=== PATIENT | female | born 1945 | race Caucasian/White ===

== ENCOUNTER 2020-02-28 10:40 | Inpatient (IN) | payer MEDICARE ==
[~2020-02-28] VITALS: Ht 157.5 cm; Wt 62.4 kg
[~2020-02-28 10:40] MED LIST: ALPRAZolam 0.25 MG (XANAX) TAB PO PRN; AMIT100T2 PO; BISACODYL 10 MG SUPP (DULCOLAX) PR PRN; CALC-80 PO; CALCIUM CARBONATE 500 MG (TUMS) TAB.CHEW PO PRN; CARV10CP PO; CHOL10003 PO; DOCUSATE SODIUM 100 MG (COLACE) CAP PO PRN; EZET1TAB43 PO; FISH OIL 1,2001 EAC1 PO; FLEET ENEMA ADULT 1 EA BTL PR PRN; FRS325T PO; HCT25T PO; HYDR1TAB PO; KCL10CCR PO; LACTULOSE SYRUP 10GM/15ML (ENULOSE) 30ML UDC PO PRN; LEFL20TA PO; LEFL20TA4 PO; LEVE1U SQ; LIRA0.6P3 SQ; LOPERAMIDE 2 MG (IMODIUM) TABLET PO PRN; LVT.112T PO; MULT-608 PO; NF-PILO5T PO; ONDANSETRON 4 MG (ZOFRAN) ORAL DISSOLVE TAB PO PRN; PIOG1TBM PO; PNT40TEC PO; SULF1TAB38 PO; TERB250T10 PO; TRAM50TA2 PO; diphenhydrAMINE 25 MG TAB (BENADRYL) PO PRN; guaiFENesin/CODEINE (ROBITUSSIN AC) 10ML UDC PO PRN
--- NOTE | 2020-02-28 10:40 | NUR ---
NATHANIEL CAMARILLO admitted to room 223-1, with an admitting diagnosis of MYOPATHY, on 02/28/20 from [facility] via [facility], accompanied by STAFF.NATHANIEL CAMARILLO introduced to surroundings, call light, bed controls, phone, TV, temperature control, lights, meal times, smoking policy, visitor policy, side rail policy, bathrooms and showers. Patient Rights given to patient in the handbook.NATHANIEL CAMARILLO verbalizes understanding that [facility] is not responsible for the loss or damage to any personal effects or valuables that are kept in the patients posession during their hospitalization. The following Patient Care Plans were discussed with the PT: Discharge Planning, PAIN CONTROL,PT/OT/ST, and WOUND CARE. NATHANIEL CAMARILLO verbalizes understanding of Interdisciplinary Patient Education. Patient and/or family were informed about the Rapid Response Team and its purpose. Patient received Patient Rights Booklet, which includes Privacy Act Statement and Data Collection Information Summary.
[2020-02-28] MEDS ORDERED: GENT30OI2 TP ×2 (11:09)
[2020-02-28] MEDS ORDERED: AMLO-251 PO (11:09)
[2020-02-28] MEDS ORDERED: ACHD5005 PO (11:09)
[2020-02-28] MEDS ORDERED: MULT-422 PO (11:09)
[2020-02-28] MEDS ORDERED: INSU100V6 SQ (11:09)
[2020-02-28] MEDS ORDERED: PANT40VI IV (11:09)
[2020-02-28] MEDS ORDERED: CETI10TA17 PO (11:09)
[2020-02-28] MEDS ORDERED: TRAM50TA3 PO (11:09)
[2020-02-28] MEDS ORDERED: ARGI1POW23 PO (11:09)
[2020-02-28] MEDS ORDERED: ASCO-262 PO (11:09)
[2020-02-28] MEDS ORDERED: CRV25T PO (11:09)
[2020-02-28] MEDS ORDERED: INSU100V39 SQ (11:09)
[2020-02-28] MEDS ORDERED: AMIO200T6 PO (11:09)
[2020-02-28] MEDS ORDERED: ASPI-999 PO (11:10)
[2020-02-28] MEDS ORDERED: SIME80TA16 PO (11:12)
--- NOTE | 2020-02-28 11:16 | NUR ---
THE MED REC WAS ENTERED USING THE DISCHARGE ORDERS FROM [facility] WHEN I GET DISCHARGE ORDERS FROM [facility] THEY PHYSICIAN WILL [place] NEXT TO EACH MEDICATION IF THEY WANT THEM TO BE CONTINUED WITH A YES OR NO. THE FOLLOWING MEDICATIONS ARE LISTED ON THE DISCHARGE WITH A "NO" NEXT TO THEM SO THEY WERE NOT INCLUDED ON THE MED REC: ENOXAPARIN 40MG, LANTUS (THERE IS AN ORDER CONTINUED FOR 8UNITS HS WHICH I DID INCLUDE), PROTONIX INJ, DEXTROSE 50% PRN. AFTER THE MEDICATIONS ARE CONTINUED I WILL SPEAK WITH THE PT AND MAKE ANY CHANGES TO THE MED REC/NOTES IF NEEDED Addendum: 03/03/20 at 1445 by CHAZ HARDING [facility] SPOKE WITH THE PT, WENT THRU THE EXT MED HISTORY, GOT A MEDICATION LIST FROM [facility] AND CALLED [facility] TO COMPLETE THE MED REC MEDICATIONS THAT HAVE BEEN REMOVE DUE TO PT NOT TAKING PRIOR TO [facility]: AMIODARONE 200MG VITAMIN C 500MG GENTAMICIN 0.1% OINT (SCHEDULED OR PRN) HUMALOG LANTUS MTV NORCO 5/325MG MEDICATIONS THAT WERE ADDED TO THE MED REC DUE TO PT TAKING PRIOR TO [facility]: ACTOS 30MG VICTOZA PILOCARPINE 5MG LEFLUNOMIDE 20MG LEVOTHYROXINE 112MCG FENOFIBRATE 160MG AMITRIPTYLINE 100MG ATORVASTATIN 40MG & 20MG (PT TAKES BOTH TO EQUAL 60MG DAILY) PANTOPRAZOLE 40MG OXYBUTYNIN 5MG- DIRECTIONS ARE 5MG TID HOWEVER PT ONLY TAKES 5MG BID OTC MEDS: ASPIRIN 81MG ZYRTEC 10MG PRN SIMETHICONE- [facility] HAS THIS A SCHEDULED MEDICATION HOWEVER AT HOME PT JUST USES PRN CALCIUM W/ VIT D FISH OIL VITAMIN D5000 Addendum: 03/04/20 at 1255 by CHAZ HARDING 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 TODAY WHEN I WENT AND SPOKE WITH THE PT SHE LET ME KNOW OF THE FOLLOWING CHANGES: LEVOTHYROXINE- ACCORDING TO THE PT SHE TAKES 1 TAB DAILY EXCEPT ON MONDAYS SHE DOESNT TAKE A DOSE ZYRTEC 10MG- PT SAYS SHE TAKES THIS BID, WHEN QUESTIONED TO MAKE SURE OF THESE DIRECTIONS, SHE BECAME ADAMANT THAT SHE TOOK IT TWICE DAILY PT MENTIONED SHE TAKES ATORVASTATIN 20MG EVERY OTHER DAY, I LET HER KNOW THAT [facility] HAS THE DIRECTIONS ONCE DAILY- PT SHRUGGED AND ONCE AGAIN SAID SHE TAKES IT EVERY OTHER DAY. WHEN I VERIFIED LEFLUNOMIDE 20MG (DIRECTIONS PER LILIA ARE 1 TAB EVERY OTHER DAY) PT SAYS SHE TAKES 1 TAB DAILY. WHEN I EXPLAIN THE DIRECTIONS FROM [facility] AL[facility] WITH THE QUAINTLY AND DAYS SUPPLIES GIVEN, PT ADMITS SHE MAY HAVE THEM MIXED UP. WHEN I ASKED THE PT ABOUT THE 2 DIFFERENT STRENGTHS OF ATORVASTATIN SHE WAS UNAWARE OF THIS AND SAYS SHE JUST TAKES THE 20MG. THE MED REC HAS BEEN UPDATED WITH ALL THE ABOVE CHANGES
[2020-02-28 11:56] VITALS: BP 137/72
--- NOTE | 2020-02-28 12:03 | Physical Therapy Evaluation ---
PT Evaluation-General Medical Diagnosis Admission Date Feb 28, 2020 at 10:40 Medical Diagnosis: Myopathy Onset Date: Feb 28, 2020 Therapy Diagnosis Therapy Diagnosis: Impaired mobility and strength Precautions Precautions/Isolations: Contact Isolation (c. diff) Weight Bear Status Right Lower Extremity: Right Full Weight Bearing Left Lower Extremity: Left Full Weight Bearing Referral Physician: Flavio Reason for Referral: Evaluation/Treatment Medical History Pertinent Medical History: Atrial Fib (with RVR), DM, HTN, Hypothroidism, Renal Insufficiency (single kidney) Additional Medical History Ovarian Cancer sub-total colectomy kidney removal appendectomy cholecystectomy hysterectomy Current History [facility]; pt diagnosed with colitis and this has started a prolonged hospital stay. During hosptilization pt has coded and received subtotal colectomy and ileostomy and amanuel-splint thick biopsy; postoperatively pt went into A. fib with RVR and underwent cardioversion secondary to hemodynamic instability; pt also diagnosed with C.diff. Pt has been seen by [facility] wound care for abdominal incision. Reviewed History: Yes Social History Home: Single Level Current Living Status: Alone (children live nearby) Entry Into Home: Stairs With Railing PT Steps Into Home: 3 PT Steps Inside Home: 0 Prior Prior Level of Function SCALE: Activities may be completed with or without assistive devices. 3-Sxsgwngbim-myouftl completes the activity by him/herself with no assistance from a helper. 5-Set-up or Clean-up Assistance-helper sets up or cleans up; patient completes activity. Brave assists only prior to or following the activity. 4-Supervision or Touching Assistance-helper provides verbal cues and/or t ouching/steadying and/or contact guard assistance as patient completes activity. Assistance may be provided throughout the activity or intermittently. 3-Partial/Moderate Assistance-helper does LESS THAN HALF the effort. Brave lifts, holds or supports trunk or limbs, but provides less than half the effort. 2-Substantial/Maximal Assistance-helper does MORE THAN HALF the effort. Brave lifts or holds trunk or limbs and provides more than half the effort. 9-Kfqvuyviy-hrtecf does ALL the effort. Patient does none of the effort to complete the activity. Or, the assistance of 2 or more helpers is required for the patient to complete the activity. If activity was not attempted, code reason: 7-Patient Refused. 9-Not Applicable-not attempted and the patient did not perform the activity before the current illness, exacerbation or injury. 10-Not Attempted due to Environmental Limitations-(lack of equipment, weather restraints, etc.). 88-Not Attempted due to Medical Conditions or Safety Concerns. Bed Mobility: 6 Transfers (B,C,W/C): 6 Gait: 6 Stairs: 6 Wheelchair Mobility: 9 Indoor Mobility (Ambulation): Independent Stairs: Independent Prior Devices Use: None PT Evaluation-Current Subjective Pt presents sitting upright in wheelchair. Pt agrees to PT. Pt reports no pain. Pt/Family Goals Gain strength to return home Objective Patient Orientation: Person, Place, Time, Eyes Open, Situation Attachments: Colostomy/Ileostomy ROM/Strength ROM Lower Extremities WFL Strength Lower Extremities R hip flexion 4/5 L hip flexion 3+/5 R knee ext 5/5 L knee ext 5/5 R knee flex 5/5 R knee flex 4+/5 Integumentary/Posture Integumentary refer to nursing notes Bowel Incontinence: No Bladder Incontinence: No Posture WFL Neuromuscular (Tone, Coordination, Reflexes) No noticeable impairments Sensory Vision: Wears Glasses Hearing: Functional Sensation Right Lower Extremit: Intact Sensation Left Lower Extremity: Intact Sensation Lower Extremities BLE sensation intact to light touch L2-S2 Transfers Roll Left & Right (QC): 4 Sit to Lying (QC): 4 Lying to Sitting/Side of Bed(Q: 4 Sit to Stand (QC): 4 Chair/Vhc-my-Guqqn Xfer(QC): 4 Toilet Transfer (QC): 4 Car Transfer (QC): 4 Pt able to complete bed mobility with SBA. Pt given CGA for sit to stand, chair to chair, toilet, and car transfers. Pt completes car transfers with step in-sit down-bring other leg into car method; pt struggled to lift initial leg into vehicle and was instructed on the sit and then BLE swing in method to make things easier. Gait Does the Patient Walk?: Yes Mode of Locomotion: Walk Anticipated Mode of Locomotion: Walk Walk 10 feet (QC): 4 Walk 50 ft with 2 Turns(QC): 4 Walk 150 ft (QC): 4 Walking 10ft/uneven surface-QC: 4 Distance: 150' Gait Assistive Device: FWW Comments/Gait Description Pt is ambulating with step through pattern and receives CGA for 150' and over uneven surface. Wheelchair Training Does the Pt Use a Wheelchair?: No Wheel 50 ft with 2 turns (QC): 9 Wheel 150 ft (QC): 9 Stairs #of Steps: 1 1 Step (curb) (QC): 4 4 Steps (QC): 88 12 Steps (QC): 88 Walking Assistive Device: Walker Pt able to ascend/descend one step steadily; pt utilized walker for UE weight support and therapist provided SBA. Balance Sitting Static: Normal Sitting Dynamic: Normal Standing Static: Normal Standing Dynamic: Normal Picking up an Object (QC): 88 Treatment Co-treated [id number] due to patient's limitation in strength, mobility, and coordination of LEs and UEs. PT focuses on patient's ambulation, mobility and transfers while OT focused on dressing, bathing, and ADLs. Assessment/Needs Pt is weak and fatigues easily with activity. Pt has large incision on abdomen but reports no precautions to bending or twisting. Pt has not used walker in PLOF but is able to maneuver AD in safe manner. Rehab Potential: Good PT Short Term Goals Short Term Goals Time Frame: Mar 06, 2020 Roll Left & Right: 6 Sit to lyin Lying to sitting on side of be: 6 Sit to stand: 6 Chair/ynw-lx-hicwc transfer: 5 4 steps: 4 Picking up objects: 4 PT Rotary Derrick Operator Goals Rotary Derrick Operator Goals PT Rotary Derrick Operator Goals Time Frame: Mar 13, 2020 Roll Left & Right (QC): 6 Sit to Lying (QC): 6 Lying-Sitting on Side/Bed(QC): 6 Sit to Stand (QC): 6 Chair/Ulw-br-Tedvz Xfer(QC): 6 Toilet Transfer (QC): 6 Car Transfer (QC): 6 Does the Patient Walk: Yes Walk 10 feet (QC): 6 Walk 50ft with 2 Turns (QC): 6 Walk 150 ft (QC): 6 Walking 10ft on Uneven Surface: 6 1 Step (curb) (QC): 6 4 Steps (QC): 6 12 Steps (QC): 6 Picking up an Object (QC): 6 Does the Pt use WC or Scooter?: No Wheel 50 feet with 2 turns (QC: 9 Wheel 150 feet: 9 PT Plan Problem List Problem List: Activity Tolerance, Functional Strength, Safety, Balance, Gait, Transfer, Bed Mobility, ROM Treatment/Plan Treatment Plan: Continue Plan of Care Treatment Plan: Bed Mobility, Education, Functional Activity Maikel, Functional Strength, Group Therapy, Gait, Safety, Therapeutic Exercise, Transfers Treatment Duration: Mar 13, 2020 Frequency: At least 5 of 7 days/Wk (IRF) Estimated Hrs Per Day: 1.5 hours per day Patient and/or Family Agrees t: Yes Safety Risks/Education Patient Education: Gait Training, Transfer Techniques, Steps, Correct Pos itioning, Safety Issues Teaching Recipient: Patient Teaching Methods: Demonstration, Discussion Response to Teaching: Reinforcement Needed Discharge Recommendations Plan Pt will work on bed mobility, balance and gait training, transfers, and therapeutic exercises. Therapy Discharge Recommendati: Home & Family Time/GCodes Time In: 1040 Time Out: 1150 Total Billed Treatment Time: 60 Total Billed Treatment 1 visit EVL 10' FA 50' Pt eval [id number]; OT eval [id number]; Co-treated [id number] due to patient's limitation in strength, mobility, and coordination of LEs and UEs. PT focuses on patient's ambulation, mobility and transfers while OT focused on dressing, bathing, and ADLs. ARELI JENNINGS PT Feb 28, 2020 12:03
--- NOTE | 2020-02-28 12:04 | Occupational Therapy Eval ---
OT Evaluation-General/PLF Medical Diagnosis Admission Date Feb 28, 2020 at 10:40 Medical Diagnosis: colitis with colectomy, debility Onset Date: Jan 20, 2020 Therapy Diagnosis Therapy Diagnosis: Decreased ADL status Precautions Precautions/Isolations: Contact Isolation (C-diff hx), Standard Precautions Referral Physician: Flavio Referral Reason: Activity Tolerance, Self Care, Evaluation/Treatment, Strengthening/ROM Medical History Additional Medical History HTN, DM, a fib with RVR, hypothyroidism, single kidney, ovarian Ca Current History 01/19 admits with abdominal pain and colitis 01/20 code blue status with cardiac arrest/ resp failure during subtotal colectomy/ ileostomy; intubated with PNA 01/29 extubated Reviewed History: Yes Social History Home: Single Level Current Living Status: Alone Entry Into Home: Stairs With Railing Steps Into Home: 1 Steps Inside Home: 0 ADL-Prior Level of Function SCALE: Activities may be completed with or without assistive devices. 6-Qgpvnlldtp-vmwcukr completes the activity by him/herself with no assistance from a helper. 5-Set-up or Clean-up Assistance-helper sets up or cleans up; patient completes activity. [place] assists only prior to or following the activity. 4-Supervision or Touching Assistance-helper provides verbal cues and/or touching/steadying and/or contact guard assistance as patient completes activity. Assistance may be provided throughout the activity or intermittently. 3-Partial/Moderate Assistance-helper does LESS THAN HALF the effort. [place] lifts, holds or supports trunk or limbs, but provides less than half the effort. 2-Substantial/Maximal Assistance-helper does MORE THAN HALF the effort. [place] lifts or holds trunk or limbs and provides more than half the effort. 7-Vmwvapdat-iwncum does ALL the effort. Patient does none of the effort to complete the activity. Or, the assistance of 2 or more helpers is required for the patient to complete the activity. If activity was not attempted, code reason: 7-Patient Refused. 9-Not Applicable-not attempted and the patient did not perform the activity before the current illness, exacerbation or injury. 10-Not Attempted due to Environmental Limitations-(lack of equipment, weather restraints, etc.). 88-Not Attempted due to Medical Conditions or Safety Concerns. ADL PLOF Comments Pt was IND without use of AE during I/ADLs. Self Care: Independent Functional Cognition: Independent DME/Equipment: Bath Chair, Grab Bars, Shower Occupation: retired Drive Self: Yes OT Current Status Subjective Pt admits from outside hospital. Pt is accompanied by OT/ PT to ARU. Pt alert/ oriented, very pleasant, denies pain. Pt agreeable to OT/ PT co-treat. PT eval: [id number] OT eval: [id number] OT/ PT co-treat: [id number]: OT addresses UE movement, ADL status, problem solving; PT addresses LE movement, balance/ transfers. [id number] (25): Pt in recliner. States / pain abdomen. Pt states pain meds already administered. Continued at 11/07 post session. Mental Status/Objective Patient Orientation: Normal For Age Attachments: Colostomy/Ileostomy Current Glasses/Contacts: Yes Hearing Aids: No Dentures/Partials: Yes Hand Dominance: Right Upper Extremity ROM WFL BUE Upper Extremity Coordination WFL BUE Upper Extremity Sensation WFL BUE Upper Extremity Strength WFL BUE (4/5) Edema: none noted. ADL-Treatment Eating (QC): 6 (drinks with IND. per clinical judgment pt is IND with eating tasks.) Oral Hygiene (QC): 6 (IND per clinical judgement) Shower/Bathe Self (QC): 4 (CGA and cues for shower chair transfer. Pt able to reach all areas. SBA during showering/ CGA in stance. ) Upper Body Dressing (QC): 5 (s/u, denies bra donning. ) Lower Body Dressing (QC): 4 (threads BLE in sit witout AE, stands with CGA and hikes over hips.) On/Off Footwear (QC): 3 (min A doffing knee high socks, pt completes sock donning with IND.) Toileting Hygiene (QC): 4 (CGA in stance for bottom hygiene.) Other Treatments Pt completes sit to stand from w/c level with CGA, ambulates ~3 steps to w/c without AE/ with CGA. Pt is pushed to ARU, educated on OT role and ARU expectations. Pt completes PT eval/ OT eval. Pt's nurse notified of large abdominal wound. Nursing cares for and pt is wrapped completely prior to shower, requires 3 minute rest break prior to stand/ showering tasks. Pt completes bed mob and sit to stand SBA, CGA ambulation and competes showering/ dressing as outlined. Pt states fatigue post-shower. Pt has good problem solving. Sits in recliner end of session, all needs met, call light in reach. Pt seen for individual tx in recliner post-PT. Pt states fatigue and 7/10 pain in abdomen. Pt states has already had pain pills. Pt agrees to UE fx activity tolerance/ strengthening activities. Pt completes 10 minutes continuous reaching/ fine motor task. No SOB. Pt given hand out and educated on UE theraband ex with yellow theraband. Pt completes 10 reps bilaterally of following ex: shoulder scaption, back flies, shoulder int/ext rotation, triceps/ biceps. Pt completes with 2 rest breaks with minimal SOB. pt is encouraged to take rest breaks and to complete ex 2-3 x per day over weekend with 10-15 reps each UE. Pt agrees, requests back to bed. Pt sit to stand with SBA and ambulates to bed, sit to supine SBA. Pt adjusted in bed, all needs met, call light in reach. Education OT Patient Education: Correct positioning, Exercise program, Home exercise program, Purpose of tx/functional activities, Rehab process, Safety issues, Transfer techniques Teaching Recipient: Patient Teaching Methods: Demonstration, Discussion Response to Teaching: Verbalize Understanding, Return Demonstration OT Short Term Goals Short Term Goals Time Frame: Mar 06, 2020 Lower body dressin Putting on/taking off footwear: 6 OT [facility] Goals Marine Rigger Goals Time Frame: Mar 13, 2020 Eating (QC): 6 Oral Hygiene (QC): 6 Toileting Hygiene (QC): 6 Shower/Bathe Self (QC): 6 Upper Body Dressing (QC): 6 Lower Body Dressing (QC): 6 On/Off Footwear (QC): 6 Demonstrate ability to change colonoscopy bag with s/u-IND. Additional Goals: 1-Demonstrate ADL Tasks, 2-Verbalize Understanding, 3- ImproveStrength/Maikel 1=Demonstrate adherence to instructed precautions during ADL tasks. 2=Patient will verbalize/demonstrate understanding of assistive devices/modifications for ADL. 3=Patient will improve strength/tolerance for activity to enable patient to perform ADL's. OT Education/Plan Problem List/Assessment Assessment: Decreased Activ Tolerance, Impaired Funct Balance, Impaired I ADL's, Impaired Self-Care Skills Discharge Recommendations Plan/Recommendations: Continue POC Therapy Discharge Recommendati: Home & Family Treatment Plan/Plan of Care Treatment,Training & Education: Yes Patient would benefit from OT for education, treatment and training to promote independence in ADL's, mobility, safety and/or upper extremity function for ADL's. Plan of Care: ADL Retraining, Functional Mobility, Group Exercise/Act as Ind, UE Funct Exercise/Act, UE Neuromus Re-Ed/Coord Treatment Duration: Mar 13, 2020 Frequency: At least 5 of 7 days/Wk (IRF) Estimated Hrs Per Day: 1.5 hours per day Agreement: Yes Rehab Potential: Good Time/GCodes Start Time: 10:50 (1325) Stop Time: 11:50 (1350) Total Time Billed (hr/min): 85 (60+25) Billed Treatment Time PT eval: [id number] OT eval: [id number] OT/ PT co-treat: [id number]: OT addresses UE movement, ADL status, problem solving; PT addresses LE movement, balance/ transfers. 1, EVM (10), ADL 3 (50)= 60 1, EX 2 = 25 Total time: 85 SEEMA AGUIRRE OTR Feb 28, 2020 12:04
[2020-02-28] MEDS ORDERED: GENTAMICIN SULFATE TP PRN (12:15)
--- NOTE | 2020-02-28 12:18 | PM&R Post Admission Assessment ---
PM&R HP Date of Visit: Feb 28, 2020 Time of Visit: 12:20 History of Present Illness CC: Debility following colitis episode s/p ileostomy s/p cardiac arrest 01/21/20 HPI: This is a 75yoWF clinic patient of Jose L Corbett who presented from [place] stay from 02/08/20 until today 02/28/20 to recover from long stay at [facility] following subtotal colectomy and placement of ileostomy and amanuel-splint thick biopsy s/p AF w/RVR episode s/p cardioversion due to instability. C diff colitis was diagnosed receiving Vanc IV and rectal enema and Flagyl. Patient had been on TPN. Patient now eating a bit more but more loose stools so C diff sent out today which was negative so will monitor only. Abdominal wound will require wound care. PLOF independent and driving. [facility] KATHY note: Joseluis Kidd MD Date of Admission:01/21/2020 Date of Discharge:02/07/2020 Diagnosis S/P colectomy Debility On total parenteral nutrition Ileostomy status Type 2 diabetes mellitus with hyperglycemia Pleural effusion on right Thrombocytopenia Abnormal LFTs (liver function tests) Pulmonary congestion CKD (chronic kidney disease) stage 3, GFR 30-59 ml/min Benign hypertension Primary hypothyroidism Mixed hyperlipidemia Resolved Hospital Problems Diagnosis Date Resolved C. difficile colitis 02/07/2020 Accelerated hypertension 02/07/2020 Acute metabolic encephalopathy 02/07/2020 HAP (hospital-acquired pneumonia) 02/07/2020 Ischemia, bowel; distal small bowel and colon 02/07/2020 Ischemic colitis 02/07/2020 Ventilator dependence 02/07/2020 Acute respiratory failure 02/07/2020 Hyponatremia 02/07/2020 Paroxysmal atrial fibrillation with rapid ventricular response 02/07/2020 Hemodynamic instability 02/07/2020 w Cardiac arrest 02/07/2020 Severe sepsis with septic shock 02/07/2020 Zoe Hutchinson a 75 y.o.femalewho was admitted to [facility] on 01/21/2020for evaluation and management of abdominal pain and diarrhea. She was admitted for further evaluation. On the day of admission in the morning, patient fainted and CODE BLUE was called. Patient was found to be pulseless for approximately 2 minutes, chest compressions were started. ABG showed metabolic acidosis, 1 ampoule of bicarb was given with 1 L of normal saline bolus. Patient was then transferred to ICU/TCU. ROSCwas achieved. Patient kept complaining of persistent abdominal pain and imaging showed edematous small bowel with free intraperitoneal fluid. She was hypotensive and was requiring vasopressor. General surgery, GI and infectious disease were consulted. She underwent subtotal colectomy, and ileostomy and perisplenic biopsy. In the postoperative phase she went into A. fib with RVR and then was cardioverted by Dr. Vann because of hemodynamic instability. During her time in the hospital she was treated with IV meropenem, IV ciprofloxacin, IV Flagyl, vancomycin enemas for perirectal colitis secondary to C. difficile. During her hospital course she had worsening thrombocytopenia which was thought to be likely secondary to antibiotic use versus worsening infection. She progressed well and then was downgraded to general floor. Her stay was uneventful on the general floorand her confusion also resolved. She was then subsequently discharged to [facility] and was recommended to continue micafungin till 02/11, rectal vancomycin, IV Flagyl till 02/07 and doxycycline till 02/07 for possible pneumonia. She was recommended to follow-up with PCP, ID, general surgery and hematology after discharge. Repeat CBC, CMP, ESR and CRP weekly while on antibiotics. At the time of discharge patient was at her baseline mentation.It is recommended that thefollow-up provider at [facility] continue TPN and consult in-house fire extinguisher sprinkler inspector/dietitian for further recommendation. Amiodarone prescription was given as per cardiology and antibiotics/antifungal medications as per infectious disease service. Antibiotic medications were prescribed by infectious disease as per culture results. Past Tmfguqx-Begyyk-Bakbzk Hx Past Med/Social Hx: Reviewed Nursing Past Med/Soc Hx, Reviewed and Corrections made Patient Social History Marrital Status: Employed/Student: retired Alcohol Use: Denies Use Recreational Drug Use: No Smoking Status: Former Smoker Former Smoker, Quit: Jul 28, 1984 Type Used: Cigarettes Physical Abuse Screen: No Sexual Abuse: No Recent Foreign Travel: No Contact w/other who traveled: No Recent Infectious Disease Expo: No Immunizations Up To Date Date of Pneumonia Vaccine: Feb 06, 2020 Date of Influenza Vaccine: Feb 05, 2020 Past Medical History Cardiac: Atrial Fibrillation, Hypertension Reproductive: No solitary kidney Gastrointestinal: Colitis Endocrine: Diabetes, Insulin dep, Hypothyroidsim Cancer: Ovarian Did You Recieve Any Treatments: Yes What Type of Treatment Did You: Surgical Intervention Family History Arthritis 19 MOTHER Cardiovascular disease 19 MOTHER Diabetes mellitus 19 FATHER 19 MOTHER Self Care: Independent Functional Cognition: Independent Occupation: retired Drive Self: Yes Eatin (drinks with IND. per clinical judgment pt is IND with eating tasks.) Oral Hygiene: 6 (IND per clinical judgement) Shower/Bathe Self: 4 (CGA and cues for shower chair transfer. Pt able to reach all areas. SBA during showering/ CGA in stance. ) Upper Body Dressin (s/u, denies bra donning. ) Lower Body Dressin (threads BLE in sit witout AE, stands with CGA and hikes over hips.) On/Off Footwear: 3 (min A doffing knee high socks, pt completes sock donning with IND.) Toileting Hygiene: 4 (CGA in stance for bottom hygiene.) PM&R Allergy/Meds/Data Review Allergies Coded Allergies: Penicillins (Verified Allergy, Unknown, 02/28/20) raspberry (Verified Allergy, Unknown, 02/28/20) Home Medications Scheduled Amiodarone HCl (Amiodarone HCl), 200 MG PO BID, (Reported) Amlodipine Besylate (Amlodipine Besylate), 10 MG PO DAILY, (Reported) Ascorbate Calcium (Vitamin C), 500 MG PO DAILY, (Reported) Aspirin (Aspirin), 81 MG PO DAILY, (Reported) Carvedilol (Coreg), 25 MG PO BID, (Reported) Cetirizine HCl (Cetirizine HCl), 10 MG PO DAILY, (Reported) Gentamicin Sulfate (Gentamicin Sulfate), 1 APPLIC TP DAILY, (Reported) Insulin Glargine,Hum.rec.anlog (Lantus), 8 UNIT SQ HS, (Reported) Insulin Lispro (Insulin Lispro), 0-14 UNIT SQ ACHS, (Reported) Multivitamin with Minerals (One Daily Plus Minerals), 1 EACH PO DAILY, (Reported) Simethicone (Simethicone), 80 MG PO TID, (Reported) Scheduled PRN Gentamicin Sulfate (Gentamicin Sulfate), 1 APPLIC TP BID PRN for WOUNDS/INFECTIONS, (Reported) Hydrocodone/Acetaminophen (Hydrocodone-Acetamin 5-325 mg), 1 EACH PO QID PRN for PAIN-SEVERE (8-10), (Reported) Tramadol HCl (Tramadol HCl), 100 MG PO TID PRN for PAIN-MODERATE (5-7), (Reported) Discontinued Medications Amitriptyline Hcl (Amitriptyline Hcl), 1 EACH PO HS, (Reported) Discontinued Reason: No Longer Taking Calcium Carbonate/Vitamin D3 (Calcium 600 + D Caplet), 2 EACH PO DAILY, (Reported) Discontinued Reason: No Longer Taking Carvedilol Phosphate (Coreg Cr), 25 MG PO DAILY, (Reported) Discontinued Reason: No Longer Taking Cholecalciferol (Vitamin D), 2,000 UNIT PO BID, (Reported) Discontinued Reason: No Longer Taking Ezetimibe/Simvastatin (Vytorin 10-20 Mg Tablet), 1 EACH PO DAILY, (Reported) Discontinued Reason: No Longer Taking Ferrous Sulfate (Iron), 1 TAB PO DAILY, (Reported) Discontinued Reason: No Longer Taking Hydrochlorothiazide (Hydrochlorothiazide), 1 EACH PO DAILY, (Reported) Discontinued Reason: No Longer Taking Hydrocodone Bit/Acetaminophen (Vicodin 5-500 Tablet), 1-2 EACH PO Q4H-6H PRN, (Reported) Discontinued Reason: No Longer Taking Insulin Determir (Levemir Pen), 15 UNITS SQ HS, (Reported) Discontinued Reason: No Longer Taking Leflunomide (Leflunomide), 20 MG PO BID, (Reported) Discontinued Reason: No Longer Taking Levothyroxine Sodium (Levothyroxine 112 Mcg Tab), 1 EACH PO DAILY, (Reported) Discontinued Reason: No Longer Taking Liraglutide (Victoza 3-Hussain), 18 UNITS SQ DAILY, (Reported) Discontinued Reason: No Longer Taking Multivitamins (Multiple Vitamin), 1 TAB PO DAILY, (Reported) Discontinued Reason: No Longer Taking [place]-3 Fatty Acids/Fish Oil (Fish Oil 1,200 Mg Softgel), 1 EACH PO DAILY, (Reported) Discontinued Reason: No Longer Taking Pantoprazole Sodium (Protonix), 1 TAB PO DAILY, (Reported) Discontinued Reason: No Longer Taking Pilocarpine (Salagen (Non-Formulary)), 5 MG PO QID, (Reported) Discontinued Reason: No Longer Taking Pioglitazone Hcl/Metformin Hcl (Actoplus Met Xr 30-1,000 Mg Tb), 1 EACH PO DAILY, (Reported) Discontinued Reason: No Longer Taking Potassium Chloride (Klor-Con 10), 10 MEQ PO TID, (Reported) Discontinued Reason: No Longer Taking Terbinafine Hcl (Terbinafine Hcl), 250 MG PO DAILY, (Reported) Discontinued Reason: No Longer Taking Tramadol Hcl (Tramadol Hcl), 50 MG PO Q4 PRN, (Reported) Discontinued Reason: No Longer Taking Current Medications Current Medications Reviewed Review of Systems Constitutional: see HPI, malaise, weakness EENTM: no symptoms reported Respiratory: no symptoms reported Cardiovascular: no symptoms reported Gastrointestinal: abdominal pain, diarrhea Genitourinary: no symptoms reported Musculoskeletal: no symptoms reported Skin: no symptoms reported Psychiatric/Neurological: No Symptoms Reported Physical Exam Physical Exam Vital Signs Vital Signs - First Documented 02/28/20 11:56 Temp 35.7 Pulse 71 Resp 18 B/P (MAP) 137/72 O2 Delivery Room Air O2 Flow Rate 96.00 Capillary Refill : Height, Weight, BMI Height: '" Weight: lbs. oz. kg; 161.29 BMI Method:Stated General Appearance: No Apparent Distress, WD/WN, Chronically ill Eyes: Bilateral Eye Normal Inspection, Bilateral Eye PERRL HEENT: PERRL/EOMI, Normal ENT Inspection, Pharynx Normal Neck: Full Range of Motion, Normal Inspection, Non Tender, Supple, Carotid Bruit Respiratory: Chest Non Tender, Lungs Clear, Normal Breath Sounds, No Accessory Muscle Use, No Respiratory Distress Cardiovascular: Regular Rate, Rhythm, No Edema, No Gallop, No JVD, No Murmur, Normal Peripheral Pulses Gastrointestinal: Normal Bowel Sounds, No Organomegaly, No Pulsatile Mass, Non Tender, Soft Back: Normal Inspection, No CVA Tenderness, No Vertebral Tenderness Extremity: Normal Capillary Refill, Normal Inspection, Normal Range of Motion, Non Tender, No Calf Tenderness, No Pedal Edema Neurologic/Psychiatric: Alert, Oriented x3, No Motor/Sensory Deficits, 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, Abnormal Gait, Motor Weakness (generalized) Skin: Normal Color, Warm/Dry Lymphatic: No Adenopathy PM&R Medical Assessment & Plan REHAB/MEDICAL ASSESSMENT AND PLAN: REHAB IMPAIRMENT GROUP: Debility ETIOLOGIC DIAGNOSIS: Debility The comorbidities that impact the patients function and/or functional outcome by: poor reserve, diarrhea, AF, Single kidney, h/o ovarian cancer REHAB PLAN: The patient is being admitted to our comprehensive inpatient rehabilitation facility and can tolerate the intensity of service consisting of at least: 180 minutes of therapy a day, 5 out of 7 days a week Rehab treatment will consist of: PT OT will focus on regaining function to return home with independence in ADL's and ambulatory ability The patient/family has a good understanding of our discharge process and will benefit from an interdisciplinary inpatient rehabilitation program. The patient has potential to make improvement and is in need of at least two of the following multidisciplinary therapies including but not limited to physical, occupational, speech, and prosthetics and orthotics. Additionally the patient will need services from respiratory, nutritional services, wound care, psychology, etc. (Customize this to each patient). Given the patients complex condition and risk of further medical complications, rehabilitation services cannot be safely or effectively provided at a lower level of care such as a shelter facility. BARRIERS TO DISCHARGE: Poor reserve ESTIMATED LOS: 7 days DISPOSITION: Home RELEVANT CHANGES SINCE PREADMISSION SCREENING: I have compared the patients medical and functional status at the time of the preadmission screening and there are: no changes PROGNOSIS: Good REHABILITATION GOALS: 1. PT OT will focus on regaining function to return home with independence in ADL's and ambulatory ability All the above goals were reviewed with the patient and he/she is in agreement. By signing this document, I acknowledge that I have personally performed a full physical examination on this patient within 24 hours of admission to this inpatient rehabilitation facility and have determined the patient to be able to tolerate the above course of treatment at an intensive level for a reasonable period of time. I will be completing a detailed individualized Plan of Care for this patient by day #4 of the patients stay based upon the Preadmission Screen, the Post-Admission Evaluation, and the therapy evaluations. 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 difficile colitis ICD Codes: A04.72 - Enterocolitis due to Clostridium difficile, not specified as recurrent (3) Atrial fibrillation ICD Codes: I48.91 - Unspecified atrial fibrillation (4) History of cardioversion ICD Codes: Z98.890 - Other specified postprocedural states (5) Hypertension ICD Codes: I10 - Essential (primary) hypertension (6) Diabetes mellitus ICD Codes: E11.9 - Type 2 diabetes mellitus without complications (7) Hypothyroidism ICD Codes: E03.9 - Hypothyroidism, unspecified (8) Solitary kidney ICD Codes: Q60.0 - Renal agenesis, unilateral (9) Ovarian cancer in remission ICD Codes: Z85.43 - Personal history of malignant neoplasm of ovary (10) Ileostomy in place ICD Codes: Z93.2 - Ileostomy status Assessment/Plan Assessment and Plan Assess & Plan/Chief Complaint Assessment: Myopathy AF w/RVR s/p cardioversion Hypothyroidism C diff colitis hx Ovarian cancer hx DM HTN Solitary kidney Plan: Home meds IRF protocol Insulin Monitor stools LORENZO MIMS DO Feb 28, 2020 12:18
[2020-02-28] MEDS ORDERED: ACETAMINOPHEN 325 MG TABLET PO PRN (12:45)
[2020-02-28] MEDS: polyethylene glycoL POWDER 17 GM (MIRALAX) PACK PO SCH ×2 (13:14→21:46)
[2020-02-28] MEDS: ENOXAPARIN 40 MG/0.4 ML (LOVENOX) SYR SC SCH (13:14)
[2020-02-28] MEDS: DOCUSATE SODIUM 100 MG (COLACE) CAP PO SCH ×2 (13:14→21:46)
[2020-02-28] MEDS: SENNA W/DOCUSATE (SENOKOT S) TABLET PO SCH ×2 (13:14→21:46)
[2020-02-28] MEDS: SIMETHICONE 80 MG (MYLICON) CHEW PO SCH ×2 (13:15→21:14)
--- NOTE | 2020-02-28 13:32 | Physical Therapy Daily Note ---
PT Daily Note-Current Subjective Pt presents in recliner. PT agrees to PT. Pt reports 7/10 pain at abdominal incision. Appearance At conclusion of PT treatment pt returns to recliner; she has access to tray, call button, and all needs have been met. Mental Status Patient Orientation: Person, Place, Time, Eyes Open, Situation Attachments: Colostomy/Ileostomy Transfers SCALE: Activities may be completed with or without assistive devices. 8-Dlqgvcpejz-cnpiyub completes the activity by him/herself with no assistance from a helper. 5-Set-up or Clean-up Assistance-helper sets up or cleans up; patient completes activity. [place] assists only prior to or following the activity. 4-Supervision or Touching Assistance-helper provides verbal cues and/or touching/steadying and/or contact guard assistance as patient completes activity. Assistance may be provided throughout the activity or intermittently. 3-Partial/Moderate Assistance-helper does LESS THAN HALF the effort. [place] lifts, holds or supports trunk or limbs, but provides less than half the effort. 2-Substantial/Maximal Assistance-helper does MORE THAN HALF the effort. [place] lifts or holds trunk or limbs and provides more than half the effort. 5-Gdkmnfllq-lmplas does ALL the effort. Patient does none of the effort to complete the activity. Or, the assistance of 2 or more helpers is required for the patient to complete the activity. If activity was not attempted, code reason: 7-Patient Refused. 9-Not Applicable-not attempted and the patient did not perform the activity before the current illness, exacerbation or injury. 10-Not Attempted due to Environmental Limitations-(lack of equipment, weather restraints, etc.). 88-Not Attempted due to Medical Conditions or Safety Concerns. Sit to Stand (QC): 4 Chair/Jwz-zy-Xwlhx Xfer(QC): 4 Weight Bearing Right Lower Extremity: Right Full Weight Bearing Left Lower Extremity: Left Full Weight Bearing Gait Training Does the Patient Walk?: Yes Distance: 150'x2 Walk 10 feet (QC): 4 Walk 50 ft with 2 Turns(QC): 4 Walk 150 ft (QC): 4 Gait Persons Needed: 1 Gait Assistive Device: FWW SBA. Pt felt fatigued and required a seated rest break after approx 150'. Pt slight LLE lag instead of fully clearly ground in swing stance. Exercises Seated Therapy Exercises: Ankle pumps (HR/TR), Long arc quads, Hip flexion, Hip abd/add Seated Reps: 20 Treatments Gait Training and LE strengthening Assessment Current Status: Good Progress Pt is fatigued by gait training but able to continue with seated exercises afterwards. Pt slightly drug LLE with ambulation but this did not cause any unsteadiness. PT Short Term Goals Short Term Goals Time Frame: Mar 06, 2020 Roll Left & Right: 6 Sit to lyin Lying to sitting on side of be: 6 Sit to stand: 6 Chair/ppr-us-fyrhg transfer: 5 4 steps: 4 Picking up objects: 4 PT Correction Goals Correction Goals PT Store Deli Manager Goals Time Frame: Mar 13, 2020 Roll Left & Right (QC): 6 Sit to Lying (QC): 6 Lying-Sitting on Side/Bed(QC): 6 Sit to Stand (QC): 6 Chair/Eis-sf-Zgqom Xfer(QC): 6 Toilet Transfer (QC): 6 Car Transfer (QC): 6 Does the Patient Walk: Yes Walk 10 feet (QC): 6 Walk 50ft with 2 Turns (QC): 6 Walk 150 ft (QC): 6 Walking 10ft on Uneven Surface: 6 1 Step (curb) (QC): 6 4 Steps (QC): 6 12 Steps (QC): 6 Picking up an Object (QC): 6 Does the Pt use WC or Scooter?: No Wheel 50 feet with 2 turns (QC: 9 Wheel 150 feet: 9 PT Plan Problem List Problem List: Activity Tolerance, Functional Strength, Safety, Balance, Gait, Transfer, Bed Mobility, ROM Treatment/Plan Treatment Plan: Continue Plan of Care Treatment Plan: Bed Mobility, Education, Functional Activity Maikel, Functional Strength, Group Therapy, Gait, Safety, Therapeutic Exercise, Transfers Treatment Duration: Mar 13, 2020 Frequency: At least 5 of 7 days/Wk (IRF) Estimated Hrs Per Day: 1.5 hours per day Patient and/or Family Agrees t: Yes Safety Risks/Education Patient Education: Gait Training, Transfer Techniques, Correct Positioning, Safety Issues Teaching Recipient: Patient Teaching Methods: Demonstration, Discussion Response to Teaching: Reinforcement Needed Time/GCodes Time In: 1255 Time Out: 1320 Total Billed Treatment Time: 25 Total Billed Treatment 1 visit GT 15' EX 10' ARELI JENNINGS PT Feb 28, 2020 13:32
--- NOTE | 2020-02-28 14:14 | NUR ---
PT. IN SPECIAL ISOLATION FOR C-DIFF. 1ST C-DIFF RESULTS NEGATIVE. NEED 2ND STOOL FOR C-DIFF COLLECTED(IN 48 HRS) 03/01/20 IN ORDER TO REMOVE PT. FROM SPECIAL ISOLATION STATED PER NISHANT CAMPOS RN (INFECTIOUS CONTROL NURSE).
--- NOTE | 2020-02-28 15:27 | ST Cognitive Linguistic Eval ---
Speech Evaluation-General Medical Diagnosis Myopathy Onset Date: Feb 28, 2020 Therapy Diagnosis Therapy Diagnosis: Cognitive-communication Referral Referring Physician: Dr. Muniz Medical History Pertinent Medical History: Atrial Fib (with RVR), DM, HTN, Hypothroidism, Renal Insufficiency (single kidney) Reviewed History: Yes Social History Current Living Status: Alone (children live nearby) Speech PLF-Current Status Prior Level of Function Patient lived home alone where she was independent. She has family who live near by for support as needed. Subjective Patient was pleasant and cooperative with the cognitive assessment. Language Eval: Auditory Comprehends Simple Yes/No Ques: Functional Indent/Objects [place]: Functional Ident/Pics in [place]s: Functional Follows 1-Step Commands: Functional Follows Complex Directions: Functional Follows General Conversations: Functional Language Eval: Verbal Language Completes Spontaneous Greeting: Functional Produces Auto, Serial Info: Functional Imitates Simple Words/Phrases: Functional Word Finding: Functional Requests Basic Needs: Functional States Basic Personal Info: Functional Expresses Complex Ideas: Functional Objective Cognitive Domain Attention: WNL Memory: WNL Problem Solving: Functional Executive Functions: WNL Visuospatial Skills: WNL Composite Severity Rating: WNL Clock Drawing Severity Rating: WNL Objective Formal/Standardized Tests [facility] Mental Status ([facility]) Results 28/30, within normal limits Oral Motor/Speech Production Within Normal Limits Impression Patient is a pleasant 75 y/o female who was admitted to the ARU for strengthening prior to returning home. The patient was given the SLUMS at bedside with a score of 28/30 obtained. The patient's score is within the normal range of function. No further ST services are warranted at this time. Speech Patient Assess Expression of Ideas/Wants: Expression (4) Understanding Verbal Content: Understands (4) Brief Interview-Mental Status: Yes Repetition of Three Words: Three (3) Temporal Orientation: Year: Correct (3) Temporal Orientation: Month: Accurate within 5 days(2) Temporal Orientation: Day: Correct (1) Recall : Wear to say "Sock": Yes,after cueing (1) Recall : Color: Yes, after cueing (1) Recall : Bed: Yes, no cue required (2) Memory/Recall Ability: Current season, That he or she is in a hsp/hsp unit Speech-Plan Patient/Family Goals Patient/Family Goals: Patient plans on returning to her home with family support upon rehab discharge. Treatment Plan Speech Therapy Treatment Plan: Discontinue ST Treatment Duration: Feb 28, 2020 Frequency: 1 time per week Estimated Hrs Per Day: .25 hour per day Rehab Potential: Good Barriers to Learning: None identified Pt/Family Agrees to Plan: Yes Safety Risks/Education Teaching Recipient: Patient Teaching Methods: Discussion Response to Teaching: Verbalize Understanding Education Topics Provided: Safety within her room and communication of wants/needs Time Speech Therapy Time In: 14:45 Speech Therapy Time Out: 15:00 Total Billed Time: 15 Billed Treatment Time 1, SPSNDCOMPIOTR Berry Feb 28, 2020 15:27
--- NOTE | 2020-02-28 15:34 | NUR ---
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 Patient presented to [facility] 01/20/20, diagnosed with colitis. Patient was CODE BLUE 01/20 and reportedly pulseless for approximately 2 minutes, chest compressions performed. Surgery for subtotal colectomy and ileostomy was completed with post op complications, a-fib with RVR, cardioversion secondary to hemodynamic instability, C. difficile colitis. TPN for nutrition supplement, discontinued. Patient resides home alone and her hope is to return there at discharge. PCP: Khoa Corbett, [facility] [phone] PHARMACY: Not confirmed INSURANCE: Medicare and [employer] DME: Patient has 2 FWW, Rollator, and her shower has a built in seat. BARRIERS TO DISCHARGE PLANNING: Patient appears adequately insured for post hospital care needs. She has a new ostomy, will pursue supplies through [employer]. Patient has 3 children in close proximity. Patient motivated to regain health and strength and return home. CONTACTS: Patient has 3 children and also listed her sister. Senait Mario, Daughter, DPOA [id number] [place], [place] [phone] Matheus Garcia, Son [address], [place] [address] [phone] Lisa Bailey, Daughter [address] [place] [address] Tessy Blandon, Sister [address] [place], [place] [phone] Patient understands the purpose and process of the weekly patient care conference and that her first review will be Wednesday, March 04, 2020.
[2020-02-28] MEDS: inSUlin ASPART (NovoLOG) 1 UNIT/0.01 ML (CHARGE PER UNIT) SC SCH ×2 (16:10→21:46)
[2020-02-28 17:43] VITALS: BP 123/65
[2020-02-28] MEDS: AMIODARONE 200 MG (CORDARONE) TAB PO SCH (21:15)
[2020-02-28] MEDS: CARVEDILOL 12.5 MG (COREG) TABLET PO SCH (21:15)
[2020-02-29 05:53] VITALS: BP 125/59
[2020-02-29] MEDS: ENOXAPARIN 40 MG/0.4 ML (LOVENOX) SYR SC SCH (06:25)
[2020-02-29] MEDS: MULTIVIT W/MINERALS TAB (THERAGRAN M) PO SCH (06:25)
[2020-02-29] MEDS: ASCORBIC ACID (VIT C) 500 MG TABLET PO SCH (06:25)
[2020-02-29] MEDS: inSUlin ASPART (NovoLOG) 1 UNIT/0.01 ML (CHARGE PER UNIT) SC SCH ×4 (06:46→21:41)
[2020-02-29 06:51] LABS: BASOPHILS # (AUTO) 0.1 10^3/uL (0.0-0.1); BASOPHILS % (AUTO) 1 % (0-10); EOSINOPHILS # (AUTO) 0.7 10^3/uL (0.0-0.3); EOSINOPHILS % (AUTO) 6 % (0-10); HEMATOCRIT 32 % (35-52); HEMOGLOBIN 10.3 g/dL (11.5-16.0); LYMPHOCYTES # (AUTO) 1.7 10^3/uL (1.0-4.0); LYMPHOCYTES % (AUTO) 15 % (12-44); MEAN CORPUSCULAR HEMOGLOBIN 30 pg (25-34); MEAN CORPUSCULAR HGB CONC 32 g/dL (32-36); MEAN CORPUSCULAR VOLUME 94 fL (80-99); MEAN PLATELET VOLUME 9.5 fL (9.0-12.2); MONOCYTES # (AUTO) 0.7 10^3/uL (0.0-1.0); MONOCYTES % (AUTO) 6 % (0-12); NEUTROPHILS # (AUTO) 7.9 10^3/uL (1.8-7.8); NEUTROPHILS % (AUTO) 71 % (42-75); PLATELET COUNT 309 10^3/uL (130-400); WHITE BLOOD COUNT 11.1 10^3/uL (4.3-11.0)
[2020-02-29 07:11] LABS: ALBUMIN 3.7 GM/DL (3.2-4.5)
[2020-02-29 07:12] LABS: POTASSIUM 4.7 MMOL/L (3.6-5.0)
[2020-02-29 07:13] LABS: CALCIUM 9.5 MG/DL (8.5-10.1)
[2020-02-29 07:14] LABS: TOTAL PROTEIN 6.7 GM/DL (6.4-8.2)
[2020-02-29 07:16] LABS: BILIRUBIN,TOTAL 0.3 MG/DL (0.1-1.0)
[2020-02-29 07:18] LABS: CREATININE SERUM 1.17 MG/DL (0.60-1.30)
[2020-02-29 09:17] VITALS: BP 137/67
[2020-02-29] MEDS: SIMETHICONE 80 MG (MYLICON) CHEW PO SCH ×3 (09:19→21:31)
[2020-02-29] MEDS: DOCUSATE SODIUM 100 MG (COLACE) CAP PO SCH ×2 (09:19→20:02)
[2020-02-29] MEDS: SENNA W/DOCUSATE (SENOKOT S) TABLET PO SCH ×2 (09:20→20:04)
[2020-02-29] MEDS: polyethylene glycoL POWDER 17 GM (MIRALAX) PACK PO SCH ×2 (09:20→20:02)
[2020-02-29] MEDS: ASPIRIN 81 MG CHEW (CHILDREN'S ASA) PO SCH (09:20)
[2020-02-29] MEDS: amLODIPine 10 MG (NORVASC) TAB PO SCH (09:20)
[2020-02-29] MEDS: LORATADINE (CLARITIN) 10 MG TAB PO SCH (09:20)
[2020-02-29] MEDS: AMIODARONE 200 MG (CORDARONE) TAB PO SCH ×2 (09:20→21:31)
[2020-02-29] MEDS: CARVEDILOL 12.5 MG (COREG) TABLET PO SCH ×2 (09:20→21:30)
--- NOTE | 2020-02-29 10:24 | Physical Therapy Daily Note ---
PT Daily Note-Current Subjective Pt in bed upon arrival; agrees to PT tx. Pt refuses to sit up in chair d/t not wanting to sit up too long waiting for lunch. Pain Numeric Pain Scale: 0-No Pain Location: No Pain Reported Mental Status Patient Orientation: Person, Place, Time, Situation Attachments: Colostomy/Ileostomy Transfers SCALE: Activities may be completed with or without assistive devices. 8-Odvudcahej-qrhytka completes the activity by him/herself with no assistance from a helper. 5-Set-up or Clean-up Assistance-helper sets up or cleans up; patient completes a ctivity. [place] assists only prior to or following the activity. 4-Supervision or Touching Assistance-helper provides verbal cues and/or touching/steadying and/or contact guard assistance as patient completes activity. Assistance may be provided throughout the activity or intermittently. 3-Partial/Moderate Assistance-helper does LESS THAN HALF the effort. [place] lifts, holds or supports trunk or limbs, but provides less than half the effort. 2-Substantial/Maximal Assistance-helper does MORE THAN HALF the effort. [place] lifts or holds trunk or limbs and provides more than half the effort. 5-Sekowgwux-mhsnnj does ALL the effort. Patient does none of the effort to complete the activity. Or, the assistance of 2 or more helpers is required for the patient to complete the activity. If activity was not attempted, code reason: 7-Patient Refused. 9-Not Applicable-not attempted and the patient did not perform the activity before the current illness, exacerbation or injury. 10-Not Attempted due to Environmental Limitations-(lack of equipment, weather restraints, etc.). 88-Not Attempted due to Medical Conditions or Safety Concerns. Roll Left & Right (QC): 6 Sit to Lying (QC): 6 Lying to Sitting/Side of Bed(Q: 6 Sit to Stand (QC): 6 Toilet Transfer (QC): 6 Weight Bearing Right Lower Extremity: Right Full Weight Bearing Left Lower Extremity: Left Full Weight Bearing Gait Training Does the Patient Walk?: Yes Distance: 10' Walk 10 feet (QC): 4 Gait Assistive Device: FWW Exercises Supine Ex: Ankle pumps, Quad Set, Glut sets, Heel Slides, Short Arc Quads, Straight leg raise, Hip abd/add Supine Reps: 15 (x2) Treatments Supine ex completed. Pt requests to use the bathroom and empty colostomy bag. Pt in bed w/ call light and bedside table w/in reach and all needs met at end of tx. Assessment Current Status: Good Progress Pt completes all ex w/out issue. PT Short Term Goals Short Term Goals Time Frame: Mar 06, 2020 Roll Left & Right: 6 Sit to lyin Lying to sitting on side of be: 6 Sit to stand: 6 Chair/cfj-lh-tbmnu transfer: 5 4 steps: 4 Picking up objects: 4 PT Electronics Technician Apprentice Goals Electronics Technician Apprentice Goals PT Senior Care Goals Time Frame: Mar 13, 2020 Roll Left & Right (QC): 6 Sit to Lying (QC): 6 Lying-Sitting on Side/Bed(QC): 6 Sit to Stand (QC): 6 Chair/Uwi-ok-Hnnku Xfer(QC): 6 Toilet Transfer (QC): 6 Car Transfer (QC): 6 Does the Patient Walk: Yes Walk 10 feet (QC): 6 Walk 50ft with 2 Turns (QC): 6 Walk 150 ft (QC): 6 Walking 10ft on Uneven Surface: 6 1 Step (curb) (QC): 6 4 Steps (QC): 6 12 Steps (QC): 6 Picking up an Object (QC): 6 Does the Pt use WC or Scooter?: No Wheel 50 feet with 2 turns (QC: 9 Wheel 150 feet: 9 PT Plan Problem List Problem List: Activity Tolerance, Functional Strength, Safety, Gait, Transfer, Bed Mobility, ROM Treatment/Plan Treatment Plan: Continue Plan of Care Treatment Plan: Bed Mobility, Education, Functional Activity Maikel, Functional Strength, Group Therapy, Gait, Safety, Therapeutic Exercise, Transfers Treatment Duration: Mar 13, 2020 Frequency: At least 5 of 7 days/Wk (IRF) Estimated Hrs Per Day: 1.5 hours per day Patient and/or Family Agrees t: Yes Safety Risks/Education Patient Education: Safety Issues Teaching Recipient: Patient Teaching Methods: Discussion Response to Teaching: Verbalize Understanding Time/GCodes Time In: 0951 Time Out: 1014 Total Billed Treatment Time: 23 Total Billed Treatment 1, FAx1 (8m), EX x1 (15) KOFI BRAVO BOARD MILL SUPERVISOR Feb 29, 2020 10:24
[2020-02-29] MEDS: GENTAMICIN SULFATE TP SCH (11:00)
--- NOTE | 2020-02-29 11:25 | PM&R Progress Note ---
Subjective HPI/CC On Admission Date Seen by Provider: Feb 29, 2020 Time Seen by Provider: 11:30 Subjective/Events-last exam Patient doing well C diff negative and will recheck tomorrow then DC isolation BM today Dr Jasso consulted for wound care of abdomen WBC 11 Dr Gaviria consulted for AF and OAC question Checked meds and labs Conferred with RN Reviewed therapy notes Review of Systems General: Fatigue Objective Exam Vital Signs Vital Signs Date Time Temp Pulse Resp B/P (MAP) Pulse Ox O2 Delivery O2 Flow Rate FiO2 03/01/20 05:12 36.4 57 18 139/70 (93) 99 Room Air 02/28/20 11:56 96.00 Capillary Refill : Less Than 3 Seconds General Appearance: No Apparent Distress, WD/WN, Chronically ill HEENT: PERRL/EOMI, Normal ENT Inspection, Pharynx Normal Neck: Full Range of Motion, Normal Inspection, Non Tender, Supple, Carotid Bruit Respiratory: Chest Non Tender, Lungs Clear, Normal Breath Sounds, No Accessory Muscle Use, No Respiratory Distress Cardiovascular: Regular Rate, Rhythm, No Edema, No Gallop, No JVD, No Murmur, Normal Peripheral Pulses Gastrointestinal: Normal Bowel Sounds, No Organomegaly, No Pulsatile Mass, Non Tender, Soft Back: Normal Inspection, No CVA Tenderness, No Vertebral Tenderness Extremity: Normal Capillary Refill, Normal Inspection, Normal Range of Motion, Non Tender, No Calf Tenderness, No Pedal Edema Neurologic/Psychiatric: Alert, Oriented x3, No Motor/Sensory Deficits, 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, Abnormal Gait, Motor Weakness (generalized) Skin: Normal Color, Warm/Dry Lymphatic: No Adenopathy Results/Procedures Lab Laboratory Tests 02/29/20 06:43 Patient resulted labs reviewed. FIM Transfers Therapy Code Descriptions/Definitions Functional [place] Measure: 0=Not Assessed/NA 4=Minimal Assistance 1=Total Assistance 5=Supervision or Setup 2=Maximal Assistance 6=Modified [place] 3=Moderate Assistance 7=Complete IndependenceSCALE: Activities may be completed with or without assistive devices. 2-Efwwrxorkg-zusyhkf completes the activity by him/herself with no assistance from a helper. 5-Set-up or Clean-up Assistance-helper sets up or cleans up; patient completes activity. [place] assists only prior to or following the activity. 4-Supervision or Touching Assistance-helper provides verbal cues and/or touching/steadying and/or contact guard assistance as patient completes activity. Assistance may be provided throughout the activity or intermittently. 3-Partial/Moderate Assistance-helper does LESS THAN HALF the effort. [place] lifts, holds or supports trunk or limbs, but provides less than half the effort. 2-Substantial/Maximal Assistance-helper does MORE THAN HALF the effort. [place] lifts or holds trunk or limbs and provides more than half the effort. 4-Vwrgjfozn-hrgxds does ALL the effort. Patient does none of the effort to compl ete the activity. Or, the assistance of 2 or more helpers is required for the patient to complete the activity. If activity was not attempted, code reason: 7-Patient Refused. 9-Not Applicable-not attempted and the patient did not perform the activity before the current illness, exacerbation or injury. 10-Not Attempted due to Environmental Limitations-(lack of equipment, weather restraints, etc.). 88-Not Attempted due to Medical Conditions or Safety Concerns. Roll Left to Right (QC): 6 Sit to Lying (QC): 6 Sit to Stand (QC): 6 Chair/Rqw-vz-Ijqbf Xfer(QC): 4 Car Transfer (QC): 4 Gait Training Does the Patient Walk?: Yes Distance: 10' Walk 10 feet (QC): 4 Walk 50 ft with 2 Turns(QC): 4 Walk 150 ft (QC): 4 Walking 10ft/uneven surface-QC: 4 Gait Persons Needed: 1 Gait Assistive Device: FWW Wheelchair Training Does the Pt Use a Wheelchair?: No Wheel 50 ft with 2 turns (QC): 9 Wheel 150 ft (QC): 9 Stair Training #of Steps: 1 1 Step (curb) (QC): 4 4 Steps (QC): 88 12 Steps (QC): 88 Balance Picking up an Object (QC): 88 ADL-Treatment Eating (QC): 6 (drinks with IND. per clinical judgment pt is IND with eating tasks.) Oral Hygiene (QC): 6 (IND per clinical judgement) Shower/Bathe Self (QC): 4 (CGA and cues for shower chair transfer. Pt able to reach all areas. SBA during showering/ CGA in stance. ) Upper Body Dressing (QC): 5 (s/u, denies bra donning. ) Lower Body Dressing (QC): 4 (threads BLE in sit witout AE, stands with CGA and hikes over hips.) On/Off Footwear (QC): 3 (min A doffing knee high socks, pt completes sock don chilo with IND.) Toileting Hygiene (QC): 4 (CGA in stance for bottom hygiene.) Assessment/Plan Assessment and Plan Assess & Plan/Chief Complaint Assessment: Myopathy AF w/RVR s/p cardioversion Hypothyroidism C diff colitis hx Ovarian cancer hx DM HTN Solitary kidney Plan: Home meds IRF protocol Insulin Monitor stools 02/29/20: Monitor loose stools OAC question? Dr Gaviria consult (1) Myopathy (2) C. 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
--- NOTE | 2020-02-29 11:25 | Individualized Plan of Care ---
Individualized Plan of Care Rehab Nursing IPOC Order Admission Date Feb 28, 2020 at 10:40 Current Orders Orders Admission Order(Inpt,Obs,Sdc) (02/28/20 06:40) Vital Signs: Per Unit Policy ( 08,16,00 (02/28/20 06:40) Aj Martins 09,21 (02/28/20 06:40) Sequential Compression Device Q4H (02/28/20 06:40) Screwhead Polisher-Inpt Rehab Con (02/28/20 06:40) Rehab Nursing Orders-Ipoc (02/28/20 06:40) Physical Therapy Rehab Orders (02/28/20 06:40) Occupational Therapy Rehab Ord (02/28/20 06:40) Speech Therapy Rehab Orders (02/28/20 06:40) Cbc With Automated Diff (02/29/20 06:00) Comprehensive Metabolic Panel (02/29/20 06:00) General/Regular (02/28/20 Breakfast) Intake & Output 06,14,22 (02/28/20 06:40) Precautions (Aru) (02/28/20 06:40) Rehab-Intensity Of Therapy (02/28/20 06:40) Alprazolam Tablet (Xanax Tablet) (02/28/20 06:45) Calcium Carbonate Chew Tablet (Antacid C (02/28/20 06:45) Diphenhydramine Tablet (Benadryl Tablet) (02/28/20 06:45) Docusate Sodium Capsule (Colace Capsule) (02/28/20 09:00) Docusate Sodium Capsule (Colace Capsule) (02/28/20 06:45) Bisacodyl Suppository (Dulcolax Supposit (02/28/20 06:45) Lactulose Oral Solution (Enulose Oral So (02/28/20 06:45) Na Phos/Na Biphos Enema (Fleet Enema Pan (02/28/20 06:45) Guaifenesin/Codeine Syrup (Robitussin Ac (02/28/20 06:45) Loperamide Tablet (Imodium Tablet) (02/28/20 06:45) Enoxaparin Injection (Lovenox Injection) (02/28/20 06:45) Melatonin Tablet (Melatonin Tablet) (02/28/20 06:45) Polyethylene Glycol Powder Pkt (Miralax (02/28/20 09:00) Ondansetron Oral Dissolve Tab (Zofran (02/28/20 06:45) Senna S Tablet (Senokot S Tablet) (02/28/20 09:00) Initiate Admission Nursing Pro .admission (02/28/20 06:40) Cho 60g/M 3snack (16-2000 Solitario) (02/28/20 Lunch) Admission Arrival Bed Request (02/28/20 10:40) C Difficile Ag + Toxin A/B. (02/28/20 10:47) Isolation Central Supply Req (02/28/20 10:47) Amiodarone Tablet (Cordarone Tablet) (02/28/20 21:00) Amlodipine Tablet (Norvasc Tablet) (02/29/20 09:00) Aspirin Chewable Tablet (Baby Aspirin Ch (02/29/20 09:00) Hydrocodone/Apap 5/325 Tablet (Lortab 5 (02/28/20 12:15) Simethicone Tablet (Mylicon Chewable Tab (02/28/20 13:00) Ascorbic Acid Tablet (Vitamin C Tablet) (02/29/20 07:00) Carvedilol Tablet (Coreg Tablet) (02/28/20 21:00) Loratadine Tablet (Claritin Tablet) (02/29/20 09:00) (Nf) Gentamicin Sulfate (02/28/20 12:15) (Nf) Gentamicin Sulfate (02/29/20 09:00) Insulin Determir (Per Unit) (Levemir (Pe (02/28/20 21:00) Therapeutic Multivitamin Tab (Vitamins, (02/29/20 07:00) Insulin Aspart (Novolog) (Novolog (Charg (02/28/20 16:00) Accucheck Achs ACHS (02/28/20 12:17) Tramadol Tablet (Ultram Tablet) (02/28/20 12:23) Tramadol Tablet (Ultram Tablet) (02/28/20 12:26) Consult Cardiology (02/28/20 12:36) Acetaminophen Tablet/Caplet (Tylenol T (02/28/20 12:45) Tramadol Tablet (Ultram Tablet) (02/28/20 12:45) Ambulate 08,12,20 (02/28/20 12:47) Sequential Compression Device Q4H (02/28/20 12:47) Dvt/Vte Risk - Notifiy Physici Q4H (02/28/20 12:47) Consult Wound Care Physician (02/28/20 13:34) Ostomy Care (02/28/20 13:49) Patient Visit (02/28/20 ) Pt Eval Low Complexity (02/28/20 ) Functional Activities, Ea 15 (02/28/20 ) Gait Training, Ea 15 Min (02/28/20 ) Exercise Therap, Ea 15 Min (02/28/20 ) Patient Visit (02/28/20 ) Speech Sound Lang Comp (02/28/20 ) Patient Visit (02/29/20 ) Functional Activities, Ea 15 (02/29/20 ) Exercise Therap, Ea 15 Min (02/29/20 ) Ekg Tracing (02/29/20 11:53) Telemetry (02/29/20 11:53) Telemetry Nursing Assessment ( (02/29/20 11:53) Dressing Order (Intervention) BID (02/29/20 17:32) Rehab Nursing Orders: Ongoing Assess. of Function Status, Bowel Management, Disease Management & Educaiton, DVT Prophylaxis, Fall Prevention, Fluid/Electrolyte/Nutrition Mgmt, Infection Prevention, Medication Management & Education, Management of Risks & Complications, Management of Skin Intergrity, Nutrition Management, Pain Management, Patient/Family Support, Safety Management, Wound Management Intensity of Therapy to be met Patient to be seen: Min.3h per day/5 of 7d PT IPOC Problem List: Activity Tolerance, Functional Strength, Safety, Gait, Transfer, Bed Mobility, ROM Treatment Plan: Continue Plan of Care Bed Mobility, Education, Functional Activity Maikel, Functional Strength, Group Therapy, Gait, Safety, Therapeutic Exercise, Transfers Treatment Duration: Mar 13, 2020 Frequency: At least 5 of 7 days/Wk (IRF) Estimated Hrs Per Day: 1.5 hours per day OT IPOC Problems: Decreased Activ Tolerance, Impaired Funct Balance, Impaired I ADL's, Impaired Self-Care Skills OT Treatment, Training and Edu: Yes Plan of Care: ADL Retraining, Functional Mobility, Group Exercise/Act as Ind, UE Funct Exercise/Act, UE Neuromus Re-Ed/Coord Treatment Duration: Mar 13, 2020 Frequency: At least 5 of 7 days/Wk (IRF) Estimated Hrs Per Day: 1.[address] IPOC Speech Therapy Treatment Plan: Discontinue ST Treatment Duration: Feb 28, 2020 Frequency: 1 time per week Estimated Hrs Per Day: .25 hour per day Screwhead Polisher/Case Mgmt Screwhead Polisher/Case Managemen: Discharge Planning Dietitian/Pecan Mallow Dipper Dietitian/Pecan Mallow Dipper to monitor nutritional status and make changes and/or recommendations as needed and work with speech pathology on dietary upgrades as the occur. Physician IPOC Medical Issues being managed closely and that require the 24 hour availability of a physician: Recent severe medical issues requiring emergent colon resection now with AF and increased risk of decompensation Medical Issues: Bowel/Bladder Function, DVT Prophylaxis, Falls Precautions, Infection Protection, Pain Management Brief Synthesis of Preadmission Screen, Post-Admission Evaluation, and Therapy Evaluations: PT OT will focus on regaining function in order to handle all ADL's to go home and increase stamina Medical Prognosis: Good Anticipated Length of Stay: 7 days LORENZO MIMS DO Feb 29, 2020 11:25
--- NOTE | 2020-02-29 14:03 | Wound Care Assessment ---
Wound Care Assessment Date Seen by Provider: Feb 29, 2020 Time Seen by Provider: 13:40 Chief Complaint Midline abdominal wound. HPI The patient is a 75 year old female with large open midline wound s/p exploratory laparotomy for peritonitis due to Clostridium difficile colitis. The wound base is clean, with some hypergranulation. Will observe on saline dressings. may benefit from Wound VAC. Will follow. Past Medical History: Admits Diabetes Type II, Admits Heart Disease (Atrail fibrillation, disuse myopathy.) Smoking Status: Former Smoker Recreational Drug Use: No Alcohol Use: Denies Use Review of Systems Pulmonary: No Dyspnea Cardiovascular: No: Chest Pain Exam Vital Signs Date Time Temp Pulse Resp B/P (MAP) Pulse Ox O2 Delivery O2 Flow Rate FiO2 02/29/20 12:48 58 02/29/20 09:17 137/67 (90) 98 Room Air 02/29/20 05:53 36.4 18 02/28/20 11:56 96.00 Capillary Refill : Less Than 3 Seconds General Appearance: no apparent distress Cardiovascular: regular rate, rhythm Respiratory: normal breath sounds Gastrointestinal: other (Midline abdominal wound -- 16.0 x 2.0 x 1.5 cm, base 100% granulating with hypergranulation.) Results Laboratory Tests 02/28/20 15:46: Glucometer 146H 02/28/20 21:12: Glucometer 147H 02/29/20 06:25: Glucometer 120H 02/29/20 06:43: White Blood Count 11.1H, Red Blood Count 3.43L, Hemoglobin 10.3L, Hematocrit 32L , Mean Corpuscular Volume 94, Mean Corpuscular Hemoglobin 30, Mean Corpuscular Hemoglobin Concent 32, Red Cell Distribution Width 17.8H, Platelet Count 309, Mean Platelet Volume 9.5, Immature Granulocyte % (Auto) 1, Neutrophils (%) (Auto) 71, Lymphocytes (%) (Auto) 15, Monocytes (%) (Auto) 6, Eosinophils (%) (Auto) 6, Basophils (%) (Auto) 1, Neutrophils # (Auto) 7.9H, Lymphocytes # (Auto ) 1.7, Monocytes # (Auto) 0.7, Eosinophils # (Auto) 0.7H, Basophils # (Auto) 0.1, Immature Granulocyte # (Auto) 0.1, Sodium Level 135, Potassium Level 4.7, Chloride Level 106, Carbon Dioxide Level 18L, Anion Gap 11, Blood Urea Nitrogen 30H, Creatinine 1.17, Estimat Glomerular Filtration Rate 45, BUN/Creatinine Ratio 26, Glucose Level 107H, Calcium Level 9.5, Corrected Calcium 9.7, Total Bilirubin 0.3, Aspartate Amino Transf (AST/SGOT) 20, Alanine Aminotransferase (ALT/SGPT) 30, Alkaline Phosphatase 110, Total Protein 6.7, Albumin 3.7 02/29/20 12:01: Glucometer 93 Microbiology 02/28/20 C. difficile GDH Antigen & Toxins - Final, Complete Microbiology 02/28/20 C. difficile [facility] Antigen & Toxins - Final, Complete Assessment/Plan/Dx 1. Midline abdominal wound, s/p exploratory laparotomy for peritonitis. 2. Diabetes mellitus. 3. Atrial fibrillation. 4. Disuse myopathy. Plan: Continue saline dressings, may benefit from wound VAC. KIMBERLY BAUTISTA MD Feb 29, 2020 14:03
[2020-02-29 18:13] VITALS: BP 155/68
--- NOTE | 2020-03-01 01:00 | NUR ---
Fall Daylight Savings Time. Clocks turned back one hour.
[2020-03-01 05:12] VITALS: BP 139/70
[2020-03-01] MEDS: ENOXAPARIN 40 MG/0.4 ML (LOVENOX) SYR SC SCH (06:16)
[2020-03-01] MEDS: MULTIVIT W/MINERALS TAB (THERAGRAN M) PO SCH (06:16)
[2020-03-01] MEDS: ASCORBIC ACID (VIT C) 500 MG TABLET PO SCH (06:16)
[2020-03-01] MEDS: inSUlin ASPART (NovoLOG) 1 UNIT/0.01 ML (CHARGE PER UNIT) SC SCH ×4 (06:16→21:21)
[2020-03-01] MEDS: polyethylene glycoL POWDER 17 GM (MIRALAX) PACK PO SCH ×2 (09:18→21:15)
[2020-03-01] MEDS: SENNA W/DOCUSATE (SENOKOT S) TABLET PO SCH ×2 (09:18→21:15)
[2020-03-01] MEDS: DOCUSATE SODIUM 100 MG (COLACE) CAP PO SCH ×2 (09:19→21:15)
--- NOTE | 2020-03-01 09:19 | Consultation-Cardiology ---
HPI-Cardiology Cardiology Consultation Date of Consultation 03/01/20 Date of Admission Time Seen by Provider: 09:16 Indication: transient atrial fibrillation HPI 75-year-old lady with history of C. difficile colitis, had colectomy and ileostomy. Had prolonged hospital stay at [facility] and a landmark. Transferred for rehabilitation. During her hospital stay she was noted to have unstable atrial fibrillation underwent electrical cardioversion. Did not receive oral anticoagulation. Was transferred here and I was called for evaluation and management. She is laying down in bed comfortably, denied any previous cardiac history. Home Medications & Allergies Allergies: Coded Allergies: Penicillins (Verified Allergy, Unknown, 02/28/20) raspberry (Verified Allergy, Unknown, 02/28/20) Home Medication List Reviewed: Yes ERX-Fspmoo-Lbdxez Hx Patient Social History Marital Status: Employed/Student: retired Alcohol Use: Denies Use Recreational Drug Use: No Smoking Status: Former Smoker Type Used: Cigarettes Recent Foreign Travel: No Recent Infectious Disease Expo: No Physical Abuse Screen: No Sexual Abuse: No Immunizations Up To Date Date of Pneumonia Vaccine: Feb 06, 2020 Date of Influenza Vaccine: Feb 05, 2020 Past Medical History Discussed below Family Medical History Family History: Arthritis 19 MOTHER Cardiovascular disease 19 MOTHER Diabetes mellitus 19 FATHER 19 MOTHER Review of Systems-General Review of Systems Constitutional: see HPI, malaise, weakness EENTM: no symptoms reported Respiratory: no symptoms reported, see HPI; No cough, No dyspnea on exertion, No hemoptysis, No orthopnea, No phlegm, No short of breath, No stridor, No wheezing, No other Cardiovascular: no symptoms reported, see HPI; No chest pain, No edema, No Hx of Intervention, No palpitations, No syncope, No vascular heart diseas, No other Gastrointestinal: abdominal pain, diarrhea Genitourinary: no symptoms reported, see HPI Musculoskeletal: no symptoms reported, see HPI Skin: no symptoms reported, see HPI Psychiatric/Neurological: No Symptoms Reported, See HPI Reviewed Test Results Reviewed Test Results Lab Laboratory Tests Test 02/29/20 12:01 02/29/20 15:53 02/29/20 21:23 03/01/20 06:15 Range/Units Glucometer 93 179 H 131 H 117 H 70-110 MG/DL Physical Exam Physical Exam Vital Signs Vital Signs - First Documented 02/28/20 02/28/20 11:56 12:54 Temp 35.7 Pulse 71 Resp 18 B/P (MAP) 137/72 Pulse Ox 98 O2 Delivery Room Air O2 Flow Rate 96.00 Capillary Refill : Less Than 3 Seconds Height, Weight, BMI Height: '" Weight: lbs. oz. kg; 161.29 BMI Method:Stated General Appearance: No Apparent Distress, WD/WN, Chronically ill Eyes: Bilateral Eye Normal Inspection, Bilateral Eye PERRL HEENT: PERRL/EOMI, Normal ENT Inspection, Pharynx Normal Neck: Full Range of Motion, Normal Inspection, Non Tender, Supple, Carotid Bruit Respiratory: Chest Non Tender, Lungs Clear, Normal Breath Sounds, No Accessory Muscle Use, No Respiratory Distress Cardiovascular: Regular Rate, Rhythm, No Edema, No Gallop, No JVD, No Murmur, Normal Peripheral Pulses Gastrointestinal: Normal Bowel Sounds, No Organomegaly, No Pulsatile Mass, Non Tender, Soft Back: Normal Inspection, No CVA Tenderness, No Vertebral Tenderness Extremity: Normal Capillary Refill, Normal Inspection, Normal Range of Motion, Non Tender, No Calf Tenderness, No Pedal Edema Neurologic/Psychiatric: Alert, Oriented x3, No Motor/Sensory Deficits, 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, Abnormal Gait, Motor Weakness (generalized) Skin: Normal Color, Warm/Dry Lymphatic: No Adenopathy A/P-Cardiology Admission Diagnosis Atrial fibrillation C. difficile colitis Hypertension Hyperlipidemia Assessment/Plan Transient atrial fibrillation during an acute illness required cardioversion due to instability. No other reported or documented history of atrial fibrillation. Not maintained on oral anticoagulation. I will place her on telemetry and mon itor for any other episodes of arrhythmia. EKG showed normal sinus rhythm. C. difficile colitis, history of colectomy and ileostomy. Followed and managed by primary care team Myopathy, receiving physical therapy Hypertension, monitor blood pressure Hyperlipidemia, monitor lipids next Hypothyroidism, continue to monitor Diabetes mellitus, followed and managed by primary care physician History of solitary kidney, history of ovarian cancer Clinical Quality Measures DVT/VTE Risk/Contraindication: Risk Factor Score Per Nursin RFS Level Per Nursing on Admit: 4+=Very High DAVID HANSON MD Mar 01, 2020 9:19 am
[2020-03-01] MEDS: SIMETHICONE 80 MG (MYLICON) CHEW PO SCH ×3 (09:51→21:20)
[2020-03-01] MEDS: ASPIRIN 81 MG CHEW (CHILDREN'S ASA) PO SCH (09:51)
[2020-03-01] MEDS: AMIODARONE 200 MG (CORDARONE) TAB PO SCH ×2 (09:52→21:20)
[2020-03-01] MEDS: LORATADINE (CLARITIN) 10 MG TAB PO SCH (09:52)
[2020-03-01] MEDS: CARVEDILOL 12.5 MG (COREG) TABLET PO SCH ×2 (09:52→21:20)
[2020-03-01] MEDS: amLODIPine 10 MG (NORVASC) TAB PO SCH (09:52)
--- NOTE | 2020-03-01 12:20 | PM&R Progress Note ---
Subjective HPI/CC On Admission Date Seen by Provider: Mar 01, 2020 Time Seen by Provider: 10:30 Subjective/Events-last exam 03/02/20: C diff second specimen sent to lab Pain pill given today and it helped Lovenox maintained No OAC recommended Dr Gaviria appreciated Patient doing well C diff negative and will recheck tomorrow then DC isolation BM today Dr Jasso consulted for wound care of abdomen WBC 11 Dr Gaviria consulted for AF and OAC question Checked meds and labs Conferred with RN Reviewed therapy notes Review of Systems General: Fatigue, Malaise Objective Exam Vital Signs Vital Signs Date Time Temp Pulse Resp B/P (MAP) Pulse Ox O2 Delivery O2 Flow Rate FiO2 03/01/20 19:00 68 03/01/20 17:32 37.0 18 111/58 (75) 98 Room Air 02/28/20 11:56 96.00 Capillary Refill : Less Than 3 Seconds General Appearance: No Apparent Distress, WD/WN, Chronically ill HEENT: PERRL/EOMI, Normal ENT Inspection, Pharynx Normal Neck: Full Range of Motion, Normal Inspection, Non Tender, Supple, Carotid Bruit Respiratory: Chest Non Tender, Lungs Clear, Normal Breath Sounds, No Accessory Muscle Use, No Respiratory Distress Cardiovascular: Regular Rate, Rhythm, No Edema, No Gallop, No JVD, No Murmur, Normal Peripheral Pulses Gastrointestinal: Normal Bowel Sounds, No Organomegaly, No Pulsatile Mass, Non Tender, Soft Back: Normal Inspection, No CVA Tenderness, No Vertebral Tenderness Extremity: Normal Capillary Refill, Normal Inspection, Normal Range of Motion, Non Tender, No Calf Tenderness, No Pedal Edema Neurologic/Psychiatric: Alert, Oriented x3, No Motor/Sensory Deficits, 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, Abnormal Gait, Motor Weakness (generalized) Skin: Normal Color, Warm/Dry Lymphatic: No Adenopathy Results/Procedures Lab Patient resulted labs reviewed. FIM Transfers Therapy Code Descriptions/Definitions Functional [place] Measure: 0=Not Assessed/NA 4=Minimal Assistance 1=Total Assistance 5=Supervision or Setup 2=Maximal Assistance 6=Modified [place] 3=Moderate Assistance 7=Complete IndependenceSCALE: Activities may be completed with or without assistive devices. 8-Pgbfklipco-adlxxpr completes the activity by him/herself with no assistance from a helper. 5-Set-up or Clean-up Assistance-helper sets up or cleans up; patient completes activity. [place] assists only prior to or following the activity. 4-Supervision or Touching Assistance-helper provides verbal cues and/or touching/steadying and/or contact guard assistance as patient completes activi ty. Assistance may be provided throughout the activity or intermittently. 3-Partial/Moderate Assistance-helper does LESS THAN HALF the effort. [place] lifts, holds or supports trunk or limbs, but provides less than half the effort. 2-Substantial/Maximal Assistance-helper does MORE THAN HALF the effort. [place] lifts or holds trunk or limbs and provides more than half the effort. 5-Olatyfrat-xqdvzj does ALL the effort. Patient does none of the effort to complete the activity. Or, the assistance of 2 or more helpers is required for the patient to complete the activity. If activity was not attempted, code reason: 7-Patient Refused. 9-Not Applicable-not attempted and the patient did not perform the activity before the current illness, exacerbation or injury. 10-Not Attempted due to Environmental Limitations-(lack of equipment, weather restraints, etc.). 88-Not Attempted due to Medical Conditions or Safety Concerns. Roll Left to Right (QC): 6 Sit to Lying (QC): 6 Sit to Stand (QC): 6 Chair/Woi-rq-Kqllk Xfer(QC): 4 Car Transfer (QC): 4 Gait Training Does the Patient Walk?: Yes Distance: 10' Walk 10 feet (QC): 4 Walk 50 ft with 2 Turns(QC): 4 Walk 150 ft (QC): 4 Walking 10ft/uneven surface-QC: 4 Gait Persons Needed: 1 Gait Assistive Device: FWW Wheelchair Training Does the Pt Use a Wheelchair?: No Wheel 50 ft with 2 turns (QC): 9 Wheel 150 ft (QC): 9 Stair Training #of Steps: 1 1 Step (curb) (QC): 4 4 Steps (QC): 88 12 Steps (QC): 88 Balance Picking up an Object (QC): 88 ADL-Treatment Eating (QC): 6 (drinks with IND. per clinical judgment pt is IND with eating tasks.) Oral Hygiene (QC): 6 (IND per clinical judgement) Shower/Bathe Self (QC): 4 (CGA and cues for shower chair transfer. Pt able to reach all areas. SBA during showering/ CGA in stance. ) Upper Body Dressing (QC): 5 (s/u, denies bra donning. ) Lower Body Dressing (QC): 4 (threads BLE in sit witout AE, stands with CGA and hikes over hips.) On/Off Footwear (QC): 3 (min A doffing knee high socks, pt completes sock donning with IND.) Toileting Hygiene (QC): 4 (CGA in stance for bottom hygiene.) Assessment/Plan Assessment and Plan Assess & Plan/Chief Complaint Assessment: Myopathy AF w/RVR s/p cardioversion Hypothyroidism C diff colitis hx Ovarian cancer hx DM HTN Solitary kidney Plan: Home meds IRF protocol Insulin Monitor stools 02/29/20: Monitor loose stools OAC question? Dr Gaviria consult 03/01/20: Monitor pain C diff last specimen sent to lab Dr Gaviria appreciated (1) Myopathy (2) C. 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
[2020-03-01 17:32] VITALS: BP 111/58
[2020-03-02 05:53] LABS: BASOPHILS # (AUTO) 0.1 10^3/uL (0.0-0.1); BASOPHILS % (AUTO) 1 % (0-10); EOSINOPHILS # (AUTO) 0.6 10^3/uL (0.0-0.3); EOSINOPHILS % (AUTO) 6 % (0-10); HEMATOCRIT 32 % (35-52); HEMOGLOBIN 10.1 g/dL (11.5-16.0); LYMPHOCYTES # (AUTO) 1.3 10^3/uL (1.0-4.0); LYMPHOCYTES % (AUTO) 13 % (12-44); MEAN CORPUSCULAR HEMOGLOBIN 30 pg (25-34); MEAN CORPUSCULAR HGB CONC 32 g/dL (32-36); MEAN CORPUSCULAR VOLUME 95 fL (80-99); MEAN PLATELET VOLUME 9.8 fL (9.0-12.2); MONOCYTES # (AUTO) 0.7 10^3/uL (0.0-1.0); MONOCYTES % (AUTO) 7 % (0-12); NEUTROPHILS # (AUTO) 7.6 10^3/uL (1.8-7.8); NEUTROPHILS % (AUTO) 73 % (42-75); PLATELET COUNT 332 10^3/uL (130-400); WHITE BLOOD COUNT 10.3 10^3/uL (4.3-11.0)
[2020-03-02] MEDS: inSUlin ASPART (NovoLOG) 1 UNIT/0.01 ML (CHARGE PER UNIT) SC SCH ×4 (06:00→21:20)
[2020-03-02 06:15] VITALS: BP 111/63
[2020-03-02 06:20] LABS: ALBUMIN 3.4 GM/DL (3.2-4.5)
[2020-03-02 06:21] LABS: POTASSIUM 4.6 MMOL/L (3.6-5.0)
[2020-03-02] MEDS: ASCORBIC ACID (VIT C) 500 MG TABLET PO SCH (06:21)
[2020-03-02] MEDS: MULTIVIT W/MINERALS TAB (THERAGRAN M) PO SCH (06:21)
[2020-03-02 06:22] LABS: CALCIUM 9.3 MG/DL (8.5-10.1)
[2020-03-02 06:23] LABS: TOTAL PROTEIN 6.2 GM/DL (6.4-8.2)
[2020-03-02] MEDS: ENOXAPARIN 40 MG/0.4 ML (LOVENOX) SYR SC SCH (06:24)
[2020-03-02 06:25] LABS: BILIRUBIN,TOTAL 0.3 MG/DL (0.1-1.0)
[2020-03-02 06:27] LABS: CREATININE SERUM 1.12 MG/DL (0.60-1.30)
[2020-03-02 08:00] VITALS: BP 112/60
--- NOTE | 2020-03-02 08:32 | PM&R Progress Note ---
Subjective HPI/CC On Admission Date Seen by Provider: Mar 02, 2020 Time Seen by Provider: 10:00 Subjective/Events-last exam 03/02/20: Hgb 10.1 Will discontinue Benadryl and will take Claritin instead Only has one kidney, she is very particular about medications Isolation was discontinued because C-Diff was negative again Bowels are moving through the ileostomy 03/01/20: C diff second specimen sent to lab Pain pill given today and it helped Lovenox maintained No OAC recommended Dr Gaviria appreciated Patient doing well C diff negative and will recheck tomorrow then DC isolation BM today Dr Jasso consulted for wound care of abdomen WBC 11 Dr Gaviria consulted for AF and OAC question Checked meds and labs Conferred with RN Reviewed therapy notes Review of Systems General: Fatigue, Malaise Neurological: Weakness Objective Exam Vital Signs Vital Signs Date Time Temp Pulse Resp B/P (MAP) Pulse Ox O2 Delivery O2 Flow Rate FiO2 03/02/20 19:00 66 03/02/20 17:39 37.0 18 136/63 (87) 98 Room Air 03/01/20 21:15 96.00 Capillary Refill : Less Than 3 Seconds General Appearance: No Apparent Distress, WD/WN, Chronically ill HEENT: PERRL/EOMI, Normal ENT Inspection, Pharynx Normal Neck: Full Range of Motion, Normal Inspection, Non Tender, Supple, Carotid Bruit Respiratory: Chest Non Tender, Lungs Clear, Normal Breath Sounds, No Accessory Muscle Use, No Respiratory Distress Cardiovascular: Regular Rate, Rhythm, No Edema, No Gallop, No JVD, No Murmur, Normal Peripheral Pulses Gastrointestinal: Normal Bowel Sounds, No Organomegaly, No Pulsatile Mass, Non Tender, Soft Back: Normal Inspection, No CVA Tenderness, No Vertebral Tenderness Extremity: Normal Capillary Refill, Normal Inspection, Normal Range of Motion, Non Tender, No Calf Tenderness, No Pedal Edema Neurologic/Psychiatric: Alert, Oriented x3, No Motor/Sensory Deficits, 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, Abnormal Gait, Motor Weakness (generalized) Skin: Normal Color, Warm/Dry Lymphatic: No Adenopathy Results/Procedures Lab Laboratory Tests 03/02/20 05:05 Patient resulted labs reviewed. FIM Transfers Therapy Code Descriptions/Definitions Functional [place] Measure: 0=Not Assessed/NA 4=Minimal Assistance 1=Total Assistance 5=Supervision or Setup 2=Maximal Assistance 6=Modified [place] 3=Moderate Assistance 7=Complete IndependenceSCALE: Activities may be completed with or without assistive devices. 8-Zyzgeniuis-utyennm completes the activity by him/herself with no assistance from a helper. 5-Set-up or Clean-up Assistance-helper sets up or cleans up; patient completes activity. [place] assists only prior to or following the activity. 4-Supervision or Touching Assistance-helper provides verbal cues and/or touching/steadying and/or contact guard assistance as patient completes activity. Assistance may be provided throughout the activity or intermittently. 3-Partial/Moderate Assistance-helper does LESS THAN HALF the effort. [place] lifts, holds or supports trunk or limbs, but provides less than half the effort. 2-Substantial/Maximal Assistance-helper does MORE THAN HALF the effort. [place] lifts or holds trunk or limbs and provides more than half the effort. 1-Riaqnfxhp-lqraan does ALL the effort. Patient does none of the effort to complete the activity. Or, the assistance of 2 or more helpers is required for the patient to complete the activity. If activity was not attempted, code reason: 7-Patient Refused. 9-Not Applicable-not attempted and the patient did not perform the activity before the current illness, exacerbation or injury. 10-Not Attempted due to Environmental Limitations-(lack of equipment, weather restraints, etc.). 88-Not Attempted due to Medical Conditions or Safety Concerns. Roll Left to Right (QC): 6 Sit to Lying (QC): 6 Sit to Stand (QC): 6 Chair/Brw-pp-Dhpnk Xfer(QC): 4 Car Transfer (QC): 4 Gait Training Does the Patient Walk?: Yes Distance: 10' Walk 10 feet (QC): 4 Walk 50 ft with 2 Turns(QC): 4 Walk 150 ft (QC): 4 Walking 10ft/uneven surface-QC: 4 Gait Persons Needed: 1 Gait Assistive Device: FWW Wheelchair Training Does the Pt Use a Wheelchair?: No Wheel 50 ft with 2 turns (QC): 9 Wheel 150 ft (QC): 9 Stair Training #of Steps: 1 1 Step (curb) (QC): 4 4 Steps (QC): 88 12 Steps (QC): 88 Balance Picking up an Object (QC): 88 ADL-Treatment Eating (QC): 6 (drinks with IND. per clinical judgment pt is IND with eating tasks.) Oral Hygiene (QC): 6 (IND per clinical judgement) Shower/Bathe Self (QC): 4 (CGA and cues for shower chair transfer. Pt able to reach all areas. SBA during showering/ CGA in stance. ) Upper Body Dressing (QC): 5 (s/u, denies bra donning. ) Lower Body Dressing (QC): 4 (threads BLE in sit witout AE, stands with CGA and hikes over hips.) On/Off Footwear (QC): 3 (min A doffing knee high socks, pt completes sock donning with IND.) Toileting Hygiene (QC): 4 (CGA in stance for bottom hygiene.) Assessment/Plan Assessment and Plan Assess & Plan/Chief Complaint Assessment: Myopathy AF w/RVR s/p cardioversion Hypothyroidism C diff colitis hx Ovarian cancer hx DM HTN Solitary kidney Plan: Home meds IRF protocol Insulin Monitor stools 02/29/20: Monitor loose stools OAC question? Dr Gaviria consult 03/01/20: Monitor pain C diff last specimen sent to lab Dr Gaviria appreciated 03/02/20: Take out of isolation since C.diff negative Monitor bowel function Pain control (1) Myopathy (2) C. 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
--- NOTE | 2020-03-02 08:41 | Cardiology Progress Note ---
Subjective Date Seen by Provider: Mar 02, 2020 Time Seen by Provider: 08:39 Subjective/Events-last exam Patient is sitting up in bed, denies any chest pain or palpitations. Review of Systems General: No Chills, No Night Sweats, No Fatigue, No Malaise, No Appetite, No Other HEENT: No Head Aches, No Visual Changes, No Eye Pain, No Ear Pain, No Dysphasia, No Sinus Congestion, No Post Nasal Drip, No Sore Throat, No Other Pulmonary: No Dyspnea, No Cough, No Pleuritic Chest Pain, No Other Cardiovascular: No: Chest Pain, Palpitations, Orthopnea, Paroxysmal Noc. Dyspnea, Edema, Lt Headedness, Other Objective-Cardiology Exam Last Set of Vital Signs Vital Signs 03/01/20 03/02/20 03/02/20 21:15 06:15 06:35 Temp 36.6 Pulse 60 Resp 20 B/P (MAP) 111/63 (79) Pulse Ox 98 O2 Delivery Room Air O2 Flow Rate 96.00 Capillary Refill : Less Than 3 Seconds I&O Intake and Output 03/02/20 00:00 Intake Total 1390 ml Output Total 625 ml Balance 765 ml Intake Oral 1390 ml Stool Total 625 ml # Voids 8 General: Alert, Oriented X3, Cooperative HEENT: Atraumatic, PERRLA Neck: Supple, No JVD, No Thyromegaly Lungs: Clear to Auscultation, Normal Air Movement Heart: Regular Rate, Normal S1, Normal S2, No Murmurs Abdomen: Normal Bowel Sounds, Soft, No Tenderness, No Hepatosplenomegaly, No Masses Extremities: No Clubbing, No Cyanosis, No Edema, Normal Pulses, No Tenderness/Swelling Skin: No Rashes, No Breakdown, No Significant Lesion Neuro: Normal Gait, Normal Speech, Strength at 5/5 X4 Ext, Normal Tone, Sensation Intact Psych/Mental Status: Mental Status NL, Mood NL Results Lab Laboratory Tests 03/02/20 05:05 A/P-Cardiology Admission Diagnosis Atrial fibrillation C. difficile colitis Hypertension Hyperlipidemia Assessment/Plan Transient atrial fibrillation during an acute illness required cardioversion due to instability. No other reported or documented history of atrial fibrillation. Not maintained on oral anticoagulation. EKG showed normal sinus rhythm. Telemetry revealing SR. Continue on Amiodarone and continue to monitor. C. difficile colitis, history of colectomy and ileostomy. Followed and managed by primary care team Myopathy, receiving physical therapy Hypertension, controlled, continue to monitor blood pressure Hyperlipidemia, monitor lipids Hypothyroidism, continue to monitor Diabetes mellitus, followed and managed by primary care physician History of solitary kidney, history of ovarian cancer Patient was seen and evaluated with Daisy, examination performed, management plan was discussed, agree with the current scribed note, I made few changes to the note using Italic font Patient was seen at bedside, sitting comfortably, no new complaint Continue to monitor telemetry. No change in medication at this time Clinical Quality Measures DVT/VTE Risk/Contraindication: Risk Factor Score Per Nursin RFS Level Per Nursing on Admit: 4+=Very High DAISY ALCOCER Mar 02, 2020 08:41 DAVID HANSON MD Mar 02, 2020 11:57
[2020-03-02] MEDS: amLODIPine 10 MG (NORVASC) TAB PO SCH (08:49)
[2020-03-02] MEDS: CARVEDILOL 12.5 MG (COREG) TABLET PO SCH ×2 (08:49→21:20)
[2020-03-02] MEDS: SIMETHICONE 80 MG (MYLICON) CHEW PO SCH ×3 (08:49→21:20)
[2020-03-02] MEDS: AMIODARONE 200 MG (CORDARONE) TAB PO SCH ×2 (08:49→21:20)
[2020-03-02] MEDS: LORATADINE (CLARITIN) 10 MG TAB PO SCH (08:49)
[2020-03-02] MEDS: ASPIRIN 81 MG CHEW (CHILDREN'S ASA) PO SCH (08:49)
[2020-03-02] MEDS: polyethylene glycoL POWDER 17 GM (MIRALAX) PACK PO SCH ×2 (09:14→21:20)
[2020-03-02] MEDS: SENNA W/DOCUSATE (SENOKOT S) TABLET PO SCH ×2 (09:14→21:19)
[2020-03-02] MEDS: DOCUSATE SODIUM 100 MG (COLACE) CAP PO SCH ×2 (09:14→21:19)
--- NOTE | 2020-03-02 09:21 | Occupational Ther Daily Note ---
OT Current Status-Daily Note Subjective Pt alert, lying in bed. Pt stated that she was waiting on pain pill, c/o 8/10 pain. Nrsg brought meds and assessed pt. Mental Status/Objective Patient Orientation: Person, Place, Time, Situation Attachments: Colostomy/Ileostomy, IV (midline) ADL-Treatment Pt agrees to shower. Pt able to complete bed mobility independently using bed rails and HOB slightly raised. Sit <--> stand is SBA. Pt able to stand without LOB while abdomen and IV site is covered for shower. Pt was able to don/doff UE/LE clothing. Pt ambulated to bathroom using FWW to perform upper and lower body washing with set up. Pt sit to stand to using grab bars to stabilize, cleanse buttocks and perineal area. Pt requires set up for dressing, used grab bars to stabilize while hiking briefs over hips. Pt ambulated to sink using FWW, sink to stabilize while performing oral care, safety issue due to fatigue. Pt ambulated back to room using FWW, SBA. Pt stated wanting in bed call light/phone in reach. All needs met. Therapy Code Descriptions/Definitions Functional [place] Measure: 0=Not Assessed/NA 4=Minimal Assistance 1=Total Assistance 5=Supervision or Setup 2=Maximal Assistance 6=Modified [place] 3=Moderate Assistance 7=Complete IndependenceSCALE: Activities may be completed with or without assistive devices. 6-Ljwjgatbki-tdxhnfa completes the activity by him/herself with no assistance from a helper. 5-Set-up or Clean-up Assistance-helper sets up or cleans up; patient completes activity. [place] assists only prior to or following the activity. 4-Supervision or Touching Assistance-helper provides verbal cues and/or touching/steadying and/or contact guard assistance as patient completes activity. Assistance may be provided throughout the activity or intermittently. 3-Partial/Moderate Assistance-helper does LESS THAN HALF the effort. [place] lifts, holds or supports trunk or limbs, but provides less than half the effort. 2-Substantial/Maximal Assistance-helper does MORE THAN HALF the effort. [place] lifts or holds trunk or limbs and provides more than half the effort. 7-Ryfytorgf-bjtlcd does ALL the effort. Patient does none of the effort to complete the activity. Or, the assistance of 2 or more helpers is required for the patient to complete the activity. If activity was not attempted, code reason: 7-Patient Refused. 9-Not Applicable-not attempted and the patient did not perform the activity before the current illness, exacerbation or injury. 10-Not Attempted due to Environmental Limitations-(lack of equipment, weather restraints, etc.). 88-Not Attempted due to Medical Conditions or Safety Concerns. Oral Hygiene (QC): 6 Bathing Location: L Arm, R Arm, L Upper Leg, R Upper Leg, L Lower Leg (including foot), R Lower Leg (including foot), Chest, Abdomen, Buttocks, Perineal Area Shower/Bathe Self (QC): 5 Upper Body Dressing (QC): 5 Lower Body Dressing (QC): 5 On/Off Footwear: 5 OT Short Term Goals Short Term Goals Time Frame: Mar 06, 2020 Lower body dressin Putting on/taking off footwear: 6 OT Sheriff'S Officer Goals [facility] Goals Time Frame: Mar 13, 2020 Eating (QC): 6 Oral Hygiene (QC): 6 Toileting Hygiene (QC): 6 Shower/Bathe Self (QC): 6 Upper Body Dressing (QC): 6 Lower Body Dressing (QC): 6 On/Off Footwear (QC): 6 Demonstrate ability to change colonoscopy bag with s/u-IND. Additional Goals: 1-Demonstrate ADL Tasks, 2-Verbalize Understanding, 3-ImproveStrength/Maikel 1=Demonstrate adherence to instructed precautions during ADL tasks. 2=Patient will verbalize/demonstrate understanding of assistive devices/modifications for ADL. 3=Patient will improve strength/tolerance for activity to enable patient to perf orm ADL's. OT Education/Plan Problem List/Assessment Assessment: Decreased Activ Tolerance, Impaired Self-Care Skills Discharge Recommendations Plan/Recommendations: Continue POC Treatment Plan/Plan of Care Patient would benefit from OT for education, treatment and training to promote independence in ADL's, mobility, safety and/or upper extremity function for ADL's. Plan of Care: ADL Retraining, Functional Mobility, Group Exercise/Act as Ind, UE Funct Exercise/Act, UE Neuromus Re-Ed/Coord Treatment Duration: Mar 13, 2020 Frequency: At least 5 of 7 days/Wk (IRF) Estimated Hrs Per Day: 1.5 hours per day Agreement: Yes Rehab Potential: Good Time/GCodes Start Time: 08:30 Stop Time: 09:30 Total Time Billed (hr/min): 60 Billed Treatment Time 1 visit- ADL 3 ( 40 mins), FA (20 mins) ELIZABETH BUTLER Mar 02, 2020 09:21
--- NOTE | 2020-03-02 11:55 | Physical Therapy Daily Note ---
PT Daily Note-Current Subjective Pt. agrees to Rx. States she is surprised at how much stronger she is now. Pain Location: No Pain Reported Appearance foot drop left foot, left great toe flexion, Mental Status Patient Orientation: Normal For Age Attachments: Other-See Comments (telemetry, mask while out of room, ) Transfers SCALE: Activities may be completed with or without assistive devices. 5-Ompjyxccrc-orwdtyf completes the activity by him/herself with no assistance from a helper. 5-Set-up or Clean-up Assistance-helper sets up or cleans up; patient completes activity. [place] assists only prior to or following the activity. 4-Supervision or Touching Assistance-helper provides verbal cues and/or touching/steadying and/or contact guard assistance as patient completes activity. Assistance may be provided throughout the activity or intermittently. 3-Partial/Moderate Assistance-helper does LESS THAN HALF the effort. [place] lifts, holds or supports trunk or limbs, but provides less than half the effort. 2-Substantial/Maximal Assistance-helper does MORE THAN HALF the effort. [place] lifts or holds trunk or limbs and provides more than half the effort. 5-Xinjyltdo-bbhtnf does ALL the effort. Patient does none of the effort to complete the activity. Or, the assistance of 2 or more helpers is required for the patient to complete the activity. If activity was not attempted, code reason: 7-Patient Refused. 9-Not Applicable-not attempted and the patient did not perform the activity before the current illness, exacerbation or injury. 10-Not Attempted due to Environmental Limitations-(lack of equipment, weather restraints, etc.). 88-Not Attempted due to Medical Conditions or Safety Concerns. Roll Left & Right (QC): 6 Sit to Lying (QC): 6 Lying to Sitting/Side of Bed(Q: 6 Sit to Stand (QC): 6 Chair/Hwd-na-Itayd Xfer(QC): 6 Weight Bearing Right Lower Extremity: Right Full Weight Bearing Left Lower Extremity: Left Full Weight Bearing Gait Training Does the Patient Walk?: Yes Walk 10 feet (QC): 4 Walk 50 ft with 2 Turns(QC): 4 Gait Persons Needed: 1 Gait Assistive Device: [id number] CGA no LOB, equal step length good gabbie Exercises Supine Ex: Bridging, Ankle pumps, Quad Set, Rolling, Glut sets, Heel Slides, Short Arc Quads, Scooting (up in supine bed indep), Straight leg raise, Hip abd/add Supine Reps: 15 Seated Therapy Exercises: Ankle pumps, Sit to stand, Long arc quads, Hip flexion, Hip abd/add Seated Reps: 15 NuStep Minutes: 8 NuStep Workload: 1 Treatments pt. fatigued with activity and needed rest breaks, HC stretches L 4 x 20 sec with improved ROM but foot drop noted Assessment Current Status: Good Progress PT Short Term Goals Short Term Goals Time Frame: Mar 06, 2020 Roll Left & Right: 6 Sit to lyin Lying to sitting on side of be: 6 Sit to stand: 6 Chair/huf-vr-ggdak transfer: 5 4 steps: 4 Picking up objects: 4 PT Exhibits Curator Goals Exhibits Curator Goals PT Exhibits Curator Goals Time Frame: Mar 13, 2020 Roll Left & Right (QC): 6 Sit to Lying (QC): 6 Lying-Sitting on Side/Bed(QC): 6 Sit to Stand (QC): 6 Chair/Fhj-is-Ambkp Xfer(QC): 6 Toilet Transfer (QC): 6 Car Transfer (QC): 6 Does the Patient Walk: Yes Walk 10 feet (QC): 6 Walk 50ft with 2 Turns (QC): 6 Walk 150 ft (QC): 6 Walking 10ft on Uneven Surface: 6 1 Step (curb) (QC): 6 4 Steps (QC): 6 12 Steps (QC): 6 Picking up an Object (QC): 6 Does the Pt use WC or Scooter?: No Wheel 50 feet with 2 turns (QC: 9 Wheel 150 feet: 9 PT Plan Treatment/Plan Treatment Plan: Continue Plan of Care Treatment Plan: Bed Mobility, Education, Functional Activity [place], Functional Strength, Group Therapy, Gait, Safety, Therapeutic Exercise, Transfers Treatment Duration: Mar 13, 2020 Frequency: At least 5 of 7 days/Wk (IRF) Estimated Hrs Per Day: 1.5 hours per day Patient and/or Family Agrees t: Yes Safety Risks/Education Patient Education: Gait Training, Transfer Techniques, Correct Positioning, Disease Process, Safety Issues Teaching Recipient: Patient, Significant Other Teaching Methods: Demonstration Response to Teaching: Verbalize Understanding, Return Demonstration, Reinforcement Needed Time/GCodes Time In: 1100 Time Out: 1200 Total Billed Treatment Time: 60 Total Billed Treatment 1,GT25m,EX35m [facility] Mar 02, 2020 11:55
--- NOTE | 2020-03-02 14:24 | Therapy Group Daily Note ---
Therapy Daily Group Note Patient Education Topic Home Safety Exercises LE Seated Exercise, UE Exercise Session Ratio (pt:therapist): 4:1 Goal of Session: Education on ARU Expectations, Home Safety Strategies, UE/LE Strengthing Goal Met for this Session: Yes Pt Benefit of Group: Contributions to Others, F/U Use of Strategies @Home, Increased Functional Safety, Increased Functional Strength, Improved Cognition, Recognition of Peers, Socialization Other/Notes Pt ambulated to therapy gym using FWW for OT/PT group. Group consisted of introductions (name, place living, favorite thanksgiving food), socialization, seated UE/LE exercises, home safety trivia, ARU description and home safety education. Pt introduced self appropriately and activity listened to peers. Pt was able to acknowledge understanding of educational topics by own personal experiences and strategies. Pt tolerated UE/LE seated exercises and completed 1 set of 10 reps each. Pt able to answer one question about home safety during trivia. After session, pt lying in bed with call light/phone in reach. All needs met in room. Start Time: 13:00 Stop Time: 14:10 Total Billed Treatment Time: 70 Total Billed Treatment 1-GRP ELIZABETH BUTLER Mar 02, 2020 14:24
[2020-03-02 17:39] VITALS: BP 136/63
[2020-03-02] MEDS: MELATONIN 3 MG TABLET PO PRN (21:20)
[2020-03-03 05:30] VITALS: BP 103/54
[2020-03-03] MEDS: inSUlin ASPART (NovoLOG) 1 UNIT/0.01 ML (CHARGE PER UNIT) SC SCH ×4 (05:47→21:13)
[2020-03-03] MEDS: ENOXAPARIN 40 MG/0.4 ML (LOVENOX) SYR SC SCH (06:32)
[2020-03-03] MEDS: ASCORBIC ACID (VIT C) 500 MG TABLET PO SCH (06:32)
[2020-03-03] MEDS: MULTIVIT W/MINERALS TAB (THERAGRAN M) PO SCH (06:32)
[2020-03-03 08:00] VITALS: BP 133/64
--- NOTE | 2020-03-03 08:09 | Cardiology Progress Note ---
Subjective Date Seen by Provider: Mar 03, 2020 Time Seen by Provider: 08:09 Subjective/Events-last exam Patient is laying down in bed. No new complaint Review of Systems General: No Chills, No Night Sweats, No Fatigue, No Malaise, No Appetite, No Other HEENT: No Head Aches, No Visual Changes, No Eye Pain, No Ear Pain, No Dysphasia, No Sinus Congestion, No Post Nasal Drip, No Sore Throat, No Other Pulmonary: No Dyspnea, No Cough, No Pleuritic Chest Pain, No Other Cardiovascular: No: Chest Pain, Palpitations, Orthopnea, Paroxysmal Noc. Dyspnea, Edema, Lt Headedness, Other Objective-Cardiology Exam Last Set of Vital Signs Vital Signs 03/01/20 03/03/20 21:15 05:30 Temp 36.4 Pulse 60 Resp 16 B/P (MAP) 103/54 (70) Pulse Ox 97 O2 Delivery Room Air O2 Flow Rate 96.00 Capillary Refill : Less Than 3 Seconds I&O Intake and Output 03/03/20 00:00 Intake Total 1520 ml Output Total 300 ml Balance 1220 ml Intake Oral 1520 ml Stool Total 300 ml # Voids 7 # Bowel Movements 4 General: Alert, Oriented X3, Cooperative HEENT: Atraumatic, PERRLA Neck: Supple, No JVD, No Thyromegaly Lungs: Clear to Auscultation, Normal Air Movement Heart: Regular Rate, Normal S1, Normal S2, No Murmurs Abdomen: Normal Bowel Sounds, Soft, No Tenderness, No Hepatosplenomegaly, No Masses Extremities: No Clubbing, No Cyanosis, No Edema, Normal Pulses, No Tenderness/Swelling Skin: No Rashes, No Breakdown, No Significant Lesion Neuro: Normal Gait, Normal Speech, Strength at 5/5 X4 Ext, Normal Tone, Sensation Intact Psych/Mental Status: Mental Status NL, Mood NL A/P-Cardiology Admission Diagnosis Atrial fibrillation C. difficile colitis Hypertension Hyperlipidemia Assessment/Plan Transient atrial fibrillation during an acute illness required cardioversion due to instability. No other reported or documented history of atrial fibrillation. Not maintained on oral anticoagulation. EKG showed normal sinus rhythm. Telemetry revealing SR. Continue on Amiodarone and continue to monitor. C. difficile colitis, history of colectomy and ileostomy. Followed and managed by primary care team Myopathy, receiving physical therapy Hypertension, controlled, continue to monitor blood pressure Hyperlipidemia, monitor lipids Hypothyroidism, continue to monitor Diabetes mellitus, followed and managed by primary care physician History of solitary kidney, history of ovarian cancer Clinical Quality Measures DVT/VTE Risk/Contraindication: Risk Factor Score Per Nursin RFS Level Per Nursing on Admit: 4+=Very High DAVID HANSON MD Mar 03, 2020 08:09
--- NOTE | 2020-03-03 08:56 | PM&R Progress Note ---
Subjective HPI/CC On Admission Date Seen by Provider: Mar 03, 2020 Time Seen by Provider: 10:00 Subjective/Events-last exam 03/03/20: Pt doing very well Dr. Jasso saw the wound and it is healing well Overall seems to be doing very well DC planned soon 03/02/20: Hgb 10.1 Will discontinue Benadryl and will take Claritin instead Only has one kidney, she is very particular about medications Isolation was discontinued because C-Diff was negative again Bowels are moving through the ileostomy 03/01/20: C diff second specimen sent to lab Pain pill given today and it helped Lovenox maintained No OAC recommended Dr Gaviria appreciated Patient doing well C diff negative and will recheck tomorrow then DC isolation BM today Dr Jasso consulted for wound care of abdomen WBC 11 Dr Gaviria consulted for AF and OAC question Checked meds and labs Conferred with RN Reviewed therapy notes Review of Systems General: Fatigue, Malaise Gastrointestinal: Abdominal Pain Objective Exam Vital Signs Vital Signs Date Time Temp Pulse Resp B/P (MAP) Pulse Ox O2 Delivery O2 Flow Rate FiO2 03/03/20 19:00 70 03/03/20 16:30 37.0 16 120/62 (81) 100 Room Air 03/01/20 21:15 96.00 Capillary Refill : Less Than 3 Seconds General Appearance: No Apparent Distress, WD/WN, Chronically ill HEENT: PERRL/EOMI, Normal ENT Inspection, Pharynx Normal Neck: Full Range of Motion, Normal Inspection, Non Tender, Supple, Carotid Bruit Respiratory: Chest Non Tender, Lungs Clear, Normal Breath Sounds, No Accessory Muscle Use, No Respiratory Distress Cardiovascular: Regular Rate, Rhythm, No Edema, No Gallop, No JVD, No Murmur, Normal Peripheral Pulses Gastrointestinal: Normal Bowel Sounds, No Organomegaly, No Pulsatile Mass, Non Tender, Soft Back: Normal Inspection, No CVA Tenderness, No Vertebral Tenderness Extremity: Normal Capillary Refill, Normal Inspection, Normal Range of Motion, Non Tender, No Calf Tenderness, No Pedal Edema Neurologic/Psychiatric: Alert, Oriented x3, No Motor/Sensory Deficits, 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, Abnormal Gait, Motor Weakness (generalized) Skin: Normal Color, Warm/Dry Lymphatic: No Adenopathy Results/Procedures Lab Patient resulted labs reviewed. FIM Transfers Therapy Code Descriptions/Definitions Functional [place] Measure: 0=Not Assessed/NA 4=Minimal Assistance 1=Total Assistance 5=Supervision or Setup 2=Maximal Assistance 6=Modified [place] 3=Moderate Assistance 7=Complete IndependenceSCALE: Activities may be completed with or without assistive devices. 7-Odskxfbror-kcmhbjj completes the activity by him/herself with no assistance from a helper. 5-Set-up or Clean-up Assistance-helper sets up or cleans up; patient completes activity. [place] assists only prior to or following the activity. 4-Supervision or Touching Assistance-helper provides verbal cues and/or touching/steadying and/or contact guard assistance as patient completes activity. Assistance may be provided throughout the activity or intermittently. 3-Partial/Moderate Assistance-helper does LESS THAN HALF the effort. [place] lifts, holds or supports trunk or limbs, but provides less than half the effort. 2-Substantial/Maximal Assistance-helper does MORE THAN HALF the effort. [place] lifts or holds trunk or limbs and provides more than half the effort. 8-Lpipetkzm-jbablb does ALL the effort. Patient does none of the effort to co mplete the activity. Or, the assistance of 2 or more helpers is required for the patient to complete the activity. If activity was not attempted, code reason: 7-Patient Refused. 9-Not Applicable-not attempted and the patient did not perform the activity before the current illness, exacerbation or injury. 10-Not Attempted due to Environmental Limitations-(lack of equipment, weather restraints, etc.). 88-Not Attempted due to Medical Conditions or Safety Concerns. Roll Left to Right (QC): 6 Sit to Lying (QC): 6 Sit to Stand (QC): 6 Chair/[place]az-ai-Cyjtx Xfer(QC): 6 Car Transfer (QC): 4 Gait Training Does the Patient Walk?: Yes Distance: 10' Walk 10 feet (QC): 4 Walk 50 ft with 2 Turns(QC): 4 Walk 150 ft (QC): 4 Walking 10ft/uneven surface-QC: 4 Gait Persons Needed: 1 Gait Assistive Device: FWW Wheelchair Training Does the Pt Use a Wheelchair?: No Wheel 50 ft with 2 turns (QC): 9 Wheel 150 ft (QC): 9 Stair Training #of Steps: 1 1 Step (curb) (QC): 4 4 Steps (QC): 88 12 Steps (QC): 88 Balance Picking up an Object (QC): 88 ADL-Treatment Eating (QC): 6 (drinks with IND. per clinical judgment pt is IND with eating tasks.) Oral Hygiene (QC): 6 Bathing Location: L Arm, R Arm, L Upper Leg, R Upper Leg, L Lower Leg (including foot), R Lower Leg (including foot), Chest, Abdomen, Buttocks, Perineal Area Shower/Bathe Self (QC): 5 Upper Body Dressing (QC): 5 Lower Body Dressing (QC): 5 On/Off Footwear (QC): 5 Toileting Hygiene (QC): 4 (CGA in stance for bottom hygiene.) Assessment/Plan Assessment and Plan Assess & Plan/Chief Complaint Assessment: Myopathy AF w/RVR s/p cardioversion Hypothyroidism C diff colitis hx Ovarian cancer hx DM HTN Solitary kidney Plan: Home meds IRF protocol Insulin Monitor stools 02/29/20: Monitor loose stools OAC question? Dr Gaviria consult 03/01/20: Monitor pain C diff last specimen sent to lab Dr Gaviria appreciated 03/02/20: Take out of isolation since C.diff negative Monitor bowel function Pain control 03/03/20: Pain control Lovenox IR protocol (1) Myopathy (2) C. difficile colitis (3) Atrial fibrillation (4) History of cardioversion (5) Hypertension (6) Diabetes mellitus (7) Hypothyroidism (8) Solitary kidney (9) Ovarian cancer in remission (10) Ileostomy in place LORENZO MIMS DO Mar 03, 2020 08:56
--- NOTE | 2020-03-03 09:00 | Physical Therapy Daily Note ---
PT Daily Note-Current Subjective Pt laying Supine in bed upon arrival. Pt agrees to PT. Pt reports not sleeping well. Pain Location: No Pain Reported Mental Status Patient Orientation: Person, Place, Situation Transfers SCALE: Activities may be completed with or without assistive devices. 4-Hnugcxvjaj-beeslzt completes the activity by him/herself with no assistance from a helper. 5-Set-up or Clean-up Assistance-helper sets up or cleans up; patient completes activity. [place] assists only prior to or following the activity. 4-Supervision or Touching Assistance-helper provides verbal cues and/or touching/steadying and/or contact guard assistance as patient completes activity. Assistance may be provided throughout the activity or intermittently. 3-Partial/Moderate Assistance-helper does LESS THAN HALF the effort. [place] lifts, holds or supports trunk or limbs, but provides less than half the effort. 2-Substantial/Maximal Assistance-helper does MORE THAN HALF the effort. [place] lifts or holds trunk or limbs and provides more than half the effort. 1-Bdmatudnn-rqqihc does ALL the effort. Patient does none of the effort to complete the activity. Or, the assistance of 2 or more helpers is required for the patient to complete the activity. If activity was not attempted, code reason: 7-Patient Refused. 9-Not Applicable-not attempted and the patient did not perform the activity before the current illness, exacerbation or injury. 10-Not Attempted due to Environmental Limitations-(lack of equipment, weather restraints, etc.). 88-Not Attempted due to Medical Conditions or Safety Concerns. Sit to Stand (QC): 5 Toilet Transfer (QC): 5 Weight Bearing Right Lower Extremity: Right Full Weight Bearing Left Lower Extremity: Left Full Weight Bearing Gait Training Does the Patient Walk?: Yes Distance: 150' x2 Walk 10 feet (QC): 5 Walk 50 ft with 2 Turns(QC): 5 Walk 150 ft (QC): 5 Gait Persons Needed: 1 Gait Assistive Device: FWW Wheelchair Training Does the Pt Use a Wheelchair?: No Exercises Seated Therapy Exercises: Ankle pumps, Long arc quads, Hip flexion, Kicking activity, Hip abd/add Seated Reps: 15 NuStep Minutes: 12 NuStep Workload: 1 Treatments TF to standing and uses BR. Pt amb in hallway then uses NuStep for 12m at WL 1. After short RB, pt completes Seated EX before returning to room. Pt resting in recliner with all needs met, call light in hand. Assessment Current Status: Good Progress Pt walks with more normalized gait and reports decreased tightness of HC. PT Short Term Goals Short Term Goals Time Frame: Mar 06, 2020 Roll Left & Right: 6 Sit to lyin Lying to sitting on side of be: 6 Sit to stand: 6 Chair/ked-bl-forrm transfer: 5 4 steps: 4 Picking up objects: 4 PT Pot Pusher Goals Fdc Goals PT Fdc Goals Time Frame: Mar 13, 2020 Roll Left & Right (QC): 6 Sit to Lying (QC): 6 Lying-Sitting on Side/Bed(QC): 6 Sit to Stand (QC): 6 Chair/Jzi-vu-Nosmv Xfer(QC): 6 Toilet Transfer (QC): 6 Car Transfer (QC): 6 Does the Patient Walk: Yes Walk 10 feet (QC): 6 Walk 50ft with 2 Turns (QC): 6 Walk 150 ft (QC): 6 Walking 10ft on Uneven Surface: 6 1 Step (curb) (QC): 6 4 Steps (QC): 6 12 Steps (QC): 6 Picking up an Object (QC): 6 Does the Pt use WC or Scooter?: No Wheel 50 feet with 2 turns (QC: 9 Wheel 150 feet: 9 PT Plan Problem List Problem List: Activity Tolerance, Functional Strength Treatment/Plan Treatment Plan: Continue Plan of Care Treatment Plan: Bed Mobility, Education, Functional Activity Maikel, Functional Strength, Group Therapy, Gait, Safety, Therapeutic Exercise, Transfers Treatment Duration: Mar 13, 2020 Frequency: At least 5 of 7 days/Wk (IRF) Estimated Hrs Per Day: 1.5 hours per day Patient and/or Family Agrees t: Yes Safety Risks/Education Patient Education: Gait Training, Transfer Techniques, Correct Positioning, Safety Issues Teaching Recipient: Patient Teaching Methods: Discussion Response to Teaching: Verbalize Understanding Time/GCodes Time In: 800 Time Out: 900 Total Billed Treatment Time: 60 Total Billed Treatment 1, GT (15m), FA (15m) & EX x2 (30m) ASHWIN MACKENZIE COUNSELLING PSYCHOLOGIST Mar 03, 2020 08:59
[2020-03-03] MEDS: CARVEDILOL 12.5 MG (COREG) TABLET PO SCH ×2 (09:28→21:12)
[2020-03-03] MEDS: LORATADINE (CLARITIN) 10 MG TAB PO SCH (09:28)
[2020-03-03] MEDS: SIMETHICONE 80 MG (MYLICON) CHEW PO SCH ×3 (09:28→21:12)
[2020-03-03] MEDS: amLODIPine 10 MG (NORVASC) TAB PO SCH (09:28)
[2020-03-03] MEDS: AMIODARONE 200 MG (CORDARONE) TAB PO SCH ×2 (09:28→21:12)
[2020-03-03] MEDS: ASPIRIN 81 MG CHEW (CHILDREN'S ASA) PO SCH (09:28)
[2020-03-03] MEDS: DOCUSATE SODIUM 100 MG (COLACE) CAP PO SCH ×2 (09:30→19:37)
[2020-03-03] MEDS: SENNA W/DOCUSATE (SENOKOT S) TABLET PO SCH ×2 (09:30→19:37)
[2020-03-03] MEDS: polyethylene glycoL POWDER 17 GM (MIRALAX) PACK PO SCH ×2 (09:30→19:36)
--- NOTE | 2020-03-03 10:00 | Occupational Ther Daily Note ---
OT Current Status-Daily Note Subjective Pt was in recliner upon arrival. Pt no c/o pain. Pt agreed to therapy. Mental Status/Objective Patient Orientation: Person, Place, Time, Situation Attachments: Colostomy/Ileostomy, IV ADL-Treatment Pt refused sponge bath. Pt stated she wanted to brush teeth. Pt transferred to bathroom FWW to perform oral care, brushing hair using sink to stabilize. Pt transferred back to recliner to perform upper body dressing with set up. Pt demonstrated threading feet into pants/briefs sit to stand using FWW to stabilize while hiking pants/briefs over hip by self after set up. Pt transferred back to restroom using FWW to use restroom, cleansed perineal area by self. Therapy Code Descriptions/Definitions Functional [place] Measure: 0=Not Assessed/NA 4=Minimal Assistance 1=Total Assistance 5=Supervision or Setup 2=Maximal Assistance 6=Modified [place] 3=Moderate Assistance 7=Complete IndependenceSCALE: Activities may be completed with or without assistive devices. 0-Zskkybuwdx-bdgtmav completes the activity by him/herself with no assistance from a helper. 5-Set-up or Clean-up Assistance-helper sets up or cleans up; patient completes activity. [place] assists only prior to or following the activity. 4-Supervision or Touching Assistance-helper provides verbal cues and/or touching/steadying and/or contact guard assistance as patient completes activity. Assistance may be provided throughout the activity or intermittently. 3-Partial/Moderate Assistance-helper does LESS THAN HALF the effort. [place] lifts, holds or supports trunk or limbs, but provides less than half the effort. 2-Substantial/Maximal Assistance-helper does MORE THAN HALF the effort. [place] lifts or holds trunk or limbs and provides more than half the effort. 8-Lclnicmaz-fxuhop does ALL the effort. Patient does none of the effort to complete the activity. Or, the assistance of 2 or more helpers is required for the patient to complete the activity. If activity was not attempted, code reason: 7-Patient Refused. 9-Not Applicable-not attempted and the patient did not perform the activity before the current illness, exacerbation or injury. 10-Not Attempted due to Environmental Limitations-(lack of equipment, weather restraints, etc.). 88-Not Attempted due to Medical Conditions or Safety Concerns. Oral Hygiene (QC): 6 Upper Body Dressing (QC): 5 Lower Body Dressing (QC): 5 On/Off Footwear: 5 Other Treatment Pt performed UE medium theraband exercise to work on B UE strengthening performing 2 sets of 10 reps completing 5/5 exercises, able to remember 2/5 exercises by self. Rest breaks due to fatigue. Skilled instruction required for correct technique and modifications when needed. Call light/phone in reach. All needs met. OT Short Term Goals Short Term Goals Time Frame: Mar 06, 2020 Lower body dressin Putting on/taking off footwear: 6 OT Grinding And Polishing Laborer Goals Grinding And Polishing Laborer Goals Time Frame: Mar 13, 2020 Eating (QC): 6 Oral Hygiene (QC): 6 Toileting Hygiene (QC): 6 Shower/Bathe Self (QC): 6 Upper Body Dressing (QC): 6 Lower Body Dressing (QC): 6 On/Off Footwear (QC): 6 Demonstrate ability to change colonoscopy bag with s/u-IND. Additional Goals: 1-Demonstrate ADL Tasks, 2-Verbalize Understanding, 3- ImproveStrength/Maikel 1=Demonstrate adherence to instructed precautions during ADL tasks. 2=Patient will verbalize/demonstrate understanding of assistive devices/modifications for ADL. 3=Patient will improve strength/tolerance for activity to enable patient to perform ADL's. OT Education/Plan Problem List/Assessment Assessment: Decreased Activ Tolerance, Decreased UE Strength, Impaired Funct Balance, Impaired Self-Care Skills Discharge Recommendations Plan/Recommendations: Continue POC Treatment Plan/Plan of Care Patient would benefit from OT for education, treatment and training to promote independence in ADL's, mobility, safety and/or upper extremity function for ADL's. Plan of Care: ADL Retraining, Functional Mobility, Group Exercise/Act as Ind, UE Funct Exercise/Act, UE Neuromus Re-Ed/Coord Treatment Duration: Mar 13, 2020 Frequency: At least 5 of 7 days/Wk (IRF) Estimated Hrs Per Day: 1.5 hours per day Agreement: Yes Rehab Potential: Good Time/GCodes Start Time: 09:00 Stop Time: 10:00 Total Time Billed (hr/min): 60 Billed Treatment Time 1 visit- ADL 3 (40 mins), EX 2 (20 mins) ELIZABETH BUTLER Mar 03, 2020 10:00
--- NOTE | 2020-03-03 12:01 | Occupational Ther Daily Note ---
OT Current Status-Daily Note Subjective Pt was in bed. Pt no c/o pain. Pt agreed to therapy. Mental Status/Objective Patient Orientation: Person, Place, Time, Situation Attachments: Colostomy/Ileostomy, IV ADL-Treatment Therapy Code Descriptions/Definitions Functional [place] Measure: 0=Not Assessed/NA 4=Minimal Assistance 1=Total Assistance 5=Supervision or Setup 2=Maximal Assistance 6=Modified [place] 3=Moderate Assistance 7=Complete IndependenceSCALE: Activities may be completed with or without assistive devices. 2-Xmzbtdflnm-qpmgfoc completes the activity by him/herself with no assistance from a helper. 5-Set-up or Clean-up Assistance-helper sets up or cleans up; patient completes activity. [place] assists only prior to or following the activity. 4-Supervision or Touching Assistance-helper provides verbal cues and/or touching/steadying and/or contact guard assistance as patient completes activity. Assistance may be provided throughout the activity or intermittently. 3-Partial/Moderate Assistance-helper does LESS THAN HALF the effort. [place] lifts, holds or supports trunk or limbs, but provides less than half the effort. 2-Substantial/Maximal Assistance-helper does MORE THAN HALF the effort. [place] lifts or holds trunk or limbs and provides more than half the effort. 6-Senszbmac-kgqnor does ALL the effort. Patient does none of the effort to complete the activity. Or, the assistance of 2 or more helpers is required for the patient to complete the activity. If activity was not attempted, code reason: 7-Patient Refused. 9-Not Applicable-not attempted and the patient did not perform the activity before the current illness, exacerbation or injury. 10-Not Attempted due to Environmental Limitations-(lack of equipment, weather restraints, etc.). 88-Not Attempted due to Medical Conditions or Safety Concerns. Other Treatment Pt agreed to washing clothing. Pt used FWW to ambulate to closet to gather clothing, placed into basket on front of FWW. Pt ambulated with FWW down to laundry room performed washing clothing, education on safety in the laundry room and how to use adaptive equipment. Pt ambulated back to room using FWW to work on finger strengthening for daily functional tasks. Pt had 1 lb weights placed on wrist while performing activity with weights close pins, completing 2 sets. Pt got back into bed call light/phone in reach. All needs met. OT Short Term Goals Short Term Goals Time Frame: Mar 06, 2020 Lower body dressin Putting on/taking off footwear: 6 OT Correction Goals Leg Breaker Goals Time Frame: Mar 13, 2020 Eating (QC): 6 Oral Hygiene (QC): 6 Toileting Hygiene (QC): 6 Shower/Bathe Self (QC): 6 Upper Body Dressing (QC): 6 Lower Body Dressing (QC): 6 On/Off Footwear (QC): 6 Demonstrate ability to change colonoscopy bag with s/u-IND. Additional Goals: 1-Demonstrate ADL Tasks, 2-Verbalize Understanding, 3- ImproveStrength/Maikel 1=Demonstrate adherence to instructed precautions during ADL tasks. 2=Patient will verbalize/demonstrate understanding of assistive devices /modifications for ADL. 3=Patient will improve strength/tolerance for activity to enable patient to perform ADL's. OT Education/Plan Problem List/Assessment Assessment: Decreased Activ Tolerance, Decreased UE Strength, Impaired Funct Balance Discharge Recommendations Plan/Recommendations: Continue POC Treatment Plan/Plan of Care Patient would benefit from OT for education, treatment and training to promote independence in ADL's, mobility, safety and/or upper extremity function for ADL's. Plan of Care: ADL Retraining, Functional Mobility, Group Exercise/Act as Ind, UE Funct Exercise/Act, UE Neuromus Re-Ed/Coord Treatment Duration: Mar 13, 2020 Frequency: At least 5 of 7 days/Wk (IRF) Estimated Hrs Per Day: 1.5 hours per day Agreement: Yes Rehab Potential: Good Time/GCodes Start Time: 11:30 Stop Time: 12:00 Total Time Billed (hr/min): 30 Billed Treatment Time 1 visit- FA (15mins), EX (15mins) ELIZABETH BUTLER Mar 03, 2020 12:01
--- NOTE | 2020-03-03 13:26 | Wound Care Assessment ---
Wound Care Assessment Date Seen by Provider: Mar 03, 2020 Time Seen by Provider: 07:45 Chief Complaint Midline abdominal wound. HPI The patient is a 75 year old female with large open midline wound s/p exploratory laparotomy for peritonitis due to Clostridium difficile colitis. The wound base is clean, with some hypergranulation. Will observe on saline dressings. may benefit from Wound VAC. Will follow. 03/03/20 Interval Note: No c/o related to abdominal wound. The dressing changes are not painful. The wound is clean and closing. Continue W->D saline dressings. 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 drainage.) Results Laboratory Tests 03/02/20 16:54: Glucometer 137H 03/02/20 21:17: Glucometer 125H 03/03/20 05:23: Glucometer 134H Microbiology 03/01/20 C. difficile GDH Antigen & Toxins - Final, Complete Assessment/Plan/Dx 1. Midline abdominal wound, s/p exploratory laparotomy for peritonitis. 2. Diabetes mellitus. 3. Atrial fibrillation. 4. Disuse myopathy. Plan: Improving, continue saline dressings. KIMBERLY BAUTISTA MD Mar 03, 2020 13:26
--- NOTE | 2020-03-03 13:29 | Physical Therapy Daily Note ---
PT Daily Note-Current Subjective Pt laying Supine in bed upon arrival. Pt agrees to PT but reports fatigue this afternoon. Pain Numeric Pain Scale: 4 Location: Right, Left Location Body Site: Thigh Pain Description: Tightness Mental Status Patient Orientation: Person, Place, Time, Situation Transfers SCALE: Activities may be completed with or without assistive devices. 0-Jmbbdlqgry-skxiwwt completes the activity by him/herself with no assistance from a helper. 5-Set-up or Clean-up Assistance-helper sets up or cleans up; patient completes activity. [place] assists only prior to or following the activity. 4-Supervision or Touching Assistance-helper provides verbal cues and/or touching/steadying and/or contact guard assistance as patient completes activity. Assistance may be provided throughout the activity or intermittently. 3-Partial/Moderate Assistance-helper does LESS THAN HALF the effort. [place] lift s, holds or supports trunk or limbs, but provides less than half the effort. 2-Substantial/Maximal Assistance-helper does MORE THAN HALF the effort. [place] lifts or holds trunk or limbs and provides more than half the effort. 5-Vmabpbhvo-jaslde does ALL the effort. Patient does none of the effort to complete the activity. Or, the assistance of 2 or more helpers is required for the patient to complete the activity. If activity was not attempted, code reason: 7-Patient Refused. 9-Not Applicable-not attempted and the patient did not perform the activity before the current illness, exacerbation or injury. 10-Not Attempted due to Environmental Limitations-(lack of equipment, weather restraints, etc.). 88-Not Attempted due to Medical Conditions or Safety Concerns. Weight Bearing Right Lower Extremity: Right Full Weight Bearing Left Lower Extremity: Left Full Weight Bearing Exercises Supine Ex: Ankle pumps, Quad Set, Glut sets, Heel Slides, Straight leg raise, Hip abd/add Supine Reps: 20 Treatments Completes Supine Ex as well as GROCERY STOCK CLERK stretches tight hamstrings. Pt resting with all needs met at end of tx, call light next to pt. Assessment Current Status: Good Progress Pt is gaining strength but is limited by tight hamstrings. PT Short Term Goals Short Term Goals Time Frame: Mar 06, 2020 Roll Left & Right: 6 Sit to lyin Lying to sitting on side of be: 6 Sit to stand: 6 Chair/efo-zs-rbwcb transfer: 5 4 steps: 4 Picking up objects: 4 PT Datastage Developer Goals Longterm Goals PT Longterm Goals Time Frame: Mar 13, 2020 Roll Left & Right (QC): 6 Sit to Lying (QC): 6 Lying-Sitting on Side/Bed(QC): 6 Sit to Stand (QC): 6 Chair/Wgq-jz-Ztsfq Xfer(QC): 6 Toilet Transfer (QC): 6 Car Transfer (QC): 6 Does the Patient Walk: Yes Walk 10 feet (QC): 6 Walk 50ft with 2 Turns (QC): 6 Walk 150 ft (QC): 6 Walking 10ft on Uneven Surface: 6 1 Step (curb) (QC): 6 4 Steps (QC): 6 12 Steps (QC): 6 Picking up an Object (QC): 6 Does the Pt use WC or Scooter?: No Wheel 50 feet with 2 turns (QC: 9 Wheel 150 feet: 9 PT Plan Problem List Problem List: Activity Tolerance Treatment/Plan Treatment Plan: Continue Plan of Care Treatment Plan: Bed Mobility, Education, Functional Activity Maikel, Functional Strength, Group Therapy, Gait, Safety, Therapeutic Exercise, Transfers Treatment Duration: Mar 13, 2020 Frequency: At least 5 of 7 days/Wk (IRF) Estimated Hrs Per Day: 1.5 hours per day Patient and/or Family Agrees t: Yes Safety Risks/Education Patient Education: Correct Positioning, Safety Issues Teaching Recipient: Patient Teaching Methods: Discussion Response to Teaching: Verbalize Understanding Time/GCodes Time In: 1300 Time Out: 1330 Total Billed Treatment Time: 30 Total Billed Treatment 1, EX x2 (30m) ASHWIN MACKENZIE PTA Mar 03, 2020 13:29
[2020-03-03] MEDS ORDERED: AMIT100T2 PO (14:33)
[2020-03-03] MEDS ORDERED: ATOR20TA66 PO (14:33)
[2020-03-03] MEDS ORDERED: FENO160T12 PO (14:33)
[2020-03-03] MEDS ORDERED: PIOG30TA71 PO (14:33)
[2020-03-03] MEDS ORDERED: LISI-552 PO ×2 (14:33)
[2020-03-03] MEDS ORDERED: LEVO112T55 PO (14:33)
[2020-03-03] MEDS ORDERED: NF-PILO5T PO (14:33)
[2020-03-03] MEDS ORDERED: SIME80TA PO (14:33)
[2020-03-03] MEDS ORDERED: ATOR40TA70 PO (14:33)
[2020-03-03] MEDS ORDERED: OXYB5TAB13 PO (14:33)
[2020-03-03] MEDS ORDERED: LIRA0.6P3 SQ (14:33)
[2020-03-03] MEDS ORDERED: PANT40TA52 PO (14:33)
[2020-03-03] MEDS ORDERED: LEFL20TA18 PO (14:34)
[2020-03-03] MEDS ORDERED: CALC1TAB84 PO (14:48)
[2020-03-03] MEDS ORDERED: FISH1CAP15 PO (14:48)
[2020-03-03] MEDS ORDERED: CALC-250 PO (14:48)
--- NOTE | 2020-03-03 15:30 | NUR ---
RD ASSESSMENT PMHx: afib; HTN; colitis; DM; hypothyroidism; CA(ovarian) PT INTERACTION: Pt was awake and pleasant during nutrition assessment. Pt states current appetite is "off and on." Note avg PO intake 71% x4d, per chart review. Pt states following a low-potassium/intermittent fasting type of diet at home, and has no issues with chewing/swallowing food. Pt states no recent issues with nausea, vomiting, constipation, or diarrhea. Note pt currently has ileostomy, and has no current issues with output. Note last BM was was 03/03, and pt currently on bowel regimen of colace BID; senna BID; and miralax BID, per chart review. Pt states recent wt of 144# 2months ago. Note current wt of 136#, per chart review. Pt states current DM control is good. Note unable to determine recent HbA1c, per chart review. Pt states having questions about appropriate foods for her to eat. ABNORMAL NUTRITION-RELATED LAB VALUES LOW: Ca 6.2; HIGH: Cl 110; BUN 28; glu 111 Est. kcal needs: 1550 kcal | 25 kcal/kg Est. Pro needs: 62 g Pro | 1.0 g Pro/kg PES STATEMENT: Inadequate oral intake (NI-2.1) related to loss of appetite as evidenced by pt interview and avg PO intake 71% x4d. Food- and nutrition-related knowledge deficit (NB-1.1) related to lack of prior nutrition-related education as evidenced by pt interview. INTERVENTION: Continue with current diet order of CHO 60g/m 3snack diet. Pt may benefit from nutrition supplementation if PO intake declines. Discussed and provided diet education on DM management. Pt had questions about specific foods in her current diet. Discussed CHO counting, fiber content, and portion control. Pt verbalized understanding of information provided. Will follow-up on reinforcement of education. Will continue to follow and reassess as pt needs, intake, and status change. Justin Peres, MS RD LD
[2020-03-03 16:30] VITALS: BP 120/62
[2020-03-03] MEDS: GENTAMICIN SULFATE TP SCH ×3 (17:26→17:28)
[2020-03-03] MEDS: MELATONIN 3 MG TABLET PO PRN (21:12)
[2020-03-04 05:32] VITALS: BP 129/59
[2020-03-04] MEDS: ASCORBIC ACID (VIT C) 500 MG TABLET PO SCH (06:25)
[2020-03-04] MEDS: MULTIVIT W/MINERALS TAB (THERAGRAN M) PO SCH (06:25)
[2020-03-04] MEDS: ENOXAPARIN 40 MG/0.4 ML (LOVENOX) SYR SC SCH (06:25)
[2020-03-04] MEDS: inSUlin ASPART (NovoLOG) 1 UNIT/0.01 ML (CHARGE PER UNIT) SC SCH ×4 (06:49→20:28)
[2020-03-04] MEDS: ASPIRIN 81 MG CHEW (CHILDREN'S ASA) PO SCH (08:11)
[2020-03-04] MEDS: amLODIPine 10 MG (NORVASC) TAB PO SCH (08:11)
[2020-03-04] MEDS: AMIODARONE 200 MG (CORDARONE) TAB PO SCH ×2 (08:11→20:28)
[2020-03-04] MEDS: CARVEDILOL 12.5 MG (COREG) TABLET PO SCH ×2 (08:12→20:28)
[2020-03-04] MEDS: SIMETHICONE 80 MG (MYLICON) CHEW PO SCH ×3 (08:18→20:28)
[2020-03-04] MEDS: LORATADINE (CLARITIN) 10 MG TAB PO SCH (08:19)
--- NOTE | 2020-03-04 08:44 | PM&R Progress Note ---
Subjective HPI/CC On Admission Date Seen by Provider: Mar 04, 2020 Time Seen by Provider: 08:45 Subjective/Events-last exam 03/04/20: Discharge is planned on 03/10 Wound care seeing her Redness around the stoma will be addressed Changing laxatives to prn 03/03/20: Pt doing very well Dr. Jasso saw the wound and it is healing well Overall seems to be doing very well DC planned soon 03/02/20: Hgb 10.1 Will discontinue Benadryl and will take Claritin instead Only has one kidney, she is very particular about medications Isolation was discontinued because C-Diff was negative again Bowels are moving through the ileostomy 03/01/20: C diff second specimen sent to lab Pain pill given today and it helped Lovenox maintained No OAC recommended Dr Gaviria appreciated Patient doing well C diff negative and will recheck tomorrow then DC isolation BM today Dr Jasso consulted for wound care of abdomen WBC 11 Dr Gaviria consulted for AF and OAC question Checked meds and labs Conferred with RN Reviewed therapy notes Review of Systems Gastrointestinal: Abdominal Pain, Diarrhea Objective Exam Vital Signs Vital Signs Date Time Temp Pulse Resp B/P (MAP) Pulse Ox O2 Delivery O2 Flow Rate FiO2 03/05/20 01:00 60 03/04/20 20:10 Room Air 03/04/20 17:29 37.0 16 144/68 (93) 98 03/01/20 21:15 96.00 Capillary Refill : Less Than 3 Seconds General Appearance: No Apparent Distress, WD/WN, Chronically ill HEENT: PERRL/EOMI, Normal ENT Inspection, Pharynx Normal Neck: Full Range of Motion, Normal Inspection, Non Tender, Supple, Carotid Bruit Respiratory: Chest Non Tender, Lungs Clear, Normal Breath Sounds, No Accessory Muscle Use, No Respiratory Distress Cardiovascular: Regular Rate, Rhythm, No Edema, No Gallop, No JVD, No Murmur, Normal Peripheral Pulses Gastrointestinal: Normal Bowel Sounds, No Organomegaly, No Pulsatile Mass, Non Tender, Soft Back: Normal Inspection, No CVA Tenderness, No Vertebral Tenderness Extremity: Normal Capillary Refill, Normal Inspection, Normal Range of Motion, Non Tender, No Calf Tenderness, No Pedal Edema Neurologic/Psychiatric: Alert, Oriented x3, No Motor/Sensory Deficits, 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, Abnormal Gait, Motor Weakness (generalized) Skin: Normal Color, Warm/Dry Lymphatic: No Adenopathy Results/Procedures Lab Patient resulted labs reviewed. FIM Transfers Therapy Code Descriptions/Definitions Functional [place] Measure: 0=Not Assessed/NA 4=Minimal Assistance 1=Total Assistance 5=Supervision or Setup 2=Maximal Assistance 6=Modified [place] 3=Moderate Assistance 7=Complete IndependenceSCALE: Activities may be completed with or without assistive devices. 2-Zenjmrhljp-fsitmal completes the activity by him/herself with no assistance from a helper. 5-Set-up or Clean-up Assistance-helper sets up or cleans up; patient completes activity. [place] assists only prior to or following the activity. 4-Supervision or Touching Assistance-helper provides verbal cues and/or touching/steadying and/or contact guard assistance as patient completes activity. Assistance may be provided throughout the activity or intermittently. 3-Partial/Moderate Assistance-helper does LESS THAN HALF the effort. [place] lifts, holds or supports trunk or limbs, but provides less than half the effort. 2-Substantial/Maximal Assistance-helper does MORE THAN HALF the effort. [place] lifts or holds trunk or limbs and provides more than half the effort. 6-Jvujjyydc-nnbdxi does ALL the effort. Patient does none of the effort to complete the activity. Or, the assistance of 2 or more helpers is required for the patient to complete the activity. If activity was not attempted, code reason: 7-Patient Refused. 9-Not Applicable-not attempted and the patient did not perform the activity bef ore the current illness, exacerbation or injury. 10-Not Attempted due to Environmental Limitations-(lack of equipment, weather r estraints, etc.). 88-Not Attempted due to Medical Conditions or Safety Concerns. Roll Left to Right (QC): 6 Sit to Lying (QC): 6 Sit to Stand (QC): 5 Chair/Kfp-hb-Izjpc Xfer(QC): 6 Car Transfer (QC): 4 Gait Training Does the Patient Walk?: Yes Distance: 150' x2 Walk 10 feet (QC): 5 Walk 50 ft with 2 Turns(QC): 5 Walk 150 ft (QC): 5 Walking 10ft/uneven surface-QC: 4 Gait Persons Needed: 1 Gait Assistive Device: FWW Wheelchair Training Does the Pt Use a Wheelchair?: No Wheel 50 ft with 2 turns (QC): 9 Wheel 150 ft (QC): 9 Stair Training #of Steps: 1 1 Step (curb) (QC): 4 4 Steps (QC): 88 12 Steps (QC): 88 Balance Picking up an Object (QC): 88 ADL-Treatment Eating (QC): 6 (drinks with IND. per clinical judgment pt is IND with eating tasks.) Oral Hygiene (QC): 6 Bathing Location: L Arm, R Arm, L Upper Leg, R Upper Leg, L Lower Leg (including foot), R Lower Leg (including foot), Chest, Abdomen, Buttocks, Perineal Area Shower/Bathe Self (QC): 5 Upper Body Dressing (QC): 5 Lower Body Dressing (QC): 5 On/Off Footwear (QC): 5 Toileting Hygiene (QC): 4 (CGA in stance for bottom hygiene.) Assessment/Plan Assessment and Plan Assess & Plan/Chief Complaint Assessment: Myopathy AF w/RVR s/p cardioversion Hypothyroidism C diff colitis hx Ovarian cancer hx DM HTN Solitary kidney Plan: Home meds IRF protocol Insulin Monitor stools 02/29/20: Monitor loose stools OAC question? Dr Gaviria consult 03/01/20: Monitor pain C diff last specimen sent to lab Dr Gaviria appreciated 03/02/20: Take out of isolation since C.diff negative Monitor bowel function Pain control 03/03/20: Pain control Lovenox IRF protocol 03/04/20: Laxatives prn Monitor closely (1) Myopathy (2) C. difficile colitis (3) Atrial fibrillation (4) History of cardioversion (5) Hypertension (6) Diabetes mellitus (7) Hypothyroidism (8) Solitary kidney (9) Ovarian cancer in remission (10) Ileostomy in place LORENZO MIMS DO Mar 04, 2020 08:44
--- NOTE | 2020-03-04 10:00 | Occupational Ther Daily Note ---
OT Current Status-Daily Note Subjective Pt was in recliner upon arrival. Pt no c/o pain. Pt agreed to therapy. Mental Status/Objective Patient Orientation: Person, Place, Time, Situation Attachments: Colostomy/Ileostomy, IV, Telemetry ADL-Treatment Pt agreed to taking shower. Pt ambulated independently with FWW to restroom. Pt stated to needed to use restroom, using grab bars to stabilize while cleansed perineal area by self. Pt used FWW to ambulate to shower using grab bars to stabilize while getting into shower. Pt able to wash upper/lower body. Pt used grab bars to stabilize in standing while cleansing buttocks and perineal area. Pt transferred from shower to chair in bathroom using FWW to don clothing. Pt was able to perform upper body dressing with set up. Pt threaded legs into pants/underwear using FWW to stabilize while hiking pants/underwear over hips by self. Pt ambulated to sink using FWW using sink to stabilize while performing oral care, brushing hair needed rest break due to fatigue. Pt ambulated back to bed call light/phone in reach. All needs met. Therapy Code Descriptions/Definitions Functional [place] Measure: 0=Not Assessed/NA 4=Minimal Assistance 1=Total Assistance 5=Supervision or Setup 2=Maximal Assistance 6=Modified [place] 3=Moderate Assistance 7=Complete IndependenceSCALE: Activities may be completed with or without assistive devices. 8-Jazyoswzfy-qoypvgc completes the activity by him/herself with no assistance from a helper. 5-Set-up or Clean-up Assistance-helper sets up or cleans up; patient completes activity. [place] assists only prior to or following the activity. 4-Supervision or Touching Assistance-helper provides verbal cues and/or to uching/steadying and/or contact guard assistance as patient completes activity. Assistance may be provided throughout the activity or intermittently. 3-Partial/Moderate Assistance-helper does LESS THAN HALF the effort. [place] lifts, holds or supports trunk or limbs, but provides less than half the effort. 2-Substantial/Maximal Assistance-helper does MORE THAN HALF the effort. [place] lifts or holds trunk or limbs and provides more than half the effort. 4-Bmejzmphx-lwmlly does ALL the effort. Patient does none of the effort to complete the activity. Or, the assistance of 2 or more helpers is required for the patient to complete the activity. If activity was not attempted, code reason: 7-Patient Refused. 9-Not Applicable-not attempted and the patient did not perform the activity before the current illness, exacerbation or injury. 10-Not Attempted due to Environmental Limitations-(lack of equipment, weather restraints, etc.). 88-Not Attempted due to Medical Conditions or Safety Concerns. Oral Hygiene (QC): 6 Bathing Location: L Arm, R Arm, L Upper Leg, R Upper Leg, L Lower Leg (incl uding foot), R Lower Leg (including foot), Chest, Abdomen, Buttocks, Perineal Area Shower/Bathe Self (QC): 6 Upper Body Dressing (QC): 5 Lower Body Dressing (QC): 5 On/Off Footwear: 5 Toileting Hygiene (QC): 5 Toilet Transfer (QC): 5 OT Short Term Goals Short Term Goals Time Frame: Mar 06, 2020 Lower body dressin Putting on/taking off footwear: 6 OT Erection Shop Supervisor Goals Erection Shop Supervisor Goals Time Frame: Mar 13, 2020 Eating (QC): 6 Oral Hygiene (QC): 6 Toileting Hygiene (QC): 6 Shower/Bathe Self (QC): 6 Upper Body Dressing (QC): 6 Lower Body Dressing (QC): 6 On/Off Footwear (QC): 6 Demonstrate ability to change colonoscopy bag with s/u-IND. Additional Goals: 1-Demonstrate ADL Tasks, 2-Verbalize Understanding, 3- ImproveStrength/Maikel 1=Demonstrate adherence to instructed precautions during ADL tasks. 2=Patient will verbalize/demonstrate understanding of assistive devices/modifications for ADL. 3=Patient will improve strength/tolerance for activity to enable patient to perform ADL's. OT Education/Plan Problem List/Assessment Assessment: Decreased Activ Tolerance, Decreased UE Strength, Impaired Funct Balance, Impaired Self-Care Skills Discharge Recommendations Plan/Recommendations: Continue POC Treatment Plan/Plan of Care Patient would benefit from OT for education, treatment and training to promote independence in ADL's, mobility, safety and/or upper extremity function for ADL's. Plan of Care: ADL Retraining, Functional Mobility, Group Exercise/Act as Ind, UE Funct Exercise/Act, UE Neuromus Re-Ed/Coord Treatment Duration: Mar 13, 2020 Frequency: At least 5 of 7 days/Wk (IRF) Estimated Hrs Per Day: 1.5 hours per day Agreement: Yes Rehab Potential: Good Time/GCodes Start Time: 09:00 Stop Time: 10:00 Total Time Billed (hr/min): 60 Billed Treatment Time 1 visit- ADL 4 (60 mins) ELIZABETH BUTLER Mar 04, 2020 10:00
--- NOTE | 2020-03-04 10:00 | NUR ---
Discussion with Pt about colostomy. Gave handout and demonstrated 2-peice colostomy appliance. questions answered. Pt and verbalize understanding. Explained to patient how to empty ostomy bag by herself. Explained we will practice emptying it and taking care of the ostomy application this afternoon, when she is done with lunch. [employer] form filled out, faxed to .
--- NOTE | 2020-03-04 10:01 | Physical Therapy Daily Note ---
PT Daily Note-Current Subjective Pt laying Supine in bed upon arrival. Nurse present give morning meds and addressing Col. bag that had leaked. Pt agrees to PT. Pain Location: No Pain Reported Mental Status Patient Orientation: Person, Place, Situation Attachments: Colostomy/Ileostomy Transfers SCALE: Activities may be completed with or without assistive devices. 4-Khpknauuuk-keozvbo completes the activity by him/herself with no assistance from a helper. 5-Set-up or Clean-up Assistance-helper sets up or cleans up; patient completes activity. [place] assists only prior to or following the activity. 4-Supervision or Touching Assistance-helper provides verbal cues and/or touching/steadying and/or contact guard assistance as patient completes activity. Assistance may be provided throughout the activity or intermittently. 3-Partial/Moderate Assistance-helper does LESS THAN HALF the effort. [place] lifts, holds or supports trunk or limbs, but provides less than half the effort. 2-Substantial/Maximal Assistance-helper does MORE THAN HALF the effort. [place] lifts or holds trunk or limbs and provides more than half the effort. 9-Oupuoiyze-spfftv does ALL the effort. Patient does none of the effort to complete the activity. Or, the assistance of 2 or more helpers is required for the patient to complete the activity. If activity was not attempted, code reason: 7-Patient Refused. 9-Not Applicable-not attempted and the patient did not perform the activity before the current illness, exacerbation or injury. 10-Not Attempted due to Environmental Limitations-(lack of equipment, weather restraints, etc.). 88-Not Attempted due to Medical Conditions or Safety Concerns. Lying to Sitting/Side of Bed(Q: 5 Sit to Stand (QC): 5 Chair/Hvm-vx-Vxphu Xfer(QC): 5 Weight Bearing Right Lower Extremity: Right Full Weight Bearing Left Lower Extremity: Left Full Weight Bearing Gait Training Does the Patient Walk?: Yes Distance: 150' x2 Walk 10 feet (QC): 5 Walk 50 ft with 2 Turns(QC): 5 Walk 150 ft (QC): 5 Gait Persons Needed: 1 Gait Assistive Device: FWW Wheelchair Training Does the Pt Use a Wheelchair?: No Exercises Supine Ex: Ankle pumps, Quad Set, Glut sets, Heel Slides, Straight leg raise, Hip abd/add Supine Reps: 15 NuStep Minutes: 15 NuStep Workload: 1 Treatments Pt takes morning meds and Col. bag is cleaned and and disposed of with new one attached. Pt doffs/dons undergarment & gown. Pt transfers to standing at sink to watch hands then amb. in hallway. Pt uses NuStep for 15m at WL then takes short RB. Pt completes Ex then returns to room at end of tx with all needs met, call light in hand. Assessment Current Status: Good Progress Pt has improved with strength and activity tolerance. PT Short Term Goals Short Term Goals Time Frame: Mar 06, 2020 Roll Left & Right: 6 Sit to lyin Lying to sitting on side of be: 6 Sit to stand: 6 Chair/ynl-ri-mljkh transfer: 5 4 steps: 4 Picking up objects: 4 PT Lock Operator Goals Lock Operator Goals PT Lock Operator Goals Time Frame: Mar 13, 2020 Roll Left & Right (QC): 6 Sit to Lying (QC): 6 Lying-Sitting on Side/Bed(QC): 6 Sit to Stand (QC): 6 Chair/Olb-xx-Enpcg Xfer(QC): 6 Toilet Transfer (QC): 6 Car Transfer (QC): 6 Does the Patient Walk: Yes Walk 10 feet (QC): 6 Walk 50ft with 2 Turns (QC): 6 Walk 150 ft (QC): 6 Walking 10ft on Uneven Surface: 6 1 Step (curb) (QC): 6 4 Steps (QC): 6 12 Steps (QC): 6 Picking up an Object (QC): 6 Does the Pt use WC or Scooter?: No Wheel 50 feet with 2 turns (QC: 9 Wheel 150 feet: 9 PT Plan Treatment/Plan Treatment Plan: Continue Plan of Care Treatment Plan: Bed Mobility, Education, Functional Activity Maikel, Functional Strength, Group Therapy, Gait, Safety, Therapeutic Exercise, Transfers Treatment Duration: Mar 13, 2020 Frequency: At least 5 of 7 days/Wk (IRF) Estimated Hrs Per Day: 1.5 hours per day Patient and/or Family Agrees t: Yes Safety Risks/Education Patient Education: Correct Positioning, Safety Issues Teaching Recipient: Patient Teaching Methods: Discussion Response to Teaching: Verbalize Understanding Time/GCodes Time In: 800 Time Out: 900 Total Billed Treatment Time: 60 Total Billed Treatment 1, FA x2 (25m), EX (20m) & GT (15m) ASHWIN MACKENZIE SUPERVISOR HARVESTING Mar 04, 2020 10:01
[2020-03-04] MEDS: DOCUSATE SODIUM 100 MG (COLACE) CAP PO SCH ×2 (11:08→19:39)
[2020-03-04] MEDS: SENNA W/DOCUSATE (SENOKOT S) TABLET PO SCH ×2 (11:09→19:40)
[2020-03-04] MEDS: GENTAMICIN SULFATE TP SCH (11:09)
[2020-03-04] MEDS: polyethylene glycoL POWDER 17 GM (MIRALAX) PACK PO SCH ×2 (11:09→19:39)
[2020-03-04] MEDS ORDERED: FERR-84 PO (12:56)
--- NOTE | 2020-03-04 14:18 | Therapy Group Daily Note ---
Therapy Daily Group Note Patient Education Topic Other List Below (transfers and adaptive equipment ) Exercises LE Seated Exercise, UE Exercise Session Ratio (pt:therapist): 3:1 Goal of Session: UE/LE Strengthing, Safety with Transfers, Use of Adaptive Equipment Goal Met for this Session: Yes Pt Benefit of Group: Contributions to Others, F/U Use of Strategies @Home, Increased Functional Safety, Increased Functional Strength, Improved Cognition, Recognition of Peers, Socialization Other/Notes Pt ambulated to Pending sale to [facility] using FWW. Introduction ( person, living now, what they looked forward to once leaving) socialization, seated UE/LE exercises, educational topics adaptive equipment and transfers. Pt was alert and participated giving response to group discussion. Pt was educated on safe transfers and how to use adaptive equipment properly by responding to discussion giving feedback. Pt performed UE/LE exercises completing 8/8 exercises. Pt ambulated back to room using FWW in bed call light/phone in reach. All needs met. Start Time: 13:00 Stop Time: 14:00 Total Billed Treatment Time: 60 Total Billed Treatment 1-GRP ELIZABETH BUTLER Mar 04, 2020 14:18
[2020-03-04 17:29] VITALS: BP 144/68
[2020-03-04] MEDS: MELATONIN 3 MG TABLET PO PRN (22:43)
--- NOTE | 2020-03-05 05:52 | PM&R Progress Note ---
Subjective HPI/CC On Admission Date Seen by Provider: Mar 05, 2020 Time Seen by Provider: 11:00 Subjective/Events-last exam 03/05/20: Ileostomy functioning well Dominique is trying an inverted wafer to prevent bag from falling off Pain controlled 03/04/20: Discharge is planned on 03/10 Wound care seeing her Redness around the stoma will be addressed Changing laxatives to prn 03/03/20: Pt doing very well Dr. Jasso saw the wound and it is healing well Overall seems to be doing very well DC planned soon 03/02/20: Hgb 10.1 Will discontinue Benadryl and will take Claritin instead Only has one kidney, she is very particular about medications Isolation was discontinued because C-Diff was negative again Bowels are moving through the ileostomy 03/01/20: C diff second specimen sent to lab Pain pill given today and it helped Lovenox maintained No OAC recommended Dr Gaviria appreciated Patient doing well C diff negative and will recheck tomorrow then DC isolation BM today Dr Jasso consulted for wound care of abdomen WBC 11 Dr Gaviria consulted for AF and OAC question Checked meds and labs Conferred with RN Reviewed therapy notes Review of Systems Gastrointestinal: Abdominal Pain Objective Exam Vital Signs Vital Signs Date Time Temp Pulse Resp B/P (MAP) Pulse Ox O2 Delivery O2 Flow Rate FiO2 03/06/20 05:57 36.3 64 18 116/54 (74) 97 Room Air 03/01/20 21:15 96.00 Capillary Refill : Less Than 3 Seconds General Appearance: No Apparent Distress, WD/WN, Chronically ill HEENT: PERRL/EOMI, Normal ENT Inspection, Pharynx Normal Neck: Full Range of Motion, Normal Inspection, Non Tender, Supple, Carotid Bruit Respiratory: Chest Non Tender, Lungs Clear, Normal Breath Sounds, No Accessory Muscle Use, No Respiratory Distress Cardiovascular: Regular Rate, Rhythm, No Edema, No Gallop, No JVD, No Murmur, Normal Peripheral Pulses Gastrointestinal: Normal Bowel Sounds, No Organomegaly, No Pulsatile Mass, Non Tender, Soft Back: Normal Inspection, No CVA Tenderness, No Vertebral Tenderness Extremity: Normal Capillary Refill, Normal Inspection, Normal Range of Motion, Non Tender, No Calf Tenderness, No Pedal Edema Neurologic/Psychiatric: Alert, Oriented x3, No Motor/Sensory Deficits, 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, Abnormal Gait, Motor Weakness (generalized) Skin: Normal Color, Warm/Dry Lymphatic: No Adenopathy Results/Procedures Lab Patient resulted labs reviewed. FIM Transfers Therapy Code Descriptions/Definitions Functional [place] Measure: 0=Not Assessed/NA 4=Minimal Assistance 1=Total Assistance 5=Supervision or Setup 2=Maximal Assistance 6=Modified [place] 3=Moderate Assistance 7=Complete IndependenceSCALE: Activities may be completed with or without assistive devices. 0-Pogwaowwnz-ddqmure completes the activity by him/herself with no assistance from a helper. 5-Set-up or Clean-up Assistance-helper sets up or cleans up; patient completes activity. [place] assists only prior to or following the activity. 4-Supervision or Touching Assistance-helper provides verbal cues and/or touching/steadying and/or contact guard assistance as patient completes activity. Assistance may be provided throughout the activity or intermittently. 3-Partial/Moderate Assistance-helper does LESS THAN HALF the effort. [place] lifts, holds or supports trunk or limbs, but provides less than half the effort. 2-Substantial/Maximal Assistance-helper does MORE THAN HALF the effort. [place] lifts or holds trunk or limbs and provides more than half the effort. 4-Gaajkxjux-fmiqfd does ALL the effort. Patient does none of the effort to complete the activity. Or, the assistance of 2 or more helpers is required for the patient to complete the activity. If activity was not attempted, code reason: 7-Patient Refused. 9-Not Applicable-not attempted and the patient did not perform the activity before the current illness, exacerbation or injury. 10-Not Attempted due to Environmental Limitations-(lack of equipment, weather restraints, etc.). 88-Not Attempted due to Medical Conditions or Safety Concerns. Roll Left to Right (QC): 6 Sit to Lying (QC): 6 Sit to Stand (QC): 5 Chair/Gvs-hc-Nkfkr Xfer(QC): 5 Car Transfer (QC): 4 Gait Training Does the Patient Walk?: Yes Distance: 150' x2 Walk 10 feet (QC): 5 Walk 50 ft with 2 Turns(QC): 5 Walk 150 ft (QC): 5 Walking 10ft/uneven surface-QC: 4 Gait Persons Needed: 1 Gait Assistive Device: FWW Wheelchair Training Does the Pt Use a Wheelchair?: No Wheel 50 ft with 2 turns (QC): 9 Wheel 150 ft (QC): 9 Stair Training #of Steps: 1 1 Step (curb) (QC): 4 4 Steps (QC): 88 12 Steps (QC): 88 Balance Picking up an Object (QC): 88 ADL-Treatment Eating (QC): 6 (drinks with IND. per clinical judgment pt is IND with eating tasks.) Oral Hygiene (QC): 6 Bathing Location: L Arm, R Arm, L Upper Leg, R Upper Leg, L Lower Leg (including foot), R Lower Leg (including foot), Chest, Abdomen, Buttocks, Perineal Area Shower/Bathe Self (QC): 6 Upper Body Dressing (QC): 5 Lower Body Dressing (QC): 5 On/Off Footwear (QC): 5 Toileting Hygiene (QC): 5 Toilet Transfer (QC): 5 Assessment/Plan Assessment and Plan Assess & Plan/Chief Complaint Assessment: Myopathy AF w/RVR s/p cardioversion Hypothyroidism C diff colitis hx Ovarian cancer hx DM HTN Solitary kidney Plan: Home meds IRF protocol Insulin Monitor stools 02/29/20: Monitor loose stools OAC question? Dr Gaviria consult 03/01/20: Monitor pain C diff last specimen sent to lab Dr Gaviria appreciated 03/02/20: Take out of isolation since C.diff negative Monitor bowel function Pain control 03/03/20: Pain control Lovenox IRF protocol 03/04/20: Laxatives prn Monitor closely 03/05/20: Ileostomy bag ostomy care Pain meds (1) Myopathy (2) C. difficile colitis (3) Atrial fibrillation (4) History of cardioversion (5) Hypertension (6) Diabetes mellitus (7) Hypothyroidism (8) Solitary kidney (9) Ovarian cancer in remission (10) Ileostomy in place LORENZO MIMS DO Mar 05, 2020 05:52
[2020-03-05 06:11] VITALS: BP 109/61
[2020-03-05] MEDS: inSUlin ASPART (NovoLOG) 1 UNIT/0.01 ML (CHARGE PER UNIT) SC SCH ×4 (06:16→20:33)
[2020-03-05] MEDS: ASCORBIC ACID (VIT C) 500 MG TABLET PO SCH (06:21)
[2020-03-05] MEDS: MULTIVIT W/MINERALS TAB (THERAGRAN M) PO SCH (06:21)
[2020-03-05] MEDS: ENOXAPARIN 40 MG/0.4 ML (LOVENOX) SYR SC SCH (06:22)
[2020-03-05] MEDS: LORATADINE (CLARITIN) 10 MG TAB PO SCH (08:29)
[2020-03-05] MEDS: SIMETHICONE 80 MG (MYLICON) CHEW PO SCH ×3 (08:29→20:41)
[2020-03-05] MEDS: CARVEDILOL 12.5 MG (COREG) TABLET PO SCH ×2 (08:29→20:41)
[2020-03-05] MEDS: AMIODARONE 200 MG (CORDARONE) TAB PO SCH ×2 (08:29→20:41)
[2020-03-05] MEDS: ASPIRIN 81 MG CHEW (CHILDREN'S ASA) PO SCH (08:29)
[2020-03-05] MEDS: amLODIPine 10 MG (NORVASC) TAB PO SCH (08:29)
[2020-03-05] MEDS: SENNA W/DOCUSATE (SENOKOT S) TABLET PO SCH ×2 (08:30→19:49)
[2020-03-05] MEDS: polyethylene glycoL POWDER 17 GM (MIRALAX) PACK PO SCH ×2 (08:30→19:48)
[2020-03-05] MEDS: DOCUSATE SODIUM 100 MG (COLACE) CAP PO SCH ×2 (08:30→19:48)
[2020-03-05] MEDS: GENTAMICIN SULFATE TP SCH (09:14)
--- NOTE | 2020-03-05 09:15 | NUR ---
ostomy leaking. overnight RN states "leaked off and on throughout night." previous wafer and bag removed. area cleansed. rt side of stoma skin reddened with induration, stoma appears to be retracting. periwound area cleansed with warm, soapy water, rinsed. dried. stoma powder applied to reddened, indurated area. skin prep applied over. large lito ring applied close to stoma, smaller lito ring applied to right outer stoma area that retracts. large lito ring applied over both previous rings. Convex wafer applied with slight pressure applied to skin at edge of stoma for producing protraction. upper, left and lower sides protracting well, right side continues to retract. bag applied to wafer. Education given throughout. Ostomy education video shared with patient. will con't to monitor.
--- NOTE | 2020-03-05 09:20 | NUR ---
FAUCET POLISHER IN ROOM CHANGING ILEOSTOMY WAFER AND BAG. Addendum: 03/05/20 at 1312 by LYUBOV PAINTER RN FAUCET POLISHER ALSO CHANGED MID ABDOMINAL DRESSING.
--- NOTE | 2020-03-05 11:04 | Physical Therapy Daily Note ---
PT Daily Note-Current Subjective Pt laying Supine in bed with Wound Care Nurse upon arrival. WC Nurse reviewing care for ILEO. bag. Pain Location: No Pain Reported Mental Status Patient Orientation: Person, Place, Situation Attachments: Colostomy/Ileostomy, Other-See Comments (Telemetry) Transfers SCALE: Activities may be completed with or without assistive devices. 5-Oojntncrfd-hldgfuu completes the activity by him/herself with no assistance from a helper. 5-Set-up or Clean-up Assistance-helper sets up or cleans up; patient completes activity. [place] assists only prior to or following the activity. 4-Supervision or Touching Assistance-helper provides verbal cues and/or touching/steadying and/or contact guard assistance as patient completes activity. Assistance may be provided throughout the activity or intermittently. 3-Partial/Moderate Assistance-helper does LESS THAN HALF the effort. [place] lifts, holds or supports trunk or limbs, but provides less than half the effort. 2-Substantial/Maximal Assistance-helper does MORE THAN HALF the effort. [place] lifts or holds trunk or limbs and provides more than half the effort. 3-Qubmkprzj-hggmdv does ALL the effort. Patient does none of the effort to complete the activity. Or, the assistance of 2 or more helpers is required for the patient to complete the activity. If activity was not attempted, code reason: 7-Patient Refused. 9-Not Applicable-not attempted and the patient did not perform the activity before the current illness, exacerbation or injury. 10-Not Attempted due to Environmental Limitations-(lack of equipment, weather restraints, etc.). 88-Not Attempted due to Medical Conditions or Safety Concerns. Lying to Sitting/Side of Bed(Q: 5 Sit to Stand (QC): 5 Weight Bearing Right Lower Extremity: Right Full Weight Bearing Left Lower Extremity: Left Full Weight Bearing Gait Training Does the Patient Walk?: Yes Distance: 150' x2 Walk 10 feet (QC): 5 Walk 50 ft with 2 Turns(QC): 5 Walk 150 ft (QC): 5 Gait Persons Needed: 1 Gait Assistive Device: FWW Wheelchair Training Does the Pt Use a Wheelchair?: No Exercises Supine Ex: Ankle pumps, Rolling, Hip abd/add Supine Reps: 10 NuStep Minutes: 10 NuStep Workload: 3 Treatments WC Nurse finishes reviewing care for ILEO. bag. TF to EOB then to standing. Amb in hallway followed by short RB. Pt uses NuStep for 10m at WL 3 then short RB. Amb. in hallway before returning to room to rest Supine in bed. Assessment Current Status: Good Progress Pt fatigues and needs occasional RB. Pt is encouraged to widen NANDA & point toes forward instead of out. PT Short Term Goals Short Term Goals Time Frame: Mar 06, 2020 Roll Left & Right: 6 Sit to lyin Lying to sitting on side of be: 6 Sit to stand: 6 Chair/azc-wl-pmovu transfer: 5 4 steps: 4 Picking up objects: 4 PT Snf Goals Organ Fixer Goals PT Snf Goals Time Frame: Mar 13, 2020 Roll Left & Right (QC): 6 Sit to Lying (QC): 6 Lying-Sitting on Side/Bed(QC): 6 Sit to Stand (QC): 6 Chair/Mim-hj-Mopkd Xfer(QC): 6 Toilet Transfer (QC): 6 Car Transfer (QC): 6 Does the Patient Walk: Yes Walk 10 feet (QC): 6 Walk 50ft with 2 Turns (QC): 6 Walk 150 ft (QC): 6 Walking 10ft on Uneven Surface: 6 1 Step (curb) (QC): 6 4 Steps (QC): 6 12 Steps (QC): 6 Picking up an Object (QC): 6 Does the Pt use WC or Scooter?: No Wheel 50 feet with 2 turns (QC: 9 Wheel 150 feet: 9 PT Plan Problem List Problem List: Activity Tolerance, Functional Strength Treatment/Plan Treatment Plan: Continue Plan of Care Treatment Plan: Bed Mobility, Education, Functional Activity Maikel, Functional Strength, Group Therapy, Gait, Safety, Therapeutic Exercise, Transfers Treatment Duration: Mar 13, 2020 Frequency: At least 5 of 7 days/Wk (IRF) Estimated Hrs Per Day: 1.5 hours per day Patient and/or Family Agrees t: Yes Safety Risks/Education Patient Education: Gait Training, Correct Positioning, Safety Issues Teaching Recipient: Patient Teaching Methods: Discussion Response to Teaching: Verbalize Understanding Time/GCodes Time In: 1000 Time Out: 1100 Total Billed Treatment Time: 60 Total Billed Treatment 1, FA (15m), GT (15m), EX x2 (30m) ASHWIN MACKENZIE EVP OPERATIONS Mar 05, 2020 11:04
--- NOTE | 2020-03-05 11:09 | Occupational Ther Daily Note ---
OT Current Status-Daily Note Subjective Pt was in bed upon arrival. Pt stated colostomy bag was leaking. Pt no c/o pain. Pt agreed to therapy. Mental Status/Objective Patient Orientation: Person, Place, Time, Situation Attachments: Colostomy/Ileostomy, IV, Telemetry ADL-Treatment Pt ambulated using FWW to bathroom. Pt used grab bars to stabilize while getting onto toilet by self. Pt used grab bars to stabilize while standing to cleanse perineal area. Pt ambulated back to bed, needing rest break. Pt colostomy bag was leaking nursing was notified. Pt was educated on colostomy bag care and how to change own bag out. Pt sat on EOB to demonstrating ability to complete colostomy bag care with verbal directions and cues. Pt took increase time due to education throughout treatment. Nursing was in when finished with therapy. Call light/phone in reach. All needs met. Therapy Code Descriptions/Definitions Functional [place] Measure: 0=Not Assessed/NA 4=Minimal Assistance 1=Total Assistance 5=Supervision or Setup 2=Maximal Assistance 6=Modified [place] 3=Moderate Assistance 7=Complete IndependenceSCALE: Activities may be completed with or without assistive devices. 9-Odyiqkyive-vhaupdz completes the activity by him/herself with no assistance from a helper. 5-Set-up or Clean-up Assistance-helper sets up or cleans up; patient completes activity. [place] assists only prior to or following the activity. 4-Supervision or Touching Assistance-helper provides verbal cues and/or touching/steadying and/or contact guard assistance as patient completes activity. Assistance may be provided throughout the activity or intermittently. 3-Partial/Moderate Assistance-helper does LESS THAN HALF the effort. [place] lifts, holds or supports trunk or limbs, but provides less than half the effort. 2-Substantial/Maximal Assistance-helper does MORE THAN HALF the effort. [place] lifts or holds trunk or limbs and provides more than half the effort. 4-Nwbnbwpbm-wckuja does ALL the effort. Patient does none of the effort to complete the activity. Or, the assistance of 2 or more helpers is required for the patient to complete the activity. If activity was not attempted, code reason: 7-Patient Refused. 9-Not Applicable-not attempted and the patient did not perform the activity before the current illness, exacerbation or injury. 10-Not Attempted due to Environmental Limitations-(lack of equipment, weather restraints, etc.). 88-Not Attempted due to Medical Conditions or Safety Concerns. Toileting Hygiene (QC): 3 Toilet Transfer (QC): 6 Education OT Patient Education: Modified ADL techniques Teaching Recipient: Patient Teaching Methods: Demonstration, Discussion Response to Teaching: Verbalize Understanding, Return Demonstration, Reinforcement Needed OT Short Term Goals Short Term Goals Time Frame: Mar 06, 2020 Lower body dressin Putting on/taking off footwear: 6 OT Hotel Supplies Salesperson Goals Hotel Supplies Salesperson Goals Time Frame: Mar 13, 2020 Eating (QC): 6 Oral Hygiene (QC): 6 Toileting Hygiene (QC): 6 Shower/Bathe Self (QC): 6 Upper Body Dressing (QC): 6 Lower Body Dressing (QC): 6 On/Off Footwear (QC): 6 Demonstrate ability to change colonoscopy bag with s/u-IND. Additional Goals: 1-Demonstrate ADL Tasks, 2-Verbalize Understanding, 3- ImproveStrength/Maikel 1=Demonstrate adherence to instructed precautions during ADL tasks. 2=Patient will verbalize/demonstrate understanding of assistive devices/modifications for ADL. 3=Patient will improve strength/tolerance for activity to enable patient to perform ADL's. OT Education/Plan Problem List/Assessment Assessment: Decreased Activ Tolerance Discharge Recommendations Plan/Recommendations: Continue POC Treatment Plan/Plan of Care Patient would benefit from OT for education, treatment and training to promote independence in ADL's, mobility, safety and/or upper extremity function for ADL's. Plan of Care: ADL Retraining, Functional Mobility, Group Exercise/Act as Ind, UE Funct Exercise/Act, UE Neuromus Re-Ed/Coord Treatment Duration: Mar 13, 2020 Frequency: At least 5 of 7 days/Wk (IRF) Estimated Hrs Per Day: 1.5 hours per day Agreement: Yes Rehab Potential: Good Time/GCodes Start Time: 09:00 Stop Time: 10:00 Total Time Billed (hr/min): 60 Billed Treatment Time 1 visit- ADL (20 mins), FA 3 (40 mins) ELIZABETH BUTLER Mar 05, 2020 11:09
--- NOTE | 2020-03-05 12:03 | Occupational Ther Daily Note ---
OT Current Status-Daily Note Subjective Pt was in bed. Pt no c/o pain. Pt agreed to therapy. Mental Status/Objective Patient Orientation: Person, Place, Time, Situation Attachments: Colostomy/Ileostomy, IV, Telemetry ADL-Treatment Pt agreed to taking sponge bath. Pt ambulated to recliner using FWW. Pt washed upper/lower body with set up. Pt sit to stand using FWW to stabilize while standing to cleanse buttocks, perineal area. Pt ambulated to restroom to perform oral care, brushing hair, rest break due to fatigue. Pt ambulated to recliner using FWW call light/phone in reach. All needs met. Therapy Code Descriptions/Definitions Functional [place] Measure: 0=Not Assessed/NA 4=Minimal Assistance 1=Total Assistance 5=Supervision or Setup 2=Maximal Assistance 6=Modified [place] 3=Moderate Assistance 7=Complete IndependenceSCALE: Activities may be completed with or without assistive devices. 8-Guhplmlbng-iormcyj completes the activity by him/herself with no assistance from a helper. 5-Set-up or Clean-up Assistance-helper sets up or cleans up; patient completes activity. [place] assists only prior to or following the activity. 4-Supervision or Touching Assistance-helper provides verbal cues and/or touching/steadying and/or contact guard assistance as patient completes activity. Assistance may be provided throughout the activity or intermittently. 3-Partial/Moderate Assistance-helper does LESS THAN HALF the effort. [place] lifts, holds or supports trunk or limbs, but provides less than half the effort. 2-Substantial/Maximal Assistance-helper does MORE THAN HALF the effort. [place] lifts or holds trunk or limbs and provides more than half the effort. 4-Vyhtbixcv-duwzlk does ALL the effort. Patient does none of the effort to complete the activity. Or, the assistance of 2 or more helpers is required for the patient to complete the activity. If activity was not attempted, code reason: 7-Patient Refused. 9-Not Applicable-not attempted and the patient did not perform the activity before the current illness, exacerbation or injury. 10-Not Attempted due to Environmental Limitations-(lack of equipment, weather restraints, etc.). 88-Not Attempted due to Medical Conditions or Safety Concerns. Oral Hygiene (QC): 6 Bathing Location: L Arm, R Arm, L Upper Leg, R Upper Leg, L Lower Leg (including foot), R Lower Leg (including foot), Chest, Abdomen, Buttocks, Perineal Area Shower/Bathe Self (QC): 5 OT Short Term Goals Short Term Goals Time Frame: Mar 06, 2020 Lower body dressin Putting on/taking off footwear: 6 OT Filament Wound Parts Fabricator Goals [facility] Goals Time Frame: Mar 13, 2020 Eating (QC): 6 Oral Hygiene (QC): 6 Toileting Hygiene (QC): 6 Shower/Bathe Self (QC): 6 Upper Body Dressing (QC): 6 Lower Body Dressing (QC): 6 On/Off Footwear (QC): 6 Demonstrate ability to change colonoscopy bag with s/u-IND. Additional Goals: 1-Demonstrate ADL Tasks, 2-Verbalize Understanding, 3- ImproveStrength/Maikel 1=Demonstrate adherence to instructed precautions during ADL tasks. 2=Patient will verbalize/demonstrate understanding of assistive devices/modifications for ADL. 3=Patient will improve strength/tolerance for activity to enable patient to perform ADL's. OT Education/Plan Problem List/Assessment Assessment: Decreased Activ Tolerance, Decreased UE Strength, Impaired Funct Balance, Impaired Self-Care Skills Discharge Recommendations Plan/Recommendations: Continue POC Treatment Plan/Plan of Care Patient would benefit from OT for education, treatment and training to promote independence in ADL's, mobility, safety and/or upper extremity function for ADL's. Plan of Care: ADL Retraining, Functional Mobility, Group Exercise/Act as Ind, UE Funct Exercise/Act, UE Neuromus Re-Ed/Coord Treatment Duration: Mar 13, 2020 Frequency: At least 5 of 7 days/Wk (IRF) Estimated Hrs Per Day: 1.5 hours per day Agreement: Yes Rehab Potential: Good Time/GCodes Start Time: 11:30 Stop Time: 12:00 Total Time Billed (hr/min): 30 Billed Treatment Time 1 visit- ADL 2 (30 mins) ELIZABETH BUTLER Mar 05, 2020 12:03
--- NOTE | 2020-03-05 13:33 | Physical Therapy Daily Note ---
PT Daily Note-Current Subjective Pt in BR upon arrival. Pt agrees to PT. Pain Numeric Pain Scale: 2 Location: Right Location Body Site: Knee Pain Description: Ache Mental Status Patient Orientation: Person, Place, Time, Situation Attachments: Colostomy/Ileostomy Transfers SCALE: Activities may be completed with or without assistive devices. 7-Cklodafvma-zbaylro completes the activity by him/herself with no assistance from a helper. 5-Set-up or Clean-up Assistance-helper sets up or cleans up; patient completes activity. [place] assists only prior to or following the activity. 4-Supervision or Touching Assistance-helper provides verbal cues and/or touching/steadying and/or contact guard assistance as patient completes activity. Assistance may be provided throughout the activity or intermittently. 3-Partial/Moderate Assistance-helper does LESS THAN HALF the effort. [place] lifts, holds or supports trunk or limbs, but provides less than half the effort. 2-Substantial/Maximal Assistance-helper does MORE THAN HALF the effort. [place] lifts or holds trunk or limbs and provides more than half the effort. 2-Vkvolfcoi-tigfio does ALL the effort. Patient does none of the effort to complete the activity. Or, the assistance of 2 or more helpers is required for the patient to complete the activity. If activity was not attempted, code reason: 7-Patient Refused. 9-Not Applicable-not attempted and the patient did not perform the activity before the current illness, exacerbation or injury. 10-Not Attempted due to Environmental Limitations-(lack of equipment, weather restraints, etc.). 88-Not Attempted due to Medical Conditions or Safety Concerns. Sit to Lying (QC): 5 Sit to Stand (QC): 5 Weight Bearing Right Lower Extremity: Right Full Weight Bearing Left Lower Extremity: Left Full Weight Bearing Exercises Supine Ex: Ankle pumps, Quad Set, Glut sets, Heel Slides, Straight leg raise, Hip abd/add Supine Reps: 20 Treatments Pt finishes using BR and returns to bed. TF to supine & completes Supine Ex. Pt resting with all needs met, call light in hand. Assessment Current Status: Good Progress Pt kristina. tx well. PT Short Term Goals Short Term Goals Time Frame: Mar 06, 2020 Roll Left & Right: 6 Sit to lyin Lying to sitting on side of be: 6 Sit to stand: 6 Chair/kdh-mp-petjf transfer: 5 4 steps: 4 Picking up objects: 4 PT Farmer General Goals Half-Way Goals PT Farmer General Goals Time Frame: Mar 13, 2020 Roll Left & Right (QC): 6 Sit to Lying (QC): 6 Lying-Sitting on Side/Bed(QC): 6 Sit to Stand (QC): 6 Chair/Etz-mi-Grrke Xfer(QC): 6 Toilet Transfer (QC): 6 Car Transfer (QC): 6 Does the Patient Walk: Yes Walk 10 feet (QC): 6 Walk 50ft with 2 Turns (QC): 6 Walk 150 ft (QC): 6 Walking 10ft on Uneven Surface: 6 1 Step (curb) (QC): 6 4 Steps (QC): 6 12 Steps (QC): 6 Picking up an Object (QC): 6 Does the Pt use WC or Scooter?: No Wheel 50 feet with 2 turns (QC: 9 Wheel 150 feet: 9 PT Plan Problem List Problem List: Activity Tolerance Treatment/Plan Treatment Plan: Continue Plan of Care Treatment Plan: Bed Mobility, Education, Functional Activity Maikel, Functional Strength, Group Therapy, Gait, Safety, Therapeutic Exercise, Transfers Treatment Duration: Mar 13, 2020 Frequency: At least 5 of 7 days/Wk (IRF) Estimated Hrs Per Day: 1.5 hours per day Patient and/or Family Agrees t: Yes Time/GCodes Time In: 1300 Time Out: 1330 Total Billed Treatment Time: 30 Total Billed Treatment 1, FA (10m) & EX (20m) ASHWIN MACKENZIE FRONTEND ENGINEER Mar 05, 2020 13:33
--- NOTE | 2020-03-05 13:46 | NUR ---
Discharge Planning/Care Team Conference Discussed care team conference with patient and team's recommendation to discharge home 03/10/2020. Patient is in agreement with discharge plan and is willing to accept home health care nursing, PT and OT at discharge. Discharge plan for 03/10/2020.
--- NOTE | 2020-03-05 15:26 | NUR ---
UP TO THE BR. PATIENT WAS ABLE TO EMPTY ILEOSTOMY BAG BY HERSELF.
[2020-03-05 17:01] VITALS: BP 121/64
--- NOTE | 2020-03-05 17:49 | NUR ---
CALL FROM DR. BAUTISTA WITH ORDERS TO CHANGE ABDOMINAL WOUND DRESSING CHANGE ORDERS TO FOLLOWS- PACK WOUND WITH GAUZE MOISTENED WITH DAKIN'S SOLUTION, COVER WITH ABD PAD, SECURE WITH MEDIPORE TAPE. CHANGE Q SHIFT!
[2020-03-05] MEDS: MELATONIN 3 MG TABLET PO PRN (20:41)
[2020-03-05] MEDS: DAKIN'S FULL STRENGTH (0.5%) 480 ML BTL TOP SCH (20:52)
[2020-03-06 05:57] VITALS: BP 116/54
[2020-03-06] MEDS: inSUlin ASPART (NovoLOG) 1 UNIT/0.01 ML (CHARGE PER UNIT) SC SCH ×4 (06:03→20:59)
[2020-03-06] MEDS: ENOXAPARIN 40 MG/0.4 ML (LOVENOX) SYR SC SCH (06:15)
[2020-03-06] MEDS: ASCORBIC ACID (VIT C) 500 MG TABLET PO SCH (06:15)
[2020-03-06] MEDS: MULTIVIT W/MINERALS TAB (THERAGRAN M) PO SCH (06:15)
--- NOTE | 2020-03-06 07:10 | PM&R Progress Note ---
Subjective HPI/CC On Admission Date Seen by Provider: Mar 06, 2020 Time Seen by Provider: 11:45 Subjective/Events-last exam 03/06/20: Pt doing pretty well Ostomy stays in placed with inverted waver Overall doing pretty well otherwise 03/05/20: Ileostomy functioning well Dominique is trying an inverted wafer to prevent bag from falling off Pain controlled 03/04/20: Discharge is planned on 03/10 Wound care seeing her Redness around the stoma will be addressed Changing laxatives to prn 03/03/20: Pt doing very well Dr. Jasso saw the wound and it is healing well Overall seems to be doing very well DC planned soon 03/02/20: Hgb 10.1 Will discontinue Benadryl and will take Claritin instead Only has one kidney, she is very particular about medications Isolation was discontinued because C-Diff was negative again Bowels are moving through the ileostomy 03/01/20: C diff second specimen sent to lab Pain pill given today and it helped Lovenox maintained No OAC recommended Dr Gaviria appreciated Patient doing well C diff negative and will recheck tomorrow then DC isolation BM today Dr Jasso consulted for wound care of abdomen WBC 11 Dr Gaviria consulted for AF and OAC question Checked meds and labs Conferred with RN Reviewed therapy notes Review of Systems Gastrointestinal: Abdominal Pain Objective Exam Vital Signs Vital Signs Date Time Temp Pulse Resp B/P (MAP) Pulse Ox O2 Delivery O2 Flow Rate FiO2 03/07/20 05:15 36.4 58 18 154/65 (94) 98 Room Air 03/01/20 21:15 96.00 Capillary Refill : Less Than 3 Seconds General Appearance: No Apparent Distress, WD/WN, Chronically ill HEENT: PERRL/EOMI, Normal ENT Inspection, Pharynx Normal Neck: Full Range of Motion, Normal Inspection, Non Tender, Supple, Carotid Bruit Respiratory: Chest Non Tender, Lungs Clear, Normal Breath Sounds, No Accessory Muscle Use, No Respiratory Distress Cardiovascular: Regular Rate, Rhythm, No Edema, No Gallop, No JVD, No Murmur, Normal Peripheral Pulses Gastrointestinal: Normal Bowel Sounds, No Organomegaly, No Pulsatile Mass, Non Tender, Soft Back: Normal Inspection, No CVA Tenderness, No Vertebral Tenderness Extremity: Normal Capillary Refill, Normal Inspection, Normal Range of Motion, Non Tender, No Calf Tenderness, No Pedal Edema Neurologic/Psychiatric: Alert, Oriented x3, No Motor/Sensory Deficits, 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, Abnormal Gait, Motor Weakness (generalized) Skin: Normal Color, Warm/Dry Lymphatic: No Adenopathy Results/Procedures Lab Patient resulted labs reviewed. FIM Transfers Therapy Code Descriptions/Definitions Functional [place] Measure: 0=Not Assessed/NA 4=Minimal Assistance 1=Total Assistance 5=Supervision or Setup 2=Maximal Assistance 6=Modified [place] 3=Moderate Assistance 7=Complete IndependenceSCALE: Activities may be completed with or without assistive devices. 2-Siullbeunj-ndhzbqk completes the activity by him/herself with no assistance from a helper. 5-Set-up or Clean-up Assistance-helper sets up or cleans up; patient completes activity. [place] assists only prior to or following the activity. 4-Supervision or Touching Assistance-helper provides verbal cues and/or touching/steadying and/or contact guard assistance as patient completes activity. Assistance may be provided throughout the activity or intermittently. 3-Partial/Moderate Assistance-helper does LESS THAN HALF the effort. [place] lifts, holds or supports trunk or limbs, but provides less than half the effort. 2-Substantial/Maximal Assistance-helper does MORE THAN HALF the effort. [place] lifts or holds trunk or limbs and provides more than half the effort. 9-Jolvpdpob-yhnamb does ALL the effort. Patient does none of the effort to complete the activity. Or, the assistance of 2 or more helpers is required for the patient to complete the activity. If activity was not attempted, code reason: 7-Patient Refused. 9-Not Applicable-not attempted and the patient did not perform the activity before the current illness, exacerbation or injury. 10-Not Attempted due to Environmental Limitations-(lack of equipment, weather restraints, etc.). 88-Not Attempted due to Medical Conditions or Safety Concerns. Roll Left to Right (QC): 6 Sit to Lying (QC): 5 Sit to Stand (QC): 5 Chair/Cix-br-Lcgtw Xfer(QC): 5 Car Transfer (QC): 4 Gait Training Does the Patient Walk?: Yes Distance: 150' x2 Walk 10 feet (QC): 5 Walk 50 ft with 2 Turns(QC): 5 Walk 150 ft (QC): 5 Walking 10ft/uneven surface-QC: 4 Gait Persons Needed: 1 Gait Assistive Device: FWW Wheelchair Training Does the Pt Use a Wheelchair?: No Wheel 50 ft with 2 turns (QC): 9 Wheel 150 ft (QC): 9 Stair Training #of Steps: 1 1 Step (curb) (QC): 4 4 Steps (QC): 88 12 Steps (QC): 88 Balance Picking up an Object (QC): 88 ADL-Treatment Eating (QC): 6 (drinks with IND. per clinical judgment pt is IND with eating tasks.) Oral Hygiene (QC): 6 Bathing Location: L Arm, R Arm, L Upper Leg, R Upper Leg, L Lower Leg (including foot), R Lower Leg (including foot), Chest, Abdomen, Buttocks, Perineal Area Shower/Bathe Self (QC): 5 Upper Body Dressing (QC): 5 Lower Body Dressing (QC): 5 On/Off Footwear (QC): 5 Toileting Hygiene (QC): 3 Toilet Transfer (QC): 6 Assessment/Plan Assessment and Plan Assess & Plan/Chief Complaint Assessment: Myopathy AF w/RVR s/p cardioversion Hypothyroidism C diff colitis hx Ovarian cancer hx DM HTN Solitary kidney Plan: Home meds IRF protocol Insulin Monitor stools 02/29/20: Monitor loose stools OAC question? Dr Gaviria consult 03/01/20: Monitor pain C diff last specimen sent to lab Dr Gaviria appreciated 03/02/20: Take out of isolation since C.diff negative Monitor bowel function Pain control 03/03/20: Pain control Lovenox IRF protocol 03/04/20: Laxatives prn Monitor closely 03/05/20: Ileostomy bag ostomy care Pain meds 03/06/20: Ileostomy bag working well now Pain control (1) Myopathy (2) C. difficile colitis (3) Atrial fibrillation (4) History of cardioversion (5) Hypertension (6) Diabetes mellitus (7) Hypothyroidism (8) Solitary kidney (9) Ovarian cancer in remission (10) Ileostomy in place LORENZO MIMS DO Mar 06, 2020 07:10
--- NOTE | 2020-03-06 07:55 | Occupational Ther Daily Note ---
OT Current Status-Daily Note Subjective Pt alert, lying in bed. Pt agrees to therapy. No c/o pain at this time. Mental Status/Objective Patient Orientation: Person, Place, Time, Situation Attachments: Colostomy/Ileostomy, IV, Telemetry ADL-Treatment Pt declines shower. Pt declines to don regular clothing, stating that she is worried about her colostomy bag will leak and get her clothing dirty. Supine <--> EOB, independent. Ambulating to bathroom using FWW, independent. Transfer to toilet using FWW and grabbars, independent. Completing clothing manipulation, hygiene and emptying colostomy bag, independent using grabbar for stabilization when needed. Pt stood at sink to complete oral care, independently using counter to stabilize. Pt sat at sink, to complete sponge ba th independently. Pt ambulated with FWW to bed to don shoes/socks. Therapy Code Descriptions/Definitions Functional [place] Measure: 0=Not Assessed/NA 4=Minimal Assistance 1=Total Assistance 5=Supervision or Setup 2=Maximal Assistance 6=Modified [place] 3=Moderate Assistance 7=Complete IndependenceSCALE: Activities may be completed with or without assistive devices. 5-Uqzfbewoen-wnpxkgr completes the activity by him/herself with no assistance from a helper. 5-Set-up or Clean-up Assistance-helper sets up or cleans up; patient completes activity. [place] assists only prior to or following the activity. 4-Supervision or Touching Assistance-helper provides verbal cues and/or touching/steadying and/or contact guard assistance as patient completes activity. Assistance may be provided throughout the activity or intermittently. 3-Partial/Moderate Assistance-helper does LESS THAN HALF the effort. [place] lifts, holds or supports trunk or limbs, but provides less than half the effort. 2-Substantial/Maximal Assistance-helper does MORE THAN HALF the effort. [place] lifts or holds trunk or limbs and provides more than half the effort. 1-Ulomqktje-srfvsx does ALL the effort. Patient does none of the effort to complete the activity. Or, the assistance of 2 or more helpers is required for the patient to complete the activity. If activity was not attempted, code reason: 7-Patient Refused. 9-Not Applicable-not attempted and the patient did not perform the activity before the current illness, exacerbation or injury. 10-Not Attempted due to Environmental Limitations-(lack of equipment, weather restraints, etc.). 88-Not Attempted due to Medical Conditions or Safety Concerns. Oral Hygiene (QC): 6 Shower/Bathe Self (QC): 5 Upper Body Dressing (QC): 5 Lower Body Dressing (QC): 5 On/Off Footwear: 6 Toileting Hygiene (QC): 6 Toilet Transfer (QC): 6 Other Treatment Pt used FWW to ambulate to therapy gym. Arm bike completed for 14 minutes with no resistance to increase activity tolerance for daily functional tasks. Pt required multiple recovery breaks during arm bike exercise. Pt completed 1 min stands 2x's during arm bike exercise. Pt played memory game while performing arm bike to work on cognition giving verbal cues back of understanding, p articipation. Pt ambulated back to room using FWW. Pt in bed call light/phone in reach. All needs met. OT Short Term Goals Short Term Goals Time Frame: Mar 06, 2020 Lower body dressin Putting on/taking off footwear: 6 OT Residential Goals Coal Trimmer Machine Operator Goals Time Frame: Mar 13, 2020 Eating (QC): 6 Oral Hygiene (QC): 6 Toileting Hygiene (QC): 6 Shower/Bathe Self (QC): 6 Upper Body Dressing (QC): 6 Lower Body Dressing (QC): 6 On/Off Footwear (QC): 6 Demonstrate ability to change colonoscopy bag with s/u-IND. Additional Goals: 1-Demonstrate ADL Tasks, 2-Verbalize Understanding, 3-Imp roveStrength/Maikel 1=Demonstrate adherence to instructed precautions during ADL tasks. 2=Patient will verbalize/demonstrate understanding of assistive devices/modifications for ADL. 3=Patient will improve strength/tolerance for activity to enable patient to perform ADL's. OT Education/Plan Problem List/Assessment Assessment: Decreased Activ Tolerance, Decreased UE Strength, Impaired Self- Care Skills Discharge Recommendations Plan/Recommendations: Continue POC Treatment Plan/Plan of Care Patient would benefit from OT for education, treatment and training to promote independence in ADL's, mobility, safety and/or upper extremity function for ADL's. Plan of Care: ADL Retraining, Functional Mobility, Group Exercise/Act as Ind, UE Funct Exercise/Act, UE Neuromus Re-Ed/Coord Treatment Duration: Mar 13, 2020 Frequency: At least 5 of 7 days/Wk (IRF) Estimated Hrs Per Day: 1.5 hours per day Agreement: Yes Rehab Potential: Good Time/GCodes Start Time: 07:30 Stop Time: 09:00 Total Time Billed (hr/min): 90 Billed Treatment Time 1 visit- ADL 3 (40 mins), EX 2 (30mins), FA (20mins) ELIZABETH BUTLER Mar 06, 2020 07:55
[2020-03-06] MEDS: amLODIPine 10 MG (NORVASC) TAB PO SCH (07:58)
[2020-03-06] MEDS: CARVEDILOL 12.5 MG (COREG) TABLET PO SCH ×2 (07:59→20:56)
[2020-03-06] MEDS: ASPIRIN 81 MG CHEW (CHILDREN'S ASA) PO SCH (08:00)
[2020-03-06] MEDS: DOCUSATE SODIUM 100 MG (COLACE) CAP PO SCH (08:00)
[2020-03-06] MEDS: SIMETHICONE 80 MG (MYLICON) CHEW PO SCH ×3 (08:00→20:57)
[2020-03-06] MEDS: AMIODARONE 200 MG (CORDARONE) TAB PO SCH ×2 (08:00→20:57)
[2020-03-06] MEDS: LORATADINE (CLARITIN) 10 MG TAB PO SCH (08:00)
[2020-03-06] MEDS: DAKIN'S FULL STRENGTH (0.5%) 480 ML BTL TOP SCH ×2 (08:09→21:01)
[2020-03-06] MEDS: polyethylene glycoL POWDER 17 GM (MIRALAX) PACK PO SCH (09:34)
[2020-03-06] MEDS: SENNA W/DOCUSATE (SENOKOT S) TABLET PO SCH (09:34)
[2020-03-06] MEDS: GENTAMICIN SULFATE TP SCH (09:35)
--- NOTE | 2020-03-06 11:07 | Physical Therapy Daily Note ---
PT Daily Note-Current Subjective Pt. feels better and hopes to go home Tues. Wants to try steps in the afternoon. Pt. comments on her left foot/toe sticking to the floor as she walks , this was previous to this admit. Pain Location: No Pain Reported Appearance noted that Left foot in foot drop and right is also at nuetral and does not DF past that, Mental Status Patient Orientation: Normal For Age Attachments: Other-See Comments (mask while out of room) Transfers SCALE: Activities may be completed with or without assistive devices. 5-Ijovzhbenz-tgevfal completes the activity by him/herself with no assistance from a helper. 5-Set-up or Clean-up Assistance-helper sets up or cleans up; patient completes activity. [place] assists only prior to or following the activity. 4-Supervision or Touching Assistance-helper provides verbal cues and/or touching/steadying and/or contact guard assistance as patient completes activity. Assistance may be provided throughout the activity or intermittently. 3-Partial/Moderate Assistance-helper does LESS THAN HALF the effort. [place] lifts, holds or supports trunk or limbs, but provides less than half the effort. 2-Substantial/Maximal Assistance-helper does MORE THAN HALF the effort. [place] lifts or holds trunk or limbs and provides more than half the effort. 5-Neuxvynqz-gyceri does ALL the effort. Patient does none of the effort to complete the activity. Or, the assistance of 2 or more helpers is required for the patient to complete the activity. If activity was not attempted, code reason: 7-Patient Refused. 9-Not Applicable-not attempted and the patient did not perform the activity before the current illness, exacerbation or injury. 10-Not Attempted due to Environmental Limitations-(lack of equipment, weather restraints, etc.). 88-Not Attempted due to Medical Conditions or Safety Concerns. Roll Left & Right (QC): 6 Sit to Lying (QC): 6 Lying to Sitting/Side of Bed(Q: 6 Sit to Stand (QC): 6 Chair/Xdq-km-Cxvyb Xfer(QC): 6 Toilet Transfer (QC): 6 Weight Bearing Right Lower Extremity: Right Full Weight Bearing Left Lower Extremity: Left Full Weight Bearing Gait Training Does the Patient Walk?: Yes Walk 10 feet (QC): 6 Walk 50 ft with 2 Turns(QC): 6 Walk 150 ft (QC): 6 Gait Persons Needed: 1 Wheelchair Training Does the Pt Use a Wheelchair?: No Exercises Supine Ex: Bridging, Ankle pumps, Quad Set, Rolling, Glut sets, Heel Slides, Short Arc Quads, Scooting, Straight leg raise, Hip abd/add Supine Reps: 15 Seated Therapy Exercises: Ankle pumps, Sit to stand, Long arc quads, Hip flexion, Hip abd/add Seated Reps: 15 Pt. educated in use of gait belt for HC stretching in supine and sit position 1 sec hold x 5. passive HC stretches done by this EMERGENCY DEPARTMENT COORDINATOR as well as pt. stretches with gait belt, improved after NuStep Minutes: 8 NuStep Workload: 2 Assessment Current Status: Good Progress pt. c/o discomfort of wearing mask, much of Rx done in room PT Short Term Goals Short Term Goals Time Frame: Mar 06, 2020 Roll Left & Right: 6 Sit to lyin Lying to sitting on side of be: 6 Sit to stand: 6 Chair/tgt-hh-gmcyc transfer: 5 4 steps: 4 Picking up objects: 4 PT Jail Goals Jail Goals PT Jail Goals Time Frame: Mar 13, 2020 Roll Left & Right (QC): 6 Sit to Lying (QC): 6 Lying-Sitting on Side/Bed(QC): 6 Sit to Stand (QC): 6 Chair/Hra-ma-Ytsag Xfer(QC): 6 Toilet Transfer (QC): 6 Car Transfer (QC): 6 Does the Patient Walk: Yes Walk 10 feet (QC): 6 Walk 50ft with 2 Turns (QC): 6 Walk 150 ft (QC): 6 Walking 10ft on Uneven Surface: 6 1 Step (curb) (QC): 6 4 Steps (QC): 6 12 Steps (QC): 6 Picking up an Object (QC): 6 Does the Pt use WC or Scooter?: No Wheel 50 feet with 2 turns (QC: 9 Wheel 150 feet: 9 PT Plan Treatment/Plan Treatment Plan: Continue Plan of Care Treatment Plan: Bed Mobility, Education, Functional Activity Maikel, Functional Strength, Group Therapy, Gait, Safety, Therapeutic Exercise, Transfers Treatment Duration: Mar 13, 2020 Frequency: At least 5 of 7 days/Wk (IRF) Estimated Hrs Per Day: 1.5 hours per day Patient and/or Family Agrees t: Yes Safety Risks/Education Patient Education: Gait Training, Transfer Techniques, Correct Positioning, Disease Process, Safety Issues Teaching Recipient: Patient Teaching Methods: Demonstration, Discussion Response to Teaching: Verbalize Understanding, Return Demonstration, Reinforcement Needed Time/GCodes Time In: 900 Time Out: 1000 Total Billed Treatment Time: 60 Total Billed Treatment 1,EX35m,GT25m DANNI AUGUSTINE EMERGENCY DEPARTMENT COORDINATOR Mar 06, 2020 11:07
--- NOTE | 2020-03-06 14:14 | Physical Therapy Daily Note ---
PT Daily Note-Current Subjective Agrees to Rx. Pain Location: No Pain Reported Mental Status Patient Orientation: Normal For Age Attachments: Other-See Comments (mask while out of room, telemetry) Transfers SCALE: Activities may be completed with or without assistive devices. 9-Shapcbyybl-bnvrkzs completes the activity by him/herself with no assistance from a helper. 5-Set-up or Clean-up Assistance-helper sets up or cleans up; patient completes activity. [place] assists only prior to or following the activity. 4-Supervision or Touching Assistance-helper provides verbal cues and/or touc [place]/steadying and/or contact guard assistance as patient completes activity. Assistance may be provided throughout the activity or intermittently. 3-Partial/Moderate Assistance-helper does LESS THAN HALF the effort. [place] lifts, holds or supports trunk or limbs, but provides less than half the effort. 2-Substantial/Maximal Assistance-helper does MORE THAN HALF the effort. [place] lifts or holds trunk or limbs and provides more than half the effort. 2-Iyzbbetsr-chvalm does ALL the effort. Patient does none of the effort to complete the activity. Or, the assistance of 2 or more helpers is required for the patient to complete the activity. If activity was not attempted, code reason: 7-Patient Refused. 9-Not Applicable-not attempted and the patient did not perform the activity before the current illness, exacerbation or injury. 10-Not Attempted due to Environmental Limitations-(lack of equipment, weather restraints, etc.). 88-Not Attempted due to Medical Conditions or Safety Concerns. in out bed and chair all indep Weight Bearing Right Lower Extremity: Right Full Weight Bearing Left Lower Extremity: Left Full Weight Bearing Gait Training Gait Assistive Device: FWW 175ft x 2 FWW CGA to SBA, better DF noted Stair Training Stair Training: Handrails/: 2 handrails #of Steps: 4 4 Steps (QC): 4 Stairs: Pattern: Step to instructed in sequence with no LOB or incident Exercises Standing: Hip Abduction, Hamstring curls, Heel/toe raises, Marching, Mini squats Standing Reps: 15 Assessment Current Status: Good Progress PT Short Term Goals Short Term Goals Time Frame: Mar 06, 2020 Roll Left & Right: 6 Sit to lyin Lying to sitting on side of be: 6 Sit to stand: 6 Chair/saf-wo-scvnp transfer: 5 4 steps: 4 Picking up objects: 4 PT Director Of Operations Goals [facility] Goals PT Director Of Operations Goals Time Frame: Mar 13, 2020 Roll Left & Right (QC): 6 Sit to Lying (QC): 6 Lying-Sitting on Side/Bed(QC): 6 Sit to Stand (QC): 6 Chair/Wtx-rl-Enpyj Xfer(QC): 6 Toilet Transfer (QC): 6 Car Transfer (QC): 6 Does the Patient Walk: Yes Walk 10 feet (QC): 6 Walk 50ft with 2 Turns (QC): 6 Walk 150 ft (QC): 6 Walking 10ft on Uneven Surface: 6 1 Step (curb) (QC): 6 4 Steps (QC): 6 12 Steps (QC): 6 Picking up an Object (QC): 6 Does the Pt use WC or Scooter?: No Wheel 50 feet with 2 turns (QC: 9 Wheel 150 feet: 9 PT Plan Treatment/Plan Treatment Plan: Continue Plan of Care Treatment Plan: Bed Mobility, Education, Functional Activity Maikel, Functional Strength, Group Therapy, Gait, Safety, Therapeutic Exercise, Transfers Treatment Duration: Mar 13, 2020 Frequency: At least 5 of 7 days/Wk (IRF) Estimated Hrs Per Day: 1.5 hours per day Patient and/or Family Agrees t: Yes Safety Risks/Education Patient Education: Gait Training, Steps, Correct Positioning, Disease Process, Safety Issues Teaching Recipient: Patient Teaching Methods: Demonstration, Discussion Response to Teaching: Verbalize Understanding, Return Demonstration, Reinforcement Needed Time/GCodes Time In: 1340 Time Out: 1410 Total Billed Treatment Time: 30 Total Billed Treatment 1,FA15m,EX15m DANNI AUGUSTINE CORE DRILL OPERATOR Mar 06, 2020 14:14
[2020-03-06 15:57] VITALS: BP 113/71
--- NOTE | 2020-03-06 15:58 | NUR ---
ileostomy assessment today, covex wafer continues to hold in place without leaking. Patient accepting of her new dynamic, emptying and cleaning ostomy bag as needed. explained I will assist her in changing her wafer on Monday, so she will have some practice with that before going home on Monday. Patient voices, "I've been watching videos about this on my phone." I contacted [facility] to update patient's need for a convex wafer and adapt barrier rings to help seal ostomy contents away from skin. Message left for return call. Will reach out to [facility] on Monday again.
--- NOTE | 2020-03-06 19:12 | NUR ---
Bedside report received from SRIDHAR RANGEL, assume care of pt
[2020-03-06] MEDS ORDERED: DOCUSATE SODIUM 100 MG (COLACE) CAP PO PRN (19:30)
[2020-03-06] MEDS ORDERED: SENNA W/DOCUSATE (SENOKOT S) TABLET PO PRN (19:30)
[2020-03-06] MEDS ORDERED: polyethylene glycoL POWDER 17 GM (MIRALAX) PACK PO PRN (19:30)
[2020-03-06 20:50] VITALS: BP 135/78
[2020-03-06] MEDS: MELATONIN 3 MG TABLET PO PRN (20:57)
--- NOTE | 2020-03-06 20:57 | NUR ---
fsbs 155 no ss insulin req, refused dressing stated they did my dressing at 1700 today
--- NOTE | 2020-03-07 04:30 | NUR ---
C/O abd pain level 4/10 on numeric scale, ULTRAM 100mg given
[2020-03-07 05:15] VITALS: BP 154/65
--- NOTE | 2020-03-07 05:20 | NUR ---
resting quietly in bed, pain level 0/10 on CNPI scale
[2020-03-07] MEDS: inSUlin ASPART (NovoLOG) 1 UNIT/0.01 ML (CHARGE PER UNIT) SC SCH ×4 (06:00→21:00)
--- NOTE | 2020-03-07 06:18 | PM&R Progress Note ---
Subjective HPI/CC On Admission Date Seen by Provider: Mar 07, 2020 Time Seen by Provider: 10:15 Subjective/Events-last exam 03/07/20: Ostomy leaking so tried another technique. No pain reported Wondering what time she can go home Monday. Talked about low potassium diet. 03/06/20: Pt doing pretty well Ostomy stays in placed with inverted waver Overall doing pretty well otherwise 03/05/20: Ileostomy functioning well Dominique is trying an inverted wafer to prevent bag from falling off Pain controlled 03/04/20: Discharge is planned on 03/10 Wound care seeing her Redness around the stoma will be addressed Changing laxatives to prn 03/03/20: Pt doing very well Dr. Jasso saw the wound and it is healing well Overall seems to be doing very well DC planned soon 03/02/20: Hgb 10.1 Will discontinue Benadryl and will take Claritin instead Only has one kidney, she is very particular about medications Isolation was discontinued because C-Diff was negative again Bowels are moving through the ileostomy 03/01/20: C diff second specimen sent to lab Pain pill given today and it helped Lovenox maintained No OAC recommended Dr Gaviria appreciated Patient doing well C diff negative and will recheck tomorrow then DC isolation BM today Dr Jasso consulted for wound care of abdomen WBC 11 Dr Gaviria consulted for AF and OAC question Checked meds and labs Conferred with RN Reviewed therapy notes Review of Systems Gastrointestinal: Abdominal Pain Objective Exam Vital Signs Vital Signs Date Time Temp Pulse Resp B/P (MAP) Pulse Ox O2 Delivery O2 Flow Rate FiO2 03/07/20 12:27 57 03/07/20 09:00 Room Air 03/07/20 05:15 36.4 18 154/65 (94) 98 03/01/20 21:15 96.00 Capillary Refill : Less Than 3 Seconds General Appearance: No Apparent Distress, WD/WN, Chronically ill HEENT: PERRL/EOMI, Normal ENT Inspection, Pharynx Normal Neck: Full Range of Motion, Normal Inspection, Non Tender, Supple, Carotid Bruit Respiratory: Chest Non Tender, Lungs Clear, Normal Breath Sounds, No Accessory Muscle Use, No Respiratory Distress Cardiovascular: Regular Rate, Rhythm, No Edema, No Gallop, No JVD, No Murmur, Normal Peripheral Pulses Gastrointestinal: Normal Bowel Sounds, No Organomegaly, No Pulsatile Mass, Non Tender, Soft Back: Normal Inspection, No CVA Tenderness, No Vertebral Tenderness Extremity: Normal Capillary Refill, Normal Inspection, Normal Range of Motion, Non Tender, No Calf Tenderness, No Pedal Edema Neurologic/Psychiatric: Alert, Oriented x3, No Motor/Sensory Deficits, 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, Abnormal Gait, Motor Weakness (generalized) Skin: Normal Color, Warm/Dry Lymphatic: No Adenopathy Results/Procedures Lab Patient resulted labs reviewed. FIM Transfers Therapy Code Descriptions/Definitions Functional [place] Measure: 0=Not Assessed/NA 4=Minimal Assistance 1=Total Assistance 5=Supervision or Setup 2=Maximal Assistance 6=Modified [place] 3=Moderate Assistance 7=Complete IndependenceSCALE: Activities may be completed with or without assistive devices. 7-Isslfabkox-vgwfdbc completes the activity by him/herself with no assistance from a helper. 5-Set-up or Clean-up Assistance-helper sets up or cleans up; patient completes activity. Fitzgerald assists only prior to or following the activity. 4-Supervision or Touching Assistance-helper provides verbal cues and/or touching/steadying and/or contact guard assistance as patient completes activity. Assistance may be provided throughout the activity or intermittently. 3-Partial/Moderate Assistance-helper does LESS THAN HALF the effort. Fitzgerald lifts, holds or supports trunk or limbs, but provides less than half the effort. 2-Substantial/Maximal Assistance-helper does MORE THAN HALF the effort. Fitzgerald lifts or holds trunk or limbs and provides more than half the effort. 2-Bfapcbbho-jflmsr does ALL the effort. Patient does none of the effort to complete the activity. Or, the assistance of 2 or more helpers is required for the patient to complete the activity. If activity was not attempted, code reason: 7-Patient Refused. 9-Not Applicable-not attempted and the patient did not perform the activity before the current illness, exacerbation or injury. 10-Not Attempted due to Environmental Limitations-(lack of equipment, weather restraints, etc.). 88-Not Attempted due to Medical Conditions or Safety Concerns. Roll Left to Right (QC): 6 Sit to Lying (QC): 6 Sit to Stand (QC): 6 Chair/Ssi-wz-Olinv Xfer(QC): 6 Car Transfer (QC): 4 Gait Training Does the Patient Walk?: Yes Distance: 150' x2 Walk 10 feet (QC): 6 Walk 50 ft with 2 Turns(QC): 6 Walk 150 ft (QC): 6 Walking 10ft/uneven surface-QC: 4 Gait Persons Needed: 1 Gait Assistive Device: FWW Wheelchair Training Does the Pt Use a Wheelchair?: No Wheel 50 ft with 2 turns (QC): 9 Wheel 150 ft (QC): 9 Stair Training Stair Training: Handrails/: 2 handrails #of Steps: 4 1 Step (curb) (QC): 4 4 Steps (QC): 4 12 Steps (QC): 88 Stairs: Pattern: Step to Balance Picking up an Object (QC): 88 ADL-Treatment Eating (QC): 6 (drinks with IND. per clinical judgment pt is IND with eating tasks.) Oral Hygiene (QC): 6 Bathing Location: L Arm, R Arm, L Upper Leg, R Upper Leg, L Lower Leg (including foot), R Lower Leg (including foot), Chest, Abdomen, Buttocks, Perineal Area Shower/Bathe Self (QC): 5 Upper Body Dressing (QC): 5 Lower Body Dressing (QC): 5 On/Off Footwear (QC): 6 Toileting Hygiene (QC): 6 Toilet Transfer (QC): 6 Assessment/Plan Assessment and Plan Assess & Plan/Chief Complaint Assessment: Myopathy AF w/RVR s/p cardioversion Hypothyroidism C diff colitis hx Ovarian cancer hx DM HTN Solitary kidney Plan: Home meds IRF protocol Insulin Monitor stools 02/29/20: Monitor loose stools OAC question? Dr Gaviria consult 03/01/20: Monitor pain C diff last specimen sent to lab Dr Gaviria appreciated 03/02/20: Take out of isolation since C.diff negative Monitor bowel function Pain control 03/03/20: Pain control Lovenox IRF protocol 03/04/20: Laxatives prn Monitor closely 03/05/20: Ileostomy bag ostomy care Pain meds 03/06/20: Ileostomy bag working well now Pain control 03/07/20: Ostomy supplies to help stop leaking Monitor pain (1) Myopathy (2) C. 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
[2020-03-07] MEDS: MULTIVIT W/MINERALS TAB (THERAGRAN M) PO SCH (06:33)
[2020-03-07] MEDS: ENOXAPARIN 40 MG/0.4 ML (LOVENOX) SYR SC SCH (06:33)
[2020-03-07] MEDS: ASCORBIC ACID (VIT C) 500 MG TABLET PO SCH (06:33)
[2020-03-07] MEDS: ASPIRIN 81 MG CHEW (CHILDREN'S ASA) PO SCH (08:43)
[2020-03-07] MEDS: SIMETHICONE 80 MG (MYLICON) CHEW PO SCH ×3 (08:44→21:08)
[2020-03-07] MEDS: LORATADINE (CLARITIN) 10 MG TAB PO SCH (08:44)
[2020-03-07] MEDS: CARVEDILOL 12.5 MG (COREG) TABLET PO SCH ×2 (08:45→21:07)
[2020-03-07] MEDS: amLODIPine 10 MG (NORVASC) TAB PO SCH (08:45)
[2020-03-07] MEDS: AMIODARONE 200 MG (CORDARONE) TAB PO SCH ×2 (08:45→21:07)
--- NOTE | 2020-03-07 08:45 | NUR ---
Ostomy leaking. Patient voices ready for shower. Patient up to toilet and shower, uses walker with standby assist. While on toilet, patient empties ostomy bag with minimal assistance. IVs covered and sealed prior to showering. Assisted patient with removal of ostomy wafer, bag, & adhesive ring for cleaning. Previous incisional site and ostomy site left open for cleaning. Patient states she's happy with how well her incisional site is closing up. removal of convex ostomy wafer shows that stoma is beginning to push through and no longer retract. Patient does have large area to the right of the stoma where she has reddened skin irritation continuing from this morning's leak. Area cleansed thoroughly in shower with and pat dry by patient after. stoma powder applied with skin prep to seal, adhesive barriers X3 applied to build up seal around stoma. Convex wafer applied with slight pressure to seal area around stoma. List of steps shared per patient request.
[2020-03-07] MEDS: DAKIN'S FULL STRENGTH (0.5%) 480 ML BTL TOP SCH ×2 (08:48→21:13)
[2020-03-07] MEDS: GENTAMICIN SULFATE TP SCH (08:51)
--- NOTE | 2020-03-07 11:09 | Physical Therapy Daily Note ---
PT Daily Note-Current Subjective Pt agreeable. Pt denies pain, says she is going home Monday. Pt feels her (L) foot is getting a litte stronger since starting the DF ther ex and calf stretching. Mental Status Patient Orientation: Person, Place, Situation Transfers SCALE: Activities may be completed with or without assistive devices. 0-Sevtkklevp-izbbdsy completes the activity by him/herself with no assistance from a helper. 5-Set-up or Clean-up Assistance-helper sets up or cleans up; patient completes activity. [place] assists only prior to or following the activity. 4-Supervision or Touching Assistance-helper provides verbal cues and/or touching/steadying and/or contact guard assistance as patient completes activity. Assistance may be provided throughout the activity or intermittently. 3-Partial/Moderate Assistance-helper does LESS THAN HALF the effort. Braymer lifts, holds or supports trunk or limbs, but provides less than half the effort. 2-Substantial/Maximal Assistance-helper does MORE THAN HALF the effort. Braymer lifts or holds trunk or limbs and provides more than half the effort. 9-Kaccnridd-zzwjzy does ALL the effort. Patient does none of the effort to complete the activity. Or, the assistance of 2 or more helpers is required for the patient to complete the activity. If activity was not attempted, code reason: 7-Patient Refused. 9-Not Applicable-not attempted and the patient did not perform the activity before the current illness, exacerbation or injury. 10-Not Attempted due to Environmental Limitations-(lack of equipment, weather restraints, etc.). 88-Not Attempted due to Medical Conditions or Safety Concerns. All transfers mod (I) Weight Bearing Right Lower Extremity: Right Full Weight Bearing Left Lower Extremity: Left Full Weight Bearing Treatments Pt transfers in/out of bed mod (I). Pt donned slippers (I). Pt amb with FWW and SBA x 350ft at slow steady speed. Pt performed gastroc stretching with gait belt followed by active DF in sitting, hooklying and supine x 20 reps each position. Assessment Current Status: Good Progress Pt progressing appropriately. Pt demo good balance throughout. Pt back to bed with call light and all needs met. PT Short Term Goals Short Term Goals Time Frame: Mar 06, 2020 Roll Left & Right: 6 Sit to lyin Lying to sitting on side of be: 6 Sit to stand: 6 Chair/drf-ns-llybj transfer: 5 4 steps: 4 Picking up objects: 4 PT Branch Store Manager Goals Branch Store Manager Goals PT Branch Store Manager Goals Time Frame: Mar 13, 2020 Roll Left & Right (QC): 6 Sit to Lying (QC): 6 Lying-Sitting on Side/Bed(QC): 6 Sit to Stand (QC): 6 Chair/Ybr-hz-Ijfva Xfer(QC): 6 Toilet Transfer (QC): 6 Car Transfer (QC): 6 Does the Patient Walk: Yes Walk 10 feet (QC): 6 Walk 50ft with 2 Turns (QC): 6 Walk 150 ft (QC): 6 Walking 10ft on Uneven Surface: 6 1 Step (curb) (QC): 6 4 Steps (QC): 6 12 Steps (QC): 6 Picking up an Object (QC): 6 Does the Pt use WC or Scooter?: No Wheel 50 feet with 2 turns (QC: 9 Wheel 150 feet: 9 PT Plan Treatment/Plan Treatment Plan: Continue Plan of Care Treatment Plan: Bed Mobility, Education, Functional Activity Maikel, Functional Strength, Group Therapy, Gait, Safety, Therapeutic Exercise, Transfers Treatment Duration: Mar 13, 2020 Frequency: At least 5 of 7 days/Wk (IRF) Estimated Hrs Per Day: 1.5 hours per day Patient and/or Family Agrees t: Yes Time/GCodes Time In: 1020 Time Out: 1040 Total Billed Treatment Time: 20 Total Billed Treatment 1, gait x 13', (Ther ex x 7') NYA MORRISON CPTA Mar 07, 2020 11:09
[2020-03-07 18:20] VITALS: BP 123/61
--- NOTE | 2020-03-07 19:07 | NUR ---
Bedside report received from CEDRICK RANGEL, assume care of pt
--- NOTE | 2020-03-07 21:00 | NUR ---
fsbs 115 no ss insulin req, took chocolate pudding for snack refused yogurt
[2020-03-07 21:03] VITALS: BP 156/70
[2020-03-07] MEDS: MELATONIN 3 MG TABLET PO PRN (21:08)
[2020-03-07] MEDS: HYDROcodone/APAP 5 MG/325 MG (LORTAB) TAB PO PRN (21:11)
--- NOTE | 2020-03-07 21:11 | NUR ---
c/o abd pain level 8/10 on numeric scale, Lortab 5 1 tab given, also took melatonin for reat
--- NOTE | 2020-03-07 21:50 | NUR ---
rates pain level 5/10 on numeric scale
--- NOTE | 2020-03-07 22:10 | NUR ---
pt states stool is thick & hard to get out of bag Colace 100mg given
[2020-03-08 05:45] VITALS: BP 113/69
[2020-03-08] MEDS: inSUlin ASPART (NovoLOG) 1 UNIT/0.01 ML (CHARGE PER UNIT) SC SCH ×4 (06:00→21:00)
[2020-03-08] MEDS: ASCORBIC ACID (VIT C) 500 MG TABLET PO SCH (06:36)
[2020-03-08] MEDS: ENOXAPARIN 40 MG/0.4 ML (LOVENOX) SYR SC SCH (06:36)
[2020-03-08] MEDS: MULTIVIT W/MINERALS TAB (THERAGRAN M) PO SCH (06:36)
[2020-03-08 08:00] VITALS: BP 139/72
[2020-03-08] MEDS: amLODIPine 10 MG (NORVASC) TAB PO SCH (08:50)
[2020-03-08] MEDS: ASPIRIN 81 MG CHEW (CHILDREN'S ASA) PO SCH (08:50)
[2020-03-08] MEDS: LORATADINE (CLARITIN) 10 MG TAB PO SCH (08:50)
[2020-03-08] MEDS: CARVEDILOL 12.5 MG (COREG) TABLET PO SCH ×2 (08:50→21:28)
[2020-03-08] MEDS: SIMETHICONE 80 MG (MYLICON) CHEW PO SCH ×3 (08:50→21:27)
[2020-03-08] MEDS: AMIODARONE 200 MG (CORDARONE) TAB PO SCH ×3 (08:50→21:28)
[2020-03-08] MEDS: DAKIN'S FULL STRENGTH (0.5%) 480 ML BTL TOP SCH ×2 (08:52→21:42)
[2020-03-08] MEDS: GENTAMICIN SULFATE TP SCH (09:46)
[2020-03-08 17:00] VITALS: BP 116/63
--- NOTE | 2020-03-08 17:19 | PM&R Progress Note ---
Subjective HPI/CC On Admission Date Seen by Provider: Mar 08, 2020 Time Seen by Provider: 07:20 Subjective/Events-last exam 03/08/20: Has some questions about her ileostomy Ostomy is inverting Ileostomy now leaking since paste placed around the ostomy site 03/07/20: Ostomy leaking so tried another technique. No pain reported Wondering what time she can go home Monday. Talked about low potassium diet. 03/06/20: Pt doing pretty well Ostomy stays in placed with inverted waver Overall doing pretty well otherwise 03/05/20: Ileostomy functioning well Dominique is trying an inverted wafer to prevent bag from falling off Pain controlled 03/04/20: Discharge is planned on 03/10 Wound care seeing her Redness around the stoma will be addressed Changing laxatives to prn 03/03/20: Pt doing very well Dr. Jasso saw the wound and it is healing well Overall seems to be doing very well DC planned soon 03/02/20: Hgb 10.1 Will discontinue Benadryl and will take Claritin instead Only has one kidney, she is very particular about medications Isolation was discontinued because C-Diff was negative again Bowels are moving through the ileostomy 03/01/20: C diff second specimen sent to lab Pain pill given today and it helped Lovenox maintained No OAC recommended Dr Gaviria appreciated Patient doing well C diff negative and will recheck tomorrow then DC isolation BM today Dr Jasso consulted for wound care of abdomen WBC 11 Dr Gaviria consulted for AF and OAC question Checked meds and labs Conferred with RN Reviewed therapy notes Review of Systems General: Fatigue Gastrointestinal: Abdominal Pain Objective Exam Vital Signs Vital Signs Date Time Temp Pulse Resp B/P (MAP) Pulse Ox O2 Delivery O2 Flow Rate FiO2 03/09/20 01:00 60 03/08/20 21:30 Room Air 03/08/20 17:00 36.8 18 116/63 (80) 98 Capillary Refill : Less Than 3 Seconds General Appearance: No Apparent Distress, WD/WN, Chronically ill HEENT: PERRL/EOMI, Normal ENT Inspection, Pharynx Normal Neck: Full Range of Motion, Normal Inspection, Non Tender, Supple, Carotid Bruit Respiratory: Chest Non Tender, Lungs Clear, Normal Breath Sounds, No Accessory Muscle Use, No Respiratory Distress Cardiovascular: Regular Rate, Rhythm, No Edema, No Gallop, No JVD, No Murmur, Normal Peripheral Pulses Gastrointestinal: Normal Bowel Sounds, No Organomegaly, No Pulsatile Mass, Non Tender, Soft Back: Normal Inspection, No CVA Tenderness, No Vertebral Tenderness Extremity: Normal Capillary Refill, Normal Inspection, Normal Range of Motion, Non Tender, No Calf Tenderness, No Pedal Edema Neurologic/Psychiatric: Alert, Oriented x3, No Motor/Sensory Deficits, 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, Abnormal Gait, Motor Weakness (generalized) Skin: Normal Color, Warm/Dry Lymphatic: No Adenopathy Results/Procedures Lab Patient resulted labs reviewed. FIM Transfers Therapy Code Descriptions/Definitions Functional [place] Measure: 0=Not Assessed/NA 4=Minimal Assistance 1=Total Assistance 5=Supervision or Setup 2=Maximal Assistance 6=Modified [place] 3=Moderate Assistance 7=Complete IndependenceSCALE: Activities may be completed with or without assistive devices. 3-Mnnloacyub-hjowtgl completes the activity by him/herself with no assistance from a helper. 5-Set-up or Clean-up Assistance-helper sets up or cleans up; patient completes activity. Lead assists only prior to or following the activity. 4-Supervision or Touching Assistance-helper provides verbal cues and/or touching/steadying and/or contact guard assistance as patient completes activity. Assistance may be provided throughout the activity or intermittently. 3-Partial/Moderate Assistance-helper does LESS THAN HALF the effort. Lead lifts, holds or supports trunk or limbs, but provides less than half the effort. 2-Substantial/Maximal Assistance-helper does MORE THAN HALF the effort. Lead lifts or holds trunk or limbs and provides more than half the effort. 1-Sfarhgfpw-puhhlm does ALL the effort. Patient does none of the effort to complete the activity. Or, the assistance of 2 or more helpers is required for the patient to complete the activity. If activity was not attempted, code reason: 7-Patient Refused. 9-Not Applicable-not attempted and the patient did not perform the activity before the current illness, exacerbation or injury. 10-Not Attempted due to Environmental Limitations-(lack of equipment, weather restraints, etc.). 88-Not Attempted due to Medical Conditions or Safety Concerns. Roll Left to Right (QC): 6 Sit to Lying (QC): 6 Sit to Stand (QC): 6 Chair/Tao-yd-Xrrru Xfer(QC): 6 Car Transfer (QC): 4 Gait Training Does the Patient Walk?: Yes Distance: 150' x2 Walk 10 feet (QC): 6 Walk 50 ft with 2 Turns(QC): 6 Walk 150 ft (QC): 6 Walking 10ft/uneven surface-QC: 4 Gait Persons Needed: 1 Gait Assistive Device: FWW Wheelchair Training Does the Pt Use a Wheelchair?: No Wheel 50 ft with 2 turns (QC): 9 Wheel 150 ft (QC): 9 Stair Training Stair Training: Handrails/: 2 handrails #of Steps: 4 1 Step (curb) (QC): 4 4 Steps (QC): 4 12 Steps (QC): 88 Stairs: Pattern: Step to Balance Picking up an Object (QC): 88 ADL-Treatment Eating (QC): 6 (drinks with IND. per clinical judgment pt is IND with eating tasks.) Oral Hygiene (QC): 6 Bathing Location: L Arm, R Arm, L Upper Leg, R Upper Leg, L Lower Leg (including foot), R Lower Leg (including foot), Chest, Abdomen, Buttocks, Perineal Area Shower/Bathe Self (QC): 5 Upper Body Dressing (QC): 5 Lower Body Dressing (QC): 5 On/Off Footwear (QC): 6 Toileting Hygiene (QC): 6 Toilet Transfer (QC): 6 Assessment/Plan Assessment and Plan Assess & Plan/Chief Complaint Assessment: Myopathy AF w/RVR s/p cardioversion Hypothyroidism C diff colitis hx Ovarian cancer hx DM HTN Solitary kidney Plan: Home meds IRF protocol Insulin Monitor stools 02/29/20: Monitor loose stools OAC question? Dr Gaviria consult 03/01/20: Monitor pain C diff last specimen sent to lab Dr Gaviria appreciated 03/02/20: Take out of isolation since C.diff negative Monitor bowel function Pain control 03/03/20: Pain control Lovenox IRF protocol 03/04/20: Laxatives prn Monitor closely 03/05/20: Ileostomy bag ostomy care Pain meds 03/06/20: Ileostomy bag working well now Pain control 03/07/20: Ostomy supplies to help stop leaking Monitor pain 03/08/20: Ileostomy management Check labs in am DC Monday Reviewed [place] records and she will need to see Dr Harjinder Martines for f/u for revi liss of ostomy (1) Myopathy (2) C. 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
--- NOTE | 2020-03-08 19:04 | NUR ---
Bedside report received from CEDRICK RANGEL, assume care of pt
[2020-03-08 21:20] VITALS: BP 129/65
[2020-03-08] MEDS: HYDROcodone/APAP 5 MG/325 MG (LORTAB) TAB PO PRN (21:27)
--- NOTE | 2020-03-08 21:27 | NUR ---
fsbs 146 no ss insulin req, c/o abd pain level 7/10 on numeric scale, Lortab 5 1 tab given with melatonin 3 mg for sleep
[2020-03-08] MEDS: MELATONIN 3 MG TABLET PO PRN (21:28)
--- NOTE | 2020-03-08 21:30 | NUR ---
Dressing change to abd with wet to dry, Dakin solution fluffed gauze then ABD pad & Medipore tape, would pink minimal drainage, pt tolerated well
--- NOTE | 2020-03-08 22:10 | NUR ---
resting quietly in bed, pain level 0/10 on CNPI SCALE
[2020-03-09 05:10] VITALS: BP 134/65
[2020-03-09 06:12] LABS: BASOPHILS # (AUTO) 0.1 10^3/uL (0.0-0.1); BASOPHILS % (AUTO) 1 % (0-10); EOSINOPHILS # (AUTO) 0.6 10^3/uL (0.0-0.3); EOSINOPHILS % (AUTO) 7 % (0-10); HEMATOCRIT 31 % (35-52); HEMOGLOBIN 9.9 g/dL (11.5-16.0); LYMPHOCYTES # (AUTO) 1.2 10^3/uL (1.0-4.0); LYMPHOCYTES % (AUTO) 13 % (12-44); MEAN CORPUSCULAR HEMOGLOBIN 30 pg (25-34); MEAN CORPUSCULAR HGB CONC 32 g/dL (32-36); MEAN CORPUSCULAR VOLUME 94 fL (80-99); MEAN PLATELET VOLUME 9.7 fL (9.0-12.2); MONOCYTES # (AUTO) 0.8 10^3/uL (0.0-1.0); MONOCYTES % (AUTO) 9 % (0-12); NEUTROPHILS # (AUTO) 6.1 10^3/uL (1.8-7.8); NEUTROPHILS % (AUTO) 70 % (42-75); PLATELET COUNT 352 10^3/uL (130-400); WHITE BLOOD COUNT 8.8 10^3/uL (4.3-11.0)
[2020-03-09 06:25] LABS: ALBUMIN 3.3 GM/DL (3.2-4.5); POTASSIUM 4.3 MMOL/L (3.6-5.0)
[2020-03-09 06:26] LABS: CALCIUM 9.3 MG/DL (8.5-10.1)
[2020-03-09] MEDS: inSUlin ASPART (NovoLOG) 1 UNIT/0.01 ML (CHARGE PER UNIT) SC SCH ×4 (06:28→20:20)
[2020-03-09 06:29] LABS: BILIRUBIN,TOTAL 0.3 MG/DL (0.1-1.0)
[2020-03-09 06:31] LABS: CREATININE SERUM 1.14 MG/DL (0.60-1.30)
[2020-03-09] MEDS: ENOXAPARIN 40 MG/0.4 ML (LOVENOX) SYR SC SCH (06:46)
[2020-03-09] MEDS: MULTIVIT W/MINERALS TAB (THERAGRAN M) PO SCH (06:46)
[2020-03-09] MEDS: ASCORBIC ACID (VIT C) 500 MG TABLET PO SCH (06:47)
[2020-03-09 08:00] VITALS: BP 141/73
[2020-03-09] MEDS: AMIODARONE 200 MG (CORDARONE) TAB PO SCH ×2 (08:28→21:23)
[2020-03-09] MEDS: SIMETHICONE 80 MG (MYLICON) CHEW PO SCH ×3 (08:28→21:23)
[2020-03-09] MEDS: ASPIRIN 81 MG CHEW (CHILDREN'S ASA) PO SCH (08:29)
[2020-03-09] MEDS: LORATADINE (CLARITIN) 10 MG TAB PO SCH (08:29)
[2020-03-09] MEDS: CARVEDILOL 12.5 MG (COREG) TABLET PO SCH ×2 (08:29→21:25)
[2020-03-09] MEDS: amLODIPine 10 MG (NORVASC) TAB PO SCH (08:29)
[2020-03-09] MEDS: DAKIN'S FULL STRENGTH (0.5%) 480 ML BTL TOP SCH ×2 (08:30→21:40)
--- NOTE | 2020-03-09 08:58 | PM&R Progress Note ---
Subjective HPI/CC On Admission Date Seen by Provider: Mar 09, 2020 Time Seen by Provider: 09:00 Subjective/Events-last exam 03/09/20: Dr. Harjinder Martines will see her for hair colostomy as an outpatient No more leaking from the colostomy bag Hgb is stable at 9.9 03/08/20: Has some questions about her ileostomy Ostomy is inverting Ileostomy now leaking since paste placed around the ostomy site 03/07/20: Ostomy leaking so tried another technique. No pain reported Wondering what time she can go home Monday. Talked about low potassium diet. 03/06/20: Pt doing pretty well Ostomy stays in placed with inverted waver Overall doing pretty well otherwise 03/05/20: Ileostomy functioning well Dominique is trying an inverted wafer to prevent bag from falling off Pain controlled 03/04/20: Discharge is planned on 03/10 Wound care seeing her Redness around the stoma will be addressed Changing laxatives to prn 03/03/20: Pt doing very well Dr. Jasso saw the wound and it is healing well Overall seems to be doing very well DC planned soon 03/02/20: Hgb 10.1 Will discontinue Benadryl and will take Claritin instead Only has one kidney, she is very particular about medications Isolation was discontinued because C-Diff was negative again Bowels are moving through the ileostomy 03/01/20: C diff second specimen sent to lab Pain pill given today and it helped Lovenox maintained No OAC recommended Dr Gaviria appreciated Patient doing well C diff negative and will recheck tomorrow then DC isolation BM today Dr Jasso consulted for wound care of abdomen WBC 11 Dr Gaviria consulted for AF and OAC question Checked meds and labs Conferred with RN Reviewed therapy notes Review of Systems Gastrointestinal: Abdominal Pain Objective Exam Vital Signs Vital Signs Date Time Temp Pulse Resp B/P (MAP) Pulse Ox O2 Delivery O2 Flow Rate FiO2 03/10/20 01:00 56 03/09/20 20:00 Room Air 03/09/20 16:12 36.8 20 114/63 (80) 99 Capillary Refill : Less Than 3 Seconds General Appearance: No Apparent Distress, WD/WN, Chronically ill HEENT: PERRL/EOMI, Normal ENT Inspection, Pharynx Normal Neck: Full Range of Motion, Normal Inspection, Non Tender, Supple, Carotid Bruit Respiratory: Chest Non Tender, Lungs Clear, Normal Breath Sounds, No Accessory Muscle Use, No Respiratory Distress Cardiovascular: Regular Rate, Rhythm, No Edema, No Gallop, No JVD, No Murmur, Normal Peripheral Pulses Gastrointestinal: Normal Bowel Sounds, No Organomegaly, No Pulsatile Mass, Non Tender, Soft Back: Normal Inspection, No CVA Tenderness, No Vertebral Tenderness Extremity: Normal Capillary Refill, Normal Inspection, Normal Range of Motion, Non Tender, No Calf Tenderness, No Pedal Edema Neurologic/Psychiatric: Alert, Oriented x3, No Motor/Sensory Deficits, 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, Abnormal Gait, Motor Weakness (generalized) Skin: Normal Color, Warm/Dry Lymphatic: No Adenopathy Results/Procedures Lab Laboratory Tests 03/09/20 05:48 Patient resulted labs reviewed. FIM Transfers Therapy Code Descriptions/Definitions Functional [place] Measure: 0=Not Assessed/NA 4=Minimal Assistance 1=Total Assistance 5=Supervision or Setup 2=Maximal Assistance 6=Modified [place] 3=Moderate Assistance 7=Complete IndependenceSCALE: Activities may be completed with or without assistive devices. 5-Ngunbndwzq-ogeebxc completes the activity by him/herself with no assistance from a helper. 5-Set-up or Clean-up Assistance-helper sets up or cleans up; patient completes activity. [place] assists only prior to or following the activity. 4-Supervision or Touching Assistance-helper provides verbal cues and/or touc marquis/steadying and/or contact guard assistance as patient completes activity. Assistance may be provided throughout the activity or intermittently. 3-Partial/Moderate Assistance-helper does LESS THAN HALF the effort. [place] lifts, holds or supports trunk or limbs, but provides less than half the effort. 2-Substantial/Maximal Assistance-helper does MORE THAN HALF the effort. [place] lifts or holds trunk or limbs and provides more than half the effort. 9-Jmeqcualj-pixyba does ALL the effort. Patient does none of the effort to complete the activity. Or, the assistance of 2 or more helpers is required for the patient to complete the activity. If activity was not attempted, code reason: 7-Patient Refused. 9-Not Applicable-not attempted and the patient did not perform the activity be fore the current illness, exacerbation or injury. 10-Not Attempted due to Environmental Limitations-(lack of equipment, weather restraints, etc.). 88-Not Attempted due to Medical Conditions or Safety Concerns. Roll Left to Right (QC): 6 Sit to Lying (QC): 6 Sit to Stand (QC): 6 Chair/Rnt-ww-Jexnh Xfer(QC): 6 Car Transfer (QC): 4 Gait Training Does the Patient Walk?: Yes Distance: 150' x2 Walk 10 feet (QC): 6 Walk 50 ft with 2 Turns(QC): 6 Walk 150 ft (QC): 6 Walking 10ft/uneven surface-QC: 4 Gait Persons Needed: 1 Gait Assistive Device: FWW Wheelchair Training Does the Pt Use a Wheelchair?: No Wheel 50 ft with 2 turns (QC): 9 Wheel 150 ft (QC): 9 Stair Training Stair Training: Handrails/: 2 handrails #of Steps: 4 1 Step (curb) (QC): 4 4 Steps (QC): 4 12 Steps (QC): 88 Stairs: Pattern: Step to Balance Picking up an Object (QC): 88 ADL-Treatment Eating (QC): 6 (drinks with IND. per clinical judgment pt is IND with eating tasks.) Oral Hygiene (QC): 6 Bathing Location: L Arm, R Arm, L Upper Leg, R Upper Leg, L Lower Leg (including foot), R Lower Leg (including foot), Chest, Abdomen, Buttocks, Perineal Area Shower/Bathe Self (QC): 5 Upper Body Dressing (QC): 5 Lower Body Dressing (QC): 5 On/Off Footwear (QC): 6 Toileting Hygiene (QC): 6 Toilet Transfer (QC): 6 Assessment/Plan Assessment and Plan Assess & Plan/Chief Complaint Assessment: Myopathy AF w/RVR s/p cardioversion Hypothyroidism C diff colitis hx Ovarian cancer hx DM HTN Solitary kidney Plan: Home meds IRF protocol Insulin Monitor stools 02/29/20: Monitor loose stools OAC question? Dr Gaviria consult 03/01/20: Monitor pain C diff last specimen sent to lab Dr Gaviria appreciated 03/02/20: Take out of isolation since C.diff negative Monitor bowel function Pain control 03/03/20: Pain control Lovenox IRF protocol 03/04/20: Laxatives prn Monitor closely 03/05/20: Ileostomy bag ostomy care Pain meds 03/06/20: Ileostomy bag working well now Pain control 03/07/20: Ostomy supplies to help stop leaking Monitor pain 03/08/20: Ileostomy management Check labs in am DC Monday [facility] and she will need to see Dr Harjinder Martines for f/u for revision of ostomy 03/09/20: DC tomorrow Dr Martines f/u appt (1) Myopathy (2) C. 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
[2020-03-09] MEDS: GENTAMICIN SULFATE TP SCH (09:00)
--- NOTE | 2020-03-09 09:29 | Occupational Ther Daily Note ---
OT Current Status-Daily Note Subjective Pt resting in bed, woke easily to name. Pt agrees to therapy. No c/o pain at this time. Mental Status/Objective Patient Orientation: Person, Place, Time, Situation Attachments: Colostomy/Ileostomy, IV ADL-Treatment Pt agrees to shower. Bed mobility, independent. Using FWW to retrieve clothing, pt transports to bathroom. Pt ambulated around room gathering supplies, placing in walker basket and taking to bathroom. Transfer onto toilet, independently using FWW. Completed toileting and colostomy care, independently. Pt ambulated to sink, stood at sink to soak dentures and wash hands. Transferred to shower using FWW, grabbar and shower bench independently. Pt completed shower independently using grabbar, hand held shower and shower bench. Pt transferred out of the shower as sat to complete all dressing, FWW used in standing when hiking pants over hips. Pt then ambulated to sink to complete oral care independently. Pt ambulated to bed and completed bed mobility independently. Discussed pt's bathroom, has ~2" lip to step over to get into shower then a built in shower seat. Nrsg in room after session to c jovannie pt's dressing. Call light/phone in reach. All needs met in room. Therapy Code Descriptions/Definitions Functional [place] Measure: 0=Not Assessed/NA 4=Minimal Assistance 1=Total Assistance 5=Supervision or Setup 2=Maximal Assistance 6=Modified [place] 3=Moderate Assistance 7=Complete IndependenceSCALE: Activities may be completed with or without assistive devices. 0-Wpcdikewrj-tntblqp completes the activity by him/herself with no assistance from a helper. 5-Set-up or Clean-up Assistance-helper sets up or cleans up; patient completes activity. [place] assists only prior to or following the activity. 4-Supervision or Touching Assistance-helper provides verbal cues and/or touching/steadying and/or contact guard assistance as patient completes activity. Assistance may be provided throughout the activity or intermittently. 3-Partial/Moderate Assistance-helper does LESS THAN HALF the effort. [place] lifts, holds or supports trunk or limbs, but provides less than half the effort. 2-Substantial/Maximal Assistance-helper does MORE THAN HALF the effort. [place] lifts or holds trunk or limbs and provides more than half the effort. 3-Fuaqkwqsb-xixbcc does ALL the effort. Patient does none of the effort to complete the activity. Or, the assistance of 2 or more helpers is required for the patient to complete the activity. If activity was not attempted, code reason: 7-Patient Refused. 9-Not Applicable-not attempted and the patient did not perform the activity before the current illness, exacerbation or injury. 10-Not Attempted due to Environmental Limitations-(lack of equipment, weather restraints, etc.). 88-Not Attempted due to Medical Conditions or Safety Concerns. Eating (QC): 6 (Using clinical judgment, pt able to complete independently.) Oral Hygiene (QC): 6 Shower/Bathe Self (QC): 6 Upper Body Dressing (QC): 6 Lower Body Dressing (QC): 6 On/Off Footwear: 6 Toileting Hygiene (QC): 6 Toilet Transfer (QC): 6 OT Short Term Goals Short Term Goals Time Frame: Mar 06, 2020 Lower body dressin Putting on/taking off footwear: 6 OT Leather Stitcher Goals Leather Stitcher Goals Time Frame: Mar 13, 2020 Eating (QC): 6 (met) Oral Hygiene (QC): 6 (met) Toileting Hygiene (QC): 6 (met) Shower/Bathe Self (QC): 6 (et) Upper Body Dressing (QC): 6 (met) Lower Body Dressing (QC): 6 (met) On/Off Footwear (QC): 6 (me) Demonstrate ability to change colonoscopy bag with s/u-IND. Additional Goals: 1-Demonstrate ADL Tasks, 2-Verbalize Understanding, 3-Im proveStrength/Maikel 1=Demonstrate adherence to instructed precautions during ADL tasks. 2=Patient will verbalize/demonstrate understanding of assistive devices/modifications for ADL. 3=Patient will improve strength/tolerance for activity to enable patient to perform ADL's. OT Education/Plan Problem List/Assessment Assessment: Impaired Self-Care Skills Discharge Recommendations Plan/Recommendations: Continue POC (Discharge date 03/10/2020) Therapy Discharge Recommendati: Home & Family, Post Acute PT, Post Acute OT Treatment Plan/Plan of Care Patient would benefit from OT for education, treatment and training to promote independence in ADL's, mobility, safety and/or upper extremity function for ADL's. Plan of Care: ADL Retraining, Functional Mobility, Group Exercise/Act as Ind, UE Funct Exercise/Act, UE Neuromus Re-Ed/Coord Treatment Duration: Mar 13, 2020 Frequency: At least 5 of 7 days/Wk (IRF) Estimated Hrs Per Day: 1.5 hours per day Agreement: Yes Rehab Potential: Good Time/GCodes Start Time: 08:00 Stop Time: 09:30 Total Time Billed (hr/min): 90 Billed Treatment Time 1 visit-ADL 5 (75 min) FA 1 (15 min) ELIZABETH BUTLER Mar 09, 2020 09:29
--- NOTE | 2020-03-09 10:53 | Physical Therapy Daily Note ---
PT Daily Note-Current Subjective Pt. explains that she will be alone at home alone except for 1st 2 days. Pt. states she has not yet completely managed her colostomy independently Pain Location: No Pain Reported Mental Status Patient Orientation: Normal For Age Attachments: Colostomy/Ileostomy Transfers SCALE: Activities may be completed with or without assistive devices. 6-Yzhkvkjfrk-tfrdena completes the activity by him/herself with no assistance from a helper. 5-Set-up or Clean-up Assistance-helper sets up or cleans up; patient completes activity. [place] assists only prior to or following the activity. 4-Supervision or Touching Assistance-helper provides verbal cues and/or touching/steadying and/or contact guard assistance as patient completes activity. Assistance may be provided throughout the activity or intermittently. 3-Partial/Moderate Assistance-helper does LESS THAN HALF the effort. [place] lifts, holds or supports trunk or limbs, but provides less than half the effort. 2-Substantial/Maximal Assistance-helper does MORE THAN HALF the effort. [place] lifts or holds trunk or limbs and provides more than half the effort. 7-Rwtdaxmcr-qlgtcj does ALL the effort. Patient does none of the effort to compl ete the activity. Or, the assistance of 2 or more helpers is required for the patient to complete the activity. If activity was not attempted, code reason: 7-Patient Refused. 9-Not Applicable-not attempted and the patient did not perform the activity before the current illness, exacerbation or injury. 10-Not Attempted due to Environmental Limitations-(lack of equipment, weather restraints, etc.). 88-Not Attempted due to Medical Conditions or Safety Concerns. Roll Left & Right (QC): 6 Sit to Lying (QC): 6 Lying to Sitting/Side of Bed(Q: 6 Sit to Stand (QC): 6 Chair/Wlq-mf-Drbfs Xfer(QC): 6 Toilet Transfer (QC): 6 Car Transfer (QC): 6 Weight Bearing Right Lower Extremity: Right Full Weight Bearing Left Lower Extremity: Left Full Weight Bearing Gait Training Does the Patient Walk?: Yes Walk 10 feet (QC): 6 Walk 50 ft with 2 Turns(QC): 6 Walk 150 ft (QC): 6 Walking 10ft/uneven surface-QC: 6 Gait Persons Needed: 1 Gait Assistive Device: FWW Stair Training Stair Training: Handrails/: 2 handrails #of Steps: 4 1 Step (curb) (QC): 4 4 Steps (QC): 4 12 Steps (QC): 7 Stairs: Pattern: Step to discussed how helper assist would manage FWW up or down steps before pt. then CGA to pt. during steps in home situation Balance Picking up an Object (QC): 88 Exercises Supine Ex: Ankle pumps, Quad Set, Rolling, Glut sets, Heel Slides, Scooting, Straight leg raise, Hip abd/add Supine Reps: 15 NuStep Minutes: 10 NuStep Workload: 2 Assessment Current Status: Good Progress PT Short Term Goals Short Term Goals Time Frame: Mar 06, 2020 Roll Left & Right: 6 Sit to lyin Lying to sitting on side of be: 6 Sit to stand: 6 Chair/dxk-fv-euevq transfer: 5 4 steps: 4 Picking up objects: 4 PT Grommet Worker Goals Grommet Worker Goals PT Grommet Worker Goals Time Frame: Mar 13, 2020 Roll Left & Right (QC): 6 Sit to Lying (QC): 6 Lying-Sitting on Side/Bed(QC): 6 Sit to Stand (QC): 6 Chair/Mgv-am-Eyefc Xfer(QC): 6 Toilet Transfer (QC): 6 Car Transfer (QC): 6 Does the Patient Walk: Yes Walk 10 feet (QC): 6 Walk 50ft with 2 Turns (QC): 6 Walk 150 ft (QC): 6 Walking 10ft on Uneven Surface: 6 1 Step (curb) (QC): 6 4 Steps (QC): 6 12 Steps (QC): 6 Picking up an Object (QC): 6 Does the Pt use WC or Scooter?: No Wheel 50 feet with 2 turns (QC: 9 Wheel 150 feet: 9 PT Plan Treatment/Plan Treatment Plan: Continue Plan of Care Treatment Plan: Bed Mobility, Education, Functional Activity Maikel, Functional Strength, Group Therapy, Gait, Safety, Therapeutic Exercise, Transfers Treatment Duration: Mar 13, 2020 Frequency: At least 5 of 7 days/Wk (IRF) Estimated Hrs Per Day: 1.5 hours per day Patient and/or Family Agrees t: Yes Safety Risks/Education Patient Education: Gait Training, Transfer Techniques, Steps, Correct Positioning, Disease Process, Safety Issues Teaching Recipient: Patient Teaching Methods: Demonstration, Discussion Response to Teaching: Verbalize Understanding, Return Demonstration, Reinforcement Needed Time/GCodes Time In: 1000 Time Out: 1100 Total Billed Treatment Time: 60 Total Billed Treatment 1,FA30m,EX10m,GT20m DANNI AUGUSTINE [employer] SURVEYOR Mar 09, 2020 10:53
--- NOTE | 2020-03-09 11:22 | Progress Note ---
MEAGHAN LEON MED STUDENT 03/09/20 1122: Progress Note This patient was admitted on 02/27 following an extended hospital stay at another facility. On 01/20 she presented with abdominal pain and diarrhea. She then later fainted and was a code blue. She was resuscitated and had an extended hospital stay from 02/07-02/27 where she also had a colectomy. Since then she has been on the recovery unit. She also received a course of abx for C.diff. She feels she has made great strides in her mobility and is happy with her progress. She has had some problems with her ostomy but she is being sent home with an ap pointment to see the surgeon to try to find a solution. Supervisory-Addendum Brief Verification & Attestation Participated in pt care: history, physical Personally performed: exam, history Care discussed with: other Procedures: n/a NENA MIMS DO 03/10/20 0511: Supervisory-Addendum Brief Verification & Attestation Participated in pt care: history, MDM, physical Personally performed: exam, history, MDM, supervision of care Care discussed with: Medical Student Procedures: n/a Results interpretation: Verified all documentation Verification and Attestation of Medical Student E/M Service A medical student performed and documented this service in my presence. I reviewed and verified all information documented by the medical student and made modifications to such information, when appropriate. I personally performed the physical exam and medical decision making. Nena Mims, Mar 10, 2020,05:11 MEAGHAN LEON MED STUDENT Mar 09, 2020 11:22 NENA MIMS DO Mar 10, 2020 05:11
--- NOTE | 2020-03-09 14:22 | NUR ---
CM/SS DISCHARGE PLANNING Patient will discharge home tomorrow as planned. HH: Reviewed Medicare Compare agencies in patient's service area, patient chose [facility] as provider. Referral completed for RN PT OT, await confirmation they can provide. Patient has new ostomy, supplies are ordered through [employer] and guest services representative is coming today to see patient to insure she leaves with adequate initial equipment. DME: Patient confirms she needs no new equipment for home use. Patient's daughter will pick her up tomorrow, her other daughter intends to stay a few nights with her until she is comfortable being alone. Patient indicates good family support from her children. IMM2 discussed, patient has no intention to appeal. She has participated in all phases of planning and is readying herself with education and training for ostomy management. Patient targets a late a.m. departure. Unit RN aware and has already made all follow up physician appointments including PCP, surgeon Dr. Harjinder Martines at [facility], and AVCP/Wound Care Dr. Jasso. Finalize in a.m.
--- NOTE | 2020-03-09 14:29 | Physical Therapy Daily Note ---
PT Daily Note-Current Subjective Pt. agrees to Rx and wants to be up ad rivas in room. Pain Location: No Pain Reported Mental Status Patient Orientation: Normal For Age Attachments: Colostomy/Ileostomy Transfers SCALE: Activities may be completed with or without assistive devices. 3-Mzhubmrtfm-dwiuovr completes the activity by him/herself with no assistance from a helper. 5-Set-up or Clean-up Assistance-helper sets up or cleans up; patient completes activity. [place] assists only prior to or following the activity. 4-Supervision or Touching Assistance-helper provides verbal cues and/or t ouching/steadying and/or contact guard assistance as patient completes activity. Assistance may be provided throughout the activity or intermittently. 3-Partial/Moderate Assistance-helper does LESS THAN HALF the effort. [place] lifts, holds or supports trunk or limbs, but provides less than half the effort. 2-Substantial/Maximal Assistance-helper does MORE THAN HALF the effort. [place] lifts or holds trunk or limbs and provides more than half the effort. 7-Lfsakfnlf-pvfpjm does ALL the effort. Patient does none of the effort to complete the activity. Or, the assistance of 2 or more helpers is required for the patient to complete the activity. If activity was not attempted, code reason: 7-Patient Refused. 9-Not Applicable-not attempted and the patient did not perform the activity before the current illness, exacerbation or injury. 10-Not Attempted due to Environmental Limitations-(lack of equipment, weather restraints, etc.). 88-Not Attempted due to Medical Conditions or Safety Concerns. TRFs in out bed and chair and toilet mod I Weight Bearing Right Lower Extremity: Right Full Weight Bearing Left Lower Extremity: Left Full Weight Bearing Gait Training Does the Patient Walk?: Yes Gait Assistive Device: FWW FWW mod I 150 ft x 2 Exercises instructed again in use of gait belt to self stretch her left HC, x5 with 15 sec hold Treatments Rx emphasis on indep and up ad rivas safety status practicing management of bed side table and where to store FWW for safe close proximity when she gets up to toilet and be up and about. Pt chose to leave bthrm door open and reach for lightswitch indep rather than close the door and deal with the awkward reaching then backing up walking etc. Pt. demonstrated indep in this session, up graded to up ad rivas status Assessment Current Status: Good Progress PT Short Term Goals Short Term Goals Time Frame: Mar 06, 2020 Roll Left & Right: 6 Sit to lyin Lying to sitting on side of be: 6 Sit to stand: 6 Chair/tdn-ii-apnia transfer: 5 4 steps: 4 Picking up objects: 4 PT Precision Lens Polisher Goals Precision Lens Polisher Goals PT Skilled Nursing Goals Time Frame: Mar 13, 2020 Roll Left & Right (QC): 6 Sit to Lying (QC): 6 Lying-Sitting on Side/Bed(QC): 6 Sit to Stand (QC): 6 Chair/Kmp-vh-Jzezu Xfer(QC): 6 Toilet Transfer (QC): 6 Car Transfer (QC): 6 Does the Patient Walk: Yes Walk 10 feet (QC): 6 Walk 50ft with 2 Turns (QC): 6 Walk 150 ft (QC): 6 Walking 10ft on Uneven Surface: 6 1 Step (curb) (QC): 6 4 Steps (QC): 6 12 Steps (QC): 6 Picking up an Object (QC): 6 Does the Pt use WC or Scooter?: No Wheel 50 feet with 2 turns (QC: 9 Wheel 150 feet: 9 PT Plan Treatment/Plan Treatment Plan: Continue Plan of Care Treatment Plan: Bed Mobility, Education, Functional Activity Maikel, Functional Strength, Group Therapy, Gait, Safety, Therapeutic Exercise, Transfers Treatment Duration: Mar 13, 2020 Frequency: At least 5 of 7 days/Wk (IRF) Estimated Hrs Per Day: 1.5 hours per day Patient and/or Family Agrees t: Yes Safety Risks/Education Patient Education: Gait Training, Transfer Techniques, Correct Positioning, Safety Issues Teaching Recipient: Patient Teaching Methods: Demonstration, Discussion Response to Teaching: Verbalize Understanding, Return Demonstration, Reinforcement Needed Time/GCodes Time In: 1400 Time Out: 1430 Total Billed Treatment Time: 30 Total Billed Treatment 1,FA20m,EX10m DANNI AUGUSTINE FABRICATOR [employer] Mar 09, 2020 14:29
[2020-03-09 16:12] VITALS: BP 114/63
--- NOTE | 2020-03-09 16:15 | NUR ---
Akua Maynard, This RN, and GILBERTO meet with patient. Reassurance given regarding ample supplies at home and extra numbers to call if needing further assistance with ostomy supplies. Akua maynard explains, patient has been started through the [employer], so a box arrived within 48hours of 03/04/20 with all of the supplies she will need for making sure she gets the correct fit and supplies once she is home. Home Health will be visiting with patient, and patient has Akua Maynard's number and this RN's number if she has any further questions or issues once she is home. Educational videos through smart phone code also given. Patient acknowledges products and support.
[2020-03-09] MEDS: HYDROcodone/APAP 5 MG/325 MG (LORTAB) TAB PO PRN (21:23)
[2020-03-09] MEDS: MELATONIN 3 MG TABLET PO PRN (21:23)
[2020-03-10] MEDS ORDERED: CARV12.53 PO (05:58)
[2020-03-10] MEDS ORDERED: AMIO200T6 PO (05:58)
[2020-03-10] MEDS ORDERED: ACHD5005 PO (05:58)
--- NOTE | 2020-03-10 05:59 | D/C HH Face to Face Order ---
D/C Face to Face Orders Reconcile Patient Problems Problems Reviewed?: Yes Instructions for Patient Via [facility] [employer], Patient Instructions/FollowUp: Jose L Corbett [address] Martines Cardiology Physician to follow Patient: [facility] Discharge Diet for Home: No Restrictions Patient Problems: Ileostomy C diff hx Patient Data-Allergies,Ht & Wt Patient Allergies: Coded Allergies: Penicillins (Verified Allergy, Unknown, 02/28/20) raspberry (Verified Allergy, Unknown, 02/28/20) Home Health Need/Face to Face Date of Face to Face: Mar 10, 2020 Clinical Findings: Generalized weakness and fatigue, Instability, Muscle weakness, Unsteady gait, Non-healing wound I have seen Pt [id number]: Yes Discharged To: Home Diagnosis/Conditions: Ileostomy C diff hx Patient is Homebound due to: Jenny fall risk due to instabilty Homebound Status Due to the above stated illness, injury or surgical procedure (medical condition or diagnosis) and associated clinical findings, the patient is homebound because of his/her inability to leave home except with aid of a supportive device and/or person AND leaving the home requires a considerable and taxing effort or is medically contraindicated. Pt req the following assistanc: Walker Home Health Nursing Orders Home Health Services Order: Nursing Services, Hydraulic Plumber-Evaluate & Treat, Physical Therapy-Evaluate & Treat, Wound Care-Eval/Treat Certify Stmt I certify that this patient is under my care and that I, a nurse practitioner or a physician; a child care assistant working with me, had a face to face encounter that - meets the physician face to face encounter requirements with this patient as dated. LORENZO MIMS DO Mar 10, 2020 05:59
--- NOTE | 2020-03-10 06:15 | Discharge Summary ---
Diagnosis/Chief Complaint Date of Admission Feb 28, 2020 at 10:40 Date of Discharge Discharge Date: Mar 10, 2020 Discharge Diagnosis Assessment: Myopathy AF w/RVR s/p cardioversion Hypothyroidism C diff colitis hx Ovarian cancer hx DM HTN Solitary kidney Ileostomy Plan: Home meds IRF protocol Insulin Monitor stools 02/29/20: Monitor loose stools OAC question? Dr Gaviria consult 03/01/20: Monitor pain C diff last specimen sent to lab Dr Gaviria appreciated 03/02/20: Take out of isolation since C.diff negative Monitor bowel function Pain control 03/03/20: Pain control Lovenox IRF protocol 03/04/20: Laxatives prn Monitor closely 03/05/20: Ileostomy bag ostomy care Pain meds 03/06/20: Ileostomy bag working well now Pain control 03/07/20: Ostomy supplies to help stop leaking Monitor pain 03/08/20: Ileostomy management Check labs in am DC Monday Reviewed [facility] records and she will need to see Dr Harjinder Martines for f/u for revision of ostomy 03/09/20: DC tomorrow Dr Martines f/u appt (1) Myopathy (2) C. difficile colitis (3) Atrial fibrillation (4) History of cardioversion (5) Hypertension (6) Diabetes mellitus (7) Hypothyroidism (8) Solitary kidney (9) Ovarian cancer in remission (10) Ileostomy in place Discharge Summary Discharge Physical Examination Allergies: Coded Allergies: Penicillins (Verified Allergy, Unknown, 02/28/20) raspberry (Verified Allergy, Unknown, 02/28/20) Vitals & I&Os Vital Signs Date Time Temp Pulse Resp B/P (MAP) Pulse Ox O2 Delivery O2 Flow Rate FiO2 03/10/20 11:30 36.4 65 20 117/59 97 Room Air General Appearance: Alert, Oriented X3, Cooperative Respiratory: Clear to Auscultation Cardiovascular: Regular Rate Neuro: Normal Gait, Normal Speech, Strength at 5/5 X4 Ext Psych/Mental Status: Mental Status NL Hospital Course Was the Problem List Reviewed?: Yes Hospital course: Pt had an uneventful 12 day hospital course after she was admitted from [facility] after a significant hospital stay which was critical, resulting in an urgent sub-total colectomy and requiring cardioversion X2 due to AFIB after syncopal episode which caused an ICU hospital course, but she did very well, she had no significant compromise during her hospital stay, she remains stable, ostomy nurse helped her with her ostomy bag. She will see Dr. Martines at [facility] in close follow-up along with her PCP Jose L Corbett and I did review all of her home medication and she was placed back on her home meds without issues. She was deemed stable for discharge having completed therapies requirements. Labs (last 24 hrs) Laboratory Tests 02/28/20 15:46: Glucometer 146H 02/28/20 21:12: Glucometer 147H 02/29/20 06:25: Glucometer 120H 02/29/20 06:43: White Blood Count 11.1H, Red Blood Count 3.43L, Hemoglobin 10.3L, Hematocrit 32L , Mean Corpuscular Volume 94, Mean Corpuscular Hemoglobin 30, Mean Corpuscular Hemoglobin Concent 32, Red Cell Distribution Width 17.8H, Platelet Count 309, Mean Platelet Volume 9.5, Immature Granulocyte % (Auto) 1, Neutrophils (%) (Auto) 71, Lymphocytes (%) (Auto) 15, Monocytes (%) (Auto) 6, Eosinophils (%) (Auto) 6, Basophils (%) (Auto) 1, Neutrophils # (Auto) 7.9H, Lymphocytes # (Auto) 1.7, Monocytes # (Auto) 0.7, Eosinophils # (Auto) 0.7H, Basophils # (Auto) 0.1, Immature Granulocyte # (Auto) 0.1, Sodium Level 135, Potassium Level 4.7, Chloride Level 106, Carbon Dioxide Level 18L, Anion Gap 11, Blood Urea Nitrogen 30H, Creatinine 1.17, Estimat Glomerular Filtration Rate 45, BUN/Creatinine Ratio 26, Glucose Level 107H, Calcium Level 9.5, Corrected Calcium 9.7, Total Bilirubin 0.3, Aspartate Amino Transf (AST/SGOT) 20, Alanine Aminotransferase (ALT/SGPT) 30, Alkaline Phosphatase 110, Total Protein 6.7, Albumin 3.7 02/29/20 12:01: Glucometer 93 02/29/20 15:53: Glucometer 179H 02/29/20 21:23: Glucometer 131H 03/01/20 06:15: Glucometer 117H 03/01/20 11:48: Glucometer 97 03/01/20 15:17: Glucometer 157H 03/01/20 20:09: Glucometer 235H 03/02/20 05:05: White Blood Count 10.3, Red Blood Count 3.34L, Hemoglobin 10.1L, Hematocrit 32L, Mean Corpuscular Volume 95, Mean Corpuscular Hemoglobin 30, Mean Corpuscular Hemoglobin Concent 32, Red Cell Distribution Width 17.4H, Platelet Count 332, Mean Platelet Volume 9.8, Immature Granulocyte % (Auto) 1, Neutrophils (%) (Auto) 73, Lymphocytes (%) (Auto) 13, Monocytes (%) (Auto) 7, Eosinophils (%) (Auto) 6, Basophils (%) (Auto) 1, Neutrophils # (Auto) 7.6, Lymphocytes # (Auto) 1.3, Monocytes # (Auto) 0.7, Eosinophils # (Auto) 0.6H, Basophils # (Auto) 0.1, Immature Granulocyte # (Auto) 0.1, Sodium Level 138, Potassium Level 4.6, Chloride Level 110H, Carbon Dioxide Level 18L, Anion Gap 10, Blood Urea Nitrogen 28H, Creatinine 1.12, Estimat Glomerular Filtration Rate 48, BUN/Creatinine Ratio 25, Glucose Level 111H, Calcium Level 9.3, Corrected Calcium 9.8, Total Bilirubin 0.3, Aspartate Amino Transf (AST/SGOT) 30, Alanine Aminotransferase (ALT/SGPT) 35, Alkaline Phosphatase 128, Total Protein 6.2L, Albumin 3.4 03/02/20 05:13: Glucometer 116H 03/02/20 10:57: Glucometer 123H 03/02/20 16:54: Glucometer 137H 03/02/20 21:17: Glucometer 125H 03/03/20 05:23: Glucometer 134H 03/03/20 10:52: Glucometer 114H 03/03/20 15:39: Glucometer 182H 03/03/20 20:19: Glucometer 107 03/04/20 05:30: Glucometer 86 03/04/20 10:50: Glucometer 110 03/04/20 15:08: Glucometer 132H 03/04/20 20:07: Glucometer 189H 03/05/20 05:31: Glucometer 90 03/05/20 10:45: Glucometer 96 03/05/20 15:59: Glucometer 97 03/05/20 20:31: Glucometer 145H 03/06/20 05:51: Glucometer 115H 03/06/20 10:43: Glucometer 107 03/06/20 15:22: Glucometer 124H 03/06/20 20:12: Glucometer 155H 03/07/20 05:45: Glucometer 110 03/07/20 11:31: Glucometer 120H 03/07/20 16:54: Glucometer 85 03/07/20 20:27: Glucometer 115H 03/08/20 05:41: Glucometer 85 03/08/20 11:37: Glucometer 112H 03/08/20 15:44: Glucometer 116H 03/08/20 20:23: Glucometer 146H 03/09/20 05:48: White Blood Count 8.8, Red Blood Count 3.35L, Hemoglobin 9.9L, Hematocrit 31L, Mean Corpuscular Volume 94, Mean Corpuscular Hemoglobin 30, Mean Corpuscular Hemoglobin Concent 32, Red Cell Distribution Width 16.1H, Platelet Count 352, Mean Platelet Volume 9.7, Immature Granulocyte % (Auto) 0, Neutrophils (%) (Auto) 70, Lymphocytes (%) (Auto) 13, Monocytes (%) (Auto) 9, Eosinophils (%) (Auto) 7, Basophils (%) (Auto) 1, Neutrophils # (Auto) 6.1, Lymphocytes # (Auto) 1.2, Monocytes # (Auto) 0.8, Eosinophils # (Auto) 0.6H, Basophils # (Auto) 0.1, Immature Granulocyte # (Auto) 0.0, Sodium Level 138, Potassium Level 4.3, Chloride Level 109H, Carbon Dioxide Level 18L, Anion Gap 11, Blood Urea Nitrogen 26H, Creatinine 1.14, Estimat Glomerular Filtration Rate 47, BUN/Creatinine Ra gail 23, Glucose Level 101, Calcium Level 9.3, Corrected Calcium 9.9, Total Bilirubin 0.3, Aspartate Amino Transf (AST/SGOT) 26, Alanine Aminotransferase (ALT/SGPT) 36, Alkaline Phosphatase 130, Total Protein 6.0L, Albumin 3.3 03/09/20 10:56: Glucometer 133H 03/09/20 15:23: Glucometer 127H 03/09/20 20:10: Glucometer 153H 03/10/20 06:14: Glucometer 138H 03/10/20 10:49: Glucometer 94 Microbiology 03/01/20 C. difficile GDH Antigen & Toxins - Final, Complete Pending Labs Microbiology Date/Time Source Procedure Growth Status 03/01/20 11:00 Stool C. difficile GDH Antigen & Toxins - Final Complete 02/28/20 11:30 Stool C. difficile GDH Antigen & Toxins - Final Complete Laboratory Tests 02/28/20 15:46: Glucometer 146 02/28/20 21:12: Glucometer 147 02/29/20 06:25: Glucometer 120 02/29/20 06:43: White Blood Count 11.1, Red Blood Count 3.43, Hemoglobin 10.3, Hematocrit 32, Mean Corpuscular Volume 94, Mean Corpuscular Hemoglobin 30, Mean Corpuscular Hemoglobin Concent 32, Red Cell Distribution Width 17.8, Platelet Count 309, Mean Platelet Volume 9.5, Immature Granulocyte % (Auto) 1, Neutrophils (%) (Auto) 71, Lymphocytes (%) (Auto) 15, Monocytes (%) (Auto) 6, Eosinophils (%) (Auto) 6, Basophils (%) (Auto) 1, Neutrophils # (Auto) 7.9, Lymphocytes # (Auto) 1.7, Monocytes # (Auto) 0.7, Eosinophils # (Auto) 0.7, Basophils # (Auto) 0.1, Immature Granulocyte # (Auto) 0.1, Sodium Level 135, Potassium Level 4.7, Chloride Level 106, Carbon Dioxide Level 18, Anion Gap 11, Blood Urea Nitrogen 30, Creatinine 1.17, Estimat Glomerular Filtration Rate 45, BUN/Creatinine Ratio 26, Glucose Level 107, Calcium Level 9.5, Corrected Calcium 9.7, Total Bilirubin 0.3, Aspartate Amino Transf (AST/SGOT) 20, Alanine Aminotransferase (ALT/SGPT) 30, Alkaline Phosphatase 110, Total Protein 6.7, Albumin 3.7 02/29/20 12:01: Glucometer 93 02/29/20 15:53: Glucometer 179 02/29/20 21:23: Glucometer 131 03/01/20 06:15: Glucometer 117 03/01/20 11:48: Glucometer 97 03/01/20 15:17: Glucometer 157 03/01/20 20:09: Glucometer 235 03/02/20 05:05: White Blood Count 10.3, Red Blood Count 3.34, Hemoglobin 10.1, Hematocrit 32, Mean Corpuscular Volume 95, Mean Corpuscular Hemoglobin 30, Mean Corpuscular Hemoglobin Concent 32, Red Cell Distribution Width 17.4, Platelet Count 332, Mean Platelet Volume 9.8, Immature Granulocyte % (Auto) 1, Neutrophils (%) (Auto) 73, Lymphocytes (%) (Auto) 13, Monocytes (%) (Auto) 7, Eosinophils (%) (Auto) 6, Basophils (%) (Auto) 1, Neutrophils # (Auto) 7.6, Lymphocytes # (Auto) 1.3, Monocytes # (Auto) 0.7, Eosinophils # (Auto) 0.6, Basophils # (Auto) 0.1, Immature Granulocyte # (Auto) 0.1, Sodium Level 138, Potassium Level 4.6, Chloride Level 110, Carbon Dioxide Level 18, Anion Gap 10, Blood Urea Nitrogen 28, Creatinine 1.12, Estimat Glomerular Filtration Rate 48, BUN/Creatinine Ratio 25, Glucose Level 111, Calcium Level 9.3, Corrected Calcium 9.8, Total Bilirubin 0.3, Aspartate Amino Transf (AST/SGOT) 30, Alanine Aminotransferase (ALT/SGPT) 35, Alkaline Phosphatase 128, Total Protein 6.2, Albumin 3.4 03/02/20 05:13: Glucometer 116 03/02/20 10:57: Glucometer 123 03/02/20 16:54: Glucometer 137 03/02/20 21:17: Glucometer 125 03/03/20 05:23: Glucometer 134 03/03/20 10:52: Glucometer 114 03/03/20 15:39: Glucometer 182 03/03/20 20:19: Glucometer 107 03/04/20 05:30: Glucometer 86 03/04/20 10:50: Glucometer 110 03/04/20 15:08: Glucometer 132 03/04/20 20:07: Glucometer 189 03/05/20 05:31: Glucometer 90 03/05/20 10:45: Glucometer 96 03/05/20 15:59: Glucometer 97 03/05/20 20:31: Glucometer 145 03/06/20 05:51: Glucometer 115 03/06/20 10:43: Glucometer 107 03/06/20 15:22: Glucometer 124 03/06/20 20:12: Glucometer 155 03/07/20 05:45: Glucometer 110 03/07/20 11:31: Glucometer 120 03/07/20 16:54: Glucometer 85 03/07/20 20:27: Glucometer 115 03/08/20 05:41: Glucometer 85 03/08/20 11:37: Glucometer 112 03/08/20 15:44: Glucometer 116 03/08/20 20:23: Glucometer 146 03/09/20 05:48: White Blood Count 8.8, Red Blood Count 3.35, Hemoglobin 9.9, Hematocrit 31, Mean Corpuscular Volume 94, Mean Corpuscular Hemoglobin 30, Mean Corpuscular Hemoglobin Concent 32, Red Cell Distribution Width 16.1, Platelet Count 352, Mean Platelet Volume 9.7, Immature Granulocyte % (Auto) 0, Neutrophils (%) (Auto) 70, Lymphocytes (%) (Auto) 13, Monocytes (%) (Auto) 9, Eosinophils (%) (Auto) 7, Basophils (%) (Auto) 1, Neutrophils # (Auto) 6.1, Lymphocytes # (Auto) 1.2, Monocytes # (Auto) 0.8, Eosinophils # (Auto) 0.6, Basophils # (Auto) 0.1, Immature Granulocyte # (Auto) 0.0, Sodium Level 138, Potassium Level 4.3, Chloride Level 109, Carbon Dioxide Level 18, Anion Gap 11, Blood Urea Nitrogen 26, Creatinine 1.14, Estimat Glomerular Filtration Rate 47, BUN/Creatinine Ratio 23, Glucose Level 101, Calcium Level 9.3, Corrected Calcium 9.9, Total Bilirubin 0.3, Aspartate Amino Transf (AST/SGOT) 26, Alanine Aminotransferase (ALT/SGPT) 36, Alkaline Phosphatase 130, Total Protein 6.0, Albumin 3.3 03/09/20 10:56: Glucometer 133 03/09/20 15:23: Glucometer 127 03/09/20 20:10: Glucometer 153 03/10/20 06:14: Glucometer 138 03/10/20 10:49: Glucometer 94 Discharge Home Medications: Active Scripts Active Hydrocodone-Acetamin 5-325 mg (Hydrocodone/Acetaminophen) 1 Each Tablet 1 Tab PO QID PRN Carvedilol 12.5 Mg Tablet 25 Mg PO BID Amiodarone HCl 200 Mg Tablet 200 Mg PO BID Reported Iron (Ferrous Sulfate) 325 Mg Tablet 325 Mg PO BID Vitamin D3 (Cholecalciferol (Vitamin D3)) 125 Mcg Tablet 125 Mcg PO DAILY Fish Oil 1,200 mg Fish Oil (Fish Oil/Dha/Epa) 1 Each Capsule 2 Each PO BID Calcium 600 + Vit D 200 Tablet (Calcium Carbonate/Vitamin D3) 1 Each Tablet 1 Each PO BID Leflunomide 20 Mg Tablet 20 Mg PO Q48H Pantoprazole Sodium 40 Mg Tablet.dr 40 Mg PO DAILY Atorvastatin Calcium 20 Mg Tablet 20 Mg PO DAILY Amitriptyline HCl 100 Mg Tablet 100 Mg PO HS Fenofibrate 160 Mg Tablet 160 Mg PO DAILY Levothyroxine Sodium 112 Mcg Tablet 112 Mcg PO ,,WE,MON,FR,SA TAKES 1 TAB EVERYDAY EXPECT MONDAYS [place] (Pilocarpine) 5 Mg Tab 10 Mg PO BID TAKES 2 (5MG) TABS Victoza 3-Hussain (Liraglutide) 0.6 Mg/0.1 Ml Pen.injctr 1.8 Mg SQ DAILY Pioglitazone HCl 30 Mg Tablet 30 Mg PO DAILY Oxybutynin Chloride 5 Mg Tablet 5 Mg PO BID Gas Relief 80 (Simethicone) 80 Mg Tab.chew 80 Mg PO UD PRN Aspirin 81 Mg Tab.chew 81 Mg PO DAILY Tramadol HCl 50 Mg Tablet 100 Mg PO TID PRN Cetirizine HCl 10 Mg Tablet 10 Mg PO BID Amlodipine Besylate 10 Mg Tablet 10 Mg PO DAILY Instructions to patient/family Please see electronic discharge instructions given to patient. Diagnosis/Problems Diagnosis/Problems (1) Myopathy (2) C. difficile colitis (3) Atrial fibrillation (4) History of cardioversion (5) Hypertension (6) Diabetes mellitus (7) Hypothyroidism (8) Solitary kidney (9) Ovarian cancer in remission (10) Ileostomy in place Clinical Quality Measures DVT/VTE Risk/Contraindication: Risk Factor Score Per Nursin RFS Level Per Nursing on Admit: 4+=Very High LORENZO MIMS DO Mar 10, 2020 06:15
[2020-03-10] MEDS: inSUlin ASPART (NovoLOG) 1 UNIT/0.01 ML (CHARGE PER UNIT) SC SCH ×2 (06:17→11:29)
[2020-03-10] MEDS: MULTIVIT W/MINERALS TAB (THERAGRAN M) PO SCH (06:19)
[2020-03-10] MEDS: ASCORBIC ACID (VIT C) 500 MG TABLET PO SCH (06:19)
[2020-03-10] MEDS: ENOXAPARIN 40 MG/0.4 ML (LOVENOX) SYR SC SCH (06:19)
[2020-03-10 06:28] VITALS: BP 121/56
[2020-03-10 08:05] VITALS: BP 117/59
[2020-03-10] MEDS: ASPIRIN 81 MG CHEW (CHILDREN'S ASA) PO SCH (08:05)
[2020-03-10] MEDS: AMIODARONE 200 MG (CORDARONE) TAB PO SCH (08:05)
[2020-03-10] MEDS: amLODIPine 10 MG (NORVASC) TAB PO SCH (08:05)
[2020-03-10] MEDS: LORATADINE (CLARITIN) 10 MG TAB PO SCH (08:05)
[2020-03-10] MEDS: SIMETHICONE 80 MG (MYLICON) CHEW PO SCH (08:05)
[2020-03-10] MEDS: CARVEDILOL 12.5 MG (COREG) TABLET PO SCH (08:05)
[2020-03-10] MEDS: GENTAMICIN SULFATE TP SCH (08:06)
[2020-03-10] MEDS: DAKIN'S FULL STRENGTH (0.5%) 480 ML BTL TOP SCH (08:06)
--- NOTE | 2020-03-10 08:16 | Therapy Team Discharge Summary ---
Therapy Discharge Summary Discharge Recommendations Date of Discharge Physical Therapy Patient came to rehab with myopathy. Upon evaluation patient performed bed mobility with SBA, supine <-> sit CGA, sit <-> stand CGA, transfers and car transfer CGA, ambulated 150' with a rolling walker with CGA (including 50' with at least 2 turns of 90 degrees and 10' over an uneven surface), and went up and down 1 step using a rolling walker with SBA. Patient has been performing bed mobility and transfer training, balance and endurance training, functional strengthening, stair training, gait training, and education. Patient has made good progress and has met her group home goals except for stairs. Now, patient performs bed mobility and transfers with independence, ambulates 150' with a rolling walker with independence (including 50' with at least 2 turns of 90 degrees and 10' over an uneven surface), and can go up and down 4 steps using 2 handrails with CGA. Patient is being discharged from this facility today and will be discharged from PT at this time. Occupational Therapy Impaired Self-Care Skills PT Mcfp Goals Banking Supervisor Goals PT Mcfp Goals Time Frame: Mar 13, 2020 Roll Left to Right (QC): 6 Sit to Lying (QC): 6 Lying-Sitting on Side/Bed(QC): 6 Sit to Stand (QC): 6 Chair/Ksg-zw-Vidqm Xfer(QC): 6 Car Transfer (QC): 6 Does the Patient Walk: Yes Walk 10 feet (QC): 6 Walk 10ft-Uneven Surface(QC): 6 Walk 50ft with 2 Turns (QC): 6 Walk 150 ft (QC): 6 Does the Pt use WC or Scooter?: No Wheel 50 feet with 2 turns (QC: 9 1 Step (curb) (QC): 6 4 Steps (QC): 6 12 Steps (QC): 6 Picking up an Object (QC): 6 OT Mcfp Goals Mcfp Goals Time Frame: Mar 13, 2020 Eating (QC): 6 (met) Oral Hygiene (QC): 6 (met) Shower/Bathe Self (QC): 6 (et) Upper Body Dressing (QC): 6 (met) Lower Body Dressing (QC): 6 (met) On/Off Footwear (QC): 6 (me) Toileting Hygiene (QC): 6 (met) Toilet/Commode Transfer (QC): 6 Demonstrate ability to change colonoscopy bag with s/u-IND. Additional Goals: 1-Demonstrate ADL Tasks, 2-Verbalize Understanding, 3-Impro veStrength/Maikel 1=Demonstrate adherence to instructed precautions during ADL tasks. 2=Patient will verbalize/demonstrate understanding of assistive devices/modifications for ADL. 3=Patient will improve strength/tolerance for activity to enable patient to perform ADL's. RANI DUMONT PT Mar 10, 2020 08:16
--- NOTE | 2020-03-10 10:34 | NUR ---
CALL TO [facility]. [facility] TO DC HOME. ORDERS TO F/U WITH DR. HANSON IN APPROXIMATELY 1 MONTH. F/U APPOITNMENT SCHEDULED FOR 03/31/20 AT 09:00 AM.
--- NOTE | 2020-03-10 10:46 | NUR ---
CM/SS DISCHARGE Patient discharged home as planned. HHC: Finalized with [facility] for RN PT OT. Agency advised to review JAY notes from Wound Care/Dominique Virk regarding education/demonstration/supplies for ostomy, provided her phone contact for assigned agency RN to have direct contact as needed. DME: [employer] corporate representative here yesterday at patient bedside along with Dominique and mortgage loan underwriter to reiterate and advise about ostomy supply placement and use. Indications are that supply shipment was left at patient former vacant address but was not found there, patient and daughter are partnering with Dominique to track package current whereabouts. Patient will be sent home with adequate supplies for any interim needs. Patient has self-coordinated her family transport home. Unit RN aware of all plans and timelines, she is finalizing followup appointments and advising patient of discharge orders/instructions.
[2020-03-10 11:30] VITALS: BP 117/59
--- NOTE | 2020-03-11 14:34 | Therapy Team Discharge Summary ---
Therapy Discharge Summary Discharge Recommendations Date of Discharge Mar 10, 2020 at 11:43 Occupational Therapy Pt admitted to ARU with dx of colitis with colectomy, debility. At OF, pt was independent wtih all ADLs without AE. Upon admission to ARU, pt was independent with eating and oral hygiene, required CGA with showering, setup upper body dressing, CGA lower body dressing, min A footwear, and CGA toileting. OT txs focus on increasing BUE strength and functional endurance, and increasing safety and independence with ADLs and functional mobility. At discharge, pt was independent with all ADLs, meeting all goals. Pt discharged from facility, thus d/c from OT. Impaired Self-Care Skills PT Correction Goals Correction Goals PT Arcade Game Technician Goals Time Frame: Mar 13, 2020 Roll Left to Right (QC): 6 Sit to Lying (QC): 6 Lying-Sitting on Side/Bed(QC): 6 Sit to Stand (QC): 6 Chair/Auf-vj-Qiiwd Xfer(QC): 6 Car Transfer (QC): 6 Does the Patient Walk: Yes Walk 10 feet (QC): 6 Walk 10ft-Uneven Surface(QC): 6 Walk 50ft with 2 Turns (QC): 6 Walk 150 ft (QC): 6 Does the Pt use WC or Scooter?: No Wheel 50 feet with 2 turns (QC: 9 1 Step (curb) (QC): 6 4 Steps (QC): 6 12 Steps (QC): 6 Picking up an Object (QC): 6 OT Arcade Game Technician Goals Correction Goals Time Frame: Mar 13, 2020 Eating (QC): 6 (met) Oral Hygiene (QC): 6 (met) Shower/Bathe Self (QC): 6 (et) Upper Body Dressing (QC): 6 (met) Lower Body Dressing (QC): 6 (met) On/Off Footwear (QC): 6 (me) Toileting Hygiene (QC): 6 (met) Toilet/Commode Transfer (QC): 6 (met) Demonstrate ability to change colonoscopy bag with s/u-IND. Additional Goals: 1-Demonstrate ADL Tasks, 2-Verbalize Understanding, 3- ImproveStrength/Maikel 1=Demonstrate adherence to instructed precautions during ADL tasks. 2=Patient will verbalize/demonstrate understanding of assistive devices/modifications for ADL. 3=Patient will improve strength/tolerance for activity to enable patient to perform ADL's. DELANEY CHILDRESS OT Mar 11, 2020 14:34
== END 2020-03-10 11:43 | disposition home health service (06) | DRG 92 ==
PROVIDERS: ADMIT Internal Medicine; ATTEND Internal Medicine
DX: G72.89 Other specified myopathies (principal); Q60.0 Renal agenesis, unilateral; I48.91 Unspecified atrial fibrillation; I10 Essential (primary) hypertension; E11.9 Type 2 diabetes mellitus without complications; E03.9 Hypothyroidism, unspecified; E78.5 Hyperlipidemia, unspecified; R19.7 Diarrhea, unspecified; Z87.891 Personal history of nicotine dependence; Z93.2 Ileostomy status; Z85.43 Personal history of malignant neoplasm of ovary; Z79.4 Long term (current) use of insulin
CPT/HCPCS: 36415; 80053; 82962; 85025; 87324; 87449; 93005

== ENCOUNTER → 2020-03-17 | Outpatient (CLI) | payer MEDICARE ==
[~2020-03-17] MED LIST changes: +ACHD5005 PO; -ALPRAZolam 0.25 MG (XANAX) TAB PO PRN; +AMIO200T6 PO; +AMLO-251 PO; +ARGI1POW23 PO; +ASCO-262 PO; +ASPI-999 PO; +ATOR20TA66 PO; +ATOR40TA70 PO; -BISACODYL 10 MG SUPP (DULCOLAX) PR PRN; +CALC-250 PO; +CALC1TAB84 PO; -CALCIUM CARBONATE 500 MG (TUMS) TAB.CHEW PO PRN; +CARV12.53 PO; +CETI10TA17 PO; +CRV25T PO; -DOCUSATE SODIUM 100 MG (COLACE) CAP PO PRN; +FENO160T12 PO; +FERR-84 PO; +FISH1CAP15 PO; -FLEET ENEMA ADULT 1 EA BTL PR PRN; +GENT30OI2 TP; +INSU100V39 SQ; +INSU100V6 SQ; -LACTULOSE SYRUP 10GM/15ML (ENULOSE) 30ML UDC PO PRN; +LEFL20TA18 PO; +LEVO112T55 PO; +LISI-552 PO; -LOPERAMIDE 2 MG (IMODIUM) TABLET PO PRN; +MULT-422 PO; -ONDANSETRON 4 MG (ZOFRAN) ORAL DISSOLVE TAB PO PRN; +OXYB5TAB13 PO; +PANT40TA52 PO; +PANT40VI IV; +PIOG30TA71 PO; +SIME80TA PO; +SIME80TA16 PO; +TRAM50TA3 PO; -diphenhydrAMINE 25 MG TAB (BENADRYL) PO PRN; -guaiFENesin/CODEINE (ROBITUSSIN AC) 10ML UDC PO PRN
== END ==
LOC: WOUNDCARE 13:22
PROVIDERS: ATTEND Surgery
DX: S31.102A Unspecified open wound of abdominal wall, epigastric region without penetration into peritoneal cavity, initial encounter (principal); I96 Gangrene, not elsewhere classified; L98.492 Non-pressure chronic ulcer of skin of other sites with fat layer exposed; K65.9 Peritonitis, unspecified
CPT/HCPCS: A6197; G0463; 99212

== ENCOUNTER → 2020-03-25 | Outpatient (CLI) | payer MEDICARE ==
[2020-03-25 16:34] LABS: BASOPHILS % (AUTO) 0 % (0-10); EOSINOPHILS # (AUTO) 0.2 10^3/uL (0.0-0.3); EOSINOPHILS % (AUTO) 2 % (0-10); HEMATOCRIT 33 % (35-52); HEMOGLOBIN 10.2 g/dL (11.5-16.0); LYMPHOCYTES # (AUTO) 0.7 10^3/uL (1.0-4.0); LYMPHOCYTES % (AUTO) 8 % (12-44); MEAN CORPUSCULAR HEMOGLOBIN 28 pg (25-34); MEAN CORPUSCULAR HGB CONC 31 g/dL (32-36); MEAN CORPUSCULAR VOLUME 92 fL (80-99); MEAN PLATELET VOLUME 9.7 fL (9.0-12.2); MONOCYTES # (AUTO) 0.6 10^3/uL (0.0-1.0); MONOCYTES % (AUTO) 6 % (0-12); NEUTROPHILS % (AUTO) 83 % (42-75); PLATELET COUNT 381 10^3/uL (130-400); WHITE BLOOD COUNT 9.6 10^3/uL (4.3-11.0)
[2020-03-25 16:40] LABS: ALBUMIN 3.6 GM/DL (3.2-4.5); POTASSIUM 5.6 MMOL/L (3.6-5.0)
[2020-03-25 16:41] LABS: CALCIUM 9.9 MG/DL (8.5-10.1)
[2020-03-25 16:42] LABS: TOTAL PROTEIN 7.1 GM/DL (6.4-8.2)
[2020-03-25 16:44] LABS: BILIRUBIN,TOTAL 0.3 MG/DL (0.1-1.0)
[2020-03-25 16:46] LABS: CREATININE SERUM 2.37 MG/DL (0.60-1.30)
[2020-03-25 16:51] LABS: ANISOCYTOSIS SLIGHT; BAND NEUTROPHILS 1 %; BASOPHILS % (MANUAL) 0 %; EOSINOPHILS % (MANUAL) 1 %; HYPOCHROMASIA SLIGHT; LYMPHOCYTES % (MANUAL) 8 %; MONOCYTES % (MANUAL) 4 %; NEUTROPHILS % (MANUAL) 85 %; POIKILOCYTOSIS SLIGHT; POLYCHROMASIA SLIGHT; REACTIVE LYMPHOCYTES 1 %
== END ==
LOC: LAB 16:03
PROVIDERS: ATTEND Surgery
DX: D64.9 Anemia, unspecified (principal); L98.492 Non-pressure chronic ulcer of skin of other sites with fat layer exposed; E44.0 Moderate protein-calorie malnutrition; S31.102A Unspecified open wound of abdominal wall, epigastric region without penetration into peritoneal cavity, initial encounter; K65.9 Peritonitis, unspecified
CPT/HCPCS: 36415; 80053; 84134; 85007; 85027

== ENCOUNTER → 2020-03-25 | Outpatient (CLI) | payer MEDICARE | LOC: WOUNDCARE 14:23 | PROVIDERS: ATTEND Surgery | DX: S31.102A Unspecified open wound of abdominal wall, epigastric region without penetration into peritoneal cavity, initial encounter (principal); L98.492 Non-pressure chronic ulcer of skin of other sites with fat layer exposed; D64.9 Anemia, unspecified; K65.9 Peritonitis, unspecified; E44.0 Moderate protein-calorie malnutrition; I96 Gangrene, not elsewhere classified | CPT/HCPCS: 11042; A6197; G0463 ==

== ENCOUNTER → 2020-04-27 | Outpatient (CLI) | payer MEDICARE | LOC: WOUNDCARE 09:14 | PROVIDERS: ATTEND Surgery | DX: L98.492 Non-pressure chronic ulcer of skin of other sites with fat layer exposed (principal); E44.1 Mild protein-calorie malnutrition; E11.622 Type 2 diabetes mellitus with other skin ulcer; I96 Gangrene, not elsewhere classified | CPT/HCPCS: 99212 ==

== ENCOUNTER 2020-04-28 21:43 | Emergency (ER) | payer MEDICARE ==
[~2020-04-28] VITALS: Ht 157.4 cm; Wt 58.9 kg
[2020-04-28 21:55] VITALS: BP 167/76
--- NOTE | 2020-04-28 22:32 | ED Integumentary General ---
General Chief Complaint: Catheter/Drain/Tube Problems Stated Complaint: BLEEDING FROM STOMA Nursing Triage Note: Pt to ED in wheelchair. Pt reports having a stoma placed January 21, 2020 and reports problems ever since. Pt c/o stoma leaking and irritated skin under bag. Pt's skin reddened and there is breakdown. Pt sees Dr. Bautista. Pt reports multiple falls recently. 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 BRYANT. PT STATES SHE WAS SENT HERE FOR REHAB, BUT HAS BEEN HOME FOR MONTHS C/O ONGOING SKIN BREAKDOWN AROUND STOMA, AND HAS BEEN SEEING DR. BAUTISTA IN WOUND CARE FOR THIS PROBLEM WELL DELAYED HEALING WITH MIDLINE SURGICAL INCISION --SURGICAL INCISION IS ALMOST COMPLETELY HEALED. STATES SHE HAS BEEN HAVING SOME BLEEDING FROM THE SKIN AROUND THE STOMA NO INCREASED PAIN NO INCREASED REDNESS OR SWELLING AROUND THE SITE, OR DRAINAGE FROM WOUNDS NO BLOOD IN STOOL, AND STOOL IS NORMAL CONSISTENCY NO FEVER NO ACTUAL ABDOMINAL PAIN NO NAUSEA/VOMITING. PT STATES SHE USES STOMA POWDER WHEN SHE CHANGES THE STOMA STATES SHE WAS USING A BARRIER RING AT STOMA SITE--STATES SHE RAN OUT ON , AND HAS NOT ATTEMPTED TO GET MORE--STATES "THEY SENT ME HOME WITH A COUPLE WHEN I GOT OUT OF THE HOSPITAL" STATES SHE WAS USING "SKIN PREP"--THEN LATER STATES SHE HAS NOT USED ANY SINCE SHE GOT OUT OF THE HOSPITAL--STATES THEY JUST USED IT WHEN SHE WAS IN THE HOSPITAL, AND HAS NOT ATTEMPTED TO GET ANY TO USE AT HOME SAW DR. BAUTISTA YESTERDAY FOR THIS PROBLEM--NO CHANGE IN TREATMENT, PER PT SAW DR. TRIANA AT [facility] TODAY FOR THIS PROBLEM AT 1700--"THEY TOLD ME TO COME HERE IF IT GOT WORSE" PT STATES SHE CALLED DR. BRYANT, HER SURGEON AT [facility] AND STATES SHE WAS TOLD SHE DID NOT NEED TO FOLLOW UP PT STATES THAT PROBLEM TONIGHT IS NOT ANY DIFFERENT TONIGHT. Allergies and Home Medications Allergies Coded Allergies: Penicillins (Verified Allergy, Unknown, 02/28/20) raspberry (Verified Allergy, Unknown, 02/28/20) Home Medications Amiodarone HCl 200 Mg Tablet, 200 MG PO BID Prescribed by: LORENZO MIMS on 03/10/20557 Amitriptyline HCl 100 Mg Tablet, 100 MG PO HS, (Reported) Amlodipine Besylate 10 Mg Tablet, 10 MG PO DAILY, (Reported) Aspirin 81 Mg Tab.chew, 81 MG PO DAILY, (Reported) Atorvastatin Calcium 20 Mg Tablet, 20 MG PO DAILY, (Reported) Calcium Carbonate/Vitamin D3 1 Each Tablet, 1 EACH PO BID, (Reported) Carvedilol 12.5 Mg Tablet, 25 MG PO BID Prescribed by: LORENZO MIMS on 03/10/20557 Cetirizine HCl 10 Mg Tablet, 10 MG PO BID, (Reported) Cholecalciferol (Vitamin D3) 125 Mcg Tablet, 125 MCG PO DAILY, (Reported) Fenofibrate 160 Mg Tablet, 160 MG PO DAILY, (Reported) Ferrous Sulfate 325 Mg Tablet, 325 MG PO BID, (Reported) Fish Oil/Dha/Epa 1 Each Capsule, 2 EACH PO BID, (Reported) Hydrocodone/Acetaminophen 1 Each Tablet, 1 TAB PO QID PRN for PAIN-SEVERE (8-10) Prescribed by: LORENZO MIMS on 03/10/20557 Leflunomide 20 Mg Tablet, 20 MG PO Q48H, (Reported) Levothyroxine Sodium 112 Mcg Tablet, 112 MCG PO GUILLORY,TU,WE,REFUGIO,FR,SA, (Reported) TAKES 1 TAB EVERYDAY EXPECT MONDAYS Liraglutide 0.6 Mg/0.1 Ml Pen.injctr, 1.8 MG SQ DAILY, (Reported) Oxybutynin Chloride 5 Mg Tablet, 5 MG PO BID, (Reported) Pantoprazole Sodium 40 Mg Tablet.dr, 40 MG PO DAILY, (Reported) Pilocarpine 5 Mg Tab, 10 MG PO BID, (Reported) TAKES 2 (5MG) TABS Pioglitazone HCl 30 Mg Tablet, 30 MG PO DAILY, (Reported) Simethicone 80 Mg Tab.chew, 80 MG PO UD PRN for GAS, (Reported) Tramadol HCl 50 Mg Tablet, 100 MG PO TID PRN for PAIN-MODERATE (5-7), (Reported) Patient Home Medication List Home Medication List Reviewed: Yes Review of Systems Review of Systems Constitutional: no symptoms reported Respiratory: no symptoms reported Cardiovascular: no symptoms reported Gastrointestinal: see HPI Genitourinary: no symptoms reported Musculoskeletal: no symptoms reported Skin: see HPI Psychiatric/Neurological: No Symptoms Reported Past Craonvx-Vubrqo-Esnjtm Hx Past Med/Social Hx: Reviewed and Corrections made Patient Social History Alcohol Use: Denies Use Recreational Drug Use: No Smoking Status: Former Smoker Type Used: Cigarettes Former Smoker, Quit: Jul 28, 1984 2nd Hand Smoke Exposure: No Recent Foreign Travel: No Contact w/Someone Who Travel: No Recent Infectious Disease Expo: No Immunizations Up To Date Date of Pneumonia Vaccine: Feb 06, 2020 Date of Influenza Vaccine: Feb 05, 2020 Seasonal Allergies Seasonal Allergies: No Past Medical History Surgeries: Yes Abdominal, Bowel Surgery, Cardiac, Gallbladder, Hysterectomy, Nephrectomy, Oophorectomy Respiratory: No Cardiac: Yes (AFIB/[facility]/CARDIOVERSION 12/2019; ) Atrial Fibrillation, High Cholesterol, Hypertension Neurological: No Reproductive Disorders: Yes (OVARIAN CANCER) FACULTY HEAD History: Hysterectomy, Menopausal Sexually Transmitted Disease: No HIV/AIDS: No Genitourinary: Yes (HAS ONLY 1 KIDNEY (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 HAD REMOVED CAUSE BLOOD VESSELS WRAPPED ) Bladder Infection Gastrointestinal: Yes (PERMANENT ILEOSTOMY/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/2019;[facility]) Colitis, Gastroesophageal Reflux, Liver Disease/Jaundice, C-Diff, Gall Bladder Disease Musculoskeletal: Yes (RA/OSTEOARTHRITIS) Arthritis, Rheumatoid Arthritis Endocrine: Yes Hypothyroidsim, Diabetes, Non-Insulin dep HEENT: No Cancer: Yes Ovarian Did You Recieve Any Treatments: Yes What Type of Treatment Did You: Surgical Intervention S/P OPEN TOTAL ABDOMINAL HYSTERECTOMY WITH BILATERAL SALPINGO-OOPHORECTOMY 1971 Psychosocial: No Integumentary: Yes (DELAYED HEALING OF SURGICAL WOUND; PERISTOMAL SKIN BREAKDO WN) Blood Disorders: No Adverse Reaction/Blood Tranf: No Family Medical History Arthritis 19 MOTHER Cardiovascular disease 19 MOTHER Diabetes mellitus 19 FATHER 19 MOTHER PAST MEDICAL /SURGICAL HISTORY: -12/2019--HAD SEVERE C. DIFFICILE COLITIS--ADMITTED TO [facility] 01/21/20. PT HAD SYNCOPAL EPISODE WITH LOSS OF PULSE AND CPR/RESUSCITATION FOR APPROXIMATELY 2 MINUTES WITH [facility]. DURING THAT STAY SHE HAD ATRIAL FIBRILLATION WITH [facility] THAT REQUIRED CARDIOVERSION PT UNDERWENT SUBTOTAL COLECTOMY WITH PERMANENT ILEOSTOMY. PT REPORTS THAT SHE WAS ON VENTILATOR FOR 10 DAYS PT WAS TRANSFERRED FROM [facility] TO [facility], AND WAS THERE FROM 02/08/20-02/28/20, THEN TRANSFERRED HERE FOR REHAB FROM 02/28/20-03/10/20. SEEING WOUND CARE FOR DELAYED HEALING OF MIDLINE SURGICAL WOUND AND SKIN BREAKDOWN AROUND STOMA. 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 JOE -SEBACEOUS CYST OF ABDOMINAL WALL REMOVED 05/[address] JOE -SUBTOTAL COLECTOMY WITH PERMANENT ILEOSTOMY 12/2019 AT [facility] BY [address]. BRYANT Physical Exam Vital Signs Vital Signs - First Documented 04/28/20 21:55 Temp 36.4 Pulse 88 Resp 18 B/P (MAP) 167/76 (106) Pulse Ox 100 O2 Delivery Room Air Capillary Refill : Less Than 3 Seconds General Appearance: WD/WN, no apparent distress Respiratory: normal breath sounds Gastrointestinal: soft, other (STOMA TO RIGHT MID ABDOMEN, WITH NORMAL STOOL IN BAG. MIDLINE INCISION WITH NEAR-COMPLETE HEALING OF INCISION. PERISTOMAL SKIN WITH MUCH BREAKDOWN AND SUPERFICIAL EXCORIATIONS, WITH VERY SCANT AMOUT OF BLOOD ON GAUZE FROM VERY SUPERFICAL MACERATED SKIN JUST INFERIOR TO STOMA. NO ACTIVE BLEEDING. NO SIGNS OF INFECTION, NO PURULENT DRAINAGE. NO STREAKS. PT HAS LARGE OLD BRUISE TO RIGHT ABDOMEN. ) Extremities: normal inspection Neurologic/Psychiatric: no motor/sensory deficits, alert, normal mood/affect Progress/Results/Core Measures Results/Orders Vital Signs/I&O 04/28/20 21:55 Temp 36.4 Pulse 88 Resp 18 B/P (MAP) 167/76 (106) Pulse Ox 100 O2 Delivery Room Air Blood Pressure Mean: 106 Progress Progress Note : Progress Note ALLEVYN NON-ADHESIVE HYDROCELLULAR FOAM DRESSING PLACED AROUND STOMA, AFTER CLEANING AND APPLYING SKIN PREP TO AREA. CLING GAUZE WRAPPED AROUND ABDOMEN AND USED TO HOLD DRESSING IN PLACE, NO TAPE OR ADHESIVE WAS USED. Departure Impression Primary Impression: chronic peristomal skin breakdown Disposition: HOME, SELF-CARE Condition: Stable Departure-Patient Inst. Referrals: KIMBERLY HANNON (PCP) Primary Care Physician KIMBERLY BAUTISTA MD Patient Instructions: How to Care for Your Ostomy, Adult, Ileostomy Care Add. Discharge Instructions: CONTINUE CURRENT MEDICATIONS PRESCRIBED FOLLOW UP WITH DR. BAUTISTA TOMORROW FOR FURTHER CARE All discharge instructions reviewed with patient and/or family. Voiced understanding. RAMSES STAPLETON DO Apr 28, 2020 22:32
== END 2020-04-28 22:44 | disposition home or self-care (01) ==
LOC: EDUNIT# 21:43 → ER 21:44
DX: L98.491 Non-pressure chronic ulcer of skin of other sites limited to breakdown of skin (principal); I48.91 Unspecified atrial fibrillation; I10 Essential (primary) hypertension; E78.00 Pure hypercholesterolemia, unspecified; K21.9 Gastro-esophageal reflux disease without esophagitis; E03.9 Hypothyroidism, unspecified; E11.9 Type 2 diabetes mellitus without complications; Z82.61 Family history of arthritis; Z82.49 Family history of ischemic heart disease and other diseases of the circulatory system; Z83.3 Family history of diabetes mellitus; Z85.43 Personal history of malignant neoplasm of ovary; Z87.891 Personal history of nicotine dependence; Z88.0 Allergy status to penicillin; Z79.890 Hormone replacement therapy; Z79.82 Long term (current) use of aspirin
CPT/HCPCS: 99282

== ENCOUNTER → 2020-05-19 | Outpatient (CLI) | payer MEDICARE | LOC: WOUNDCARE 14:30 | PROVIDERS: ATTEND Surgery | DX: L98.492 Non-pressure chronic ulcer of skin of other sites with fat layer exposed (principal); E44.1 Mild protein-calorie malnutrition; E11.622 Type 2 diabetes mellitus with other skin ulcer | CPT/HCPCS: A6197; G0463; 99212 ==

== ENCOUNTER → 2020-06-15 | Outpatient (CLI) | payer MEDICARE ==
[~2020-06-15] MED LIST changes: -LISI-552 PO; +LISI20TA26 PO
== END ==
LOC: WOUNDCARE 10:05
PROVIDERS: ATTEND Surgery
DX: L98.492 Non-pressure chronic ulcer of skin of other sites with fat layer exposed (principal); I96 Gangrene, not elsewhere classified; E44.1 Mild protein-calorie malnutrition; E11.622 Type 2 diabetes mellitus with other skin ulcer
CPT/HCPCS: 99213

== ENCOUNTER → 2020-06-29 | Outpatient (CLI) | payer MEDICARE | LOC: WOUNDCARE 10:22 | PROVIDERS: ATTEND Surgery | DX: L98.492 Non-pressure chronic ulcer of skin of other sites with fat layer exposed (principal); E44.1 Mild protein-calorie malnutrition; E11.622 Type 2 diabetes mellitus with other skin ulcer | CPT/HCPCS: 99212 ==

== ENCOUNTER → 2020-08-06 | Outpatient (CLI) | payer MEDICARE ==
--- NOTE | 2020-08-06 12:19 | Diagnostic Imaging Report ---
PROCEDURE: CT abdomen and pelvis without contrast. TECHNIQUE: Multiple contiguous axial images were obtained through the abdomen and pelvis without the use of intravenous contrast. Auto Exposure Controls were utilized during the CT exam to meet ALARA standards for radiation dose reduction. INDICATION: Abdominal wall abscess. No prior studies are available for comparison. The lung bases are clear. The liver is unremarkable. Gallbladder is surgically absent. There is no biliary ductal dilatation. The pancreas and spleen are unremarkable. No adrenal mass is detected. There is a solitary left kidney. Aorta is calcified but nonaneurysmal. There is an ostomy in the right lower quadrant. There is thickening of the midline at anterior abdominal wall likely from patient's incision. There is an area of minimal low density within a triangular-shaped collection in the anterior abdominal wall midline measuring 3.2 x 2.5 cm. A small postoperative fluid collection or abscess cannot be entirely excluded. No gas within the collection is seen. Intra-abdominal bowel loops are normal caliber. There is no obstruction. Bladder is unremarkable. IMPRESSION: Midline anterior abdominal wall fluid collection or phlegmon, as described. No other significant abnormality is detected. Dictated by: Dictated on workstation # [id number]
== END ==
LOC: RAD 10:01
PROVIDERS: ATTEND Surgery
DX: L02.211 Cutaneous abscess of abdominal wall (principal)
CPT/HCPCS: 74176

== ENCOUNTER 2020-08-07 12:32 | Outpatient (CLI) | payer MEDICARE ==
[2020-08-07 13:17] LABS: HEMOGLOBIN 9.5 g/dL (11.5-16.0); MEAN PLATELET VOLUME 10.9 fL (9.0-12.2); WHITE BLOOD COUNT 8.7 10^3/uL (4.3-11.0)
[2020-08-07] MEDS ORDERED: LIDOCAINE 1% INJ 20 ML 20 ML VIAL INJ ONE (13:30)
[2020-08-07 13:31] LABS: PROTHROMBIN TIME PATIENT 13.7 SEC (12.2-14.7)
[2020-08-07] MEDS ORDERED: LIDOCAINE 1% INJ 20 ML 20 ML VIAL ONE (13:44)
[2020-08-07 14:20] VITALS: BP 126/69
[2020-08-07 14:25] VITALS: BP 139/70
[2020-08-07 14:30] VITALS: BP 127/77
[2020-08-07 14:43] VITALS: BP_SYST 129; BP_SYST 152; BP_DIAS 84; BP_DIAS 90
--- NOTE | 2020-08-07 14:53 | Diagnostic Imaging Report ---
INDICATION: ABD WALL ABSCESS TECHNIQUE: All CT scans use one or more of the following dose optimizing techniques: automated exposure control, MA and/or KvP adjustment based on patient size and exam type or iterative reconstruction. Patient brought to the CT suite placed on table in the supine position. Axial imaging through abdomen was performed to evaluate appropriate entry site. Anterior abdomen was then prepped and draped in the usual sterile fashion. Small amount of 1% lidocaine was utilized for local anesthesia. A Yueh needle was advanced into the midline anterior abdominal wall fluid collection. Only approximately 2 to 3 mL of bloody fluid could be removed. The needle was repositioned at multiple locations and only small amount of fluid was obtained. Therefore a drain could not be placed. IMPRESSION: Midline anterior abdominal wall fluid collection aspiration, as described. Dictated by: Dictated on workstation # [id number]
== END 2020-08-07 15:05 | disposition home or self-care (01) ==
LOC: SDC 12:32
PROVIDERS: ATTEND Surgery
DX: L02.211 Cutaneous abscess of abdominal wall (principal)
CPT/HCPCS: 77012; 85027; 85610; 85730; 87070; 87075; 87077; 87186; 87205; C1729; 36415

== ENCOUNTER → 2020-08-17 | Outpatient (CLI) | payer MEDICARE ==
[2020-08-17 13:05] LABS: BILIRUBIN,URINE NEGATIVE (NEGATIVE); CLARITY,URINE CLOUDY; COLOR,URINE YELLOW; GLUCOSE, URINE (UA) NEGATIVE (NEGATIVE); KETONES,URINE NEGATIVE (NEGATIVE); LEUKOCYTE ESTERASE ,URINE 3+ (NEGATIVE); NITRITE,URINE NEGATIVE (NEGATIVE); PH,URINE 5.5 (5-9); PROTEIN,URINE NEGATIVE (NEGATIVE)
[2020-08-17 13:10] LABS: HEMOGLOBIN 9.5 g/dL (11.5-16.0); MEAN PLATELET VOLUME 10.3 fL (9.0-12.2); WHITE BLOOD COUNT 5.7 10^3/uL (4.3-11.0)
[2020-08-17 13:22] LABS: URINE CREATININE FOR RATIO 21 MG/DL (30-125); URINE PROTEIN FOR RATIO ONLY < 6 MG/DL (6-12)
[2020-08-17 13:23] LABS: BACTERIA,URINE MODERATE /HPF; RBC,URINE 0-2 /HPF; SQUAMOUS EPITHELIAL CELL,UR 0-2 /HPF; WBC,URINE 25-50 /HPF
[2020-08-17 13:54] LABS: CALCIUM 9.7 MG/DL (8.5-10.1); CREATININE SERUM 2.48 MG/DL (0.60-1.30); PHOSPHORUS 4.2 MG/DL (2.3-4.7); POTASSIUM 4.6 MMOL/L (3.6-5.0); URIC ACID 7.7 MG/DL (2.6-7.2)
== END ==
LOC: LAB 12:15
PROVIDERS: ATTEND Internal Medicine Nephrology
DX: N39.0 Urinary tract infection, site not specified (principal)
CPT/HCPCS: 36415; 80069; 81000; 82570; 84156; 84550; 85027; 87088

== ENCOUNTER 2020-08-29 08:40 | Outpatient (RCR) | payer MEDICARE ==
[2020-08-20] MEDS: CEFEPIME 2,000 MG/SWFI 20 ML IV PUSH IV SCH ×2 (16:35)
[2020-08-20 17:01] VITALS: BP 175/85
[2020-08-21 12:08] VITALS: BP 139/83
[2020-08-21] MEDS: CEFEPIME 2,000 MG/SWFI 20 ML IV PUSH IV SCH ×2 (12:55)
[2020-08-22 09:05] VITALS: BP 109/60
[2020-08-22] MEDS: CEFEPIME 2,000 MG/SWFI 20 ML IV PUSH IV SCH ×2 (09:15)
[2020-08-23] MEDS: CEFEPIME 2,000 MG/SWFI 20 ML IV PUSH IV SCH ×2 (09:15)
[2020-08-23 09:21] VITALS: BP 134/77
[2020-08-24 09:20] VITALS: BP 130/68
[2020-08-24] MEDS: CEFEPIME 2,000 MG/SWFI 20 ML IV PUSH IV SCH ×2 (09:28)
[2020-08-25] MEDS: CEFEPIME 2,000 MG/SWFI 20 ML IV PUSH IV SCH ×2 (09:39)
[2020-08-25 09:45] VITALS: BP 104/70
[2020-08-26] MEDS: CEFEPIME 2,000 MG/SWFI 20 ML IV PUSH IV SCH ×2 (09:14)
[2020-08-26 09:30] VITALS: BP 96/63
[2020-08-27] MEDS: CEFEPIME 2,000 MG/SWFI 20 ML IV PUSH IV SCH ×2 (09:16)
[2020-08-27 09:26] VITALS: BP 128/65
[2020-08-28] MEDS: CEFEPIME 2,000 MG/SWFI 20 ML IV PUSH IV SCH ×2 (10:01)
[2020-08-28 10:15] VITALS: BP 150/75
[~2020-08-29] VITALS: Ht 157 cm; Wt 58.9 kg
[~2020-08-29 08:40] MED LIST changes: +CEFEPIME 2 GM/20 ML (MAXIPIME) VIAL ONE
[2020-08-29] MEDS: CEFEPIME 2,000 MG/SWFI 20 ML IV PUSH IV SCH ×2 (08:42)
[2020-08-29 08:48] VITALS: BP 115/67
== END 2020-08-29 08:56 | disposition home or self-care (01) ==
LOC: SDC 08:40
PROVIDERS: ATTEND Surgery
DX: Z45.2 Encounter for adjustment and management of vascular access device (principal)
CPT/HCPCS: 36569; 76937; 96374

== ENCOUNTER → 2020-09-01 | Outpatient (CLI) | payer MEDICARE ==
[~2020-09-01] MED LIST changes: -CEFEPIME 2 GM/20 ML (MAXIPIME) VIAL ONE
[2020-09-01 15:23] LABS: POTASSIUM 4.7 MMOL/L (3.6-5.0)
[2020-09-01 15:24] LABS: ALBUMIN 4.2 GM/DL (3.2-4.5)
[2020-09-01 15:25] LABS: CALCIUM 10.8 MG/DL (8.5-10.1)
[2020-09-01 15:26] LABS: TOTAL PROTEIN 7.6 GM/DL (6.4-8.2)
[2020-09-01 15:28] LABS: BILIRUBIN,TOTAL 0.2 MG/DL (0.1-1.0)
[2020-09-01 15:30] LABS: CREATININE SERUM 2.27 MG/DL (0.60-1.30)
== END ==
LOC: CARD 11:50
PROVIDERS: ATTEND Internal Medicine Cardiovascular Disease
DX: I11.9 Hypertensive heart disease without heart failure (principal); I35.8 Other nonrheumatic aortic valve disorders; I25.10 Atherosclerotic heart disease of native coronary artery without angina pectoris; E78.2 Mixed hyperlipidemia
CPT/HCPCS: 36415; 80053; 80061; 93306

== ENCOUNTER → 2020-09-15 | Outpatient (CLI) | payer MEDICARE ==
[~2020-09-15] VITALS: Ht 161 cm; Wt 58.9 kg
[2020-09-15 10:30] VITALS: BP 140/88
== END ==
LOC: SDC 10:18
PROVIDERS: ATTEND Surgery
DX: Z45.2 Encounter for adjustment and management of vascular access device (principal)
CPT/HCPCS: 99211

== ENCOUNTER 2020-09-29 10:02 | Outpatient (CLI) | payer MEDICARE ==
[~2020-09-29] VITALS: Ht 157.5 cm; Wt 58.9 kg
[2020-09-29] MEDS ORDERED: NF-SODBICA PO (13:07)
== END 2020-09-29 15:11 | disposition home or self-care (01) ==
LOC: PREOP 10:02
PROVIDERS: ATTEND Surgery
DX: Z01.818 Encounter for other preprocedural examination (principal)

== ENCOUNTER 2020-10-05 13:54 | Day surgery (SDC) | payer MEDICARE ==
[~2020-10-05] VITALS: Ht 157 cm; Wt 58.0 kg
[~2020-10-05 13:54] MED LIST changes: +NF-SODBICA PO
[2020-10-05] MEDS ORDERED: FLEET ENEMA ADULT 1 EA BTL ONE (13:55)
[2020-10-05] MEDS ORDERED: LACTATED RINGERS 1,000 ML IV ONE (13:55)
[2020-10-05] MEDS ORDERED: LACTATED RINGERS 1,000 ML IV STA (13:56)
[2020-10-05 14:15] VITALS: BP 144/92
--- NOTE | 2020-10-05 14:29 | Progress Note-Pre Operative ---
Pre-Operative Progress Note H&P Reviewed The H&P was reviewed, patient examined and no changes noted. Time Seen by Provider: 14:26 Date H&P Reviewed: Oct 05, 2020 Time H&P Reviewed: 14:26 Pre-Operative Diagnosis: disuse of rectum, check regarding possible reanasto YADIRA Tay DO Oct 05, 2020 14:29
[2020-10-05] MEDS ORDERED: proPOfol 200 MG/20 ML (DIPRIVAN) VIAL IV ONE (14:50)
[2020-10-05] MEDS ORDERED: CARV12.53 PO (15:03)
[2020-10-05] MEDS ORDERED: TRAM50TA3 PO (15:03)
--- NOTE | 2020-10-05 15:14 | Progress Note-Post Operative ---
Post-Operative Progess Note Surgeon (s)/B2B Managed Service Sales Exec (s) Surgeon YADIRA LONDON DO B2B Managed Service Sales Exec: none Pre-Operative Diagnosis disuse of rectum, check regarding possible reanastomosis Post-Operative Diagnosis same colon looked ok Procedure & Operative Findings Date of Procedure 10/05/20 Procedure Performed/Findings After informed consent was obtained, the patient was brought to the endoscopy suite and placed in the bed in the left lateral decubitus position. She was administered IV sedation by the anesthesiologist, who then monitored her vitals the entire time, heart rate, blood pressure and pulse ox and the scope was inserted, started the flexible sigmoidoscopy. Pushed in to about 10-12 cm to get to the end of her colon; which was probably sigmoid/rectum, saw what looked mostly like normal colon, mildly friable because of disuse. I also noted some minimal internal hemorrhoids and took pictures of all of this. The patient tolerated the procedure and she recovered in the endoscopy suite. Anesthesia Type IV sedation by Anesthesia Estimated Blood Loss Estimated blood loss (mL): scant Specimens/Packing Specimens Removed none YADIRA LONDON DO Oct 05, 2020 15:14
--- NOTE | 2020-10-05 15:14 | Endoscopy Discharge Instruct ---
Endo Procedure/Findings Findings 1.: Normal 2.: Internal Hemorrhoids Discharge Instructions - Activity: You might feel a little sleepy until tomorrow. This is due to the medicine you received to relax you. Until tomorrow, you should: NOT drive a car, operate machinery or power tools. NOT drink any alcoholic beverages. NOT make any important decisions or sign importortant papers. Do not return to work until tomorrow, unless otherwise instructed. Resume previous activities tomorrow. Diet: Start by taking liquids. If you tolerate liquids, advance to solid food. 1.: Colonoscopy in 1 year Notify Physician - If you experience excessive bleeding, unusual abdominal pain, fever, or chest pain, contact your doctor immediately. YADIRA LONDON DO Oct 05, 2020 15:14
[2020-10-05 15:15] VITALS: BP 147/69
--- NOTE | 2020-10-05 15:16 | Anesthesia-General Post-Op ---
MAC Patient Condition Mental Status/LOC: Same as Preop Cardiovascular: Satisfactory Nausea/Vomiting: Absent Respiratory: Satisfactory Pain: Controlled Complications: Absent Post Op Complications Complications None Follow Up Care/Instructions Patient Instructions None needed. Anesthesiology Discharge Order Discharge Order Patient is doing well, no complaints, stable vital signs, no apparent adverse anesthesia problems. CLEO MABRY DO Oct 05, 2020 15:16
[2020-10-05 15:20] VITALS: BP 128/63
[2020-10-05 15:30] VITALS: BP 136/84
[2020-10-05 15:38] VITALS: BP 136/84
== END 2020-10-05 15:43 | disposition home or self-care (01) ==
LOC: ENDO 13:54
PROVIDERS: ATTEND Surgery
DX: K94.19 Other complications of enterostomy (principal); L02.211 Cutaneous abscess of abdominal wall; L58.9 Radiodermatitis, unspecified; N18.9 Chronic kidney disease, unspecified; I48.20 Chronic atrial fibrillation, unspecified; E11.9 Type 2 diabetes mellitus without complications; K21.9 Gastro-esophageal reflux disease without esophagitis; E03.9 Hypothyroidism, unspecified; Z98.0 Intestinal bypass and anastomosis status; Z79.82 Long term (current) use of aspirin; Z79.899 Other long term (current) drug therapy; Z79.890 Hormone replacement therapy; Z87.891 Personal history of nicotine dependence; Z90.710 Acquired absence of both cervix and uterus; Z90.49 Acquired absence of other specified parts of digestive tract; Z90.89 Acquired absence of other organs; Z79.84 Long term (current) use of oral hypoglycemic drugs

== ENCOUNTER 2020-11-18 06:02 | Outpatient (CLI) | payer MEDICARE ==
[~2020-11-18] VITALS: Ht 157.5 cm; Wt 56.3 kg
== END 2020-11-18 10:25 | disposition home or self-care (01) ==
LOC: PREOP 06:02
PROVIDERS: ATTEND Surgery
DX: Z01.818 Encounter for other preprocedural examination (principal)

== ENCOUNTER 2020-11-25 08:07 | Inpatient (IN) | payer MEDICARE ==
[~2020-11-25] VITALS: Ht 157.5 cm; Wt 56.3 kg
[2020-11-25] VITALS (10 sets, daily range): BP systolic 92–165; BP diastolic 43–77
[2020-11-25] MEDS ORDERED: metroNIDAZOLE 500MG/100ML IVPB 100 ML IV ONE (08:15)
[2020-11-25] MEDS ORDERED: ceFAZolin 2 GM IV Premixed 50 ML IV ONE (08:15)
--- NOTE | 2020-11-25 08:16 | Progress Note-Pre Operative ---
Pre-Operative Progress Note H&P Reviewed The H&P was reviewed, patient examined and no changes noted. Time Seen by Provider: 08:13 Date H&P Reviewed: Nov 25, 2020 Time H&P Reviewed: 08:13 Pre-Operative Diagnosis: Ileostomy Status, Abd abscess YADIRA LONDON DO Nov 25, 2020 08:16
[2020-11-25] MEDS ORDERED: LIDOCAINE/EPI 1%-1:100,000 (XYLOCAINE) 20ML ONE (08:47)
[2020-11-25] MEDS ORDERED: fentaNYL INJ 100 MCG/2 ML AMP ONE (08:51)
[2020-11-25] MEDS ORDERED: MIDAZOLAM 2 MG/2 ML (VERSED) VIAL ONE (08:52)
[2020-11-25] MEDS: LACTATED RINGERS 1,000 ML IV PRN ×2 (08:55→11:50)
[2020-11-25] MEDS ORDERED: metroNIDAZOLE 500MG/100ML IVPB 100 ML ONE (08:59)
[2020-11-25] MEDS ORDERED: ONDANSETRON 4 MG/2 ML (SDV) Z0FRAN ONE (09:27)
[2020-11-25] MEDS ORDERED: SEVOFLURANE (ULTANE) 15 ML INHAL SOLN ONE ×2 (09:27→13:04)
[2020-11-25] MEDS ORDERED: ROCURONIUM 10 MG/ML 5 ML SYRINGE IV ONE (09:27)
[2020-11-25] MEDS ORDERED: proPOfol 200 MG/20 ML (DIPRIVAN) VIAL IV ONE (09:27)
[2020-11-25] MEDS ORDERED: morphine INJ 10 MG/ML 1ML (SYR OR VIAL) ONE (12:30)
[2020-11-25] MEDS ORDERED: GLYCOPYRROLATE 0.2 MG/ML (ROBINUL) 2 ML VIAL ONE (13:04)
[2020-11-25] MEDS ORDERED: NEOSTIGMINE 3 MG/3 ML VIAL ONE (13:04)
[2020-11-25] MEDS ORDERED: morphine INJ 10 MG/ML 1ML (SYR OR VIAL) IVP STA (13:07)
--- NOTE | 2020-11-25 13:14 | Progress Note-Post Operative ---
Post-Operative Progess Note Surgeon (s)/Copper Flotation Operator (s) Surgeon YADIRA LONDON DO Copper Flotation Operator: Jordan Pre-Operative Diagnosis Ileostomy Status, Abd abscess Post-Operative Diagnosis same plus extensive adhesions Procedure & Operative Findings Date of Procedure 11/25/20 Procedure Performed/Findings 1) Ileostomy take down and reversal with ileal-rectal anastomosis 2) Extensive ARNAUD 3) Excision of fistula and fistula tract Anesthesia Type GET Estimated Blood Loss Estimated blood loss (mL): less than 50ml Specimens/Packing Specimens Removed portion of TI and portion of rectum fistula tract and cavity YADIRA LONDON DO Nov 25, 2020 13:14
[2020-11-25] MEDS ORDERED: metroNIDAZOLE 500MG/100ML IVPB 100 ML IV SCH (13:15)
[2020-11-25] MEDS ORDERED: ONDANSETRON 4 MG/2 ML (SDV) Z0FRAN IVP PRN ×2 (13:15→13:30)
[2020-11-25] MEDS ORDERED: HYDROmorphone 2 MG/ML VIAL (DILAUDID) IV ONE (13:30)
[2020-11-25] MEDS ORDERED: morphine INJ 10 MG/ML 1ML (SYR OR VIAL) IVP ONE (13:30)
[2020-11-25] MEDS ORDERED: morphine INJ 4 MG/ML 1 ML (VIAL/SYRINGE) IVP PRN (16:45)
[2020-11-25] MEDS: ACETAMINOPHEN 500 MG TAB (TYLENOL) PO SCH ×2 (16:46→21:51)
[2020-11-25] MEDS: LACTATED RINGERS 1,000 ML IV SCH (16:47)
[2020-11-25] MEDS: CLINDAMYCIN 600 MG/50 ML IVPB 50 ML IV SCH ×2 (16:47→21:51)
[2020-11-25] MEDS: KETOROLAC 15 MG/ML VIAL IV SCH (17:58)
[2020-11-25] MEDS: metroNIDAZOLE 500MG/100ML IVPB 100 ML IV SCH (17:59)
[2020-11-26] VITALS (7 sets, daily range): BP systolic 96–144; BP diastolic 54–84
[2020-11-26] MEDS: KETOROLAC 15 MG/ML VIAL IV SCH ×5 (00:19→23:35)
[2020-11-26] MEDS: LACTATED RINGERS 1,000 ML IV SCH ×4 (02:56→16:52)
[2020-11-26] MEDS: metroNIDAZOLE 500MG/100ML IVPB 100 ML IV SCH (02:57)
[2020-11-26] MEDS: ACETAMINOPHEN 500 MG TAB (TYLENOL) PO SCH ×3 (05:16→21:30)
[2020-11-26] MEDS: PANTOPRAZOLE 40 MG (PROTONIX) VIAL IVP SCH (08:12)
--- NOTE | 2020-11-26 10:38 | Progress Note - Surgery ---
Subjective Time Seen by a Provider: 10:24 Subjective/Events-last exam Pt seen and examined, states pain is better today and rating it a 3. Pt had a BM yesterday and one this morning. She ate about 50% of her food yesterday. Review of Systems General: No Chills, No Night Sweats Pulmonary: No Dyspnea, No Cough Cardiovascular: No: Chest Pain, Palpitations Gastrointestinal: Abdominal Pain; No: Nausea, Vomiting Objective Exam Vital Signs Date Time Temp Pulse Resp B/P (MAP) Pulse Ox O2 Delivery O2 Flow Rate FiO2 11/26/20 09:00 Room Air 11/26/20 08:12 35.9 77 20 96/59 (71) 98 Room Air 11/26/20 04:55 36.8 70 18 109/54 (72) 97 Room Air 11/26/20 00:55 37.4 78 18 126/56 (79) 98 Room Air 11/25/20 20:03 Room Air 11/25/20 19:15 36.6 77 20 165/74 (104) 99 Room Air 11/25/20 15:28 35.7 64 16 154/68 (96) 98 Room Air 11/25/20 14:16 58 16 139/60 (86) Room Air 11/25/20 14:15 96 Room Air 11/25/20 14:00 36.2 16 123/50 (74) 96 Room Air 11/25/20 13:59 Room Air 11/25/20 13:50 14 109/56 (73) 100 OxyMask 1 11/25/20 13:50 OxyMask 1 11/25/20 13:40 OxyMask 2 11/25/20 13:40 16 110/53 (72) 100 OxyMask 2 11/25/20 13:30 14 114/53 (73) 100 OxyMask 2 11/25/20 13:25 OxyMask 5 11/25/20 13:20 12 100/47 (64) 100 OxyMask 3 11/25/20 13:10 36.3 21 92/43 (59) 99 10 11/25/20 13:10 OxyMask 10 I & O 11/26/20 06:59 Intake Total 1575 ml Output Total 845 ml Balance 730 ml Capillary Refill : Less Than 3 Seconds General Appearance: No Apparent Distress, WD/WN Respiratory: Lungs Clear, Normal Breath Sounds, No Accessory Muscle Use, No Respiratory Distress Cardiovascular: Regular Rate, Rhythm, No Murmur Gastrointestinal: soft, tenderness (mild at incisions), other (incisions c/d/i) Results Lab Laboratory Tests 11/25/20 17:00: Creatinine 1.92H Assessment/Plan Assessment/Plan Assessment/Plan S/P Ileostomy reversal Pt encouraged to ambulate, increase PO intake and use IS. Will increase to a soft diet. YADIRA LONDON DO Nov 26, 2020 10:38
--- NOTE | 2020-11-26 11:04 | Anesthesia-General Post-Op ---
General Patient Condition Mental Status/LOC: Same as Preop Cardiovascular: Satisfactory Nausea/Vomiting: Absent Respiratory: Satisfactory Pain: Controlled Complications: Absent Post Op Complications Complications None Follow Up Care/Instructions Patient Instructions None needed. Anesthesia/Patient Condition Patient Condition Patient is doing well, no complaints, stable vital signs, no apparent adverse anesthesia problems. No complications reported per nursing. SHANKAR NOEL CRNA Nov 26, 2020 11:03
[2020-11-26] MEDS: ENOXAPARIN 30 MG/0.3 ML (LOVENOX) SYR SC SCH (12:17)
--- NOTE | 2020-11-26 20:08 | OPERATIVE REPORT ---
DATE OF SERVICE: 11/25/2020 PREOPERATIVE DIAGNOSIS: Ileostomy status, abdominal abscess. POSTOPERATIVE DIAGNOSES: Ileostomy status, abdominal abscess plus extensive adhesions. PROCEDURES PERFORMED: 1. Ileostomy takedown and reversal with ileorectal anastomosis. 2. Extensive lysis of adhesions. 3. Excision of fistula and fistula tract. SURGEON: Chris Nieves DO. SECURITY ATTENDANT: Sarath Ortega DO. ANESTHESIA: General endotracheal tube. SPECIMEN: 1. Portion of terminal ileum and portion of rectum. 2. Fistula tract and cavity. BLOOD LOSS: Less than 50 mL. FLUIDS: Per anesthesia. POSTOPERATIVE CONDITION: Stable. INDICATION FOR PROCEDURE: The patient is a 75-year-old female, who has an ileostomy. She has been having multiple problems with it. Pt was very malnourished. It took a while, we were able to finally get her to gain some weight, then she developed a fistula. This fistula has been draining off and on (in midline); however, during the four days prior to this surgery she states the fistula had not drained. It was right in the midline. We were thinking about attempting a laparoscopic takedown. FINDINGS: The patient had extensive adhesions. The fistula tract did not go into the belly. It just looked like it was a fistula abscess around a suture. This was removed and ileorectal anastomosis was performed to reverse her ileostomy. PROCEDURE NOTE: After informed consent was obtained, the patient was brought to the operating room and placed on the table in a lithotomy position. She was sterilely prepped and draped in a normal fashion. I started with an incision in the left upper quadrant, infiltrated the skin with local, made an incision with 11 blade, carried down through the skin into the subcutaneous tissue, deepened down to subcutaneous tissue with Bovie electrocautery down to fascia. Fascia was incised with Bovie electrocautery, bluntly spread the muscle apart, went through the posterior fascia and into the abdomen, placed 12mm trocar port and then attempted to create pneumoperitoneum. I got in and there were multiple adhesions, but it was hard to tell where I was. It felt like we were in the abdominal cavity, but again could not see, tried bluntly with the scope to create an opening, actually got up into the left upper quadrant, could see a good space, but in the abdomen could not. At this point, I then elected to go through the midline and do the procedure open, made an incision, carried down through the skin and subcutaneous tissue with #10 blade, deepened down to subcutaneous tissue with Bovie electrocautery down to fascia. Fascia was carefully incised, started superiorly, able to get in and then gently pushing some of the intestine away with the blunt dissection, started increasing this incision down the midline through the fascia with a Bovie electrocautery as well as with some sharp dissection with Metzenbaum scissors, careful because there were adhesions all over the abdomen. There were so many adhesions, it took over an hour just to get the adhesions down, so we could free everything up in the abdomen and find everything. We were able to free up the midline using Metzenbaum scissors, gently pushed the intestine away, freed up the right upper quadrant and the left upper quadrant, then down the left side, then down around the ileostomy and then down into the pelvis. When we were performing the opening of the midline, we encountered the fistula tract and necrotic tissue. We encircled this with a circular incision and took this all the way down right on to the fascia and found a Ti-Cron suture, looked like this was a suture abscess, was able to take this off, did take a small portion of the fascia with this fistula tract and cavity to remove all of this. We then started running the small intestine using the Metzenbaum scissors to take down the adhesions as well as some blunt dissection, carefully delivering all the small intestine into the midline and up out of the pelvis and then running this from the ileostomy all the way to ligament of Treitz, freeing all of the intestine out. Once this was done, I packed this superiorly and then able to start dissecting out the rectal stump, felt like there was a rectal stump with a little bit of a sigmoid. Once this was freed up, then elected to do a [id number]-[id number] anastomosis. Again, this took about an hour and 15 minutes or more to getting freed up, so we could finally see where we are going, at this point, then we made an elliptical incision, the ileostomy had been sewn shut prior to the case, made an elliptical incision around this through the skin down into the subcutaneous tissue, then deepened down to subcutaneous tissue with Bovie electrocautery down to the opening and then pushed the terminal ileum back through into the abdomen, then brought this terminal ileum side by side next to the rectosigmoid area. I made a defect in the antimesenteric border of the terminal ileum and then defect in the tinea of the distal rectum or sigmoid colon and used a JIE-75 clamped push pull through the side, so there was a apkq-ua-kuer functional end-to-end anastomosis, clamped and fired, thereby transecting and creating opening and then used a TA 60 to come across the portion of terminal ileum and the distal rectal or sigmoid stump, held for 30 seconds, fired and then cut this distal portion off with a sharp curved Mayos. This specimen was then passed off the table. This laid in nicely. We copiously irrigated with normal saline. After we made sure the anastomosis looked good, we could feel good opening between the terminal ileum and the rectum and then we copiously irrigated. We suctioned all this ran the bowel again, it looked good. It was not twisted and at this point, I then elected to close the midline incision. First, we closed the ileostomy incision, closed with 0 Vicryl, two jxklap-ot-nasyo sutures were used to close this, then we closed the midline incision with a #1 double stranded PDS suture running from the inferior portion to the superior portion tying to itself and then closed the left upper quadrant incision, closing the fascia with 0 Vicryl xjlunl-vl-dbnxl suture and then closed all incisions on the skin with kavya. Area was cleaned and dried, dressings placed. The patient tolerated this procedure. Sponge and needle counts were correct at the end of the case and she was transferred to recovery room in a stable condition. Dr. Ortega assisted in this case helping to make incisions, close incisions, identify the anatomy and hold anatomy out of the way as well as to help perform the anastomosis. Job ID: [id number] DocumentID: [id number] Dictated Date: 11/26/2020 17:35:56 Fermentation Operator Date: 11/26/2020 20:07:43 Dictated By: DO LOY MCKEON
[2020-11-27 04:21] VITALS: BP 128/76
[2020-11-27] MEDS: KETOROLAC 15 MG/ML VIAL IV SCH ×2 (06:09→13:09)
[2020-11-27] MEDS: ACETAMINOPHEN 500 MG TAB (TYLENOL) PO SCH ×2 (06:09→13:10)
[2020-11-27 08:06] VITALS: BP 162/70
[2020-11-27] MEDS: PANTOPRAZOLE 40 MG (PROTONIX) VIAL IVP SCH (08:57)
[2020-11-27 11:52] VITALS: BP 114/73
[2020-11-27] MEDS: ENOXAPARIN 30 MG/0.3 ML (LOVENOX) SYR SC SCH (13:10)
[2020-11-27] MEDS ORDERED: TRAM50TA3 PO (15:09)
--- NOTE | 2020-11-27 15:13 | Discharge Inst-Surgical ---
Discharge Inst-Surgical Depart Medication/Instructions New, Converted or Re-Newed RX: Transmitted to Pharmacy Patient Instructions Follow up Appt: Make appointment for 1 week. [phone] Instructions: No lifting greater than 20 pounds. No strenuous activity. May shower in 24 hours, no tub bath or soaking. Use incentive spirometer at home as directed. No Smoking Skin/Wound Care: May remove bandages in am. You need to leave the kavya in place and come in to office to have them removed. Symptoms to Report: Appetite Changes, Extremity Discoloration, Numbness/Tingling, Swelling Increased, Bleeding Excessive, Eyesight Changes, Pain Increased, Urine Color Change, Constipation(Persistent), Fever over 101 degree F, Pain/Pressure in chest, Urinating Difficulty, Cough Up/Vomit Blood, Heart Beat Irreg/Pounding, Pain/Pressure in jaw, Cramps in feet or legs, Lightheadedness, Pain/Pressure in shoulder, Diarrhea(Persistent), Memory Changes Suddenly, Questions/Concerns, Weight gain consecutive days, Dizziness/Fainting, Nausea/Vomiting, Shortness of Breath, Weight gain over 2 pounds If questions or concerns contact your physician Or seek help at emergency department. Activity Activity as Tolerated: Yes Activity Instructions: Avoid Stress to Incision Driving Instructions: No Driving/Refer to Dr. Lawrence Discharge Diet: No Restrictions Diet After 24 Hours: Clear Liquid if Nauseous If Any Problems/Questions/Issu: Contact Your Physician, Go to Emergency Room Skin/Wound Care Infection Signs and Symptoms: Increased Redness, Foul Odor of Wound, Increased Drainage, Skin Itchy or Has a Rash, Increased Swelling, Temperature Above 101 F Bathing Instructions: Shower Stitches/[place]/Dermabond Dis: Care of YADIRA Bravo DO Nov 27, 2020 15:12
[2020-11-27 15:21] VITALS: BP 138/78
[2020-11-27 16:23] VITALS: BP 138/78
== END 2020-11-27 16:23 | disposition home or self-care (01) | DRG 330 ==
LOC: 4TH 08:07 → SURG 08:08 → 4TH 14:12
PROVIDERS: ADMIT Surgery; ATTEND Surgery
PROC: 0DBB0ZZ Excision of Ileum, Open Approach (ICD-10-PCS; principal; 2020-11-26)
PROC: 0DNW0ZZ Release Peritoneum, Open Approach (ICD-10-PCS; 2020-11-26)
PROC: 0DBP0ZZ Excision of Rectum, Open Approach (ICD-10-PCS; 2020-11-26)
DX: Z43.2 Encounter for attention to ileostomy (principal); L02.211 Cutaneous abscess of abdominal wall; I48.20 Chronic atrial fibrillation, unspecified; K66.0 Peritoneal adhesions (postprocedural) (postinfection); K21.9 Gastro-esophageal reflux disease without esophagitis; E03.9 Hypothyroidism, unspecified; E11.22 Type 2 diabetes mellitus with diabetic chronic kidney disease; N18.9 Chronic kidney disease, unspecified; I12.9 Hypertensive chronic kidney disease with stage 1 through stage 4 chronic kidney disease, or unspecified chronic kidney disease; Z90.5 Acquired absence of kidney
CPT/HCPCS: 36415; 82565; 87081; 88304; 88307

== ENCOUNTER 2020-11-30 16:23 | Emergency (ER) | payer MEDICARE ==
[~2020-11-30] VITALS: Ht 157.4 cm; Wt 56.3 kg
[2020-11-30] MEDS ORDERED: fentaNYL INJ 100 MCG/2 ML AMP IVP ONE ×2 (16:45→18:15)
[2020-11-30 16:46] LABS: BASOPHILS % (AUTO) 0 % (0-10); EOSINOPHILS # (AUTO) 0.1 10^3/uL (0.0-0.3); EOSINOPHILS % (AUTO) 1 % (0-10); HEMATOCRIT 30 % (35-52); HEMOGLOBIN 9.5 g/dL (11.5-16.0); LYMPHOCYTES # (AUTO) 0.7 10^3/uL (1.0-4.0); LYMPHOCYTES % (AUTO) 8 % (12-44); MEAN CORPUSCULAR HEMOGLOBIN 28 pg (25-34); MEAN CORPUSCULAR HGB CONC 32 g/dL (32-36); MEAN CORPUSCULAR VOLUME 88 fL (80-99); MEAN PLATELET VOLUME 9.9 fL (9.0-12.2); MONOCYTES # (AUTO) 0.5 10^3/uL (0.0-1.0); MONOCYTES % (AUTO) 5 % (0-12); NEUTROPHILS # (AUTO) 8.1 10^3/uL (1.8-7.8); NEUTROPHILS % (AUTO) 86 % (42-75); PLATELET COUNT 234 10^3/uL (130-400); WHITE BLOOD COUNT 9.5 10^3/uL (4.3-11.0)
--- NOTE | 2020-11-30 16:57 | ED General ---
General Chief Complaint: Post OP Complications/Pain Stated Complaint: ABD PAIN Source of Information: Patient Exam Limitations: No Limitations (JESS FISHER APRN) History of Present Illness Date Seen by Provider: Nov 30, 2020 Time Seen by Provider: 16:56 Initial Comments ER with reports of abdominal pain that is lower abdomen. On 11/26 she had ileostomy takedown with reversal of the ileorectal anastomosis. History of C. difficile and chronic atrial fibrillation. She also only has 1 kidney she states. She denies nausea or vomiting. She denies fevers or chills. Timing/Duration: 1-2 Days Severity: Moderate (JESS FISHER APRN) Allergies and Home Medications Allergies Coded Allergies: Penicillins (Verified Allergy, Unknown, 08/20/20) raspberry (Verified Allergy, Unknown, 08/20/20) Home Medications Amitriptyline HCl 100 Mg Tablet, 100 MG PO HS, (Reported) Amlodipine Besylate 10 Mg Tablet, 10 MG PO DAILY, (Reported) Aspirin 81 Mg Tab.chew, 81 MG PO DAILY, (Reported) Atorvastatin Calcium 20 Mg Tablet, 20 MG PO DAILY, (Reported) Carvedilol 12.5 Mg Tablet, 12.5 MG PO BID, (Reported) Cetirizine HCl 10 Mg Tablet, 10 MG PO BID, (Reported) Fenofibrate 160 Mg Tablet, 160 MG PO DAILY, (Reported) Ferrous Sulfate 325 Mg Tablet, 325 MG PO BID, (Reported) Fish Oil/Dha/Epa 1 Each Capsule, 2 EACH PO BID, (Reported) Hydrocodone/Acetaminophen 1 Each Tablet, 1 TAB PO Q4H PRN for PAIN-MODERATE (5- 7) Prescribed by: JESS FISHER on 11/30/201914 Leflunomide 20 Mg Tablet, 20 MG PO Q48H, (Reported) Levothyroxine Sodium 112 Mcg Tablet, 112 MCG PO GUILLORY,TU,WE,REFUGIO,FR,SA, (Reported) TAKES 1 TAB EVERYDAY EXPECT MONDAYS Pantoprazole Sodium 40 Mg Tablet.dr, 40 MG PO DAILY, (Reported) Pilocarpine 5 Mg Tab, 10 MG PO BID, (Reported) TAKES 2 (5MG) TABS Pioglitazone HCl 30 Mg Tablet, 30 MG PO DAILY, (Reported) Simethicone 80 Mg Tab.chew, 80 MG PO UD PRN for GAS, (Reported) Sodium Bicarbonate 650 Mg Tablet, 650 MG PO BID, (Reported) Tramadol HCl 50 Mg Tablet, 50 MG PO QID Prescribed by: YADIRA LONDON on 11/27/20 8593 Patient Home Medication List Home Medication List Reviewed: Yes (JESS FISHER APRN) Review of Systems Review of Systems Constitutional: see HPI EENTM: see HPI Respiratory: no symptoms reported Cardiovascular: no symptoms reported Gastrointestinal: abdominal pain Genitourinary: no symptoms reported Musculoskeletal: no symptoms reported Skin: no symptoms reported Psychiatric/Neurological: No Symptoms Reported Hematologic/Lymphatic: No Symptoms Reported Immunological/Allergic: no symptoms reported (JESS FISHER APRN) Past Wybvify-Juzufg-Vbavdi Hx Seasonal Allergies Seasonal Allergies: No (JESS FISHER APRN) Past Medical History Surgeries: Yes Abdominal, Bowel Surgery, Cardiac, Gallbladder, Hysterectomy, Nephrectomy, Oophorectomy, Tonsillectomy Respiratory: No Currently Using CPAP: No Cardiac: Yes (AFIB/[facility]/CARDIOVERSION 12/2019; ) Atrial Fibrillation, High Cholesterol, Hypertension Neurological: No Reproductive Disorders: Yes (OVARIAN CANCER) FAMILY INDEPENDENCE CASE MANAGER History: Hysterectomy, Menopausal Sexually Transmitted Disease: No HIV/AIDS: No Genitourinary: Yes (HAS ONLY 1 KIDNEY (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 HAD REMOVED CAUSE BLOOD VESSELS WRAPPED ) Bladder Infection Gastrointestinal: Yes (PERMANENT ILEOSTOMY/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/2019;[facility]) Colitis, Gastroesophageal Reflux, Liver Disease/Jaundice, C-Diff, Gall Bladder Disease Musculoskeletal: Yes (RA/OSTEOARTHRITIS) Arthritis, Rheumatoid Arthritis Endocrine: Yes Hypothyroidsim, Diabetes, Non-Insulin dep HEENT: No Cancer: Yes Ovarian Did You Recieve Any Treatments: Yes What Type of Treatment Did You: Surgical Intervention Psychosocial: No Integumentary: Yes (DELAYED HEALING OF SURGICAL WOUND; PERISTOMAL SKIN BREAKDOWN) Blood Disorders: No Adverse Reaction/Blood Tranf: No (JESS FISHER APRN) Family Medical History Arthritis 19 MOTHER Cardiovascular disease 19 MOTHER Diabetes mellitus 19 FATHER 19 MOTHER PAST MEDICAL /SURGICAL HISTORY: -12/2019--HAD SEVERE C. DIFFICILE COLITIS--ADMITTED TO [facility] 01/21/20. PT HAD SYNCOPAL EPISODE WITH LOSS OF PULSE AND CPR/RESUSCITATION FOR APPROXIMATELY 2 MINUTES WITH [facility]. DURING THAT STAY SHE HAD ATRIAL FIBRILLATION WITH [facility] THAT REQUIRED CARDIOVERSION PT UNDERWENT SUBTOTAL COLECTOMY WITH PERMANENT ILEOSTOMY. PT REPORTS THAT SHE WAS ON VENTILATOR FOR 10 DAYS PT WAS TRANSFERRED FROM [facility] TO [facility], AND WAS THERE FROM 02/08/20-02/28/20, THEN TRANSFERRED HERE FOR REHAB FROM 02/28/20-03/10/20. SEEING WOUND CARE FOR DELAYED HEALING OF MIDLINE SURGICAL WOUND AND SKIN BREAKDOWN AROUND STOMA. 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 JOE -SEBACEOUS CYST OF ABDOMINAL WALL REMOVED 05/[address] JOE -SUBTOTAL COLECTOMY WITH PERMANENT ILEOSTOMY 12/2019 [address] [facility] [address] BRYANT (JESS FISHER APRN) Physical Exam Vital Signs Vital Signs - First Documented 11/30/20 11/30/20 16:28 19:50 Temp 37.3 Pulse 89 Resp 20 B/P (MAP) 125/79 (94) Pulse Ox 100 O2 Delivery Room Air (TRINY ARDON MD) Vital Signs Capillary Refill : (JESS FISHER APRN) Height, Weight, BMI Height: '" Weight: lbs. oz. kg; 22.69 BMI Method:Stated General Appearance: No Apparent Distress, WD/WN Eyes: Bilateral Eye Normal Inspection, Bilateral Eye PERRL Neck: Full Range of Motion, Normal Inspection Respiratory: No Accessory Muscle Use, No Respiratory Distress Gastrointestinal: Soft, Other (Abdomen is flat and soft, tender to palpation. Incisions are intact. There is no surrounding erythema. There is some seropurulent drainage from the inferior aspect of the midline abdominal incision.) Extremity: Normal Capillary Refill, Normal Inspection Neurologic/Psychiatric: Alert, Oriented x3 Skin: Normal Color, Warm/Dry (JESS FISHER APRN) Progress/Results/Core Measures Suspected Sepsis SIRS Temperature: Pulse: Respiratory Rate: Laboratory Tests 11/30/20 16:36: White Blood Count 9.5 Blood Pressure / Mean: Laboratory Tests 11/30/20 16:36: Creatinine 2.13H, Platelet Count 234, Total Bilirubin 0.8 (JESS FISHER APRN) Results/Orders Lab Results Laboratory Tests Test 11/30/20 16:36 11/30/20 19:05 Range/Units White Blood Count 9.5 4.3-11.0 10^3/uL Red Blood Count 3.40 L 3.80-5.11 10^6/uL Hemoglobin 9.5 L 11.5-16.0 g/dL Hematocrit 30 L 35-52 % Mean Corpuscular Volume 88 80-99 fL Mean Corpuscular Hemoglobin 28 25-34 pg Mean Corpuscular Hemoglobin Concent 32 32-36 g/dL Red Cell Distribution Width 14.6 H 10.0-14.5 % Platelet Count 234 130-400 10^3/uL Mean Platelet Volume 9.9 9.0-12.2 fL Immature Granulocyte % (Auto) 0 % Neutrophils (%) (Auto) 86 H 42-75 % Lymphocytes (%) (Auto) 8 L 12-44 % Monocytes (%) (Auto) 5 0-12 % Eosinophils (%) (Auto) 1 0-10 % Basophils (%) (Auto) 0 0-10 % Neutrophils # (Auto) 8.1 H 1.8-7.8 10^3/uL Lymphocytes # (Auto) 0.7 L 1.0-4.0 10^3/uL Monocytes # (Auto) 0.5 0.0-1.0 10^3/uL Eosinophils # (Auto) 0.1 0.0-0.3 10^3/uL Basophils # (Auto) 0.0 0.0-0.1 10^3/uL Immature Granulocyte # (Auto) 0.0 0.0-0.1 10^3/uL Neutrophils % (Manual) 79 % Lymphocytes % (Manual) 7 % Monocytes % (Manual) 7 % Band Neutrophils 7 % Blood Morphology Comment NORMAL Sodium Level 139 135-145 MMOL/L Potassium Level 5.0 3.6-5.0 MMOL/L Chloride Level 104 98-107 MMOL/L Carbon Dioxide Level 20 L 21-32 MMOL/L Anion Gap 15 H 5-14 MMOL/L Blood Urea Nitrogen 37 H 7-18 MG/DL Creatinine 2.13 H 0.60-1.30 MG/DL Estimat Glomerular Filtration Rate 23 BUN/Creatinine Ratio 17 Glucose Level 128 H 70-105 MG/DL Calcium Level 9.8 8.5-10.1 MG/DL Corrected Calcium 10.0 8.5-10.1 MG/DL Total Bilirubin 0.8 0.1-1.0 MG/DL Aspartate Amino Transf (AST/SGOT) 16 5-34 U/L Alanine Aminotransferase (ALT/SGPT) 26 0-55 U/L Alkaline Phosphatase 78 40-136 U/L Total Protein 7.0 6.4-8.2 GM/DL Albumin 3.7 3.2-4.5 GM/DL Lipase 10 8-78 U/L Urine Color YELLOW Urine Clarity SL CLOUDY Urine pH 5.5 5-9 Urine Specific [place] 1.020 1.016-1.022 Urine Protein NEGATIVE NEGATIVE Urine Glucose (UA) NEGATIVE NEGATIVE Urine Ketones NEGATIVE NEGATIVE Urine Nitrite NEGATIVE NEGATIVE Urine Bilirubin NEGATIVE NEGATIVE Urine Urobilinogen 0.2 < = 1.0 MG/DL Urine Leukocyte Esterase NEGATIVE NEGATIVE Urine RBC (Auto) NEGATIVE NEGATIVE Urine RBC 0-2 /HPF Urine WBC 0-2 /HPF Urine Squamous Epithelial Cells NONE /HPF Urine Renal Epithelial Cells NONE /HPF Urine Crystals NONE /LPF Urine Bacteria NEGATIVE /HPF Urine Casts NONE /LPF Urine Mucus NEGATIVE /LPF Urine Culture Indicated NO (TRINY ARDON MD) Medications Given in ED Current Medications Medications Dose Ordered Sig/Kay Route Start Time Stop Time Status Last Admin Dose Admin Acetaminophen/ Hydrocodone Bitart 1 ea Q4H PRN PO 11/30/20 19:15 12/01/20 03:14 DC 11/30/20 19:48 1 EA (TRINY ARDON MD) Vital Signs/I&O 11/30/20 11/30/20 16:28 19:50 Temp 37.3 Pulse 89 76 Resp 20 20 B/P (MAP) 125/79 (94) 112/56 Pulse Ox 100 97 O2 Delivery Room Air (TRINY ARDON MD) Vital Signs/I&O Capillary Refill : (JESS FISHER APRN) Diagnostic Imaging Diagonstic Imaging: CT Comments NAME: RABIANATHANIEL E [facility] REC#: [id number] PT STATUS: REG ER : 1945 PHYSICIAN: JESS FISHER APRN ADMIT DATE: 11/30/20/ER Draft Date of Exam:08/02/21 CT ABDOMEN/PELVIS WO CT ABDOMEN/PELVIS WO TECHNIQUE: Unenhanced CT imaging of the abdomen and pelvis was performed. 2-D reformats are created and submitted for interpretation. Automatic exposure controls were utilized to optimize patient dose. INDICATION: Abdominal pain. Ileostomy reversal five days ago. COMPARISON: 08/06/2020. FINDINGS: Evaluation of the abdominal viscera is mildly limited without contrast. Lower chest: Subpleural groundglass opacities are partially imaged in the left lower lobe and are age-indeterminate. Peritoneum: There is a small amount of free intraperitoneal air which would be within expected limits for recent laparotomy. Trace free fluid. Liver and biliary system: Unenhanced liver is normal. Cholecystectomy. No biliary duct dilatation. Spleen and Pancreas: Spleen is normal. Unenhanced pancreas is grossly normal. Adrenals: Normal. tract: Right nephrectomy. No left renal or ureteral stones. No obstructive uropathy on the left. Urinary bladder is partially filled without wall thickening. Hysterectomy. GI tract: Stomach is decompressed. No dilated loops of bowel are present. Lack of IV contrast limits assessment for bowel wall enhancement. In the left lower quadrant, there are fluid and air-filled loops of bowel. It is difficult to ascertain if there is possible fluid collection between the bowel loops in the left lower quadrant. Vasculature and Lymph nodes: Normal caliber aorta with moderate atherosclerotic plaquing. No abdominal or pelvic lymphadenopathy. Musculoskeletal: No concerning osseous lesion. IMPRESSION: 1. Recent surgical changes from ileostomy reversal and laparotomy. There is a small amount of free intraperitoneal air which is within expected limits for recent laparotomy. 2. Due to the lack of contrast, it was difficult to ascertain if there is a fluid collection in the left lower quadrant associated with the fluid and air-filled bowel loops. If patient has clinical symptoms of possible infection, then follow-up CT with IV contrast and water-soluble oral contrast is suggested to better evaluate for potential fluid collection/abscess in the left lower quadrant. Dictated on workstation # [id number] Dict: 11/30/20 1744 Trans: 11/30/20 1756 [id number] [id number] Interpreted by: ZAY VERDE MD Electronically signed by: (JESS FISHER APRN) Departure Communication (Admissions) Family Conversation I spoke with Dr. Ortega and then Dr. London. He agrees to follow-up with her in the clinic this week. She has an appointment on . I will switch her pain medication from tramadol/Tylenol to hydrocodone. NAME: NATHANIEL CAMARILLO [facility] REC#: [id number] PT STATUS: REG ER : 1945 PHYSICIAN: JESS FISHER APRN ADMIT DATE: 11/30/20/ER Draft Date of Exam:11/30/20 CT ABDOMEN/PELVIS WO CT ABDOMEN/PELVIS WO TECHNIQUE: Unenhanced CT imaging of the abdomen and pelvis was performed. 2-D reformats are created and submitted for interpretation. Automatic exposure controls were utilized to optimize patient dose. INDICATION: Abdominal pain. Ileostomy reversal five days ago. COMPARISON: 08/06/2020. FINDINGS: Evaluation of the abdominal viscera is mildly limited without contrast. Lower chest: Subpleural groundglass opacities are partially imaged in the left lower lobe and are age-indeterminate. Peritoneum: There is a small amount of free intraperitoneal air which would be within expected limits for recent laparotomy. Trace free fluid. Liver and biliary system: Unenhanced liver is normal. Cholecystectomy. No biliary duct dilatation. Spleen and Pancreas: Spleen is normal. Unenhanced pancreas is grossly normal. Adrenals: Normal. tract: Right nephrectomy. No left renal or ureteral stones. No obstructive uropathy on the left. Urinary bladder is partially filled without wall thickening. Hysterectomy. GI tract: Stomach is decompressed. No dilated loops of bowel are present. Lack of IV contrast limits assessment for bowel wall enhancement. In the left lower quadrant, there are fluid and air-filled loops of bowel. It is difficult to ascertain if there is possible fluid collection between the bowel loops in the left lower quadrant. Vasculature and Lymph nodes: Normal caliber aorta with moderate atherosclerotic plaquing. No abdominal or pelvic lymphadenopathy. Musculoskeletal: No concerning osseous lesion. IMPRESSION: 1. Recent surgical changes from ileostomy reversal and laparotomy. There is a small amount of free intraperitoneal air which is within expected limits for recent laparotomy. 2. Due to the lack of contrast, it was difficult to ascertain if there is a fluid collection in the left lower quadrant associated with the fluid and air-filled bowel loops. If patient has clinical symptoms of possible infection, then follow-up CT with IV contrast and water-soluble oral contrast is suggested to better evaluate for potential fluid collection/abscess in the left lower quadrant. Dictated on workstation # [id number] Dict: 11/30/20 1744 Trans: 11/30/20 1756 [facility] [id number] Interpreted by: ZAY VERDE MD Electronically signed by: (JESS FISHER APRN) Impression Primary Impression: Postoperative pain Disposition: 01 HOME, SELF-CARE Condition: Stable Departure-Patient Inst. Decision time for Depature: 19:14 (JESS FISHER APRN) Referrals: KIMBERLY HANNON (PCP/Family) Primary Care Physician Patient Instructions: Acute Pain, Adult Scripts Hydrocodone/Acetaminophen (Hydrocodone-Acetamin 5-325 mg) 1 Each Tablet 1 TAB PO Q4H PRN for PAIN-MODERATE (5-7), #14 TAB Prov: JESS FISHER APRN 11/30/20 ATTENDING PHYSICIAN NOTE: I was physically present as attending physician in the emergency department during the care of this patient, but I was not directly involved in the decision making or delivery of care for this patient. (TRINY ARDON MD) JESS FISHER APRN Nov 30, 2020 16:57 TRINY ARDON MD Dec 01, 2020 06:38
[2020-11-30 17:00] LABS: ALBUMIN 3.7 GM/DL (3.2-4.5)
[2020-11-30 17:01] LABS: CALCIUM 9.8 MG/DL (8.5-10.1)
[2020-11-30 17:04] LABS: BILIRUBIN,TOTAL 0.8 MG/DL (0.1-1.0)
[2020-11-30 17:06] LABS: CREATININE SERUM 2.13 MG/DL (0.60-1.30)
[2020-11-30 17:09] LABS: BAND NEUTROPHILS 7 %; LYMPHOCYTES % (MANUAL) 7 %; MONOCYTES % (MANUAL) 7 %; NEUTROPHILS % (MANUAL) 79 %; RBC MORPH NORMAL
--- NOTE | 2020-11-30 17:57 | Diagnostic Imaging Report ---
CT ABDOMEN/PELVIS WO TECHNIQUE: Unenhanced CT imaging of the abdomen and pelvis was performed. 2-D reformats are created and submitted for interpretation. Automatic exposure controls were utilized to optimize patient dose. INDICATION: Abdominal pain. Ileostomy reversal five days ago. COMPARISON: 08/06/2020. FINDINGS: Evaluation of the abdominal viscera is mildly limited without contrast. Lower chest: Subpleural groundglass opacities are partially imaged in the left lower lobe and are age-indeterminate. Peritoneum: There is a small amount of free intraperitoneal air which would be within expected limits for recent laparotomy. Trace free fluid. Liver and biliary system: Unenhanced liver is normal. Cholecystectomy. No biliary duct dilatation. Spleen and Pancreas: Spleen is normal. Unenhanced pancreas is grossly normal. Adrenals: Normal. tract: Right nephrectomy. No left renal or ureteral stones. No obstructive uropathy on the left. Urinary bladder is partially filled without wall thickening. Hysterectomy. GI tract: Stomach is decompressed. No dilated loops of bowel are present. Lack of IV contrast limits assessment for bowel wall enhancement. In the left lower quadrant, there are fluid and air-filled loops of bowel. It is difficult to ascertain if there is possible fluid collection between the bowel loops in the left lower quadrant. Vasculature and Lymph nodes: Normal caliber aorta with moderate atherosclerotic plaquing. No abdominal or pelvic lymphadenopathy. Musculoskeletal: No concerning osseous lesion. IMPRESSION: 1. Recent surgical changes from ileostomy reversal and laparotomy. There is a small amount of free intraperitoneal air which is within expected limits for recent laparotomy. 2. Due to the lack of contrast, it was difficult to ascertain if there is a fluid collection in the left lower quadrant associated with the fluid and air-filled bowel loops. If patient has clinical symptoms of possible infection, then follow-up CT with IV contrast and water-soluble oral contrast is suggested to better evaluate for potential fluid collection/abscess in the left lower quadrant. Dictated by: Dictated on workstation # [id number]
[2020-11-30] MEDS ORDERED: HYDROcodone/APAP 5 MG/325 MG (LORTAB) TAB PO ONE (18:15)
[2020-11-30 19:09] LABS: BILIRUBIN,URINE NEGATIVE (NEGATIVE); CLARITY,URINE SL CLOUDY; COLOR,URINE YELLOW; GLUCOSE, URINE (UA) NEGATIVE (NEGATIVE); KETONES,URINE NEGATIVE (NEGATIVE); LEUKOCYTE ESTERASE ,URINE NEGATIVE (NEGATIVE); NITRITE,URINE NEGATIVE (NEGATIVE); PH,URINE 5.5 (5-9); PROTEIN,URINE NEGATIVE (NEGATIVE)
[2020-11-30] MEDS ORDERED: ACHD5005 PO (19:15)
[2020-11-30 19:17] LABS: BACTERIA,URINE NEGATIVE /HPF; RBC,URINE 0-2 /HPF; WBC,URINE 0-2 /HPF
[2020-11-30 19:50] VITALS: BP 112/56
== END 2020-11-30 19:50 | disposition home or self-care (01) ==
LOC: EDUNIT# 16:23 → ER 16:25
DX: G89.18 Other acute postprocedural pain (principal); I10 Essential (primary) hypertension; E78.00 Pure hypercholesterolemia, unspecified; K21.9 Gastro-esophageal reflux disease without esophagitis; E03.9 Hypothyroidism, unspecified; E11.9 Type 2 diabetes mellitus without complications; Z79.82 Long term (current) use of aspirin; Z79.899 Other long term (current) drug therapy; Z79.890 Hormone replacement therapy
CPT/HCPCS: 36415; 51702; 74176; 80053; 81000; 83690; 85007; 85027; 96374; 96376

== ENCOUNTER → 2021-02-01 | Outpatient (CLI) | payer MEDICARE ==
[~2021-02-01] VITALS: Ht 157 cm; Wt 54.0 kg
[~2021-02-01] MED LIST changes: +CATHETER FLUSH 10 ML SYR IV PRN; +REGADENOSON 0.4 MG/5 ML SYR (LEXISCAN) IV ONE
[2021-02-01 09:23] VITALS: BP 154/81
--- NOTE | 2021-02-01 12:52 | Cardiology Stress Test Report ---
Stress Test Report Date of Procedure/Referring: Date of Procedure: Feb 01, 2021 PCP David Gaviria MD Admitting Physician Khoa Corbett Indications: HTN Baseline Heart Rate: 72 Baseline Blood Pressure: Blood Pressure Systolic: 154 Blood Pressure Diastolic: 81 Baseline Vitals Vital Signs Date Time Temp Pulse Resp B/P (MAP) Pulse Ox O2 Delivery O2 Flow Rate FiO2 02/01/21 09:23 72 18 154/81 (105) 98 Room Air Baseline EKG: Baseline EKG: NSR Summary After explaining the procedure to the patient, she signed a consent and then brought to the stress nuclear laboratory. Patient received 0.4 mg Lexiscan for stress test, ECG, heart rate and blood pressure were monitored continuously. Resting and stress dose of radio tracer were injected, imaging was acquired and reviewed in short axis, horizontal long axis and vertical long axis views. TID: 1.14 SSS: 4 SDS: 2 EF: 62 1. Patient tolerated Lexiscan well 2. No significant ischemia or infarction on SPECT images 3. Normal left ventricular size, EF 62% DAVID GAVIRIA MD Feb 01, 2021 12:52
== END ==
LOC: CARD 08:15
PROVIDERS: ATTEND Internal Medicine Cardiovascular Disease
DX: I10 Essential (primary) hypertension (principal); I25.10 Atherosclerotic heart disease of native coronary artery without angina pectoris
CPT/HCPCS: 78452; 93017; A9502

== ENCOUNTER 2021-11-11 12:14 | Observation (INO) | payer MEDICARE ==
[~2021-11-11] VITALS: Ht 157.5 cm; Wt 47.0 kg
[~2021-11-11 12:14] MED LIST changes: -AMIO200T6 PO; +AMIO200T65 PO; -CATHETER FLUSH 10 ML SYR IV PRN; -REGADENOSON 0.4 MG/5 ML SYR (LEXISCAN) IV ONE
[2021-11-11] MEDS ORDERED: NS IV 1000 ML 1,000 ML IV ONE (12:45)
[2021-11-11] MEDS ORDERED: fentaNYL INJ 100 MCG/2 ML AMP IVP ONE (12:45)
--- NOTE | 2021-11-11 12:54 | ED Fall/Injury ---
General Chief Complaint: Trauma-Non Activation Stated Complaint: FALL Nursing Triage Note: pt to by ck co ems with cc of a same level fall, head,neck, bi lat shoulder, and pelvis pain. denies loc, c collar in place on arrival. states she fell about 1800 hrs last night, to in er at 1229. states she just tripped over her feet. Source: patient Exam Limitations: no limitations History of Present Illness Date Seen by Provider: Nov 11, 2021 Time Seen by Provider: 12:30 Initial Comments Patient to the ER by EMS with chief complaint of fall from the same level st riking the back of her head with a knot on her head and some pain in her neck and her midline back between her shoulder blades. She fell 1800 yesterday evening, 18 hours ago she is not sure if she had loss of consciousness. She is not on a blood thinner. She is 1 day out of [place] for antibiotics which finished up the day prior. She had an abscess collection that was being drained by an anterior ventral drain putting out very little per patient. The drain tube is not in place and the patient states she did not recall it being pulled out. She is not having any nausea or vomiting but she has having some pain in bilateral shoulders and hips. Surgery was performed by Dr. London: patient with a fistula tract related to ileostomy takedown from 1 year ago. The fistula tract had some abscess formation around it. Patient was found by [facility] this morning. She was too weak to get up on her own and her life alert pendant was either not charged or the device the sense of the signal was unplugged. This is unclear. Allergies and Home Medications Allergies Coded Allergies: Penicillins (Verified Allergy, Unknown, 08/20/20) raspberry (Verified Allergy, Unknown, 08/20/20) Patient Home Medication List Home Medication List Reviewed: Yes Amitriptyline HCl (Amitriptyline HCl) 100 Mg Tablet, 100 MG PO HS, (Reported) Entered as Reported by: CHAZ HARDING on 03/03/20 1433 Amlodipine Besylate (Amlodipine Besylate) 10 Mg Tablet, 10 MG PO DAILY, (Reported) Entered as Reported by: CHAZ HARDING on 02/28/20 1109 Aspirin (Aspirin) 81 Mg Tab.chew, 81 MG PO DAILY, (Reported) Entered as Reported by: CHAZ HARDING on 02/28/20 1110 Atorvastatin Calcium (Atorvastatin Calcium) 20 Mg Tablet, 20 MG PO DAILY, (Reported) Entered as Reported by: CHAZ HARDING on 03/03/20 1433 Carvedilol (Carvedilol) 12.5 Mg Tablet, 12.5 MG PO BID, (Reported) Entered as Reported by: FRED GOLDBERG on 10/05/20 1503 Cetirizine HCl (Cetirizine HCl) 10 Mg Tablet, 10 MG PO BID, (Reported) Entered as Reported by: CHAZ HARDING on 02/28/20 1109 Fenofibrate (Fenofibrate) 160 Mg Tablet, 160 MG PO DAILY, (Reported) Entered as Reported by: CHAZ HARDING on 03/03/20 1433 Ferrous Sulfate (Iron) 325 Mg Tablet, 325 MG PO BID, (Reported) Entered as Reported by: CHAZ HARDING on 03/04/20 1256 Fish Oil/Dha/Epa (Fish Oil 1,200 mg Fish Oil) 1 Each Capsule, 2 EACH PO BID, (Reported) Entered as Reported by: CHAZ HARDING on 03/03/20 1448 Hydrocodone/Acetaminophen (Hydrocodone-Acetamin 5-325 mg) 1 Each Tablet, 1 TAB PO Q4H PRN for PAIN-MODERATE (5-7) Prescribed by: JESS FISHER on 11/30/20 191 Leflunomide (Leflunomide) 20 Mg Tablet, 20 MG PO Q48H, (Reported) Entered as Reported by: CHAZ HARDING on 03/03/20 1434 Levothyroxine Sodium (Levothyroxine Sodium) 112 Mcg Tablet, 112 MCG PO GUILLORY,TU,WE,REFUGIO,FR,SA, (Reported) Entered as Reported by: CHAZ HARDING on 03/03/20 1433 Pantoprazole Sodium (Pantoprazole Sodium) 40 Mg Tablet.dr, 40 MG PO DAILY, (Reported) Entered as Reported by: CHAZ HARDING on 03/03/20 1433 Pilocarpine (Salagen) 5 Mg Tab, 10 MG PO BID, (Reported) Entered as Reported by: CHAZ HARDING on 03/03/20 1433 Pioglitazone HCl (Pioglitazone HCl) 30 Mg Tablet, 30 MG PO DAILY, (Reported) Entered as Reported by: CHAZ HARDING on 03/03/20 1433 Simethicone (Gas Relief 80) 80 Mg Tab.chew, 80 MG PO UD PRN for GAS, (Reported) Entered as Reported by: CHAZ HARDING on 03/03/20 1433 Sodium Bicarbonate (Sodium Bicarbonate) 650 Mg Tablet, 650 MG PO BID, (Reported) Entered as Reported by: KAIN ALVARADO on 09/29/20 1307 Tramadol HCl (Tramadol HCl) 50 Mg Tablet, 50 MG PO QID Prescribed by: YADIRA LONDON on 11/27/20 1509 Review of Systems Review of Systems Constitutional: No chills, No diaphoresis Eyes: Denies Blindness, Denies Blurred Vision Ears, Nose, Mouth, Throat: denies ear pain, denies ear discharge Respiratory: No cough, No phlegm, No short of breath Cardiovascular: No chest pain, No edema Gastrointestinal: No abdominal pain, No nausea, No vomiting Genitourinary: No discharge, No dysuria Musculoskeletal: back pain; No joint pain All Other Systems Reviewed Negative Unless Noted: Yes Past Blvzzuk-Syzxgx-Citoqz Hx Patient Social History Tobacco Use?: No Use of E-Cig and/or Vaping dev: No Seasonal Allergies Seasonal Allergies: No Past Medical History Surgeries: Yes Abdominal, Bowel Surgery, Cardiac, Gallbladder, Hysterectomy, Nephrectomy, Oophorectomy, Tonsillectomy Respiratory: No Currently Using CPAP: No Cardiac: Yes (AFIB/[facility]/CARDIOVERSION 12/2019; ) Atrial Fibrillation, High Cholesterol, Hypertension Neurological: No Reproductive Disorders: Yes (OVARIAN CANCER) [employer] History: Hysterectomy, Menopausal Sexually Transmitted Disease: No HIV/AIDS: No Genitourinary: Yes (HAS ONLY 1 KIDNEY (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 HAD REMOVED CAUSE BLOOD VESSELS WRAPPED ) Bladder Infection Gastrointestinal: Yes (PERMANENT ILEOSTOMY/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/2019;[facility]) Colitis, Gastroesophageal Reflux, Liver Disease/Jaundice, C-Diff, Gall Bladder Disease Musculoskeletal: Yes (RA/OSTEOARTHRITIS) Arthritis, Rheumatoid Arthritis Endocrine: Yes Hypothyroidsim, Diabetes, Non-Insulin dep HEENT: No Cancer: Yes Ovarian Did You Recieve Any Treatments: Yes What Type of Treatment Did You: Surgical Intervention Psychosocial: No Integumentary: Yes (DELAYED HEALING OF SURGICAL WOUND; PERISTOMAL SKIN BREAKDOWN) Blood Disorders: No Adverse Reaction/Blood Tranf: No Family Medical History Arthritis 19 MOTHER Cardiovascular disease 19 MOTHER Diabetes mellitus 19 FATHER 19 MOTHER PAST MEDICAL /SURGICAL HISTORY: -12/2019--HAD SEVERE C. DIFFICILE COLITIS--ADMITTED TO [facility] 01/21/20. PT HAD SYNCOPAL EPISODE WITH LOSS OF PULSE AND CPR/RESUSCITATION FOR APPROXIMATELY 2 MINUTES WITH [facility]. DURING THAT STAY SHE HAD ATRIAL FIBRILLATION WITH [facility] THAT REQUIRED CARDIOVERSION PT UNDERWENT SUBTOTAL COLECTOMY WITH PERMANENT ILEOSTOMY. PT REPORTS THAT SHE WAS ON VENTILATOR FOR 10 DAYS PT WAS TRANSFERRED FROM [facility] TO [facility], AND WAS THERE FROM 02/08/20-02/28/20, THEN TRANSFERRED HERE FOR REHAB FROM 02/28/20-03/10/20. SEEING WOUND CARE FOR DELAYED HEALING OF MIDLINE SURGICAL WOUND AND SKIN BREAKDOWN AROUND STOMA. 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 JOE -SEBACEOUS CYST OF ABDOMINAL WALL REMOVED 05/[address] JOE -SUBTOTAL COLECTOMY WITH PERMANENT ILEOSTOMY 12/2019 AT [facility] BY DR. BRYANT Physical Exam Vital Signs Vital Signs - First Documented 11/11/21 12:32 Temp 37.3 Pulse 119 Resp 22 B/P (MAP) 150/91 (110) Pulse Ox 100 O2 Delivery Room Air Capillary Refill : Less Than 3 Seconds Height, Weight, BMI Height: '" Weight: lbs. oz. kg; 19.00 BMI Method:Stated General Appearance: WD/WN, no apparent distress HEENT: PERRL/EOMI, pharynx normal Neck: full range of motion, supple, normal inspection Cardiovascular: normal peripheral pulses, regular rate, rhythm, no edema, tachycardia (120) Respiratory: lungs clear, normal breath sounds, no respiratory distress, no accessory muscle use Gastrointestinal: normal bowel sounds, non tender, soft, other (Clean dry open fistula ventral line below the umbilicus) Back: normal inspection, vertebral tenderness (Midline vertebral tenderness without deformity, crepitus or step-off between the shoulder blades.) Extremities: normal range of motion, non-tender, normal capillary refill Neurologic/Psychiatric: alert, normal mood/affect, oriented x 3 Skin: normal color, warm/dry [place] Coma Score Best Eye Response: (4) Open Spontaneously Best Verbal Response: (5) Oriented Best Motor Response: (6) Obeys Commands Miko Total: 15 Progress/Results/Core Measures Results/Orders Lab Results Laboratory Tests Test 11/11/21 13:05 11/11/21 14:48 Range/Units White Blood Count 5.7 4.3-11.0 10^3/uL Red Blood Count 4.15 3.80-5.11 10^6/uL Hemoglobin 11.9 11.5-16.0 g/dL Hematocrit 38 35-52 % Mean Corpuscular Volume 91 80-99 fL Mean Corpuscular Hemoglobin 29 25-34 pg Mean Corpuscular Hemoglobin Concent 32 32-36 g/dL Red Cell Distribution Width 18.7 H 10.0-14.5 % Platelet Count 283 130-400 10^3/uL Mean Platelet Volume 10.1 9.0-12.2 fL Immature Granulocyte % (Auto) 0 % Neutrophils (%) (Auto) 68 42-75 % Lymphocytes (%) (Auto) 19 12-44 % Monocytes (%) (Auto) 8 0-12 % Eosinophils (%) (Auto) 3 0-10 % Basophils (%) (Auto) 2 0-10 % Neutrophils # (Auto) 3.9 1.8-7.8 10^3/uL Lymphocytes # (Auto) 1.1 1.0-4.0 10^3/uL Monocytes # (Auto) 0.4 0.0-1.0 10^3/uL Eosinophils # (Auto) 0.2 0.0-0.3 10^3/uL Basophils # (Auto) 0.1 0.0-0.1 10^3/uL Immature Granulocyte # (Auto) 0.0 0.0-0.1 10^3/uL Sodium Level 140 135-145 MMOL/L Potassium Level 3.6 3.6-5.0 MMOL/L Chloride Level 105 98-107 MMOL/L Carbon Dioxide Level 14 L 21-32 MMOL/L Anion Gap 21 H 5-14 MMOL/L Blood Urea Nitrogen 8 7-18 MG/DL Creatinine 0.93 0.60-1.30 MG/DL Estimat Glomerular Filtration Rate 64 BUN/Creatinine Ratio 9 Glucose Level 58 *L 70-105 MG/DL Calcium Level 8.5 8.5-10.1 MG/DL Corrected Calcium 9.1 8.5-10.1 MG/DL Total Bilirubin 0.5 0.1-1.0 MG/DL Aspartate Amino Transf (AST/SGOT) 215 H 5-34 U/L Alanine Aminotransferase (ALT/SGPT) 65 H 0-55 U/L Alkaline Phosphatase 61 40-136 U/L Total Creatine Kinase 186 H 29-168 U/L C-Reactive Protein High Sensitivity 3.02 H 0.00-0.50 MG/DL Total Protein 7.4 6.4-8.2 GM/DL Albumin 3.2 3.2-4.5 GM/DL Glucometer 98 70-110 MG/DL My Orders Orders - KHADAR SIMMONS Ekg Tracing (11/11/21 12:43) Ed Iv/Invasive Line Start (11/11/21 12:41) Ns Iv 1000 Ml (Sodium Chloride 0.9%) (11/11/21 12:45) Fentanyl Inj (Sublimaze Injection) (11/11/21 12:45) Ct Head/Cervical Spine Wo (11/11/21 12:41) Ct Thoracic Spine Wo (11/11/21 12:41) Pelvis/Ezekiel Hips 5> Views (11/11/21 12:41) Cbc With Automated Diff (11/11/21 12:41) Comprehensive Metabolic Panel (11/11/21 12:41) Hs C Reactive Protein (11/11/21 12:41) Shoulder, Bilateral, 2 Views (11/11/21 12:55) D50w (Emergency) Syringe (Dextrose 50% 5 (11/11/21 14:00) Creatine Kinase (11/11/21 14:03) Accucheck Stat ONCE (11/11/21 14:44) Ua Culture If Indicated (11/11/21 14:46) Medications Given in ED Current Medications Medications Dose Ordered Sig/Kay Route Start Time Stop Time Status Last Admin Dose Admin Dextrose 25 ml ONCE ONCE IV 11/11/21 14:00 11/11/21 14:01 DC 11/11/21 13:57 25 ML Fentanyl Citrate 50 mcg ONCE ONCE IVP 11/11/21 12:45 11/11/21 12:49 DC 11/11/21 13:12 50 MCG Sodium Chloride 1,000 ml @ 0 mls/hr Q0M ONCE IV 11/11/21 12:45 11/11/21 12:49 DC 11/11/21 13:12 1,000 MLS/HR Vital Signs/I&O 11/11/21 11/11/21 12:32 13:12 Temp 37.3 37.3 Pulse 119 Resp 22 B/P (MAP) 150/91 (110) Pulse Ox 100 O2 Delivery Room Air Blood Pressure Mean: 110 Progress Progress Note : Time: 12:53 Progress Note Plan to get CT of the head, C-spine, thoracic spine, plain films of the bilateral hips and shoulders. Labs. If her labs are unremarkable then we will not need to go further into her abdominal cavity as she is not having any complaints from there today. Initial ECG Impression Date: Nov 11, 2021 Initial ECG Impression Time: 12:47 Initial ECG Rate: 117 Initial ECG Rhythm: S.Tach Initial ECG Intervals: Normal Initial ECG Impression: Normal Comment Sinus tachycardia without clinically relevant ST changes Diagnostic Imaging Diagonstic Imaging: CT Plain Films/CT/US/NM/MRI: c-spine, head Comments NAME: NATHANIEL CAMARILLO [facility] REC#: [id number] PT STATUS: REG ER : 1945 PHYSICIAN: KHADAR SIMMONS MD ADMIT DATE: 11/11/21/ER Draft Date of Exam:11/11/21 CT HEAD/CERVICAL SPINE WO PROCEDURE: CT head and CT cervical spine without contrast. TECHNIQUE: Multiple contiguous axial images were obtained through the brain and cervical spine without the use of intravenous contrast. Sagittal and coronal reformations through the cervical spine were then performed. Auto Exposure Controls were utilized during the CT exam to meet ALARA standards for radiation dose reduction. INDICATION: Fall with head and neck pain. COMPARISON: No prior studies are available for comparison. CT HEAD: The ventricles and sulci are consistent with the patient's age. No sulcal effacement or midline shift is identified. No acute intra-axial or extra-axial hemorrhage is detected. Cisterns are patent. Visualized paranasal sinuses are clear. IMPRESSION: 1. No acute intracranial process is detected. CT CERVICAL SPINE: Curvature and alignment of the cervical spine is normal. No fracture or subluxation is identified. The prevertebral tissues are within normal limits. Odontoid is intact. IMPRESSION: 1. No acute bony abnormality is detected. Dictated on workstation # [id number] Dict: 11/11/21 1344 Trans: 11/11/21 1349 [facility] [id number] Interpreted by: LIZZETH DE LA PAZ MD Electronically signed by: Reviewed: Reviewed by Ca Diagonstic Imaging: CT Plain Films/CT/US/NM/MRI: other (Thoracic spine) Comments NAME: NATHANIEL CAMARILLO [employer] REC#: [id number] PT STATUS: REG ER : 1945 PHYSICIAN: KHADAR SIMMONS MD ADMIT DATE: 11/11/21/ER Draft Date of Exam:11/11/21 CT THORACIC SPINE WO PROCEDURE: CT thoracic spine without contrast. TECHNIQUE: Multiple axial computerized tomography images were obtained from the base of the thoracic spine to the vertex without intravenous contrast. Auto Exposure Controls were utilized during the CT exam to meet ALARA standards for radiation dose reduction. INDICATION: Fall and back pain. FINDINGS: Curvature and alignment of the thoracic spine is normal. Vertebral body heights are maintained. No fractures are seen. The bony spinal canal appears to be patent. Paraspinous tissues are unremarkable. IMPRESSION: No acute bony abnormality is detected. Dictated on workstation # [id number] Dict: 11/11/21 1402 Trans: 11/11/21 1416 [id number] Interpreted by: LIZZETH DE LA PAZ MD Electronically signed by: Reviewed: Reviewed by Ca Diagonstic Imaging: Xray Plain Films/CT/US/NM/MRI: other (Bilateral shoulders) Comments [facility] [place] NAME: NATHANIEL CAMARILLO [employer] REC#: [id number] PT STATUS: REG ER : 1945 PHYSICIAN: KHADAR SIMMONS MD ADMIT DATE: 11/11/21/ER Draft Date of Exam:11/11/21 SHOULDER, BILATERAL, 2 VIEWS INDICATION: Fall with bilateral shoulder pain. TIME OF EXAM: 1:42 p.m. FINDINGS: Glenohumeral and acromioclavicular alignment are normal bilaterally. Acromiohumeral space is normal bilaterally. No fracture or dislocation is identified. IMPRESSION: No acute abnormality is detected. Dictated on workstation # [id number] Dict: 11/11/21 1402 Trans: 11/11/21 1406 [id number] Interpreted by: LIZZETH DE LA PAZ MD Electronically signed by: Reviewed: Reviewed by Me Diagonstic Imaging: Xray Plain Films/CT/US/NM/MRI: pelvis, hip (Bilateral) Comments [facility] [place] [place] NAME: NATHANIEL CAMARILLO [facility] REC#: [id number] PT STATUS: REG ER : 1945 PHYSICIAN: KHADAR SIMMONS MD ADMIT DATE: 11/11/21/ER Draft Date of Exam:11/11/21 PELVIS/EZEKIEL HIPS 5> VIEWS INDICATION: Fall with hip pain. TIME OF EXAM: 01:38 p.m. TECHNIQUE: AP view of the pelvis and two views of each hip were obtained. FINDINGS: Femoroacetabular alignment is normal bilaterally. Both femoral heads and necks appear to be intact. Rami are intact. A drainage catheter overlies midline pelvis. IMPRESSION: No acute bony abnormality is detected. Dictated on workstation # [id number] Dict: 11/11/21 1401 Trans: 11/11/21 1407 AS [id number] Interpreted by: LIZZETH DE LA PAZ MD Electronically signed by: Reviewed: Reviewed by Me Departure Communication (Admissions) Time/Spoke to Admitting Phy: 14:55 Discussed the case with Dr. Muniz who agrees to observe the patient for IV fluids with a surgical consult. She will put in queued orders. Time/Spoke to Consulting Phy: 15:00 Discussed the case with Dr. Ortega and he agrees to consult for general surgery. He will come see the patient Impression Primary Impression: Hypoglycemia Additional Impressions: Rhabdomyolysis Qualified Codes: T79.6XXA - Traumatic ischemia of muscle, initial encounter Fall Qualified Codes: W19.XXXA - Unspecified fall, initial encounter Dehydration Physical debility Disposition: ADMITTED INPATIENT Condition: Stable Admissions Decision to Admit Reason: Admit from ER (General) Decision to Admit/Date: Nov 11, 2021 Time/Decision to Admit Time: 14:49 Departure-Patient Inst. Referrals: KIMBERLY HANNON (PCP/Family) Primary Care Physician KHADAR SIMMONS Nov 11, 2021 12:54
[2021-11-11 13:15] LABS: BASOPHILS # (AUTO) 0.1 10^3/uL (0.0-0.1); BASOPHILS % (AUTO) 2 % (0-10); EOSINOPHILS # (AUTO) 0.2 10^3/uL (0.0-0.3); EOSINOPHILS % (AUTO) 3 % (0-10); HEMATOCRIT 38 % (35-52); HEMOGLOBIN 11.9 g/dL (11.5-16.0); LYMPHOCYTES # (AUTO) 1.1 10^3/uL (1.0-4.0); LYMPHOCYTES % (AUTO) 19 % (12-44); MEAN CORPUSCULAR HEMOGLOBIN 29 pg (25-34); MEAN CORPUSCULAR HGB CONC 32 g/dL (32-36); MEAN CORPUSCULAR VOLUME 91 fL (80-99); MEAN PLATELET VOLUME 10.1 fL (9.0-12.2); MONOCYTES # (AUTO) 0.4 10^3/uL (0.0-1.0); MONOCYTES % (AUTO) 8 % (0-12); NEUTROPHILS # (AUTO) 3.9 10^3/uL (1.8-7.8); NEUTROPHILS % (AUTO) 68 % (42-75); PLATELET COUNT 283 10^3/uL (130-400); WHITE BLOOD COUNT 5.7 10^3/uL (4.3-11.0)
[2021-11-11 13:25] LABS: ALBUMIN 3.2 GM/DL (3.2-4.5); POTASSIUM 3.6 MMOL/L (3.6-5.0)
[2021-11-11 13:26] LABS: CALCIUM 8.5 MG/DL (8.5-10.1)
[2021-11-11 13:27] LABS: TOTAL PROTEIN 7.4 GM/DL (6.4-8.2)
[2021-11-11 13:29] LABS: BILIRUBIN,TOTAL 0.5 MG/DL (0.1-1.0)
[2021-11-11 13:31] LABS: CREATININE SERUM 0.93 MG/DL (0.60-1.30)
--- NOTE | 2021-11-11 13:49 | Diagnostic Imaging Report ---
PROCEDURE: CT head and CT cervical spine without contrast. TECHNIQUE: Multiple contiguous axial images were obtained through the brain and cervical spine without the use of intravenous contrast. Sagittal and coronal reformations through the cervical spine were then performed. Auto Exposure Controls were utilized during the CT exam to meet ALARA standards for radiation dose reduction. INDICATION: Fall with head and neck pain. COMPARISON: No prior studies are available for comparison. CT HEAD: The ventricles and sulci are consistent with the patient's age. No sulcal effacement or midline shift is identified. No acute intra-axial or extra-axial hemorrhage is detected. Cisterns are patent. Visualized paranasal sinuses are clear. IMPRESSION: 1. No acute intracranial process is detected. CT CERVICAL SPINE: Curvature and alignment of the cervical spine is normal. No fracture or subluxation is identified. The prevertebral tissues are within normal limits. Odontoid is intact. IMPRESSION: 1. No acute bony abnormality is detected. Dictated by: Dictated on workstation # [id number]
[2021-11-11] MEDS ORDERED: DEXTROSE 50% 50 ML (IMS) SYR IV ONE (14:00)
--- NOTE | 2021-11-11 14:06 | Diagnostic Imaging Report ---
INDICATION: Fall with bilateral shoulder pain. TIME OF EXAM: 1:42 p.m. FINDINGS: Glenohumeral and acromioclavicular alignment are normal bilaterally. Acromiohumeral space is normal bilaterally. No fracture or dislocation is identified. IMPRESSION: No acute abnormality is detected. Dictated by: Dictated on workstation # [id number]
--- NOTE | 2021-11-11 14:07 | Diagnostic Imaging Report ---
INDICATION: Fall with hip pain. TIME OF EXAM: 01:38 p.m. TECHNIQUE: AP view of the pelvis and two views of each hip were obtained. FINDINGS: Femoroacetabular alignment is normal bilaterally. Both femoral heads and necks appear to be intact. Rami are intact. A drainage catheter overlies midline pelvis. IMPRESSION: No acute bony abnormality is detected. Dictated by: Dictated on workstation # [id number]
--- NOTE | 2021-11-11 14:17 | Diagnostic Imaging Report ---
PROCEDURE: CT thoracic spine without contrast. TECHNIQUE: Multiple axial computerized tomography images were obtained from the base of the thoracic spine to the vertex without intravenous contrast. Auto Exposure Controls were utilized during the CT exam to meet ALARA standards for radiation dose reduction. INDICATION: Fall and back pain. FINDINGS: Curvature and alignment of the thoracic spine is normal. Vertebral body heights are maintained. No fractures are seen. The bony spinal canal appears to be patent. Paraspinous tissues are unremarkable. IMPRESSION: No acute bony abnormality is detected. Dictated by: Dictated on workstation # [id number]
--- NOTE | 2021-11-11 16:21 | Consultation - Surgery ---
LUZMA KLINE 11/11/21 1621: History of Present Illness History of Present Illness Patient Consulted On(argelia/time) 11/11/21 16:13 Date Seen by Provider: Nov 11, 2021 Time Seen by Provider: 15:04 Reason for Visit: Fall History of Present Illness Ms. Garcia is a 76 year old female who presented to the ED after a fall. She remained on the ground from 1800 yesterday to around 1100 this morning. Patient denies a LOC preceding or after her fall. General surgery was consulted for an abdominal drain that was placed around 2-3 weeks ago. She states the drains was placed for drainage of an abscess in her abdomen. Patient was at [facility] recently and was discharged yesterday. She denies any abdominal pain at this time; she reports pain in her hip from her fall. She denies any nausea or vomiting. Patient had an ileostomy takedown and fistula tract repaired by Dr. London last October. Allergies and Home Medications Allergies Coded Allergies: Penicillins (Verified Allergy, Unknown, 08/20/20) raspberry (Verified Allergy, Unknown, 08/20/20) Patient Home Medication List Amitriptyline HCl (Amitriptyline HCl) 100 Mg Tablet, 100 MG PO HS, (Reported) Entered as Reported by: CHAZ HARDING on 03/03/20 1433 Amlodipine Besylate (Amlodipine Besylate) 10 Mg Tablet, 10 MG PO DAILY, (Reported) Entered as Reported by: CHAZ HARDING on 02/28/20 1109 Aspirin (Aspirin) 81 Mg Tab.chew, 81 MG PO DAILY, (Reported) Entered as Reported by: CHAZ HARDING on 02/28/20 1110 Atorvastatin Calcium (Atorvastatin Calcium) 20 Mg Tablet, 20 MG PO DAILY, (Reported) Entered as Reported by: CHAZ HARDING on 03/03/20 1433 Carvedilol (Carvedilol) 12.5 Mg Tablet, 12.5 MG PO BID, (Reported) Entered as Reported by: FRED GOLDBERG on 10/05/20 1503 Cetirizine HCl (Cetirizine HCl) 10 Mg Tablet, 10 MG PO BID, (Reported) Entered as Reported by: CHAZ HARDING on 02/28/20 1109 Fenofibrate (Fenofibrate) 160 Mg Tablet, 160 MG PO DAILY, (Reported) Entered as Reported by: CHAZ HARDING on 03/03/20 1433 Ferrous Sulfate (Iron) 325 Mg Tablet, 325 MG PO BID, (Reported) Entered as Reported by: CHAZ HARDING on 03/04/20 1256 Fish Oil/Dha/Epa (Fish Oil 1,200 mg Fish Oil) 1 Each Capsule, 2 EACH PO BID, (Reported) Entered as Reported by: CHAZ HARDING on 03/03/20 1448 Hydrocodone/Acetaminophen (Hydrocodone-Acetamin 5-325 mg) 1 Each Tablet, 1 TAB PO Q4H PRN for PAIN-MODERATE (5-7) Prescribed by: JESS FISHER on 11/30/20 191 Leflunomide (Leflunomide) 20 Mg Tablet, 20 MG PO Q48H, (Reported) Entered as Reported by: CHAZ HARDING on 03/03/20 1434 Levothyroxine Sodium (Levothyroxine Sodium) 112 Mcg Tablet, 112 MCG PO GUILLORY,T U,WE,REFUGIO,FR,SA, (Reported) Entered as Reported by: CHAZ HARDING on 03/03/20 1433 Pantoprazole Sodium (Pantoprazole Sodium) 40 Mg Tablet.dr, 40 MG PO DAILY, (Reported) Entered as Reported by: CHAZ HARDING on 03/03/20 1433 Pilocarpine (Salagen) 5 Mg Tab, 10 MG PO BID, (Reported) Entered as Reported by: CHAZ HARDING on 03/03/20 1433 Pioglitazone HCl (Pioglitazone HCl) 30 Mg Tablet, 30 MG PO DAILY, (Reported) Entered as Reported by: CHAZ HARDING on 03/03/20 1433 Simethicone (Gas Relief 80) 80 Mg Tab.chew, 80 MG PO UD PRN for GAS, (Reported) Entered as Reported by: CHAZ HARDING on 03/03/20 1433 Sodium Bicarbonate (Sodium Bicarbonate) 650 Mg Tablet, 650 MG PO BID, (Reported) Entered as Reported by: KAIN ALVARADO on 09/29/20 1307 Tramadol HCl (Tramadol HCl) 50 Mg Tablet, 50 MG PO QID Prescribed by: YADIRA LONDON on 11/27/20 1509 Past Mbmsfam-Wniico-Gbxowf Hx Patient Social History Smoking Status: Former Smoker Former Smoker, Quit: Jul 28, 1984 Type Used: Cigarettes 2nd Hand Smoke Exposure: No Recent Hopitalizations: No Alcohol Use?: No Have you traveled recently?: No Immunizations Up To Date Date of Pneumonia Vaccine: Feb 06, 2020 Date of Influenza Vaccine: Feb 05, 2020 Seasonal Allergies Seasonal Allergies: No Surgeries History of Surgeries: Yes Surgeries: Abdominal, Bowel Surgery, Cardiac, Gallbladder, Hysterectomy, Nephrectomy, Oophorectomy, Tonsillectomy Respiratory History of Respiratory Disorde: No Cardiovascular History of Cardiac Disorders: Yes (AFIB/RVR/CARDIOVERSION 12/2019; ) Cardiac Disorders: Atrial Fibrillation, High Cholesterol, Hypertension Neurological History of Neurological Disord: No Reproductive System Hx Reproductive Disorders: Yes (OVARIAN CANCER) Sexually Transmitted Disease: No 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, 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 Genitourinary History of Genitourinary Disor: Yes (HAS ONLY 1 KIDNEY (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 HAD REMOVED CAUSE BLOOD VESSELS WRAPPED ) Genitourinary Disorders: Bladder Infection Gastrointestinal History of Gastrointestinal Di: Yes (PERMANENT ILEOSTOMY/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/2019;[facility]) Gastrointestinal Disorders: Colitis, Gastroesophageal Reflux, Liver Disease/Jaundice, C-Diff, Gall Bladder Disease Musculoskeletal History of Musculoskeletal Dis: Yes (RA/OSTEOARTHRITIS) Musculoskeletal Disorders: Arthritis, Rheumatoid Arthritis Endocrine History of Endocrine Disorders: Yes Endocrine Disorders: Hypothyroidsim, Diabetes, Non-Insulin dep HEENT History of HEENT Disorders: No Cancer History of Cancer: Yes Cancer: Ovarian Psychosocial History of Psychiatric Problem: No Integumentary History of Skin or Integumenta: Yes (DELAYED HEALING OF SURGICAL WOUND; PERISTOMAL SKIN BREAKDOWN) Blood Transfusions History of Blood Disorders: No Adverse Reaction to a Blood Tr: No Family Medical History Family Medial History: Arthritis 19 MOTHER Cardiovascular disease 19 MOTHER Diabetes mellitus 19 FATHER 19 MOTHER Review of Systems-General Constitutional: No chills, No dizziness, No fever Respiratory: No cough, No dyspnea on exertion Cardiovascular: No chest pain, No palpitations Gastrointestinal: No abdominal pain, No nausea, No vomiting Musculoskeletal: joint pain, muscle pain Physical Exam-General Problems Physical Exam Vital Signs Vital Signs - First Documented 11/11/21 12:32 Temp 37.3 Pulse 119 Resp 22 B/P (MAP) 150/91 (110) Pulse Ox 100 O2 Delivery Room Air Capillary Refill : Less Than 3 Seconds General Appearance: no apparent distress, thin HEENT: PERRL/EOMI; No pale conjunctivae (R), No pale conjunctivae (L) Neck: non-tender, supple Respiratory: chest non-tender, lungs clear, normal breath sounds, no respiratory distress, no accessory muscle use Cardiovascular: normal peripheral pulses, regular rate, rhythm, no edema Peripheral Pulses: 2+ Radial Pulses (R), 2+ Radial Pulses (L) Gastrointestinal: normal bowel sounds, non tender, soft, other (Drain in ventral abdomen) Extremities: non-tender, no pedal edema Neurologic/Psychiatric: no motor/sensory deficits, alert, normal mood/affect, oriented x 3 Skin: normal color, ecchymosis (Right hip) Data Review Labs Laboratory Tests 11/11/21 13:05: White Blood Count 5.7, Red Blood Count 4.15, Hemoglobin 11.9, Hematocrit 38, Mean Corpuscular Volume 91, Mean Corpuscular Hemoglobin 29, Mean Corpuscular Hemoglobin Concent 32, Red Cell Distribution Width 18.7H, Platelet Count 283, Mean Platelet Volume 10.1, Immature Granulocyte % (Auto) 0, Neutrophils (%) (Auto) 68, Lymphocytes (%) (Auto) 19, Monocytes (%) (Auto) 8, Eosinophils (%) (Auto) 3, Basophils (%) (Auto) 2, Neutrophils # (Auto) 3.9, Lymphocytes # (Auto) 1.1, Monocytes # (Auto) 0.4, Eosinophils # (Auto) 0.2, Basophils # (Auto) 0.1, Immature Granulocyte # (Auto) 0.0, Sodium Level 140, Potassium Level 3.6, Chloride Level 105, Carbon Dioxide Level 14L, Anion Gap 21H, Blood Urea Nitrogen 8, Creatinine 0.93, Estimat Glomerular Filtration Rate 64, BUN/Creatinine Ratio 9, Glucose Level 58*L, Calcium Level 8.5, Corrected Calcium 9.1, Total Bilirubin 0.5, Aspartate Amino Transf (AST/SGOT) 215H, Alanine Aminotransferase (ALT/SGPT) 65H, Alkaline Phosphatase 61, Total Creatine Kinase 186H, C-Reactive Protein High Sensitivity 3.02H, Total Protein 7.4, Albumin 3.2 11/11/21 14:48: Glucometer 98 Assessment/Plan Assessment/Plan Assessment/Plan Fall Weakness and debility Abdominal drain In ventral abdomen Transaminitis AST:ALT of > 3:1 Elevated CK Likely 2/2 prolonged time spent on the ground after her fall Plan: Admit to the floor Continue with IV fluids and labs Consider CT abdomen and pelvis to learn more about the purpose of the drain in place No urgent surgical intervention noted at this time ALEJO LOPEZ DO 11/11/21 2235: History of Present Illness History of Present Illness History of Present Illness Patient is a 76-year-old female who presents emergency department after fall. Patient fell approximately 6 PM yesterday evening and was found by Monique this morning around 11 AM. Patient denies any loss of consciousness. Patient states that she just got out of [place] yesterday. She states that approximately 3 weeks ago that she had a drain placed in her abdomen. This was first to a bulb suction and then just to being open she states. She is not having any pain around the area. She has minimal drainage from the area. She had an ileostomy takedown with anastomosis approximately 1 year ago. She states that she had been ill a few times over the last year but was not having any significant issues until she had this abscess formation. She is unsure why the drain was placed. This was done at outside hospital. Patient feeling extremely weak. Family at bedside also trying to provide information as well. Allergies and Home Medications Allergies Coded Allergies: Penicillins (Verified Allergy, Unknown, 08/20/20) raspberry (Verified Allergy, Unknown, 08/20/20) Patient Home Medication List Home Medication List Reviewed: Yes Amitriptyline HCl (Amitriptyline HCl) 100 Mg Tablet, 100 MG PO HS, (Reported) Entered as Reported by: CHAZ HARDING on 03/03/20 1433 Amlodipine Besylate (Amlodipine Besylate) 10 Mg Tablet, 10 MG PO DAILY, (Reported) Entered as Reported by: CHAZ HARDING on 02/28/20 1109 Aspirin (Aspirin) 81 Mg Tab.chew, 81 MG PO DAILY, (Reported) Entered as Reported by: CHAZ HARDING on 02/28/20 1110 Atorvastatin Calcium (Atorvastatin Calcium) 20 Mg Tablet, 20 MG PO DAILY, (Reported) Entered as Reported by: CHAZ HARDING on 03/03/20 1433 Carvedilol (Carvedilol) 12.5 Mg Tablet, 12.5 MG PO BID, (Reported) Entered as Reported by: FRED GOLDBERG on 10/05/20 1503 Cetirizine HCl (Cetirizine HCl) 10 Mg Tablet, 10 MG PO BID, (Reported) Entered as Reported by: CHAZ HARDING on 02/28/20 1109 Fenofibrate (Fenofibrate) 160 Mg Tablet, 160 MG PO DAILY, (Reported) Entered as Reported by: CHAZ HARDING on 03/03/20 1433 Ferrous Sulfate (Iron) 325 Mg Tablet, 325 MG PO BID, (Reported) Entered as Reported by: CHAZ HARDING on 03/04/20 1256 Fish Oil/Dha/Epa (Fish Oil 1,200 mg Fish Oil) 1 Each Capsule, 2 EACH PO BID, (Reported) Entered as Reported by: CHAZ HARDING on 03/03/20 1448 Hydrocodone/Acetaminophen (Hydrocodone-Acetamin 5-325 mg) 1 Each Tablet, 1 TAB PO Q4H PRN for PAIN-MODERATE (5-7) Prescribed by: JESS FISHER on 11/30/20 1915 Leflunomide (Leflunomide) 20 Mg Tablet, 20 MG PO Q48H, (Reported) Entered as Reported by: CHAZ HARDING on 03/03/20 1434 Levothyroxine Sodium (Levothyroxine Sodium) 112 Mcg Tablet, 112 MCG PO GUILLORY,TU,WE,REFUGIO,FR,SA, (Reported) Entered as Reported by: CHAZ HARDING on 03/03/20 1433 Pantoprazole Sodium (Pantoprazole Sodium) 40 Mg Tablet.dr, 40 MG PO DAILY, (Rep orted) Entered as Reported by: CHAZ HARDING on 03/03/20 1433 Pilocarpine (Salagen) 5 Mg Tab, 10 MG PO BID, (Reported) Entered as Reported by: CHAZ HARDING on 03/03/20 1433 Pioglitazone HCl (Pioglitazone HCl) 30 Mg Tablet, 30 MG PO DAILY, (Reported) Entered as Reported by: CHAZ HARDING on 03/03/20 1433 Simethicone (Gas Relief 80) 80 Mg Tab.chew, 80 MG PO UD PRN for GAS, (Reported) Entered as Reported by: CHAZ HARDING on 03/03/20 1433 Sodium Bicarbonate (Sodium Bicarbonate) 650 Mg Tablet, 650 MG PO BID, (Reported) Entered as Reported by: KAIN ALVARADO on 09/29/20 1307 Tramadol HCl (Tramadol HCl) 50 Mg Tablet, 50 MG PO QID Prescribed by: YADIRA LONDON on 11/27/20 1509 Past Dubxjmt-Dhnuhk-Jarqqa Hx Patient Social History Smoking Status: Former Smoker Surgeries History of Surgeries: Yes (Abdominal, Bowel Surgery, Cardiac, Gallbladder, Hysterectomy, Nephrectomy, ) Reviewed Nursing Assessment Reviewed/Agree w Nursing PMH: Yes Family Medical History Significant Family History: No Pertinent Family Hx Family Medial History: Arthritis 19 MOTHER Cardiovascular disease 19 MOTHER Diabetes mellitus 19 FATHER 19 MOTHER Review of Systems-General Constitutional: No chills, No dizziness, No fever EENTM: No blurred vision, No double vision Respiratory: No cough, No dyspnea on exertion Cardiovascular: No chest pain, No palpitations Gastrointestinal: No abdominal pain, No nausea, No vomiting Genitourinary: No decreased output, No discharge Musculoskeletal: joint pain, muscle pain Skin: No change in color, No change in hair/nails Psychiatric/Neurological: Denies Anxiety, Denies Depressed, Denies Emotional Problems All Other Systems Reviewed Negative Unless Noted: Yes (Negative excepted noted.) Physical Exam-General Problems Physical Exam General Appearance: no apparent distress, thin HEENT: PERRL/EOMI; No pale conjunctivae (R), No pale conjunctivae (L) Neck: non-tender, supple Respiratory: chest non-tender, no respiratory distress, no accessory muscle use Cardiovascular: normal peripheral pulses, regular rate, rhythm Gastrointestinal: non tender, soft, other (Drain in ventral abdomen, very minimal succus appearing drainage) Rectal: deferred Back: no CVA tenderness, no vertebral tenderness Extremities: non-tender, no pedal edema Neurologic/Psychiatric: alert, normal mood/affect, oriented x 3 Skin: normal color, ecchymosis (Right hip) Lymphatic: no adenopathy Assessment/Plan Assessment/Plan Assessment/Plan Fall Weakness and debility Abdominal drain In ventral abdomen Possible enterocutaneous fistula Transaminitis Elevated CK-Likely 2/2 prolonged time spent on the ground after her fall Patient with no acute fractures or head trauma by radiology imaging. Patient with a drained we will try to obtain records to determine exact placement and reasoning, from [facility]. questionable enterocutaneous fistula to this area or this was to drain the abscess. No surrounding signs of infection no fluctuance or erythema around the area so I feel less likely related to infection at this time. She has plans to see Dr. London next week. If cannot obtain records and has changes to the abdomen would consider CT scan of the abdomen pelvis with oral contrast. Medical management at this time. Supervisory-Addendum Brief Verification & Attestation Participated in pt care: history, MDM, physical Personally performed: exam, history, MDM, supervision of care Care discussed with: Medical Student Procedures: n/a Results interpretation: Verified all documentation Verification and Attestation of Medical Student E/M Service A medical student performed and documented this service in my presence. I reviewed and verified all information documented by the medical student and made modifications to such information, when appropriate. I personally performed the physical exam and medical decision making. Alejo Lopez, Nov 11, 2021,22:35 LUZMA KLINE Nov 11, 2021 16:21 ALEJO LOPEZ DO Nov 11, 2021 22:35
[2021-11-11 17:26] VITALS: BP 205/92
[2021-11-11] MEDS ORDERED: LACTULOSE SYRUP 10GM/15ML (ENULOSE) 30ML UDC PO PRN (17:45)
[2021-11-11] MEDS ORDERED: MILK OF MAGNESIA 400 MG/5 ML 30 ML UDC PO PRN (17:45)
[2021-11-11] MEDS ORDERED: diphenhydrAMINE 25 MG TAB (BENADRYL) PO PRN (17:45)
[2021-11-11] MEDS ORDERED: diphenhydrAMINE 50 MG/ML INJ (BENADRYL) IVP PRN (17:45)
[2021-11-11] MEDS ORDERED: morphine INJ 4 MG/ML 1 ML (VIAL/SYRINGE) IV PRN (17:45)
[2021-11-11] MEDS ORDERED: polyethylene glycoL POWDER 17 GM (MIRALAX) PACK PO PRN (17:45)
[2021-11-11] MEDS ORDERED: ACETAMINOPHEN 325 MG TABLET PO PRN (17:45)
[2021-11-11] MEDS ORDERED: MELATONIN 3 MG TABLET PO PRN (17:45)
[2021-11-11] MEDS ORDERED: ANTACID SUSP 30 ML UDC (MYLANTA) PO PRN (17:45)
[2021-11-11] MEDS ORDERED: ENOXAPARIN 40 MG/0.4 ML (LOVENOX) SYR SC SCH (17:45)
[2021-11-11] MEDS ORDERED: CALCIUM CARBONATE 500 MG (TUMS) TAB.CHEW PO PRN (17:45)
[2021-11-11] MEDS ORDERED: BISACODYL 10 MG SUPP (DULCOLAX) PR PRN (17:45)
[2021-11-11] MEDS ORDERED: ONDANSETRON 4 MG (ZOFRAN) ORAL DISSOLVE TAB PO PRN (17:45)
[2021-11-11] MEDS ORDERED: ONDANSETRON 4 MG/2 ML (SDV) Z0FRAN IV PRN (17:45)
[2021-11-11] MEDS: D5 NS 1000 ML IV SOLUTION 1,000 ML IV SCH (17:50)
[2021-11-11] MEDS ORDERED: ENOXAPARIN INJECTION 30 MG/0.3 ML SYR SC SCH (18:00)
[2021-11-11 18:25] VITALS: BP 205/92
[2021-11-11] MEDS ORDERED: RT-ALBUTEROL SULF 2.5 MG/3 ML PRE-MIX VIAL INH PRN (18:30)
[2021-11-11 19:35] VITALS: BP 165/81
[2021-11-11] MEDS: DOCUSATE SODIUM 100 MG (COLACE) CAP PO SCH (20:08)
[2021-11-11] MEDS: SENNOSIDES 8.6 MG (SENOKOT) TAB PO SCH (20:09)
[2021-11-11 23:13] VITALS: BP 145/85
[2021-11-12 03:13] VITALS: BP 163/92
[2021-11-12] MEDS: D5 NS 1000 ML IV SOLUTION 1,000 ML IV SCH (06:34)
[2021-11-12 07:46] VITALS: BP 142/96
--- NOTE | 2021-11-12 07:48 | Progress Note - Surgery ---
LUZMA KLINE 11/12/21 0747: Subjective Date Seen by a Provider: Nov 12, 2021 Time Seen by a Provider: 06:58 Subjective/Events-last exam Ms. Garcia is being followed for a drain in her ventral abdomen. This morning she has complaints of pain on her posterior head where she thinks she hit her head when she fell. She also endorses subjective fever and chills. She denies any abdominal pain or drainage from her drain. She is currently on a liquid diet and would like to be advanced if tolerated. Review of Systems General: Chills; No Fatigue; Other Pulmonary: No Dyspnea, No Cough Cardiovascular: No: Chest Pain, Palpitations Gastrointestinal: No: Nausea, Vomiting, Abdominal Pain Neurological: No: Weakness, Confusion Objective Exam Vital Signs Date Time Temp Pulse Resp B/P (MAP) Pulse Ox O2 Delivery O2 Flow Rate FiO2 11/12/21 07:00 134 11/12/21 03:13 36.3 83 18 163/92 (115) 100 Room Air 11/12/21 01:00 103 11/11/21 23:13 37.0 98 18 145/85 (105) 98 Room Air 11/11/21 20:38 37.2 11/11/21 20:08 38.5 11/11/21 19:35 38.5 110 18 165/81 (109) 100 Room Air 11/11/21 19:29 116 11/11/21 18:25 36.9 130 93 11/11/21 17:26 36.9 131 18 205/92 (129) 93 Room Air 11/11/21 17:00 Room Air 11/11/21 16:56 37.2 115 20 138/82 100 Room Air 11/11/21 13:12 37.3 11/11/21 12:32 37.3 119 22 150/91 (110) 100 Room Air I & O 11/12/21 07:00 Intake Total 2650 ml Balance 2650 ml Capillary Refill : Less Than 3 Seconds General Appearance: No Apparent Distress, Thin HEENT: PERRL/EOMI, Moist Mucous Membranes Neck: Non Tender, Supple Respiratory: Chest Non Tender, Lungs Clear, Normal Breath Sounds, No Accessory Muscle Use, No Respiratory Distress Cardiovascular: Regular Rate, Rhythm, No Edema, No Murmur, Normal Peripheral Pulses Peripheral Pulses: 2+ Radial Pulses (R), 2+ Radial Pulses (L) Gastrointestinal: non tender, soft, other (Drain in ventral abdomen, very minimal succus appearing drainage) Extremity: Non Tender, No Pedal Edema Neurologic/Psychiatric: Alert, Oriented x3, No Motor/Sensory Deficits, 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, 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 Norm as Tested Skin: Normal Color, Warm/Dry Results Lab Laboratory Tests 11/11/21 13:05: White Blood Count 5.7, Red Blood Count 4.15, Hemoglobin 11.9, Hematocrit 38, Mean Corpuscular Volume 91, Mean Corpuscular Hemoglobin 29, Mean Corpuscular Hemoglobin Concent 32, Red Cell Distribution Width 18.7H, Platelet Count 283, Mean Platelet Volume 10.1, Immature Granulocyte % (Auto) 0, Neutrophils (%) (Auto) 68, Lymphocytes (%) (Auto) 19, Monocytes (%) (Auto) 8, Eosinophils (%) (Auto) 3, Basophils (%) (Auto) 2, Neutrophils # (Auto) 3.9, Lymphocytes # (Auto) 1.1, Monocytes # (Auto) 0.4, Eosinophils # (Auto) 0.2, Basophils # (Auto) 0.1, Immature Granulocyte # (Auto) 0.0, Sodium Level 140, Potassium Level 3.6, Chloride Level 105, Carbon Dioxide Level 14L, Anion Gap 21H, Blood Urea Nitrogen 8, Creatinine 0.93, Estimat Glomerular Filtration Rate 64, BUN/Creatinine Ratio 9, Glucose Level 58*L, Calcium Level 8.5, Corrected Calcium 9.1, Total Bilirubin 0.5, Aspartate Amino Transf (AST/SGOT) 215H, Alanine Aminotransferase (ALT/SGPT) 65H, Alkaline Phosphatase 61, Total Creatine Kinase 186H, C-Reactive Protein High Sensitivity 3.02H, Total Protein 7.4, Albumin 3.2 11/11/21 14:48: Glucometer 98 11/11/21 17:46: Glucometer 65L 11/11/21 18:47: Glucometer 94 11/11/21 19:40: Glucometer 88 11/11/21 20:21: Glucometer 105 11/11/21 21:10: Glucometer 122H 11/11/21 22:33: Glucometer 127H 11/11/21 23:16: Glucometer 140H 11/12/21 00:17: Glucometer 123H 11/12/21 02:02: Glucometer 103 11/12/21 03:11: Glucometer 97 11/12/21 04:09: Glucometer 149H 11/12/21 05:38: Glucometer 70 11/12/21 06:28: Glucometer 74 Assessment/Plan Assessment/Plan Assessment/Plan Fall Weakness and debility Abdominal drain In ventral abdomen Transaminitis AST:ALT of > 3:1 Elevated CK Likely 2/2 prolonged time spent on the ground after her fall Plan: Admit to the floor Continue with IV fluids and labs Consider CT abdomen and pelvis if abdominal pathology or changes are noted. Records requested from [facility] in [place], [place] No urgent surgical intervention noted at this time Consider advancing to soft diet ALEJO LOPEZ DO 11/12/21 1548: Subjective Subjective/Events-last exam Patient with headache. No abdominal pain. With fever today. Slight chills. Tolerating diet. Records received from [facility] drain through fistula causing an abscess. Denies n/v sweats shortness of breath of chest pain. Objective Exam General Appearance: No Apparent Distress, Thin HEENT: PERRL/EOMI, Normal ENT Inspection Neck: Non Tender, Supple Respiratory: Chest Non Tender, No Accessory Muscle Use, No Respiratory Distress Cardiovascular: Regular Rate, Rhythm, No JVD Gastrointestinal: non tender, soft, other (Drain in ventral abdomen, very minimal succus appearing drainage at midline at skin opening no signs of infection) Extremity: Non Tender Neurologic/Psychiatric: Alert, Oriented x3, 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 Skin: Normal Color, Warm/Dry Lymphatic: No Adenopathy Assessment/Plan Assessment/Plan Assessment/Plan Fall Covid Weakness and debility Abdominal drain In ventral abdomen Transaminitis AST:ALT of > 3:1 Elevated CK Likely 2/2 prolonged time spent on the ground after her fall Records reviewed drain through fistula into abscess, can keep in place. place ostomy appliance around to control drainage. does not appear to be infected currently and has follow up with Dr. Nieves. Will sign off call if needed. Supervisory-Addendum Brief Verification & Attestation Participated in pt care: history, MDM, physical Personally performed: exam, history, MDM, supervision of care Care discussed with: Medical Student Procedures: n/a Results interpretation: Verified all documentation Verification and Attestation of Medical Student E/M Service A medical student performed and documented this service in my presence. I reviewed and verified all information documented by the medical student and made modifications to such information, when appropriate. I personally performed the physical exam and medical decision making. Alejo Lopez, Nov 12, 2021,15:48 LUZMA KLINE Nov 12, 2021 07:47 ALEJO LOPEZ DO Nov 12, 2021 15:48
[2021-11-12] MEDS: SENNOSIDES 8.6 MG (SENOKOT) TAB PO SCH (09:01)
[2021-11-12] MEDS: DOCUSATE SODIUM 100 MG (COLACE) CAP PO SCH (09:01)
[2021-11-12 09:14] LABS: BASOPHILS # (AUTO) 0.1 10^3/uL (0.0-0.1); BASOPHILS % (AUTO) 1 % (0-10); EOSINOPHILS # (AUTO) 0.1 10^3/uL (0.0-0.3); EOSINOPHILS % (AUTO) 1 % (0-10); HEMATOCRIT 41 % (35-52); HEMOGLOBIN 12.3 g/dL (11.5-16.0); LYMPHOCYTES % (AUTO) 16 % (12-44); MEAN CORPUSCULAR HEMOGLOBIN 29 pg (25-34); MEAN CORPUSCULAR HGB CONC 30 g/dL (32-36); MEAN CORPUSCULAR VOLUME 95 fL (80-99); MEAN PLATELET VOLUME 10.7 fL (9.0-12.2); MONOCYTES # (AUTO) 0.3 10^3/uL (0.0-1.0); MONOCYTES % (AUTO) 5 % (0-12); NEUTROPHILS # (AUTO) 4.8 10^3/uL (1.8-7.8); NEUTROPHILS % (AUTO) 77 % (42-75); PLATELET COUNT 284 10^3/uL (130-400); WHITE BLOOD COUNT 6.3 10^3/uL (4.3-11.0)
[2021-11-12 09:15] LABS: ALBUMIN 2.9 GM/DL (3.2-4.5); BILIRUBIN,TOTAL 0.4 MG/DL (0.1-1.0); CALCIUM 7.6 MG/DL (8.5-10.1); CREATININE SERUM 0.83 MG/DL (0.60-1.30); POTASSIUM 4.5 MMOL/L (3.6-5.0); TOTAL PROTEIN 7.1 GM/DL (6.4-8.2)
[2021-11-12 09:17] LABS: SMEAR SCAN COMMENT YES
--- NOTE | 2021-11-12 09:48 | Physical Therapy Evaluation ---
PT Evaluation-General Medical Diagnosis Admission Date Nov 11, 2021 at 15:45 Medical Diagnosis: dehydration/fall/hypoglycemia Onset Date: Nov 11, 2021 Therapy Diagnosis Therapy Diagnosis: generalized weakness/debility Precautions Precautions/Isolations: Fall Prevention, Standard Precautions Referral Physician: Flavio Reason for Referral: Evaluation/Treatment Medical History Pertinent Medical History: Atrial Fib, DM, HTN, Hypothroidism, Renal Insufficiency Additional Medical History ovarian cancer Current History EMS secondary patient tripped over her own feet resulting in a fall. Reviewed History: Yes Social History Home: Single Level Current Living Status: Alone Entry Into Home: Stairs With Railing PT Steps Into Home: 4 Prior Prior Level of Function SCALE: Activities may be completed with or without assistive devices. 2-Ocnznghlqk-bthylyw completes the activity by him/herself with no assistance from a helper. 5-Set-up or Clean-up Assistance-helper sets up or cleans up; patient completes activity. Apache assists only prior to or following the activity. 4-Supervision or Touching Assistance-helper provides verbal cues and/or touching/steadying and/or contact guard assistance as patient completes activity. Assistance may be provided throughout the activity or intermittently. 3-Partial/Moderate Assistance-helper does LESS THAN HALF the effort. Apache lifts, holds or supports trunk or limbs, but provides less than half the effort. 2-Substantial/Maximal Assistance-helper does MORE THAN HALF the effort. Apache lifts or holds trunk or limbs and provides more than half the effort. 9-Zvevyrmfx-neygrf does ALL the effort. Patient does none of the effort to complete the activity. Or, the assistance of 2 or more helpers is required for the patient to complete the activity. If activity was not attempted, code reason: 7-Patient Refused. 9-Not Applicable-not attempted and the patient did not perform the activity before the current illness, exacerbation or injury. 10-Not Attempted due to Environmental Limitations-(lack of equipment, weather restraints, etc.). 88-Not Attempted due to Medical Conditions or Safety Concerns. Bed Mobility: 6 Transfers (B,C,W/C): 6 Gait: 6 Stairs: 6 Indoor Mobility (Ambulation): Independent Stairs: Independent Prior Devices Use: Walker (4WW) PT Evaluation-Current Subjective Patient reluctantly agrees to PT. Objective Patient Orientation: Normal For Age Attachments: IV ROM/Strength ROM Lower Extremities bilateral LE WFL Strength Lower Extremities 3/5 grossly bilateral LE all planes Integumentary/Posture Integumentary refer to nursing notes Bowel Incontinence: No Bladder Incontinence: No Posture WFL Neuromuscular (Tone, Coordination, Reflexes) grossly intact Sensory Vision: Wears Glasses Hearing: Functional Transfers Sit to Stand (QC): 4 Toilet Transfer (QC): 4 Gait Does the Patient Walk?: Yes Mode of Locomotion: Walk Anticipated Mode of Locomotion: Walk Walk 10 feet (QC): 4 Walk 50 ft with 2 Turns(QC): 4 Walk 150 ft (QC): 4 Distance: 150' Gait Assistive Device: FWW Comments/Gait Description slow, steady with no deviation Balance Sitting Static: Normal Sitting Dynamic: Normal Standing Static: Good Standing Dynamic: Good Assessment/Needs Patient does fatigue with minimal activity and will benefit from skilled PT to address functional strength and mobility to ensure safe return to home at maximum LOF. Rehab Potential: Fair PT Mcc Goals Poolroom/Poolhall Manager Goals PT Poolroom/Poolhall Manager Goals Time Frame: Nov 20, 2021 Roll Left & Right (QC): 6 Sit to Lying (QC): 6 Lying-Sitting on Side/Bed(QC): 6 Sit to Stand (QC): 6 Chair/Ndu-ks-Qspiu Xfer(QC): 6 Toilet Transfer (QC): 6 Walk 10 feet (QC): 6 Walk 50ft with 2 Turns (QC): 6 Walk 150 ft (QC): 6 PT Plan Problem List Problem List: Activity Tolerance, Functional Strength, Safety, Gait, Transfer Treatment/Plan Treatment Plan: Continue Plan of Care Treatment Plan: Bed Mobility, Education, Functional Activity Maikel, Functional Strength, Gait, Safety, Therapeutic Exercise, Transfers Treatment Duration: Nov 20, 2021 Frequency: 6 times per week Estimated Hrs Per Day: .25 hour per day Patient and/or Family Agrees t: Yes Time/GCodes Time In: 911 Time Out: 922 Total Billed Treatment Time: 11 Total Billed Treatment 1 visit EVMod 11 min ARELI JENNINGS PT Nov 12, 2021 09:48
--- NOTE | 2021-11-12 10:10 | Short Stay Summary ---
History of Present Illness History of Present Illness Reason for visit/HPI CC: Debility with fall HPI: This is a 76 yr old female. She just discharged from [facility] after a long course after an ileostomy revision. She presented to the ER with complaints of fallen on the floor and laid there for 18 hours. Home health nurse is the one that found her. CPK was only slightly elevated. She is doing well now. IV fluids. She will go down to in-patient rehab. Date of Admission Nov 11, 2021 at 15:45 Date of Discharge 11/12/21 Time Seen by Provider: 09:00 Attending Physician Khoa Corbett Admitting Physician Admitting Physician: Nena Muniz DO Attending Physician: Nena Muniz DO Consult Allergies and Home Medications Allergies Coded Allergies: Penicillins (Verified Allergy, Unknown, 08/20/20) raspberry (Verified Allergy, Unknown, 08/20/20) Patient Home Medication List Home Medication List Reviewed: Yes Acetaminophen (Tylenol Arthritis) 650 Mg Tablet.er, 650 MG PO Q6H PRN for PAIN- MILD (1-4) OR TEMPATURE, (Reported) Entered as Reported by: CHAZ HARDING on 11/12/21 1145 Amitriptyline HCl (Amitriptyline HCl) 100 Mg Tablet, 100 MG PO HS, (Reported) Entered as Reported by: CHAZ HARDING on 03/03/20 1433 Atorvastatin Calcium (Atorvastatin Calcium) 40 Mg Tablet, 40 MG PO 1700, (Reported) Entered as Reported by: CHAZ HARDING on 11/12/21 1145 Carvedilol (Carvedilol) 25 Mg Tablet, 25 MG PO BID, (Reported) Entered as Reported by: CHAZ HARDING on 11/12/21 1145 Cetirizine HCl (Cetirizine HCl) 10 Mg Tablet, 10 MG PO DAILY, (Reported) Entered as Reported by: CHAZ HARDING on 02/28/20 1109 Cholecalciferol (Vitamin D3) (Vitamin D3) 25 Mcg (1000 Unit) Capsule, 25 MCG PO DAILY, (Reported) Entered as Reported by: CHAZ HARDING on 11/12/21 1145 Docusate Sodium (Docusate Sodium) 100 Mg Tablet, 100 MG PO BID, (Reported) Entered as Reported by: CHAZ HARDING on 11/12/21 1145 Famotidine (Famotidine) 20 Mg Tablet, 20 MG PO DAILY, (Reported) Entered as Reported by: CHAZ HARDING on 11/12/21 1145 Fenofibrate (Fenofibrate) 160 Mg Tablet, 160 MG PO HS, (Reported) Entered as Reported by: CHAZ HARDING on 03/03/20 1433 Ferrous Sulfate (Iron) 325 Mg Tablet, 325 MG PO BID, (Reported) Entered as Reported by: CHAZ HARDING on 03/04/20 1256 Latanoprost (Xalatan) 0.005 % Drops, 1 DROP OU HS, (Reported) Entered as Reported by: CHAZ HARDING on 11/12/21 1145 Leflunomide (Leflunomide) 20 Mg Tablet, 20 MG PO Q48H, (Reported) Entered as Reported by: CHAZ HARDING on 03/03/20 1434 Levothyroxine Sodium (Levothyroxine Sodium) 125 Mcg Tablet, 125 MCG PO DAILY, (Reported) Entered as Reported by: CHAZ HARDING on 11/12/21 1145 Nystatin (Nystatin) 100,000 Unit/Ml Oral.susp, 5 ML PO QID, (Reported) Entered as Reported by: CHAZ HARDING on 11/12/21 1145 Oxybutynin Chloride (Oxybutynin Chloride) 5 Mg Tablet, 5 MG PO BID, (Reported) Entered as Reported by: CHAZ HARDING on 11/12/21 1145 Saccharomyces Boulardii (Florastor) 250 Mg Capsule, 250 MG PO DAILY, (Reported) Entered as Reported by: CHAZ HARDING on 11/12/21 1145 Timolol Maleate (Timolol Maleate 0.5%) 0.5 % Drops, 1 DROP OU HS, (Reported) Entered as Reported by: CHAZ HARDING on 11/12/21 1145 Discontinued Medications Amlodipine Besylate (Amlodipine Besylate) 10 Mg Tablet, 10 MG PO DAILY, (Reported) Discontinued Reason: No Longer Taking Entered as Reported by: CHAZ HRADING on 02/28/20 1109 Aspirin (Aspirin) 81 Mg Tab.chew, 81 MG PO DAILY, (Reported) Discontinued Reason: No Longer Taking Entered as Reported by: CHAZ HARDING on 02/28/20 1110 Atorvastatin Calcium (Atorvastatin Calcium) 20 Mg Tablet, 20 MG PO DAILY, (Reported) Discontinued Reason: Prescription changed Entered as Reported by: CHAZ HARDING on 03/03/20 1433 Carvedilol (Carvedilol) 12.5 Mg Tablet, 12.5 MG PO BID, (Reported) Discontinued Reason: Prescription changed Entered as Reported by: FRED GOLDBERG on 10/05/20 1503 Fish Oil/Dha/Epa (Fish Oil 1,200 mg Fish Oil) 1 Each Capsule, 2 EACH PO BID, (Reported) Discontinued Reason: No Longer Taking Entered as Reported by: CHAZ HARDING on 03/03/20 1448 Hydrocodone/Acetaminophen (Hydrocodone-Acetamin 5-325 mg) 1 Each Tablet, 1 TAB PO Q4H PRN for PAIN-MODERATE (5-7) Discontinued Reason: No Longer Taking Prescribed by: JESS FISHER on 11/30/20 1915 Levothyroxine Sodium (Levothyroxine Sodium) 112 Mcg Tablet, 112 MCG PO GUILLORY,TU,WE,REFUGIO,FR,SA, (Reported) Discontinued Reason: No Longer Taking Entered as Reported by: CHAZ HARDING on 03/03/20 1433 Pantoprazole Sodium (Pantoprazole Sodium) 40 Mg Tablet.dr, 40 MG PO DAILY, (Reported) Discontinued Reason: No Longer Taking Entered as Reported by: CHAZ HARDING on 03/03/20 1433 Pilocarpine (Salagen) 5 Mg Tab, 10 MG PO BID, (Reported) Discontinued Reason: No Longer Taking Entered as Reported by: CHAZ HARDING on 03/03/20 1433 Pioglitazone HCl (Pioglitazone HCl) 30 Mg Tablet, 30 MG PO DAILY, (Reported) Discontinued Reason: No Longer Taking Entered as Reported by: CHAZ HARDING on 03/03/20 1433 Simethicone (Gas Relief 80) 80 Mg Tab.chew, 80 MG PO UD PRN for GAS, (Reported) Discontinued Reason: No Longer Taking Entered as Reported by: CHAZ HARDING on 03/03/20 1433 Sodium Bicarbonate (Sodium Bicarbonate) 650 Mg Tablet, 650 MG PO BID, (Reported) Discontinued Reason: No Longer Taking Entered as Reported by: KAIN ALVARADO on 09/29/20 1307 Tramadol HCl (Tramadol HCl) 50 Mg Tablet, 50 MG PO QID Discontinued Reason: No Longer Taking Prescribed by: YADIRA LONDON on 11/27/20 9749 Past Wzxwoqb-Mhrhdc-Cnvonm Hx Patient Social History Marrital Status: single Employed/Student: retired Smoking Status: Former Smoker Former Smoker, Quit: Jul 28, 1984 2nd Hand Smoke Exposure: No Recent Hopitalizations: No Have you traveled recently?: No Alcohol Use?: No Pt feels they are or have been: No Tobacco type used: Cigarettes Immunizations Up To Date Date of Pneumonia Vaccine: Feb 06, 2020 Date of Influenza Vaccine: Feb 05, 2020 Seasonal Allergies Seasonal Allergies: No Surgeries Yes (Abdominal, Bowel Surgery, Cardiac, Gallbladder, Hysterectomy, Nephrectomy, ) Abdominal, Bowel Surgery, Cardiac, Gallbladder, Hysterectomy, Nephrectomy, Oophorectomy, Tonsillectomy Respiratory No Currently Using CPAP: No Cardiovascular Yes (AFIB/[facility]/CARDIOVERSION 12/2019; ) Atrial Fibrillation, High Cholesterol, Hypertension Neurological No Reproductive System Hx Reproductive Disorders: Yes (OVARIAN CANCER) Sexually Transmitted Disease: No HIV/AIDS: 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, Menopausal Genitourinary Yes (HAS ONLY 1 KIDNEY (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 HAD REMOVED CAUSE BLOOD VESSELS WRAPPED ) Bladder Infection Gastrointestinal Yes (PERMANENT ILEOSTOMY/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/2019;[facility]) Colitis, Gastroesophageal Reflux, Liver Disease/Jaundice, C-Diff, Gall Bladder Disease Musculoskeletal Yes (RA/OSTEOARTHRITIS) Arthritis, Rheumatoid Arthritis Endocrine History of Endocrine Disorders: Yes Endocrine Disorders: Hypothyroidsim, Diabetes, Non-Insulin dep HEENT History of HEENT Disorders: No Cancer Yes Ovarian Did You Recieve Any Treatments: Yes Type of Treatment: Surgical Intervention Psychosocial History of Psychiatric Problem: No Integumentary History of Skin or Integumenta: Yes (DELAYED HEALING OF SURGICAL WOUND; PERISTOMAL SKIN BREAKDOWN) Blood Transfusions History of Blood Disorders: No Adverse Reaction to a Blood Tr: No Reviewed Nursing Assessment Reviewed/Agree w Nursing PMH: Yes Family Medical History Significant Family History: No Pertinent Family Hx Other Significan Family Hx: PAST MEDICAL /SURGICAL HISTORY: -12/2019--HAD SEVERE C. DIFFICILE COLITIS--ADMITTED TO [facility] 01/21/20. PT HAD SYNCOPAL EPISODE WITH LOSS OF PULSE AND CPR/RESUSCITATION FOR APPROXIMATELY 2 MINUTES WITH [facility]. DURING THAT STAY SHE HAD ATRIAL FIBRILLATION WITH [facility] THAT REQUIRED CARDIOVERSION PT UNDERWENT SUBTOTAL COLECTOMY WITH PERMANENT ILEOSTOMY. PT REPORTS THAT SHE WAS ON VENTILATOR FOR 10 DAYS PT WAS TRANSFERRED FROM [facility] TO [facility], AND WAS THERE FROM 02/08/20-02/28/20, THEN TRANSFERRED HERE FOR REHAB FROM 02/28/20-03/10/20. SEEING WOUND CARE FOR DELAYED HEALING OF MIDLINE SURGICAL WOUND AND SKIN BREAKDOWN AROUND STOMA. 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 JOE -SEBACEOUS CYST OF ABDOMINAL WALL REMOVED 05/[address] JOE -SUBTOTAL COLECTOMY WITH PERMANENT ILEOSTOMY 12/[address] [facility] [address] BRYANT Family Hx: Arthritis 19 MOTHER Cardiovascular disease 19 MOTHER Diabetes mellitus 19 FATHER 19 MOTHER Review of Systems Constitutional: see HPI, malaise, weakness EENTM: no symptoms reported Respiratory: no symptoms reported Cardiovascular: no symptoms reported Gastrointestinal: no symptoms reported Genitourinary: no symptoms reported Musculoskeletal: no symptoms reported Skin: no symptoms reported Psychiatric/Neurological: Weakness All Other Systems Reviewed Negative Unless Noted: Yes Physical Exam Vital Signs Vital Signs - First Documented 11/11/21 12:32 Temp 37.3 Pulse 119 Resp 22 B/P (MAP) 150/91 (110) Pulse Ox 100 O2 Delivery Room Air Capillary Refill : Less Than 3 Seconds Height, Weight, BMI Height: '" Weight: lbs. oz. kg; 18.94 BMI Method:Stated General Appearance: No Apparent Distress, Chronically ill, Thin Neck: Normal Inspection, Non Tender Respiratory: Chest Non Tender, Lungs Clear, Normal Breath Sounds, No Accessory Muscle Use, No Respiratory Distress Cardiovascular: Regular Rate, Rhythm, No Edema, No Gallop, No JVD, No Murmur, Normal Peripheral Pulses Neurologic/Psychiatric: Alert, Oriented x3, No Motor/Sensory Deficits, 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 Short Stay Diagnosis Discharge Diagnosis-Short Stay Admission Diagnosis: Fall Found down for 18 hours Rhabdomyolysis Recent long course at [place] Final Discharge Diagnosis: Fall Found down for 18 hours Rhabdomyolysis Recent long course at [place] Conclusion Labs Laboratory Tests 11/11/21 13:05: White Blood Count 5.7, Red Blood Count 4.15, Hemoglobin 11.9, Hematocrit 38, Mean Corpuscular Volume 91, Mean Corpuscular Hemoglobin 29, Mean Corpuscular Hemoglobin Concent 32, Red Cell Distribution Width 18.7H, Platelet Count 283, Mean Platelet Volume 10.1, Immature Granulocyte % (Auto) 0, Neutrophils (%) (Auto) 68, Lymphocytes (%) (Auto) 19, Monocytes (%) (Auto) 8, Eosinophils (%) (Auto) 3, Basophils (%) (Auto) 2, Neutrophils # (Auto) 3.9, Lymphocytes # (Auto) 1.1, Monocytes # (Auto) 0.4, Eosinophils # (Auto) 0.2, Basophils # (Auto) 0.1, Immature Granulocyte # (Auto) 0.0, Sodium Level 140, Potassium Level 3.6, Chloride Level 105, Carbon Dioxide Level 14L, Anion Gap 21H, Blood Urea Nitrogen 8, Creatinine 0.93, Estimat Glomerular Filtration Rate 64, BUN/Creatinine Ratio 9, Glucose Level 58*L, Calcium Level 8.5, Corrected Calcium 9.1, Total Bilirubin 0.5, Aspartate Amino Transf (AST/SGOT) 215H, Alanine Aminotransferase (ALT/SGPT) 65H, Alkaline Phosphatase 61, Total Creatine Kinase 186H, C-Reactive Protein High Sensitivity 3.02H, Total Protein 7.4, Albumin 3.2 11/11/21 14:48: Glucometer 98 11/11/21 17:46: Glucometer 65L 11/11/21 18:47: Glucometer 94 11/11/21 19:40: Glucometer 88 11/11/21 20:21: Glucometer 105 11/11/21 21:10: Glucometer 122H 11/11/21 22:33: Glucometer 127H 11/11/21 23:16: Glucometer 140H 11/12/21 00:17: Glucometer 123H 11/12/21 02:02: Glucometer 103 11/12/21 03:11: Glucometer 97 11/12/21 04:09: Glucometer 149H 11/12/21 05:38: Glucometer 70 11/12/21 06:28: Glucometer 74 11/12/21 08:49: White Blood Count 6.3, Red Blood Count 4.29, Hemoglobin 12.3, Hematocrit 41, Mean Corpuscular Volume 95, Mean Corpuscular Hemoglobin 29, Mean Corpuscular Hemoglobin Concent 30L, Red Cell Distribution Width 19.3H, Platelet Count 284, Mean Platelet Volume 10.7, Immature Granulocyte % (Auto) 0, Neutrophils (%) (Auto) 77H, Lymphocytes (%) (Auto) 16, Monocytes (%) (Auto) 5, Eosinophils (%) (Auto) 1, Basophils (%) (Auto) 1, Neutrophils # (Auto) 4.8, Lymphocytes # (Auto) 1.0, Monocytes # (Auto) 0.3, Eosinophils # (Auto) 0.1, Basophils # (Auto) 0.1, Immature Granulocyte # (Auto) 0.0, Sodium Level 140, Potassium Level 4.5, Chloride Level 109H, Carbon Dioxide Level 12L, Anion Gap 19H, Blood Urea Nitrogen 5L, Creatinine 0.83, Estimat Glomerular Filtration Rate 73, BUN/Creatinine Ratio 6, Glucose Level 123H, Calcium Level 7.6L, Corrected Calcium 8.5, Total Bilirubin 0.4, Aspartate Amino Transf (AST/SGOT) 126H, Alanine Aminotransferase (ALT/SGPT) 53, Alkaline Phosphatase 58, Total Creatine Kinase 239H, Total Protein 7.1, Albumin 2.9L, Smear Scan YES Conclusion/Plan Tx to NENA AMANDA DO Nov 12, 2021 10:10
[2021-11-12 11:16] VITALS: BP 138/87
[2021-11-12 11:24] VITALS: BP 138/87
[2021-11-12] MEDS ORDERED: CHOL10007 PO (11:45)
[2021-11-12] MEDS ORDERED: TIMO5DRO5 OU (11:45)
[2021-11-12] MEDS ORDERED: NYST1000 PO (11:45)
[2021-11-12] MEDS ORDERED: SACC250C PO (11:45)
[2021-11-12] MEDS ORDERED: LEVO125T6 PO (11:45)
[2021-11-12] MEDS ORDERED: LATA2.5D19 OU (11:45)
[2021-11-12] MEDS ORDERED: OXYB5TAB13 PO (11:45)
[2021-11-12] MEDS ORDERED: CARV25TA PO (11:45)
[2021-11-12] MEDS ORDERED: DOCU100T2 PO (11:45)
[2021-11-12] MEDS ORDERED: ATOR40TA70 PO (11:45)
[2021-11-12] MEDS ORDERED: FAMO20TA5 PO (11:45)
[2021-11-12] MEDS ORDERED: ACET-2650 PO (11:45)
== END 2021-11-12 10:09 ==
LOC: EDUNIT# 12:14 → ER 12:21 → UNDOADMOB 15:45 → 4TH 15:45 → UNDODISOB 11-12 11:40
PROVIDERS: ADMIT Internal Medicine; ATTEND Internal Medicine
DX: M62.82 Rhabdomyolysis (principal); W19.XXXA Unspecified fall, initial encounter
CPT/HCPCS: 70450; 72125; 72128; 73030; 73523; 80053 ×2; 82550 ×2; 82947 ×2; 85025 ×2; 86141; 93005; 94760; 96361 ×2; 96372; 97162; 99284; G0378; 36415

== ENCOUNTER 2021-11-12 10:10 | Inpatient (IN) | payer MEDICARE ==
[~2021-11-12] VITALS: Ht 157.5 cm; Wt 47.0 kg
--- NOTE | 2021-11-12 10:54 | PM&R Post Admission Assessment ---
PM&R HP Date of Visit: Nov 12, 2021 Time of Visit: 11:45 History of Present Illness CC: Debility HPI: This is a 76 yr old WF who was transferred to in-patient rehab for debility and a fall. She was found to have Covid when high fever occurred with tachycardia. IV fluids initiated for lactic acid of 2.8 and potassium of 3.2. We will provide supportive care and place in isolation for Covid-19 infection. Past Pgeyobr-Ylxoxy-Ydrpit Hx Past Med/Social Hx: Reviewed Nursing Past Med/Soc Hx, Reviewed and Corrections made Patient Social History Marrital Status: single Former Smoker, Quit: Jul 28, 1984 Type Used: Cigarettes 2nd Hand Smoke Exposure: No Recent Hopitalizations: No Immunizations Up To Date Date of Pneumonia Vaccine: Feb 06, 2020 Date of Influenza Vaccine: Feb 05, 2020 Seasonal Allergies Seasonal Allergies: No Past Medical History Surgeries: Abdominal, Bowel Surgery, Cardiac, Gallbladder, Hysterectomy, Nephr ectomy, Oophorectomy, Tonsillectomy Currently Using CPAP: No Cardiac: Atrial Fibrillation, High Cholesterol, Hypertension Reproductive: Yes (OVARIAN CANCER) Sexually Transmitted Disease: No HIV/AIDS: No Hysterectomy, Menopausal Genitourinary: Bladder Infection solitary kidney Gastrointestinal: Colitis, Gastroesophageal Reflux, Liver Disease/Jaundice, C-Diff, Gall Bladder Disease Musculoskeletal: Arthritis, Rheumatoid Arthritis Endocrine: Hypothyroidsim, Diabetes, Non-Insulin dep Cancer: Ovarian Did You Recieve Any Treatments: Yes What Type of Treatment Did You: Surgical Intervention History of Blood Disorders: No Adverse Reaction to Blood Tucker: No Family History Arthritis 19 MOTHER Cardiovascular disease 19 MOTHER Diabetes mellitus 19 FATHER 19 MOTHER No Pertinent Family Hx PAST MEDICAL /SURGICAL HISTORY: -12/2019--HAD SEVERE C. DIFFICILE COLITIS--ADMITTED TO [facility] 01/21/20. PT HAD SYNCOPAL EPISODE WITH LOSS OF PULSE AND CPR/RESUSCITATION FOR APPROXIMATELY 2 MINUTES WITH [facility]C. DURING THAT STAY SHE HAD ATRIAL FIBRILLATION WITH [facility] THAT REQUIRED CARDIOVERSION PT UNDERWENT SUBTOTAL COLECTOMY WITH PERMANENT ILEOSTOMY. PT REPORTS THAT SHE WAS ON VENTILATOR FOR 10 DAYS PT WAS TRANSFERRED FROM [facility] TO [facility], AND WAS THERE FROM 02/08/20-02/28/20, THEN TRANSFERRED HERE FOR REHAB FROM 02/28/20-03/10/20. SEEING WOUND CARE FOR DELAYED HEALING OF MIDLINE SURGICAL WOUND AND SKIN BREAKDOWN AROUND STOMA. 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 JOE -SEBACEOUS CYST OF ABDOMINAL WALL REMOVED 05/[address] JOE -SUBTOTAL COLECTOMY WITH PERMANENT ILEOSTOMY 12/2019 AT [facility] BY DR. BRYANT Occupation: retired PM&R Allergy/Meds/Data Review Allergies Coded Allergies: Penicillins (Verified Allergy, Unknown, 08/20/20) raspberry (Verified Allergy, Unknown, 08/20/20) Home Medications Scheduled Amitriptyline HCl (Amitriptyline HCl), 100 MG PO HS, (Reported) Atorvastatin Calcium (Atorvastatin Calcium), 40 MG PO 1700, (Reported) Carvedilol (Carvedilol), 25 MG PO BID, (Reported) Cetirizine HCl (Cetirizine HCl), 10 MG PO DAILY, (Reported) Cholecalciferol (Vitamin D3) (Vitamin D3), 25 MCG PO DAILY, (Reported) Docusate Sodium (Docusate Sodium), 100 MG PO BID, (Reported) Famotidine (Famotidine), 20 MG PO DAILY, (Reported) Fenofibrate (Fenofibrate), 160 MG PO HS, (Reported) Ferrous Sulfate (Iron), 325 MG PO BID, (Reported) Latanoprost (Xalatan), 1 DROP OU HS, (Reported) Leflunomide (Leflunomide), 20 MG PO Q48H, (Reported) Levothyroxine Sodium (Levothyroxine Sodium), 125 MCG PO DAILY, (Reported) Nystatin (Nystatin), 5 ML PO QID, (Reported) Oxybutynin Chloride (Oxybutynin Chloride), 5 MG PO BID, (Reported) Saccharomyces Boulardii (Florastor), 250 MG PO DAILY, (Reported) Timolol Maleate (Timolol Maleate 0.5%), 1 DROP OU HS, (Reported) Scheduled PRN Acetaminophen (Tylenol Arthritis), 650 MG PO Q6H PRN for PAIN-MILD (1-4) OR TEMPATURE, (Reported) Discontinued Medications Amlodipine Besylate (Amlodipine Besylate), 10 MG PO DAILY, (Reported) Discontinued Reason: No Longer Taking Aspirin (Aspirin), 81 MG PO DAILY, (Reported) Discontinued Reason: No Longer Taking Atorvastatin Calcium (Atorvastatin Calcium), 20 MG PO DAILY, (Reported) Discontinued Reason: Prescription changed Carvedilol (Carvedilol), 12.5 MG PO BID, (Reported) Discontinued Reason: Prescription changed Fish Oil/Dha/Epa (Fish Oil 1,200 mg Fish Oil), 2 EACH PO BID, (Reported) Discontinued Reason: No Longer Taking Hydrocodone/Acetaminophen (Hydrocodone-Acetamin 5-325 mg), 1 TAB PO Q4H PRN for PAIN-MODERATE (5-7) Discontinued Reason: No Longer Taking Levothyroxine Sodium (Levothyroxine Sodium), 112 MCG PO GUILLORY,TU,WE,REFUGIO,FR,SA, (Reported) Discontinued Reason: No Longer Taking Pantoprazole Sodium (Pantoprazole Sodium), 40 MG PO DAILY, (Reported) Discontinued Reason: No Longer Taking Pilocarpine (Salagen), 10 MG PO BID, (Reported) Discontinued Reason: No Longer Taking Pioglitazone HCl (Pioglitazone HCl), 30 MG PO DAILY, (Reported) Discontinued Reason: No Longer Taking Simethicone (Gas Relief 80), 80 MG PO UD PRN for GAS, (Reported) Discontinued Reason: No Longer Taking Sodium Bicarbonate (Sodium Bicarbonate), 650 MG PO BID, (Reported) Discontinued Reason: No Longer Taking Tramadol HCl (Tramadol HCl), 50 MG PO QID Discontinued Reason: No Longer Taking Current Medications Current Medications Reviewed Review of Systems Constitutional: fever, malaise Physical Exam Physical Exam Vital Signs Capillary Refill : Height, Weight, BMI Height: '" Weight: lbs. oz. kg; 18.94 BMI Method:Stated General Appearance: Chronically ill, Mild Distress, Thin Neck: Full Range of Motion, Normal Inspection, Non Tender, Supple, Carotid Bruit Respiratory: Chest Non Tender, Lungs Clear, Normal Breath Sounds, No Accessory Muscle Use, No Respiratory Distress Cardiovascular: Regular Rate, Rhythm, Tachycardia Neurologic/Psychiatric: Alert, Oriented x3, No Motor/Sensory Deficits, 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 PM&R Medical Assessment & Plan REHAB/MEDICAL ASSESSMENT AND PLAN: REHAB IMPAIRMENT GROUP: [ ] ETIOLOGIC DIAGNOSIS: [ (condition that led to rehab admission) ] The comorbidities that impact the patients function and/or functional outcome by: [ ] REHAB PLAN: The patient is being admitted to our comprehensive inpatient rehabilitation facility and can tolerate the intensity of service consisting of at least: 180 minutes of therapy a day, 5 out of 7 days a week Rehab treatment will consist of: [ (write brief focus that includes physician, rehab nursing and therapies/modalitiesIPOC will have more specifics) ] The patient/family has a good understanding of our discharge process and will benefit from an interdisciplinary inpatient rehabilitation program. The patient has potential to make improvement and is in need of at least two of the following multidisciplinary therapies including but not limited to physical, occupational, speech, and prosthetics and orthotics. Additionally the patient will need services from respiratory, nutritional services, wound care, psychology, etc. (Customize this to each patient). Given the patients complex condition and risk of further medical complications, rehabilitation services cannot be safely or effectively provided at a lower level of care such as a longterm facility. BARRIERS TO DISCHARGE: [ ] ESTIMATED LOS: [ ] DISPOSITION: [ ] RELEVANT CHANGES SINCE PREADMISSION SCREENING: I have compared the patients medical and functional status at the time of the preadmission screening and there are: [no changes] [changes as follows: (if there is a discrepancy between the IGC/Etiologic stated on the PAS, address/clarify this as well) ] PROGNOSIS: [ ] REHABILITATION GOALS: 1. [ (specific to the patient) ] All the above goals were reviewed with the patient and he/she is in agreement. By signing this document, I acknowledge that I have personally performed a full physical examination on this patient within 24 hours of admission to this inpatient rehabilitation facility and have determined the patient to be able to tolerate the above course of treatment at an intensive level for a reasonable period of time. I will be completing a detailed individualized Plan of Care for this patient by day #4 of the patients stay based upon the Preadmission Screen, the Post-Admission Evaluation, and the therapy evaluations. Admission Dx/Comorbidities: (1) COVID ICD Codes: U07.1 - COVID-19 LORENZO MIMS DO Nov 12, 2021 10:54
[2021-11-12] MEDS ORDERED: ACETAMINOPHEN 325 MG TABLET PO PRN (11:00)
[2021-11-12] MEDS ORDERED: LOPERAMIDE 2 MG (IMODIUM) TABLET PO PRN (11:00)
[2021-11-12] MEDS ORDERED: MELATONIN 3 MG TABLET PO PRN (11:00)
[2021-11-12] MEDS ORDERED: DOCUSATE SODIUM 100 MG (COLACE) CAP PO PRN (11:00)
[2021-11-12] MEDS ORDERED: diphenhydrAMINE 25 MG TAB (BENADRYL) PO PRN (11:00)
[2021-11-12] MEDS ORDERED: CALCIUM CARBONATE 500 MG (TUMS) TAB.CHEW PO PRN (11:00)
[2021-11-12] MEDS ORDERED: LACTULOSE SYRUP 10GM/15ML (ENULOSE) 30ML UDC PO PRN (11:00)
[2021-11-12] MEDS ORDERED: FLEET ENEMA ADULT 1 EA BTL PR PRN (11:00)
[2021-11-12] MEDS ORDERED: ALPRAZolam 0.25 MG (XANAX) TAB PO PRN (11:00)
[2021-11-12] MEDS ORDERED: ONDANSETRON 4 MG (ZOFRAN) ORAL DISSOLVE TAB PO PRN (11:00)
[2021-11-12] MEDS ORDERED: guaiFENesin/CODEINE (ROBITUSSIN AC) 10ML UDC PO PRN (11:00)
[2021-11-12] MEDS ORDERED: BISACODYL 10 MG SUPP (DULCOLAX) PR PRN (11:00)
[2021-11-12 11:10] VITALS: BP 113/70
[2021-11-12] MEDS ORDERED: FAMO20TA5 PO (11:45)
[2021-11-12] MEDS ORDERED: SACC250C PO (11:45)
[2021-11-12] MEDS ORDERED: ATOR40TA70 PO (11:45)
[2021-11-12] MEDS ORDERED: CARV25TA PO (11:45)
[2021-11-12] MEDS ORDERED: TIMO5DRO5 OU (11:45)
[2021-11-12] MEDS ORDERED: ACET-2650 PO (11:45)
[2021-11-12] MEDS ORDERED: LATA2.5D19 OU (11:45)
[2021-11-12] MEDS ORDERED: DOCU100T2 PO (11:45)
[2021-11-12] MEDS ORDERED: LEVO125T6 PO (11:45)
[2021-11-12] MEDS ORDERED: NYST1000 PO (11:45)
[2021-11-12] MEDS ORDERED: OXYB5TAB13 PO (11:45)
[2021-11-12] MEDS ORDERED: CHOL10007 PO (11:45)
[2021-11-12] MEDS ORDERED: NS IV 1000 ML 1,000 ML IV SCH ×2 (12:30)
--- NOTE | 2021-11-12 12:45 | Physical Therapy Evaluation ---
PT Evaluation-General Medical Diagnosis Admission Date Nov 12, 2021 at 11:35 Medical Diagnosis: dehydration/fall/hypoglycemia Onset Date: Nov 11, 2021 Therapy Diagnosis Therapy Diagnosis: impaired mobility, strength, endurance Referral Physician: Nena Muniz DO Reason for Referral: Evaluation/Treatment Medical History Pertinent Medical History: Atrial Fib, DM, HTN, Hypothroidism, Renal Insufficiency Reviewed History: Yes Social History Home: Single Level Current Living Status: Alone Entry Into Home: Stairs With Railing PT Steps Into Home: 4 Prior Prior Level of Function SCALE: Activities may be completed with or without assistive devices. 8-Mecmahqzak-payqxtt completes the activity by him/herself with no assistance from a helper. 5-Set-up or Clean-up Assistance-helper sets up or cleans up; patient completes activity. [place] assists only prior to or following the activity. 4-Supervision or Touching Assistance-helper provides verbal cues and/or touching/steadying and/or contact guard assistance as patient completes activity. Assistance may be provided throughout the activity or intermittently. 3-Partial/Moderate Assistance-helper does LESS THAN HALF the effort. [place] lifts, holds or supports trunk or limbs, but provides less than half the effort. 2-Substantial/Maximal Assistance-helper does MORE THAN HALF the effort. [place] lifts or holds trunk or limbs and provides more than half the effort. 0-Uvpxolldr-adqjdd does ALL the effort. Patient does none of the effort to complete the activity. Or, the assistance of 2 or more helpers is required for the patient to complete the activity. If activity was not attempted, code reason: 7-Patient Refused. 9-Not Applicable-not attempted and the patient did not perform the activity before the current illness, exacerbation or injury. 10-Not Attempted due to Environmental Limitations-(lack of equipment, weather restraints, etc.). 88-Not Attempted due to Medical Conditions or Safety Concerns. Bed Mobility: 6 Transfers (B,C,W/C): 6 Gait: 6 Stairs: 6 Indoor Mobility (Ambulation): Independent Stairs: Independent Prior Devices Use: Walker PT Evaluation-Current Subjective Patient in bed pre tx, agrees to PT, has no complaints of pain. Patient states she needs to use the restroom, has incontinent BM along the way, has to change her brief after sitting on the toilet and clean up the floor (therapist does this). Pt/Family Goals to be independent at home Objective Patient Orientation: Person, Place, Situation Attachments: IV ROM/Strength ROM Lower Extremities WNL Strength Lower Extremities grossly 3+/5 BLE Sensory Hearing: Functional Sensation Right Lower Extremit: Intact Sensation Left Lower Extremity: Intact Transfers Roll Left & Right (QC): 6 Sit to Lying (QC): 6 Lying to Sitting/Side of Bed(Q: 6 Sit to Stand (QC): 3 Chair/Kac-ja-Ayzin Xfer(QC): 4 Toilet Transfer (QC): 4 Car Transfer (QC): 4 Patient performs rolling and supine <-> sit with independence, sit <-> stand min assist, transfers and car transfer CGA, cues for safety and positioning. Gait Does the Patient Walk?: Yes Mode of Locomotion: Walk Anticipated Mode of Locomotion: Walk Walk 10 feet (QC): 4 Walk 50 ft with 2 Turns(QC): 4 Walk 150 ft (QC): 88 Walking 10ft/uneven surface-QC: 4 Distance: 50' Gait Assistive Device: FWW Comments/Gait Description Patient ambulates 50' with a rolling walker with CGA (including 50' with at least 2 turns of 90 degrees and 10' over an uneven surface), patient had to stop ambulating due to fatigue and she says she is SOB, patient has O2 sat of 99% and HR was 148bpm, nurse notified. Wheelchair Training Wheel 50 ft with 2 turns (QC): 9 Wheel 150 ft (QC): 9 Stairs 1 Step (curb) (QC): 88 4 Steps (QC): 88 12 Steps (QC): 88 Balance Sitting Static: Normal Sitting Dynamic: Normal Standing Static: Fair Standing Dynamic: Fair Picking up an Object (QC): 88 Assessment/Needs Patient in recliner post tx with nurse call, has OT right after PT and she is in room to start. Rehab Potential: Fair PT Short Term Goals Short Term Goals Time Frame: Dec 03, 2021 Roll Left & Right: 6 Sit to lyin Lying to sitting on side of be: 6 Sit to stand: 4 Chair/vro-vq-kcbnt transfer: 4 Walk 10 feet: 4 Walk 50 feet with two turns: 4 Walk 150 feet: 4 PT Larry Car Operator Goals Larry Car Operator Goals PT Penitentiary Goals Time Frame: Dec 03, 2021 Roll Left & Right (QC): 6 Sit to Lying (QC): 6 Lying-Sitting on Side/Bed(QC): 6 Sit to Stand (QC): 6 Chair/Flj-ap-Ymiyr Xfer(QC): 6 Toilet Transfer (QC): 6 Car Transfer (QC): 6 Does the Patient Walk: Yes Walk 10 feet (QC): 6 Walk 50ft with 2 Turns (QC): 6 Walk 150 ft (QC): 6 Walking 10ft on Uneven Surface: 6 1 Step (curb) (QC): 4 (CGA) 4 Steps (QC): 4 (CGA) 12 Steps (QC): 88 Picking up an Object (QC): 6 Wheel 50 feet with 2 turns (QC: 9 Wheel 150 feet: 9 PT Plan Problem List Problem List: Activity Tolerance, Functional Strength, Safety, Balance, Gait, Transfer, Bed Mobility, ROM Treatment/Plan Treatment Plan: Continue Plan of Care Treatment Plan: Bed Mobility, Education, Functional Activity Maikel, Functional Strength, Group Therapy, Gait, Safety, Therapeutic Exercise, Transfers Treatment Duration: Dec 03, 2021 Frequency: At least 5 of 7 days/Wk (IRF) Estimated Hrs Per Day: 1.5 hours per day Patient and/or Family Agrees t: Yes Safety Risks/Education Patient Education: Gait Training, Transfer Techniques, Correct Positioning, Safety Issues Teaching Recipient: Patient Teaching Methods: Demonstration, Discussion Response to Teaching: Reinforcement Needed Discharge Recommendations Plan Patient will perform bed mobility and transfer training, balance and endurance training, functional strengthening, stair training, gait training, and education, to improve functional mobility and independence at home. Therapy Discharge Recommendati: Scheduled Assistance, Home & Family, Post Acute PT Time/GCodes Time In: 1110 Time Out: 1150 Total Billed Treatment Time: 40 Total Billed Treatment 1 visit EVM 10' FA 30' RANI DUMONT PT Nov 12, 2021 12:45
--- NOTE | 2021-11-12 12:55 | Occupational Therapy Eval ---
OT Evaluation-General/PLF Medical Diagnosis Admission Date Nov 12, 2021 at 11:35 Medical Diagnosis: dehydration Onset Date: Nov 11, 2021 Therapy Diagnosis Therapy Diagnosis: reduced adl status Precautions Precautions/Isolations: Airborne Isolation, Contact Isolation, Fall Prevention Referral Physician: Flavio Aceves Reason: Evaluation/Treatment Medical History Pertinent Medical History: Atrial Fib, DM, HTN, Hypothroidism, Renal Insufficiency Current History Pt presented to ER after falling over her own feet. She was recently discharged from [facility] (for an abscess and anterior ventral drain) and was only home for 1 day. Per patient, she lives alone in a single story home. She reports being indep with adls and iadls. She was using a 4WW at baseline. Reviewed History: Yes Social History Home: Single Level Current Living Status: Alone Entry Into Home: Stairs With Railing Steps Into Home: 4 ADL-Prior Level of Function SCALE: Activities may be completed with or without assistive devices. 3-Dbplpqxydd-vmzjuxr completes the activity by him/herself with no assistance from a helper. 5-Set-up or Clean-up Assistance-helper sets up or cleans up; patient completes activity. [place] assists only prior to or following the activity. 4-Supervision or Touching Assistance-helper provides verbal cues and/or touching/steadying and/or contact guard assistance as patient completes activity. Assistance may be provided throughout the activity or intermittently. 3-Partial/Moderate Assistance-helper does LESS THAN HALF the effort. [place] lifts, holds or supports trunk or limbs, but provides less than half the effort. 2-Substantial/Maximal Assistance-helper does MORE THAN HALF the effort. [place] lifts or holds trunk or limbs and provides more than half the effort. 2-Yvbforstk-websqb does ALL the effort. Patient does none of the effort to complete the activity. Or, the assistance of 2 or more helpers is required for the patient to complete the activity. If activity was not attempted, code reason: 7-Patient Refused. 9-Not Applicable-not attempted and the patient did not perform the activity before the current illness, exacerbation or injury. 10-Not Attempted due to Environmental Limitations-(lack of equipment, weather restraints, etc.). 88-Not Attempted due to Medical Conditions or Safety Concerns. Self Care: Independent Functional Cognition: Independent DME/Equipment: Bath Bench (built in seat ), Grab Bars, Tub/Shower Drive Self: Yes OT Current Status Subjective Pt denies pain but does report not feeling well. Low grade fever and resting HR in 140's. RN notified. Appearance Pt left sitting in recliner, all needs within reach. Mental Status/Objective Patient Orientation: Person, Confused, Place Attachments: IV Current Glasses/Contacts: Yes Hearing Aids: No Dentures/Partials: No Hand Dominance: Right Upper Extremity ROM WNL Upper Extremity Strength 3+/5 grossly ADL-Treatment Eating (QC): 4 Oral Hygiene (QC): 4 (per clinical judgment) Shower/Bathe Self (QC): 3 (per clinical judgment) Upper Body Dressing (QC): 10 (pt reports family will be bringing in clothing) Lower Body Dressing (QC): 2 (max a to thread BLE's into brief. Min-mod a to stand. Balance worsens when removing unilateral UE support. Mod a to pull up over hips.) On/Off Footwear (QC): 2 (max a due to impaired flexibility, poor endurance, strength, and increased SOB when bending.) Toileting Hygiene (QC): 1 (richmond catheter) Pt sitting in recliner at OT arrival. She reports not feeling well. Vitals taken. Low grade fever, resting HR in the 140's, Oxygen: 99%, and BP: 113/70. RN notified. HR increases into 150's after minimal activity. Significant time to return into 140's. Pt later tested for COVID and found to be positive. EKG ordered, results pending. Education OT Patient Education: Correct positioning, Energy conservation, Purpose of tx/functional activities, Safety issues, Transfer techniques Teaching Recipient: Patient Teaching Methods: Demonstration, Discussion Response to Teaching: Verbalize Understanding, Return Demonstration, Reinforcement Needed OT Short Term Goals Short Term Goals Time Frame: Nov 19, 2021 Eatin Oral hygiene: 5 Toileting hygiene: 3 Shower/bathe self: 3 Upper body dressin Lower body dressin Putting on/taking off footwear: 3 OT Alf Goals Alf Goals Time Frame: Nov 27, 2021 Eating (QC): 6 Oral Hygiene (QC): 6 Toileting Hygiene (QC): 6 Shower/Bathe Self (QC): 5 Upper Body Dressing (QC): 5 Lower Body Dressing (QC): 5 On/Off Footwear (QC): 5 1=Demonstrate adherence to instructed precautions during ADL tasks. 2=Patient will verbalize/demonstrate understanding of assistive devices/modifications for ADL. 3=Patient will improve strength/tolerance for activity to enable patient to perform ADL's. OT Education/Plan Problem List/Assessment Assessment: Decreased Activ Tolerance, Decreased Safety Aware, Decreased UE Strength, Impaired Cognition, Impaired Funct Balance, Impaired I ADL's, Impaired Self-Care Skills Discharge Recommendations Plan/Recommendations: Continue POC Therapy Discharge Recommendati: Other, See Comments (continue to asses ) Treatment Plan/Plan of Care Treatment,Training & Education: Yes Patient would benefit from OT for education, treatment and training to promote independence in ADL's, mobility, safety and/or upper extremity function for ADL's. Plan of Care: ADL Retraining, Cognitive Retraining, Concurrent Therapy, Functional Mobility, Group Exercise/Act as Ind, UE Funct Exercise/Act Treatment Duration: Nov 27, 2021 Frequency: Modified Program (IRF) (12/11) Estimated Hrs Per Day: 1.5 hours per day (75-90 min/day ) Agreement: Yes Rehab Potential: Fair Time/GCodes Start Time: 11:50 Stop Time: 12:15 Total Time Billed (hr/min): 25 Billed Treatment Time 1st visit EVM (10 min) ADL (15 min) Neli De Paz OT Nov 12, 2021 12:54
--- NOTE | 2021-11-12 13:05 | Diagnostic Imaging Report ---
INDICATION: 76-year-old female, fever. Recent trauma, fall with back pain. TECHNIQUE: Single view chest 12:38 PM. CORRELATION STUDY: None FINDINGS: The heart size, mediastinal configuration and pulmonary vascularity are within normal limits. The lungs are clear with no consolidating infiltrate. There is no significant effusion or pneumothorax. IMPRESSION: 1. Negative appearing portable chest. Dictated by: Dictated on workstation # [id number]
[2021-11-12 13:29] LABS: BASOPHILS % (AUTO) 1 % (0-10); EOSINOPHILS % (AUTO) 0 % (0-10); HEMATOCRIT 29 % (35-52); HEMOGLOBIN 8.9 g/dL (11.5-16.0); LYMPHOCYTES # (AUTO) 0.7 10^3/uL (1.0-4.0); LYMPHOCYTES % (AUTO) 14 % (12-44); MEAN CORPUSCULAR HEMOGLOBIN 29 pg (25-34); MEAN CORPUSCULAR HGB CONC 31 g/dL (32-36); MEAN CORPUSCULAR VOLUME 94 fL (80-99); MEAN PLATELET VOLUME 10.2 fL (9.0-12.2); MONOCYTES # (AUTO) 0.3 10^3/uL (0.0-1.0); MONOCYTES % (AUTO) 7 % (0-12); NEUTROPHILS # (AUTO) 3.6 10^3/uL (1.8-7.8); NEUTROPHILS % (AUTO) 77 % (42-75); PLATELET COUNT 163 10^3/uL (130-400); WHITE BLOOD COUNT 4.6 10^3/uL (4.3-11.0)
--- NOTE | 2021-11-12 13:35 | ST Cognitive Linguistic Eval ---
Speech Evaluation-General Medical Diagnosis Dehydration Onset Date: Nov 11, 2021 Therapy Diagnosis Therapy Diagnosis: Impaired Neurocognitive Function Precautions Precautions: Fall Precautions/Isolations: Fall Prevention, Standard Precautions Referral Referring Physician: Dr. Muniz Reason for Referral: Evaluation/Treatment Medical History Pertinent Medical History: Atrial Fib, DM, HTN, Hypothroidism, Renal Insufficiency Current History The patient is a 76 year-old female with a past medical history of atrial fibrillation, DM, hypothyroidism, and renal insufficiency, who presented to [facility] after "falling over her own feet." The patient does have an extensive bowel medical history. Reviewed History: Yes Social History Current Living Status: Alone Speech PLF-Current Status Prior Level of Function The patient reported increased confusion, intermittently. The patient denied challenges with her speech, language, or swallowing. Subjective The patient was seated upright in her recliner, awake and alert upon entrance to her room by the clinician. The patient greeted the clinician appropriately and was agreeable to participation in the cognitive linguistic assessment. Language Eval: Auditory Comprehends Simple Yes/No Ques: Functional Indent/Objects Multiple Stearns: Functional Ident/Pics in Multiple Stearns: Functional Follows 1-Step Commands: Functional Follows General Conversations: Functional Language Eval: Verbal Language Completes Spontaneous Greeting: Functional Produces Auto, Serial Info: Functional Imitates Simple Words/Phrases: Functional Word Finding: Mild Requests Basic Needs: Functional States Basic Personal Info: Functional Cognitive Patient Orientation The patient was independently oriented to self, location, month, day of the week, date, and year. Objective Cognitive Domain Attention: Mild Memory: Mild Problem Solving: Mild Composite Severity Rating: Mild Objective Formal/Standardized Tests [facility] Mental Status Exam (UMS) Results The patient initiated the UMS, however, due to time constraints the assessment was unable to be completed. At this time, the patient has displayed an error with simple subtraction, an error with generative naming, and an error with digi t repetition in reverse. Oral Motor/Speech Production The patient does not display dysarthria or apraxia of speech at this time. The patient is 100% intelligible in known and unknown contexts. The patient does display a weak, breathy vocal quality with reduced intensity levels. Impression Due to the patient's self report and results of the partially completed evaluation, the clinician suspects mild neurocognitive impairments. Speech Patient Assess Expression of Ideas/Wants: Exhibits (3) Understanding Verbal Content: Usually Understands (3) Brief Interview-Mental Status: Yes Repetition of Three Words: Three (3) Temporal Orientation: Year: Correct (3) Temporal Orientation: Month: Accurate within 5 days(2) Temporal Orientation: Day: Correct (1) Recall : Wear to say "Sock": Yes, no cue required (2) Recall : Color: Yes, after cueing (1) Recall : Bed: Yes,after cueing (1) Memory/Recall Ability: Current season, That he or she is in a hsp/hsp unit Speech Short Term Goals Short Term Goals Short Term Goals 1. The patient will demonstrate 80% accuracy with memory exercises, independently. Time Frame-STG: Five Days. Speech Mcfp Goals Mcfp Goals 1. The patient will demonstrate improved cognitive linguistic skills for safe discharge to the least restrictive environment. Time Frame: Two Weeks. Speech-Plan Treatment Plan Speech Therapy Treatment Plan: Continue Plan of Care Treatment Duration: Nov 12, 2021 Frequency: Modified Program (IRF) (Four to five times per day.) Estimated Hrs Per Day: .5 hour per day Rehab Potential: Fair Safety Risks/Education Teaching Recipient: Patient Teaching Methods: Discussion Response to Teaching: Verbalize Understanding Education Topics Provided: Results, Plan of Care, Skilled Speech Pathology Time Speech Therapy Time In: 12:15 Speech Therapy Time Out: 12:45 Total Billed Time: 30 Billed Treatment Time 1, FÉLIX DIALLO [address] ST Nov 12, 2021 13:35
[2021-11-12 13:46] LABS: BILIRUBIN,URINE NEGATIVE (NEGATIVE); CLARITY,URINE CLEAR; COLOR,URINE YELLOW; GLUCOSE, URINE (UA) NEGATIVE (NEGATIVE); KETONES,URINE NEGATIVE (NEGATIVE); LEUKOCYTE ESTERASE ,URINE NEGATIVE (NEGATIVE); NITRITE,URINE NEGATIVE (NEGATIVE); PROTEIN,URINE NEGATIVE (NEGATIVE)
[2021-11-12 13:48] LABS: ALBUMIN 2.4 GM/DL (3.2-4.5); POTASSIUM 3.2 MMOL/L (3.6-5.0)
[2021-11-12 13:50] LABS: CALCIUM 6.7 MG/DL (8.5-10.1)
[2021-11-12 13:51] LABS: TOTAL PROTEIN 5.4 GM/DL (6.4-8.2)
[2021-11-12 13:53] LABS: BILIRUBIN,TOTAL 0.4 MG/DL (0.1-1.0)
[2021-11-12 13:54] LABS: CREATININE SERUM 0.86 MG/DL (0.60-1.30)
[2021-11-12 13:54] LABS: BACTERIA,URINE NEGATIVE /HPF; GRANULAR CASTS,URINE 0-2 /LPF; HYALINE CASTS, URINE 0-2 /LPF; WBC,URINE RARE /HPF
[2021-11-12] MEDS ORDERED: POTASSIUM CL 10MEQ/50ML IVPB 50 ML IV SCH (14:00)
[2021-11-12] MEDS ORDERED: MAGNESIUM 1 GM/100 ML IVPB 100 ML IV ONE (14:00)
[2021-11-12 16:30] VITALS: BP 123/82
--- NOTE | 2021-11-12 16:41 | Discharge Summary ---
Diagnosis/Chief Complaint Date of Admission Nov 12, 2021 at 11:35 Date of Discharge Discharge Diagnosis COVID requiring transfer to ICU Discharge Summary Discharge Physical Examination Allergies: Coded Allergies: Penicillins (Verified Allergy, Unknown, 08/20/20) raspberry (Verified Allergy, Unknown, 08/20/20) Vitals & I&Os Vital Signs Date Time Temp Pulse Resp B/P (MAP) Pulse Ox O2 Delivery O2 Flow Rate FiO2 11/12/21 18:23 38.9 132 22 123/82 99 Room Air Hospital Course Was the Problem List Reviewed?: Yes 2 hours course after admitted and noted to have new fever and I ordered septic w/u and COVID swab was positive with tachy 142 so moved to ICU Labs (last 24 hrs) Laboratory Tests 11/12/21 12:54: Influenza Type A (RT-PCR) Not Detected, Influenza Type B (RT-PCR) Not Detected, SARS-CoV-2 RNA (RT-PCR) DetectedH 11/12/21 13:12: White Blood Count 4.6, Red Blood Count 3.06L, Hemoglobin 8.9#L, Hematocrit 29L, Mean Corpuscular Volume 94, Mean Corpuscular Hemoglobin 29, Mean Corpuscular Hemoglobin Concent 31L, Red Cell Distribution Width 19.1H, Platelet Count 163, Mean Platelet Volume 10.2, Immature Granulocyte % (Auto) 0, Neutrophils (%) (Auto) 77H, Lymphocytes (%) (Auto) 14, Monocytes (%) (Auto) 7, Eosinophils (%) (Auto) 0, Basophils (%) (Auto) 1, Neutrophils # (Auto) 3.6, Lymphocytes # (Auto) 0.7L, Monocytes # (Auto) 0.3, Eosinophils # (Auto) 0.0, Basophils # (Auto) 0.0, Immature Granulocyte # (Auto) 0.0, Lactic Acid Level 2.81*H 11/12/21 13:24: Sodium Level 139, Potassium Level 3.2L, Chloride Level 111H, Carbon Dioxide Level 14L, Anion Gap 14, Blood Urea Nitrogen 6L, Creatinine 0.86, Estimat Glomerular Filtration Rate 70, BUN/Creatinine Ratio 7, Glucose Level 153H, Calcium Level 6.7L, Corrected Calcium 8.0L, Total Bilirubin 0.4, Aspartate Amino Transf (AST/SGOT) 93H, Alanine Aminotransferase (ALT/SGPT) 40, Alkaline Awa sphatase 44, Total Protein 5.4L, Albumin 2.4L, Procalcitonin 0.24H 11/12/21 13:30: Urine Color YELLOW, Urine Clarity CLEAR, Urine pH 6.0, Urine Specific [place] 1.010L, Urine Protein NEGATIVE, Urine Glucose (UA) NEGATIVE, Urine Ketones NEGATIVE, Urine Nitrite NEGATIVE, Urine Bilirubin NEGATIVE, Urine Urobilinogen 0.2, Urine Leukocyte Esterase NEGATIVE, Urine RBC (Auto) NEGATIVE, Urine RBC NONE, Urine WBC RARE, Urine Crystals NONE, Urine Bacteria NEGATIVE, Urine Casts PRESENT, Urine Hyaline Casts 0-2H, Urine Granular Casts 0-2H, Urine Mucus NEGATIVE, Urine Culture Indicated NO 11/12/21 15:25: Lactic Acid Level 3.48*H 11/12/21 15:40: Glucometer 220H Pending Labs Laboratory Tests 11/12/21 12:54: Influenza Type A (RT-PCR) Not Detected, Influenza Type B (RT-PCR) Not Detected, SARS-CoV-2 RNA (RT-PCR) Detected 11/12/21 13:12: White Blood Count 4.6, Red Blood Count 3.06, Hemoglobin 8.9, Hematocrit 29, Mean Corpuscular Volume 94, Mean Corpuscular Hemoglobin 29, Mean Corpuscular Hemoglobin Concent 31, Red Cell Distribution Width 19.1, Platelet Count 163, Mean Platelet Volume 10.2, Immature Granulocyte % (Auto) 0, Neutrophils (%) (Auto) 77, Lymphocytes (%) (Auto) 14, Monocytes (%) (Auto) 7, Eosinophils (%) (Auto) 0, Basophils (%) (Auto) 1, Neutrophils # (Auto) 3.6, Lymphocytes # (Auto) 0.7, Monocytes # (Auto) 0.3, Eosinophils # (Auto) 0.0, Basophils # (Auto) 0.0, Immature Granulocyte # (Auto) 0.0, Lactic Acid Level 2.81 11/12/21 13:24: Sodium Level 139, Potassium Level 3.2, Chloride Level 111, Carbon Dioxide Level 14, Anion Gap 14, Blood Urea Nitrogen 6, Creatinine 0.86, Estimat Glomerular Filtration Rate 70, BUN/Creatinine Ratio 7, Glucose Level 153, Calcium Level 6.7, Corrected Calcium 8.0, Total Bilirubin 0.4, Aspartate Amino Transf (AST/SGOT) 93, Alanine Aminotransferase (ALT/SGPT) 40, Alkaline Phosphatase 44, Total Protein 5.4, Albumin 2.4, Procalcitonin 0.24 11/12/21 13:30: Urine Color YELLOW, Urine Clarity CLEAR, Urine pH 6.0, Urine Specific [place] 1.010, Urine Protein NEGATIVE, Urine Glucose (UA) NEGATIVE, Urine Ketones NEGATIVE, Urine Nitrite NEGATIVE, Urine Bilirubin NEGATIVE, Urine Urobilinogen 0.2, Urine Leukocyte Esterase NEGATIVE, Urine RBC (Auto) NEGATIVE, Urine RBC NONE, Urine WBC RARE, Urine Crystals NONE, Urine Bacteria NEGATIVE, Urine Casts PRESENT, Urine Hyaline Casts 0-2, Urine Granular Casts 0-2, Urine Mucus NEGATIVE, Urine Culture Indicated NO 11/12/21 15:25: Lactic Acid Level 3.48 11/12/21 15:40: Glucometer 220 Discharge Home Medications: Active Scripts Active Reported Tylenol Arthritis (Acetaminophen) 650 Mg Tablet.er 650 Mg PO Q6H PRN Vitamin D3 (Cholecalciferol (Vitamin D3)) 25 Mcg (1000 Unit) Capsule 25 Mcg PO DAILY Timolol Maleate 0.5% (Timolol Maleate) 0.5 % Drops 1 Drop OU HS Florastor (Saccharomyces Boulardii) 250 Mg Capsule 250 Mg PO DAILY Oxybutynin Chloride 5 Mg Tablet 5 Mg PO BID Nystatin 100,000 Unit/Ml Oral.susp 5 Ml PO QID SWISH AND SWALLOW Levothyroxine Sodium 125 Mcg Tablet 125 Mcg PO DAILY Xalatan (Latanoprost) 0.005 % Drops 1 Drop OU HS Famotidine 20 Mg Tablet 20 Mg PO DAILY Docusate Sodium 100 Mg Tablet 100 Mg PO BID HOLD FOR DIARRHEA Carvedilol 25 Mg Tablet 25 Mg PO BID HOLD FOR SBP LESS THAN 100 Atorvastatin Calcium 40 Mg Tablet 40 Mg PO 1700 Iron (Ferrous Sulfate) 325 Mg Tablet 325 Mg PO BID Leflunomide 20 Mg Tablet 20 Mg PO Q48H Amitriptyline HCl 100 Mg Tablet 100 Mg PO HS Fenofibrate 160 Mg Tablet 160 Mg PO HS Cetirizine HCl 10 Mg Tablet 10 Mg PO DAILY Instructions to patient/family Please see electronic discharge instructions given to patient. LORENZO MIMS DO Nov 12, 2021 16:41
[2021-11-12 18:23] VITALS: BP 123/82
[2021-11-12] MEDS ORDERED: SENNA W/DOCUSATE (SENOKOT S) TABLET PO SCH (21:00)
[2021-11-12] MEDS ORDERED: polyethylene glycoL POWDER 17 GM (MIRALAX) PACK PO SCH (21:00)
[2021-11-12] MEDS ORDERED: DOCUSATE SODIUM 100 MG (COLACE) CAP PO SCH (21:00)
--- NOTE | 2021-11-15 12:27 | Therapy Team Discharge Summary ---
Therapy Discharge Summary Discharge Recommendations Date of Discharge Nov 12, 2021 at 17:30 Physical Therapy Roll Left to Right (QC): 6 Sit to Lying (QC): 6 Lying to Sitting/Side of Bed(Q: 6 Sit to Stand (QC): 3 Chair/Knn-en-Anieu Xfer(QC): 4 Toilet Transfer (QC): 4 Car Transfer (QC): 4 Does the Patient Walk: Yes Mode of Locomotion: Walk Anticipated Mode of Locomotion: Walk Walk 10 feet (QC): 4 Walk 50 ft with 2 Turns(QC): 4 Walk 150 ft (QC): 88 Walking 10ft on uneven surface: 4 Distance: 50' Gait Assistive Device: FWW Wheel 50 ft with 2 turns (QC): 9 Wheel 150 ft (QC): 9 1 Step (curb) (QC): 88 4 Steps (QC): 88 12 Steps (QC): 88 Balance Sitting Static: Normal Balance Sitting Dynamic: Normal Balance-Standing Static: Fair Picking up an Object (QC): 88 Occupational Therapy Pt admitted to ARU with dehydration. At time of evaluation she was dependent for toileting, max a for footwear and lower body dressing, mod a for bathing, and sba for oral care and eating. Pt did not meet any of her terminal carman goals due to decline in medical status and transfer to higher level of care (on day 1 of rehab stay). Pt will be discharged from OT at this time. Decreased Activ Tolerance, Decreased Safety Aware, Decreased UE Strength, Impaired Cognition, Impaired Funct Balance, Impaired I ADL's, Impaired Self-Care Skills Eating (QC): 4 Oral Hygiene (QC): 4 (per clinical judgment) Shower/Bathe Self (QC): 3 (per clinical judgment) Upper Body Dressing (QC): 10 (pt reports family will be bringing in clothing) Lower Body Dressing (QC): 2 (max a to thread BLE's into brief. Min-mod a to stand. Balance worsens when removing unilateral UE support. Mod a to pull up over hips.) On/Off Footwear (QC): 2 (max a due to impaired flexibility, poor endurance, strength, and increased SOB when bending.) Toileting Hygiene (QC): 1 (richmond catheter) PT Mcfp Goals Mcfp Goals PT Netting Inspector Goals Time Frame: Dec 03, 2021 Roll Left to Right (QC): 6 Sit to Lying (QC): 6 Lying-Sitting on Side/Bed(QC): 6 Sit to Stand (QC): 6 Chair/Jdt-ou-Tiref Xfer(QC): 6 Car Transfer (QC): 6 Does the Patient Walk: Yes Walk 10 feet (QC): 6 Walk 10ft-Uneven Surface(QC): 6 Walk 50ft with 2 Turns (QC): 6 Walk 150 ft (QC): 6 Wheel 50 feet with 2 turns (QC: 9 1 Step (curb) (QC): 4 (CGA) 4 Steps (QC): 4 (CGA) 12 Steps (QC): 88 Picking up an Object (QC): 6 OT Netting Inspector Goals Netting Inspector Goals Time Frame: Nov 27, 2021 Eating (QC): 6 Oral Hygiene (QC): 6 Shower/Bathe Self (QC): 5 Upper Body Dressing (QC): 5 Lower Body Dressing (QC): 5 On/Off Footwear (QC): 5 Toileting Hygiene (QC): 6 Toilet/Commode Transfer (QC): 6 1=Demonstrate adherence to instructed precautions during ADL tasks. 2=Patient will verbalize/demonstrate understanding of assistive devices/modifications for ADL. 3=Patient will improve strength/tolerance for activity to enable patient to perform ADL's. Speech Netting Inspector Goals Mcfp Goals 1. The patient will demonstrate improved cognitive linguistic skills for safe discharge to the least restrictive environment. Time Frame: Two Weeks. Neli De Paz OT Nov 15, 2021 12:27
--- NOTE | 2021-11-15 15:36 | Therapy Team Discharge Summary ---
Therapy Discharge Summary Discharge Recommendations Date of Discharge Nov 12, 2021 at 17:30 Physical Therapy Patient came to rehab with dehydration/fall/hypoglycemia. Upon evaluation patient performs rolling and supine <-> sit with independence, sit <-> stand min assist, transfers and car transfer CGA, ambulates 50' with a rolling walker with CGA (including 50' with at least 2 turns of 90 degrees and 10' over an uneven surface). Patient was discharged from rehab that same day due to medical complications. Patient will be discharged from PT at this time. Roll Left to Right (QC): 6 Sit to Lying (QC): 6 Lying to Sitting/Side of Bed(Q: 6 Sit to Stand (QC): 3 Chair/Flt-fv-Bnltb Xfer(QC): 4 Toilet Transfer (QC): 4 Car Transfer (QC): 4 Does the Patient Walk: Yes Mode of Locomotion: Walk Anticipated Mode of Locomotion: Walk Walk 10 feet (QC): 4 Walk 50 ft with 2 Turns(QC): 4 Walk 150 ft (QC): 88 Walking 10ft on uneven surface: 4 Distance: 50' Gait Assistive Device: FWW Wheel 50 ft with 2 turns (QC): 9 Wheel 150 ft (QC): 9 1 Step (curb) (QC): 88 4 Steps (QC): 88 12 Steps (QC): 88 Balance Sitting Static: Normal Balance Sitting Dynamic: Normal Balance-Standing Static: Fair Picking up an Object (QC): 88 Occupational Therapy Decreased Activ Tolerance, Decreased Safety Aware, Decreased UE Strength, Impaired Cognition, Impaired Funct Balance, Impaired I ADL's, Impaired Self-Care Skills Eating (QC): 4 Oral Hygiene (QC): 4 (per clinical judgment) Shower/Bathe Self (QC): 3 (per clinical judgment) Upper Body Dressing (QC): 10 (pt reports family will be bringing in clothing) Lower Body Dressing (QC): 2 (max a to thread BLE's into brief. Min-mod a to stand. Balance worsens when removing unilateral UE support. Mod a to pull up over hips.) On/Off Footwear (QC): 2 (max a due to impaired flexibility, poor endurance, strength, and increased SOB when bending.) Toileting Hygiene (QC): 1 (richmond catheter) PT Senior Living Goals Senior Living Goals PT Music Specialist Goals Time Frame: Dec 03, 2021 Roll Left to Right (QC): 6 Sit to Lying (QC): 6 Lying-Sitting on Side/Bed(QC): 6 Sit to Stand (QC): 6 Chair/Iqh-rm-Hdmoq Xfer(QC): 6 Car Transfer (QC): 6 Does the Patient Walk: Yes Walk 10 feet (QC): 6 Walk 10ft-Uneven Surface(QC): 6 Walk 50ft with 2 Turns (QC): 6 Walk 150 ft (QC): 6 Wheel 50 feet with 2 turns (QC: 9 1 Step (curb) (QC): 4 (CGA) 4 Steps (QC): 4 (CGA) 12 Steps (QC): 88 Picking up an Object (QC): 6 OT Music Specialist Goals Music Specialist Goals Time Frame: Nov 27, 2021 Eating (QC): 6 Oral Hygiene (QC): 6 Shower/Bathe Self (QC): 5 Upper Body Dressing (QC): 5 Lower Body Dressing (QC): 5 On/Off Footwear (QC): 5 Toileting Hygiene (QC): 6 Toilet/Commode Transfer (QC): 6 1=Demonstrate adherence to instructed precautions during ADL tasks. 2=Patient will verbalize/demonstrate understanding of assistive devices/modifi cations for ADL. 3=Patient will improve strength/tolerance for activity to enable patient to perform ADL's. Speech Music Specialist Goals Senior Living Goals 1. The patient will demonstrate improved cognitive linguistic skills for safe discharge to the least restrictive environment. Time Frame: Two Weeks. RANI DUMONT PT Nov 15, 2021 15:36
--- NOTE | 2021-11-16 13:31 | Physician Query Clarification ---
PQ-Intro New Diagnosis Admission/Discharge Admission Date: Nov 12, 2021 at 11:35 Discharge Date: Nov 12, 2021 at 17:30 Dr. Muniz, The medical record reflects the following clinical scenario: History/Risk Factors: Debility, fall Clinical Findings: strength lower extremities - 3+/5 BLE, fatigue Treatment: IP Rehab Question: What condition best reflects the above clinical scenario? What is the condition that led to Rehab admission? Please document a response in the Progress Noter or Discharge Summary. 1. Rhabdomyolosis 2. Dehydration 3. Other, with explanation of the clinical findings. 4. Clinically undetermined, no explanation for the clinical findings. PHYSICIAN RESPONSE What condition reflects above: Other, explanation/clinical finding (myopathy) In responding to this query, please exercise your independent professional judgment. The purpose of this communication is to more accurately reflect the complexity of your patients condition. The fact that a question is asked does not imply that any particular answer is desired or expected. Thank you for your timely response to this clarification. Requestors name: Nathaniel THIS PHYSICIAN QUERY FORM IS A PERMANENT PART OF THE MEDICAL RECORD NATHANIEL CHAVIS Nov 16, 2021 13:31 LORENZO MUNIZ DO Nov 16, 2021 19:49
--- NOTE | 2021-11-17 11:17 | Therapy Team Discharge Summary ---
Therapy Discharge Summary Discharge Recommendations Date of Discharge Nov 12, 2021 at 17:30 Physical Therapy Roll Left to Right (QC): 6 Sit to Lying (QC): 6 Lying to Sitting/Side of Bed(Q: 6 Sit to Stand (QC): 3 Chair/Ime-hc-Btgop Xfer(QC): 4 Toilet Transfer (QC): 4 Car Transfer (QC): 4 Does the Patient Walk: Yes Mode of Locomotion: Walk Anticipated Mode of Locomotion: Walk Walk 10 feet (QC): 4 Walk 50 ft with 2 Turns(QC): 4 Walk 150 ft (QC): 88 Walking 10ft on uneven surface: 4 Distance: 50' Gait Assistive Device: FWW Wheel 50 ft with 2 turns (QC): 9 Wheel 150 ft (QC): 9 1 Step (curb) (QC): 88 4 Steps (QC): 88 12 Steps (QC): 88 Balance Sitting Static: Normal Balance Sitting Dynamic: Normal Balance-Standing Static: Fair Picking up an Object (QC): 88 Occupational Therapy Decreased Activ Tolerance, Decreased Safety Aware, Decreased UE Strength, Impaired Cognition, Impaired Funct Balance, Impaired I ADL's, Impaired Self-Care Skills Eating (QC): 4 Oral Hygiene (QC): 4 (per clinical judgment) Shower/Bathe Self (QC): 3 (per clinical judgment) Upper Body Dressing (QC): 10 (pt reports family will be bringing in clothing) Lower Body Dressing (QC): 2 (max a to thread BLE's into brief. Min-mod a to stand. Balance worsens when removing unilateral UE support. Mod a to pull up over hips.) On/Off Footwear (QC): 2 (max a due to impaired flexibility, poor endurance, strength, and increased SOB when bending.) Toileting Hygiene (QC): 1 (richmond catheter) Speech-Language Pathology The patient was discharged to acute hospital services prior to the initiation of skilled speech pathology. Speech pathology will discharge the patient at this time. PT Skilled Nursing Goals Cistern Room Operator Goals PT Skilled Nursing Goals Time Frame: Dec 03, 2021 Roll Left to Right (QC): 6 Sit to Lying (QC): 6 Lying-Sitting on Side/Bed(QC): 6 Sit to Stand (QC): 6 Chair/Gkr-dv-Zgaoe Xfer(QC): 6 Car Transfer (QC): 6 Does the Patient Walk: Yes Walk 10 feet (QC): 6 Walk 10ft-Uneven Surface(QC): 6 Walk 50ft with 2 Turns (QC): 6 Walk 150 ft (QC): 6 Wheel 50 feet with 2 turns (QC: 9 1 Step (curb) (QC): 4 (CGA) 4 Steps (QC): 4 (CGA) 12 Steps (QC): 88 Picking up an Object (QC): 6 OT Cistern Room Operator Goals Cistern Room Operator Goals Time Frame: Nov 27, 2021 Eating (QC): 6 Oral Hygiene (QC): 6 Shower/Bathe Self (QC): 5 Upper Body Dressing (QC): 5 Lower Body Dressing (QC): 5 On/Off Footwear (QC): 5 Toileting Hygiene (QC): 6 Toilet/Commode Transfer (QC): 6 1=Demonstrate adherence to instructed precautions during ADL tasks. 2=Patient will verbalize/demonstrate understanding of assistive devices/m odifications for ADL. 3=Patient will improve strength/tolerance for activity to enable patient to perform ADL's. Speech Skilled Nursing Goals Cistern Room Operator Goals 1. The patient will demonstrate improved cognitive linguistic skills for safe discharge to the least restrictive environment. Time Frame: Two Weeks. CHAIM ELLIS Nov 17, 2021 11:17
== END 2021-11-12 17:30 | disposition short-term general hospital (02) | DRG 947 ==
PROVIDERS: ADMIT Internal Medicine; ATTEND Internal Medicine
PROC: 8E0ZXY6 Isolation (ICD-10-PCS; principal; 2021-11-12)
DX: R53.81 Other malaise (principal); U07.1 COVID-19; I10 Essential (primary) hypertension; E78.00 Pure hypercholesterolemia, unspecified; I48.91 Unspecified atrial fibrillation; K21.9 Gastro-esophageal reflux disease without esophagitis; M06.9 Rheumatoid arthritis, unspecified; M19.91 Primary osteoarthritis, unspecified site; E03.9 Hypothyroidism, unspecified; E11.9 Type 2 diabetes mellitus without complications; Z87.891 Personal history of nicotine dependence; Z85.43 Personal history of malignant neoplasm of ovary; Z90.5 Acquired absence of kidney; Z88.0 Allergy status to penicillin; Z82.61 Family history of arthritis; Z83.3 Family history of diabetes mellitus; Z82.49 Family history of ischemic heart disease and other diseases of the circulatory system
CPT/HCPCS: 36415; 71045; 80053; 81000; 82947; 83605; 84145; 85025; 87040; 87636; 93005

== ENCOUNTER 2021-11-12 16:45 | Inpatient (IN) | payer MEDICARE ==
[~2021-11-12] VITALS: Ht 157.5 cm; Wt 48.7 kg
[~2021-11-12 16:45] MED LIST changes: +ACET-2650 PO; +CARV25TA PO; +CHOL10007 PO; +DOCU100T2 PO; +FAMO20TA5 PO; +LATA2.5D19 OU; +LEVO125T6 PO; +NYST1000 PO; +SACC250C PO; +TIMO5DRO5 OU
[2021-11-12] MEDS ORDERED: morphine INJ 4 MG/ML 1 ML (VIAL/SYRINGE) IV PRN (17:15)
[2021-11-12] MEDS ORDERED: diphenhydrAMINE 50 MG/ML INJ (BENADRYL) IVP PRN (17:15)
[2021-11-12] MEDS ORDERED: LACTULOSE SYRUP 10GM/15ML (ENULOSE) 30ML UDC PO PRN (17:15)
[2021-11-12] MEDS ORDERED: MILK OF MAGNESIA 400 MG/5 ML 30 ML UDC PO PRN (17:15)
[2021-11-12] MEDS ORDERED: diphenhydrAMINE 25 MG TAB (BENADRYL) PO PRN (17:15)
[2021-11-12] MEDS ORDERED: ACETAMINOPHEN 325 MG TABLET PO PRN (17:15)
[2021-11-12] MEDS ORDERED: ONDANSETRON 4 MG (ZOFRAN) ORAL DISSOLVE TAB PO PRN (17:15)
[2021-11-12] MEDS ORDERED: polyethylene glycoL POWDER 17 GM (MIRALAX) PACK PO PRN (17:15)
[2021-11-12] MEDS ORDERED: ONDANSETRON 4 MG/2 ML (SDV) Z0FRAN IV PRN (17:15)
[2021-11-12] MEDS ORDERED: ANTACID SUSP 30 ML UDC (MYLANTA) PO PRN (17:15)
[2021-11-12] MEDS ORDERED: CALCIUM CARBONATE 500 MG (TUMS) TAB.CHEW PO PRN (17:15)
[2021-11-12] MEDS ORDERED: BISACODYL 10 MG SUPP (DULCOLAX) PR PRN (17:15)
--- NOTE | 2021-11-12 17:22 | History & Physical ---
History of Present Illness HPI/Chief Complaint CC: Fever with tachycardia of 140 HPI: This is a very complex 76yoWF who had been admitted night due to fall and found down at home for 18 hours after HH nurse found her (she had no phone access and her life alert had been turned off) following a 3 week hospital course at [place] (10/20/2021-11/11/2021) due to [facility] stay on 10/14/21 due to confusion from sepsis from pelvic abscess required drainage by IR due to ileostomy reversal leak and subsequent abscess formation. 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 The recent ileostomy reversal was performed by Dr Nieves October 2020. She was admitted for observation and IVF on med-surg and promptly moved to IRF due to weakness and need to strengthen prior to DC but shortly after she arrived in IRF she was found to have a fever of 38.6 and tachycardia of 142 and sepsis w/u initiated and found to have COVID infection with lactic acidosis not due to sepsis so the decision was made to move to ICU. She is vaccinated and boosted. Source: patient Date Seen 11/12/21 Time Seen by a Provider: 18:00 Attending Physician Khoa Corbett PCP Admitting Physician: Nena Mims DO Attending Physician: Nena Mims DO Referring Physician Date of Admission Nov 12, 2021 at 16:45 Home Medications & Allergies Home Medications Reviewed patient Home Medication Reconciliation performed by pharmacy medication reconciliations medtronics technician and/or nursing. Patients Allergies have been reviewed. Allergies Allergies Coded Allergies Penicillins (Verified Allergy, Unknown, 08/20/20) raspberry (Verified Allergy, Unknown, 08/20/20) Past Markvyo-Lotded-Gjcaok Hx Past Med/Social Hx: Reviewed Nursing Past Med/Soc Hx, Reviewed and Corrections made Patient Social History Marrital Status: single Employed/Student: retired Alcohol Use: Denies Use Smoking Status: Never a Smoker Former Smoker, Quit: Jul 28, 1984 Type Used: Cigarettes 2nd Hand Smoke Exposure: No Recent Hopitalizations: No Immunizations Up To Date Date of Pneumonia Vaccine: Feb 06, 2020 Date of Influenza Vaccine: Feb 05, 2020 Seasonal Allergies Seasonal Allergies: No Past Medical History Surgeries: Abdominal, Bowel Surgery, Cardiac, Gallbladder, Hysterectomy, Nephrectomy, Oophorectomy, Tonsillectomy Currently Using CPAP: No Cardiac: Atrial Fibrillation, High Cholesterol, Hypertension Reproductive: Yes (OVARIAN CANCER) Sexually Transmitted Disease: No HIV/AIDS: No Hysterectomy, Menopausal Genitourinary: Bladder Infection solitary kidney Gastrointestinal: Colitis, Gastroesophageal Reflux, Liver Disease/Jaundice, C- Diff, Gall Bladder Disease Musculoskeletal: Arthritis, Rheumatoid Arthritis Endocrine: Hypothyroidsim, Diabetes, Non-Insulin dep Cancer: Ovarian Did You Recieve Any Treatments: Yes What Type of Treatment Did You: Surgical Intervention History of Blood Disorders: No Adverse Reaction to Blood Tucker: No Family History Arthritis 19 MOTHER Cardiovascular disease 19 MOTHER Diabetes mellitus 19 FATHER 19 MOTHER No Pertinent Family Hx PAST MEDICAL /SURGICAL HISTORY: -12/2019--HAD SEVERE C. DIFFICILE COLITIS--ADMITTED TO [facility] 01/21/20. PT HAD SYNCOPAL EPISODE WITH LOSS OF PULSE AND CPR/RESUSCITATION FOR APPROXIMATELY 2 MINUTES WITH [facility]. DURING THAT STAY SHE HAD ATRIAL FIBRILLATION WITH [facility] THAT REQUIRED CARDIOVERSION PT UNDERWENT SUBTOTAL COLECTOMY WITH PERMANENT ILEOSTOMY. PT REPORTS THAT SHE WAS ON VENTILATOR FOR 10 DAYS PT WAS TRANSFERRED FROM [facility] TO [facility], AND WAS THERE FROM 02/08/20-02/28/20, THEN TRANSFERRED HERE FOR REHAB FROM 02/28/20-03/10/20. SEEING WOUND CARE FOR DELAYED HEALING OF MIDLINE SURGICAL WOUND AND SKIN BREAKDOWN AROUND STOMA. 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 JOE -SEBACEOUS CYST OF ABDOMINAL WALL REMOVED 05/[address] JOE -SUBTOTAL COLECTOMY WITH PERMANENT ILEOSTOMY 12/2019 AT [facility] [address] BRYANT Review of Systems Constitutional: see HPI, dizziness, fever, malaise, weakness EENTM: no symptoms reported Respiratory: no symptoms reported Cardiovascular: no symptoms reported Gastrointestinal: no symptoms reported Genitourinary: no symptoms reported Musculoskeletal: no symptoms reported Skin: no symptoms reported Psychiatric/Neurological: No Symptoms Reported All Other Systems Reviewed Negative Unless Noted: Yes Physical Exam Physical Exam Vital Signs Vital Signs - First Documented 11/12/21 11/12/21 11/12/21 18:00 18:53 19:32 Temp 38.9 Pulse 118 B/P (MAP) 112/85 Pulse Ox 99 O2 Delivery Room Air O2 Flow Rate 0.00 FiO2 21 Capillary Refill : Height, Weight, BMI Height: '" Weight: lbs. oz. kg; 18.94 BMI Method:Stated General Appearance: WD/WN, Anxious, Chronically ill, Mild Distress, Thin Eyes: Bilateral Eye Normal Inspection, Bilateral Eye PERRL HEENT: PERRL/EOMI, Normal ENT Inspection, Pharynx Normal Neck: Full Range of Motion, Normal Inspection, Non Tender, Supple, Carotid Bruit Respiratory: Chest Non Tender, Lungs Clear, Normal Breath Sounds, No Accessory Muscle Use, No Respiratory Distress Cardiovascular: Regular Rate, Rhythm, No Edema, No Gallop, No JVD, No Murmur, Normal Peripheral Pulses, Tachycardia Gastrointestinal: Normal Bowel Sounds, No Organomegaly, No Pulsatile Mass, Non Tender, Soft Back: Normal Inspection, No CVA Tenderness, No Vertebral Tenderness Extremity: Normal Capillary Refill, Normal Inspection, Normal Range of Motion, Non Tender, No Calf Tenderness, No Pedal Edema Neurologic/Psychiatric: Alert, Oriented x3, No Motor/Sensory Deficits, 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 Skin: Normal Color, Warm/Dry Lymphatic: No Adenopathy Results Results/Procedures Labs Laboratory Tests 11/12/21 18:28 11/13/21 04:35 Patient resulted labs reviewed. 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
[2021-11-12] MEDS ORDERED: ENOXAPARIN INJECTION 30 MG/0.3 ML SYR SC SCH (17:30)
[2021-11-12] MEDS: NS IV 1000 ML 1,000 ML IV SCH (18:03)
[2021-11-12] MEDS: ENOXAPARIN 40 MG/0.4 ML (LOVENOX) SYR SC SCH (18:03)
--- NOTE | 2021-11-12 18:30 | Tele-ICU Progress Note ---
Subjective Date Seen by a Provider: Nov 12, 2021 Time Seen by a Provider: 18:24 Subjective/Events-last exam Available chart/vitals/labs/images reviewed. Video assessment done using telemetry ICU camera, rest of exam as per RN. Discussion with the RN, exam as per RN. Hospital course She is 76-year-old female with past medical history of for subtotal colectomy due to C. difficile colitis in December 2019 latter complicated by pelvic abscess requiring IR placement of a drainage. He apparently she was admitted at the [facility] from 620 11/30/2021 to 11/11/2021 due to severe deconditioning followed by admission to [facility] stay on 10/14/2021 due to confusion and sepsis. Reportedly she had a fall on that is on 11/11/2021 and laid down on the floor at home for about 18 hours and later found by home health nurse and called ambulance. She is found to be very weak and had a lactic acidosis and initially admitted to medical surgical floor and promptly moved to the intensive care unit due to severe weakness and metabolic acidosis. She is now being hydrated with IV fluids and a KCl is being replaced. She is a poor historian but she is in no acute respiratory distress upon my video visit. I have discussed with the SOLAR ENERGY SYSTEMS ENGINEER and obtained some history. He is also found to be COVID19 PCR positive. Sepsis Event Evaluation Height, Weight, BMI Height: '" Weight: lbs. oz. kg; 18.94 BMI Method:Stated Exam Exam Patient acknowledged, consented, and participated in this virtual visit which was conducted using real time audio/video Vital Signs Date Time Temp Pulse Resp B/P (MAP) Pulse Ox O2 Delivery O2 Flow Rate FiO2 11/12/21 18:00 118 112/85 99 Room Air Height & Weight Height: '" Weight: lbs. oz. kg; 18.94 BMI Method:Stated General Appearance: Chronically ill Other comments pe per rn integrity/Plan Assessment/Plan 1. Severe weakness associated with a fever and lactic acidosis. Needs to rule out sepsis. 2. Dehydration 3. COVID19 infection. 4. Anemia of chronic disease 5. Hyperglycemia. Recommendations 1. We will get blood cultures and initiate sepsis work-up 2. Broad-spectrum IV antibiotics 3. Hydrate patient with normal saline 4. Monitor lactate level. 5. DVT prophylaxis and ulcer prophylaxis. 6. Reviewed with SOLAR ENERGY SYSTEMS ENGINEER. Critical Care: Critically Ill Patient Time spent with patient (mins): 25 DIANA RIEVRA MD Nov 12, 2021 18:30
[2021-11-12] MEDS ORDERED: PROCHLORPERAZINE 10 MG/2ML INJ (COMPAZINE) IV PRN (18:45)
[2021-11-12 18:53] VITALS: BP 112/85
[2021-11-12 18:57] LABS: ALBUMIN 2.3 GM/DL (3.2-4.5)
[2021-11-12 18:58] LABS: POTASSIUM 3.7 MMOL/L (3.6-5.0)
[2021-11-12 18:59] LABS: CALCIUM 6.8 MG/DL (8.5-10.1)
[2021-11-12 19:00] LABS: TOTAL PROTEIN 5.2 GM/DL (6.4-8.2)
[2021-11-12 19:02] LABS: BILIRUBIN,TOTAL 0.3 MG/DL (0.1-1.0)
[2021-11-12 19:03] LABS: CREATININE SERUM 0.84 MG/DL (0.60-1.30)
[2021-11-12 19:12] LABS: CREATINE KINASE MB 6.2 NG/ML (<6.6)
[2021-11-12] MEDS ORDERED: RT-ALBUTEROL HFA 8.5 GM INHALER IH PRN (19:45)
[2021-11-12] MEDS: POTASSIUM CL 10MEQ/50ML IVPB 50 ML IV SCH ×2 (19:54→22:21)
[2021-11-12] MEDS: DOCUSATE SODIUM 100 MG (COLACE) CAP PO SCH (20:18)
[2021-11-12] MEDS: SENNOSIDES 8.6 MG (SENOKOT) TAB PO SCH (20:19)
[2021-11-13] MEDS: NS IV 1000 ML 1,000 ML IV SCH (03:02)
[2021-11-13 04:55] LABS: BASOPHILS # (AUTO) 0.1 10^3/uL (0.0-0.1); BASOPHILS % (AUTO) 1 % (0-10); EOSINOPHILS % (AUTO) 0 % (0-10); HEMATOCRIT 34 % (35-52); LYMPHOCYTES # (AUTO) 1.9 10^3/uL (1.0-4.0); LYMPHOCYTES % (AUTO) 30 % (12-44); MEAN CORPUSCULAR HEMOGLOBIN 29 pg (25-34); MEAN CORPUSCULAR HGB CONC 32 g/dL (32-36); MEAN CORPUSCULAR VOLUME 91 fL (80-99); MEAN PLATELET VOLUME 10.7 fL (9.0-12.2); MONOCYTES # (AUTO) 0.3 10^3/uL (0.0-1.0); MONOCYTES % (AUTO) 5 % (0-12); NEUTROPHILS % (AUTO) 63 % (42-75); PLATELET COUNT 219 10^3/uL (130-400); WHITE BLOOD COUNT 6.4 10^3/uL (4.3-11.0)
[2021-11-13 05:05] LABS: ALBUMIN 2.5 GM/DL (3.2-4.5); POTASSIUM 4.2 MMOL/L (3.6-5.0)
[2021-11-13 05:06] LABS: CALCIUM 6.9 MG/DL (8.5-10.1)
[2021-11-13 05:08] LABS: TOTAL PROTEIN 5.8 GM/DL (6.4-8.2)
[2021-11-13 05:09] LABS: BILIRUBIN,TOTAL 0.4 MG/DL (0.1-1.0)
[2021-11-13 05:11] LABS: CREATININE SERUM 0.83 MG/DL (0.60-1.30); PHOSPHORUS 1.4 MG/DL (2.3-4.7)
[2021-11-13 05:14] LABS: MAGNESIUM 1.8 MG/DL (1.6-2.4)
[2021-11-13 05:35] LABS: ABG BASE EXCESS -11.9 MMOL/L (-2.5-2.5); ABG OXYGEN SATURATION 91 % (94-100); ABG PH 7.41 (7.37-7.43); ABG PO2 58 MMHG (79-93); ABG TCO2 12.5 MMOL/L (21.0-31.0)
[2021-11-13 05:41] LABS: ABG PCO2 19 MMHG (35-45); ALLENS TEST YES-POS; INSPIRED O2 ROOM AIR; PATIENT TEMP 98.6; VENTILATOR NO
[2021-11-13] MEDS ORDERED: CALC GLUC 1 GM/100 ML IVPB 100 ML IV ONE (06:00)
[2021-11-13] MEDS: MAGNESIUM 1 GM/100 ML IVPB 100 ML IV SCH ×3 (06:04→09:01)
[2021-11-13] MEDS: POTASSIUM CL 10MEQ/50ML IVPB 50 ML IV SCH (06:04)
[2021-11-13] MEDS: KCL 20 MEQ TAB (K-DUR) PO SCH (06:05)
[2021-11-13] MEDS ORDERED: SODIUM PHOSPHATE INJ 30 MM in NS (IVPB) 250 ML INJ ONE (07:00)
--- NOTE | 2021-11-13 08:59 | Tele-ICU Progress Note ---
Subjective Date Seen by a Provider: Nov 13, 2021 Time Seen by a Provider: 08:55 Subjective/Events-last exam Available chart/vitals/labs/images reviewed. Video assessment done using telemetry ICU camera, rest of exam as per RN. Discussion with the RN, exam as per RN. Hospital course She looks comfortable today. Denies any chest pain but she has a sinus tachycardia for which we have done an EKG and it showed anterolateral ischemia. Cardiology consultation is requested and echo ordered. Hemodynamically improving. She is on a bicarbonate drip per nongap metabolic acidosis. Lactic acid is trending down. Hyperglycemia improving Sepsis Event Evaluation Height, Weight, BMI Height: '" Weight: lbs. oz. kg; 20.27 BMI Method:Stated Focused Exam Lactate Level 11/12/21 18:28: Lactic Acid Level 2.99*H 11/13/21 04:35: Lactic Acid Level 2.16*H Exam Exam Patient acknowledged, consented, and participated in this virtual visit which was conducted using real time audio/video Vital Signs Date Time Temp Pulse Resp B/P (MAP) Pulse Ox O2 Delivery O2 Flow Rate FiO2 11/13/21 08:00 128 27 128/92 95 Room Air 11/13/21 07:54 36.7 11/13/21 07:00 125 11/13/21 07:00 121 26 117/88 100 Room Air 11/13/21 06:00 123 30 128/93 89 Room Air 11/13/21 05:00 121 25 134/97 97 Room Air 11/13/21 04:00 100 Room Air 11/13/21 04:00 118 26 123/91 93 Room Air 11/13/21 03:00 116 17 108/67 97 Room Air 11/13/21 02:00 90 20 116/78 96 Room Air 11/13/21 01:00 113 32 120/90 98 Room Air 11/13/21 01:00 110 11/13/21 00:00 115 119/89 Room Air 11/12/21 23:59 100 Room Air 11/12/21 23:00 113 115/86 90 Room Air 11/12/21 22:00 116 16 111/78 100 Room Air 11/12/21 21:00 130 22 120/84 100 Room Air 11/12/21 20:00 100 Room Air 11/12/21 20:00 115 19 109/86 98 Room Air 11/12/21 19:32 100 Room Air 0.00 11/12/21 19:00 118 11/12/21 19:00 115 19 99 Room Air 11/12/21 18:53 38.9 118 99 21 11/12/21 18:45 99 Room Air 11/12/21 18:00 118 112/85 99 Room Air I & O 11/13/21 07:00 Intake Total 470 ml Output Total 775 ml Balance -305 ml Height & Weight Height: '" Weight: lbs. oz. kg; 20.27 BMI Method:Stated General Appearance: Chronically ill HEENT: PERRL/EOMI, Normal ENT Inspection, Pharynx Normal Neck: Full Range of Motion, Normal Inspection, Non Tender, Supple, Carotid Bruit Respiratory: Chest Non Tender, Lungs Clear, Normal Breath Sounds, No Accessory Muscle Use, No Respiratory Distress Cardiovascular: Regular Rate, Rhythm, No Edema, No Gallop, No JVD, No Murmur, Normal Peripheral Pulses, Tachycardia Extremity: Normal Capillary Refill, Normal Inspection, Normal Range of Motion, Non Tender, No Calf Tenderness, No Pedal Edema Neurologic/Psychiatric: Alert, Oriented x3, No Motor/Sensory Deficits, 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 Skin: Normal Color, Warm/Dry Lymphatic: No Adenopathy Other comments PE PER RN Results Lab Laboratory Tests 11/12/21 18:28 11/13/21 04:35 Assessment/Plan Assessment/Plan 1. Severe weakness associated with a fever and lactic acidosis. Needs to rule out sepsis. 2. Dehydration IMPROVING. 3. COVID19 infection. 4. Anemia of chronic disease 5. Hyperglycemia improving. 6. possible NSTEMI Recommendations 1. continue bicarb drip 2. Broad-spectrum IV antibiotics 3. Hydrate patient with bicarb drip 4. Monitor lactate level. 5. DVT prophylaxis and ulcer prophylaxis. 6. cardilogy consult, check troponin level. 7. check echo now. 8. replace phosphate Critical Care: Critically Ill Patient Time spent with patient (mins): 25 DIANA RIVERA MD Nov 13, 2021 08:59
[2021-11-13] MEDS: DOCUSATE SODIUM 100 MG (COLACE) CAP PO SCH ×2 (09:01→20:32)
[2021-11-13] MEDS: SENNOSIDES 8.6 MG (SENOKOT) TAB PO SCH ×2 (09:01→20:32)
[2021-11-13] MEDS: SODIUM BICARBONATE 8.4% SYR 150 MEQ in D5W 1000 ML IV SOLUTION 1,000 ML IV SCH ×2 (09:05→16:36)
--- NOTE | 2021-11-13 09:06 | Diagnostic Imaging Report ---
INDICATION: Covid-19 positive. TIME OF EXAM: 5:28 AM Correlation is made with prior chest from one day earlier. FINDINGS: Heart size stable. Interstitial changes are slightly more prominent on today's study when compared with yesterday. No effusion or pneumothorax is seen. IMPRESSION: Mild increase in interstitial changes when compared with examination one day earlier. Dictated by: Dictated on workstation # [id number]
[2021-11-13] MEDS ORDERED: meTOprolol 5 MG/5 ML (LOPRESSOR) VIAL IV SCH (12:00)
--- NOTE | 2021-11-13 12:42 | Progress Note ---
Subjective Date Seen by a Provider: Nov 13, 2021 Time Seen by a Provider: 12:00 Subjective/Events-last exam Patient doing about the same No fever noted Cough is beginning CXR appears to have some transition to COVID PNA? Consult Dr Vera for central line Consult Dr Rivera for chest pain Review of Systems General: Fatigue, Malaise Pulmonary: Dyspnea, Cough Cardiovascular: Chest Pain Focused Exam Lactate Level 11/12/21 18:28: Lactic Acid Level 2.99*H 11/13/21 04:35: Lactic Acid Level 2.16*H Objective Exam Last Set of Vital Signs Vital Signs Date Time Temp Pulse Resp B/P (MAP) Pulse Ox O2 Delivery O2 Flow Rate FiO2 11/13/21 12:00 102 25 104/81 92 Room Air 11/13/21 07:54 36.7 11/12/21 19:32 0.00 11/12/21 18:53 21 Capillary Refill : I&O Intake and Output 11/13/21 00:00 Intake Total 45 ml Output Total 550 ml Balance -505 ml Intake Oral 45 ml Output Urine Total 200 ml Urine/Stool Mix 350 ml Daily Weight Change No General: Alert, Oriented X3, Cooperative, No Acute Distress Lungs: Other (diminished) Heart: Other (tachy) Psych/Mental Status: Mental Status NL, Mood NL Results Lab Laboratory Tests 11/12/21 18:28: D-Dimer 1.94H, Sodium Level 140, Potassium Level 3.7, Chloride Level 111H, Carbon Dioxide Level 15L, Anion Gap 14, Blood Urea Nitrogen 6L, Creatinine 0.84, Estimat Glomerular Filtration Rate 72, BUN/Creatinine Ratio 7, Glucose Level 137H, Lactic Acid Level 2.99*H, Calcium Level 6.8L, Corrected Calcium 8.2L, T otal Bilirubin 0.3, Aspartate Amino Transf (AST/SGOT) 84H, Alanine Aminotransferase (ALT/SGPT) 38, Alkaline Phosphatase 40, Creatine Kinase MB 6.2, Total Protein 5.2L, Albumin 2.3L 11/13/21 04:35: Sodium Level 137, Potassium Level 4.2, Chloride Level 113H, Carbon Dioxide Level 12L, Anion Gap 12, Blood Urea Nitrogen 8, Creatinine 0.83, Estimat Glomerular Filtration Rate 73, BUN/Creatinine Ratio 10, Glucose Level 92, Lactic Acid Level 2.16*H, Calcium Level 6.9L, Corrected Calcium 8.1L, Total Bilirubin 0.4, Aspartate Amino Transf (AST/SGOT) 75H, Alanine Aminotransferase (ALT/SGPT) 38, Alkaline Phosphatase 44, Total Protein 5.8L, Albumin 2.5L, White Blood Count 6.4, Red Blood Count 3.77L, Hemoglobin 11.0#L, Hematocrit 34L, Mean Corpuscular Volume 91, Mean Corpuscular Hemoglobin 29, Mean Corpuscular Hemoglobin Concent 32, Red Cell Distribution Width 19.0H, Platelet Count 219, Mean Platelet Volume 10.7, Immature Granulocyte % (Auto) 0, Neutrophils (%) (Auto) 63, Lymphocytes (%) (Auto) 30, Monocytes (%) (Auto) 5, Eosinophils (%) (Auto) 0, Basophils (%) (Auto) 1, Neutrophils # (Auto) 4.0, Lymphocytes # (Auto) 1.9, Monocytes # (Auto) 0.3, Eosinophils # (Auto) 0.0, Basophils # (Auto) 0.1, Immature Granulocyte # (Auto) 0.0, Phosphorus Level 1.4L, Magnesium Level 1.8 11/13/21 05:25: Blood Gas Puncture Site LEFT RADIAL, Blood Gas Patient Temperature 98.6, Arterial Blood pH 7.41, Arterial Blood Partial Pressure CO2 19*L, Arterial Blood Partial Pressure O2 58L, Arterial Blood HCO3 12*L, Arterial Blood Total CO2 12.5L, Arterial Blood Oxygen Saturation 91L, Arterial Blood Base Excess -11.9L, Donte Test YES-POS, Blood Gas Ventilator Setting NO, Blood Gas Inspired Oxygen ROOM AIR 11/13/21 07:42: Glucometer 107 Assessment/Plan Assessment/Plan Assess & Plan/Chief Complaint Assessment: COVID infection in vaccinated and 1 booster Metabolic acidosis Tachycardia Fever Weakness Found down at home for 18 hours 11/11/21 Recent pelvic abscess s/p IR drain at [facility] 10/14/[address] Nieves 10/2021 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 01/22/2020 HTN HLP AF CKD Stage 3a s/p nephrectomy as a child DM2 Poor vascular access central line placed by Dr Vera Chest pain consulting Dr Rivera Plan: ICU IVF Monitor HR EKG Consult Dr Vera for central line and Dr Rivera for chest pain and AF Diagnosis/Problems Diagnosis/Problems (1) COVID (2) Physical debility Status: Acute (3) Rhabdomyolysis Status: Acute (4) Hypoglycemia Status: Acute (5) Dehydration Status: Acute (6) Fall Status: Acute (7) Fistula (8) Ovarian cancer in remission (9) Solitary kidney (10) Myopathy (11) Hypothyroidism (12) Diabetes mellitus (13) Atrial fibrillation LORENZO MIMS DO Nov 13, 2021 12:42
--- NOTE | 2021-11-13 13:23 | Diagnostic Imaging Report ---
INDICATION: Central line placement EXAMINATION: Chest 11/13/2021 COMPARISON: 11/13/2021 5:28 a.m.. FINDINGS: There is a left-sided central line with the tip in the SVC. Heart and pulmonary vasculature normal. There is bibasal atelectasis or infiltrate. No effusions. No pneumothorax. IMPRESSION: 1. Bibasilar atelectasis versus infiltrate. Dictated by: Dictated on workstation # [id number]
--- NOTE | 2021-11-13 13:31 | CONSULTATION REPORT ---
DATE OF SERVICE: 11/13/2021 HISTORY OF PRESENT ILLNESS: The patient is a 76-year-old female with an extensive past medical history. 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 This was done at [facility]. She then underwent a reversal of the colostomy. She then did develop a pelvic abscess, which was drained by interventional radiology. She also did develop a fistula as well. She was admitted for weakness and found to be COVID positive. She also has a very poor peripheral venous circulation and is febrile and tachycardic and will require a central venous catheter. PAST MEDICAL HISTORY: Clostridium difficile toxic megacolon, gastroesophageal reflux disease, degenerative joint disease, rheumatoid arthritis, diabetes, hypothyroid, history of ovarian cancer, atrial fibrillation, hypercholesterolemia, and hypertension. PAST SURGICAL HISTORY: Exploratory laparotomy, subtotal colectomy, colostomy reversal, laparoscopic cholecystectomy, total hysterectomy, nephrectomy, and tonsillectomy. ALLERGIES: PENICILLIN. MEDICATIONS: Amitriptyline 100 mg daily, atorvastatin 40 mg daily, carvedilol 25 mg daily, cetirizine 10 mg daily, famotidine 20 mg daily, fenofibrate 160 mg daily, iron 325 mg b.i.d., latanoprost eyedrops daily, leflunomide 20 mg every other day, levothyroxine 125 mcg daily, and oxybutynin 5 mg b.i.d. SOCIAL HISTORY: Negative smoke and negative alcohol. FAMILY HISTORY: Noncontributory. REVIEW OF SYSTEMS: This a slightly thin-appearing female, currently in no acute distress. She is not experiencing any shortness of breath or difficulty in breathing. No cough or sputum production. She is experiencing no nausea, vomiting; however, does not have much of an appetite. She states that she does have bowel movements and does have a gastrointestinal fistula with minimal drainage. She is having some fevers and has lost weight since her colon resection. PHYSICAL EXAMINATION: VITAL SIGNS: Temperature 38.9, blood pressure 104/81, pulse 102, respirations 25, and pulse ox 92% on room air. CHEST: Few scattered rales bilaterally. HEART: Regular and no murmurs. EXTREMITIES: No lower extremity edema and negative Homans sign. HEENT: No scleral icterus. NECK: No cervical lymphadenopathy. ABDOMEN: Soft, nontender, and nondistended. SKIN: Warm and dry. LABORATORY DATA: WBC 6.4, hemoglobin 11.0, hematocrit 34, and platelets 219. BUN 8 and creatinine 0.83. Lactic acid 2.16. ASSESSMENT AND PLAN: A 76-year-old female with COVID-19, weakness, debility, and respiratory failure. She has a very poor peripheral venous circulation and will require central venous catheter, which we will proceed with. She also does have a fistula at the area of the previous ileorectal anastomosis with an indwelling catheter. At this time, there is minimal drainage and our recommendation is to remove the catheter in hopes of allowing the fistula to close on its own without any surgical intervention. Job ID: [id number] DocumentID: [id number] Dictated Date: 11/13/2021 12:42:00 Motor Expert Date: 11/13/2021 13:31:32 Dictated By: GARRET JOE MD
--- NOTE | 2021-11-13 15:37 | Consultation-Cardiology ---
HPI-Cardiology Cardiology Consultation: Date of Consultation 11/13/21 Time Seen by a Provider: 13:30 Date of Admission Attending Physician Khoa Corbett Admitting Physician Admitting Physician: Nena Muniz DO Attending Physician: Nena Muniz DO Consulting Physician JESSIE IZAGUIRRE MD, MA, FACP, FACC, FSCAI, CCDS Physician requesting consult: Dr Muniz Primary busboy: Dr Gaviria HPI: Chief Complaint: Reason for Card consultation: Tachycardia 76 yo woman admitted to Dr Muniz on 11/12/21. She has a h/o subtotal colectomy with ileostomy in June 2019 for pseudomembranous colitis and ischemic bowel. Had ileostomy reversan in October 2020. Had admission to [facility] on 10/14/21 for pelvice abscess and sepsis. Had al long hospitalization at [facility] (10/20- 11/11/21) for treatment of deconditioning. Admitted to this hosp because of fall at home and being down for 18 hours beferor the nurse found her. She has been diagnosed with Covid 19 during this admission. Reports gen malaise and weakness. Reports some shortness of breath. Reports mild, transthoracic discomfort w/o radiation and w/o associated symptoms, present for over a day, w/o aggravating or relieving factors. Review of Systems-Cardiology Review of Systems Constitutional: malaise; No weight loss, No weight gain Eyes: No vision change Ears/Nose/Throat: No ear discharge, No nasal drainage, No recent hearing loss Respiratory: As described under HPI Cardiovascular: As described under HPI Gastrointestinal: No nausea, No other Genitourinary: No dysuria Musculoskeletal: back pain (chronic) Skin: No rash, No ulcerations Psychiatric/Neurological: No seizure, No focal weakness, No syncope Hematologic: No bleeding abnormalities All Other Systems Reviewed Negative Unless Noted: Yes HWL-Mickjg-Wnwoot Hx Patient Social History Marrital Status: single Employed/Student: retired Smoking Status: Never a Smoker 2nd Hand Smoke Exposure: No Alcohol Use?: No Pt feels they are or have been: No Immunizations Up To Date Date of Pneumonia Vaccine: Feb 06, 2020 Date of Influenza Vaccine: Feb 05, 2020 Past Medical History PMH As described under Assessment. Family Medical History Family History: Arthritis 19 MOTHER Cardiovascular disease 19 MOTHER Diabetes mellitus 19 FATHER 19 MOTHER Allergies and Home Medications Allergies Coded Allergies: Penicillins (Verified Allergy, Unknown, 08/20/20) raspberry (Verified Allergy, Unknown, 08/20/20) Patient Home Medication List Home Medication List Reviewed: Yes Acetaminophen (Tylenol Arthritis) 650 Mg Tablet.er, 650 MG PO Q6H PRN for PAIN- MILD (1-4) OR TEMPATURE, (Reported) Entered as Reported by: CHAZ HARDING on 11/12/21 1145 Amitriptyline HCl (Amitriptyline HCl) 100 Mg Tablet, 100 MG PO HS, (Reported) Entered as Reported by: CHAZ HARDING on 03/03/20 1433 Atorvastatin Calcium (Atorvastatin Calcium) 40 Mg Tablet, 40 MG PO 1700, (Reported) Entered as Reported by: CHAZ HARDING on 11/12/21 1145 Carvedilol (Carvedilol) 25 Mg Tablet, 25 MG PO BID, (Reported) Entered as Reported by: CHAZ HARDING on 11/12/21 1145 Cetirizine HCl (Cetirizine HCl) 10 Mg Tablet, 10 MG PO DAILY, (Reported) Entered as Reported by: CHAZ HARDING on 02/28/20 1109 Cholecalciferol (Vitamin D3) (Vitamin D3) 25 Mcg (1000 Unit) Capsule, 25 MCG PO DAILY, (Reported) Entered as Reported by: CHAZ HARDING on 11/12/21 1145 Docusate Sodium (Docusate Sodium) 100 Mg Tablet, 100 MG PO BID, (Reported) Entered as Reported by: CHAZ HARDING on 11/12/21 1145 Famotidine (Famotidine) 20 Mg Tablet, 20 MG PO DAILY, (Reported) Entered as Reported by: CHAZ HARDING on 11/12/21 1145 Fenofibrate (Fenofibrate) 160 Mg Tablet, 160 MG PO HS, (Reported) Entered as Reported by: CHAZ HARDING on 03/03/20 1433 Ferrous Sulfate (Iron) 325 Mg Tablet, 325 MG PO BID, (Reported) Entered as Reported by: CHAZ HARDING on 03/04/20 1256 Latanoprost (Xalatan) 0.005 % Drops, 1 DROP OU HS, (Reported) Entered as Reported by: CHAZ HARDING on 11/12/21 1145 Leflunomide (Leflunomide) 20 Mg Tablet, 20 MG PO Q48H, (Reported) Entered as Reported by: CHAZ HARDING on 03/03/20 1434 Levothyroxine Sodium (Levothyroxine Sodium) 125 Mcg Tablet, 125 MCG PO DAILY, (Reported) Entered as Reported by: CHAZ HARDING on 11/12/21 1145 Nystatin (Nystatin) 100,000 Unit/Ml Oral.susp, 5 ML PO QID, (Reported) Entered as Reported by: CHAZ HARDING on 11/12/21 1145 Oxybutynin Chloride (Oxybutynin Chloride) 5 Mg Tablet, 5 MG PO BID, (Reported) Entered as Reported by: CHAZ HARDING on 11/12/21 1145 Saccharomyces Boulardii (Florastor) 250 Mg Capsule, 250 MG PO DAILY, (Reported) Entered as Reported by: CHAZ HARDING on 11/12/21 1145 Timolol Maleate (Timolol Maleate 0.5%) 0.5 % Drops, 1 DROP OU HS, (Reported) Entered as Reported by: CHAZ HARDING on 11/12/21 1145 Discontinued Medications Amlodipine Besylate (Amlodipine Besylate) 10 Mg Tablet, 10 MG PO DAILY, (Reported) Discontinued Reason: No Longer Taking Entered as Reported by: CHAZ HARDING on 02/28/20 1109 Aspirin (Aspirin) 81 Mg Tab.chew, 81 MG PO DAILY, (Reported) Discontinued Reason: No Longer Taking Entered as Reported by: CHAZ HARDING on 02/28/20 1110 Atorvastatin Calcium (Atorvastatin Calcium) 20 Mg Tablet, 20 MG PO DAILY, (Reported) Discontinued Reason: Prescription changed Entered as Reported by: CHAZ HARDING on 03/03/20 1433 Carvedilol (Carvedilol) 12.5 Mg Tablet, 12.5 MG PO BID, (Reported) Discontinued Reason: Prescription changed Entered as Reported by: FRED GOLDBERG on 10/05/20 1503 Fish Oil/Dha/Epa (Fish Oil 1,200 mg Fish Oil) 1 Each Capsule, 2 EACH PO BID, (Reported) Discontinued Reason: No Longer Taking Entered as Reported by: CHAZ HARDING on 03/03/20 1448 Hydrocodone/Acetaminophen (Hydrocodone-Acetamin 5-325 mg) 1 Each Tablet, 1 TAB PO Q4H PRN for PAIN-MODERATE (5-7) Discontinued Reason: No Longer Taking Prescribed by: JESS FISHER on 11/30/201914 Levothyroxine Sodium (Levothyroxine Sodium) 112 Mcg Tablet, 112 MCG PO GUILLORY,TU,WE,REFUGIO,FR,SA, (Reported) Discontinued Reason: No Longer Taking Entered as Reported by: CHAZ HARDING on 03/03/20 1433 Pantoprazole Sodium (Pantoprazole Sodium) 40 Mg Tablet.dr, 40 MG PO DAILY, (Reported) Discontinued Reason: No Longer Taking Entered as Reported by: CHAZ HARDING on 03/03/20 1433 Pilocarpine (Salagen) 5 Mg Tab, 10 MG PO BID, (Reported) Discontinued Reason: No Longer Taking Entered as Reported by: CHAZ HARDING on 03/03/20 1433 Pioglitazone HCl (Pioglitazone HCl) 30 Mg Tablet, 30 MG PO DAILY, (Reported) Discontinued Reason: No Longer Taking Entered as Reported by: CHAZ HARDING on 03/03/20 1433 Simethicone (Gas Relief 80) 80 Mg Tab.chew, 80 MG PO UD PRN for GAS, (Reported) Discontinued Reason: No Longer Taking Entered as Reported by: CHAZ HARDING on 03/03/20 1433 Sodium Bicarbonate (Sodium Bicarbonate) 650 Mg Tablet, 650 MG PO BID, (Reported) Discontinued Reason: No Longer Taking Entered as Reported by: KAIN ALVARADO on 09/29/20 1307 Tramadol HCl (Tramadol HCl) 50 Mg Tablet, 50 MG PO QID Discontinued Reason: No Longer Taking Prescribed by: YADIRA LONDON on 11/27/20 1509 Physical Exam-Cardiology Physical Exam Vital Signs/I&O 11/13/21 11/13/21 11/13/21 11/13/21 04:00 04:00 05:00 06:00 Pulse 118 121 123 Resp 26 25 30 B/P (MAP) 123/91 134/97 128/93 Pulse Ox 93 100 97 89 O2 Delivery Room Air Room Air Room Air Room Air 11/13/21 11/13/21 11/13/21 11/13/21 07:00 07:00 07:54 08:00 Temp 36.7 Pulse 121 125 128 Resp 26 27 B/P (MAP) 117/88 128/92 Pulse Ox 100 95 O2 Delivery Room Air Room Air 11/13/21 11/13/21 11/13/21 11/13/21 09:00 09:00 10:00 11:00 Pulse 129 126 122 Resp 29 25 25 B/P (MAP) 120/84 112/74 120/82 Pulse Ox 91 93 91 O2 Delivery Room Air Room Air Room Air Room Air 11/13/21 11/13/21 11/13/21 11/13/21 12:00 12:40 12:52 13:00 Pulse 102 105 110 Resp 25 16 B/P (MAP) 104/81 114/78 Pulse Ox 92 91 O2 Delivery Room Air Room Air Room Air 11/13/21 11/13/21 14:00 15:00 Pulse 120 116 Resp 23 B/P (MAP) 118/87 123/86 Pulse Ox 94 95 O2 Delivery Room Air Room Air 11/13/21 00:00 Intake Total 45 ml Output Total 550 ml Balance -505 ml Capillary Refill : Constitutional: AAO x 3, well-developed, other (thin appearing) HEENT: PERRL Neck: carotid pulses are 2 + bilaterally Respiratory: No accessory muscle use; other (fair to good, bilateral air entry) Cardiovascular: regular rate-rhythm, S1 and S2, systolic murmur (soft DAVIS at card base) Gastrointestinal: No tender; soft; No guarding, No rebound; audible bowel sounds Extremities: No clubbing, No cyanosis, No significant edema Neurologic/Psychiatric: oriented x 3, other (moves all limbs equally) Skin: warm/dry; No rash, No ulcerations Data Review Labs Laboratory Tests 11/12/21 18:28: D-Dimer 1.94H, Sodium Level 140, Potassium Level 3.7, Chloride Level 111H, Carbon Dioxide Level 15L, Anion Gap 14, Blood Urea Nitrogen 6L, Creatinine 0.84, Estimat Glomerular Filtration Rate 72, BUN/Creatinine Ratio 7, Glucose Level 137H, Lactic Acid Level 2.99*H, Calcium Level 6.8L, Corrected Calcium 8.2L, Total Bilirubin 0.3, Aspartate Amino Transf (AST/SGOT) 84H, Alanine Aminotra nsferase (ALT/SGPT) 38, Alkaline Phosphatase 40, Creatine Kinase MB 6.2, Total Protein 5.2L, Albumin 2.3L 11/13/21 04:35: Sodium Level 137, Potassium Level 4.2, Chloride Level 113H, Carbon Dioxide Level 12L, Anion Gap 12, Blood Urea Nitrogen 8, Creatinine 0.83, Estimat Glomerular Filtration Rate 73, BUN/Creatinine Ratio 10, Glucose Level 92, Lactic Acid Level 2.16*H, Calcium Level 6.9L, Corrected Calcium 8.1L, Total Bilirubin 0.4, Asparta te Amino Transf (AST/SGOT) 75H, Alanine Aminotransferase (ALT/SGPT) 38, Alkaline Phosphatase 44, Total Protein 5.8L, Albumin 2.5L, White Blood Count 6.4, Red Blood Count 3.77L, Hemoglobin 11.0#L, Hematocrit 34L, Mean Corpuscular Volume 91, Mean Corpuscular Hemoglobin 29, Mean Corpuscular Hemoglobin Concent 32, Red Cell Distribution Width 19.0H, Platelet Count 219, Mean Platelet Volume 10.7, Immature Granulocyte % (Auto) 0, Neutrophils (%) (Auto) 63, Lymphocytes (%) (Auto) 30, Monocytes (%) (Auto) 5, Eosinophils (%) (Auto) 0, Basophils (%) (Auto) 1, Neutrophils # (Auto) 4.0, Lymphocytes # (Auto) 1.9, Monocytes # (Auto) 0.3, Eosinophils # (Auto) 0.0, Basophils # (Auto) 0.1, Immature Granulocyte # (Auto) 0.0, Phosphorus Level 1.4L, Magnesium Level 1.8 11/13/21 05:25: Blood Gas Puncture Site LEFT RADIAL, Blood Gas Patient Temperature 98.6, Arterial Blood pH 7.41, Arterial Blood Partial Pressure CO2 19*L, Arterial Blood Partial Pressure O2 58L, Arterial Blood HCO3 12*L, Arterial Blood Total CO2 12.5L, Arterial Blood Oxygen Saturation 91L, Arterial Blood Base Excess -11.9L, Donte Test YES-POS, Blood Gas Ventilator Setting NO, Blood Gas Inspired Oxygen ROOM AIR 11/13/21 07:42: Glucometer 107 11/13/21 11:42: Glucometer 159H 11/13/21 14:35: Lactic Acid Level 1.53, Troponin I 1.634*H Laboratory Tests 11/12/21 18:28 11/13/21 04:35 A/P-Cardiology Assessment/Admission Diagnosis Ac systolic CHF (HFrEF) due to ischemic cardiomyopathy - Echo on 11/13/21: LVEF 20-25%, anteroseptal and apical akinesis, mod enlargement of LA, grade 2 diastolic dysfunction, mild MR, PASP 35-40 mmHg Mild troponin elevation - likely type 2 TN due to ac systolic CHF Covid-19 Gen weakness and malaise after long hospitalization of pelvic abscess and sepsis (September - October 2021) Transient episode of atrial fibrillation in March 2020 treated with electrical cardioversion by Dr Gaviria. No recurrence reported. 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 difficile colitis; subsequent ileostomy reversal in 2020 H/o hypertension and hyperlipidemia Diabetes mellitus II, followed and managed by primary care physician History of solitary kidney and history of ovarian cancer. Hypothyroidism, followed and managed by primary care physician Rheumatoid arthritis and osteoarthritis Carotid artery stenosis followed by Dr Claudio Discussion and Recomendations * ASA * Heart failure meds (see orders) * DVT prophylaxis with enoxaparin * Monitor labs closely * Dr Muniz managing acute Covid-19 * Further recs based on hosp course JESSIE IZAGUIRRE MD FACP FACC CCDS Nov 13, 2021 15:37
[2021-11-13] MEDS ORDERED: FUROSEMIDE 40 MG (LASIX) TAB PO ONE (16:15)
[2021-11-13] MEDS ORDERED: SPIRONOLACTONE 25 MG (ALDACTONE) TAB PO ONE (16:15)
[2021-11-13] MEDS ORDERED: ASPIRIN 81 MG CHEW (CHILDREN'S ASA) PO ONE (16:15)
--- NOTE | 2021-11-13 16:24 | OPERATIVE REPORT ---
DATE OF SERVICE: 11/13/2021 ATTENDING PRIMARY CARE PHYSICIAN: ZAHRA Nguyen. ATTENDING PHYSICIAN: Dr. Muniz. INDICATIONS FOR PROCEDURE: The patient is a 76-year-old female with multiple medical history. She has had a history of Clostridium difficile, toxic megacolon requiring a subtotal colectomy. This was later reversed. She was very weak and was in long-term acute care hospital for some amount of time. She again became weak and fell at home. She was found to be COVID positive. She is tachycardic and has very poor peripheral venous circulation and will require a central venous catheter. DESCRIPTION OF PROCEDURE: Chest and neck were prepped and draped in a standard surgical fashion. A 1% lidocaine was used to anesthetize the left subclavian region. The left subclavian vein was then cannulated with drawing of venous blood and the guidewire was then inserted without any resistance. Cannulating needle was removed and a skin incision was made using 11 blade. A tract was then created using a venous dilator and through this opening, a triple lumen central venous catheter was placed over the guidewire using the Seldinger technique. The guidewire was removed and all three ports heladio venous blood and saline pushed in without any resistance. Catheter was then sutured to the skin using interrupted 3-0 silk sutures, cleaned, and covered with Op-Site. The patient tolerated the procedure well. We will get a post procedure chest x-ray. Job ID: [id number] DocumentID: [id number] Dictated Date: 11/13/2021 12:44:22 Head Paper Tester Date: 11/13/2021 16:23:52 Dictated By: GARRET JOE MD
[2021-11-13] MEDS: ENOXAPARIN 40 MG/0.4 ML (LOVENOX) SYR SC SCH (16:29)
[2021-11-13] MEDS: SACUBITRIL/VALSARTAN 24/26 MG (ENTRESTO) TABLET PO SCH (20:55)
[2021-11-13] MEDS: inSUlin ASPART (NovoLOG) 1 UNIT/0.01 ML (CHARGE PER UNIT) SQ SCH (20:55)
[2021-11-14] MEDS: inSUlin ASPART (NovoLOG) 1 UNIT/0.01 ML (CHARGE PER UNIT) SQ SCH ×7 (01:05→23:45)
[2021-11-14] MEDS: SODIUM BICARBONATE 8.4% SYR 150 MEQ in D5W 1000 ML IV SOLUTION 1,000 ML IV SCH ×2 (03:07→17:24)
[2021-11-14 04:28] LABS: BASOPHILS % (AUTO) 1 % (0-10); EOSINOPHILS % (AUTO) 1 % (0-10); HEMATOCRIT 27 % (35-52); LYMPHOCYTES # (AUTO) 1.6 10^3/uL (1.0-4.0); LYMPHOCYTES % (AUTO) 29 % (12-44); MEAN CORPUSCULAR HEMOGLOBIN 29 pg (25-34); MEAN CORPUSCULAR HGB CONC 33 g/dL (32-36); MEAN CORPUSCULAR VOLUME 88 fL (80-99); MEAN PLATELET VOLUME 10.5 fL (9.0-12.2); MONOCYTES # (AUTO) 0.3 10^3/uL (0.0-1.0); MONOCYTES % (AUTO) 5 % (0-12); NEUTROPHILS # (AUTO) 3.5 10^3/uL (1.8-7.8); NEUTROPHILS % (AUTO) 64 % (42-75); PLATELET COUNT 165 10^3/uL (130-400); WHITE BLOOD COUNT 5.5 10^3/uL (4.3-11.0)
[2021-11-14 04:47] LABS: POTASSIUM 3.2 MMOL/L (3.6-5.0)
[2021-11-14 04:48] LABS: CALCIUM 6.2 MG/DL (8.5-10.1)
[2021-11-14 04:50] LABS: TOTAL PROTEIN 4.9 GM/DL (6.4-8.2)
[2021-11-14 04:51] LABS: BILIRUBIN,TOTAL 0.4 MG/DL (0.1-1.0)
[2021-11-14 04:53] LABS: CREATININE SERUM 0.77 MG/DL (0.60-1.30); PHOSPHORUS 1.6 MG/DL (2.3-4.7)
[2021-11-14 04:56] LABS: MAGNESIUM 1.6 MG/DL (1.6-2.4)
[2021-11-14] MEDS ORDERED: MAGNESIUM 1 GM/100 ML IVPB 100 ML IV ONE (05:30)
[2021-11-14] MEDS: KCL 20 MEQ TAB (K-DUR) PO SCH (05:33)
[2021-11-14] MEDS: MAGNESIUM 1 GM/100 ML IVPB 100 ML IV SCH ×3 (05:34→06:07)
[2021-11-14] MEDS: POTASSIUM CL 10MEQ/50ML IVPB 50 ML IV SCH (05:34)
[2021-11-14] MEDS ORDERED: KCL 20 MEQ TAB (K-DUR) PO ONE ×2 (06:00→08:00)
[2021-11-14 06:18] LABS: ABG BASE EXCESS -2.6 MMOL/L (-2.5-2.5); ABG OXYGEN SATURATION 97 % (94-100); ABG PCO2 24 MMHG (35-45); ABG PH 7.52 (7.37-7.43); ABG PO2 93 MMHG (79-93); ABG TCO2 20.8 MMOL/L (21.0-31.0)
[2021-11-14 06:19] LABS: ALLENS TEST YES-POS; INSPIRED O2 ROOM AIR; PATIENT TEMP 36.9; VENTILATOR NO
--- NOTE | 2021-11-14 06:49 | Progress Note ---
Subjective Date Seen by a Provider: Nov 14, 2021 Time Seen by a Provider: 11:00 Subjective/Events-last exam Patient is doing better No hypoxia noted EF on ECHO 20-25% ischemic type Type II OR noted Fistula remains Remains in isolation No pain reported Review of Systems General: Fatigue, Malaise Pulmonary: Dyspnea Focused Exam Lactate Level 11/13/21 04:35: Lactic Acid Level 2.16*H 11/13/21 14:35: Lactic Acid Level 1.53 11/14/21 04:15: Lactic Acid Level 1.07 Lactic Acid Level Laboratory Tests Test 11/14/21 04:15 Lactic Acid Level 1.07 MMOL/L (0.50-2.00) Objective Exam Last Set of Vital Signs Vital Signs Date Time Temp Pulse Resp B/P (MAP) Pulse Ox O2 Delivery O2 Flow Rate FiO2 11/14/21 06:00 101 23 113/81 98 Room Air 11/14/21 04:00 36.2 11/13/21 19:36 0.00 11/12/21 18:53 21 Capillary Refill : I&O Intake and Output 11/14/21 00:00 Intake Total 3435 ml Output Total 625 ml Balance 2810 ml Intake Oral 975 ml IV Total 2460 ml Output Urine Total 400 ml Urine/Stool Mix 225 ml # Voids 2 # Bowel Movements 5 General: Alert, Oriented X3, Cooperative, No Acute Distress Lungs: Clear to Auscultation, Normal Air Movement Heart: Regular Rate, Normal S1, Normal S2, No Murmurs Psych/Mental Status: Mental Status NL, Mood NL Results Lab Laboratory Tests 11/13/21 07:42: Glucometer 107 11/13/21 11:42: Glucometer 159H 11/13/21 14:35: Lactic Acid Level 1.53, Troponin I 1.634*H 11/13/21 16:09: Glucometer 215H 11/13/21 20:28: Glucometer 233H 11/14/21 00:50: Glucometer 97 11/14/21 04:13: Glucometer 70 11/14/21 04:15: White Blood Count 5.5, Red Blood Count 3.11L, Hemoglobin 9.0L, Hematocrit 27L, Mean Corpuscular Volume 88, Mean Corpuscular Hemoglobin 29, Mean Corpuscular Hemoglobin Concent 33, Red Cell Distribution Width 18.7H, Platelet Count 165, Mean Platelet Volume 10.5, Immature Granulocyte % (Auto) 0, Neutrophils (%) (Auto) 64, Lymphocytes (%) (Auto) 29, Monocytes (%) (Auto) 5, Eosinophils (%) (Auto) 1, Basophils (%) (Auto) 1, Neutrophils # (Auto) 3.5, Lymphocytes # (Auto) 1.6, Monocytes # (Auto) 0.3, Eosinophils # (Auto) 0.0, Basophils # (Auto) 0.0, Immature Granulocyte # (Auto) 0.0, Sodium Level 138, Potassium Level 3.2L, Chloride Level 108H, Carbon Dioxide Level 20L, Anion Gap 10, Blood Urea Nitrogen 9, Creatinine 0.77, Estimat Glomerular Filtration Rate 80, BUN/Creatinine Ratio 12, Glucose Level 68L, Lactic Acid Level 1.07, Calcium Level 6.2L, Corrected Calcium 7.8L, Phosphorus Level 1.6L, Magnesium Level 1.6, Total Bilirubin 0.4, Aspartate Amino Transf (AST/SGOT) 45H, Alanine Aminotransferase (ALT/SGPT) 25, Alkaline Phosphatase 36L, Troponin I 1.231*H, Total Protein 4.9L, Albumin 2.0L 11/14/21 05:30: Blood Gas Puncture Site L RAD, Blood Gas Patient Temperature 36.9, Arterial Blood pH 7.52H, Arterial Blood Partial Pressure CO2 24L, Arterial Blood Partial Pressure O2 93, Arterial Blood HCO3 20L, Arterial Blood Total CO2 20.8L, Arterial Blood Oxygen Saturation 97, Arterial Blood Base Excess -2.6L, Donte Test YES-POS, Blood Gas Ventilator Setting NO, Blood Gas Inspired Oxygen ROOM AIR Assessment/Plan Assessment/Plan Assess & Plan/Chief Complaint Assessment: COVID infection in vaccinated and 1 booster Metabolic acidosis Tachycardia Fever Weakness Found down at home for 18 hours 11/11/21 Recent pelvic abscess s/p IR drain at [facility] 10/14/[address] Nieves 10/2021 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 01/22/2020 HTN HLP AF CKD Stage 3a s/p nephrectomy as a child DM2 Poor vascular access central line placed by Dr Vera Chest pain consulting Dr Rivera Type II OR Cardiomyopathy EF 20-25% Plan: ICU IVF Monitor HR EKG Consult Dr Vera for central line and Dr Rivera for chest pain and AF Diagnosis/Problems Diagnosis/Problems (1) COVID (2) Physical debility Status: Acute (3) Rhabdomyolysis Status: Acute (4) Hypoglycemia Status: Acute (5) Dehydration Status: Acute (6) Fall Status: Acute (7) Fistula (8) Ovarian cancer in remission (9) Solitary kidney (10) Myopathy (11) Hypothyroidism (12) Diabetes mellitus (13) Atrial fibrillation LORENZO MIMS DO Nov 14, 2021 06:49
--- NOTE | 2021-11-14 07:01 | Diagnostic Imaging Report ---
INDICATION: Dyspnea. Comparison is made with prior exam of 11/13/2021. FINDINGS: There is mild cardiomegaly. Some venous congestion. There is no pleural effusion or pneumothorax. The mediastinum is unremarkable. Central venous catheter has its tip in superior vena cava. IMPRESSION: Mild central pulmonary venous congestion. Dictated by: Dictated on workstation # [id number]
[2021-11-14] MEDS: DOCUSATE SODIUM 100 MG (COLACE) CAP PO SCH ×2 (08:46→21:04)
[2021-11-14] MEDS: ASPIRIN 81 MG CHEW (CHILDREN'S ASA) PO SCH (08:46)
[2021-11-14] MEDS: SACUBITRIL/VALSARTAN 24/26 MG (ENTRESTO) TABLET PO SCH ×2 (08:46→21:04)
[2021-11-14] MEDS: SPIRONOLACTONE 25 MG (ALDACTONE) TAB PO SCH (08:46)
[2021-11-14] MEDS: FUROSEMIDE 40 MG (LASIX) TAB PO SCH (08:46)
[2021-11-14] MEDS: SENNOSIDES 8.6 MG (SENOKOT) TAB PO SCH ×2 (08:47→21:04)
--- NOTE | 2021-11-14 09:15 | Tele-ICU Progress Note ---
Subjective Date Seen by a Provider: Nov 14, 2021 Time Seen by a Provider: 08:15 Subjective/Events-last exam This virtual visit was conducted using real time audio/video. Thank you for asking us to see this patient for Covid infection. Also anterolat. isch., debilitation. Recent events: none overnight. Getting out of bed. PE: VSS. O2 sat 97% on RA. HEENT: No obvious masses, adenopathy or JVD. Chest: Basal crackles on auscultation. CV: RRR S1 S2 No murmur or added sounds. Abd: Non-tender. Bowel sounds Y. : Unremarkable. [place] N. [employer]AM[employer] WORKER/psychiatric: Grossly intact. No obvious focal findings. Extremities: No edema. Capillary refill < 3 seconds. Skin: unremarkable. Results: Decreased Hb 8.9, Alb 2,4. CXR: clear. Available chart/ vitals / labs / images reviewed. Video assessment done using teleICU camera, rest of exam as per RN. A/P: Critical Care: critically ill patient. Cont. abx, bicarb., Wilbert. Discussed with JUAN CARLOS Narayanan. Asked RN to reach out to eICU if any questions or concerns later. Time spent with patient/coordination of care with other health professionals (mins): 20 Sepsis Event Evaluation Height, Weight, BMI Height: '" Weight: lbs. oz. kg; 20.27 BMI Method:Stated Focused Exam Lactate Level 11/13/21 04:35: Lactic Acid Level 2.16*H 11/13/21 14:35: Lactic Acid Level 1.53 11/14/21 04:15: Lactic Acid Level 1.07 Exam Exam Patient acknowledged, consented, and participated in this virtual visit which was conducted using real time audio/video Vital Signs Date Time Temp Pulse Resp B/P (MAP) Pulse Ox O2 Delivery O2 Flow Rate FiO2 11/14/21 08:00 104 10 90 Room Air 11/14/21 08:00 36.4 11/14/21 07:00 103 20 100/62 91 Room Air 11/14/21 07:00 101 11/14/21 06:00 101 23 113/81 98 Room Air 11/14/21 05:00 100 14 112/78 99 Room Air 11/14/21 04:00 36.2 11/14/21 04:00 109 20 99/66 97 Room Air 11/14/21 04:00 Room Air 11/14/21 03:00 100 28 90/67 94 Room Air 11/14/21 02:00 104 22 98/67 96 Room Air 11/14/21 01:00 107 23 107/78 96 Room Air 11/14/21 01:00 104 11/14/21 00:00 106 23 100/76 95 Room Air 11/13/21 23:59 Room Air 11/13/21 23:00 109 33 110/76 98 Room Air 11/13/21 22:00 111 21 113/82 98 Room Air 11/13/21 21:00 113 15 119/83 95 Room Air 11/13/21 20:00 Room Air 11/13/21 20:00 118 22 115/80 97 Room Air 11/13/21 20:00 36.1 11/13/21 19:36 100 Room Air 0.00 11/13/21 19:00 123 11/13/21 19:00 117 16 123/81 96 Room Air 11/13/21 18:00 112 21 124/91 95 Room Air 11/13/21 17:00 105 26 121/88 94 Room Air 11/13/21 16:40 36.2 11/13/21 16:25 Room Air 11/13/21 16:00 115 10 120/82 99 Room Air 11/13/21 15:00 116 23 123/86 95 Room Air 11/13/21 14:00 120 118/87 94 Room Air 11/13/21 13:00 110 16 114/78 91 Room Air 11/13/21 12:52 105 11/13/21 12:40 Room Air 11/13/21 12:00 102 25 104/81 92 Room Air 11/13/21 11:00 122 25 120/82 91 Room Air 11/13/21 10:00 126 25 112/74 93 Room Air I & O 11/14/21 07:00 Intake Total 3335 ml Output Total 825 ml Balance 2510 ml Height & Weight Height: '" Weight: lbs. oz. kg; 20.27 BMI Method:Stated General Appearance: Chronically ill HEENT: PERRL/EOMI, Normal ENT Inspection, Pharynx Normal Neck: Full Range of Motion, Normal Inspection, Non Tender, Supple, Carotid Bruit Respiratory: Chest Non Tender, Lungs Clear, Normal Breath Sounds, No Accessory Muscle Use, No Respiratory Distress Cardiovascular: Regular Rate, Rhythm, No Edema, No Gallop, No JVD, No Murmur, Normal Peripheral Pulses, Tachycardia Extremity: Normal Capillary Refill, Normal Inspection, Normal Range of Motion, Non Tender, No Calf Tenderness, No Pedal Edema Neurologic/Psychiatric: Alert, Oriented x3, No Motor/Sensory Deficits, 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 Skin: Normal Color, Warm/Dry Lymphatic: No Adenopathy Results Lab Laboratory Tests 11/12/21 18:28 11/13/21 04:35 11/14/21 04:15 Assessment/Plan Assessment/Plan See free text. Critical Care: Critically Ill Patient EULALIA VALENZUELA MD Nov 14, 2021 09:15
--- NOTE | 2021-11-14 14:17 | Progress Note - Cardiology ---
Cardiology SOAP Progress Note Subjective: Notes gen weakness and malaise Does not report focal weakness Denies shortness of breath at rest Denies cp or palp No syncope since admission States did not have syncope at home (at time of admission); just was weak and fell Objective: I&O/Vital Signs 11/14/21 11/14/21 11/14/21 11/14/21 03:00 04:00 04:00 04:00 Temp 36.2 Pulse 100 109 Resp 28 20 B/P (MAP) 90/67 99/66 Pulse Ox 94 97 O2 Delivery Room Air Room Air Room Air 11/14/21 11/14/21 11/14/21 11/14/21 05:00 06:00 07:00 07:00 Pulse 100 101 101 103 Resp 14 23 20 B/P (MAP) 112/78 113/81 100/62 Pulse Ox 99 98 91 O2 Delivery Room Air Room Air Room Air 11/14/21 11/14/21 11/14/21 11/14/21 08:00 08:00 08:40 09:00 Temp 36.4 Pulse 104 89 Resp 10 23 B/P (MAP) 179/87 Pulse Ox 90 92 O2 Delivery Room Air Room Air Room Air 11/14/21 11/14/21 11/14/21 11/14/21 10:00 11:00 11:32 11:55 Temp 36.0 Pulse 104 92 Resp 30 14 Pulse Ox 92 97 O2 Delivery Room Air Room Air Room Air 11/14/21 11/14/21 11/14/21 11/14/21 12:00 13:00 13:00 14:00 Pulse 92 93 83 96 Resp 24 12 22 B/P (MAP) 91/63 Pulse Ox 99 97 98 O2 Delivery Room Air Room Air Room Air 11/14/21 00:00 Intake Total 910 ml Output Total 400 ml Balance 510 ml Constitutional: AAO x 3, well-developed, other (thin appearing) Respiratory: No accessory muscle use; other (fair to good, bilateral air entry) Cardiovascular: regular rate-rhythm, S1 and S2, systolic murmur (soft DAVIS at card base) Gastrointestional: No tender; soft; No guarding, No rebound; audible bowel sounds Extremities: No clubbing, No cyanosis, No significant edema Neurologic/Psychiatric: oriented x 3, other (moves all limbs equally) Skin: warm/dry; No rash, No ulcerations Results/Procedures: Labs Laboratory Tests 11/13/21 14:35: Lactic Acid Level 1.53, Troponin I 1.634*H 11/13/21 16:09: Glucometer 215H 11/13/21 20:28: Glucometer 233H 11/14/21 00:50: Glucometer 97 11/14/21 04:13: Glucometer 70 11/14/21 04:15: White Blood Count 5.5, Red Blood Count 3.11L, Hemoglobin 9.0L, Hematocrit 27L, Mean Corpuscular Volume 88, Mean Corpuscular Hemoglobin 29, Mean Corpuscular Hemoglobin Concent 33, Red Cell Distribution Width 18.7H, Platelet Count 165, Mean Platelet Volume 10.5, Immature Granulocyte % (Auto) 0, Neutrophils (%) (Auto) 64, Lymphocytes (%) (Auto) 29, Monocytes (%) (Auto) 5, Eosinophils (%) (Auto) 1, Basophils (%) (Auto) 1, Neutrophils # (Auto) 3.5, Lymphocytes # (Auto) 1.6, Monocytes # (Auto) 0.3, Eosinophils # (Auto) 0.0, Basophils # (Auto) 0.0, Immature Granulocyte # (Auto) 0.0, Sodium Level 138, Potassium Level 3.2L, Chloride Level 108H, Carbon Dioxide Level 20L, Anion Gap 10, Blood Urea Nitrogen 9, Creatinine 0.77, Estimat Glomerular Filtration Rate 80, BUN/Creatinine Ratio 12, Glucose Level 68L, Lactic Acid Level 1.07, Calcium Level 6.2L, Corrected Calcium 7.8L, Phosphorus Level 1.6L, Magnesium Level 1.6, Total Bilirubin 0.4, Aspartate Amino Transf (AST/SGOT) 45H, Alanine Aminotransferase (ALT/SGPT) 25, Alkaline Phosphatase 36L, Troponin I 1.231*H, Total Protein 4.9L, Albumin 2.0L 11/14/21 05:30: Blood Gas Puncture Site L RAD, Blood Gas Patient Temperature 36.9, Arterial Blood pH 7.52H, Arterial Blood Partial Pressure CO2 24L, Arterial Blood Partial Pressure O2 93, Arterial Blood HCO3 20L, Arterial Blood Total CO2 20.8L, Arterial Blood Oxygen Saturation 97, Arterial Blood Base Excess -2.6L, Donte Test YES-POS, Blood Gas Ventilator Setting NO, Blood Gas Inspired Oxygen ROOM AIR 11/14/21 06:54: Glucometer 117H 11/14/21 07:47: Glucometer 100 11/14/21 11:47: Glucometer 206H Microbiology 11/12/21 MRSA Screen - Final, Complete MRSA not isolated Laboratory Tests 11/12/21 18:28 11/13/21 04:35 11/14/21 04:15 A/P: Assessment: Ac systolic CHF (HFrEF) due to ischemic cardiomyopathy - Echo on 11/13/21: LVEF 20-25%, anteroseptal and apical akinesis, mod enlargement of LA, grade 2 diastolic dysfunction, mild MR, PASP 35-40 mmHg Mild troponin elevation - likely type 2 [place] due to ac systolic CHF Covid-19 Gen weakness and malaise after long hospitalization of pelvic abscess and sepsis (September - October 2021) Transient episode of atrial fibrillation in March 2020 treated with electrical cardioversion by Dr Gaviria. No recurrence reported. 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 difficile colitis; subsequent ileostomy reversal in 2020 H/o hypertension and hyperlipidemia Diabetes mellitus II, followed and managed by primary care physician History of solitary kidney and history of ovarian cancer. Hypothyroidism, followed and managed by primary care physician Rheumatoid arthritis and osteoarthritis Carotid artery stenosis followed by Dr Claudio Plan: * Continue ASA * Continue heart failure meds (see orders) * DVT prophylaxis with enoxaparin * Replenish electrolytes * Monitor labs closely * Dr Muniz managing acute Covid-19 * I discussed her CV issues with . JESSIE Isidro MD FACP FAC CCDS Nov 14, 2021 14:17
[2021-11-14] MEDS: ENOXAPARIN 40 MG/0.4 ML (LOVENOX) SYR SC SCH (17:24)
[2021-11-14] MEDS ORDERED: DEXTROSE 50% 50 ML (IMS) SYR ONE (19:05)
[2021-11-14] MEDS: DEXTROSE 50% 50 ML (IMS) SYR IV ONE ×2 (19:13→19:23)
[2021-11-15] MEDS: inSUlin ASPART (NovoLOG) 1 UNIT/0.01 ML (CHARGE PER UNIT) SQ SCH ×3 (03:35→12:21)
[2021-11-15 04:50] LABS: BASOPHILS % (AUTO) 1 % (0-10); EOSINOPHILS # (AUTO) 0.1 10^3/uL (0.0-0.3); EOSINOPHILS % (AUTO) 2 % (0-10); HEMATOCRIT 26 % (35-52); HEMOGLOBIN 8.6 g/dL (11.5-16.0); LYMPHOCYTES # (AUTO) 1.5 10^3/uL (1.0-4.0); LYMPHOCYTES % (AUTO) 35 % (12-44); MEAN CORPUSCULAR HEMOGLOBIN 29 pg (25-34); MEAN CORPUSCULAR HGB CONC 33 g/dL (32-36); MEAN CORPUSCULAR VOLUME 88 fL (80-99); MEAN PLATELET VOLUME 10.8 fL (9.0-12.2); MONOCYTES # (AUTO) 0.2 10^3/uL (0.0-1.0); MONOCYTES % (AUTO) 5 % (0-12); NEUTROPHILS # (AUTO) 2.5 10^3/uL (1.8-7.8); NEUTROPHILS % (AUTO) 58 % (42-75); PLATELET COUNT 122 10^3/uL (130-400); WHITE BLOOD COUNT 4.3 10^3/uL (4.3-11.0)
[2021-11-15 05:03] LABS: ALBUMIN 1.9 GM/DL (3.2-4.5); POTASSIUM 3.4 MMOL/L (3.6-5.0)
[2021-11-15 05:04] LABS: CALCIUM 6.1 MG/DL (8.5-10.1)
[2021-11-15 05:05] LABS: TOTAL PROTEIN 4.6 GM/DL (6.4-8.2)
[2021-11-15 05:07] LABS: BILIRUBIN,TOTAL 0.4 MG/DL (0.1-1.0)
[2021-11-15 05:09] LABS: CREATININE SERUM 0.79 MG/DL (0.60-1.30); PHOSPHORUS 1.2 MG/DL (2.3-4.7)
[2021-11-15 05:12] LABS: MAGNESIUM 1.9 MG/DL (1.6-2.4)
[2021-11-15] MEDS: MAGNESIUM 1 GM/100 ML IVPB 100 ML IV SCH (05:13)
[2021-11-15] MEDS: POTASSIUM CL 10MEQ/50ML IVPB 50 ML IV SCH (05:13)
[2021-11-15] MEDS: KCL 20 MEQ TAB (K-DUR) PO SCH (05:14)
[2021-11-15 05:20] LABS: ABG BASE EXCESS 2.5 MMOL/L (-2.5-2.5); ABG OXYGEN SATURATION 92 % (94-100); ABG PCO2 32 MMHG (35-45); ABG PH 7.51 (7.37-7.43); ABG PO2 57 MMHG (79-93); ABG TCO2 26.4 MMOL/L (21.0-31.0); ALLENS TEST YES-POS; INSPIRED O2 ROOM AIR; PATIENT TEMP 36.8; VENTILATOR NO
[2021-11-15] MEDS: SODIUM BICARBONATE 8.4% SYR 150 MEQ in D5W 1000 ML IV SOLUTION 1,000 ML IV SCH (05:56)
[2021-11-15] MEDS ORDERED: KCL 20 MEQ TAB (K-DUR) PO ONE (06:00)
[2021-11-15] MEDS: SENNOSIDES 8.6 MG (SENOKOT) TAB PO SCH ×2 (07:41→21:43)
[2021-11-15] MEDS: DOCUSATE SODIUM 100 MG (COLACE) CAP PO SCH ×2 (07:41→21:43)
--- NOTE | 2021-11-15 08:27 | Diagnostic Imaging Report ---
EXAM: CHEST 1 VIEW, AP/PA ONLY INDICATION: COVID positive. Pneumonia. COMPARISON: 11/14/2021. FINDINGS: Left subclavian CVC tip mid SVC. Normal heart size and central pulmonary vascularity. Atelectasis or infiltrate right lung base has progressed since the prior exam. No pleural effusion or pneumothorax. No acute osseous findings. IMPRESSION: Interval progression of atelectasis or infiltrate right lung base. Dictated by: Dictated on workstation # [id number]
[2021-11-15] MEDS: FUROSEMIDE 40 MG (LASIX) TAB PO SCH (08:48)
[2021-11-15] MEDS: SPIRONOLACTONE 25 MG (ALDACTONE) TAB PO SCH (08:49)
[2021-11-15] MEDS: ASPIRIN 81 MG CHEW (CHILDREN'S ASA) PO SCH (08:49)
[2021-11-15] MEDS: SACUBITRIL/VALSARTAN 24/26 MG (ENTRESTO) TABLET PO SCH ×2 (08:49→21:30)
--- NOTE | 2021-11-15 09:33 | Progress Note - Cardiology ---
Cardiology SOAP Progress Note Subjective: Sitting up in bed No c/o CP Feels breathing is better today No c/o palpitations Objective: I&O/Vital Signs 11/16/21 11/17/21 11/17/21 11/17/21 23:11 03:22 03:54 06:32 Temp 37.2 37.0 Pulse 101 105 97 98 Resp 18 18 B/P (MAP) 100/67 (78) 110/75 (87) Pulse Ox 99 98 O2 Delivery Room Air Room Air 11/17/21 11/17/21 11/17/21 11/17/21 07:15 07:38 08:28 08:39 Temp 37.6 Pulse 102 99 Resp 18 B/P (MAP) 103/64 (77) Pulse Ox 97 96 96 O2 Delivery Room Air Room Air Room Air FiO2 21 11/17/21 00:00 Intake Total 680 ml Balance 680 ml Constitutional: AAO x 3, well-developed, other (thin appearing) Respiratory: No accessory muscle use; other (fair to good, bilateral air entry, diminished bases) Cardiovascular: regular rate-rhythm, S1 and S2, systolic murmur (soft DAVIS at card base) Gastrointestional: No tender; soft; No guarding, No rebound; audible bowel sounds Extremities: No clubbing, No cyanosis, No significant edema Neurologic/Psychiatric: oriented x 3, other (moves all limbs equally) Skin: warm/dry; No rash, No ulcerations Results/Procedures: Labs Laboratory Tests 11/16/21 11:04: Glucometer 242H 11/16/21 15:22: Glucometer 155H 11/16/21 20:32: Glucometer 162H 11/17/21 03:19: Glucometer 92 11/17/21 05:08: White Blood Count 5.8, Red Blood Count 3.19L, Hemoglobin 9.2L, Hematocrit 28L, Mean Corpuscular Volume 89, Mean Corpuscular Hemoglobin 29, Mean Corpuscular Hemoglobin Concent 32, Red Cell Distribution Width 17.7H, Platelet Count 152, Mean Platelet Volume 11.5, Immature Granulocyte % (Auto) 0, Neutrophils (%) (Auto) 61, Lymphocytes (%) (Auto) 34, Monocytes (%) (Auto) 4, Eosinophils (%) (Auto) 1, Basophils (%) (Auto) 0, Neutrophils # (Auto) 3.6, Lymphocytes # (Auto) 2.0, Monocytes # (Auto) 0.2, Eosinophils # (Auto) 0.0, Basophils # (Auto) 0.0, Immature Granulocyte # (Auto) 0.0, Sodium Level 139, Potassium Level 3.9, Chloride Level 104, Carbon Dioxide Level 21, Anion Gap 14, Blood Urea Nitrogen 11, Creatinine 1.20, Estimat Glomerular Filtration Rate 47, BUN/Creatinine Ratio 9, Glucose Level 107H, Calcium Level 6.2L, Corrected Calcium 7.6L, Magnesium Level 1.7, Total Bilirubin 0.4, Aspartate Amino Transf (AST/SGOT) 32, Alanine Aminotransferase (ALT/SGPT) 18, Alkaline Phosphatase 56, Total Protein 5.4L, Albumin 2.3L Microbiology 11/12/21 MRSA Screen - Final, Complete MRSA not isolated Procedures NAME: NATHANIEL CAMARILLO [facility] REC#: [id number] PT STATUS: ADM IN : 1945 PHYSICIAN: LORENZO MIMS DO ADMIT DATE: 11/12/21/ICU Signed Date of Exam:11/15/21 CHEST 1 VIEW, AP/PA ONLY EXAM: CHEST 1 VIEW, AP/PA ONLY INDICATION: COVID positive. Pneumonia. COMPARISON: 11/14/2021. FINDINGS: Left subclavian CVC tip mid SVC. Normal heart size and central pulmonary vascularity. Atelectasis or infiltrate right lung base has progressed since the prior exam. No pleural effusion or pneumothorax. No acute osseous findings. IMPRESSION: Interval progression of atelectasis or infiltrate right lung base. Dictated by: Dictated on workstation # [id number] Dict: 11/15/2121 Trans: 11/15/21 0859 CV [id number] Interpreted by: PIERO CLAY MD Electronically signed by: PIERO CLAY MD 11/15/21 0859 A/P: Assessment: Ac systolic CHF (HFrEF) due to ischemic cardiomyopathy - Echo on 11/13/21: LVEF 20-25%, anteroseptal and apical akinesis, mod e nlargement of LA, grade 2 diastolic dysfunction, mild MR, PASP 35-40 mmHg Mild troponin elevation - likely type 2 [place] due to ac systolic CHF Covid-19 Gen weakness and malaise after long hospitalization of pelvic abscess and sepsis (September - October 2021) Transient episode of atrial fibrillation in March 2020 treated with electrical cardioversion by Dr Gaviria. No recurrence reported. 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 difficile colitis; subsequent ileostomy reversal in 2020 H/o hypertension and hyperlipidemia Diabetes mellitus II, followed and managed by primary care physician History of solitary kidney and history of ovarian cancer. Hypothyroidism, followed and managed by primary care physician Rheumatoid arthritis and osteoarthritis Carotid artery stenosis followed by Dr Claudio Plan: * Continue ASA * Continue heart failure meds - titrate as tolerated * DVT prophylaxis with enoxaparin * Replenish electrolytes * Monitor labs closely * Dr Mims managing acute Covid-19 * I discussed her CV issues with . NETTA Purdy Nov 15, 2021 09:33
--- NOTE | 2021-11-15 12:26 | Progress Note ---
ONOFRE MCDUFFIE A MED STUDENT 11/15/21 1226: Subjective Date Seen by a Provider: Nov 15, 2021 Time Seen by a Provider: 08:00 Subjective/Events-last exam Pt lying in bed comfortably this morning. Pt states she is feeling better today and has more of an appetite. She reports she is having liquid BMs daily. Pt denies any concerns at this time. Review of Systems General: No Chills, No Fatigue HEENT: No Head Aches, No Visual Changes Pulmonary: No Dyspnea, No Cough Cardiovascular: No: Chest Pain, Palpitations Gastrointestinal: No: Nausea, Vomiting Genitourinary: No Dysuria, No Frequency Musculoskeletal: No: neck pain, shoulder pain Neurological: No: Weakness, Numbness Focused Exam Lactate Level 11/13/21 04:35: Lactic Acid Level 2.16*H 11/13/21 14:35: Lactic Acid Level 1.53 11/14/21 04:15: Lactic Acid Level 1.07 Objective Exam Last Set of Vital Signs Vital Signs Date Time Temp Pulse Resp B/P (MAP) Pulse Ox O2 Delivery O2 Flow Rate FiO2 11/15/21 09:00 100 15 107/76 96 Room Air 11/15/21 08:00 37.4 11/13/21 19:36 0.00 11/12/21 18:53 21 Capillary Refill : I&O Intake and Output 11/15/21 00:00 Intake Total 1925 ml Output Total 425 ml Balance 1500 ml Intake Oral 1925 ml Output Urine Total 425 ml # Voids 10 # Bowel Movements 13 General: Alert, Oriented X3 HEENT: Atraumatic, PERRLA Neck: Supple, No JVD Lungs: Other (Coarse breath sounds bilaterally) Heart: Regular Rate, Normal S1, Normal S2 Abdomen: Normal Bowel Sounds, Other (ileostomy bag with drain) Extremities: No Clubbing, No Cyanosis, No Edema Skin: No Rashes, No Breakdown Neuro: Normal Speech, Normal Tone Psych/Mental Status: Mental Status NL Results Lab Laboratory Tests 11/14/21 16:23: Glucometer 100 11/14/21 19:02: Glucometer 26*L 11/14/21 19:43: Glucometer 249H 11/14/21 22:05: Glucometer 178H 11/14/21 23:20: Glucometer 110 11/15/21 03:22: Glucometer 82 11/15/21 04:35: White Blood Count 4.3, Red Blood Count 2.95L, Hemoglobin 8.6L, Hematocrit 26L, Mean Corpuscular Volume 88, Mean Corpuscular Hemoglobin 29, Mean Corpuscular Hemoglobin Concent 33, Red Cell Distribution Width 18.4H, Platelet Count 122L, Mean Platelet Volume 10.8, Immature Granulocyte % (Auto) 0, Neutrophils (%) (Auto) 58, Lymphocytes (%) (Auto) 35, Monocytes (%) (Auto) 5, Eosinophils (%) (Auto) 2, Basophils (%) (Auto) 1, Neutrophils # (Auto) 2.5, Lymphocytes # (Auto) 1.5, Monocytes # (Auto) 0.2, Eosinophils # (Auto) 0.1, Basophils # (Auto) 0.0, Immature Granulocyte # (Auto) 0.0, Sodium Level 136, Potassium Level 3.4L, Chloride Level 104, Carbon Dioxide Level 23, Anion Gap 9, Blood Urea Nitrogen 10, Creatinine 0.79, Estimat Glomerular Filtration Rate 78, BUN/Creatinine Ratio 13, Glucose Level 89, Calcium Level 6.1L, Corrected Calcium 7.8L, Phosphorus Level 1.2L, Magnesium Level 1.9, Total Bilirubin 0.4, Aspartate Amino Transf (AST/SGOT) 39H, Alanine Aminotransferase (ALT/SGPT) 22, Alkaline Phosphatase 39L , Total Protein 4.6L, Albumin 1.9L 11/15/21 05:05: Blood Gas Puncture Site RIGHT RADIAL, Blood Gas Patient Temperature 36.8, Arterial Blood pH 7.51H, Arterial Blood Partial Pressure CO2 32L, Arterial Blood Partial Pressure O2 57L, Arterial Blood HCO3 26, Arterial Blood Total CO2 26.4, Arterial Blood Oxygen Saturation 92L, Arterial Blood Base Excess 2.5, Donte Test YES-POS, Blood Gas Ventilator Setting NO, Blood Gas Inspired Oxygen ROOM AIR 11/15/21 08:46: Glucometer 106 Microbiology 11/12/21 MRSA Screen - Final, Complete MRSA not isolated Assessment/Plan Assessment/Plan Assess & Plan/Chief Complaint COVID infection with vaccination and 1 booster -Central line placed -ABG 7.51//57 -CXR showed interval progression of atelectasis or infiltrate in Right lung base -Transfer to 4th floor S/p ileostomy reversal with fistula and abscess -General surgery following, appreciate their recs -Drain still in place from [facility] IR 10/14 -Levofloxacin CHF -Echo EF 20-25% -Lasix and spironolactone Type II [place] -Cardiology following, appreciate their recs Afib -Lovenox HTN -Well controlled currently Diabetes -SSI CKD3a -BUN/Cr wnl Recent hospitalization at [place] 10/20-11/11 following stay at [facility] 10/14 for pelvic abscess drainage. Diet: Regular DVT prophylaxis: Lovenox and SCDs NENA MIMS DO 11/16/21 0847: Subjective Review of Systems General: Fatigue, Malaise Pulmonary: Dyspnea Cardiovascular: Chest Pain Objective Exam General: Alert, Oriented X3, Cooperative, No Acute Distress Lungs: Clear to Auscultation, Normal Air Movement Heart: Regular Rate, Normal S1, Normal S2, No Murmurs Psych/Mental Status: Mental Status NL, Mood NL Assessment/Plan Assessment/Plan Assess & Plan/Chief Complaint Moved to fourth floor Supportive care Supervisory-Addendum Brief Verification & Attestation Participated in pt care: history, MDM, physical Personally performed: exam, history, MDM, supervision of care Care discussed with: Medical Student Procedures: n/a Results interpretation: Verified all documentation Verification and Attestation of Medical Student E/M Service A medical student performed and documented this service in my presence. I reviewed and verified all information documented by the medical student and made modifications to such information, when appropriate. I personally performed the physical exam and medical decision making. Nena Mims Nov 16, 2021,08:47 ONOFRE MCDUFFIE MED STUDENT Nov 15, 2021 12:26 NENA MIMS DO Nov 16, 2021 08:47
--- NOTE | 2021-11-15 13:55 | Physical Therapy Evaluation ---
PT Evaluation-General Medical Diagnosis Admission Date Nov 12, 2021 at 16:45 Medical Diagnosis: Covid Onset Date: Nov 12, 2021 Therapy Diagnosis Therapy Diagnosis: debility/weakness Precautions Precautions/Isolations: Airborne Isolation, Contact Isolation, Droplet Isolation, Fall Prevention Referral Physician: Flavio Reason for Referral: Evaluation/Treatment Medical History Pertinent Medical History: Atrial Fib, DM, HTN, Hypothroidism, Renal Insufficiency Current History Transferred to ICU from ARU due to fever, tachycardia and Covid Reviewed History: Yes Social History Home: Single Level Prior Prior Level of Function SCALE: Activities may be completed with or without assistive devices. 7-Zrzyfjyfis-saqnptf completes the activity by him/herself with no assistance from a helper. 5-Set-up or Clean-up Assistance-helper sets up or cleans up; patient completes activity. [place] assists only prior to or following the activity. 4-Supervision or Touching Assistance-helper provides verbal cues and/or touching/steadying and/or contact guard assistance as patient completes activity. Assistance may be provided throughout the activity or intermittently. 3-Partial/Moderate Assistance-helper does LESS THAN HALF the effort. [place] lifts, holds or supports trunk or limbs, but provides less than half the effort. 2-Substantial/Maximal Assistance-helper does MORE THAN HALF the effort. [place] lifts or holds trunk or limbs and provides more than half the effort. 9-Fwhhcwhly-gctbbl does ALL the effort. Patient does none of the effort to complete the activity. Or, the assistance of 2 or more helpers is required for the patient to complete the activity. If activity was not attempted, code reason: 7-Patient Refused. 9-Not Applicable-not attempted and the patient did not perform the activity before the current illness, exacerbation or injury. 10-Not Attempted due to Environmental Limitations-(lack of equipment, weather restraints, etc.). 88-Not Attempted due to Medical Conditions or Safety Concerns. Bed Mobility: 6 Transfers (B,C,W/C): 6 Gait: 6 Stairs: 6 Indoor Mobility (Ambulation): Independent Stairs: Independent PT Evaluation-Current Subjective Patient reports she is feeling so much better. Agrees to therapy. Objective Patient Orientation: Normal For Age Attachments: IV ROM/Strength ROM Lower Extremities bilateral LE WFL Strength Lower Extremities 3+/5 grossly bilateral LE Integumentary/Posture Bowel Incontinence: No Bladder Incontinence: No Posture WFL Neuromuscular (Tone, Coordination, Reflexes) grossly intact Sensory Vision: Wears Glasses Hearing: Functional Transfers Lying to Sitting/Side of Bed(Q: 4 Sit to Stand (QC): 4 Chair/Ulx-te-Jhuva Xfer(QC): 4 Gait Mode of Locomotion: Walk Anticipated Mode of Locomotion: Walk Walk 10 feet (QC): 4 Walk 50 ft with 2 Turns(QC): 4 Walk 150 ft (QC): 88 Distance: 60' Gait Assistive Device: FWW Comments/Gait Description safe and functional with no deviation Balance Sitting Static: Normal Sitting Dynamic: Normal Standing Static: Good Standing Dynamic: Good Assessment/Needs 76 y.o. female, will be seen by skilled PT to address functional strength and mobility to improve current LOF to safely return to home at maximum LOF. Rehab Potential: Fair PT Automotive Service Writer Goals Care Home Goals PT Automotive Service Writer Goals Time Frame: Nov 27, 2021 Roll Left & Right (QC): 6 Sit to Lying (QC): 6 Lying-Sitting on Side/Bed(QC): 6 Sit to Stand (QC): 6 Chair/Rvb-ga-Yzzjh Xfer(QC): 6 Toilet Transfer (QC): 6 Walk 10 feet (QC): 6 Walk 50ft with 2 Turns (QC): 6 Walk 150 ft (QC): 6 PT Plan Problem List Problem List: Activity Tolerance, Functional Strength, Safety, Balance, Gait, Transfer Treatment/Plan Treatment Plan: Continue Plan of Care Treatment Plan: Bed Mobility, Education, Functional Activity Maikel, Functional Strength, Gait, Safety, Therapeutic Exercise, Transfers Treatment Duration: Nov 27, 2021 Frequency: 6 times per week Estimated Hrs Per Day: .25 hour per day Patient and/or Family Agrees t: Yes Time/GCodes Time In: 1321 Time Out: 1331 Total Billed Treatment Time: 10 Total Billed Treatment 1 visit EVModC 10 min ARELI JENNINGS PT Nov 15, 2021 13:55
--- NOTE | 2021-11-15 14:13 | Occupational Therapy Eval ---
OT Evaluation-General/PLF Medical Diagnosis Admission Date Nov 12, 2021 at 16:45 Medical Diagnosis: Covid Onset Date: Nov 12, 2021 Therapy Diagnosis Therapy Diagnosis: decreased ADL status Precautions Precautions/Isolations: Airborne Isolation, Contact Isolation, Droplet Isolation, Fall Prevention Referral Physician: Flavio Medical History Pertinent Medical History: Atrial Fib, DM, HTN, Hypothroidism, Renal Insuf ficiency Additional Medical History afib, HTN, ovarian cancer, solitary kidney, RA, DM, hypothyroidism, Current History ED 11/11 d/t fall (18 hours down), recent 3 week course at [facility] (10/20-11/11 following stay at [facility] for pelvic abscess drainage 10/14). transferred to ARU, found to have fever, tachycardia, sepsis and tested positive for COVID. Pt transferred to ICU for higher level of care. Social History Home: Single Level Current Living Status: Alone ADL-Prior Level of Function SCALE: Activities may be completed with or without assistive devices. 0-Ofdzluiofd-jlolvow completes the activity by him/herself with no assistance from a helper. 5-Set-up or Clean-up Assistance-helper sets up or cleans up; patient completes activity. [place] assists only prior to or following the activity. 4-Supervision or Touching Assistance-helper provides verbal cues and/or touching/steadying and/or contact guard assistance as patient completes activity. Assistance may be provided throughout the activity or intermittently. 3-Partial/Moderate Assistance-helper does LESS THAN HALF the effort. [place] lifts, holds or supports trunk or limbs, but provides less than half the effort. 2-Substantial/Maximal Assistance-helper does MORE THAN HALF the effort. [place] lifts or holds trunk or limbs and provides more than half the effort. 7-Fuukuvonu-dxzuwn does ALL the effort. Patient does none of the effort to complete the activity. Or, the assistance of 2 or more helpers is required for the patient to complete the activity. If activity was not attempted, code reason: 7-Patient Refused. 9-Not Applicable-not attempted and the patient did not perform the activity before the current illness, exacerbation or injury. 10-Not Attempted due to Environmental Limitations-(lack of equipment, weather restraints, etc.). 88-Not Attempted due to Medical Conditions or Safety Concerns. ADL PLOF Comments Pt reports IND with ADLs and functional mobility at PLOF, using 4WW Self Care: Independent Functional Cognition: Independent DME/Equipment: Bath Bench, Tub/Shower OT Current Status Subjective Pt in bed, agreeable to OT Tx. Mental Status/Objective Patient Orientation: Person, Place Attachments: IV Current Upper Extremity ROM WFL Upper Extremity Strength grossly 3+/5 ADL-Treatment Eating (QC): 6 (Per nursing report.) Other Treatments Pt in bed, transferred supine to sit EOB, SBA. Pt used FWW to perform functional mobility around her room, SBA, 60'. Pt transferred to recliner. Post tx, pt in recliner, call light in reach and all needs met. Education OT Patient Education: Correct positioning, Energy conservation, Modified ADL techniques, Progress toward Goal/Update tx plan, Purpose of tx/functional activities, Rehab process Teaching Recipient: Patient Teaching Methods: Discussion Response to Teaching: Verbalize Understanding OT Skilled Nursing Goals Skilled Nursing Goals Time Frame: Nov 26, 2021 Eating (QC): 6 Oral Hygiene (QC): 6 Toileting Hygiene (QC): 6 Shower/Bathe Self (QC): 6 Upper Body Dressing (QC): 6 Lower Body Dressing (QC): 6 On/Off Footwear (QC): 6 Additional Goals: 1-Demonstrate ADL Tasks, 2-Verbalize Understanding, 3- ImproveStrength/Maikel 1=Demonstrate adherence to instructed precautions during ADL tasks. 2=Patient will verbalize/demonstrate understanding of assistive devices/modifications for ADL. 3=Patient will improve strength/tolerance for activity to enable patient to perform ADL's. OT Education/Plan Problem List/Assessment Assessment: Decreased Activ Tolerance, Decreased UE Strength, Impaired Funct Balance, Impaired I ADL's, Impaired Self-Care Skills Pt would benefit from skilled OT services in order to increase BUE Strength and activity tolerance, and increase safety and independence with ADLs and functional mobility in order to maximize LOF for safe return home. Discharge Recommendations Plan/Recommendations: Continue POC Treatment Plan/Plan of Care Patient would benefit from OT for education, treatment and training to promote independence in ADL's, mobility, safety and/or upper extremity function for ADL's. Plan of Care: ADL Retraining, Functional Mobility, UE Funct Exercise/Act Treatment Duration: Nov 26, 2021 Frequency: 3 times per week (3-5 times per week) Estimated Hrs Per Day: .25 hour per day Agreement: Yes Rehab Potential: Fair Time/GCodes Start Time: 13:24 Stop Time: 13:35 Total Time Billed (hr/min): 11 Billed Treatment Time 1, DELANEY NEFF OT Nov 15, 2021 14:13
--- NOTE | 2021-11-15 14:40 | Tele-ICU Progress Note ---
Subjective Date Seen by a Provider: Nov 15, 2021 Time Seen by a Provider: 11:00 Subjective/Events-last exam (Tele-ICU Physician , Progress Note ) Available chart/ vitals / labs / Images reviewed Video assessment done using teleICU camera, rest of exam as per RN Discussed with RN , EXAM PER RN Events overnight : Afebrile FiO2 - ra I/O = Drips: bicarb gtt Pressors: , hemodynamically stable Consultants: cards Sx A/P COVID infection -vaccinated and 1 booster - on ra , not on RMDSV or steroids Ac systolic CHF (HFrEF) due to ischemic cardiomyopathy - Echo on 11/13/21: LVEF 20-25%, anteroseptal and apical akinesis, mod enlargement of LA, grade 2 diastolic dysfunction, mild MR, PASP 35-40 mmHg ID - on levofloxacin Recent pelvic abscess s/p IR drain at [facility] 10/14/21 - h/o C. 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 Lines : L Scl (Central Line Necessity Reviewed) [place]: OG: Nutrition: Analgesia: Anxiety/ delirium VTE Prophylaxis: arley 40 Stress Ulcer Prophylaxis: na Plans in collaboration with bedside consultants and IM MDs. Discussed with RN to reach out if any questions or concerns A total of 15 minutes of critical care time was devoted to this patient today, required to treat and/or prevent further deterioration of critical care condition ( as above) . Sepsis Event Evaluation Height, Weight, BMI Height: '" Weight: lbs. oz. kg; 20.27 BMI Method:Stated Focused Exam Lactate Level 11/13/21 04:35: Lactic Acid Level 2.16*H 11/13/21 14:35: Lactic Acid Level 1.53 11/14/21 04:15: Lactic Acid Level 1.07 Exam Exam Patient acknowledged, consented, and participated in this virtual visit which was conducted using real time audio/video Vital Signs Date Time Temp Pulse Resp B/P (MAP) Pulse Ox O2 Delivery O2 Flow Rate FiO2 11/15/21 14:35 36.4 95 18 103/68 97 Room Air 11/15/21 13:00 72 11/15/21 12:00 Room Air 11/15/21 12:00 35.6 11/15/21 12:00 90 16 90/71 97 Room Air 11/15/21 11:00 89 27 87/62 97 Room Air 11/15/21 10:00 110 26 88/60 88 Room Air 11/15/21 09:00 100 15 107/76 96 Room Air 11/15/21 08:00 91 28 109/67 96 Room Air 11/15/21 08:00 37.4 11/15/21 08:00 Room Air 11/15/21 07:00 111 11/15/21 07:00 109 22 108/74 99 Room Air 11/15/21 06:00 104 16 114/79 97 Room Air 11/15/21 05:00 104 15 108/74 97 Room Air 11/15/21 04:00 Room Air 11/15/21 04:00 104 31 108/75 91 Room Air 11/15/21 03:40 36.4 11/15/21 03:00 98 12 99/75 97 Room Air 11/15/21 02:00 98 17 100/68 97 Room Air 11/15/21 01:00 96 11/15/21 01:00 96 23 99/72 97 Room Air 11/15/21 00:00 98 19 99/70 98 Room Air 11/14/21 23:58 36.5 11/14/21 23:12 Room Air 11/14/21 23:00 101 14 119/89 97 Room Air 11/14/21 22:00 105 35 110/79 98 Room Air 11/14/21 21:00 109 22 107/77 97 Room Air 11/14/21 20:00 101 18 105/80 99 Room Air 11/14/21 20:00 Room Air 11/14/21 19:00 98 11/14/21 19:00 98 23 107/79 99 Room Air 11/14/21 18:00 96 15 100/69 100 Room Air 11/14/21 17:01 Room Air 11/14/21 17:00 97 20 99 Room Air 11/14/21 16:00 98 23 97 Room Air 11/14/21 16:00 36.6 11/14/21 15:00 93 21 98 Room Air I & O 11/15/21 07:00 Intake Total 1720 ml Balance 1720 ml Height & Weight Height: '" Weight: lbs. oz. kg; 20.27 BMI Method:Stated General Appearance: Chronically ill HEENT: PERRL/EOMI, Normal ENT Inspection, Pharynx Normal Neck: Full Range of Motion, Normal Inspection, Non Tender, Supple, Carotid Bruit Respiratory: Chest Non Tender, Lungs Clear, Normal Breath Sounds, No Accessory Muscle Use, No Respiratory Distress Cardiovascular: Regular Rate, Rhythm, No Edema, No Gallop, No JVD, No Murmur, Normal Peripheral Pulses, Tachycardia Extremity: Normal Capillary Refill, Normal Inspection, Normal Range of Motion, Non Tender, No Calf Tenderness, No Pedal Edema Neurologic/Psychiatric: Alert, Oriented x3, No Motor/Sensory Deficits, 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 Skin: Normal Color, Warm/Dry Lymphatic: No Adenopathy Results Lab Laboratory Tests 11/14/21 04:15 11/15/21 04:35 Assessment/Plan Assessment/Plan 1 ROLLY MCCLELLAND MD Nov 15, 2021 14:40
[2021-11-15 15:22] VITALS: BP 97/68
--- NOTE | 2021-11-15 15:36 | Progress Note - Cardiology ---
Cardiology SOAP Progress Note Subjective: Gen weakness and malaise No cp Shortness of breath better No n/v/d Objective: I&O/Vital Signs 11/15/21 11/15/21 11/15/21 11/15/21 03:40 04:00 04:00 05:00 Temp 36.4 Pulse 104 104 Resp 31 15 B/P (MAP) 108/75 108/74 Pulse Ox 91 97 O2 Delivery Room Air Room Air Room Air 11/15/21 11/15/21 11/15/21 11/15/21 06:00 07:00 07:00 08:00 Pulse 104 109 111 Resp 16 22 B/P (MAP) 114/79 108/74 Pulse Ox 97 99 O2 Delivery Room Air Room Air Room Air 11/15/21 11/15/21 11/15/21 11/15/21 08:00 08:00 09:00 10:00 Temp 37.4 Pulse 91 100 110 Resp 28 15 26 B/P (MAP) 109/67 107/76 88/60 Pulse Ox 96 96 88 O2 Delivery Room Air Room Air Room Air 11/15/21 11/15/21 11/15/21 11/15/21 11:00 12:00 12:00 12:00 Temp 35.6 Pulse 89 90 Resp 27 16 B/P (MAP) 87/62 90/71 Pulse Ox 97 97 O2 Delivery Room Air Room Air Room Air 11/15/21 11/15/21 11/15/21 13:00 14:35 15:22 Temp 36.4 36.9 Pulse 72 95 92 Resp 18 18 B/P (MAP) 103/68 97/68 (78) Pulse Ox 97 96 O2 Delivery Room Air Room Air 11/15/21 00:00 Intake Total 1250 ml Balance 1250 ml Constitutional: AAO x 3, well-developed, other (thin appearing) Respiratory: No accessory muscle use; other (fair to good, bilateral air entry, diminished bases) Cardiovascular: regular rate-rhythm, S1 and S2, systolic murmur (soft DAVIS at card base) Gastrointestional: No tender; soft; No guarding, No rebound; audible bowel sounds Extremities: No clubbing, No cyanosis, No significant edema Neurologic/Psychiatric: oriented x 3, other (moves all limbs equally) Skin: warm/dry; No rash, No ulcerations Results/Procedures: Labs Laboratory Tests 11/14/21 16:23: Glucometer 100 11/14/21 19:02: Glucometer 26*L 11/14/21 19:43: Glucometer 249H 11/14/21 22:05: Glucometer 178H 11/14/21 23:20: Glucometer 110 11/15/21 03:22: Glucometer 82 11/15/21 04:35: White Blood Count 4.3, Red Blood Count 2.95L, Hemoglobin 8.6L, Hematocrit 26L, Mean Corpuscular Volume 88, Mean Corpuscular Hemoglobin 29, Mean Corpuscular Hemoglobin Concent 33, Red Cell Distribution Width 18.4H, Platelet Count 122L, Mean Platelet Volume 10.8, Immature Granulocyte % (Auto) 0, Neutrophils (%) (Auto) 58, Lymphocytes (%) (Auto) 35, Monocytes (%) (Auto) 5, Eosinophils (%) (Auto) 2, Basophils (%) (Auto) 1, Neutrophils # (Auto) 2.5, Lymphocytes # (Auto) 1.5, Monocytes # (Auto) 0.2, Eosinophils # (Auto) 0.1, Basophils # (Auto) 0.0, Immature Granulocyte # (Auto) 0.0, Sodium Level 136, Potassium Level 3.4L, Chloride Level 104, Carbon Dioxide Level 23, Anion Gap 9, Blood Urea Nitrogen 10, Creatinine 0.79, Estimat Glomerular Filtration Rate 78, BUN/Creatinine Ratio 13, Glucose Level 89, Calcium Level 6.1L, Corrected Calcium 7.8L, Phosphorus Level 1.2L, Magnesium Level 1.9, Total Bilirubin 0.4, Aspartate Amino Transf (AST/SGOT) 39H, Alanine Aminotransferase (ALT/SGPT) 22, Alkaline Phosphatase 39L , Total Protein 4.6L, Albumin 1.9L 11/15/21 05:05: Blood Gas Puncture Site RIGHT RADIAL, Blood Gas Patient Temperature 36.8, Arterial Blood pH 7.51H, Arterial Blood Partial Pressure CO2 32L, Arterial Blood Partial Pressure O2 57L, Arterial Blood HCO3 26, Arterial Blood Total CO2 26.4, Arterial Blood Oxygen Saturation 92L, Arterial Blood Base Excess 2.5, Donte Test YES-POS, Blood Gas Ventilator Setting NO, Blood Gas Inspired Oxygen ROOM AIR 11/15/21 08:46: Glucometer 106 Microbiology 11/12/21 MRSA Screen - Final, Complete MRSA not isolated A/P: Assessment: Ac systolic CHF (HFrEF) due to ischemic cardiomyopathy - Echo on 11/13/21: LVEF 20-25%, anteroseptal and apical akinesis, mod enlargement of LA, grade 2 diastolic dysfunction, mild MR, PASP 35-40 mmHg Mild troponin elevation - likely type 2 TX due to ac systolic CHF Covid-19 Gen weakness and malaise after long hospitalization of pelvic abscess and sepsis (September - October 2021) Transient episode of atrial fibrillation in March 2020 treated with electrical cardioversion by Dr Gaviria. No recurrence reported. 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 difficile colitis; subsequent ileostomy reversal in 2020 H/o hypertension and hyperlipidemia Diabetes mellitus II, followed and managed by primary care physician History of solitary kidney and history of ovarian cancer. Hypothyroidism, followed and managed by primary care physician Rheumatoid arthritis and osteoarthritis Carotid artery stenosis followed by Dr Claudio Plan: * Continue ASA * Continue heart failure meds - titrate as tolerated * DVT prophylaxis with enoxaparin * Replenish electrolytes * Monitor labs closely * Dr Muniz managing acute Covid-19 * I discussed her CV issues with Ms. Garcia We saw patient as a team (myself and Blaze De Anda). To reduce exposure of the team to Covid, only one member examines patient each day. Today's PE carried out by JESSIE Rosado MD FACP FAC CCDS Nov 15, 2021 15:36
[2021-11-15] MEDS: inSUlin ASPART (NovoLOG) 1 UNIT/0.01 ML (CHARGE PER UNIT) SC SCH ×3 (16:39→21:46)
[2021-11-15] MEDS: ENOXAPARIN 40 MG/0.4 ML (LOVENOX) SYR SC SCH (18:27)
[2021-11-15 19:12] VITALS: BP 106/73
[2021-11-15 23:28] VITALS: BP 99/57
[2021-11-16] VITALS (7 sets, daily range): BP systolic 93–101; BP diastolic 53–67
[2021-11-16 05:48] LABS: BASOPHILS % (AUTO) 0 % (0-10); EOSINOPHILS # (AUTO) 0.1 10^3/uL (0.0-0.3); EOSINOPHILS % (AUTO) 1 % (0-10); HEMATOCRIT 29 % (35-52); HEMOGLOBIN 9.5 g/dL (11.5-16.0); LYMPHOCYTES # (AUTO) 1.3 10^3/uL (1.0-4.0); LYMPHOCYTES % (AUTO) 24 % (12-44); MEAN CORPUSCULAR HEMOGLOBIN 29 pg (25-34); MEAN CORPUSCULAR HGB CONC 32 g/dL (32-36); MEAN CORPUSCULAR VOLUME 89 fL (80-99); MEAN PLATELET VOLUME 11.7 fL (9.0-12.2); MONOCYTES # (AUTO) 0.2 10^3/uL (0.0-1.0); MONOCYTES % (AUTO) 3 % (0-12); NEUTROPHILS # (AUTO) 3.8 10^3/uL (1.8-7.8); NEUTROPHILS % (AUTO) 71 % (42-75); PLATELET COUNT 142 10^3/uL (130-400); WHITE BLOOD COUNT 5.3 10^3/uL (4.3-11.0)
[2021-11-16] MEDS: inSUlin ASPART (NovoLOG) 1 UNIT/0.01 ML (CHARGE PER UNIT) SC SCH ×4 (05:59→20:50)
[2021-11-16 06:48] LABS: ALBUMIN 2.2 GM/DL (3.2-4.5); POTASSIUM 3.8 MMOL/L (3.6-5.0)
[2021-11-16 06:49] LABS: CALCIUM 6.2 MG/DL (8.5-10.1)
[2021-11-16 06:50] LABS: TOTAL PROTEIN 5.1 GM/DL (6.4-8.2)
[2021-11-16 06:52] LABS: BILIRUBIN,TOTAL 0.4 MG/DL (0.1-1.0)
[2021-11-16 06:56] LABS: MAGNESIUM 1.7 MG/DL (1.6-2.4)
--- NOTE | 2021-11-16 09:20 | Physical Therapy Daily Note ---
PT Daily Note-Current Subjective Patient reports she is feeling worse today than yesterday. Agrees to PT. Mental Status Patient Orientation: Normal For Age Transfers SCALE: Activities may be completed with or without assistive devices. 9-Lzdyrqfvli-jvwmbsf completes the activity by him/herself with no assistance from a helper. 5-Set-up or Clean-up Assistance-helper sets up or cleans up; patient completes activity. [place] assists only prior to or following the activity. 4-Supervision or Touching Assistance-helper provides verbal cues and/or touching/steadying and/or contact guard assistance as patient completes activity. Assistance may be provided throughout the activity or intermittently. 3-Partial/Moderate Assistance-helper does LESS THAN HALF the effort. [place] lifts, holds or supports trunk or limbs, but provides less than half the effort. 2-Substantial/Maximal Assistance-helper does MORE THAN HALF the effort. [place] lifts or holds trunk or limbs and provides more than half the effort. 7-Cakuuoqql-fhnvqr does ALL the effort. Patient does none of the effort to complete the activity. Or, the assistance of 2 or more helpers is required for the patient to complete the activity. If activity was not attempted, code reason: 7-Patient Refused. 9-Not Applicable-not attempted and the patient did not perform the activity before the current illness, exacerbation or injury. 10-Not Attempted due to Environmental Limitations-(lack of equipment, weather restraints, etc.). 88-Not Attempted due to Medical Conditions or Safety Concerns. Sit to Stand (QC): 3 Chair/Zmt-ie-Usszx Xfer(QC): 3 Toilet Transfer (QC): 3 Gait Training Distance: 100' in room Walk 10 feet (QC): 4 Walk 50 ft with 2 Turns(QC): 4 Gait Assistive Device: FWW slow, slightly unsteady Exercises Seated Therapy Exercises: Ankle pumps, Long arc quads Seated Reps: 12 Assessment Patient tolerates minimal activity due to not feeling well and extreme fatigue. PT to increase activity as tolerated by patient. PT Chemicals Distiller Goals Chemicals Distiller Goals PT Shelter Goals Time Frame: Nov 27, 2021 Roll Left & Right (QC): 6 Sit to Lying (QC): 6 Lying-Sitting on Side/Bed(QC): 6 Sit to Stand (QC): 6 Chair/Ihu-vy-Spdjg Xfer(QC): 6 Toilet Transfer (QC): 6 Walk 10 feet (QC): 6 Walk 50ft with 2 Turns (QC): 6 Walk 150 ft (QC): 6 PT Plan Treatment/Plan Treatment Plan: Continue Plan of Care Treatment Plan: Bed Mobility, Education, Functional Activity Maikel, Functional Strength, Gait, Safety, Therapeutic Exercise, Transfers Treatment Duration: Nov 27, 2021 Frequency: 6 times per week Estimated Hrs Per Day: .25 hour per day Patient and/or Family Agrees t: Yes Time/GCodes Time In: 810 Time Out: 813 Total Billed Treatment Time: 13 Total Billed Treatment 1 visit FA 13 min ARELI JENNINGS PT Nov 16, 2021 09:20
[2021-11-16] MEDS: SENNOSIDES 8.6 MG (SENOKOT) TAB PO SCH ×2 (09:47→20:51)
[2021-11-16] MEDS: SACUBITRIL/VALSARTAN 24/26 MG (ENTRESTO) TABLET PO SCH ×2 (09:47→21:04)
[2021-11-16] MEDS: ASPIRIN 81 MG CHEW (CHILDREN'S ASA) PO SCH (09:47)
[2021-11-16] MEDS: SPIRONOLACTONE 25 MG (ALDACTONE) TAB PO SCH (09:47)
[2021-11-16] MEDS: FUROSEMIDE 40 MG (LASIX) TAB PO SCH (09:48)
--- NOTE | 2021-11-16 10:13 | Progress Note ---
ONOFRE MCDUFFIE A MED STUDENT 11/16/21 1013: Subjective Date Seen by a Provider: Nov 16, 2021 Time Seen by a Provider: 08:00 Subjective/Events-last exam Pt lying in bed this morning, reporting she has intermittent sharp chest pain underneath her left breast. Pt reports she has never had pain like this before. Pt has no other concerns. Review of Systems General: No Chills, No Fatigue HEENT: No Head Aches, No Visual Changes Pulmonary: No Dyspnea, No Cough Cardiovascular: Chest Pain; No: Palpitations Gastrointestinal: No: Nausea, Vomiting Genitourinary: No Dysuria, No Frequency Musculoskeletal: No: neck pain, shoulder pain Neurological: No: Weakness, Numbness Focused Exam Lactate Level 11/13/21 14:35: Lactic Acid Level 1.53 11/14/21 04:15: Lactic Acid Level 1.07 Objective Exam Last Set of Vital Signs Vital Signs Date Time Temp Pulse Resp B/P (MAP) Pulse Ox O2 Delivery O2 Flow Rate FiO2 11/16/21 07:31 36.8 104 18 96/64 (75) 96 Room Air 11/13/21 19:36 0.00 11/12/21 18:53 21 Capillary Refill : I&O Intake and Output 11/16/21 00:00 Intake Total 900 ml Balance 900 ml Intake Oral 800 ml IV Total 100 ml # Voids 6 # Bowel Movements 4 General: Alert, Oriented X3 HEENT: Atraumatic, PERRLA Neck: Supple, No JVD Lungs: Clear to Auscultation, Normal Air Movement Heart: No Murmurs, Other (irregularly irregular) Abdomen: Normal Bowel Sounds, Soft, Other (ileostomy with drain) Extremities: No Clubbing, No Cyanosis Skin: No Rashes, No Breakdown Neuro: Normal Speech, Normal Tone Psych/Mental Status: Mental Status NL Results Lab Laboratory Tests 11/16/21 05:12: Glucometer 58*L 11/16/21 05:15: White Blood Count 5.3, Red Blood Count 3.29L, Hemoglobin 9.5L, Hematocrit 29L, Mean Corpuscular Volume 89, Mean Corpuscular Hemoglobin 29, Mean Corpuscular Hemoglobin Concent 32, Red Cell Distribution Width 17.9H, Platelet Count 142, Mean Platelet Volume 11.7, Immature Granulocyte % (Auto) 0, Neutrophils (%) (Auto) 71, Lymphocytes (%) (Auto) 24, Monocytes (%) (Auto) 3, Eosinophils (%) (Auto) 1, Basophils (%) (Auto) 0, Neutrophils # (Auto) 3.8, Lymphocytes # (Auto) 1.3, Monocytes # (Auto) 0.2, Eosinophils # (Auto) 0.1, Basophils # (Auto) 0.0, Immature Granulocyte # (Auto) 0.0, Sodium Level 138, Potassium Level 3.8, Chloride Level 103, Carbon Dioxide Level 22, Anion Gap 13, Blood Urea Nitrogen 10, Creatinine 1.00, Estimat Glomerular Filtration Rate 59, BUN/Creatinine Ratio 10, Glucose Level 61L, Calcium Level 6.2L, Corrected Calcium 7.6L, Magnesium Level 1.7, Total Bilirubin 0.4, Aspartate Amino Transf (AST/SGOT) 40H, Alanine Aminotransferase (ALT/SGPT) 24, Alkaline Phosphatase 53, Total Protein 5.1L, Albumin 2.2L Microbiology 11/12/21 MRSA Screen - Final, Complete MRSA not isolated Assessment/Plan Assessment/Plan Assess & Plan/Chief Complaint COVID infection with vaccination and 1 booster -Central line placed -No oxygen required at this time -Currently on isolation for 10 days making her an unlikely candidate for IRF S/p ileostomy reversal with fistula and abscess -General surgery following, appreciate their recs -Drain still in place from [facility] 10/14 -Levofloxacin CHF -Echo EF 20-25% -Lasix and spironolactone Type II CT -Cardiology following, appreciate their recs -Telemetry Afib -Lovenox HTN -Well controlled currently Diabetes -SSI CKD3a -BUN/Cr wnl Recent hospitalization at [facility] 10/20-11/11 following stay at [facility] 10/14 for pelvic abscess drainage. Diet: Regular DVT prophylaxis: Lovenox and SCDs NENA MIMS DO 11/17/21 0637: Assessment/Plan Assessment/Plan Assess & Plan/Chief Complaint Monitor lung function and O2 sat Chest pain management per Dr Rivera Supervisory-Addendum Brief Verification & Attestation Participated in pt care: history, MDM, physical Personally performed: exam, history, MDM, supervision of care Care discussed with: Medical Student Procedures: n/a Results interpretation: Verified all documentation Verification and Attestation of Medical Student E/M Service A medical student performed and documented this service in my presence. I re viewed and verified all information documented by the medical student and made modifications to such information, when appropriate. I personally performed the physical exam and medical decision making. Nena Mims, Nov 17, 2021,06:37 ONOFRE MCDUFFIE MED STUDENT Nov 16, 2021 10:13 NENA MIMS DO Nov 17, 2021 06:37
[2021-11-16] MEDS: DOCUSATE SODIUM 100 MG (COLACE) CAP PO SCH ×2 (13:34→20:51)
--- NOTE | 2021-11-16 13:38 | Occupational Ther Daily Note ---
OT Current Status-Daily Note Subjective Pt alert, sitting in recliner. Pt agrees to therapy. No c/o pain only fatigue. Mental Status/Objective Patient Orientation: Person, Place, Time, Situation Attachments: Colostomy/Ileostomy, Telemetry ADL-Treatment Pt able to ambulate to bathroom using FWW with CGA for safety. Set up for footwear, slide on sandals. Standing at sink with SBA for safety, pt able to complete oral care independently. Pt fatigued quickly and requested to lay in bed. Bed mobility independent. After session, pt lying in bed with call light/phone in reach. All needs met. Therapy Code Descriptions/Definitions Functional [place] Measure: 0=Not Assessed/NA 4=Minimal Assistance 1=Total Assistance 5=Supervision or Setup 2=Maximal Assistance 6=Modified [place] 3=Moderate Assistance 7=Complete IndependenceSCALE: Activities may be completed with or without assistive devices. 7-Anxvjmytvj-qphwims completes the activity by him/herself with no assistance from a helper. 5-Set-up or Clean-up Assistance-helper sets up or cleans up; patient completes activity. [place] assists only prior to or following the activity. 4-Supervision or Touching Assistance-helper provides verbal cues and/or touching/steadying and/or contact guard assistance as patient completes activity. Assistance may be provided throughout the activity or intermittently. 3-Partial/Moderate Assistance-helper does LESS THAN HALF the effort. [place] lifts, holds or supports trunk or limbs, but provides less than half the effort. 2-Substantial/Maximal Assistance-helper does MORE THAN HALF the effort. [place] lifts or holds trunk or limbs and provides more than half the effort. 9-Yymqpslnl-imljnk does ALL the effort. Patient does none of the effort to complete the activity. Or, the assistance of 2 or more helpers is required for the patient to complete the activity. If activity was not attempted, code reason: 7-Patient Refused. 9-Not Applicable-not attempted and the patient did not perform the activity before the current illness, exacerbation or injury. 10-Not Attempted due to Environmental Limitations-(lack of equipment, weather restraints, etc.). 88-Not Attempted due to Medical Conditions or Safety Concerns. OT Senior Care Goals Senior Care Goals Time Frame: Nov 26, 2021 Eating (QC): 6 Oral Hygiene (QC): 6 Toileting Hygiene (QC): 6 Shower/Bathe Self (QC): 6 Upper Body Dressing (QC): 6 Lower Body Dressing (QC): 6 On/Off Footwear (QC): 6 Additional Goals: 1-Demonstrate ADL Tasks, 2-Verbalize Understanding, 3- ImproveStrength/Maikel 1=Demonstrate adherence to instructed precautions during ADL tasks. 2=Patient will verbalize/demonstrate understanding of assistive devices/modifications for ADL. 3=Patient will improve strength/tolerance for activity to enable patient to perform ADL's. OT Education/Plan Problem List/Assessment Assessment: Decreased Activ Tolerance Pt would benefit from skilled OT services in order to increase BUE Strength and activity tolerance, and increase safety and independence with ADLs and functional mobility in order to maximize LOF for safe return home. Discharge Recommendations Plan/Recommendations: Continue POC Treatment Plan/Plan of Care Patient would benefit from OT for education, treatment and training to promote independence in ADL's, mobility, safety and/or upper extremity function for ADL's. Plan of Care: ADL Retraining, Functional Mobility, UE Funct Exercise/Act Treatment Duration: Nov 26, 2021 Frequency: 3 times per week (3-5 times per week) Estimated Hrs Per Day: .25 hour per day Agreement: Yes Rehab Potential: Fair Time/GCodes Start Time: 13:05 Stop Time: 13:20 Total Time Billed (hr/min): 15 Billed Treatment Time 1 visit-ADL 1(15 min) ELIZABETH BUTLER Nov 16, 2021 13:38
[2021-11-16] MEDS: ENOXAPARIN 40 MG/0.4 ML (LOVENOX) SYR SC SCH (17:59)
--- NOTE | 2021-11-16 18:08 | Progress Note - Cardiology ---
Cardiology SOAP Progress Note Subjective: Gen weakness and malaise Intermittent pleuritic discomfort of the L chest, mild to mod, lasted a few min this am, no recurrence Gets short of breath with mild exertion No palp or syncope No swelling Objective: I&O/Vital Signs 11/16/21 11/16/21 11/16/21 11/16/21 06:46 07:31 09:00 11:06 Temp 36.8 36.2 Pulse 117 104 105 Resp 18 18 B/P (MAP) 96/64 (75) 93/55 (68) Pulse Ox 96 98 O2 Delivery Room Air Room Air Room Air 11/16/21 11/16/21 11/16/21 12:37 14:34 15:19 Temp 37.2 Pulse 102 94 Resp 18 B/P (MAP) 98/56 (70) 101/66 (78) Pulse Ox 98 O2 Delivery Room Air 11/16/21 00:00 Intake Total 540 ml Balance 540 ml Constitutional: AAO x 3, well-developed, other (thin appearing) Respiratory: No accessory muscle use; other (fair to good, bilateral air entry, diminished bases) Cardiovascular: regular rate-rhythm, S1 and S2, systolic murmur (soft DAVIS at card base) Gastrointestional: No tender; soft; No guarding, No rebound; audible bowel sounds Extremities: No clubbing, No cyanosis, No significant edema Neurologic/Psychiatric: oriented x 3, other (moves all limbs equally) Skin: warm/dry; No rash, No ulcerations Results/Procedures: Labs Laboratory Tests 11/16/21 05:12: Glucometer 58*L 11/16/21 05:15: White Blood Count 5.3, Red Blood Count 3.29L, Hemoglobin 9.5L, Hematocrit 29L, Mean Corpuscular Volume 89, Mean Corpuscular Hemoglobin 29, Mean Corpuscular Hemoglobin Concent 32, Red Cell Distribution Width 17.9H, Platelet Count 142, Mean Platelet Volume 11.7, Immature Granulocyte % (Auto) 0, Neutrophils (%) (Auto) 71, Lymphocytes (%) (Auto) 24, Monocytes (%) (Auto) 3, Eosinophils (%) (Auto) 1, Basophils (%) (Auto) 0, Neutrophils # (Auto) 3.8, Lymphocytes # (Auto) 1.3, Monocytes # (Auto) 0.2, Eosinophils # (Auto) 0.1, Basophils # (Auto) 0.0, Immature Granulocyte # (Auto) 0.0, Sodium Level 138, Potassium Level 3.8, Chloride Level 103, Carbon Dioxide Level 22, Anion Gap 13, Blood Urea Nitrogen 10, Creatinine 1.00, Estimat Glomerular Filtration Rate 59, BUN/Creatinine Ratio 10, Glucose Level 61L, Calcium Level 6.2L, Corrected Calcium 7.6L, Magnesium Level 1.7, Total Bilirubin 0.4, Aspartate Amino Transf (AST/SGOT) 40H, Alanine Aminotransferase (ALT/SGPT) 24, Alkaline Phosphatase 53, Total Protein 5.1L, Albumin 2.2L 11/16/21 11:04: Glucometer 242H 11/16/21 15:22: Glucometer 155H Microbiology 11/12/21 MRSA Screen - Final, Complete MRSA not isolated Laboratory Tests 11/15/21 04:35 11/16/21 05:15 A/P: Assessment: Ac systolic CHF (HFrEF) due to ischemic cardiomyopathy - Echo on 11/13/21: LVEF 20-25%, anteroseptal and apical akinesis, mod enlargement of LA, grade 2 diastolic dysfunction, mild MR, PASP 35-40 mmHg Mild troponin elevation - likely type 2 [place] due to ac systolic CHF Covid-19 Marked gen weakness and frailty after long hospitalization of pelvic abscess and sepsis (September - October 2021) Transient episode of atrial fibrillation in March 2020 treated with electrical cardioversion by Dr Gaviria. No recurrence reported. 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 difficile colitis; subsequent ileostomy reversal in 2020 H/o hypertension and hyperlipidemia Diabetes mellitus II, followed and managed by primary care physician History of solitary kidney and history of ovarian cancer. Hypothyroidism, followed and managed by primary care physician Rheumatoid arthritis and osteoarthritis Carotid artery stenosis followed by Dr Cluadio Plan: * Management remains complex * Given multiple comorbidities (including marked frailty) and given patient's own desire to be managed conservatively at this time, we are continuing conservative therapy * Titrate heart failure meds as tolerated. Dosage reduction today due to relatively low bp * DVT prophylaxis with enoxaparin * Monitor labs closely and replenish lytes as needed * Dr Muniz managing acute Covid-19 * I discussed her CV issues with . JESSIE Isidro MD FACP FAC CCDS Nov 16, 2021 18:08
[2021-11-16] MEDS: MELATONIN 3 MG TABLET PO PRN (23:15)
[2021-11-17 03:22] VITALS: BP 110/75
[2021-11-17 05:24] LABS: BASOPHILS % (AUTO) 0 % (0-10); EOSINOPHILS % (AUTO) 1 % (0-10); HEMATOCRIT 28 % (35-52); HEMOGLOBIN 9.2 g/dL (11.5-16.0); LYMPHOCYTES % (AUTO) 34 % (12-44); MEAN CORPUSCULAR HEMOGLOBIN 29 pg (25-34); MEAN CORPUSCULAR HGB CONC 32 g/dL (32-36); MEAN CORPUSCULAR VOLUME 89 fL (80-99); MEAN PLATELET VOLUME 11.5 fL (9.0-12.2); MONOCYTES # (AUTO) 0.2 10^3/uL (0.0-1.0); MONOCYTES % (AUTO) 4 % (0-12); NEUTROPHILS # (AUTO) 3.6 10^3/uL (1.8-7.8); NEUTROPHILS % (AUTO) 61 % (42-75); PLATELET COUNT 152 10^3/uL (130-400); WHITE BLOOD COUNT 5.8 10^3/uL (4.3-11.0)
[2021-11-17 05:33] LABS: ALBUMIN 2.3 GM/DL (3.2-4.5)
[2021-11-17 05:34] LABS: POTASSIUM 3.9 MMOL/L (3.6-5.0)
[2021-11-17 05:35] LABS: CALCIUM 6.2 MG/DL (8.5-10.1)
[2021-11-17 05:36] LABS: TOTAL PROTEIN 5.4 GM/DL (6.4-8.2)
[2021-11-17 05:38] LABS: BILIRUBIN,TOTAL 0.4 MG/DL (0.1-1.0)
[2021-11-17 05:40] LABS: CREATININE SERUM 1.2 MG/DL (0.60-1.30)
[2021-11-17 05:43] LABS: MAGNESIUM 1.7 MG/DL (1.6-2.4)
[2021-11-17] MEDS: inSUlin ASPART (NovoLOG) 1 UNIT/0.01 ML (CHARGE PER UNIT) SC SCH ×4 (06:08→21:32)
[2021-11-17 07:38] VITALS: BP 103/64
[2021-11-17] MEDS: FUROSEMIDE 40 MG (LASIX) TAB PO SCH (09:04)
[2021-11-17] MEDS: ASPIRIN 81 MG CHEW (CHILDREN'S ASA) PO SCH (09:04)
[2021-11-17] MEDS: SPIRONOLACTONE 25 MG (ALDACTONE) TAB PO SCH (09:04)
[2021-11-17] MEDS: SACUBITRIL/VALSARTAN 24/26 MG (ENTRESTO) TABLET PO SCH ×2 (09:04→21:45)
[2021-11-17] MEDS: SENNOSIDES 8.6 MG (SENOKOT) TAB PO SCH ×2 (09:34→21:45)
[2021-11-17] MEDS: DOCUSATE SODIUM 100 MG (COLACE) CAP PO SCH ×2 (09:34→21:45)
--- NOTE | 2021-11-17 10:55 | Progress Note - Cardiology ---
Cardiology SOAP Progress Note Subjective: In bed No c/o SOB, palpitations or CP C/O ileostomy leakage Objective: I&O/Vital Signs 11/17/21 11/17/21 11/17/21 11/17/21 06:32 07:15 07:38 08:28 Temp 37.6 Pulse 98 102 Resp 18 B/P (MAP) 103/64 (77) Pulse Ox 97 96 O2 Delivery Room Air Room Air Room Air 11/17/21 11/17/21 11/17/21 08:39 11:36 12:30 Temp 36.8 Pulse 99 90 91 Resp 18 B/P (MAP) 94/63 (73) Pulse Ox 96 98 O2 Delivery Room Air FiO2 21 11/17/21 00:00 Intake Total 680 ml Balance 680 ml Constitutional: AAO x 3, well-developed, other (thin appearing) Respiratory: No accessory muscle use; other (fair to good, bilateral air entry, diminished bases) Cardiovascular: regular rate-rhythm, S1 and S2, systolic murmur (soft DAVIS at card base) Gastrointestional: No tender; soft; No guarding, No rebound; audible bowel sounds, other (ileostomy) Extremities: No clubbing, No cyanosis, No significant edema Neurologic/Psychiatric: oriented x 3, other (moves all limbs equally) Skin: warm/dry; No rash, No ulcerations Results/Procedures: Labs Laboratory Tests 11/16/21 20:32: Glucometer 162H 11/17/21 03:19: Glucometer 92 11/17/21 05:08: White Blood Count 5.8, Red Blood Count 3.19L, Hemoglobin 9.2L, Hematocrit 28L, Mean Corpuscular Volume 89, Mean Corpuscular Hemoglobin 29, Mean Corpuscular Hemoglobin Concent 32, Red Cell Distribution Width 17.7H, Platelet Count 152, Mean Platelet Volume 11.5, Immature Granulocyte % (Auto) 0, Neutrophils (%) (Auto) 61, Lymphocytes (%) (Auto) 34, Monocytes (%) (Auto) 4, Eosinophils (%) (Auto) 1, Basophils (%) (Auto) 0, Neutrophils # (Auto) 3.6, Lymphocytes # (Auto) 2.0, Monocytes # (Auto) 0.2, Eosinophils # (Auto) 0.0, Basophils # (Auto) 0.0, Immature Granulocyte # (Auto) 0.0, Sodium Level 139, Potassium Level 3.9, Chloride Level 104, Carbon Dioxide Level 21, Anion Gap 14, Blood Urea Nitrogen 11, Creatinine 1.20, Estimat Glomerular Filtration Rate 47, BUN/Creatinine Ratio 9, Glucose Level 107H, Calcium Level 6.2L, Corrected Calcium 7.6L, Magnesium Level 1.7, Total Bilirubin 0.4, Aspartate Amino Transf (AST/SGOT) 32, Alanine Aminotransferase (ALT/SGPT) 18, Alkaline Phosphatase 56, Total Protein 5.4L, Albumin 2.3L 11/17/21 11:34: Glucometer 161H Microbiology 11/12/21 MRSA Screen - Final, Complete MRSA not isolated A/P: Assessment: Ac systolic CHF (HFrEF) due to ischemic cardiomyopathy - Echo on 11/13/21: LVEF 20-25%, anteroseptal and apical akinesis, mod enlargement of LA, grade 2 diastolic dysfunction, mild MR, PASP 35-40 mmHg Mild troponin elevation - likely type 2 [place] due to ac systolic CHF Covid-19 Marked gen weakness and frailty after long hospitalization of pelvic abscess and sepsis (September - October 2021) Transient episode of atrial fibrillation in March 2020 treated with electrical cardioversion by Dr Gaviria. No recurrence reported. 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 difficile colitis; subsequent ileostomy reversal in 2020 H/o hypertension and hyperlipidemia Diabetes mellitus II, followed and managed by primary care physician History of solitary kidney and history of ovarian cancer. Hypothyroidism, followed and managed by primary care physician Rheumatoid arthritis and osteoarthritis Carotid artery stenosis followed by Dr Claudio Plan: * Management remains complex * Given multiple comorbidities (including marked frailty) and given patient's own desire to be managed conservatively at this time, we are continuing conservative therapy * Titrate heart failure meds as tolerated * DVT prophylaxis with enoxaparin * Monitor labs closely and replenish lytes as needed * Dr Muniz managing acute Covid-19 * Management of ileostomy per Dr. Nieves * Dr. Kaufman will be covering cardiology care NETTA BURNHAM Nov 17, 2021 10:55
--- NOTE | 2021-11-17 11:21 | Progress Note ---
ONOFRE MCDUFFIE A MED STUDENT 11/17/21 1121: Subjective Date Seen by a Provider: Nov 17, 2021 Time Seen by a Provider: 08:30 Subjective/Events-last exam Pt lying in bed comfortably this morning. Pt reports she woke up to her colostomy bag leaking this morning. Nurse reports this happened three times yesterday as well. Pt would like to know when the drain is going to come out. Pt has some concerns of numbness in her feet and hands, but this has been ongoing for quite some time. Review of Systems General: No Chills, No Fatigue HEENT: No Head Aches, No Visual Changes Pulmonary: No Dyspnea, No Cough Cardiovascular: No: Chest Pain, Palpitations Gastrointestinal: No: Nausea, Vomiting Genitourinary: No Dysuria, No Frequency Musculoskeletal: No: neck pain, shoulder pain Neurological: Weakness, Numbness Objective Exam Last Set of Vital Signs Vital Signs Date Time Temp Pulse Resp B/P (MAP) Pulse Ox O2 Delivery O2 Flow Rate FiO2 11/17/21 08:39 99 96 21 11/17/21 08:28 Room Air 11/17/21 07:38 37.6 18 103/64 (77) 11/13/21 19:36 0.00 Capillary Refill : I&O Intake and Output 11/17/21 00:00 Intake Total 930 ml Balance 930 ml Intake Oral 930 ml # Voids 5 # Bowel Movements 3 General: Alert, Oriented X3, Cooperative HEENT: Atraumatic, PERRLA Neck: Supple, No JVD Lungs: Clear to Auscultation, Normal Air Movement Heart: Other (irregularly irregular) Abdomen: Normal Bowel Sounds, Soft Extremities: No Edema, Normal Pulses Skin: No Rashes, No Breakdown Neuro: Normal Speech, Normal Tone Psych/Mental Status: Mental Status NL Results Lab Laboratory Tests 11/16/21 15:22: Glucometer 155H 11/16/21 20:32: Glucometer 162H 11/17/21 03:19: Glucometer 92 11/17/21 05:08: White Blood Count 5.8, Red Blood Count 3.19L, Hemoglobin 9.2L, Hematocrit 28L, Mean Corpuscular Volume 89, Mean Corpuscular Hemoglobin 29, Mean Corpuscular Hemoglobin Concent 32, Red Cell Distribution Width 17.7H, Platelet Count 152, M danile Platelet Volume 11.5, Immature Granulocyte % (Auto) 0, Neutrophils (%) (Auto) 61, Lymphocytes (%) (Auto) 34, Monocytes (%) (Auto) 4, Eosinophils (%) (Auto) 1, Basophils (%) (Auto) 0, Neutrophils # (Auto) 3.6, Lymphocytes # (Auto) 2.0, Monocytes # (Auto) 0.2, Eosinophils # (Auto) 0.0, Basophils # (Auto) 0.0, Immature Granulocyte # (Auto) 0.0, Sodium Level 139, Potassium Level 3.9, Chloride Level 104, Carbon Dioxide Level 21, Anion Gap 14, Blood Urea Nitrogen 11, Creatinine 1.20, Estimat Glomerular Filtration Rate 47, BUN/Creatinine Ratio 9, Glucose Level 107H, Calcium Level 6.2L, Corrected Calcium 7.6L, Magnesium Level 1.7, Total Bilirubin 0.4, Aspartate Amino Transf (AST/SGOT) 32, Alanine Aminotransferase (ALT/SGPT) 18, Alkaline Phosphatase 56, Total Protein 5.4L, Albumin 2.3L Microbiology 11/12/21 MRSA Screen - Final, Complete MRSA not isolated Assessment/Plan Assessment/Plan Assess & Plan/Chief Complaint COVID infection with vaccination and 1 booster -Central line placed -No oxygen required at this time -Currently on isolation for 10 days making her an unlikely candidate for IRF at this time S/p ileostomy reversal with fistula and abscess -General surgery consulted again for possible drain removal -Drain still in place from [facility] IR 10/14 -Levofloxacin CHF -Echo EF 20-25% -Lasix and spironolactone Type II MA -Cardiology following, appreciate their recs -Telemetry Afib -Lovenox HTN -Well controlled currently Diabetes -SSI CKD3a -BUN/Cr wnl Recent hospitalization at [facility] 10/20-11/11 following stay at [facility] 10/14 for pelvic abscess drainage. Diet: Regular DVT prophylaxis: Lovenox and SCDs NENA MIMS DO 11/17/212112: Subjective Subjective/Events-last exam Pt is doing about the same No more chest pain Heart rate is better She is too weak to go home so we'll need to evaluate that She will be in isolation until Monday Review of Systems General: Fatigue, Malaise Objective Exam General: Alert, Oriented X3, Cooperative, No Acute Distress Lungs: Clear to Auscultation, Normal Air Movement Heart: Regular Rate, Normal S1, Normal S2, No Murmurs Psych/Mental Status: Mental Status NL, Mood NL Assessment/Plan Assessment/Plan Assess & Plan/Chief Complaint PT OT Monitor O2 Supervisory-Addendum Brief Verification & Attestation Participated in pt care: history, MDM, physical Personally performed: exam, history, MDM, supervision of care Care discussed with: Medical Student Procedures: n/a Results interpretation: Verified all documentation Verification and Attestation of Medical Student E/M Service A medical student performed and documented this service in my presence. I re viewed and verified all information documented by the medical student and made modifications to such information, when appropriate. I personally performed the physical exam and medical decision making. Nena Mims, Nov 17, 2021,21:13 ONOFRE MCDUFFIE MED STUDENT Nov 17, 2021 11:21 NENA MIMS DO Nov 17, 2021 21:13
[2021-11-17 11:36] VITALS: BP 94/63
--- NOTE | 2021-11-17 13:26 | Occupational Ther Daily Note ---
OT Current Status-Daily Note Subjective Pt alert, lying in bed. Nrsg and wound care in room changing colostomy. Pt agrees to therapy. Mental Status/Objective Patient Orientation: Person, Place, Time, Situation Attachments: Colostomy/Ileostomy, IV ADL-Treatment Therapy Code Descriptions/Definitions Functional [place] Measure: 0=Not Assessed/NA 4=Minimal Assistance 1=Total Assistance 5=Supervision or Setup 2=Maximal Assistance 6=Modified [place] 3=Moderate Assistance 7=Complete IndependenceSCALE: Activities may be completed with or without assistive devices. 2-Bospxzrpuj-qasgavs completes the activity by him/herself with no assistance from a helper. 5-Set-up or Clean-up Assistance-helper sets up or cleans up; patient completes activity. [place] assists only prior to or following the activity. 4-Supervision or Touching Assistance-helper provides verbal cues and/or touching/steadying and/or contact guard assistance as patient completes activity. Assistance may be provided throughout the activity or intermittently. 3-Partial/Moderate Assistance-helper does LESS THAN HALF the effort. [place] lifts, holds or supports trunk or limbs, but provides less than half the effort. 2-Substantial/Maximal Assistance-helper does MORE THAN HALF the effort. [place] lifts or holds trunk or limbs and provides more than half the effort. 2-Ensazgokk-nqofno does ALL the effort. Patient does none of the effort to complete the activity. Or, the assistance of 2 or more helpers is required for the patient to complete the activity. If activity was not attempted, code reason: 7-Patient Refused. 9-Not Applicable-not attempted and the patient did not perform the activity before the current illness, exacerbation or injury. 10-Not Attempted due to Environmental Limitations-(lack of equipment, weather restraints, etc.). 88-Not Attempted due to Medical Conditions or Safety Concerns. Other Treatment Independent bed mobility. Assisted wound care and nrsg with pt while colostomy was changed. Pt tolerated 3 B UE exercises 15 reps each with recovery break in between each exercise to increase UE strength for daily functional tasks. Skilled instruction required for correct tech. Pt ended session due to increased fatigue. After session, pt lying in bed with call light/phone in reach. All needs met in room. OT Storage Solutions Architect Goals Storage Solutions Architect Goals Time Frame: Nov 26, 2021 Eating (QC): 6 Oral Hygiene (QC): 6 Toileting Hygiene (QC): 6 Shower/Bathe Self (QC): 6 Upper Body Dressing (QC): 6 Lower Body Dressing (QC): 6 On/Off Footwear (QC): 6 Additional Goals: 1-Demonstrate ADL Tasks, 2-Verbalize Understanding, 3- ImproveStrength/Maikel 1=Demonstrate adherence to instructed precautions during ADL tasks. 2=Patient will verbalize/demonstrate understanding of assistive devices/modifications for ADL. 3=Patient will improve strength/tolerance for activity to enable patient to perform ADL's. OT Education/Plan Problem List/Assessment Assessment: Decreased Activ Tolerance, Decreased UE Strength, Impaired Self- Care Skills Pt would benefit from skilled OT services in order to increase BUE Strength and activity tolerance, and increase safety and independence with ADLs and functional mobility in order to maximize LOF for safe return home. Discharge Recommendations Plan/Recommendations: Continue POC Treatment Plan/Plan of Care Patient would benefit from OT for education, treatment and training to promote independence in ADL's, mobility, safety and/or upper extremity function for ADL's. Plan of Care: ADL Retraining, Functional Mobility, UE Funct Exercise/Act Treatment Duration: Nov 26, 2021 Frequency: 3 times per week (3-5 times per week) Estimated Hrs Per Day: .25 hour per day Agreement: Yes Rehab Potential: Fair Time/GCodes Start Time: 11:00 Stop Time: 11:23 Total Time Billed (hr/min): 23 Billed Treatment Time 1 visit-FA 1 (13 min) EX 1 (10 min) ELIZABETH BUTLER Nov 17, 2021 13:26
--- NOTE | 2021-11-17 14:09 | Physical Therapy Daily Note ---
PT Daily Note-Current Subjective Pt in recliner and agrees to PT. Pt says she is feeling better than yesterday. Mental Status Patient Orientation: Person, Confused, Place Transfers SCALE: Activities may be completed with or without assistive devices. 2-Xyiaqqxcwh-qmqrmap completes the activity by him/herself with no assistance from a helper. 5-Set-up or Clean-up Assistance-helper sets up or cleans up; patient completes activity. [place] assists only prior to or following the activity. 4-Supervision or Touching Assistance-helper provides verbal cues and/or touching/steadying and/or contact guard assistance as patient completes activity. Assistance may be provided throughout the activity or intermittently. 3-Partial/Moderate Assistance-helper does LESS THAN HALF the effort. [place] lifts, holds or supports trunk or limbs, but provides less than half the effort. 2-Substantial/Maximal Assistance-helper does MORE THAN HALF the effort. [place] lifts or holds trunk or limbs and provides more than half the effort. 6-Kxlyxrkzk-ddivgv does ALL the effort. Patient does none of the effort to complete the activity. Or, the assistance of 2 or more helpers is required for the patient to complete the activity. If activity was not attempted, code reason: 7-Patient Refused. 9-Not Applicable-not attempted and the patient did not perform the activity before the current illness, exacerbation or injury. 10-Not Attempted due to Environmental Limitations-(lack of equipment, weather restraints, etc.). 88-Not Attempted due to Medical Conditions or Safety Concerns. Sit to Stand (QC): 4 Gait Training Does the Patient Walk?: Yes Distance: 50' x 2 Walk 10 feet (QC): 4 Walk 50 ft with 2 Turns(QC): 4 Gait Persons Needed: 1 Gait Assistive Device: FWW Exercises Seated Therapy Exercises: Ankle pumps, Sit to stand (4), Long arc quads Seated Reps: 20 Treatments Pt TFs back to recliner following treatment w/ all needs met and call light nearby. Assessment Current Status: Good Progress Pt becomes fatigued following amb of 50' and requires rest break but then is able to amb another 50' following rest break. Required cues for hand and foot placement during TFs. PT Long-Term Goals Solder Cream Maker Goals PT Long-Term Goals Time Frame: Nov 27, 2021 Roll Left & Right (QC): 6 Sit to Lying (QC): 6 Lying-Sitting on Side/Bed(QC): 6 Sit to Stand (QC): 6 Chair/Ycs-bz-Aqznm Xfer(QC): 6 Toilet Transfer (QC): 6 Walk 10 feet (QC): 6 Walk 50ft with 2 Turns (QC): 6 Walk 150 ft (QC): 6 PT Plan Problem List Problem List: Activity Tolerance, Functional Strength Treatment/Plan Treatment Plan: Continue Plan of Care Treatment Plan: Bed Mobility, Education, Functional Activity Maikel, Functional Strength, Gait, Safety, Therapeutic Exercise, Transfers Treatment Duration: Nov 27, 2021 Frequency: 6 times per week Estimated Hrs Per Day: .25 hour per day Patient and/or Family Agrees t: Yes Safety Risks/Education Patient Education: Transfer Techniques, Correct Positioning Teaching Recipient: Patient Teaching Methods: Discussion Response to Teaching: Return Demonstration Time/GCodes Time In: 1333 Time Out: 1351 Total Billed Treatment Time: 14 Total Billed Treatment 1, Ex MARGARITA AMBROSIO MATERIALS ENGINEER Nov 17, 2021 14:09
--- NOTE | 2021-11-17 15:56 | Diagnostic Imaging Report ---
EXAMINATION: CT abdomen and pelvis without contrast. TECHNIQUE: Multiple contiguous axial images were obtained through the abdomen and pelvis without the use of intravenous contrast. All CT scans use one or more of the following dose optimizing techniques: automated exposure control, MA and/or KvP adjustment based on patient size and exam type or iterative reconstruction. HISTORY: Ileostomy reversal with leak. Decreased drainage. COMPARISON: 11/30/2020 FINDINGS: Lung bases: There is a small right pleural effusion with adjacent atelectasis or consolidation. Solid organs: The liver is normal. The gallbladder is surgically absent. There is no biliary ductal dilation. Pancreas is normal. Spleen is normal. Adrenal glands are normal. The right kidney is nonvisualized and may be surgically absent. Left kidney is unremarkable without visualized calculus or hydronephrosis. Bowel: Surgical changes of the small bowel and colon. No bowel obstruction. Peritoneum: There is a percutaneous drainage catheter within the midline abdominal incision. No significant fluid air component is seen. Evaluation is limited secondary to lack of IV contrast. No obvious loculated fluid collection or free air within the abdomen. No suspicious lymphadenopathy. Vasculature: Calcification of the aorta without aneurysm. Musculoskeletal: No suspicious osseous lesion or compression fracture. Pelvis: The uterus is surgically absent. No adnexal mass. The urinary bladder is normal. IMPRESSION: 1. Percutaneous drainage catheter within the midline abdominal incision without obvious fluid collection. 2. No other acute abnormality in the abdomen or pelvis. Dictated by: Dictated on workstation # [id number]
--- NOTE | 2021-11-17 16:20 | Progress Note - Cardiology ---
Cardiology SOAP Progress Note Subjective: No cp or palp or syncope or shortness of breath Gen weakness and malaise present - improving very slowly No n/v/d Objective: I&O/Vital Signs 11/17/21 11/17/21 11/17/21 11/17/21 06:32 07:15 07:38 08:28 Temp 37.6 Pulse 98 102 Resp 18 B/P (MAP) 103/64 (77) Pulse Ox 97 96 O2 Delivery Room Air Room Air Room Air 11/17/21 11/17/21 11/17/21 08:39 11:36 12:30 Temp 36.8 Pulse 99 90 91 Resp 18 B/P (MAP) 94/63 (73) Pulse Ox 96 98 O2 Delivery Room Air FiO2 21 11/17/21 00:00 Intake Total 680 ml Balance 680 ml Constitutional: AAO x 3, well-developed, other (thin appearing) Respiratory: No accessory muscle use; other (fair to good, bilateral air entry, diminished bases) Cardiovascular: regular rate-rhythm, S1 and S2, systolic murmur (soft DAVIS at card base) Gastrointestional: No tender; soft; No guarding, No rebound; audible bowel sounds, other (ileostomy) Extremities: No clubbing, No cyanosis, No significant edema Neurologic/Psychiatric: oriented x 3, other (moves all limbs equally) Skin: warm/dry; No rash, No ulcerations Results/Procedures: Labs Laboratory Tests 11/16/21 20:32: Glucometer 162H 11/17/21 03:19: Glucometer 92 11/17/21 05:08: White Blood Count 5.8, Red Blood Count 3.19L, Hemoglobin 9.2L, Hematocrit 28L, Mean Corpuscular Volume 89, Mean Corpuscular Hemoglobin 29, Mean Corpuscular Hemoglobin Concent 32, Red Cell Distribution Width 17.7H, Platelet Count 152, Mean Platelet Volume 11.5, Immature Granulocyte % (Auto) 0, Neutrophils (%) (Auto) 61, Lymphocytes (%) (Auto) 34, Monocytes (%) (Auto) 4, Eosinophils (%) (Auto) 1, Basophils (%) (Auto) 0, Neutrophils # (Auto) 3.6, Lymphocytes # (Auto) 2.0, Monocytes # (Auto) 0.2, Eosinophils # (Auto) 0.0, Basophils # (Auto) 0.0, Immature Granulocyte # (Auto) 0.0, Sodium Level 139, Potassium Level 3.9, Chloride Level 104, Carbon Dioxide Level 21, Anion Gap 14, Blood Urea Nitrogen 11, Creatinine 1.20, Estimat Glomerular Filtration Rate 47, BUN/Creatinine Ratio 9, Glucose Level 107H, Calcium Level 6.2L, Corrected Calcium 7.6L, Magnesium Level 1.7, Total Bilirubin 0.4, Aspartate Amino Transf (AST/SGOT) 32, Alanine Aminotransferase (ALT/SGPT) 18, Alkaline Phosphatase 56, Total Protein 5.4L, Albumin 2.3L 11/17/21 11:34: Glucometer 161H Microbiology 11/12/21 MRSA Screen - Final, Complete MRSA not isolated Laboratory Tests 11/16/21 05:15 11/17/21 05:08 A/P: Assessment: Ac systolic CHF (HFrEF) due to ischemic cardiomyopathy - Echo on 11/13/21: LVEF 20-25%, anteroseptal and apical akinesis, mod enlargement of LA, grade 2 diastolic dysfunction, mild MR, PASP 35-40 mmHg Mild troponin elevation - likely type 2 NV due to ac systolic CHF Covid-19 Marked gen weakness and frailty after long hospitalization of pelvic abscess and sepsis (September - October 2021) Transient episode of atrial fibrillation in March 2020 treated with electrical cardioversion by Dr Gaviria. No recurrence reported. 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 difficile colitis; subsequent ileostomy reversal in 2020 H/o hypertension and hyperlipidemia Diabetes mellitus II, followed and managed by primary care physician History of solitary kidney and history of ovarian cancer. Hypothyroidism, followed and managed by primary care physician Rheumatoid arthritis and osteoarthritis Carotid artery stenosis followed by Dr Claudio Plan: * Management remains complex * Given multiple comorbidities (including marked frailty) and given patient's own desire to be managed conservatively at this time, we are continuing conservative therapy * Titrate heart failure meds as tolerated * DVT prophylaxis with enoxaparin * Monitor labs closely and replenish lytes as needed * Dr Muniz managing acute Covid-19 * Management of ileostomy per Dr. Nieves * Dr. Kaufman will be covering Cardiology JESSIE IZAGUIRRE MD FACP [facility] Nov 17, 2021 16:20
[2021-11-17 16:29] VITALS: BP 112/96
[2021-11-17] MEDS: ENOXAPARIN 40 MG/0.4 ML (LOVENOX) SYR SC SCH (16:58)
[2021-11-17 19:36] VITALS: BP 98/62
--- NOTE | 2021-11-17 19:36 | Progress Note - Surgery ---
Subjective Time Seen by a Provider: 18:33 Subjective/Events-last exam I was asked by Dr. Muniz to see pt and make determination regarding "drainage tube". 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 She had been told by other surgeons it couldn't be done and she asked if I would consider doing it. I told her that I thought it was possible and would try for her if she wanted. Reversal was done and pt was doing well, gaining weight. Apparently 2-3 months ago she started feeling sick and went to [facility] in [place], found to have intra-abdominal abscess and probable fistula. She had drain placed and was there for a while and then at [facility]. Now she is in in [place]. Nurse states that the drainage from midline abdominal wall looks pretty to close to her BMs. I asked her what the surgeons from [facility] planned; she said they didn't. Review of Systems General: Fatigue, Malaise, Other (weight loss, down to 99lbs) HEENT: No Visual Changes Pulmonary: No Dyspnea, No Cough Cardiovascular: No: Chest Pain, Palpitations Gastrointestinal: Abdominal Pain, Melena; No: Nausea, Vomiting Neurological: Weakness, Incoordination Objective Exam Vital Signs Date Time Temp Pulse Resp B/P (MAP) Pulse Ox O2 Delivery O2 Flow Rate FiO2 11/17/21 16:29 36.8 93 18 112/96 (101) 95 Room Air 11/17/21 12:30 91 11/17/21 11:36 36.8 90 18 94/63 (73) 98 Room Air 11/17/21 08:39 99 96 21 11/17/21 08:28 96 Room Air 11/17/21 07:38 37.6 102 18 103/64 (77) 97 Room Air 11/17/21 07:15 Room Air 11/17/21 06:32 98 11/17/21 03:54 97 11/17/21 03:22 37.0 105 18 110/75 (87) 98 Room Air 11/16/21 23:11 37.2 101 18 100/67 (78) 99 Room Air 11/16/21 21:00 Room Air 11/16/21 19:41 37.5 107 20 97/63 (74) 97 Room Air I & O 11/17/21 07:00 Intake Total 1080 ml Output Total 30 ml Balance 1050 ml Capillary Refill : General Appearance: Chronically ill, Mild Distress HEENT: PERRL/EOMI, Pharynx Normal Respiratory: Chest Non Tender, Lungs Clear, Normal Breath Sounds, No Accessory Muscle Use, No Respiratory Distress Cardiovascular: Regular Rate, Rhythm, No Murmur Gastrointestinal: soft, no organomegaly, other (midline opening with ostomy bag covering it and drain coming out) Extremity: No Calf Tenderness, No Pedal Edema Neurologic/Psychiatric: Alert, Oriented x3 Skin: Warm/Dry, Pallor Results Lab Laboratory Tests 11/16/21 20:32: Glucometer 162H 11/17/21 03:19: Glucometer 92 11/17/21 05:08: White Blood Count 5.8, Red Blood Count 3.19L, Hemoglobin 9.2L, Hematocrit 28L, Mean Corpuscular Volume 89, Mean Corpuscular Hemoglobin 29, Mean Corpuscular Hemoglobin Concent 32, Red Cell Distribution Width 17.7H, Platelet Count 152, Mean Platelet Volume 11.5, Immature Granulocyte % (Auto) 0, Neutrophils (%) (Auto) 61, Lymphocytes (%) (Auto) 34, Monocytes (%) (Auto) 4, Eosinophils (%) (Auto) 1, Basophils (%) (Auto) 0, Neutrophils # (Auto) 3.6, Lymphocytes # (Auto) 2.0, Monocytes # (Auto) 0.2, Eosinophils # (Auto) 0.0, Basophils # (Auto) 0.0, Immature Granulocyte # (Auto) 0.0, Sodium Level 139, Potassium Level 3.9, Chloride Level 104, Carbon Dioxide Level 21, Anion Gap 14, Blood Urea Nitrogen 11, Creatinine 1.20, Estimat Glomerular Filtration Rate 47, BUN/Creatinine Ratio 9, Glucose Level 107H, Calcium Level 6.2L, Corrected Calcium 7.6L, Magnesium Level 1.7, Total Bilirubin 0.4, Aspartate Amino Transf (AST/SGOT) 32, Alanine Aminotransferase (ALT/SGPT) 18, Alkaline Phosphatase 56, Total Protein 5.4L, Albumin 2.3L 11/17/21 11:34: Glucometer 161H 11/17/21 16:35: Glucometer 156H Microbiology 11/12/21 MRSA Screen - Final, Complete MRSA not isolated Assessment/Plan Assessment/Plan Assessment/Plan S/p ileostomy reversal with fistula and abscess -Drain still in place from [facility] 10/14, on Levofloxacin. I ordered a CT (and viewed images myself) which did not show obvious intra-abdominal fluid collection and the drain appeared to be all subQ (above fascia). However, it appears to be putting out the same output as BM. I don't think the drain tube is doing anything, but want to go over the CT with Radiologist tomorrow. Will most likely pull tube and leave ostomy in place. I did talk to pt about TPN for 6 months to try and get the fistula output to slow down or stop and then possibly surgery could be done. Surgery with high output fistula is nearly impossible. She understood and we will discuss more tomorrow. COVID infection with vaccination and 1 booster -Central line placed -No oxygen required at this time -Currently on isolation for 10 days making her an unlikely candidate for IRF at this time CHF -Echo EF 20-25% -Lasix and spironolactone Type II TX Afib -Lovenox HTN -Well controlled currently Diabetes -SSI CKD3a -BUN/Cr wnl Recent hospitalization at [facility] 10/20-11/11 following stay at [facility] 10/14 for pelvic abscess drainage. Diet: Regular DVT prophylaxis: Lovenox and SCDs YADIRA LONDON DO Nov 17, 2021 19:36
[2021-11-17] MEDS: MELATONIN 3 MG TABLET PO PRN (21:44)
[2021-11-17 23:57] VITALS: BP 90/57
[2021-11-18 04:41] LABS: BASOPHILS % (AUTO) 1 % (0-10); HEMATOCRIT 25 % (35-52); HEMOGLOBIN 8.3 g/dL (11.5-16.0); MEAN CORPUSCULAR HGB CONC 33 g/dL (32-36); NEUTROPHILS # (AUTO) 1.9 10^3/uL (1.8-7.8); WHITE BLOOD COUNT 3.2 10^3/uL (4.3-11.0)
[2021-11-18 04:43] LABS: EOSINOPHILS # (AUTO) 0.1 10^3/uL (0.0-0.3); EOSINOPHILS % (AUTO) 2 % (0-10); LYMPHOCYTES % (AUTO) 32 % (12-44); MEAN CORPUSCULAR HEMOGLOBIN 30 pg (25-34); MEAN CORPUSCULAR VOLUME 89 fL (80-99); MEAN PLATELET VOLUME 11.9 fL (9.0-12.2); MONOCYTES # (AUTO) 0.2 10^3/uL (0.0-1.0); MONOCYTES % (AUTO) 7 % (0-12); NEUTROPHILS % (AUTO) 58 % (42-75); PLATELET COUNT 116 10^3/uL (130-400)
[2021-11-18 04:49] VITALS: BP 104/65
[2021-11-18 04:52] LABS: ALBUMIN 2.1 GM/DL (3.2-4.5)
[2021-11-18 04:53] LABS: POTASSIUM 3.4 MMOL/L (3.6-5.0)
[2021-11-18 04:55] LABS: TOTAL PROTEIN 4.8 GM/DL (6.4-8.2)
[2021-11-18 04:57] LABS: BILIRUBIN,TOTAL 0.4 MG/DL (0.1-1.0)
[2021-11-18 04:59] LABS: CREATININE SERUM 0.97 MG/DL (0.60-1.30)
[2021-11-18 05:01] LABS: MAGNESIUM 1.6 MG/DL (1.6-2.4)
[2021-11-18] MEDS: inSUlin ASPART (NovoLOG) 1 UNIT/0.01 ML (CHARGE PER UNIT) SC SCH ×2 (05:31→11:14)
--- NOTE | 2021-11-18 07:50 | Progress Note - Surgery ---
LUZMA KLINE 11/18/21 0750: Subjective Date Seen by a Provider: Nov 18, 2021 Time Seen by a Provider: 07:16 Subjective/Events-last exam Ms. Garcia is being followed for a drain placed in her ventral abdomen. This morning she reports she is doing well with no pain. She reports minimal drainage from her drain overnight that continues to be a mix of blood and liquid feces. She has no irritation or problems with her drain. She denies trouble breathing or problems related to COVID. She says she is okay with the drain being removed today. Review of Systems General: No Chills, No Fatigue HEENT: No Head Aches, No Visual Changes Pulmonary: No Dyspnea; Cough (Minor) Cardiovascular: No: Chest Pain, Palpitations Gastrointestinal: No: Nausea, Vomiting, Abdominal Pain Neurological: No: Change in speech, Confusion Objective Exam Vital Signs Date Time Temp Pulse Resp B/P (MAP) Pulse Ox O2 Delivery O2 Flow Rate FiO2 11/18/21 04:49 37.2 95 18 104/65 (78) 97 Room Air 11/18/21 01:10 96 11/17/21 23:57 35.8 100 18 90/57 (68) 98 Room Air 11/17/21 20:22 98 Room Air 11/17/21 19:36 36.0 95 18 98/62 (74) 100 Room Air 11/17/21 19:32 98 Room Air 11/17/21 19:00 99 11/17/21 16:29 36.8 93 18 112/96 (101) 95 Room Air 11/17/21 12:30 91 11/17/21 11:36 36.8 90 18 94/63 (73) 98 Room Air 11/17/21 08:39 99 96 21 11/17/21 08:28 96 Room Air I & O 11/18/21 07:00 Intake Total 1010 ml Balance 1010 ml Capillary Refill : General Appearance: No Apparent Distress, Chronically ill HEENT: PERRL/EOMI, Moist Mucous Membranes Neck: Non Tender, Supple Respiratory: Chest Non Tender, Lungs Clear, Normal Breath Sounds, No Accessory Muscle Use, No Respiratory Distress Cardiovascular: Regular Rate, Rhythm, No Murmur, Normal Peripheral Pulses Peripheral Pulses: 2+ Radial Pulses (R), 2+ Radial Pulses (L) Gastrointestinal: non tender, soft; No distended, No guarding; other (midline opening with ostomy bag covering it and drain coming out) Extremity: No Calf Tenderness, No Pedal Edema Neurologic/Psychiatric: Alert, Oriented x3, 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 Skin: Normal Color, Warm/Dry Results Lab Laboratory Tests 11/17/21 11:34: Glucometer 161H 11/17/21 16:35: Glucometer 156H 11/17/21 20:53: Glucometer 133H 11/18/21 04:38: White Blood Count 3.2L, Red Blood Count 2.81L, Hemoglobin 8.3L, Hematocrit 25L, Mean Corpuscular Volume 89, Mean Corpuscular Hemoglobin 30, Mean Corpuscular Hemoglobin Concent 33, Red Cell Distribution Width 17.4H, Platelet Count 116L, Mean Platelet Volume 11.9, Immature Granulocyte % (Auto) 0, Neutrophils (%) (Auto) 58, Lymphocytes (%) (Auto) 32, Monocytes (%) (Auto) 7, Eosinophils (%) (Auto) 2, Basophils (%) (Auto) 1, Neutrophils # (Auto) 1.9, Lymphocytes # (Auto) 1.0, Monocytes # (Auto) 0.2, Eosinophils # (Auto) 0.1, Basophils # (Auto) 0.0, Immature Granulocyte # (Auto) 0.0, Percent Immature Platelet Fraction 7.4, Sodium Level 138, Potassium Level 3.4L, Chloride Level 106, Carbon Dioxide Level 21, Anion Gap 11, Blood Urea Nitrogen 11, Creatinine 0.97, Estimat Glomerular Filtration Rate 61, BUN/Creatinine Ratio 11, Glucose Level 80, Calcium Level 6.0*L, Corrected Calcium 7.5L, Magnesium Level 1.6, Total Bilirubin 0.4, Aspartate Amino Transf (AST/SGOT) 26, Alanine Aminotransferase (ALT/SGPT) 17, Alkaline Phosphatase 51, Total Protein 4.8L, Albumin 2.1L Microbiology 11/12/21 MRSA Screen - Final, Complete MRSA not isolated Assessment/Plan Assessment/Plan Assessment/Plan S/p ileostomy reversal with fistula and abscess Drain still in place from [facility] 10/14, on Levofloxacin. Will most likely pull tube and leave ostomy in place Likely will have to undergo TPN if surgery to close the fistula is to be attempted COVID infection with vaccination and 1 booster -Central line placed -No oxygen required at this time -Currently on isolation for 10 days making her an unlikely candidate for IRF at this time CHF -Echo EF 20-25% -Lasix and spironolactone Type II CA Afib -Lovenox HTN -Well controlled currently Diabetes -SSI CKD3a -BUN/Cr wnl Recent hospitalization at [facility] 10/20-11/11 following stay at [facility] 10/14 for pelvic abscess drainage. CHRIS LONDON DO 11/20/21 2247: Supervisory-Addendum Brief Verification & Attestation Participated in pt care: history, MDM, physical Personally performed: exam, history, MDM, supervision of care Care discussed with: Medical Student Procedures: n/a Verification and Attestation of Medical Student E/M Service A medical student performed and documented this service. I then reviewed and verified all information documented by the medical student and made modifications to such information, when appropriate. I personally performed a physical exam, medical decision making and then discussed any differences between the notes and made revisions as necessary to create one note. Chris London , 11/20/21 , 22:47 LUZMA KLINE Nov 18, 2021 07:50 CHRIS LONDON DO Nov 20, 2021 22:47
[2021-11-18 08:08] VITALS: BP 114/75
--- NOTE | 2021-11-18 09:58 | Physical Therapy Daily Note ---
PT Daily Note-Current Subjective Patient agrees to PT. Mental Status Patient Orientation: Normal For Age Transfers SCALE: Activities may be completed with or without assistive devices. 6-Jpdmcvzges-xiojizv completes the activity by him/herself with no assistance from a helper. 5-Set-up or Clean-up Assistance-helper sets up or cleans up; patient completes activity. Ducor assists only prior to or following the activity. 4-Supervision or Touching Assistance-helper provides verbal cues and/or touching/steadying and/or contact guard assistance as patient completes activity. Assistance may be provided throughout the activity or intermittently. 3-Partial/Moderate Assistance-helper does LESS THAN HALF the effort. Ducor lifts, holds or supports trunk or limbs, but provides less than half the effort. 2-Substantial/Maximal Assistance-helper does MORE THAN HALF the effort. Ducor lifts or holds trunk or limbs and provides more than half the effort. 9-Ipjgterlt-liukol does ALL the effort. Patient does none of the effort to complete the activity. Or, the assistance of 2 or more helpers is required for the patient to complete the activity. If activity was not attempted, code reason: 7-Patient Refused. 9-Not Applicable-not attempted and the patient did not perform the activity befo re the current illness, exacerbation or injury. 10-Not Attempted due to Environmental Limitations-(lack of equipment, weather re straints, etc.). 88-Not Attempted due to Medical Conditions or Safety Concerns. Sit to Stand (QC): 4 Gait Training Distance: 75' Walk 10 feet (QC): 4 Walk 50 ft with 2 Turns(QC): 4 Walk 150 ft (QC): 7 Gait Assistive Device: FWW safe and functional with no deviation Exercises Seated Therapy Exercises: Ankle pumps, Long arc quads Seated Reps: 15 Assessment Patient remains up in recliner with needs met. Patient is currently at A with all mobility safely. PT Trading Floor Operator Goals Trading Floor Operator Goals PT Skilled Nursing Goals Time Frame: Nov 27, 2021 Roll Left & Right (QC): 6 Sit to Lying (QC): 6 Lying-Sitting on Side/Bed(QC): 6 Sit to Stand (QC): 6 Chair/Sqe-ca-Bvrxr Xfer(QC): 6 Toilet Transfer (QC): 6 Walk 10 feet (QC): 6 Walk 50ft with 2 Turns (QC): 6 Walk 150 ft (QC): 6 PT Plan Treatment/Plan Treatment Plan: Continue Plan of Care Treatment Plan: Bed Mobility, Education, Functional Activity Maikel, Functional Strength, Gait, Safety, Therapeutic Exercise, Transfers Treatment Duration: Nov 27, 2021 Frequency: 6 times per week Estimated Hrs Per Day: .25 hour per day Patient and/or Family Agrees t: Yes Time/GCodes Time In: 815 Time Out: 824 Total Billed Treatment Time: 9 Total Billed Treatment 1 visit FA 9 min ARELI JENNINGS PT Nov 18, 2021 09:58
[2021-11-18] MEDS: DOCUSATE SODIUM 100 MG (COLACE) CAP PO SCH (10:01)
[2021-11-18] MEDS: SENNOSIDES 8.6 MG (SENOKOT) TAB PO SCH (10:02)
[2021-11-18] MEDS: FUROSEMIDE 40 MG (LASIX) TAB PO SCH (10:02)
[2021-11-18] MEDS: ASPIRIN 81 MG CHEW (CHILDREN'S ASA) PO SCH (10:02)
[2021-11-18] MEDS: SACUBITRIL/VALSARTAN 24/26 MG (ENTRESTO) TABLET PO SCH (10:02)
[2021-11-18] MEDS: SPIRONOLACTONE 25 MG (ALDACTONE) TAB PO SCH (10:02)
[2021-11-18 10:58] VITALS: BP 96/53
[2021-11-18] MEDS ORDERED: KCL 20 MEQ TAB (K-DUR) PO NR (11:30)
--- NOTE | 2021-11-18 11:39 | Discharge Summary ---
Diagnosis/Chief Complaint Date of Admission Nov 12, 2021 at 16:45 Date of Discharge Discharge Date: Nov 18, 2021 Discharge Diagnosis COVID infection with vaccination and 1 booster -Central line placed -No oxygen required at this time -Currently on isolation for 10 days making her an unlikely candidate for IRF at this time S/p ileostomy reversal with fistula and abscess -General surgery consulted again for possible drain removal -Drain still in place from [facility] 10/14 -Levofloxacin CHF -Echo EF 20-25% -Lasix and spironolactone Type II [place] -Cardiology following, appreciate their recs -Telemetry Afib -Lovenox HTN -Well controlled currently Diabetes -SSI CKD3a -BUN/Cr wnl Recent hospitalization at [facility] 10/20-11/11 following stay at [facility] 10/14 for pelvic abscess drainage. Diet: Regular DVT prophylaxis: Lovenox and SCDs Discharge Summary Discharge Physical Examination Allergies: Coded Allergies: Penicillins (Verified Allergy, Unknown, 08/20/20) raspberry (Verified Allergy, Unknown, 08/20/20) Vitals & I&Os Vital Signs Date Time Temp Pulse Resp B/P (MAP) Pulse Ox O2 Delivery O2 Flow Rate FiO2 11/18/21 12:44 99 11/18/21 12:00 36.9 18 96/53 (67) 98 Room Air 11/17/21 08:39 21 11/13/21 19:36 0.00 General Appearance: Alert, Oriented X3, Cooperative Respiratory: Clear to Auscultation Cardiovascular: Regular Rate Psych/Mental Status: Mental Status NL Hospital Course Was the Problem List Reviewed?: Yes HPI: This is a very complex 76yoWF who had been admitted 11/11 due to fall and found down at home for 18 hours after HH nurse found her (she had no phone access and her life alert had been turned off) following a 3 week hospital course at [facility] (10/20/2021-11/11/2021) due to [facility] hospital stay on 10/14/21 due to confusion from sepsis from pelvic abscess required drainage by IR due to ileostomy reversal leak and subsequent abscess formation. 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 The recent ileostomy reversal was performed by Dr Nieves October 2020. She was admitted for observation and IVF on med-surg and promptly moved to IRF due to weakness and need to strengthen radha or to DC but shortly after she arrived in IRF she was found to have a fever of 38.6 and tachycardia of 142 and sepsis w/u initiated and found to have COVID infection with lactic acidosis not due to sepsis so the decision was made to move to ICU. Pt was placed on levofloxacin for sepsis and pelvic abscess. Pt has hx of CHF, so spironolactone and lasix were also started. Lovenox started for DVT prophylaxis. General surgery was consulted for central line placement and possible drain removal. Dr. Vera placed central line, but drain was not removed at this time. Pt remained stable in ICU and on 11/15 she was transferred to 4th floor and remained in isolation for COVID. Pt was not requiring oxygen at this time. On 11/16 pts colostomy bag began to leak and general surgery was consulted. Dr. Nieves saw pt and plans to remove the drain at some point. Since pt is not requiring oxygen and vitals are within normal limits, decision was made to move pt to inpatient rehab facility. Chemistry panel showed corrected calcium of 7.5, so pt started on Tums three times daily and vitamin D level will be checked. Pt will remain in isolation until 12/02 according to hospitals youth career specialist. Goals of care are rehabilitation and strength training to get pt closer to baseline. Pt medically stable for d/c to IRF today . [employer] Labs (last 24 hrs) Laboratory Tests 11/12/21 18:28: D-Dimer 1.94H, Sodium Level 140, Potassium Level 3.7, Chloride Level 111H, Carbon Dioxide Level 15L, Anion Gap 14, Blood Urea Nitrogen 6L, Creatinine 0.84, Estimat Glomerular Filtration Rate 72, BUN/Creatinine Ratio 7, Glucose Level 137H, Lactic Acid Level 2.99*H, Calcium Level 6.8L, Corrected Calcium 8.2L, Total Bilirubin 0.3, Aspartate Amino Transf (AST/SGOT) 84H, Alanine Aminotransferase (ALT/SGPT) 38, Alkaline Phosphatase 40, Creatine Kinase MB 6.2, Total Protein 5.2L, Albumin 2.3L 11/13/21 04:35: Sodium Level 137, Potassium Level 4.2, Chloride Level 113H, Carbon Dioxide Level 12L, Anion Gap 12, Blood Urea Nitrogen 8, Creatinine 0.83, Estimat Glomerular Filtration Rate 73, BUN/Creatinine Ratio 10, Glucose Level 92, Lactic Acid Level 2.16*H, Calcium Level 6.9L, Corrected Calcium 8.1L, Total Bilirubin 0.4, Aspartate Amino Transf (AST/SGOT) 75H, Alanine Aminotransferase (ALT/SGPT) 38, Alkaline Phosphatase 44, Total Protein 5.8L, Albumin 2.5L, White Blood Count 6.4, Red Blood Count 3.77L, Hemoglobin 11.0#L, Hematocrit 34L, Mean Corpuscular Volume 91, Mean Corpuscular Hemoglobin 29, Mean Corpuscular Hemoglobin Concent 32, Red Cell Distribution Width 19.0H, Platelet Count 219, Mean Platelet Volume 10.7, Immature Granulocyte % (Auto) 0, Neutrophils (%) (Auto) 63, Lymphocytes (%) (Auto) 30, Monocytes (%) (Auto) 5, Eosinophils (%) (Auto) 0, Basophils (%) (Auto) 1, Neutrophils # (Auto) 4.0, Lymphocytes # (Auto) 1.9, Monocytes # (Auto) 0.3, Eosinophils # (Auto) 0.0, Basophils # (Auto) 0.1, Immature Granulocyte # (Auto) 0.0, Phosphorus Level 1.4L, Magnesium Level 1.8 11/13/21 05:25: Blood Gas Puncture Site LEFT RADIAL, Blood Gas Patient Temperature 98.6, Arterial Blood pH 7.41, Arterial Blood Partial Pressure CO2 19*L, Arterial Blood Partial Pressure O2 58L, Arterial Blood HCO3 12*L, Arterial Blood Total CO2 12.5L, Arterial Blood Oxygen Saturation 91L, Arterial Blood Base Excess -11.9L, Donte Test YES-POS, Blood Gas Ventilator Setting NO, Blood Gas Inspired Oxygen ROOM AIR 11/13/21 07:42: Glucometer 107 11/13/21 11:42: Glucometer 159H 11/13/21 14:35: Lactic Acid Level 1.53, Troponin I 1.634*H 11/13/21 16:09: Glucometer 215H 11/13/21 20:28: Glucometer 233H 11/14/21 00:50: Glucometer 97 11/14/21 04:13: Glucometer 70 11/14/21 04:15: White Blood Count 5.5, Red Blood Count 3.11L, Hemoglobin 9.0L, Hematocrit 27L, Mean Corpuscular Volume 88, Mean Corpuscular Hemoglobin 29, Mean Corpuscular Hemoglobin Concent 33, Red Cell Distribution Width 18.7H, Platelet Count 165, Mean Platelet Volume 10.5, Immature Granulocyte % (Auto) 0, Neutrophils (%) (Auto) 64, Lymphocytes (%) (Auto) 29, Monocytes (%) (Auto) 5, Eosinophils (%) (Auto) 1, Basophils (%) (Auto) 1, Neutrophils # (Auto) 3.5, Lymphocytes # (Auto) 1.6, Monocytes # (Auto) 0.3, Eosinophils # (Auto) 0.0, Basophils # (Auto) 0.0, Immature Granulocyte # (Auto) 0.0, Sodium Level 138, Potassium Level 3.2L, Chloride Level 108H, Carbon Dioxide Level 20L, Anion Gap 10, Blood Urea Nitrogen 9, Creatinine 0.77, Estimat Glomerular Filtration Rate 80, BUN/Creatinine Ratio 12, Glucose Level 68L, Lactic Acid Level 1.07, Calcium Level 6.2L, Corrected Calcium 7.8L, Phosphorus Level 1.6L, Magnesium Level 1.6, Total Bilirubin 0.4, Aspartate Amino Transf (AST/SGOT) 45H, Alanine Aminotransferase (ALT/SGPT) 25, Alkaline Phosphatase 36L, Troponin I 1.231*H, Total Protein 4.9L, Albumin 2.0L 11/14/21 05:30: Blood Gas Puncture Site L RAD, Blood Gas Patient Temperature 36.9, Arterial Blood pH 7.52H, Arterial Blood Partial Pressure CO2 24L, Arterial Blood Partial Pressure O2 93, Arterial Blood HCO3 20L, Arterial Blood Total CO2 20.8L, Arterial Blood Oxygen Saturation 97, Arterial Blood Base Excess -2.6L, Donte Test YES-POS, Blood Gas Ventilator Setting NO, Blood Gas Inspired Oxygen ROOM AIR 11/14/21 06:54: Glucometer 117H 11/14/21 07:47: Glucometer 100 11/14/21 11:47: Glucometer 206H 11/14/21 16:23: Glucometer 100 11/14/21 19:02: Glucometer 26*L 11/14/21 19:43: Glucometer 249H 11/14/21 22:05: Glucometer 178H 11/14/21 23:20: Glucometer 110 11/15/21 03:22: Glucometer 82 11/15/21 04:35: White Blood Count 4.3, Red Blood Count 2.95L, Hemoglobin 8.6L, Hematocrit 26L, Mean Corpuscular Volume 88, Mean Corpuscular Hemoglobin 29, Mean Corpuscular Hemoglobin Concent 33, Red Cell Distribution Width 18.4H, Platelet Count 122L, Mean Platelet Volume 10.8, Immature Granulocyte % (Auto) 0, Neutrophils (%) (Auto) 58, Lymphocytes (%) (Auto) 35, Monocytes (%) (Auto) 5, Eosinophils (%) (Auto) 2, Basophils (%) (Auto) 1, Neutrophils # (Auto) 2.5, Lymphocytes # (Auto) 1.5, Monocytes # (Auto) 0.2, Eosinophils # (Auto) 0.1, Basophils # (Auto) 0.0, Immature Granulocyte # (Auto) 0.0, Sodium Level 136, Potassium Level 3.4L, Chloride Level 104, Carbon Dioxide Level 23, Anion Gap 9, Blood Urea Nitrogen 10, Creatinine 0.79, Estimat Glomerular Filtration Rate 78, BUN/Creatinine Ratio 13, Glucose Level 89, Calcium Level 6.1L, Corrected Calcium 7.8L, Phosphorus L evel 1.2L, Magnesium Level 1.9, Total Bilirubin 0.4, Aspartate Amino Transf (AST/SGOT) 39H, Alanine Aminotransferase (ALT/SGPT) 22, Alkaline Phosphatase 39L , Total Protein 4.6L, Albumin 1.9L 11/15/21 05:05: Blood Gas Puncture Site RIGHT RADIAL, Blood Gas Patient Temperature 36.8, Arterial Blood pH 7.51H, Arterial Blood Partial Pressure CO2 32L, Arterial Blood Partial Pressure O2 57L, Arterial Blood HCO3 26, Arterial Blood Total CO2 26.4, Arterial Blood Oxygen Saturation 92L, Arterial Blood Base Excess 2.5, Donte Test YES-POS, Blood Gas Ventilator Setting NO, Blood Gas Inspired Oxygen ROOM AIR 11/15/21 08:46: Glucometer 106 11/16/21 05:12: Glucometer 58*L 11/16/21 05:15: White Blood Count 5.3, Red Blood Count 3.29L, Hemoglobin 9.5L, Hematocrit 29L, Mean Corpuscular Volume 89, Mean Corpuscular Hemoglobin 29, Mean Corpuscular Hemoglobin Concent 32, Red Cell Distribution Width 17.9H, Platelet Count 142, Mean Platelet Volume 11.7, Immature Granulocyte % (Auto) 0, Neutrophils (%) (Auto) 71, Lymphocytes (%) (Auto) 24, Monocytes (%) (Auto) 3, Eosinophils (%) (Auto) 1, Basophils (%) (Auto) 0, Neutrophils # (Auto) 3.8, Lymphocytes # (Auto) 1.3, Monocytes # (Auto) 0.2, Eosinophils # (Auto) 0.1, Basophils # (Auto) 0.0, Immature Granulocyte # (Auto) 0.0, Sodium Level 138, Potassium Level 3.8, Chloride Level 103, Carbon Dioxide Level 22, Anion Gap 13, Blood Urea Nitrogen 10, Creatinine 1.00, Estimat Glomerular Filtration Rate 59, BUN/Creatinine Ratio 10, Glucose Level 61L, Calcium Level 6.2L, Corrected Calcium 7.6L, Magnesium Level 1.7, Total Bilirubin 0.4, Aspartate Amino Transf (AST/SGOT) 40H, Alanine Aminotransferase (ALT/SGPT) 24, Alkaline Phosphatase 53, Total Protein 5.1L, Albumin 2.2L 11/16/21 11:04: Glucometer 242H 11/16/21 15:22: Glucometer 155H 11/16/21 20:32: Glucometer 162H 11/17/21 03:19: Glucometer 92 11/17/21 05:08: White Blood Count 5.8, Red Blood Count 3.19L, Hemoglobin 9.2L, Hematocrit 28L, Mean Corpuscular Volume 89, Mean Corpuscular Hemoglobin 29, Mean Corpuscular Hemoglobin Concent 32, Red Cell Distribution Width 17.7H, Platelet Count 152, Mean Platelet Volume 11.5, Immature Granulocyte % (Auto) 0, Neutrophils (%) (Auto) 61, Lymphocytes (%) (Auto) 34, Monocytes (%) (Auto) 4, Eosinophils (%) (Auto) 1, Basophils (%) (Auto) 0, Neutrophils # (Auto) 3.6, Lymphocytes # (Auto) 2.0, Monocytes # (Auto) 0.2, Eosinophils # (Auto) 0.0, Basophils # (Auto) 0.0, Immature Granulocyte # (Auto) 0.0, Sodium Level 139, Potassium Level 3.9, Chloride Level 104, Carbon Dioxide Level 21, Anion Gap 14, Blood Urea Nitrogen 11, Creatinine 1.20, Estimat Glomerular Filtration Rate 47, BUN/Creatinine Ratio 9, Glucose Level 107H, Calcium Level 6.2L, Corrected Calcium 7.6L, Magnesium Level 1.7, Total Bilirubin 0.4, Aspartate Amino Transf (AST/SGOT) 32, Alanine Aminotransferase (ALT/SGPT) 18, Alkaline Phosphatase 56, Total Protein 5.4L, Albumin 2.3L 11/17/21 11:34: Glucometer 161H 11/17/21 16:35: Glucometer 156H 11/17/21 20:53: Glucometer 133H 11/18/21 04:38: White Blood Count 3.2L, Red Blood Count 2.81L, Hemoglobin 8.3L, Hematocrit 25L, Mean Corpuscular Volume 89, Mean Corpuscular Hemoglobin 30, Mean Corpuscular H emoglobin Concent 33, Red Cell Distribution Width 17.4H, Platelet Count 116L, Mean Platelet Volume 11.9, Immature Granulocyte % (Auto) 0, Neutrophils (%) (Auto) 58, Lymphocytes (%) (Auto) 32, Monocytes (%) (Auto) 7, Eosinophils (%) (Auto) 2, Basophils (%) (Auto) 1, Neutrophils # (Auto) 1.9, Lymphocytes # (Auto) 1.0, Monocytes # (Auto) 0.2, Eosinophils # (Auto) 0.1, Basophils # (Auto) 0.0, Immature Granulocyte # (Auto) 0.0, Percent Immature Platelet Fraction 7.4, Sod ium Level 138, Potassium Level 3.4L, Chloride Level 106, Carbon Dioxide Level 21, Anion Gap 11, Blood Urea Nitrogen 11, Creatinine 0.97, Estimat Glomerular Filtration Rate 61, BUN/Creatinine Ratio 11, Glucose Level 80, Calcium Level 6.0*L, Corrected Calcium 7.5L, Magnesium Level 1.6, Total Bilirubin 0.4, Aspartate Amino Transf (AST/SGOT) 26, Alanine Aminotransferase (ALT/SGPT) 17, Alkaline Phosphatase 51, Total Protein 4.8L, Albumin 2.1L 11/18/21 10:56: Glucometer 184H 11/18/21 17:00: Microbiology 11/12/21 MRSA Screen - Final, Complete MRSA not isolated Pending Labs Microbiology Date/Time Source Procedure Growth Status 11/12/21 17:36 Nasal MRSA Screen - Final MRSA not isolated Complete Laboratory Tests 11/12/21 18:28: D-Dimer 1.94, Sodium Level 140, Potassium Level 3.7, Chloride Level 111, Carbon Dioxide Level 15, Anion Gap 14, Blood Urea Nitrogen 6, Creatinine 0.84, Estimat Glomerular Filtration Rate 72, BUN/Creatinine Ratio 7, Glucose Level 137, Lactic Acid Level 2.99, Calcium Level 6.8, Corrected Calcium 8.2, Total Bilirubin 0.3, Aspartate Amino Transf (AST/SGOT) 84, Alanine Aminotransferase (ALT/SGPT) 38, Alkaline Phosphatase 40, Creatine Kinase MB 6.2, Total Protein 5.2, Albumin 2.3 11/13/21 04:35: Sodium Level 137, Potassium Level 4.2, Chloride Level 113, Carbon Dioxide Level 12, Anion Gap 12, Blood Urea Nitrogen 8, Creatinine 0.83, Estimat Glomerular Filtration Rate 73, BUN/Creatinine Ratio 10, Glucose Level 92, Lactic Acid Level 2.16, Calcium Level 6.9, Corrected Calcium 8.1, Total Bilirubin 0.4, Aspartate Amino Transf (AST/SGOT) 75, Alanine Aminotransferase (ALT/SGPT) 38, Alkaline Phosphatase 44, Total Protein 5.8, Albumin 2.5, White Blood Count 6.4, Red Blood Count 3.77, Hemoglobin 11.0, Hematocrit 34, Mean Corpuscular Volume 91, Mean Corpuscular Hemoglobin 29, Mean Corpuscular Hemoglobin Concent 32, Red Cell Distribution Width 19.0, Platelet Count 219, Mean Platelet Volume 10.7, Immature Granulocyte % (Auto) 0, Neutrophils (%) (Auto) 63, Lymphocytes (%) (Auto) 30, Monocytes (%) (Auto) 5, Eosinophils (%) (Auto) 0, Basophils (%) (Auto) 1, Neutrophils # (Auto) 4.0, Lymphocytes # (Auto) 1.9, Monocytes # (Auto) 0.3, Eosinophils # (Auto) 0.0, Basophils # (Auto) 0.1, Immature Granulocyte # (Auto) 0.0, Phosphorus Level 1.4, Magnesium Level 1.8 11/13/21 05:25: Blood Gas Puncture Site LEFT RADIAL, Blood Gas Patient Temperature 98.6, Arterial Blood pH 7.41, Arterial Blood Partial Pressure CO2 19, Arterial Blood Partial Pressure O2 58, Arterial Blood HCO3 12, Arterial Blood Total CO2 12.5, Arterial Blood Oxygen Saturation 91, Arterial Blood Base Excess -11.9, Donte Test YES-POS, Blood Gas Ventilator Setting NO, Blood Gas Inspired Oxygen ROOM AIR 11/13/21 07:42: Glucometer 107 11/13/21 11:42: Glucometer 159 11/13/21 14:35: Lactic Acid Level 1.53, Troponin I 1.634 11/13/21 16:09: Glucometer 215 11/13/21 20:28: Glucometer 233 11/14/21 00:50: Glucometer 97 11/14/21 04:13: Glucometer 70 11/14/21 04:15: White Blood Count 5.5, Red Blood Count 3.11, Hemoglobin 9.0, Hematocrit 27, Mean Corpuscular Volume 88, Mean Corpuscular Hemoglobin 29, Mean Corpuscular Hemoglobin Concent 33, Red Cell Distribution Width 18.7, Platelet Count 165, Mean Platelet Volume 10.5, Immature Granulocyte % (Auto) 0, Neutrophils (%) (Auto) 64, Lymphocytes (%) (Auto) 29, Monocytes (%) (Auto) 5, Eosinophils (%) (Auto) 1, Basophils (%) (Auto) 1, Neutrophils # (Auto) 3.5, Lymphocytes # (Auto) 1.6, Monocytes # (Auto) 0.3, Eosinophils # (Auto) 0.0, Basophils # (Auto) 0.0, Immature Granulocyte # (Auto) 0.0, Sodium Level 138, Potassium Level 3.2, Chloride Level 108, Carbon Dioxide Level 20, Anion Gap 10, Blood Urea Nitrogen 9, Creatinine 0.77, Estimat Glomerular Filtration Rate 80, BUN/Creatinine Ratio 12, Glucose Level 68, Lactic Acid Level 1.07, Calcium Level 6.2, Corrected Calcium 7.8, Phosphorus Level 1.6, Magnesium Level 1.6, Total Bilirubin 0.4, Aspartate Amino Transf (AST/SGOT) 45, Alanine Aminotransferase (ALT/SGPT) 25, Alkaline Phosphatase 36, Troponin I 1.231, Total Protein 4.9, Albumin 2.0 11/14/21 05:30: Blood Gas Puncture Site L RAD, Blood Gas Patient Temperature 36.9, Arterial Blood pH 7.52, Arterial Blood Partial Pressure CO2 24, Arterial Blood Partial Pressure O2 93, Arterial Blood HCO3 20, Arterial Blood Total CO2 20.8, Arterial Blood Oxygen Saturation 97, Arterial Blood Base Excess -2.6, Donte Test YES-POS, Blood Gas Ventilator Setting NO, Blood Gas Inspired Oxygen ROOM AIR 11/14/21 06:54: Glucometer 117 11/14/21 07:47: Glucometer 100 11/14/21 11:47: Glucometer 206 11/14/21 16:23: Glucometer 100 11/14/21 19:02: Glucometer 26 11/14/21 19:43: Glucometer 249 11/14/21 22:05: Glucometer 178 11/14/21 23:20: Glucometer 110 11/15/21 03:22: Glucometer 82 11/15/21 04:35: White Blood Count 4.3, Red Blood Count 2.95, Hemoglobin 8.6, Hematocrit 26, Mean Corpuscular Volume 88, Mean Corpuscular Hemoglobin 29, Mean Corpuscular Hemoglobin Concent 33, Red Cell Distribution Width 18.4, Platelet Count 122, Mean Platelet Volume 10.8, Immature Granulocyte % (Auto) 0, Neutrophils (%) (Auto) 58, Lymphocytes (%) (Auto) 35, Monocytes (%) (Auto) 5, Eosinophils (%) (Auto) 2, Basophils (%) (Auto) 1, Neutrophils # (Auto) 2.5, Lymphocytes # (Auto) 1.5, Monocytes # (Auto) 0.2, Eosinophils # (Auto) 0.1, Basophils # (Auto) 0.0, Immature Granulocyte # (Auto) 0.0, Sodium Level 136, Potassium Level 3.4, Chloride Level 104, Carbon Dioxide Level 23, Anion Gap 9, Blood Urea Nitrogen 10, Creatinine 0.79, Estimat Glomerular Filtration Rate 78, BUN/Creatinine Ratio 13, Glucose Level 89, Calcium Level 6.1, Corrected Calcium 7.8, Phosphorus Level 1.2, Magnesium Level 1.9, Total Bilirubin 0.4, Aspartate Amino Transf (AST/SGOT) 39, Alanine Aminotransferase (ALT/SGPT) 22, Alkaline Phosphatase 39, Total Protein 4.6, Albumin 1.9 11/15/21 05:05: Blood Gas Puncture Site RIGHT RADIAL, Blood Gas Patient Temperature 36.8, Arterial Blood pH 7.51, Arterial Blood Partial Pressure CO2 32, Arterial Blood Partial Pressure O2 57, Arterial Blood HCO3 26, Arterial Blood Total CO2 26.4, Arterial Blood Oxygen Saturation 92, Arterial Blood Base Excess 2.5, Donte Test YES-POS, Blood Gas Ventilator Setting NO, Blood Gas Inspired Oxygen ROOM AIR 11/15/21 08:46: Glucometer 106 11/16/21 05:12: Glucometer 58 11/16/21 05:15: White Blood Count 5.3, Red Blood Count 3.29, Hemoglobin 9.5, Hematocrit 29, Mean Corpuscular Volume 89, Mean Corpuscular Hemoglobin 29, Mean Corpuscular Hemoglobin Concent 32, Red Cell Distribution Width 17.9, Platelet Count 142, Mean Platelet Volume 11.7, Immature Granulocyte % (Auto) 0, Neutrophils (%) (Auto) 71, Lymphocytes (%) (Auto) 24, Monocytes (%) (Auto) 3, Eosinophils (%) (Auto) 1, Basophils (%) (Auto) 0, Neutrophils # (Auto) 3.8, Lymphocytes # (Auto) 1.3, Monocytes # (Auto) 0.2, Eosinophils # (Auto) 0.1, Basophils # (Auto) 0.0, Immature Granulocyte # (Auto) 0.0, Sodium Level 138, Potassium Level 3.8, Chloride Level 103, Carbon Dioxide Level 22, Anion Gap 13, Blood Urea Nitrogen 10, Creatinine 1.00, Estimat Glomerular Filtration Rate 59, BUN/Creatinine Ratio 10, Glucose Level 61, Calcium Level 6.2, Corrected Calcium 7.6, Magnesium Level 1.7, Total Bilirubin 0.4, Aspartate Amino Transf (AST/SGOT) 40, Alanine Aminotransferase (ALT/SGPT) 24, Alkaline Phosphatase 53, Total Protein 5.1, Albumin 2.2 11/16/21 11:04: Glucometer 242 11/16/21 15:22: Glucometer 155 11/16/21 20:32: Glucometer 162 11/17/21 03:19: Glucometer 92 11/17/21 05:08: White Blood Count 5.8, Red Blood Count 3.19, Hemoglobin 9.2, Hematocrit 28, Mean Corpuscular Volume 89, Mean Corpuscular Hemoglobin 29, Mean Corpuscular Hemoglobin Concent 32, Red Cell Distribution Width 17.7, Platelet Count 152, M daniel Platelet Volume 11.5, Immature Granulocyte % (Auto) 0, Neutrophils (%) (Auto) 61, Lymphocytes (%) (Auto) 34, Monocytes (%) (Auto) 4, Eosinophils (%) (Auto) 1, Basophils (%) (Auto) 0, Neutrophils # (Auto) 3.6, Lymphocytes # (Auto) 2.0, Monocytes # (Auto) 0.2, Eosinophils # (Auto) 0.0, Basophils # (Auto) 0.0, Immature Granulocyte # (Auto) 0.0, Sodium Level 139, Potassium Level 3.9, Chloride Level 104, Carbon Dioxide Level 21, Anion Gap 14, Blood Urea Nitrogen 11, Creatinine 1.20, Estimat Glomerular Filtration Rate 47, BUN/Creatinine Ratio 9, Glucose Level 107, Calcium Level 6.2, Corrected Calcium 7.6, Magnesium Level 1.7, Total Bilirubin 0.4, Aspartate Amino Transf (AST/SGOT) 32, Alanine Aminotransferase (ALT/SGPT) 18, Alkaline Phosphatase 56, Total Protein 5.4, Albumin 2.3 11/17/21 11:34: Glucometer 161 11/17/21 16:35: Glucometer 156 11/17/21 20:53: Glucometer 133 11/18/21 04:38: White Blood Count 3.2, Red Blood Count 2.81, Hemoglobin 8.3, Hematocrit 25, Mean Corpuscular Volume 89, Mean Corpuscular Hemoglobin 30, Mean Corpuscular Hemoglobin Concent 33, Red Cell Distribution Width 17.4, Platelet Count 116, Mean Platelet Volume 11.9, Immature Granulocyte % (Auto) 0, Neutrophils (%) (Auto) 58, Lymphocytes (%) (Auto) 32, Monocytes (%) (Auto) 7, Eosinophils (%) (Auto) 2, Basophils (%) (Auto) 1, Neutrophils # (Auto) 1.9, Lymphocytes # (Auto) 1.0, Monocytes # (Auto) 0.2, Eosinophils # (Auto) 0.1, Basophils # (Auto) 0.0, Immature Granulocyte # (Auto) 0.0, Percent Immature Platelet Fraction 7.4, Sodium Level 138, Potassium Level 3.4, Chloride Level 106, Carbon Dioxide Level 21, Anion Gap 11, Blood Urea Nitrogen 11, Creatinine 0.97, Estimat Glomerular Filtration Rate 61, BUN/Creatinine Ratio 11, Glucose Level 80, Calcium Level 6.0, Corrected Calcium 7.5, Magnesium Level 1.6, Total Bilirubin 0.4, Aspartate Amino Transf (AST/SGOT) 26, Alanine Aminotransferase (ALT/SGPT) 17, Alkaline Phosphatase 51, Total Protein 4.8, Albumin 2.1 11/18/21 10:56: Glucometer 184 11/18/21 17:00: Iron Level [Pending], Total Iron Binding Capacity [Pending], Unsaturated Iron Binding Capacity [Pending], Transferrin % Saturation [Pending], Ferritin [Pending], Vitamin B12 Level [Pending], Vitamin D 25-Hydroxy [Pending] Discharge Home Medications: Active Scripts Active Reported Tylenol Arthritis (Acetaminophen) 650 Mg Tablet.er 650 Mg PO Q6H PRN Vitamin D3 (Cholecalciferol (Vitamin D3)) 25 Mcg (1000 Unit) Capsule 25 Mcg PO DAILY Timolol Maleate 0.5% (Timolol Maleate) 0.5 % Drops 1 Drop OU HS Florastor (Saccharomyces Boulardii) 250 Mg Capsule 250 Mg PO DAILY Oxybutynin Chloride 5 Mg Tablet 5 Mg PO BID Nystatin 100,000 Unit/Ml Oral.susp 5 Ml PO QID SWISH AND SWALLOW Levothyroxine Sodium 125 Mcg Tablet 125 Mcg PO DAILY Xalatan (Latanoprost) 0.005 % Drops 1 Drop OU HS Famotidine 20 Mg Tablet 20 Mg PO DAILY Docusate Sodium 100 Mg Tablet 100 Mg PO BID HOLD FOR DIARRHEA Carvedilol 25 Mg Tablet 25 Mg PO BID HOLD FOR SBP LESS THAN 100 Atorvastatin Calcium 40 Mg Tablet 40 Mg PO 1700 Iron (Ferrous Sulfate) 325 Mg Tablet 325 Mg PO BID Leflunomide 20 Mg Tablet 20 Mg PO Q48H Amitriptyline HCl 100 Mg Tablet 100 Mg PO HS Fenofibrate 160 Mg Tablet 160 Mg PO HS Cetirizine HCl 10 Mg Tablet 10 Mg PO DAILY Instructions to patient/family Please see electronic discharge instructions given to patient. Diagnosis/Problems Diagnosis/Problems (1) COVID (2) Physical debility Status: Acute (3) Rhabdomyolysis Status: Acute (4) Hypoglycemia Status: Acute (5) Dehydration Status: Acute (6) Fall Status: Acute (7) Fistula (8) Ovarian cancer in remission (9) Solitary kidney (10) Myopathy (11) Hypothyroidism (12) Diabetes mellitus (13) Atrial fibrillation LORENZO MIMS DO Nov 18, 2021 11:39
[2021-11-18] MEDS ORDERED: VITAMIN D3 125 MCG (5,000 UNITS) CAPSULE PO SCH (11:45)
[2021-11-18 12:00] VITALS: BP 96/53
--- NOTE | 2021-11-18 12:17 | Progress Note ---
ONOFRE MCDUFFIE A MED STUDENT 11/18/21 1217: Progress Note HPI: This is a very complex 76yoWF who had been admitted 11/11 due to fall and found down at home for 18 hours after HH nurse found her (she had no phone access and her life alert had been turned off) following a 3 week hospital course at [place] (10/20/2021-11/11/2021) due to [facility] stay on 10/14/21 due to confusion from sepsis from pelvic abscess required drainage by IR due to ileostomy reversal leak and subsequent abscess formation. 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 The recent ileostomy reversal was performed by Dr Nieves October 2020. She was admitted for observation and IVF on med-surg and promptly moved to IRF due to weakness and need to strengthen prior to DC but shortly after she arrived in IRF she was found to have a fever of 38.6 and tachycardia of 142 and sepsis w/u initiated and found to have COVID infection with lactic acidosis not due to sepsis so the decision was made to move to ICU. Pt was placed on levofloxacin for sepsis and pelvic abscess. Pt has hx of CHF, so spironolactone and lasix were also started. Lovenox started for DVT prophylaxis. General surgery was consulted for central line placement and possible drain removal. Dr. Vera placed central line, but drain was not removed at this time. Pt remained stable in ICU and on 11/15 she was transferred to 4th floor and remained in isolation for COVID. Pt was not requiring oxygen at this time. On 11/16 pts colostomy bag began to leak and general surgery was consulted. Dr. Nieves saw pt and plans to remove the drain at some point. Since pt is not requiring oxygen and vitals are within normal limits, decision was made to move pt to inpatient rehab facility. Chemistry panel showed corrected calcium of 7.5, so pt started on Tums three times daily and vitamin D level will be checked. Pt will remain in isolation until 12/02 according to hospitals marketing programs specialist. Goals of care are rehabilitation and strength training to get pt closer to baseline. Pt medically stable for d/c to IRF today . NENA MIMS DO 11/18/212022: Supervisory-Addendum Brief Verification & Attestation Participated in pt care: history, MDM, physical Personally performed: exam, history, MDM, supervision of care Care discussed with: Medical Student Procedures: n/a Results interpretation: Verified all documentation Verification and Attestation of Medical Student E/M Service A medical student performed and documented this service in my presence. I reviewed and verified all information documented by the medical student and made modifications to such information, when appropriate. I personally performed the physical exam and medical decision making. Nena Mims, Nov 18, 2021,20:23 ONOFRE MCDUFFIE MED STUDENT Nov 18, 2021 12:17 NENA MIMS DO Nov 18, 2021 20:23
[2021-11-18] MEDS ORDERED: VITAMIN D3 125 MCG (5,000 UNITS) CAPSULE ONE (13:33)
[2021-11-18] MEDS: ENOXAPARIN 40 MG/0.4 ML (LOVENOX) SYR SC SCH (13:38)
[2021-11-18] MEDS: CALCIUM CARBONATE 500 MG (TUMS) TAB.CHEW PO SCH ×2 (13:38→13:39)
[2021-11-19] MEDS ORDERED: KCL 20 MEQ TAB (K-DUR) PO SCH (07:00)
--- NOTE | 2021-11-22 13:59 | Physician Query Clarification ---
PQ-Uncertain Diagnosis Admission/Discharge Admission Date: Nov 12, 2021 at 16:45 Discharge Date: Nov 18, 2021 at 16:02 Dr. Muniz, The medical record reflects the following clinical scenario: History/Risk Factors: covid, hx sepsis with pelvic abscess 10/14/21 Clinical Findings: T 38.6, P 142, R 19, WBC 6/4 Treatment: IV Levaquin Question: Is sepsis a clinically valid diagnosis? Sepsis was documented in the body of the DS but not included in the final diagnoses with no further documentation in the medical record. Please document a response in Progress Note or Discharge Summary. 1. Yes, clinically valid, condition resolved. 2. No, condition ruled out. 3. Other, with explanation of clinical findings. 4. Undetermined, no explanation for clinical findings. PHYSICIAN RESPONSE Diagnosis clinically valid: No, conditon ruled out In responding to this query, please exercise your independent professional judgment. The purpose of this communication is to more accurately reflect the complexity of your patients condition. The fact that a question is asked does not imply that any particular answer is desired or expected. Thank you for your timely response to this clarification. Requestors name: Nathaniel THIS PHYSICIAN QUERY FORM IS A PERMANENT PART OF THE MEDICAL RECORD NATHANIEL CHAVIS Nov 22, 2021 13:59 LORENZO MUNIZ DO Nov 22, 2021 20:50
--- NOTE | 2021-11-22 14:07 | Physician Query Clarification ---
PQ-Uncertain Diagnosis Admission/Discharge Admission Date: Nov 12, 2021 at 16:45 Discharge Date: Nov 18, 2021 at 16:02 Dr. Muniz, The medical record reflects the following clinical scenario: History/Risk Factors: Covid, hx of sepsis w/pelvic abscess 10/14/21 Clinical Findings: CT abd/pelvis - Percutaneous drainage catheter within the midline abdominal incision without obvious fluid collection. 2. No other acute abnormality in the abdomen or pelvis. 11/[address] Nieves - Drain still in place from [facility] 10/14, on Levofloxacin. I ordered a CT (and viewed images myself) which did not show obvious intra- abdominal fluid collection and the drain appeared to be all subQ (above fascia). However, it appears to be putting out the same output as BM. I don't think the drain tube is doing anything, but want to go over the CT with Radiologist tomorrow. Treatment: IV Levofloxacin Question: Is pelvic abscess a clinically valid diagnosis? Pelvic abscess was documented in the body of the DS but not included in the final diagnoses with no further documentation in the medical record. Please document a response in Progress Note or Discharge Summary. 1. Yes, clinically valid, condition resolved. 2. No, condition ruled out. 3. Other, with explanation of clinical findings. 4. Undetermined, no explanation for clinical findings. PHYSICIAN RESPONSE Diagnosis clinically valid: No, conditon ruled out In responding to this query, please exercise your independent professional judgment. The purpose of this communication is to more accurately reflect the complexity of your patients condition. The fact that a question is asked does not imply that any particular answer is desired or expected. Thank you for your timely response to this clarification. Requestors name: Nathaniel THIS PHYSICIAN QUERY FORM IS A PERMANENT PART OF THE MEDICAL RECORD NATHANIEL CHAVIS Nov 22, 2021 14:07 LORENZO MUNIZ DO Nov 22, 2021 20:50
== END 2021-11-18 16:02 | DRG 177 ==
LOC: ICU 16:45 → 4TH 11-15 13:50
PROVIDERS: ADMIT Internal Medicine; ATTEND Internal Medicine
PROC: 8E0ZXY6 Isolation (ICD-10-PCS; principal; 2021-11-12)
DX: U07.1 COVID-19 (principal); I50.21 Acute systolic (congestive) heart failure; I21.A1 Myocardial infarction type 2; E87.2 Acidosis; I13.0 Hypertensive heart and chronic kidney disease with heart failure and stage 1 through stage 4 chronic kidney disease, or unspecified chronic kidney disease; K63.2 Fistula of intestine; E11.22 Type 2 diabetes mellitus with diabetic chronic kidney disease; E11.65 Type 2 diabetes mellitus with hyperglycemia; N18.31 Chronic kidney disease, stage 3a; I25.5 Ischemic cardiomyopathy; E86.0 Dehydration; G72.9 Myopathy, unspecified; I48.91 Unspecified atrial fibrillation; D63.8 Anemia in other chronic diseases classified elsewhere; E78.00 Pure hypercholesterolemia, unspecified; K21.9 Gastro-esophageal reflux disease without esophagitis; M19.91 Primary osteoarthritis, unspecified site; M06.9 Rheumatoid arthritis, unspecified; E03.9 Hypothyroidism, unspecified; Z85.43 Personal history of malignant neoplasm of ovary; Z90.5 Acquired absence of kidney; Z87.891 Personal history of nicotine dependence; Z88.0 Allergy status to penicillin; Z91.018 Allergy to other foods; Z73.0 Burn-out
CPT/HCPCS: 36415; 36600; 71045; 74176; 80053; 82306; 82553; 82607; 82728; 82805; 82947; 83540; 83550; 83605; 83735; 84100; 84484; 85025; 85379; 87081; 93005; 93306; 94760

== ENCOUNTER 2021-11-18 11:48 | Inpatient (IN) | payer MEDICARE ==
[~2021-11-18] VITALS: Ht 157.5 cm; Wt 47.9 kg
--- NOTE | 2021-11-18 11:56 | PM&R Post Admission Assessment ---
PM&R Date of Visit: Nov 18, 2021 Time of Visit: 13:30 History of Present Illness CC: COVID myopathy HPI: This is a 76yoWF clinic patient of [facility] who presents to IRF after a lengthy hospital course after she was transferred from IRF last week after 2 hours when fever started and w/u revealed COVID infection with hypotension so she was moved to ICU and ultimately moved to the floor. She remains in isolation. No O2 required. Since she was in ICU but not requiring O2 she will still remain in isolation for 20 days. No pain reported. Drain hopefully will be removed by surgery Dr Nieves. Nutrition is very poor with pre-albumin at 11. HPI: This is a very complex 76yoWF who had been admitted 11/11 due to fall and found down at home for 18 hours after HH nurse found her (she had no phone access and her life alert had been turned off) following a 3 week hospital course at [place] [facility] (10/20/2021-11/11/2021) due to [facility] hospital stay on 10/14/21 due to confusion from sepsis from pelvic abscess required drainage by IR due to ileostomy reversal leak and subsequent abscess formation. 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 The recent ileostomy reversal was performed by Dr Nieevs October 2020. She was admitted for observation and IVF on med-surg and promptly moved to IRF due to weakness and need to strengthen prior to DC but shortly after she arrived in IRF she was found to have a fever of 38.6 and tachycardia of 142 and sepsis w/u initiated and found to have COVID infection with lactic acidosis not due to sepsis so the decision was made to move to ICU. Pt was placed on levofloxacin for sepsis and pelvic abscess. Pt has hx of CHF, so spironolactone and lasix were also started. Lovenox started for DVT prophylaxis. General surgery was consulted for central line placement and possible drain removal. Dr. Vera placed central line, but drain was not removed at this time. Pt remained stable in ICU and on 11/15 she was transferred to 4th floor and remained in isolation for COVID. Pt was not requiring oxygen at this time. On 11/16 pts colostomy bag began to leak and general surgery was consulted. Dr. Nieves saw pt and plans to remove the drain at some point. Since pt is not requiring oxygen and vitals are within normal limits, decision was made to move pt to inpatient rehab facility. Chemistry panel showed corrected calcium of 7.5, so pt started on Tums three times daily and vitamin D level will be checked. Pt will remain in isolation until 12/[address] [facility] infection control s pecialist. Goals of care are rehabilitation and strength training to get pt closer to baseline. Pt medically stable for d/c to IRF today . ONOFRE MCDUFFIE A MED STUDENT Past Myykgmi-Lohtsm-Ddhpxl Hx Past Med/Social Hx: Reviewed Nursing Past Med/Soc Hx, Reviewed and Corrections made Patient Social History Marrital Status: single Employed/Student: retired Alcohol Use: Denies Use Smoking Status: Former Smoker Former Smoker, Quit: Jul 28, 1984 Type Used: Cigarettes 2nd Hand Smoke Exposure: No Recent Hopitalizations: No Immunizations Up To Date Date of Pneumonia Vaccine: Feb 06, 2020 Date of Influenza Vaccine: Feb 05, 2020 Seasonal Allergies Seasonal Allergies: No Past Medical History Surgeries: Abdominal, Bowel Surgery, Cardiac, Gallbladder, Hysterectomy, Nephrectomy, Oophorectomy, Tonsillectomy Currently Using CPAP: No Cardiac: Atrial Fibrillation, High Cholesterol, Hypertension Reproductive: Yes (OVARIAN CANCER) Sexually Transmitted Disease: No HIV/AIDS: No Hysterectomy, Menopausal Genitourinary: Bladder Infection solitary kidney Gastrointestinal: Colitis, Gastroesophageal Reflux, Liver Disease/Jaundice, C- Diff, Gall Bladder Disease Musculoskeletal: Arthritis, Rheumatoid Arthritis Endocrine: Hypothyroidsim, Diabetes, Non-Insulin dep Cancer: Ovarian Did You Recieve Any Treatments: Yes What Type of Treatment Did You: Surgical Intervention History of Blood Disorders: No Adverse Reaction to Blood Tucker: No Family History Arthritis 19 MOTHER Cardiovascular disease 19 MOTHER Diabetes mellitus 19 FATHER 19 MOTHER No Pertinent Family Hx PAST MEDICAL /SURGICAL HISTORY: -12/2019--HAD SEVERE C. DIFFICILE COLITIS--ADMITTED TO [facility] 01/21/20. PT HAD SYNCOPAL EPISODE WITH LOSS OF PULSE AND CPR/RESUSCITATION FOR APPROXIMATELY 2 MINUTES WITH [facility]. DURING THAT STAY SHE HAD ATRIAL FIBRILLATION WITH [facility] THAT REQUIRED CARDIOVERSION PT UNDERWENT SUBTOTAL COLECTOMY WITH PERMANENT ILEOSTOMY. PT REPORTS THAT SHE WAS ON VENTILATOR FOR 10 DAYS PT WAS TRANSFERRED FROM [facility] TO [facility], AND WAS THERE FROM 02/08/20-02/28/20, THEN TRANSFERRED HERE FOR REHAB FROM 02/28/20-03/10/20. SEEING WOUND CARE FOR DELAYED HEALING OF MIDLINE SURGICAL WOUND AND SKIN BREAKDOWN AROUND STOMA. 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 VERA -SEBACEOUS CYST OF ABDOMINAL WALL REMOVED 05/[address] VERA -SUBTOTAL COLECTOMY WITH PERMANENT ILEOSTOMY 12/2019 AT [facility] BY DR. BRYANT Occupation: retired PM&R Allergy/Meds/Data Review Allergies Coded Allergies: Penicillins (Verified Allergy, Unknown, 08/20/20) raspberry (Verified Allergy, Unknown, 08/20/20) Home Medications Scheduled Amitriptyline HCl (Amitriptyline HCl), 100 MG PO HS, (Reported) Atorvastatin Calcium (Atorvastatin Calcium), 40 MG PO 1700, (Reported) Carvedilol (Carvedilol), 25 MG PO BID, (Reported) Cetirizine HCl (Cetirizine HCl), 10 MG PO DAILY, (Reported) Cholecalciferol (Vitamin D3) (Vitamin D3), 25 MCG PO DAILY, (Reported) Docusate Sodium (Docusate Sodium), 100 MG PO BID, (Reported) Famotidine (Famotidine), 20 MG PO DAILY, (Reported) Fenofibrate (Fenofibrate), 160 MG PO HS, (Reported) Ferrous Sulfate (Iron), 325 MG PO BID, (Reported) Latanoprost (Xalatan), 1 DROP OU HS, (Reported) Leflunomide (Leflunomide), 20 MG PO Q48H, (Reported) Levothyroxine Sodium (Levothyroxine Sodium), 125 MCG PO DAILY, (Reported) Nystatin (Nystatin), 5 ML PO QID, (Reported) Oxybutynin Chloride (Oxybutynin Chloride), 5 MG PO BID, (Reported) Saccharomyces Boulardii (Florastor), 250 MG PO DAILY, (Reported) Timolol Maleate (Timolol Maleate 0.5%), 1 DROP OU HS, (Reported) Scheduled PRN Acetaminophen (Tylenol Arthritis), 650 MG PO Q6H PRN for PAIN-MILD (1-4) OR TEMPATURE, (Reported) Discontinued Medications Amlodipine Besylate (Amlodipine Besylate), 10 MG PO DAILY, (Reported) Discontinued Reason: No Longer Taking Aspirin (Aspirin), 81 MG PO DAILY, (Reported) Discontinued Reason: No Longer Taking Atorvastatin Calcium (Atorvastatin Calcium), 20 MG PO DAILY, (Reported) Discontinued Reason: Prescription changed Carvedilol (Carvedilol), 12.5 MG PO BID, (Reported) Discontinued Reason: Prescription changed Fish Oil/Dha/Epa (Fish Oil 1,200 mg Fish Oil), 2 EACH PO BID, (Reported) Discontinued Reason: No Longer Taking Hydrocodone/Acetaminophen (Hydrocodone-Acetamin 5-325 mg), 1 TAB PO Q4H PRN for PAIN-MODERATE (5-7) Discontinued Reason: No Longer Taking Levothyroxine Sodium (Levothyroxine Sodium), 112 MCG PO GUILLORY,TU,WE,REFUGIO,FR,SA, (Re ported) Discontinued Reason: No Longer Taking Pantoprazole Sodium (Pantoprazole Sodium), 40 MG PO DAILY, (Reported) Discontinued Reason: No Longer Taking Pilocarpine (Salagen), 10 MG PO BID, (Reported) Discontinued Reason: No Longer Taking Pioglitazone HCl (Pioglitazone HCl), 30 MG PO DAILY, (Reported) Discontinued Reason: No Longer Taking Simethicone (Gas Relief 80), 80 MG PO UD PRN for GAS, (Reported) Discontinued Reason: No Longer Taking Sodium Bicarbonate (Sodium Bicarbonate), 650 MG PO BID, (Reported) Discontinued Reason: No Longer Taking Tramadol HCl (Tramadol HCl), 50 MG PO QID Discontinued Reason: No Longer Taking Current Medications Current Medications Reviewed Review of Systems Constitutional: see HPI, malaise, weakness EENTM: no symptoms reported Respiratory: no symptoms reported Cardiovascular: chest pain Gastrointestinal: no symptoms reported Genitourinary: no symptoms reported Musculoskeletal: back pain, joint pain Skin: no symptoms reported Psychiatric/Neurological: Anxiety, Depressed All Other Systems Reviewed Negative Unless Noted: Yes Physical Exam Physical Exam Vital Signs Capillary Refill : Height, Weight, BMI Height: '" Weight: lbs. oz. kg; 19.63 BMI Method:Stated General Appearance: No Apparent Distress, WD/WN, Chronically ill, Thin Eyes: Bilateral Eye Normal Inspection, Bilateral Eye PERRL HEENT: PERRL/EOMI, Normal ENT Inspection, Pharynx Normal Neck: Full Range of Motion, Normal Inspection, Non Tender, Supple, Carotid Bruit Respiratory: Chest Non Tender, Lungs Clear, Normal Breath Sounds, No Accessory Muscle Use, No Respiratory Distress Cardiovascular: Regular Rate, Rhythm, No Edema, No Gallop, No JVD, No Murmur, Normal Peripheral Pulses Gastrointestinal: Normal Bowel Sounds, No Organomegaly, No Pulsatile Mass, Non Tender, Soft Back: Normal Inspection, No CVA Tenderness, No Vertebral Tenderness Extremity: Normal Capillary Refill, Normal Inspection, Normal Range of Motion, Non Tender, No Calf Tenderness, No Pedal Edema Neurologic/Psychiatric: Alert, Oriented x3, 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, basic acoustic analyst II-XII Norm as Tested, Abnormal Gait, Depressed Affect, Motor Weakness (generalized) Skin: Normal Color, Warm/Dry Lymphatic: No Adenopathy PM&R Medical Assessment & Plan REHAB/MEDICAL ASSESSMENT AND PLAN: REHAB 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 The comorbidities that impact the patients function and/or functional outcome by: malnutrition, weakness, COVID, drain from pelvic abscess placement 10/14/21 REHAB PLAN: The patient is being admitted to our comprehensive inpatient rehabilitation facility and can tolerate the intensity of service consisting of at least: 180 minutes of therapy a day, 5 out of 7 days a week Rehab treatment will consist of: PT OT will focus on regaining function in order to build stamina while increasing nutrition and use of assistive devices The patient/family has a good understanding of our discharge process and will be nefit from an interdisciplinary inpatient rehabilitation program. The patient has potential to make improvement and is in need of at least two of the following multidisciplinary therapies including but not limited to physical, occupational, speech, and prosthetics and orthotics. Additionally the patient will need services from respiratory, nutritional services, wound care, psychol ogy, etc. (Customize this to each patient). Given the patients complex condition and risk of further medical complications, rehabilitation services cannot be safely or effectively provided at a lower level of care such as a alf facility. BARRIERS TO DISCHARGE: Malnutrition with weakness ESTIMATED LOS: 10 days DISPOSITION: Home RELEVANT CHANGES SINCE PREADMISSION SCREENING: I have compared the patients medical and functional status at the time of the preadmission screening and there are: no changes PROGNOSIS: Guarded REHABILITATION GOALS: 1. PT OT will focus on regaining function in order to build stamina while increasing nutrition and use of assistive devices All the above goals were reviewed with the patient and he/she is in agreement. By signing this document, I acknowledge that I have personally performed a full physical examination on this patient within 24 hours of admission to this inpatient rehabilitation facility and have determined the patient to be able to tolerate the above course of treatment at an intensive level for a reasonable period of time. I will be completing a detailed individualized Plan of Care for this patient by day #4 of the patients stay based upon the Preadmission Screen, the Post-Admission Evaluation, and the therapy evaluations. Admission Dx/Comorbidities: (1) Physical debility Status: Acute ICD Codes: R53.81 - Other malaise (2) COVID ICD Codes: U07.1 - COVID-19 (3) Ovarian cancer in remission ICD Codes: Z85.43 - Personal history of malignant neoplasm of ovary (4) Solitary kidney ICD Codes: Q60.0 - Renal agenesis, unilateral (5) Fall Status: Acute ICD Codes: W19.XXXA - Unspecified fall, initial encounter (6) Rhabdomyolysis Status: Acute ICD Codes: M62.82 - Rhabdomyolysis (7) Myopathy ICD Codes: G72.9 - Myopathy, unspecified (8) Hypothyroidism ICD Codes: E03.9 - Hypothyroidism, unspecified (9) Hypoglycemia Status: Acute ICD Codes: E16.2 - Hypoglycemia, unspecified (10) Fistula ICD Codes: L98.8 - Other specified disorders of the skin and subcutaneous tissue (11) Diabetes mellitus ICD Codes: E11.9 - Type 2 diabetes mellitus without complications (12) Atrial fibrillation ICD Codes: I48.91 - Unspecified atrial fibrillation Assessment/Plan Assessment and Plan Assess & Plan/Chief Complaint Assessment: Myopathy Malnutrition prealbumin 11 COVID infection with vaccination and 1 booster -Central line maintained -No oxygen required at this time -Currently on isolation for 20 days S/p ileostomy reversal with fistula and abscess October 2021 Dr Nieves -General surgery consulted again for possible drain removal today, 11/18/21 -Drain still in place from [facility] IR 10/14 -Levofloxacin last day CHF -Echo EF 20-25% -Lasix and spironolactone and Entresto Type II FL -Cardiology following, appreciate their recs -Telemetry DC Afib -Lovenox HTN -Well controlled currently Diabetes -SSI CKD3a -BUN/Cr wnl Recent hospitalization at [facility] 10/20-11/11 following stay at [facility] 10/14 for pelvic abscess drainage. Diet: Regular DVT prophylaxis: Lovenox and SCDs LORENZO MIMS DO Nov 18, 2021 11:56
[2021-11-18] MEDS ORDERED: ACETAMINOPHEN 325 MG TABLET PO PRN ×2 (12:00→21:00)
[2021-11-18] MEDS ORDERED: FLEET ENEMA ADULT 1 EA BTL PR PRN (12:00)
[2021-11-18] MEDS ORDERED: guaiFENesin/CODEINE (ROBITUSSIN AC) 10ML UDC PO PRN (12:00)
[2021-11-18] MEDS ORDERED: MELATONIN 3 MG TABLET PO PRN ×2 (12:00→21:00)
[2021-11-18] MEDS ORDERED: diphenhydrAMINE 25 MG TAB (BENADRYL) PO PRN ×2 (12:00→21:00)
[2021-11-18] MEDS ORDERED: BISACODYL 10 MG SUPP (DULCOLAX) PR PRN ×2 (12:00→21:00)
[2021-11-18] MEDS ORDERED: ALPRAZolam 0.25 MG (XANAX) TAB PO PRN (12:00)
[2021-11-18] MEDS ORDERED: DOCUSATE SODIUM 100 MG (COLACE) CAP PO PRN (12:00)
[2021-11-18] MEDS ORDERED: LACTULOSE SYRUP 10GM/15ML (ENULOSE) 30ML UDC PO PRN ×2 (12:00→21:00)
--- NOTE | 2021-11-18 14:50 | Occupational Therapy Eval ---
OT Evaluation-General/PLF Medical Diagnosis Admission Date Nov 18, 2021 at 13:25 Medical Diagnosis: Covid debility Onset Date: Nov 11, 2021 Therapy Diagnosis Therapy Diagnosis: reduced adl status Precautions Precautions/Isolations: Airborne Isolation, Contact Isolation (COVID 19), Droplet Isolation, Fall Prevention, Standard Precautions Referral Physician: Flavio Aceves Reason: Evaluation/Treatment Medical History Pertinent Medical History: Atrial Fib, DM, HTN, Hypothroidism, Renal Insufficiency Additional Medical History afib, HTN, ovarian cancer, solitary kidney, RA, DM, hypothyroidism, Current History ED 11/11 d/t fall (18 hours down), [facility] following stay at [facility] for pelvic abscess drainage 10/14). transferred to ARU, found to have fever, tachycardia, sepsis and tested positive for COVID. Pt transferred to ICU for higher level of care. Per patient, she lives alone in a single story home. She reports being indep with adls and iadls. She was using a 4WW at baseline. Reviewed History: Yes Social History Home: Single Level Current Living Status: Alone ADL-Prior Level of Function SCALE: Activities may be completed with or without assistive devices. 8-Tcejczywpe-gqefayk completes the activity by him/herself with no assistance from a helper. 5-Set-up or Clean-up Assistance-helper sets up or cleans up; patient completes activity. [place] assists only prior to or following the activity. 4-Supervision or Touching Assistance-helper provides verbal cues and/or touching/steadying and/or contact guard assistance as patient completes activity. Assistance may be provided throughout the activity or intermittently. 3-Partial/Moderate Assistance-helper does LESS THAN HALF the effort. [place] lifts, holds or supports trunk or limbs, but provides less than half the effort. 2-Substantial/Maximal Assistance-helper does MORE THAN HALF the effort. [place] lifts or holds trunk or limbs and provides more than half the effort. 9-Flptqoudk-osnlkg does ALL the effort. Patient does none of the effort to complete the activity. Or, the assistance of 2 or more helpers is required for the patient to complete the activity. If activity was not attempted, code reason: 7-Patient Refused. 9-Not Applicable-not attempted and the patient did not perform the activity before the current illness, exacerbation or injury. 10-Not Attempted due to Environmental Limitations-(lack of equipment, weather restraints, etc.). 88-Not Attempted due to Medical Conditions or Safety Concerns. Self Care: Independent Functional Cognition: Independent DME/Equipment: Bath Bench (built in seat), Grab Bars, Tub/Shower Drive Self: Yes OT Current Status Subjective Pt denies pain, agreeable to evaluation. Co-treat with PT for part of treatment ([id number]) secondary to poor endurance, severe debility and need of 2 skilled clinicians to progress indep and safety with adls and functional mobility. Appearance Pt returned to sitting in recliner, all needs within reach at therapy departure. Mental Status/Objective Patient Orientation: Person, Place, Situation Attachments: Colostomy/Ileostomy, IV, Telemetry Current Glasses/Contacts: Yes Hearing Aids: No Dentures/Partials: Yes (partial) Hand Dominance: Right Upper Extremity ROM WNL Upper Extremity Strength grossly 3/5 ADL-Treatment Eating (QC): 5 Oral Hygiene (QC): 4 Shower/Bathe Self (QC): 4 Upper Body Dressing (QC): 4 Lower Body Dressing (QC): 4 On/Off Footwear (QC): 4 Toileting Hygiene (QC): 4 Supine>sit: Independent. Sponge bath performed seated at EOB. Pt able to reach all body parts but fatigues quickly, thus needing several rest breaks. CGA for safety as she stood to wash amanuel area/buttocks. She donned brief over feet without difficulty and stood to manage up over hips with steadying assist. She requested to defer donning pants until drain from colostomy is removed (plan for removal today). She stood at the sink to brush teeth, close supervision for safety. No LOB but pt does fatigue quickly and requires a sitting rest break before ambulating back to room. Due to isolation precautions, pt is unable to leave room at this time. She ambulated several bouts within room with SBA-CGA and use of walker. Pt only able to ambulate ~50 feet each time before requesting to rest. Education provided on energy conservation strategies. Pt performed exercises (zero resistance) alternating between Upper and Lower extremities. Again, fatigues easily thus needing several short rest breaks. Education OT Patient Education: Correct positioning, Energy conservation, Modified ADL techniques, Purpose of tx/functional activities, Safety issues, W/C management Teaching Recipient: Patient Teaching Methods: Discussion Response to Teaching: Verbalize Understanding, Return Demonstration, Reinforcement Needed OT Short Term Goals Short Term Goals Time Frame: Nov 25, 2021 Eatin Oral hygiene: 6 Toileting hygiene: 6 Shower/bathe self: 5 Upper body dressin Lower body dressin Putting on/taking off footwear: 6 OT Correction Goals Pig Lead Melter Helper Goals Time Frame: Dec 02, 2021 Eating (QC): 6 Oral Hygiene (QC): 6 Toileting Hygiene (QC): 6 Shower/Bathe Self (QC): 6 Upper Body Dressing (QC): 6 Lower Body Dressing (QC): 6 On/Off Footwear (QC): 6 1=Demonstrate adherence to instructed precautions during ADL tasks. 2=Patient will verbalize/demonstrate understanding of assistive carlos akbar/modifications for ADL. 3=Patient will improve strength/tolerance for activity to enable patient to perform ADL's. OT Education/Plan Problem List/Assessment Assessment: Decreased Activ Tolerance, Decreased UE Strength, Impaired Funct Balance, Impaired I ADL's, Impaired Self-Care Skills Discharge Recommendations Plan/Recommendations: Continue POC Therapy Discharge Recommendati: Home & Family Treatment Plan/Plan of Care Treatment,Training & Education: Yes Patient would benefit from OT for education, treatment and training to promote independence in ADL's, mobility, safety and/or upper extremity function for ADL's. Plan of Care: ADL Retraining, Concurrent Therapy, Functional Mobility, Group Exercise/Act as Ind, UE Funct Exercise/Act Treatment Duration: Dec 02, 2021 Frequency: At least 5 of 7 days/Wk (IRF) Estimated Hrs Per Day: 1.5 hours per day (75-90 min/day ) Agreement: Yes Rehab Potential: Good Time/GCodes Start Time: 13:25 Stop Time: 14:50 Total Time Billed (hr/min): 75 Billed Treatment Time 1 visit EVL (10 min) ADL x3 (45 min) EX (20 min) OT eval: [id number] PT eval: [id number] Co-treat: [id number] Neli De Paz OT Nov 18, 2021 14:50
--- NOTE | 2021-11-18 14:54 | Physical Therapy Evaluation ---
PT Evaluation-General Medical Diagnosis Admission Date Nov 18, 2021 at 13:25 Medical Diagnosis: debility, covid 19 Onset Date: Nov 11, 2021 Therapy Diagnosis Therapy Diagnosis: impaired mobility, strength, endurance Precautions Precautions/Isolations: Droplet Isolation, Fall Prevention, Standard Precautions Referral Physician: Nena Muniz DO Reason for Referral: Evaluation/Treatment Medical History Pertinent Medical History: Atrial Fib, DM, HTN, Hypothroidism, Renal Insufficiency Reviewed History: Yes Social History Home: Single Level Current Living Status: Alone Entry Into Home: Stairs With Railing PT Steps Into Home: 3 Patient states her son lives only about a mile away. Prior Prior Level of Function SCALE: Activities may be completed with or without assistive devices. 9-Lrtcgznxua-okeujsb completes the activity by him/herself with no assistance from a helper. 5-Set-up or Clean-up Assistance-helper sets up or cleans up; patient completes activity. [place] assists only prior to or following the activity. 4-Supervision or Touching Assistance-helper provides verbal cues and/or touching/steadying and/or contact guard assistance as patient completes activity. Assistance may be provided throughout the activity or intermittently. 3-Partial/Moderate Assistance-helper does LESS THAN HALF the effort. [place] lifts, holds or supports trunk or limbs, but provides less than half the effort. 2-Substantial/Maximal Assistance-helper does MORE THAN HALF the effort. [place] lifts or holds trunk or limbs and provides more than half the effort. 0-Jexhdqtcr-xczlab does ALL the effort. Patient does none of the effort to complete the activity. Or, the assistance of 2 or more helpers is required for the patient to complete the activity. If activity was not attempted, code reason: 7-Patient Refused. 9-Not Applicable-not attempted and the patient did not perform the activity before the current illness, exacerbation or injury. 10-Not Attempted due to Environmental Limitations-(lack of equipment, weather restraints, etc.). 88-Not Attempted due to Medical Conditions or Safety Concerns. Bed Mobility: 6 Transfers (B,C,W/C): 6 Gait: 6 Stairs: 6 Indoor Mobility (Ambulation): Independent Stairs: Independent PT Evaluation-Current Subjective Patient in bed pre tx, agrees to PT, has no complaints of pain. Will be co- treating with OT due to poor patient mobility, strength, endurance, severe debility, coordinate UE and LE during activity, safety and reduce risk of falls. Pt/Family Goals to be independent at home Objective Patient Orientation: Person, Place, Situation ROM/Strength ROM Lower Extremities WNL Strength Lower Extremities LLE (hip flexion 3+/5, knee flexion 3+/5, knee extension 4-/5, dorsiflexion 3+/5), RLE (hip flexion 3+/5, knee flexion 3+/5, knee extension 4-/5, dorsiflexion 3+/5) Sensory Hearing: Functional Sensation Right Lower Extremit: Intact Sensation Left Lower Extremity: Intact Sensation Lower Extremities Patient states she has intermittent tingling in her hands and feet Transfers Roll Left & Right (QC): 6 Sit to Lying (QC): 6 Lying to Sitting/Side of Bed(Q: 6 Sit to Stand (QC): 3 Chair/Iwr-qe-Lkarp Xfer(QC): 4 Toilet Transfer (QC): 4 Car Transfer (QC): 4 Patient performs rolling and supine <-> sit with independence, sit <-> stand min assist, transfers CGA, car transfer CGA. Patient needs occasional cues for safety and positioning. Gait Does the Patient Walk?: Yes Mode of Locomotion: Walk Anticipated Mode of Locomotion: Walk Walk 10 feet (QC): 4 Walk 50 ft with 2 Turns(QC): 4 Walk 150 ft (QC): 88 Walking 10ft/uneven surface-QC: 10 Distance: 50'x3 Gait Assistive Device: FWW Comments/Gait Description Patient can ambulate 50' with a rolling walker with CGA (including 50' with at least 2 turns of 90 degrees), patient ambulates slowly, slightly uncoordinated, fatigues quickly Wheelchair Training Does the Pt Use a Wheelchair?: No Wheel 50 ft with 2 turns (QC): 9 Wheel 150 ft (QC): 9 Stairs #of Steps: 1 1 Step (curb) (QC): 4 4 Steps (QC): 88 12 Steps (QC): 88 Walking Assistive Device: Walker Patient can go up and down 1 step using a rolling walker with CGA, cues for foot placement and safety. Balance Sitting Static: Normal Sitting Dynamic: Normal Standing Static: Fair Standing Dynamic: Fair Picking up an Object (QC): 88 Special Test Comments Patient scored 19/28 on the Tinetti Assessment Tool. Treatment Patient also performed seated exercises x20 (AP, LAQ, marching), OT performed UE exercises, standing at sink to perform ADL's, and dressing. PT performed bed mobility and transfers, ambulation, LE exercise, standing during ADL's and standing and positioning during dressing, OT performed UE exercise, ADL's, dressing, UE positioning and safety during activity. Assessment/Needs Patient in recliner post tx with nurse call, phone, tray, all needs met. Patient has impaired mobility, strength, endurance. Patient fatigues quickly with activity. Rehab Potential: Fair PT Short Term Goals Short Term Goals Time Frame: Nov 25, 2021 Roll Left & Right: 6 Sit to lyin Lying to sitting on side of be: 6 Sit to stand: 4 (CGA) Chair/euc-oa-rbopm transfer: 4 (SBA) Walk 10 feet: 4 (SBA) Walk 50 feet with two turns: 4 (SBA) PT Nursing Home Goals Nursing Home Goals PT Lard Bleacher Goals Time Frame: Dec 09, 2021 Roll Left & Right (QC): 6 Sit to Lying (QC): 6 Lying-Sitting on Side/Bed(QC): 6 Sit to Stand (QC): 6 Chair/Yzd-ap-Gtnwi Xfer(QC): 6 Toilet Transfer (QC): 6 Car Transfer (QC): 6 Does the Patient Walk: Yes Walk 10 feet (QC): 6 Walk 50ft with 2 Turns (QC): 6 Walk 150 ft (QC): 6 Walking 10ft on Uneven Surface: 6 1 Step (curb) (QC): 6 4 Steps (QC): 6 12 Steps (QC): 88 Picking up an Object (QC): 6 Wheel 50 feet with 2 turns (QC: 9 Wheel 150 feet: 9 PT Plan Problem List Problem List: Activity Tolerance, Functional Strength, Safety, Balance, Gait, Transfer, Bed Mobility, ROM Treatment/Plan Treatment Plan: Continue Plan of Care Treatment Plan: Bed Mobility, Education, Functional Activity Maikel, Functional Strength, Group Therapy, Gait, Safety, Therapeutic Exercise, Transfers Treatment Duration: Dec 09, 2021 Frequency: At least 5 of 7 days/Wk (IRF) Estimated Hrs Per Day: 1.5 hours per day Patient and/or Family Agrees t: Yes Safety Risks/Education Patient Education: Gait Training, Transfer Techniques, Steps, Correct Positioning, Safety Issues Teaching Recipient: Patient Teaching Methods: Demonstration, Discussion Response to Teaching: Reinforcement Needed Discharge Recommendations Plan Patient will perform bed mobility and transfer training, balance and endurance training, functional strengthening, stair training, gait training, and education, to improve functional mobility and independence at home. Therapy Discharge Recommendati: Home & Family, Post Acute PT Time/GCodes Time In: 1335 Time Out: 1450 Total Billed Treatment Time: 75 Total Billed Treatment 1 visit EVM 10' EX 15' FA 50' PT eval from [id number], co-treat from [id number] RANI DUMONT PT Nov 18, 2021 14:54
[2021-11-18 14:56] VITALS: BP 96/67
--- NOTE | 2021-11-18 15:19 | ST Cognitive Linguistic Eval ---
Speech Evaluation-General Medical Diagnosis Covid Debility Onset Date: Nov 11, 2021 Therapy Diagnosis Therapy Diagnosis: Mild Neurocognitive Impairment Precautions Precautions: Fall, Pressure Ulcer Precautions/Isolations: Fall Prevention, Pressure Ulcer COVID-19 Isolation. Referral Referring Physician: Dr. Nena Muniz Reason for Referral: Evaluation/Treatment Medical History Pertinent Medical History: Atrial Fib, DM, HTN, Hypothroidism, Renal Insufficiency Current History The patient is a 76 year-old male with a past medical history of atrial fibrillation, DM, HTN, hypothyroidism, renal insufficiency, and ovarian cancer, who presented to [facility] on 11/11/21 following a fall. Prior to the patient's fall, she was admitted to [facility] from 10/20/21 to 11/11/21 following a stay at [facility] for a pelvic abscess drainage. The patient was transferred to ARU and found to have a fever, sepsis, and tachycardia. The patient was transferred to ICU, as she was found to have COVID 19. The patient was recently re-t ransferred to ARU. Reviewed History: Yes Social History Current Living Status: Alone Speech PLF-Current Status Prior Level of Function The patient reported difficulties with her memory which initiated approximately one month prior. The patient denied additional challenges or concerns with her speech, language, or cognition at this time. Subjective The patient was seated upright in her recliner, awake and alert upon entrance to her room. The patient greeted the clinician appropriately and was agreeable to participation in the cognitive linguistic assessment. Language Eval: Auditory Comprehends Simple Yes/No Ques: Functional Indent/Objects [place]: Functional Ident/Pics in [place]: Functional Follows 1-Step Commands: Functional Language Eval: Verbal Language Completes Spontaneous Greeting: Functional Produces Auto, Serial Info: Functional Imitates Simple Words/Phrases: Functional Word Finding: Functional Requests Basic Needs: Functional States Basic Personal Info: Functional Language Evaluation: Reading Follows Simple Written Direct: Functional Language Evaluation: Writing Writes to Simple Dictation: Functional Cognitive Patient Orientation The patient was oriented to self, location, month, day of week, date, and year. Objective Cognitive Domain Attention: Mild Memory: Mild Problem Solving: Mild Composite Severity Rating: Mild Objective Formal/Standardized Tests [facility] Mental Status Exam (UMS) Results The patient demonstrated a result of +23/30 correlating to a mild neurocognitive impairment. Oral Motor/Speech Production The patient does not display dysarthria or apraxia of speech at this time. The patient remained 100% intelligible in known and unknown contexts. Impression The patient demonstrated a mild neurocognitive impairment in the areas of memory and attention. Speech Patient Assess Expression of Ideas/Wants: Exhibits (3) Understanding Verbal Content: Usually Understands (3) Brief Interview-Mental Status: Yes Repetition of Three Words: Three (3) Temporal Orientation: Year: Correct (3) Temporal Orientation: Month: Accurate within 5 days(2) Temporal Orientation: Day: Correct (1) Recall : Wear to say "Sock": Yes, no cue required (2) Recall : Color: Yes, no cue required (2) Recall : Bed: Yes,after cueing (1) Memory/Recall Ability: Current season, That he or she is in a hsp/hsp unit Speech Short Term Goals Short Term Goals Short Term Goals 1. The patient will demonstrate 80% accuracy with memory exercises with mild clinician verbal and visual cueing. Time Frame-STG: One Week. Speech Childcare Attendant Goals Group Home Goals 1. The patient will improve her cognitive linguistic skills for safe discharge to the least restrictive environment. Time Frame: Two Weeks. Speech-Plan Treatment Plan Speech Therapy Treatment Plan: Continue Plan of Care Treatment Duration: Dec 02, 2021 Frequency: 4 times per week (Four to five times per day.) Estimated Hrs Per Day: .5 hour per day Rehab Potential: Fair Pt/Family Agrees to Plan: Yes Safety Risks/Education Teaching Recipient: Patient Teaching Methods: Discussion Response to Teaching: Verbalize Understanding Education Topics Provided: SLUMS Results, Plan of Care Time Speech Therapy Time In: 14:50 Speech Therapy Time Out: 15:20 Total Billed Time: 30 Billed Treatment Time 1, FÉLIX DIALLO [address] ST Nov 18, 2021 15:19
--- NOTE | 2021-11-18 16:38 | Progress Note - Surgery ---
Subjective Time Seen by a Provider: 15:29 Subjective/Events-last exam Pt seen and examined, she has no complaints. Has been moved down to ARU. Review of Systems General: Fatigue, Malaise Pulmonary: No Dyspnea, No Cough Cardiovascular: No: Chest Pain, Palpitations Gastrointestinal: Abdominal Pain Objective Exam Vital Signs Date Time Temp Pulse Resp B/P (MAP) Pulse Ox O2 Delivery O2 Flow Rate FiO2 11/18/21 14:56 35.5 98 18 96/67 (77) 99 11/18/21 14:10 Room Air Capillary Refill : General Appearance: No Apparent Distress, Chronically ill, Thin HEENT: PERRL/EOMI, Moist Mucous Membranes Respiratory: No Accessory Muscle Use, No Respiratory Distress, Other (coarse breath sound) Cardiovascular: Regular Rate, Rhythm, No Murmur Gastrointestinal: soft; No distended; tenderness (around fistula) Assessment/Plan Assessment/Plan Assessment/Plan Enterocutaneous Fistula Removed the drain today, will monitor output. At some point will discuss need for strict NPO and TPN depending on continued output. Pt understood and had no questions. Pt encouraged to ambulate and work with PT. YADIRA LONDON DO Nov 18, 2021 16:38
[2021-11-18] MEDS: CALCIUM CARBONATE 500 MG (TUMS) TAB.CHEW PO PRN (17:31)
[2021-11-18] MEDS: SENNA W/DOCUSATE (SENOKOT S) TABLET PO SCH (19:44)
[2021-11-18] MEDS: DOCUSATE SODIUM 100 MG (COLACE) CAP PO SCH (19:44)
[2021-11-18] MEDS: polyethylene glycoL POWDER 17 GM (MIRALAX) PACK PO SCH (19:44)
[2021-11-18 20:41] VITALS: BP 108/71
[2021-11-18] MEDS: SENNOSIDES 8.6 MG (SENOKOT) TAB PO SCH (20:55)
[2021-11-18] MEDS ORDERED: ANTACID SUSP 30 ML UDC (MYLANTA) PO PRN (21:00)
[2021-11-18] MEDS ORDERED: polyethylene glycoL POWDER 17 GM (MIRALAX) PACK PO PRN (21:00)
[2021-11-18] MEDS ORDERED: morphine INJ 4 MG/ML 1 ML (VIAL/SYRINGE) IV PRN (21:00)
[2021-11-18] MEDS ORDERED: PROCHLORPERAZINE 10 MG/2ML INJ (COMPAZINE) IV PRN (21:00)
[2021-11-18] MEDS ORDERED: DOCUSATE SODIUM 100 MG (COLACE) CAP PO SCH (21:00)
[2021-11-18] MEDS ORDERED: MILK OF MAGNESIA 400 MG/5 ML 30 ML UDC PO PRN (21:00)
[2021-11-18] MEDS ORDERED: diphenhydrAMINE 50 MG/ML INJ (BENADRYL) IVP PRN (21:00)
[2021-11-18] MEDS ORDERED: inSUlin ASPART (NovoLOG) 1 UNIT/0.01 ML (CHARGE PER UNIT) ONE (21:48)
[2021-11-18] MEDS: ENOXAPARIN INJECTION 30 MG/0.3 ML SYR SC SCH (21:52)
[2021-11-18] MEDS: inSUlin ASPART (NovoLOG) 1 UNIT/0.01 ML (CHARGE PER UNIT) SC SCH (21:53)
[2021-11-18] MEDS: SACUBITRIL/VALSARTAN 24/26 MG (ENTRESTO) TABLET PO SCH (21:53)
[2021-11-18] MEDS: CALCIUM CARBONATE 500 MG (TUMS) TAB.CHEW PO SCH (21:53)
[2021-11-19] MEDS: KCL 20 MEQ TAB (K-DUR) PO SCH (06:02)
[2021-11-19 06:08] LABS: BASOPHILS % (AUTO) 1 % (0-10); EOSINOPHILS # (AUTO) 0.1 10^3/uL (0.0-0.3); EOSINOPHILS % (AUTO) 3 % (0-10); HEMATOCRIT 25 % (35-52); HEMOGLOBIN 8.2 g/dL (11.5-16.0); LYMPHOCYTES # (AUTO) 1.3 10^3/uL (1.0-4.0); LYMPHOCYTES % (AUTO) 45 % (12-44); MEAN CORPUSCULAR HEMOGLOBIN 29 pg (25-34); MEAN CORPUSCULAR HGB CONC 33 g/dL (32-36); MEAN CORPUSCULAR VOLUME 89 fL (80-99); MEAN PLATELET VOLUME 11.4 fL (9.0-12.2); MONOCYTES # (AUTO) 0.3 10^3/uL (0.0-1.0); MONOCYTES % (AUTO) 9 % (0-12); NEUTROPHILS # (AUTO) 1.3 10^3/uL (1.8-7.8); NEUTROPHILS % (AUTO) 42 % (42-75); PLATELET COUNT 148 10^3/uL (130-400)
--- NOTE | 2021-11-19 06:20 | PM&R Progress Note ---
Subjective HPI/CC On Admission Date Seen by Provider: Nov 19, 2021 Time Seen by Provider: 12:30 Subjective/Events-last exam 11/19/2021: Pt is doing well No oxygen required Dietary consult for poor nutrition White count is 3 Hemoglobin is 8.2 Review of Systems General: Fatigue, Malaise Objective Exam Vital Signs Vital Signs Date Time Temp Pulse Resp B/P (MAP) Pulse Ox O2 Delivery O2 Flow Rate FiO2 11/19/21 09:00 Room Air 11/19/21 07:11 36.1 89 18 114/73 (87) 99 Capillary Refill : General Appearance: No Apparent Distress, WD/WN, Chronically ill, Thin HEENT: PERRL/EOMI, Normal ENT Inspection, Pharynx Normal Neck: Full Range of Motion, Normal Inspection, Non Tender, Supple, Carotid Bruit Respiratory: Chest Non Tender, Lungs Clear, Normal Breath Sounds, No Accessory Muscle Use, No Respiratory Distress Cardiovascular: Regular Rate, Rhythm, No Edema, No Gallop, No JVD, No Murmur, Normal Peripheral Pulses Gastrointestinal: Normal Bowel Sounds, No Organomegaly, No Pulsatile Mass, Non Tender, Soft Back: Normal Inspection, No CVA Tenderness, No Vertebral Tenderness Extremity: Normal Capillary Refill, Normal Inspection, Normal Range of Motion, Non Tender, No Calf Tenderness, No Pedal Edema Neurologic/Psychiatric: Alert, Oriented x3, 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, sales operations director II-XII Norm as Tested, Abnormal Gait, Depressed Affect, Motor Weakness (generalized) Skin: Normal Color, Warm/Dry Lymphatic: No Adenopathy Results/Procedures Lab Laboratory Tests 11/19/21 06:00 Patient resulted labs reviewed. FIM Transfers Therapy Code Descriptions/Definitions Functional [place] Measure: 0=Not Assessed/NA 4=Minimal Assistance 1=Total Assistance 5=Supervision or Setup 2=Maximal Assistance 6=Modified [place] 3=Moderate Assistance 7=Complete IndependenceSCALE: Activities may be completed with or without assistive devices. 9-Xnkfolxlen-lxrbsdh completes the activity by him/herself with no assistance from a helper. 5-Set-up or Clean-up Assistance-helper sets up or cleans up; patient completes activity. [place] assists only prior to or following the activity. 4-Supervision or Touching Assistance-helper provides verbal cues and/or touching/steadying and/or contact guard assistance as patient completes activity. Assistance may be provided throughout the activity or intermittently. 3-Partial/Moderate Assistance-helper does LESS THAN HALF the effort. [place] lifts, holds or supports trunk or limbs, but provides less than half the effort. 2-Substantial/Maximal Assistance-helper does MORE THAN HALF the effort. [place] lifts or holds trunk or limbs and provides more than half the effort. 0-Ygnumwmwb-ivscld does ALL the effort. Patient does none of the effort to complete the activity. Or, the assistance of 2 or more helpers is required for the patient to complete the activity. If activity was not attempted, code reason: 7-Patient Refused. 9-Not Applicable-not attempted and the patient did not perform the activity before the current illness, exacerbation or injury. 10-Not Attempted due to Environmental Limitations-(lack of equipment, weather restraints, etc.). 88-Not Attempted due to Medical Conditions or Safety Concerns. Roll Left to Right (QC): 6 Sit to Lying (QC): 6 Sit to Stand (QC): 3 Chair/Kof-xk-Bphdy Xfer(QC): 4 Car Transfer (QC): 4 Gait Training Does the Patient Walk?: Yes Walk 10 feet (QC): 4 Walk 50 ft with 2 Turns(QC): 4 Walk 150 ft (QC): 88 Walking 10ft/uneven surface-QC: 10 Gait Assistive Device: FWW Wheelchair Training Does the Pt Use a Wheelchair?: No Wheel 50 ft with 2 turns (QC): 9 Wheel 150 ft (QC): 9 Stair Training #of Steps: 1 1 Step (curb) (QC): 4 4 Steps (QC): 88 12 Steps (QC): 88 Balance Picking up an Object (QC): 88 ADL-Treatment Eating (QC): 5 Oral Hygiene (QC): 4 Shower/Bathe Self (QC): 4 Upper Body Dressing (QC): 4 Lower Body Dressing (QC): 4 On/Off Footwear (QC): 4 Toileting Hygiene (QC): 4 Assessment/Plan Assessment and Plan Assess & Plan/Chief Complaint Assessment: Myopathy Malnutrition prealbumin 11 COVID infection with vaccination and 1 booster -Central line maintained -No oxygen required at this time -Currently on isolation for 20 days S/p ileostomy reversal with fistula and abscess October 2021 Dr Nieves -General surgery consulted again for possible drain removal today, 11/18/21 -Drain still in place from [facility] IR 10/14 -Levofloxacin last day CHF -Echo EF 20-25% -Lasix and spironolactone and Entresto Type II MD -Cardiology following, appreciate their recs -Telemetry DC Afib -Lovenox HTN -Well controlled currently Diabetes -SSI CKD3a -BUN/Cr wnl Recent hospitalization at [facility] 10/20-11/11 following stay at [facility] 10/14 for pelvic abscess drainage. Diet: Regular DVT prophylaxis: Lovenox and SCDs 11/19/2021: Dietary consult appreciated Continue therapy (1) Physical debility Status: Acute (2) COVID (3) Ovarian cancer in remission (4) Solitary kidney (5) Fall Status: Acute (6) Rhabdomyolysis Status: Acute (7) Myopathy (8) Hypothyroidism (9) Hypoglycemia Status: Acute (10) Fistula (11) Diabetes mellitus (12) Atrial fibrillation LORENZO MIMS DO Nov 19, 2021 06:20
--- NOTE | 2021-11-19 06:20 | Individualized Plan of Care ---
Individualized Plan of Care Rehab Nursing IPOC Order Admission Date Nov 18, 2021 at 13:25 Current Orders Orders Admission Order(Inpt,Obs,Sdc) (11/18/21 11:51) Vital Signs: Per Unit Policy ( ,16, (11/18/21 11:51) Aj Martins (11/18/21 11:51) Sequential Compression Device (11/18/21 11:51) Payment Processor-Inpt Rehab Con (11/18/21 11:51) Rehab Nursing Orders-Ipoc (11/18/21 11:51) Physical Therapy Rehab Orders (11/18/21 11:51) Occupational Therapy Rehab Ord (11/18/21 11:51) Speech Therapy Rehab Orders (11/18/21 11:51) Cbc With Automated Diff (11/19/21 06:00) Comprehensive Metabolic Panel (11/19/21 06:00) Precautions (Aru) (11/18/21 11:51) Rehab-Intensity Of Therapy (11/18/21 11:51) Alprazolam Tablet (Xanax Tablet) (11/18/21 12:00) Calcium Carbonate Chew Tablet (Antacid C (11/18/21 12:00) Diphenhydramine Tablet (Benadryl Tablet) (11/18/21 12:00) Docusate Sodium Capsule (Colace Capsule) (11/18/21 21:00) Docusate Sodium Capsule (Colace Capsule) (11/18/21 12:00) Bisacodyl Suppository (Dulcolax Supposit (11/18/21 12:00) Lactulose Oral Solution (Enulose Oral So (11/18/21 12:00) Na Phos/Na Biphos Enema (Fleet Enema Pan (11/18/21 12:00) Guaifenesin/Codeine Syrup (Robitussin Ac (11/18/21 12:00) Loperamide Tablet (Imodium Tablet) (11/18/21 12:00) Melatonin Tablet (Melatonin Tablet) (11/18/21 12:00) Polyethylene Glycol Powder Pkt (Miralax (11/18/21 21:00) Ondansetron Oral Dissolve Tab (Zofran (11/18/21 12:00) Senna S Tablet (Senokot S Tablet) (11/18/21 21:00) Acetaminophen Tablet/Caplet (Tylenol T (11/18/21 12:00) Code/Resuscitation (11/18/21 11:51) Dietary Consult (11/18/21 11:51) Admission Arrival Bed Request (11/18/21 14:02) Patient Visit (11/18/21 ) Speech Sound Lang Comp (11/18/21 ) Treat. Speech/Lang/Voice (11/18/21 ) Patient Visit (11/18/21 ) Pt Eval Moderate Complexity (11/18/21 ) Exercise Therap, Ea 15 Min (11/18/21 ) Functional Activities, Ea 15 (11/18/21 ) Code/Resuscitation (11/18/21 20:50) General/Regular (11/19/21 Breakfast) Aspirin Chewable Tablet (Baby Aspirin Ch (11/19/21 09:00) Diphenhydramine Injection (Benadryl Inje (11/18/21 21:00) Calcium Carbonate Chew Tablet (Antacid C (11/18/21 21:00) Cholecalciferol Capsule/Tablet (Vitamin (11/19/21 09:00) Docusate Sodium Capsule (Colace Capsule) (11/18/21 21:00) Lactulose Oral Solution (Enulose Oral So (11/18/21 21:00) Furosemide Tablet (Lasix Tablet) (11/19/21 09:00) Magnesium Hydroxide Oral Susp (Mom Oral (11/18/21 21:00) Polyethylene Glycol Powder Pkt (Miralax (11/18/21 21:00) Morphine Injection (Morphine Injection (11/18/21 21:00) Antacid Suspension (Mylanta Suspension (11/18/21 21:00) Potassium Chloride (Tablet) (K Dur Table (11/19/21 07:00) Prochlorperazine Injection (Compazine In (11/18/21 21:00) Sacubitril/Valsartan 24/26 Mg (Entresto (11/18/21 21:00) Sennosides Tablet (Senokot Tablet) (11/18/21 21:00) Spironolactone Tablet (Aldactone Tablet) (11/19/21 09:00) Acetaminophen Tablet/Caplet (Tylenol T (11/18/21 21:00) Carvedilol Tablet (Coreg Tablet) (11/18/21 22:00) Oxycodone Immediate Rel Tablet (Oxyir Ta (11/18/21 21:00) Consult Cardiology (11/18/21 20:50) Consult General Surgery (11/18/21 20:50) Mat Initiate Protocol (11/18/21 20:50) Accucheck Achs ACHS (11/18/21 20:56) Insulin Aspart (Novolog) (Novolog (Charg (11/18/21 21:00) Enoxaparin Injection (Lovenox Injection) (11/18/21 21:45) Insulin Aspart (Novolog) (Novolog (Charg (11/18/21 21:48) Carvedilol Tablet (Coreg Tablet) (11/18/21 21:48) Patient Visit (11/19/21 ) Treat. Speech/Lang/Voice (11/19/21 ) Glucerna (11/19/21 13:00) Patient Visit (11/19/21 ) Exercise Therap, Ea 15 Min (11/19/21 ) Gait Training, Ea 15 Min (11/19/21 ) Atorvastatin Tablet (Lipitor Tablet) (11/19/21 17:00) Rehab Nursing Orders: Ongoing Assess. of Cognitive Status, Ongoing Assess. of Function Status, Bladder Management, Bladder Scan, Bladder Training, Bowel Man agement, Bowel Training, Disease Management & Educaiton, DVT Prophylaxis, Fall Prevention, Fluid/Electrolyte/Nutrition Mgmt, Infection Prevention, Medication Management & Education, Management of Risks & Complications, Management of Skin Intergrity, Nutrition Management, Pain Management, Patient/Family Support, Safety Management, Wound Management Intensity of Therapy to be met Patient to be seen: Min.3h per day/5 of 7d PT IPOC Problem List: Activity Tolerance, Functional Strength, Safety, Balance, Gait, Transfer, Bed Mobility, ROM Treatment Plan: Continue Plan of Care Bed Mobility, Education, Functional Activity Maikel, Functional Strength, Group Therapy, Gait, Safety, Therapeutic Exercise, Transfers Treatment Duration: Dec 09, 2021 Frequency: At least 5 of 7 days/Wk (IRF) Estimated Hrs Per Day: 1.5 hours per day OT IPOC Problems: Decreased Activ Tolerance, Decreased UE Strength, Impaired Funct Balance, Impaired I ADL's, Impaired Self-Care Skills OT Treatment, Training and Edu: Yes Plan of Care: ADL Retraining, Concurrent Therapy, Functional Mobility, Group Exercise/Act as Ind, UE Funct Exercise/Act Treatment Duration: Dec 02, 2021 Frequency: At least 5 of 7 days/Wk (IRF) Estimated Hrs Per Day: 1.5 hours per day (75-90 min/day ) ST IP Speech Therapy Treatment Plan: Continue Plan of Care Treatment Duration: Dec 02, 2021 Frequency: 4 times per week (Four to five times per day.) Estimated Hrs Per Day: .5 hour per day Payment Processor/Case Mgmt Payment Processor/Case Managemen: Discharge Planning Dietitian/Clinical Documentation Improvement Specialist Dietitian/Clinical Documentation Improvement Specialist to monitor nutritional status and make changes and/or recommendations as needed and work with speech pathology on dietary upgrades as the occur. Physician IP Medical Issues being managed closely and that require the 24 hour availability of a physician: Recent critical illness with hypotension due to COVID infection with IR drain removal by DR Nieves s/p Amy abx will require close monitoring due to high risk for decompensation Medical Issues: Bowel/Bladder Function, DVT Prophylaxis, Falls Precautions, Fluid/Electrolyte/Nutrition Balance, Infection Protection, Pain Management, Wound Care Brief Synthesis of Preadmission Screen, Post-Admission Evaluation, and Therapy Evaluations: PT OT will require close monitoring due to COVID and frail status and will require aggressive therapy in order to use assistive devices in order to regain independence Medical Prognosis: Fair Anticipated Length of Stay: 10 days LORENZO MIMS DO Nov 19, 2021 06:20
[2021-11-19 06:29] LABS: ALBUMIN 2.1 GM/DL (3.2-4.5); BILIRUBIN,TOTAL 0.3 MG/DL (0.1-1.0); CALCIUM 6.3 MG/DL (8.5-10.1); CREATININE SERUM 0.93 MG/DL (0.60-1.30); POTASSIUM 3.8 MMOL/L (3.6-5.0); TOTAL PROTEIN 4.9 GM/DL (6.4-8.2)
[2021-11-19] MEDS: inSUlin ASPART (NovoLOG) 1 UNIT/0.01 ML (CHARGE PER UNIT) SC SCH ×4 (06:30→21:00)
[2021-11-19 07:11] VITALS: BP 114/73
--- NOTE | 2021-11-19 08:26 | Progress Note - Surgery ---
LUZMA KLINE 11/19/21 0826: Subjective Date Seen by a Provider: Nov 19, 2021 Time Seen by a Provider: 08:15 Subjective/Events-last exam Ms. Garcia is being followed for a drain that was placed in her ventral abdomen. It was pulled yesterday. She has slight pain around the area where the drain was pulled. She would like her ostomy bag to be changed; it is filled with loose, bloody fecal matter. She reports she is working with PT and doing well. Patient had a bowel movement this morning that looked the same as the material in her ostomy bag. Review of Systems General: No Chills, No Fatigue Pulmonary: No Dyspnea, No Cough Cardiovascular: No: Chest Pain, Palpitations Gastrointestinal: No: Nausea, Vomiting, Abdominal Pain Neurological: No: Weakness, Confusion Objective Exam Vital Signs Date Time Temp Pulse Resp B/P (MAP) Pulse Ox O2 Delivery O2 Flow Rate FiO2 11/19/21 07:11 36.1 89 18 114/73 (87) 99 Room Air 11/18/21 20:52 Room Air 11/18/21 20:41 37.3 103 16 108/71 (83) 98 Room Air 11/18/21 17:38 Room Air 11/18/21 14:56 35.5 98 18 96/67 (77) 99 11/18/21 14:10 Room Air Capillary Refill : General Appearance: No Apparent Distress, WD/WN, Thin HEENT: PERRL/EOMI, Moist Mucous Membranes Neck: Normal Inspection, Supple Respiratory: Chest Non Tender, Lungs Clear, Normal Breath Sounds, No Accessory Muscle Use, No Respiratory Distress Cardiovascular: Regular Rate, Rhythm, No Edema, Normal Peripheral Pulses Peripheral Pulses: 2+ Radial Pulses (R), 2+ Radial Pulses (L) Gastrointestinal: soft; No distended; tenderness (around fistula) Extremity: Non Tender, No Pedal Edema Neurologic/Psychiatric: Alert, Oriented x3, 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 Skin: Normal Color, Warm/Dry Results Lab Laboratory Tests 11/18/21 16:21: Glucometer 101 11/18/21 20:38: Glucometer 202H 11/19/21 06:00: White Blood Count 3.0L, Red Blood Count 2.80L, Hemoglobin 8.2L, Hematocrit 25L, Mean Corpuscular Volume 89, Mean Corpuscular Hemoglobin 29, Mean Corpuscular Hemoglobin Concent 33, Red Cell Distribution Width 17.3H, Platelet Count 148, Mean Platelet Volume 11.4, Immature Granulocyte % (Auto) 0, Neutrophils (%) (Auto) 42, Lymphocytes (%) (Auto) 45H, Monocytes (%) (Auto) 9, Eosinophils (%) (Auto) 3, Basophils (%) (Auto) 1, Neutrophils # (Auto) 1.3L, Lymphocytes # (Auto) 1.3, Monocytes # (Auto) 0.3, Eosinophils # (Auto) 0.1, Basophils # (Auto) 0.0, Immature Granulocyte # (Auto) 0.0, Sodium Level 141, Potassium Level 3.8, Chloride Level 110H, Carbon Dioxide Level 19L, Anion Gap 12, Blood Urea Nitrogen 11, Creatinine 0.93, Estimat Glomerular Filtration Rate 64, BUN/Creatinine Ratio 12, Glucose Level 74, Calcium Level 6.3L, Corrected Calcium 7.8L, Total Bilirubin 0.3, Aspartate Amino Transf (AST/SGOT) 27, Alanine Aminotransferase (ALT/SGPT) 17, Alkaline Phosphatase 60, Total Protein 4.9L, Albumin 2.1L Assessment/Plan Assessment/Plan Assessment/Plan Enterocutaneous Fistula Weakness COVID Removed the drain yesterday, will monitor output. At some point will discuss need for strict NPO and TPN depending on continued output. Pt encouraged to ambulate and work with PT. CHRIS LONDON DO 11/19/21 1357: Subjective Time Seen by a Provider: 13:02 Subjective/Events-last exam Pt seen and examined, states no new changes. Review of Systems General: No Chills; Fatigue Pulmonary: No Dyspnea, No Cough Cardiovascular: No: Chest Pain, Palpitations Gastrointestinal: No: Nausea, Vomiting, Abdominal Pain Objective Exam General Appearance: No Apparent Distress, Thin HEENT: PERRL/EOMI, Moist Mucous Membranes Respiratory: Lungs Clear, Normal Breath Sounds, No Accessory Muscle Use, No Respiratory Distress Cardiovascular: Regular Rate, Rhythm, No Murmur Gastrointestinal: soft; No distended; tenderness (around fistula), other (fistula with minimal output in bag) Neurologic/Psychiatric: Alert, Oriented x3 Assessment/Plan Assessment/Plan Assessment/Plan Enterocutaneous Fistula Weakness COVID Removed the drain yesterday, will monitor output. At some point will discuss need for strict NPO and TPN depending on continued output. Pt encouraged to ambulate and work with PT. Supervisory-Addendum Brief Verification & Attestation Participated in pt care: history, MDM, physical Personally performed: exam, history, MDM, supervision of care Care discussed with: Medical Student Procedures: n/a Verification and Attestation of Medical Student E/M Service A medical student performed and documented this service. I then reviewed and verified all information documented by the medical student and made modifications to such information, when appropriate. I personally performed a physical exam, medical decision making and then discussed any differences between the notes and made revisions as necessary to create one note. Chris London , 11/19/21 , 13:57 LUZMA KLINE Nov 19, 2021 08:26 CHRIS LONDON DO Nov 19, 2021 13:57
[2021-11-19] MEDS: SACUBITRIL/VALSARTAN 24/26 MG (ENTRESTO) TABLET PO SCH ×2 (09:22→21:06)
[2021-11-19] MEDS: ASPIRIN 81 MG CHEW (CHILDREN'S ASA) PO SCH (09:22)
[2021-11-19] MEDS: SPIRONOLACTONE 25 MG (ALDACTONE) TAB PO SCH (09:22)
[2021-11-19] MEDS: CALCIUM CARBONATE 500 MG (TUMS) TAB.CHEW PO SCH ×3 (09:22→21:06)
[2021-11-19] MEDS: FUROSEMIDE 40 MG (LASIX) TAB PO SCH (09:22)
[2021-11-19] MEDS: polyethylene glycoL POWDER 17 GM (MIRALAX) PACK PO SCH ×2 (09:23→21:00)
[2021-11-19] MEDS: SENNA W/DOCUSATE (SENOKOT S) TABLET PO SCH ×2 (09:23→21:06)
[2021-11-19] MEDS: SENNOSIDES 8.6 MG (SENOKOT) TAB PO SCH ×2 (09:23→21:06)
[2021-11-19] MEDS: VITAMIN D3 125 MCG (5,000 UNITS) CAPSULE PO SCH (09:23)
[2021-11-19] MEDS: DOCUSATE SODIUM 100 MG (COLACE) CAP PO SCH ×2 (09:24→21:06)
--- NOTE | 2021-11-19 09:59 | Occupational Ther Daily Note ---
OT Current Status-Daily Note Subjective Pt denies pain, but does c/o mild tenderness around stoma. Appearance Pt requested to return to supine in bed at end of treatment. All needs within reach. Mental Status/Objective Patient Orientation: Person, Place, Situation Attachments: IV ADL-Treatment Therapy Code Descriptions/Definitions Functional [place] Measure: 0=Not Assessed/NA 4=Minimal Assistance 1=Total Assistance 5=Supervision or Setup 2=Maximal Assistance 6=Modified [place] 3=Moderate Assistance 7=Complete IndependenceSCALE: Activities may be completed with or without assistive devices. 8-Sfbohbdrhs-ddwssvn completes the activity by him/herself with no assistance from a helper. 5-Set-up or Clean-up Assistance-helper sets up or cleans up; patient completes activity. [place] assists only prior to or following the activity. 4-Supervision or Touching Assistance-helper provides verbal cues and/or touchi ng/steadying and/or contact guard assistance as patient completes activity. Assistance may be provided throughout the activity or intermittently. 3-Partial/Moderate Assistance-helper does LESS THAN HALF the effort. [place] lifts, holds or supports trunk or limbs, but provides less than half the effort. 2-Substantial/Maximal Assistance-helper does MORE THAN HALF the effort. [place] lifts or holds trunk or limbs and provides more than half the effort. 2-Zwqlkvyhy-anavmx does ALL the effort. Patient does none of the effort to complete the activity. Or, the assistance of 2 or more helpers is required for the patient to complete the activity. If activity was not attempted, code reason: 7-Patient Refused. 9-Not Applicable-not attempted and the patient did not perform the activity before the current illness, exacerbation or injury. 10-Not Attempted due to Environmental Limitations-(lack of equipment, weather restraints, etc.). 88-Not Attempted due to Medical Conditions or Safety Concerns. Oral Hygiene (QC): 5 Shower/Bathe Self (QC): 4 Upper Body Dressing (QC): 5 Lower Body Dressing (QC): 4 On/Off Footwear: 5 Toileting Hygiene (QC): 4 Toilet Transfer (QC): 3 Pt reports significant fatigue this date but still wanting to take a shower. 100% of task completed in sitting. Pt often initiating several rest breaks throughout. She declined washing LB as she reports she is unable to tolerate any more. Pt is able to reach feet without difficulty, but is limited by fatigue. Following shower, was able to change and clean colostomy bag with set up assist only. Clothing donned seated on toilet. Steadying assist required as she stood to pull LB clothing up to waist. Pt declines ambulating back to bed and request to transfer into w/c secondary to fatigue. All sit>stand transfers require min- mod a for initial boost. Education OT Patient Education: Disease process, Energy conservation, Modified ADL techniques, Progress toward Goal/Update tx plan, Purpose of tx/functional activities, Safety issues, Transfer techniques Teaching Recipient: Patient Teaching Methods: Discussion Response to Teaching: Verbalize Understanding, Return Demonstration, Reinforcement Needed OT Short Term Goals Short Term Goals Time Frame: Nov 25, 2021 Eatin Oral hygiene: 6 Toileting hygiene: 6 Shower/bathe self: 5 Upper body dressin Lower body dressin Putting on/taking off footwear: 6 OT Materials Development Engineer Goals Fpc Goals Time Frame: Dec 02, 2021 Eating (QC): 6 Oral Hygiene (QC): 6 Toileting Hygiene (QC): 6 Shower/Bathe Self (QC): 6 Upper Body Dressing (QC): 6 Lower Body Dressing (QC): 6 On/Off Footwear (QC): 6 1=Demonstrate adherence to instructed precautions during ADL tasks. 2=Patient will verbalize/demonstrate understanding of assistive devices/modifications for ADL. 3=Patient will improve strength/tolerance for activity to enable patient to perform ADL's. OT Education/Plan Problem List/Assessment Assessment: Decreased Activ Tolerance, Decreased UE Strength, Impaired Funct Balance, Impaired I ADL's, Impaired Self-Care Skills Discharge Recommendations Plan/Recommendations: Continue POC Treatment Plan/Plan of Care Treatment,Training & Education: Yes Patient would benefit from OT for education, treatment and training to promote independence in ADL's, mobility, safety and/or upper extremity function for ADL's. Plan of Care: ADL Retraining, Concurrent Therapy, Functional Mobility, Group Exercise/Act as Ind, UE Funct Exercise/Act Treatment Duration: Dec 02, 2021 Frequency: At least 5 of 7 days/Wk (IRF) Estimated Hrs Per Day: 1.5 hours per day (75-90 min/day ) Agreement: Yes Rehab Potential: Fair Time/GCodes Start Time: 09:05 Stop Time: 10:05 Total Time Billed (hr/min): 60 Billed Treatment Time 1 visit ADL x4 Neli De Paz OT Nov 19, 2021 09:59
--- NOTE | 2021-11-19 11:29 | Occupational Ther Daily Note ---
OT Current Status-Daily Note Subjective Pt agreeable to cotreatment, states she is worn out from shower earlier today. ADL-Treatment Therapy Code Descriptions/Definitions Functional [place] Measure: 0=Not Assessed/NA 4=Minimal Assistance 1=Total Assistance 5=Supervision or Setup 2=Maximal Assistance 6=Modified [place] 3=Moderate Assistance 7=Complete IndependenceSCALE: Activities may be completed with or without assistive devices. 5-Oeqpkdqjaq-qjcilug completes the activity by him/herself with no assistance from a helper. 5-Set-up or Clean-up Assistance-helper sets up or cleans up; patient completes activity. [place] assists only prior to or following the activity. 4-Supervision or Touching Assistance-helper provides verbal cues and/or touching/steadying and/or contact guard assistance as patient completes activity. Assistance may be provided throughout the activity or intermittently. 3-Partial/Moderate Assistance-helper does LESS THAN HALF the effort. [place] lifts, holds or supports trunk or limbs, but provides less than half the effort. 2-Substantial/Maximal Assistance-helper does MORE THAN HALF the effort. [place] lifts or holds trunk or limbs and provides more than half the effort. 5-Gedaybydf-ibyqqw does ALL the effort. Patient does none of the effort to complete the activity. Or, the assistance of 2 or more helpers is required for the patient to complete the activity. If activity was not attempted, code reason: 7-Patient Refused. 9-Not Applicable-not attempted and the patient did not perform the activity before the current illness, exacerbation or injury. 10-Not Attempted due to Environmental Limitations-(lack of equipment, weather restraints, etc.). 88-Not Attempted due to Medical Conditions or Safety Concerns. Other Treatment OT/PT cotreat due to skill of 2 clinicians required which a civil laboratory technician could not perform in order to coordinate UE/LEs, decrease fall risk, focus on higher level balance tasks, and due to pt's limitations in strength and activity tolerance. OT focused on UE placement, reaching activity and cues, PT focused on LE placement, gross overall movement, transfers/mobility. Pt stood at window ledge in room, erasing dry erase marker from window x3 trials. 1st trial pt erased all letters in alphabetical order, 2nd trial alternated between letters and numbers, and 3rd trial erasing numbers from high to low. Pt required moderate cues with 2nd trial for correct sequencing. Pt took seated rest break between each round. Post tx, pt left with PT, all needs met. Education OT Patient Education: Correct positioning, Modified ADL techniques, Progress toward Goal/Update tx plan, Purpose of tx/functional activities, Rehab process Teaching Recipient: Patient Teaching Methods: Discussion Response to Teaching: Verbalize Understanding OT Short Term Goals Short Term Goals Time Frame: Nov 25, 2021 Eatin Oral hygiene: 6 Toileting hygiene: 6 Shower/bathe self: 5 Upper body dressin Lower body dressin Putting on/taking off footwear: 6 OT Construction Management Assistant Goals Detention Goals Time Frame: Dec 02, 2021 Eating (QC): 6 Oral Hygiene (QC): 6 Toileting Hygiene (QC): 6 Shower/Bathe Self (QC): 6 Upper Body Dressing (QC): 6 Lower Body Dressing (QC): 6 On/Off Footwear (QC): 6 1=Demonstrate adherence to instructed precautions during ADL tasks. 2=Patient will verbalize/demonstrate understanding of assistive devices/modifications for ADL. 3=Patient will improve strength/tolerance for activity to enable patient to perform ADL's. OT Education/Plan Problem List/Assessment Assessment: Decreased Activ Tolerance, Decreased UE Strength, Impaired Funct Balance, Impaired I ADL's, Impaired Self-Care Skills Discharge Recommendations Plan/Recommendations: Continue POC Treatment Plan/Plan of Care Patient would benefit from OT for education, treatment and training to promote independence in ADL's, mobility, safety and/or upper extremity function for ADL's. Plan of Care: ADL Retraining, Concurrent Therapy, Functional Mobility, Group Exercise/Act as Ind, UE Funct Exercise/Act Treatment Duration: Dec 02, 2021 Frequency: At least 5 of 7 days/Wk (IRF) Estimated Hrs Per Day: 1.5 hours per day (75-90 min/day ) Agreement: Yes Rehab Potential: Fair Time/GCodes Start Time: 11:00 Stop Time: 11:15 Total Time Billed (hr/min): 15 Billed Treatment Time 1RONAL ADDISON OT Nov 19, 2021 11:29
--- NOTE | 2021-11-19 11:54 | Speech Therapy Daily Note ---
Speech Daily Progress Note Subjective Date Seen by Provider: Nov 19, 2021 Time Seen by Provider: 08:30 The patient was seated upright in her recliner, awake and alert upon entrance to her room by the clinician. The patient greeted the clinician appropriately and was agreeable to participation in the cognitive linguistic treatment session. Objective - Orientation: The patient remains oriented (independently) to month, day of the week, year, and location. The patient required one verbal prompt for recall of the accurate date. The patient participated in functional recall of recent therapeutic activities, as well as, her daily routine and responsibilities at home. As the patient lives alone, she states she is responsible for meals, cleaning, care of her dog, and all ADL's. The patient stated she was driving prior to admission. The patient consistently remains on topic and appropriate throughout the structured conversation. The patient required aid with set-up of her meal (opening butter packets, arranging meal tray, placing items in her tea). The patient consumed her meal without s/s of suspected aspiration (tea, water, oatmeal, anderson, eggs). Assessment Assessment Current Status: Fair Progress Treatment Plan Continue Plan of Care Speech Short Term Goals Short Term Goals Short Term Goals 1. The patient will demonstrate 80% accuracy with memory exercises with mild clinician verbal and visual cueing. Time Frame-STG: One Week. Speech Care Home Goals Care Home Goals 1. The patient will improve her cognitive linguistic skills for safe discharge to the least restrictive environment. Time Frame: Two Weeks. Speech-Plan Treatment Plan Speech Therapy Treatment Plan: Continue Plan of Care Treatment Duration: Dec 02, 2021 Frequency: 4 times per week (Four to five times per day.) Estimated Hrs Per Day: .5 hour per day Rehab Potential: Fair Safety Risks/Education Teaching Recipient: Patient Teaching Methods: Discussion Response to Teaching: Verbalize Understanding Education Topics Provided: Safety in the Home, Responsibilities in the Home Time Speech Therapy Time In: 08:30 Speech Therapy Time Out: 09:00 Total Billed Time: 30 Billed Treatment Time 1FÉLIX ELIZ[address] ST Nov 19, 2021 11:54
--- NOTE | 2021-11-19 12:45 | Physical Therapy Daily Note ---
PT Daily Note-Current Subjective Patient in bed pre tx, agrees to PT, has no complaints of pain. Will be co- treating with OT for part of tx to work on balance activity and due to severe debility, coordinate UE and LE during activity, safety and reduce risk of falls. Appearance Patient in recliner post tx with nurse call, phone, tray, all needs met. Mental Status Patient Orientation: Person, Place, Situation Transfers SCALE: Activities may be completed with or without assistive devices. 8-Htmrmveauy-hsbbzxm completes the activity by him/herself with no assistance from a helper. 5-Set-up or Clean-up Assistance-helper sets up or cleans up; patient completes activity. [place] assists only prior to or following the activity. 4-Supervision or Touching Assistance-helper provides verbal cues and/or touching/steadying and/or contact guard assistance as patient completes activity. Assistance may be provided throughout the activity or intermittently. 3-Partial/Moderate Assistance-helper does LESS THAN HALF the effort. [place] lifts, holds or supports trunk or limbs, but provides less than half the effort. 2-Substantial/Maximal Assistance-helper does MORE THAN HALF the effort. [place] lifts or holds trunk or limbs and provides more than half the effort. 0-Mcxljrhrq-wzwxkk does ALL the effort. Patient does none of the effort to complete the activity. Or, the assistance of 2 or more helpers is required for the patient to complete the activity. If activity was not attempted, code reason: 7-Patient Refused. 9-Not Applicable-not attempted and the patient did not perform the activity before the current illness, exacerbation or injury. 10-Not Attempted due to Environmental Limitations-(lack of equipment, weather restraints, etc.). 88-Not Attempted due to Medical Conditions or Safety Concerns. Roll Left & Right (QC): 6 Lying to Sitting/Side of Bed(Q: 6 Sit to Stand (QC): 3 Chair/Idt-tr-Wfmvm Xfer(QC): 4 Gait Training Distance: 40'x3 Walk 10 feet (QC): 4 Gait Persons Needed: 1 Gait Assistive Device: FWW slow but steady ambulation, fatigues quickly Exercises Seated Therapy Exercises: Ankle pumps, Hip flexion, Hip abd/add Seated Reps: 20 LAQ alternating for 5 min, standing activity x3 with reaching and critical thinking Treatments PT performed bed mobility and transfers, ambulation, LE strengthening, balance and positioning during standing activity, OT performed standing activity, UE positioning and safety during activity. Assessment Current Status: Fair Progress fatigues quickly with activity, needs frequent rest breaks PT Short Term Goals Short Term Goals Time Frame: Nov 25, 2021 Roll Left & Right: 6 Sit to lyin Lying to sitting on side of be: 6 Sit to stand: 4 (CGA) Chair/ktd-tu-wbcuy transfer: 4 (SBA) Walk 10 feet: 4 (SBA) Walk 50 feet with two turns: 4 (SBA) PT Mcfp Goals Mcfp Goals PT Mcfp Goals Time Frame: Dec 09, 2021 Roll Left & Right (QC): 6 Sit to Lying (QC): 6 Lying-Sitting on Side/Bed(QC): 6 Sit to Stand (QC): 6 Chair/Bma-yp-Hwbxg Xfer(QC): 6 Toilet Transfer (QC): 6 Car Transfer (QC): 6 Does the Patient Walk: Yes Walk 10 feet (QC): 6 Walk 50ft with 2 Turns (QC): 6 Walk 150 ft (QC): 6 Walking 10ft on Uneven Surface: 6 1 Step (curb) (QC): 6 4 Steps (QC): 6 12 Steps (QC): 88 Picking up an Object (QC): 6 Wheel 50 feet with 2 turns (QC: 9 Wheel 150 feet: 9 PT Plan Problem List Problem List: Activity Tolerance, Functional Strength, Safety, Balance, Gait, Transfer, Bed Mobility, ROM Treatment/Plan Treatment Plan: Continue Plan of Care Treatment Plan: Bed Mobility, Education, Functional Activity Maikel, Functional Strength, Group Therapy, Gait, Safety, Therapeutic Exercise, Transfers Treatment Duration: Dec 09, 2021 Frequency: At least 5 of 7 days/Wk (IRF) Estimated Hrs Per Day: 1.5 hours per day Patient and/or Family Agrees t: Yes Safety Risks/Education Patient Education: Gait Training, Transfer Techniques, Correct Positioning, Safety Issues Teaching Recipient: Patient Teaching Methods: Demonstration, Discussion Response to Teaching: Reinforcement Needed Time/GCodes Time In: 1100 Time Out: 1200 Total Billed Treatment Time: 60 Total Billed Treatment 1 visit GT 30' EX 30' co-treated with OT from [id number] RANI DUMONT PT Nov 19, 2021 12:45
--- NOTE | 2021-11-19 13:22 | Physical Therapy Daily Note ---
PT Daily Note-Current Subjective Patient in restroom on toilet pre tx, agrees to PT, has no complaints of pain. Appearance Patient in bed post tx with nurse call, phone, tray, all needs met. Mental Status Patient Orientation: Person, Place, Situation Attachments: Colostomy/Ileostomy Transfers SCALE: Activities may be completed with or without assistive devices. 2-Xgoreezkcf-ivhvvtf completes the activity by him/herself with no assistance from a helper. 5-Set-up or Clean-up Assistance-helper sets up or cleans up; patient completes activity. [place] assists only prior to or following the activity. 4-Supervision or Touching Assistance-helper provides verbal cues and/or touching/steadying and/or contact guard assistance as patient completes activity. Assistance may be provided throughout the activity or intermittently. 3-Partial/Moderate Assistance-helper does LESS THAN HALF the effort. [place] lifts, holds or supports trunk or limbs, but provides less than half the effort. 2-Substantial/Maximal Assistance-helper does MORE THAN HALF the effort. [place] lifts or holds trunk or limbs and provides more than half the effort. 2-Demojwrdg-mhvkvy does ALL the effort. Patient does none of the effort to complete the activity. Or, the assistance of 2 or more helpers is required for the patient to complete the activity. If activity was not attempted, code reason: 7-Patient Refused. 9-Not Applicable-not attempted and the patient did not perform the activity before the current illness, exacerbation or injury. 10-Not Attempted due to Environmental Limitations-(lack of equipment, weather restraints, etc.). 88-Not Attempted due to Medical Conditions or Safety Concerns. Sit to Stand (QC): 3 Chair/Uyh-ds-Bgwpr Xfer(QC): 4 Gait Training Distance: 10' Walk 10 feet (QC): 4 Gait Persons Needed: 1 Gait Assistive Device: FWW Exercises Supine Ex: Ankle pumps, Quad Set, Glut sets, Heel Slides, Short Arc Quads, Straight leg raise (AAROM), Hip abd/add Supine Reps: 20 Treatments transfers, ambulation, LE strengthening Assessment Current Status: Fair Progress patient continues to have severe fatigue PT Short Term Goals Short Term Goals Time Frame: Nov 25, 2021 Roll Left & Right: 6 Sit to lyin Lying to sitting on side of be: 6 Sit to stand: 4 (CGA) Chair/ral-cc-vrkmb transfer: 4 (SBA) Walk 10 feet: 4 (SBA) Walk 50 feet with two turns: 4 (SBA) PT Mcfp Goals Sailor Goals PT Sailor Goals Time Frame: Dec 09, 2021 Roll Left & Right (QC): 6 Sit to Lying (QC): 6 Lying-Sitting on Side/Bed(QC): 6 Sit to Stand (QC): 6 Chair/Lae-rf-Juyzh Xfer(QC): 6 Toilet Transfer (QC): 6 Car Transfer (QC): 6 Does the Patient Walk: Yes Walk 10 feet (QC): 6 Walk 50ft with 2 Turns (QC): 6 Walk 150 ft (QC): 6 Walking 10ft on Uneven Surface: 6 1 Step (curb) (QC): 6 4 Steps (QC): 6 12 Steps (QC): 88 Picking up an Object (QC): 6 Wheel 50 feet with 2 turns (QC: 9 Wheel 150 feet: 9 PT Plan Problem List Problem List: Activity Tolerance, Functional Strength, Safety, Balance, Gait, Transfer, Bed Mobility, ROM Treatment/Plan Treatment Plan: Continue Plan of Care Treatment Plan: Bed Mobility, Education, Functional Activity Maikel, Functional Strength, Group Therapy, Gait, Safety, Therapeutic Exercise, Transfers Treatment Duration: Dec 09, 2021 Frequency: At least 5 of 7 days/Wk (IRF) Estimated Hrs Per Day: 1.5 hours per day Patient and/or Family Agrees t: Yes Safety Risks/Education Patient Education: Gait Training, Transfer Techniques, Correct Positioning, Safety Issues Teaching Recipient: Patient Teaching Methods: Demonstration, Discussion Response to Teaching: Reinforcement Needed Time/GCodes Time In: 1300 Time Out: 1315 Total Billed Treatment Time: 15 Total Billed Treatment 1 visit EX 15' RANI DUMONT PT Nov 19, 2021 13:22
--- NOTE | 2021-11-19 16:50 | Cardiology Progress Note ---
Progress Note-Cardiology Events since last exam Date Seen by Provider: Nov 19, 2021 Time Seen by Provider: 16:44 Events since last exam We are following her due to heart failure that was discovered in the setting of COVID infection. On 11/18 she was transferred from the inpatient medical floor to inpatient rehabilitation. She continues to slowly improve. Her breathing is better. She denies chest discomfort, palpitations, or syncope. She had some mild ankle edema but this has improved. Certain portions of this document may have been dictated utilizing voice recognition technology. Inherent to this technology, typographical and grammatical errors may exist. As much as I am diligent to identify and correct these mistakes, some errors may remain in the document. Vitals Last set of Vitals Signs Vital Signs 11/19/21 11/19/21 07:11 09:00 Temp 36.1 Pulse 89 Resp 18 B/P (MAP) 114/73 (87) Pulse Ox 99 O2 Delivery Room Air Labs Labs Laboratory Tests 11/19/21 06:00 Exam Vital Signs Vital Signs Date Time Temp Pulse Resp B/P (MAP) Pulse Ox O2 Delivery O2 Flow Rate FiO2 11/19/21 09:00 Room Air 11/19/21 07:11 36.1 89 18 114/73 (87) 99 Physical Exam Due to the patient's COVID status, I viewed the patient and spoke to her from the doorway. General: The patient is not on a ventilator. HENT: Normocephalic. Atraumatic. Skin: There is no pallor. Neurologic: Oriented x3. Cranial nerves III through XII grossly intact. Moving all 4 extremities. Psychiatric: Appears cooperative. Labs Laboratory Tests Test 11/18/21 20:38 11/19/21 06:00 11/19/21 11:14 11/19/21 15:26 Range/Units Glucometer 202 H 123 H 122 H 70-110 MG/DL White Blood Count 3.0 L 4.3-11.0 10^3/uL Red Blood Count 2.80 L 3.80-5.11 10^6/uL Hemoglobin 8.2 L 11.5-16.0 g/dL Hematocrit 25 L 35-52 % Mean Corpuscular Volume 89 80-99 fL Mean Corpuscular Hemoglobin 29 25-34 pg Mean Corpuscular Hemoglobin Concent 33 32-36 g/dL Red Cell Distribution Width 17.3 H 10.0-14.5 % Platelet Count 148 130-400 10^3/uL Mean Platelet Volume 11.4 9.0-12.2 fL Immature Granulocyte % (Auto) 0 % Neutrophils (%) (Auto) 42 42-75 % Lymphocytes (%) (Auto) 45 H 12-44 % Monocytes (%) (Auto) 9 0-12 % Eosinophils (%) (Auto) 3 0-10 % Basophils (%) (Auto) 1 0-10 % Neutrophils # (Auto) 1.3 L 1.8-7.8 10^3/uL Lymphocytes # (Auto) 1.3 1.0-4.0 10^3/uL Monocytes # (Auto) 0.3 0.0-1.0 10^3/uL Eosinophils # (Auto) 0.1 0.0-0.3 10^3/uL Basophils # (Auto) 0.0 0.0-0.1 10^3/uL Immature Granulocyte # (Auto) 0.0 0.0-0.1 10^3/uL Sodium Level 141 135-145 MMOL/L Potassium Level 3.8 3.6-5.0 MMOL/L Chloride Level 110 H 98-107 MMOL/L Carbon Dioxide Level 19 L 21-32 MMOL/L Anion Gap 12 5-14 MMOL/L Blood Urea Nitrogen 11 7-18 MG/DL Creatinine 0.93 0.60-1.30 MG/DL Estimat Glomerular Filtration Rate 64 BUN/Creatinine Ratio 12 Glucose Level 74 70-105 MG/DL Calcium Level 6.3 L 8.5-10.1 MG/DL Corrected Calcium 7.8 L 8.5-10.1 MG/DL Total Bilirubin 0.3 0.1-1.0 MG/DL Aspartate Amino Transf (AST/SGOT) 27 5-34 U/L Alanine Aminotransferase (ALT/SGPT) 17 0-55 U/L Alkaline Phosphatase 60 40-136 U/L Total Protein 4.9 L 6.4-8.2 GM/DL Albumin 2.1 L 3.2-4.5 GM/DL Diagnosis/Problems Diagnosis/Problems (1) Acute heart failure with reduced ejection fraction and diastolic dysfunction Assessment & Plan: Symptomatically improved. She is on carvedilol, Entresto and spironolactone. (2) Cardiomyopathy Assessment & Plan: Her most recent previous echocardiogram from 2020 showed mild left ventricular systolic dysfunction. Now she has severe left ventricular systolic dysfunction. She may need an ischemic evaluation once she recovers from her COVID. We may also want to consider a LifeVest prior to discharge. (3) Primary hypertension Assessment & Plan: Blood pressure is reasonably controlled with the present combination of medications. If anything, at times she is running on the low side. (4) Mixed hyperlipidemia Assessment & Plan: It appears as though she may have been on both atorvastatin and fenofibrate at home. I will resume the atorvastatin. I will hold off on restarting fenofibrate due to her acute debility with potentially increased risk for medication interactions between the atorvastatin and fenofibrate. GABE COOPER JR, MD Nov 19, 2021 16:50
[2021-11-19 19:36] VITALS: BP 163/84
[2021-11-19 20:49] VITALS: BP 123/82
[2021-11-19] MEDS: ONDANSETRON 4 MG (ZOFRAN) ORAL DISSOLVE TAB PO PRN (21:06)
[2021-11-19] MEDS: ENOXAPARIN INJECTION 30 MG/0.3 ML SYR SC SCH (21:06)
[2021-11-20] MEDS: inSUlin ASPART (NovoLOG) 1 UNIT/0.01 ML (CHARGE PER UNIT) SC SCH ×4 (06:27→21:22)
[2021-11-20 07:07] VITALS: BP 115/75
--- NOTE | 2021-11-20 07:12 | PM&R Progress Note ---
Subjective HPI/CC On Admission Date Seen by Provider: Nov 20, 2021 Time Seen by Provider: 12:00 Subjective/Events-last exam 11/20/2021: Doing well Eating better today after emesis last night Compazine was helpful No pain reported No dyspnea 11/19/2021: Pt is doing well No oxygen required Dietary consult for poor nutrition White count is 3 Hemoglobin is 8.2 Review of Systems General: Fatigue, Malaise Gastrointestinal: Nausea Objective Exam Vital Signs Vital Signs Date Time Temp Pulse Resp B/P (MAP) Pulse Ox O2 Delivery O2 Flow Rate FiO2 11/20/21 09:59 Room Air 11/20/21 08:39 72 116/78 (91) 11/20/21 07:07 36.8 20 99 Capillary Refill : General Appearance: No Apparent Distress, WD/WN, Chronically ill, Thin HEENT: PERRL/EOMI, Normal ENT Inspection, Pharynx Normal Neck: Full Range of Motion, Normal Inspection, Non Tender, Supple, Carotid Bruit Respiratory: Chest Non Tender, Lungs Clear, Normal Breath Sounds, No Accessory Muscle Use, No Respiratory Distress Cardiovascular: Regular Rate, Rhythm, No Edema, No Gallop, No JVD, No Murmur, Normal Peripheral Pulses Gastrointestinal: Normal Bowel Sounds, No Organomegaly, No Pulsatile Mass, Non Tender, Soft Back: Normal Inspection, No CVA Tenderness, No Vertebral Tenderness Extremity: Normal Capillary Refill, Normal Inspection, Normal Range of Motion, Non Tender, No Calf Tenderness, No Pedal Edema Neurologic/Psychiatric: Alert, Oriented x3, 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, java lead developer II-XII Norm as Tested, Abnormal Gait, Depressed Affect, Motor Weakness (generalized) Skin: Normal Color, Warm/Dry Lymphatic: No Adenopathy Results/Procedures Lab Patient resulted labs reviewed. FIM Transfers Therapy Code Descriptions/Definitions Functional [place] Measure: 0=Not Assessed/NA 4=Minimal Assistance 1=Total Assistance 5=Supervision or Setup 2=Maximal Assistance 6=Modified [place] 3=Moderate Assistance 7=Complete IndependenceSCALE: Activities may be completed with or without assistive devices. 7-Fesxcnpjdr-klnuvxg completes the activity by him/herself with no assistance from a helper. 5-Set-up or Clean-up Assistance-helper sets up or cleans up; patient completes activity. [place] assists only prior to or following the activity. 4-Supervision or Touching Assistance-helper provides verbal cues and/or touching/steadying and/or contact guard assistance as patient completes activity. Assistance may be provided throughout the activity or intermittently. 3-Partial/Moderate Assistance-helper does LESS THAN HALF the effort. [place] lifts, holds or supports trunk or limbs, but provides less than half the effort. 2-Substantial/Maximal Assistance-helper does MORE THAN HALF the effort. [place] lifts or holds trunk or limbs and provides more than half the effort. 4-Ucfeiqypq-xszyil does ALL the effort. Patient does none of the effort to complete the activity. Or, the assistance of 2 or more helpers is required for the patient to complete the activity. If activity was not attempted, code reason: 7-Patient Refused. 9-Not Applicable-not attempted and the patient did not perform the activity before the current illness, exacerbation or injury. 10-Not Attempted due to Environmental Limitations-(lack of equipment, weather restraints, etc.). 88-Not Attempted due to Medical Conditions or Safety Concerns. Roll Left to Right (QC): 6 Sit to Lying (QC): 6 Sit to Stand (QC): 3 Chair/Tsn-yy-Ywjqf Xfer(QC): 4 Car Transfer (QC): 4 Gait Training Does the Patient Walk?: Yes Distance: 10' Walk 10 feet (QC): 4 Walk 50 ft with 2 Turns(QC): 4 Walk 150 ft (QC): 88 Walking 10ft/uneven surface-QC: 10 Gait Persons Needed: 1 Gait Assistive Device: FWW Wheelchair Training Does the Pt Use a Wheelchair?: No Wheel 50 ft with 2 turns (QC): 9 Wheel 150 ft (QC): 9 Stair Training #of Steps: 1 1 Step (curb) (QC): 4 4 Steps (QC): 88 12 Steps (QC): 88 Balance Picking up an Object (QC): 88 ADL-Treatment Eating (QC): 5 Oral Hygiene (QC): 5 Shower/Bathe Self (QC): 4 Upper Body Dressing (QC): 5 Lower Body Dressing (QC): 4 On/Off Footwear (QC): 5 Toileting Hygiene (QC): 4 Toilet Transfer (QC): 3 Assessment/Plan Assessment and Plan Assess & Plan/Chief Complaint Assessment: Myopathy Malnutrition prealbumin 11 COVID infection with vaccination and 1 booster -Central line maintained -No oxygen required at this time -Currently on isolation for 20 days 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 Diet: Regular DVT prophylaxis: Lovenox and SCDs 11/19/2021: Dietary consult appreciated Continue therapy 11/20/2021: Monitor N/V IS PT OT (1) Acute heart failure with reduced ejection fraction and diastolic dysfunction Assessment & Plan: Symptomatically improved. She is on carvedilol, Entresto and spironolactone. (2) Cardiomyopathy Assessment & Plan: Her most recent previous echocardiogram from 2020 showed mild left ventricular systolic dysfunction. Now she has severe left ventricular systolic dysfunction. She may need an ischemic evaluation once she recovers from her COVID. We may also want to consider a LifeVest prior to discharge. (3) Primary hypertension Assessment & Plan: Blood pressure is reasonably controlled with the present combination of medications. If anything, at times she is running on the low side. (4) Mixed hyperlipidemia Assessment & Plan: It appears as though she may have been on both atorvastatin and fenofibrate at home. I will resume the atorvastatin. I will hold off on restarting fenofibrate due to her acute debility with potentially increased risk for medication interactions between the atorvastatin and fenofibrate. LORENZO MIMS DO Nov 20, 2021 07:12
--- NOTE | 2021-11-20 08:20 | Progress Note - Surgery ---
LUZMA KLINE 11/20/21 0820: Subjective Date Seen by a Provider: Nov 20, 2021 Time Seen by a Provider: 08:01 Subjective/Events-last exam Ms. Garcia is being followed for a drain that was placed in her ventral abdomen. It was pulled 2 days ago. 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 She continues to have a "little" output into her bag. Nursing reports they have not been measuring strict I&Os on the contents on the ostomy bag but they will start doing that. She reports tenderness in her abdomen around the fistula but has no other concerns. She reports episodes of nausea and vomiting overnight that resolved with prochlorperazine. Review of Systems General: No Chills, No Fatigue HEENT: No Head Aches, No Visual Changes Pulmonary: No Dyspnea; Cough Cardiovascular: No: Chest Pain, Palpitations Gastrointestinal: Nausea, Vomiting, Abdominal Pain Neurological: No: Weakness, Confusion Objective Exam Vital Signs Date Time Temp Pulse Resp B/P (MAP) Pulse Ox O2 Delivery O2 Flow Rate FiO2 11/20/21 07:36 Room Air 11/20/21 07:07 36.8 92 20 115/75 (88) 99 Room Air 11/19/21 21:00 Room Air 11/19/21 20:49 36.8 87 16 123/82 (96) 99 Room Air 11/19/21 09:00 Room Air Capillary Refill : General Appearance: No Apparent Distress, Chronically ill, Thin HEENT: PERRL/EOMI, Moist Mucous Membranes Neck: Non Tender, Supple Respiratory: Chest Non Tender, Lungs Clear, Normal Breath Sounds, No Accessory Muscle Use, No Respiratory Distress Cardiovascular: Regular Rate, Rhythm, Normal Peripheral Pulses Peripheral Pulses: 2+ Radial Pulses (R), 2+ Radial Pulses (L) Gastrointestinal: soft; No distended; tenderness (Around fistula), other (Ostomy bag covering fistula) Extremity: Non Tender, No Pedal Edema Neurologic/Psychiatric: Alert, Oriented x3 Skin: Normal Color, Warm/Dry Results Lab Laboratory Tests 11/19/21 11:14: Glucometer 123H 11/19/21 15:26: Glucometer 122H 11/19/21 20:48: Glucometer 144H 11/20/21 06:18: Glucometer 84 Assessment/Plan Assessment/Plan Assessment/Plan Enterocutaneous Fistula Weakness COVID Removed the drain 2 days ago will monitor output. Monitor I&Os of fistula to assess actual output amount At some point will discuss need for strict NPO and TPN depending on continued output. Pt encouraged to ambulate and work with PT. CHRIS LONDON DO 11/20/21 1020: Subjective Time Seen by a Provider: 09:26 Subjective/Events-last exam Pt seen and examined, resting comfortably in bed. No new complaints. Review of Systems General: No Chills HEENT: No Head Aches, No Visual Changes Pulmonary: No Dyspnea; Cough Cardiovascular: No: Chest Pain, Palpitations Gastrointestinal: Nausea, Vomiting, Abdominal Pain Objective Exam General Appearance: No Apparent Distress, Chronically ill, Thin HEENT: Moist Mucous Membranes Respiratory: Lungs Clear, Normal Breath Sounds, No Accessory Muscle Use, No Respiratory Distress Cardiovascular: No Edema, No Murmur Gastrointestinal: soft; No distended; tenderness (Around fistula), other (Ostomy bag covering fistula) Assessment/Plan Assessment/Plan Assessment/Plan Enterocutaneous Fistula Weakness COVID Removed the drain 2 days ago will monitor output. Monitor I&Os, Nursing asked to please document fistula output amount At some point will discuss need for strict NPO and TPN depending on continued output. Pt encouraged to ambulate and work with PT. Supervisory-Addendum Brief Verification & Attestation Participated in pt care: history, MDM, physical Personally performed: exam, history, MDM, supervision of care Care discussed with: Medical Student Procedures: n/a Verification and Attestation of Medical Student E/M Service A medical student performed and documented this service. I then reviewed and verified all information documented by the medical student and made modifications to such information, when appropriate. I personally performed a physical exam, medical decision making and then discussed any differences between the notes and made revisions as necessary to create one note. Chris London , 11/20/21 , 10:20 LUZMA KLINE Nov 20, 2021 08:20 CHRIS LONDON DO Nov 20, 2021 10:20
[2021-11-20] MEDS: SACUBITRIL/VALSARTAN 24/26 MG (ENTRESTO) TABLET PO SCH ×2 (08:30→22:02)
[2021-11-20] MEDS: ASPIRIN 81 MG CHEW (CHILDREN'S ASA) PO SCH (08:30)
[2021-11-20] MEDS: SPIRONOLACTONE 25 MG (ALDACTONE) TAB PO SCH (08:30)
[2021-11-20] MEDS: FUROSEMIDE 40 MG (LASIX) TAB PO SCH (08:30)
[2021-11-20] MEDS: CALCIUM CARBONATE 500 MG (TUMS) TAB.CHEW PO SCH ×3 (08:33→22:02)
[2021-11-20] MEDS: DOCUSATE SODIUM 100 MG (COLACE) CAP PO SCH ×2 (08:38→22:13)
[2021-11-20] MEDS: polyethylene glycoL POWDER 17 GM (MIRALAX) PACK PO SCH ×2 (08:38→22:13)
[2021-11-20] MEDS: SENNA W/DOCUSATE (SENOKOT S) TABLET PO SCH ×2 (08:38→22:13)
[2021-11-20] MEDS: SENNOSIDES 8.6 MG (SENOKOT) TAB PO SCH ×2 (08:38→22:13)
[2021-11-20] MEDS: KCL 20 MEQ TAB (K-DUR) PO SCH (08:38)
[2021-11-20] MEDS: VITAMIN D3 125 MCG (5,000 UNITS) CAPSULE PO SCH (08:38)
[2021-11-20 08:39] VITALS: BP 116/78
--- NOTE | 2021-11-20 11:06 | Physical Therapy Daily Note ---
PT Daily Note-Current Subjective Pt supine in bed upon arrival to room, agreeable to PT treatment; however, she states that she would only like to complete bed exercises as she is tired due to being up all night sick. Appearance Following session, pt supine in bed with call light, phone and tray table all within reach. All needs met at this time. Mental Status Patient Orientation: Person, Place, Situation Transfers SCALE: Activities may be completed with or without assistive devices. 8-Casrsrfjhb-honbzjf completes the activity by him/herself with no assistance from a helper. 5-Set-up or Clean-up Assistance-helper sets up or cleans up; patient completes activity. [place] assists only prior to or following the activity. 4-Supervision or Touching Assistance-helper provides verbal cues and/or touching/steadying and/or contact guard assistance as patient completes activity. Assistance may be provided throughout the activity or intermittently. 3-Partial/Moderate Assistance-helper does LESS THAN HALF the effort. [place] lifts, holds or supports trunk or limbs, but provides less than half the effort. 2-Substantial/Maximal Assistance-helper does MORE THAN HALF the effort. [place] lifts or holds trunk or limbs and provides more than half the effort. 2-Cjlukegsm-tgwngq does ALL the effort. Patient does none of the effort to complete the activity. Or, the assistance of 2 or more helpers is required for the patient to complete the activity. If activity was not attempted, code reason: 7-Patient Refused. 9-Not Applicable-not attempted and the patient did not perform the activity before the current illness, exacerbation or injury. 10-Not Attempted due to Environmental Limitations-(lack of equipment, weather restraints, etc.). 88-Not Attempted due to Medical Conditions or Safety Concerns. 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 Operations Manager Goals Correction Goals PT Correction Goals Time Frame: Dec 09, 2021 Roll Left & Right (QC): 6 Sit to Lying (QC): 6 Lying-Sitting on Side/Bed(QC): 6 Sit to Stand (QC): 6 Chair/Uvd-uj-Uhaox Xfer(QC): 6 Toilet Transfer (QC): 6 Car Transfer (QC): 6 Does the Patient Walk: Yes Walk 10 feet (QC): 6 Walk 50ft with 2 Turns (QC): 6 Walk 150 ft (QC): 6 Walking 10ft on Uneven Surface: 6 1 Step (curb) (QC): 6 4 Steps (QC): 6 12 Steps (QC): 88 Picking up an Object (QC): 6 Wheel 50 feet with 2 turns (QC: 9 Wheel 150 feet: 9 PT Plan Problem List Problem List: Activity Tolerance, Functional Strength, Safety, Balance, Gait, Transfer, Bed Mobility, ROM Treatment/Plan Treatment Plan: Continue Plan of Care Treatment Plan: Bed Mobility, Education, Functional Activity Maikel, Functional Strength, Group Therapy, Gait, Safety, Therapeutic Exercise, Transfers Treatment Duration: Dec 09, 2021 Frequency: At least 5 of 7 days/Wk (IRF) Estimated Hrs Per Day: 1.5 hours per day Patient and/or Family Agrees t: Yes Time/GCodes Time In: 1044 Time Out: 1100 Total Billed Treatment 1 visit EX (15') CELESTINA LÓPEZ PT Nov 20, 2021 11:05
[2021-11-20 17:22] VITALS: BP 126/78
[2021-11-20 20:01] VITALS: BP 113/76
[2021-11-20] MEDS: ENOXAPARIN INJECTION 30 MG/0.3 ML SYR SC SCH (21:00)
[2021-11-20] MEDS: CATHETER FLUSH 10 ML SYR IVP SCH (22:00)
[2021-11-21] MEDS: CATHETER FLUSH 10 ML SYR IVP SCH ×3 (06:17→22:32)
[2021-11-21] MEDS: inSUlin ASPART (NovoLOG) 1 UNIT/0.01 ML (CHARGE PER UNIT) SC SCH ×4 (06:17→22:21)
[2021-11-21] MEDS: KCL 20 MEQ TAB (K-DUR) PO SCH (06:17)
[2021-11-21 07:08] VITALS: BP 107/69
--- NOTE | 2021-11-21 07:09 | PM&R Progress Note ---
Subjective HPI/CC On Admission Date Seen by Provider: Nov 21, 2021 Time Seen by Provider: 12:00 Subjective/Events-last exam 11/21/2021: Doing well No major concerns Dr Nieves did evaluate the fistula No cough of hypoxia 11/20/2021: Doing well Eating better today after emesis last night Compazine was helpful No pain reported No dyspnea 11/19/2021: Pt is doing well No oxygen required Dietary consult for poor nutrition White count is 3 Hemoglobin is 8.2 Review of Systems General: Fatigue, Malaise Pulmonary: Dyspnea Objective Exam Vital Signs Vital Signs Date Time Temp Pulse Resp B/P (MAP) Pulse Ox O2 Delivery O2 Flow Rate FiO2 11/21/21 21:00 Room Air 11/21/21 19:45 36.6 92 18 105/59 (74) 100 Capillary Refill : General Appearance: No Apparent Distress, WD/WN, Chronically ill, Thin HEENT: PERRL/EOMI, Normal ENT Inspection, Pharynx Normal Neck: Full Range of Motion, Normal Inspection, Non Tender, Supple, Carotid Bruit Respiratory: Chest Non Tender, Lungs Clear, Normal Breath Sounds, No Accessory Muscle Use, No Respiratory Distress Cardiovascular: Regular Rate, Rhythm, No Edema, No Gallop, No JVD, No Murmur, Normal Peripheral Pulses Gastrointestinal: Normal Bowel Sounds, No Organomegaly, No Pulsatile Mass, Non Tender, Soft Back: Normal Inspection, No CVA Tenderness, No Vertebral Tenderness Extremity: Normal Capillary Refill, Normal Inspection, Normal Range of Motion, Non Tender, No Calf Tenderness, No Pedal Edema Neurologic/Psychiatric: Alert, Oriented x3, 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, community assistant II-XII Norm as Tested, Abnormal Gait, Depressed Affect, Motor Weakness (generalized) Skin: Normal Color, Warm/Dry Lymphatic: No Adenopathy Results/Procedures Lab Patient resulted labs reviewed. FIM Transfers Therapy Code Descriptions/Definitions Functional [place] Measure: 0=Not Assessed/NA 4=Minimal Assistance 1=Total Assistance 5=Supervision or Setup 2=Maximal Assistance 6=Modified [place] 3=Moderate Assistance 7=Complete IndependenceSCALE: Activities may be completed with or without assistive devices. 6-Xpgabkgorg-wcxvioo completes the activity by him/herself with no assistance from a helper. 5-Set-up or Clean-up Assistance-helper sets up or cleans up; patient completes activity. [place] assists only prior to or following the activity. 4-Supervision or Touching Assistance-helper provides verbal cues and/or touching/steadying and/or contact guard assistance as patient completes activity. Assistance may be provided throughout the activity or intermittently. 3-Partial/Moderate Assistance-helper does LESS THAN HALF the effort. [place] lifts, holds or supports trunk or limbs, but provides less than half the effort. 2-Substantial/Maximal Assistance-helper does MORE THAN HALF the effort. [place] lifts or holds trunk or limbs and provides more than half the effort. 2-Yebptphjn-oxfhfm does ALL the effort. Patient does none of the effort to complete the activity. Or, the assistance of 2 or more helpers is required for the patient to complete the activity. If activity was not attempted, code reason: 7-Patient Refused. 9-Not Applicable-not attempted and the patient did not perform the activity before the current illness, exacerbation or injury. 10-Not Attempted due to Environmental Limitations-(lack of equipment, weather restraints, etc.). 88-Not Attempted due to Medical Conditions or Safety Concerns. Roll Left to Right (QC): 6 Sit to Lying (QC): 6 Sit to Stand (QC): 3 Chair/Xzz-lf-Qcwit Xfer(QC): 4 Car Transfer (QC): 4 Gait Training Does the Patient Walk?: Yes Distance: 10' Walk 10 feet (QC): 4 Walk 50 ft with 2 Turns(QC): 4 Walk 150 ft (QC): 88 Walking 10ft/uneven surface-QC: 10 Gait Persons Needed: 1 Gait Assistive Device: FWW Wheelchair Training Does the Pt Use a Wheelchair?: No Wheel 50 ft with 2 turns (QC): 9 Wheel 150 ft (QC): 9 Stair Training #of Steps: 1 1 Step (curb) (QC): 4 4 Steps (QC): 88 12 Steps (QC): 88 Balance Picking up an Object (QC): 88 ADL-Treatment Eating (QC): 5 Oral Hygiene (QC): 5 Shower/Bathe Self (QC): 4 Upper Body Dressing (QC): 5 Lower Body Dressing (QC): 4 On/Off Footwear (QC): 5 Toileting Hygiene (QC): 4 Toilet Transfer (QC): 3 Assessment/Plan Assessment and Plan Assess & Plan/Chief Complaint Assessment: Myopathy Malnutrition prealbumin 11 COVID infection with vaccination and 1 booster -Central line maintained -No oxygen required at this time -Currently on isolation for 20 days S/p ileostomy reversal with fistula and abscess October 2021 Dr Nieves -General surgery consulted again for possible drain removal today, 11/18/21 -Drain removed 11/18/21 after placed from [facility] IR 10/14 -Levofloxacin last day CHF -Echo EF 20-25% -Lasix and spironolactone and Entresto Type II CT -Cardiology following, appreciate their recs -Telemetry DC Afib -Lovenox HTN -Well controlled currently Diabetes -SSI CKD3a -BUN/Cr wnl Recent hospitalization at [place] 10/20-11/11 following stay at [facility] 10/14 for pelvic abscess drainage. Diet: Regular DVT prophylaxis: Lovenox and SCDs 11/19/2021: Dietary consult appreciated Continue therapy 11/20/2021: Monitor N/V IS PT OT 11/21/2021: Monitor nutrition Supportive care (1) Acute heart failure with reduced ejection fraction and diastolic dysfunction Assessment & Plan: Symptomatically improved. She is on carvedilol, Entresto and spironolactone. (2) Cardiomyopathy Assessment & Plan: Her most recent previous echocardiogram from 2020 showed mild left ventricular systolic dysfunction. Now she has severe left ventricular systolic dysfunction. She may need an ischemic evaluation once she recovers from her COVID. We may also want to consider a LifeVest prior to discharge. (3) Primary hypertension Assessment & Plan: Blood pressure is reasonably controlled with the present combination of medications. If anything, at times she is running on the low side. (4) Mixed hyperlipidemia Assessment & Plan: It appears as though she may have been on both atorvastatin and fenofibrate at home. I will resume the atorvastatin. I will hold off on restarting fenofibrate due to her acute debility with potentially increased risk for medication interactions between the atorvastatin and fenofibrate. LORENZO MIMS DO Nov 21, 2021 07:09
[2021-11-21 08:44] VITALS: BP 127/80
[2021-11-21] MEDS: VITAMIN D3 125 MCG (5,000 UNITS) CAPSULE PO SCH (08:44)
[2021-11-21] MEDS: FUROSEMIDE 40 MG (LASIX) TAB PO SCH (08:44)
[2021-11-21] MEDS: SACUBITRIL/VALSARTAN 24/26 MG (ENTRESTO) TABLET PO SCH ×2 (08:44→22:31)
[2021-11-21] MEDS: ASPIRIN 81 MG CHEW (CHILDREN'S ASA) PO SCH (08:44)
[2021-11-21] MEDS: CALCIUM CARBONATE 500 MG (TUMS) TAB.CHEW PO SCH ×3 (08:44→22:31)
[2021-11-21] MEDS: SPIRONOLACTONE 25 MG (ALDACTONE) TAB PO SCH (08:45)
[2021-11-21] MEDS: polyethylene glycoL POWDER 17 GM (MIRALAX) PACK PO SCH ×2 (08:47→22:22)
[2021-11-21] MEDS: DOCUSATE SODIUM 100 MG (COLACE) CAP PO SCH ×2 (08:47→22:22)
[2021-11-21] MEDS: SENNOSIDES 8.6 MG (SENOKOT) TAB PO SCH ×2 (08:48→22:21)
[2021-11-21] MEDS: SENNA W/DOCUSATE (SENOKOT S) TABLET PO SCH ×2 (08:48→22:22)
--- NOTE | 2021-11-21 11:23 | Progress Note - Surgery ---
LUZMA KLINE 11/21/21 1123: Subjective Date Seen by a Provider: Nov 21, 2021 Time Seen by a Provider: 10:39 Subjective/Events-last exam Ms. Garcia is being followed for a drain that was placed in her ventral abdomen. It was pulled 3 days ago. 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 Output of the fistula has been monitored with 55 mL of output reported yesterday in total and 30 mL output reported so far today. She endorses minor pain around the site of the fistula but has no other complaints. She says her breathing is okay and she continues to work with PT. Review of Systems General: No Chills, No Fatigue HEENT: No Head Aches, No Visual Changes Pulmonary: No Dyspnea; Cough Cardiovascular: No: Chest Pain, Palpitations Gastrointestinal: Abdominal Pain; No: Nausea, Vomiting Neurological: No: Weakness, Confusion Objective Exam Vital Signs Date Time Temp Pulse Resp B/P (MAP) Pulse Ox O2 Delivery O2 Flow Rate FiO2 11/21/21 09:48 Room Air 11/21/21 08:44 93 127/80 (96) 11/21/21 07:08 36.7 90 16 107/69 (82) 98 Room Air 11/20/21 21:00 Room Air 11/20/21 20:01 36.2 91 18 113/76 (88) 99 Room Air 11/20/21 17:22 97 126/78 (94) I & O 11/21/21 07:00 Intake Total 350 ml Output Total 50 ml Balance 300 ml Capillary Refill : General Appearance: No Apparent Distress, Chronically ill, Thin HEENT: PERRL/EOMI, Moist Mucous Membranes Neck: Non Tender, Supple Respiratory: Chest Non Tender, Lungs Clear, Normal Breath Sounds, No Accessory Muscle Use, No Respiratory Distress Cardiovascular: Regular Rate, Rhythm, No Edema, Normal Peripheral Pulses Peripheral Pulses: 2+ Radial Pulses (R), 2+ Radial Pulses (L) Gastrointestinal: soft; No distended, No guarding, No rebound; tenderness (Around fistula), other (Ostomy bag covering fistula) Extremity: Non Tender, No Pedal Edema Neurologic/Psychiatric: Alert, Oriented x3, 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 Skin: Normal Color, Warm/Dry Results Lab Laboratory Tests 11/20/21 16:05: Glucometer 102 11/20/21 20:33: Glucometer 191H 11/21/21 05:09: Glucometer 82 11/21/21 11:16: Glucometer 147H Assessment/Plan Assessment/Plan Assessment/Plan Enterocutaneous Fistula Weakness ELLI Removed the drain 3 days ago will monitor output. Monitor fistula output. Yesterday was 55 mL total with 30 mL so far today. Likely a low-output fistula. At some point will discuss need for strict NPO and TPN depending on continued output. Pt encouraged to ambulate and work with PT. CHRIS LONDON DO 11/21/21 1401: Subjective Time Seen by a Provider: 12:39 Subjective/Events-last exam Pt seen and examined, denies any new problems. States she feels ok. Nurse is concerned because output from fistula looks "more red" today. Pt is still having small BM's. Review of Systems General: Fatigue HEENT: No Head Aches, No Visual Changes Pulmonary: No Dyspnea; Cough Cardiovascular: No: Chest Pain, Palpitations Gastrointestinal: Abdominal Pain; No: Nausea, Vomiting Objective Exam General Appearance: No Apparent Distress, Chronically ill, Thin HEENT: Moist Mucous Membranes Respiratory: Lungs Clear, Normal Breath Sounds, No Accessory Muscle Use, No Respiratory Distress Cardiovascular: Regular Rate, Rhythm, No Murmur Gastrointestinal: soft; No distended, No guarding, No rebound; tenderness (Around fistula), other (Ostomy bag covering fistula) Assessment/Plan Assessment/Plan Assessment/Plan Enterocutaneous Fistula Weakness ELLI Fistula output was 55 mL; over probably previous 12 hour shift and 30 mL so far today. I talked to pt regarding fistulas and went over Low-output fistula vs High-output fistula. The delineation is at 200ml per day; below is low output and what she has is most likely a low-output fistula. About 30-40% of these will close spontaneously in a few months. I think she should continue eating, we will continue monitoring output and see if it can close on its own. If there is not good enough improvement then at some point will discuss need for strict NPO and TPN. Either way I talked to her about nutrition and how this will need to be optimized before we attempt anything surgical. I also told her we would stop her Lovenox (for DVT prophylaxis) because she may be bleeding, based on her fistula output and as long as she walks she doesn't need the Lovenox. Pt encouraged to ambulate (a lot in her room) and work with PT. Supervisory-Addendum Brief Verification & Attestation Participated in pt care: history, MDM, physical Personally performed: exam, history, MDM, supervision of care Care discussed with: Medical Student Procedures: n/a Verification and Attestation of Medical Student E/M Service A medical student performed and documented this service. I then reviewed and verified all information documented by the medical student and made modifications to such information, when appropriate. I personally performed a physical exam, medical decision making and then discussed any differences between the notes and made revisions as necessary to create one note. Chris London , 11/21/21 , 14:01 LUZMA KLINE Nov 21, 2021 11:23 CHRIS LONDON DO Nov 21, 2021 14:01
[2021-11-21 17:04] VITALS: BP 113/67
[2021-11-21 19:45] VITALS: BP 105/59
--- NOTE | 2021-11-22 06:01 | PM&R Progress Note ---
Subjective HPI/CC On Admission Date Seen by Provider: Nov 22, 2021 Time Seen by Provider: 09:00 Subjective/Events-last exam 11/22/2021: Pt is doing really well Albumin of 2.3 Blood is coming out of the ostomy drainage site Overall doing well Weight is 108 lbs 11/21/2021: Doing well No major concerns Dr Nieves did evaluate the fistula No cough of hypoxia 11/20/2021: Doing well Eating better today after emesis last night Compazine was helpful No pain reported No dyspnea 11/19/2021: Pt is doing well No oxygen required Dietary consult for poor nutrition White count is 3 Hemoglobin is 8.2 Review of Systems General: Fatigue, Malaise Objective Exam Vital Signs Vital Signs Date Time Temp Pulse Resp B/P (MAP) Pulse Ox O2 Delivery O2 Flow Rate FiO2 11/22/21 20:24 36.2 90 20 123/79 (94) 99 Room Air Capillary Refill : General Appearance: No Apparent Distress, WD/WN, Chronically ill, Thin HEENT: PERRL/EOMI, Normal ENT Inspection, Pharynx Normal Neck: Full Range of Motion, Normal Inspection, Non Tender, Supple, Carotid Bruit Respiratory: Chest Non Tender, Lungs Clear, Normal Breath Sounds, No Accessory Muscle Use, No Respiratory Distress Cardiovascular: Regular Rate, Rhythm, No Edema, No Gallop, No JVD, No Murmur, Normal Peripheral Pulses Gastrointestinal: Normal Bowel Sounds, No Organomegaly, No Pulsatile Mass, Non Tender, Soft Back: Normal Inspection, No CVA Tenderness, No Vertebral Tenderness Extremity: Normal Capillary Refill, Normal Inspection, Normal Range of Motion, Non Tender, No Calf Tenderness, No Pedal Edema Neurologic/Psychiatric: Alert, Oriented x3, 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, book canvasser II-XII Norm as Tested, Abnormal Gait, Depressed Affect, Motor Weakness (generalized) Skin: Normal Color, Warm/Dry Lymphatic: No Adenopathy Results/Procedures Lab Laboratory Tests 11/22/21 06:23 Patient resulted labs reviewed. FIM Transfers Therapy Code Descriptions/Definitions Functional [place] Measure: 0=Not Assessed/NA 4=Minimal Assistance 1=Total Assistance 5=Supervision or Setup 2=Maximal Assistance 6=Modified [place] 3=Moderate Assistance 7=Complete IndependenceSCALE: Activities may be completed with or without assistive devices. 3-Etfilvvcxx-pfpurkr completes the activity by him/herself with no assistance from a helper. 5-Set-up or Clean-up Assistance-helper sets up or cleans up; patient completes activity. [place] assists only prior to or following the activity. 4-Supervision or Touching Assistance-helper provides verbal cues and/or touching/steadying and/or contact guard assistance as patient completes activity. Assistance may be provided throughout the activity or intermittently. 3-Partial/Moderate Assistance-helper does LESS THAN HALF the effort. [place] lifts, holds or supports trunk or limbs, but provides less than half the effort. 2-Substantial/Maximal Assistance-helper does MORE THAN HALF the effort. [place] lifts or holds trunk or limbs and provides more than half the effort. 3-Blvplbmzy-jwznrs does ALL the effort. Patient does none of the effort to complete the activity. Or, the assistance of 2 or more helpers is required for the patient to complete the activity. If activity was not attempted, code reason: 7-Patient Refused. 9-Not Applicable-not attempted and the patient did not perform the activity before the current illness, exacerbation or injury. 10-Not Attempted due to Environmental Limitations-(lack of equipment, weather restraints, etc.). 88-Not Attempted due to Medical Conditions or Safety Concerns. Roll Left to Right (QC): 6 Sit to Lying (QC): 6 Sit to Stand (QC): 3 Chair/Rii-mb-Boyci Xfer(QC): 4 Car Transfer (QC): 4 Gait Training Does the Patient Walk?: Yes Distance: 10' Walk 10 feet (QC): 4 Walk 50 ft with 2 Turns(QC): 4 Walk 150 ft (QC): 88 Walking 10ft/uneven surface-QC: 10 Gait Persons Needed: 1 Gait Assistive Device: FWW Wheelchair Training Does the Pt Use a Wheelchair?: No Wheel 50 ft with 2 turns (QC): 9 Wheel 150 ft (QC): 9 Stair Training #of Steps: 1 1 Step (curb) (QC): 4 4 Steps (QC): 88 12 Steps (QC): 88 Balance Picking up an Object (QC): 88 ADL-Treatment Eating (QC): 5 Oral Hygiene (QC): 5 Shower/Bathe Self (QC): 4 Upper Body Dressing (QC): 5 Lower Body Dressing (QC): 4 On/Off Footwear (QC): 5 Toileting Hygiene (QC): 4 Toilet Transfer (QC): 3 Assessment/Plan Assessment and Plan Assess & Plan/Chief Complaint Assessment: Myopathy Malnutrition prealbumin 11 COVID infection with vaccination and 1 booster -Central line maintained -No oxygen required at this time -Currently on isolation for 20 days S/p ileostomy reversal with fistula and abscess October 2021 Dr Nieves -General surgery consulted again for possible drain removal today, 11/18/21 -Drain removed 11/18/21 after placed from [facility] IR 10/14 -Levofloxacin last day CHF -Echo EF 20-25% -Lasix and spironolactone and Entresto Type II [place] -Cardiology following, appreciate their recs -Telemetry DC Afib -Lovenox HTN -Well controlled currently Diabetes -SSI CKD3a -BUN/Cr wnl Recent hospitalization at [place] 10/20-11/11 following stay at [facility] 10/14 for pelvic abscess drainage. Diet: Regular DVT prophylaxis: Lovenox and SCDs 11/19/2021: Dietary consult appreciated Continue therapy 11/20/2021: Monitor N/V IS PT OT 11/21/2021: Monitor nutrition Supportive care 11/22/2021: Increase nutrition (1) Acute heart failure with reduced ejection fraction and diastolic dysfunction Assessment & Plan: Symptomatically improved. She is on carvedilol, Entresto and spironolactone. (2) Cardiomyopathy Assessment & Plan: Her most recent previous echocardiogram from 2020 showed mild left ventricular systolic dysfunction. Now she has severe left ventricular systolic dysfunction. She may need an ischemic evaluation once she recovers from her COVID. We may also want to consider a LifeVest prior to discharge. (3) Primary hypertension Assessment & Plan: Blood pressure is reasonably controlled with the present combination of medications. If anything, at times she is running on the low side. (4) Mixed hyperlipidemia Assessment & Plan: It appears as though she may have been on both atorvastatin and fenofibrate at home. I will resume the atorvastatin. I will hold off on restarting fenofibrate due to her acute debility with potentially increased risk for medication interactions between the atorvastatin and fenofibrate. LORENZO MIMS DO Nov 22, 2021 06:01
[2021-11-22 06:33] LABS: BASOPHILS % (AUTO) 1 % (0-10); EOSINOPHILS # (AUTO) 0.2 10^3/uL (0.0-0.3); EOSINOPHILS % (AUTO) 7 % (0-10); HEMATOCRIT 28 % (35-52); HEMOGLOBIN 8.7 g/dL (11.5-16.0); LYMPHOCYTES # (AUTO) 1.1 10^3/uL (1.0-4.0); LYMPHOCYTES % (AUTO) 39 % (12-44); MEAN CORPUSCULAR HEMOGLOBIN 29 pg (25-34); MEAN CORPUSCULAR HGB CONC 31 g/dL (32-36); MEAN CORPUSCULAR VOLUME 91 fL (80-99); MEAN PLATELET VOLUME 10.9 fL (9.0-12.2); MONOCYTES # (AUTO) 0.3 10^3/uL (0.0-1.0); MONOCYTES % (AUTO) 10 % (0-12); NEUTROPHILS # (AUTO) 1.2 10^3/uL (1.8-7.8); NEUTROPHILS % (AUTO) 43 % (42-75); PLATELET COUNT 180 10^3/uL (130-400); WHITE BLOOD COUNT 2.8 10^3/uL (4.3-11.0)
[2021-11-22 06:52] LABS: ALBUMIN 2.3 GM/DL (3.2-4.5); POTASSIUM 4.1 MMOL/L (3.6-5.0)
[2021-11-22 06:54] LABS: CALCIUM 6.9 MG/DL (8.5-10.1)
[2021-11-22 06:55] LABS: TOTAL PROTEIN 5.3 GM/DL (6.4-8.2)
[2021-11-22 06:57] LABS: BILIRUBIN,TOTAL 0.4 MG/DL (0.1-1.0)
[2021-11-22 06:58] LABS: CREATININE SERUM 0.85 MG/DL (0.60-1.30)
--- NOTE | 2021-11-22 07:23 | Progress Note - Surgery ---
LUZMA KLINE 11/22/21 0723: Subjective Date Seen by a Provider: Nov 22, 2021 Time Seen by a Provider: 06:48 Subjective/Events-last exam Ms. Garcia is being followed for a drain that was placed in her ventral abdomen. It was pulled 4 days ago. 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 Output of the fistula has been monitored 60 mL of output yesterday. She endorses minor pain around the site of the fistula but has no other complaints. She says her breathing is okay and she continues to work with PT. Review of Systems General: No Chills, No Fatigue HEENT: No Head Aches, No Visual Changes Pulmonary: No Dyspnea, No Cough Cardiovascular: No: Chest Pain, Palpitations Gastrointestinal: Abdominal Pain; No: Nausea, Vomiting Neurological: No: Weakness, Confusion Objective Exam Vital Signs Date Time Temp Pulse Resp B/P (MAP) Pulse Ox O2 Delivery O2 Flow Rate FiO2 11/21/21 21:00 Room Air 11/21/21 19:45 36.6 92 18 105/59 (74) 100 Room Air 11/21/21 17:04 93 113/67 (82) 11/21/21 09:48 Room Air 11/21/21 08:44 93 127/80 (96) I & O 11/22/21 06:59 Intake Total 1350 ml Output Total 65 ml Balance 1285 ml Capillary Refill : General Appearance: No Apparent Distress, Chronically ill, Thin HEENT: PERRL/EOMI, Moist Mucous Membranes Neck: Non Tender, Supple Respiratory: Chest Non Tender, Lungs Clear, Normal Breath Sounds, No Accessory Muscle Use, No Respiratory Distress Cardiovascular: Regular Rate, Rhythm, No Edema, Normal Peripheral Pulses Peripheral Pulses: 2+ Radial Pulses (R), 2+ Radial Pulses (L) Gastrointestinal: soft; No distended, No guarding, No rebound; tenderness (Around fistula), other (Ostomy bag covering fistula) Extremity: Non Tender, No Pedal Edema Neurologic/Psychiatric: Alert, Oriented x3, 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 Skin: Normal Color, Warm/Dry Results Lab Laboratory Tests 11/21/21 11:16: Glucometer 147H 11/21/21 15:43: Glucometer 116H 11/21/21 20:18: Glucometer 177H 11/22/21 06:23: White Blood Count 2.8L, Red Blood Count 3.04L, Hemoglobin 8.7L, Hematocrit 28L, Mean Corpuscular Volume 91, Mean Corpuscular Hemoglobin 29, Mean Corpuscular Hemoglobin Concent 31L, Red Cell Distribution Width 16.9H, Platelet Count 180, Mean Platelet Volume 10.9, Immature Granulocyte % (Auto) 0, Neutrophils (%) (Auto) 43, Lymphocytes (%) (Auto) 39, Monocytes (%) (Auto) 10, Eosinophils (%) (Auto) 7, Basophils (%) (Auto) 1, Neutrophils # (Auto) 1.2L, Lymphocytes # (Auto) 1.1, Monocytes # (Auto) 0.3, Eosinophils # (Auto) 0.2, Basophils # (Auto) 0.0, Immature Granulocyte # (Auto) 0.0, Sodium Level 138, Potassium Level 4.1, Chloride Level 112H, Carbon Dioxide Level 19L, Anion Gap 7, Blood Urea Nitrogen 11, Creatinine 0.85, Estimat Glomerular Filtration Rate 71, BUN/Creatinine Ratio 13, Glucose Level 84, Calcium Level 6.9L, Corrected Calcium 8.3L, Total Bilirubin 0.4, Aspartate Amino Transf (AST/SGOT) 29, Alanine Aminotransferase (ALT/SGPT) 20, Alkaline Phosphatase 81, Total Protein 5.3L, Albumin 2.3L Assessment/Plan Assessment/Plan Assessment/Plan Enterocutaneous Fistula Weakness COVID Removed the drain 4 days ago will monitor output. Monitor fistula output. Yesterday was 60 mL. Likely a low-output fistula. At some point will discuss need for strict NPO and TPN depending on continued output. Pt encouraged to ambulate and work with PT. CHRIS LONDON DO 11/22/21 1456: Subjective Time Seen by a Provider: 12:33 Subjective/Events-last exam Pt seen and examined, no new complaints Review of Systems General: No Chills HEENT: No Head Aches, No Visual Changes Pulmonary: No Dyspnea, No Cough Cardiovascular: No: Chest Pain, Palpitations Gastrointestinal: Abdominal Pain; No: Nausea, Vomiting Objective Exam General Appearance: No Apparent Distress, Chronically ill, Thin HEENT: Moist Mucous Membranes Respiratory: Lungs Clear, Normal Breath Sounds, No Accessory Muscle Use, No Respiratory Distress Cardiovascular: Regular Rate, Rhythm, No Murmur Gastrointestinal: soft; No distended, No guarding, No rebound; tenderness (Around fistula), other (Ostomy bag covering fistula) Assessment/Plan Assessment/Plan Assessment/Plan Enterocutaneous Fistula Weakness COVID Malnutrition Removed the drain 4 days ago will monitor fistula output. Yesterday was 60 mL. Likely a low-output fistula. Will monitor and see if this continues to decrease on its own, still may need to discuss NPO and TPN. Will add protein shakes TID to help with nutrition Pt encouraged to ambulate and work with PT Supervisory-Addendum Brief Verification & Attestation Participated in pt care: history, MDM, physical Personally performed: exam, history, MDM, supervision of care Care discussed with: Medical Student Procedures: n/a Verification and Attestation of Medical Student E/M Service A medical student performed and documented this service. I then reviewed and verified all information documented by the medical student and made modifications to such information, when appropriate. I personally performed a physical exam, medical decision making and then discussed any differences between the notes and made revisions as necessary to create one note. Chris London , 11/22/21 , 14:56 LUZMA KLINE Nov 22, 2021 07:23 CHRIS LONDON DO Nov 22, 2021 14:56
[2021-11-22 07:53] VITALS: BP 116/75
[2021-11-22] MEDS: inSUlin ASPART (NovoLOG) 1 UNIT/0.01 ML (CHARGE PER UNIT) SC SCH ×4 (07:59→20:31)
[2021-11-22] MEDS: CATHETER FLUSH 10 ML SYR IVP SCH ×3 (07:59→20:38)
[2021-11-22] MEDS: KCL 20 MEQ TAB (K-DUR) PO SCH (07:59)
--- NOTE | 2021-11-22 08:31 | Occupational Ther Daily Note ---
OT Current Status-Daily Note Subjective Pt alert, sitting in recliner. Pt agrees to therapy. No c/o pain, only fatigue. Mental Status/Objective Patient Orientation: Person, Place, Time, Situation ADL-Treatment Pt takes increased time to complete all tasks due to low stamina. Pt agrees to sponge bath. Pt ambulates using FWW to bathroom with SBA. Independent with toilet transfer using FWW and grabbars. Pt able to manipulate clothing, cleanse after voiding and manages colostomy by self. Sitting at sink, pt complete sponge bath by self. Pt soaks dentures at night. Pt able to complete dressing by self after set up. Independent with eating. After session, pt lying in bed with call light/phone in reach. All needs met in room. Therapy Code Descriptions/Definitions Functional [place] Measure: 0=Not Assessed/NA 4=Minimal Assistance 1=Total Assistance 5=Supervision or Setup 2=Maximal Assistance 6=Modified [place] 3=Moderate Assistance 7=Complete IndependenceSCALE: Activities may be completed with or without assistive devices. 5-Rtdiketeuo-njgjicb completes the activity by him/herself with no assistance from a helper. 5-Set-up or Clean-up Assistance-helper sets up or cleans up; patient completes activity. [place] assists only prior to or following the activity. 4-Supervision or Touching Assistance-helper provides verbal cues and/or touching/steadying and/or contact guard assistance as patient completes activity. Assistance may be provided throughout the activity or intermittently. 3-Partial/Moderate Assistance-helper does LESS THAN HALF the effort. [place] lifts, holds or supports trunk or limbs, but provides less than half the effort. 2-Substantial/Maximal Assistance-helper does MORE THAN HALF the effort. [place] lifts or holds trunk or limbs and provides more than half the effort. 8-Cujwibbra-ubchpm does ALL the effort. Patient does none of the effort to complete the activity. Or, the assistance of 2 or more helpers is required for the patient to complete the activity. If activity was not attempted, code reason: 7-Patient Refused. 9-Not Applicable-not attempted and the patient did not perform the activity before the current illness, exacerbation or injury. 10-Not Attempted due to Environmental Limitations-(lack of equipment, weather restraints, etc.). 88-Not Attempted due to Medical Conditions or Safety Concerns. Eating (QC): 6 Shower/Bathe Self (QC): 4 (Supervision for safety) Upper Body Dressing (QC): 5 Lower Body Dressing (QC): 4 Toileting Hygiene (QC): 5 (Set up to gather colostomy supplies.) Toilet Transfer (QC): 6 OT Short Term Goals Short Term Goals Time Frame: Nov 25, 2021 Eatin Oral hygiene: 6 Toileting hygiene: 6 Shower/bathe self: 5 Upper body dressin Lower body dressin Putting on/taking off footwear: 6 OT Senior Care Goals Senior Care Goals Time Frame: Dec 02, 2021 Eating (QC): 6 Oral Hygiene (QC): 6 Toileting Hygiene (QC): 6 Shower/Bathe Self (QC): 6 Upper Body Dressing (QC): 6 Lower Body Dressing (QC): 6 On/Off Footwear (QC): 6 1=Demonstrate adherence to instructed precautions during ADL tasks. 2=Patient will verbalize/demonstrate understanding of assistive devices/modifications for ADL. 3=Patient will improve strength/tolerance for activity to enable patient to perform ADL's. OT Education/Plan Problem List/Assessment Assessment: Decreased Activ Tolerance, Decreased UE Strength Discharge Recommendations Plan/Recommendations: Continue POC Treatment Plan/Plan of Care Patient would benefit from OT for education, treatment and training to promote independence in ADL's, mobility, safety and/or upper extremity function for ADL's. Plan of Care: ADL Retraining, Concurrent Therapy, Functional Mobility, Group Exercise/Act as Ind, UE Funct Exercise/Act Treatment Duration: Dec 02, 2021 Frequency: At least 5 of 7 days/Wk (IRF) Estimated Hrs Per Day: 1.5 hours per day (75-90 min/day ) Agreement: Yes Rehab Potential: Fair Time/GCodes Start Time: 07:15 Stop Time: 08:30 Total Time Billed (hr/min): 75 Billed Treatment Time 1 visit-ADL 5 (75 min) ELIZABETH BUTLER Nov 22, 2021 08:31
[2021-11-22] MEDS: SACUBITRIL/VALSARTAN 24/26 MG (ENTRESTO) TABLET PO SCH ×2 (09:52→20:37)
[2021-11-22] MEDS: CALCIUM CARBONATE 500 MG (TUMS) TAB.CHEW PO SCH ×3 (09:52→20:37)
[2021-11-22] MEDS: FUROSEMIDE 40 MG (LASIX) TAB PO SCH (09:52)
[2021-11-22] MEDS: VITAMIN D3 125 MCG (5,000 UNITS) CAPSULE PO SCH (09:52)
[2021-11-22] MEDS: ASPIRIN 81 MG CHEW (CHILDREN'S ASA) PO SCH (09:52)
[2021-11-22] MEDS: SPIRONOLACTONE 25 MG (ALDACTONE) TAB PO SCH (09:52)
[2021-11-22 09:56] VITALS: BP 119/77
[2021-11-22] MEDS: polyethylene glycoL POWDER 17 GM (MIRALAX) PACK PO SCH ×2 (10:06→19:35)
[2021-11-22] MEDS: DOCUSATE SODIUM 100 MG (COLACE) CAP PO SCH ×2 (10:06→19:35)
[2021-11-22] MEDS: SENNA W/DOCUSATE (SENOKOT S) TABLET PO SCH ×2 (10:07→19:35)
[2021-11-22] MEDS: SENNOSIDES 8.6 MG (SENOKOT) TAB PO SCH ×2 (10:07→19:35)
--- NOTE | 2021-11-22 11:05 | Physical Therapy Daily Note ---
PT Daily Note-Current Subjective Pt laying Supine in bed upon arrival. Pt agrees to PT. Pain Location: No Pain Reported Mental Status Patient Orientation: Person, Place, Time, Situation Transfers SCALE: Activities may be completed with or without assistive devices. 9-Omosrakmqg-xqqnxzn completes the activity by him/herself with no assistance from a helper. 5-Set-up or Clean-up Assistance-helper sets up or cleans up; patient completes activity. [place] assists only prior to or following the activity. 4-Supervision or Touching Assistance-helper provides verbal cues and/or touching/steadying and/or contact guard assistance as patient completes activity. Assistance may be provided throughout the activity or intermittently. 3-Partial/Moderate Assistance-helper does LESS THAN HALF the effort. [place] lifts, holds or supports trunk or limbs, but provides less than half the effort. 2-Substantial/Maximal Assistance-helper does MORE THAN HALF the effort. [place] lifts or holds trunk or limbs and provides more than half the effort. 0-Nudwodjkk-ighwuz does ALL the effort. Patient does none of the effort to complete the activity. Or, the assistance of 2 or more helpers is required for the patient to complete the activity. If activity was not attempted, code reason: 7-Patient Refused. 9-Not Applicable-not attempted and the patient did not perform the activity be fore the current illness, exacerbation or injury. 10-Not Attempted due to Environmental Limitations-(lack of equipment, weather restraints, etc.). 88-Not Attempted due to Medical Conditions or Safety Concerns. Sit to Stand (QC): 5 Toilet Transfer (QC): 5 Weight Bearing Full Weight Bearing Full Weight Bearing Gait Training Does the Patient Walk?: Yes Distance: 20' Walk 10 feet (QC): 5 Gait Assistive Device: FWW Exercises Seated Therapy Exercises: Ankle pumps, Long arc quads, Hip flexion, Hip abd/add, Glut set Seated Reps: 20 (2 sets) Treatments TF from Supine to EOB then standing and amb. to BR. Pt amb in room before sitting at EOB to rest. Pt completes Seated EX (2 sets) as pt & RETAIL DEPARTMENT RESET discuss AE and stairs or other hindrances for home that can be worked on. Pt returns to Supine in bed to rest at end of tx. All needs met, call light in hand. Assessment Current Status: Good Progress Pt is able to complete tasks given but fatigues, needing RB often. PT Short Term Goals Short Term Goals Time Frame: Nov 25, 2021 Roll Left & Right: 6 Sit to lyin Lying to sitting on side of be: 6 Sit to stand: 4 (CGA) Chair/aiy-ns-ssgtz transfer: 4 (SBA) Walk 10 feet: 4 (SBA) Walk 50 feet with two turns: 4 (SBA) PT Nursing Home Goals Nursing Home Goals PT Nursing Home Goals Time Frame: Dec 09, 2021 Roll Left & Right (QC): 6 Sit to Lying (QC): 6 Lying-Sitting on Side/Bed(QC): 6 Sit to Stand (QC): 6 Chair/Pto-uy-Bipel Xfer(QC): 6 Toilet Transfer (QC): 6 Car Transfer (QC): 6 Does the Patient Walk: Yes Walk 10 feet (QC): 6 Walk 50ft with 2 Turns (QC): 6 Walk 150 ft (QC): 6 Walking 10ft on Uneven Surface: 6 1 Step (curb) (QC): 6 4 Steps (QC): 6 12 Steps (QC): 88 Picking up an Object (QC): 6 Wheel 50 feet with 2 turns (QC: 9 Wheel 150 feet: 9 PT Plan Problem List Problem List: Activity Tolerance Treatment/Plan Treatment Plan: Continue Plan of Care Treatment Plan: Bed Mobility, Education, Functional Activity Maikel, Functional Strength, Group Therapy, Gait, Safety, Therapeutic Exercise, Transfers Treatment Duration: Dec 09, 2021 Frequency: At least 5 of 7 days/Wk (IRF) Estimated Hrs Per Day: 1.5 hours per day Patient and/or Family Agrees t: Yes Time/GCodes Time In: 1000 Time Out: 1100 Total Billed Treatment Time: 60 Total Billed Treatment 1, FA x2 (25m) & EX x2 (35m) ASHWIN MACKENZIE [facility]AIL [facility]PART[facility] RESET Nov 22, 2021 11:05
--- NOTE | 2021-11-22 11:14 | Speech Therapy Daily Note ---
Speech Daily Progress Note Subjective Date Seen by Provider: Nov 22, 2021 Time Seen by Provider: 09:00 The patient was lying in bed, sleeping upon entrance to her room. The patient greeted the clinician appropriately and was agreeable to participation in the cognitive linguistic treatment session. The patient reported fatigue, however, remained participatory throughout the therapy provided. Objective Orientation: The patient was independently oriented to month, day of the week, year, location, and city. The patient stated the date was the "" which was two days prior. The patient participated in immediate recall and delayed recall of five single words. The patient stated she is feeling "less confused" on this date. The patient was able to recall four of five single words immediately. The patient was able to recall five of five single words immediately with a category cue provided. The patient was able to recall five of five single words following a five minute delay. Assessment Assessment Current Status: Fair Progress Treatment Plan Continue Plan of Care Speech Short Term Goals Short Term Goals Short Term Goals 1. The patient will demonstrate 80% accuracy with memory exercises with mild clinician verbal and visual cueing. Time Frame-STG: One Week. Speech Assisted Goals Features Editor Goals 1. The patient will improve her cognitive linguistic skills for safe discharge to the least restrictive environment. Time Frame: Two Weeks. Speech-Plan Treatment Plan Speech Therapy Treatment Plan: Continue Plan of Care Treatment Duration: Dec 02, 2021 Frequency: 4 times per week (Four to five times per day.) Estimated Hrs Per Day: .5 hour per day Rehab Potential: Fair Safety Risks/Education Teaching Recipient: Patient Teaching Methods: Demonstration, Discussion Response to Teaching: Verbalize Understanding, Return Demonstration Education Topics Provided: Internal Memory Strategies Time Speech Therapy Time In: 09:00 Speech Therapy Time Out: 09:30 Total Billed Time: 30 Billed Treatment Time 1KEISHAELKIN Aby ELLISCHA[address] ST Nov 22, 2021 11:14
--- NOTE | 2021-11-22 14:25 | Physical Therapy Daily Note ---
PT Daily Note-Current Subjective Pt sitting in recliner upon arrival. Pt agrees to PT. Pain Location: No Pain Reported Mental Status Patient Orientation: Person, Place, Time, Situation Transfers SCALE: Activities may be completed with or without assistive devices. 4-Mwrfougkpf-vlccpjs completes the activity by him/herself with no assistance from a helper. 5-Set-up or Clean-up Assistance-helper sets up or cleans up; patient completes activity. [place] assists only prior to or following the activity. 4-Supervision or Touching Assistance-helper provides verbal cues and/or touching/steadying and/or contact guard assistance as patient completes activity. Assistance may be provided throughout the activity or intermittently. 3-Partial/Moderate Assistance-helper does LESS THAN HALF the effort. [place] lifts, holds or supports trunk or limbs, but provides less than half the effort. 2-Substantial/Maximal Assistance-helper does MORE THAN HALF the effort. [place] lifts or holds trunk or limbs and provides more than half the effort. 4-Ruijlnttl-kbwzlo does ALL the effort. Patient does none of the effort to complete the activity. Or, the assistance of 2 or more helpers is required for the patient to complete the activity. If activity was not attempted, code reason: 7-Patient Refused. 9-Not Applicable-not attempted and the patient did not perform the activity bef ore the current illness, exacerbation or injury. 10-Not Attempted due to Environmental Limitations-(lack of equipment, weather r estraints, etc.). 88-Not Attempted due to Medical Conditions or Safety Concerns. Sit to Stand (QC): 5 Weight Bearing Full Weight Bearing Full Weight Bearing Gait Training Does the Patient Walk?: Yes Distance: 40' Walk 10 feet (QC): 5 Gait Assistive Device: FWW Stair Training Stair Training: Handrails/: uses walker #of Steps: 4 1 Step (curb) (QC): 5 4 Steps (QC): 5 Stairs: Pattern: Step to Treatments TF to standing and uses BR before resting at EOB. Pt completes 4 steps using FWW over single step after instruction given by [employer]. Pt returns to EOB and lays Supine to rest at end of tx. All needs met, call light in hand. Assessment Current Status: Good Progress Pt needs RB as pt fatigues but able to complete steps w/little difficulty. PT Short Term Goals Short Term Goals Time Frame: Nov 25, 2021 Roll Left & Right: 6 Sit to lyin Lying to sitting on side of be: 6 Sit to stand: 4 (CGA) Chair/qrr-ul-cceyc transfer: 4 (SBA) Walk 10 feet: 4 (SBA) Walk 50 feet with two turns: 4 (SBA) PT Linderman Operator Goals Linderman Operator Goals PT Mcfp Goals Time Frame: Dec 09, 2021 Roll Left & Right (QC): 6 Sit to Lying (QC): 6 Lying-Sitting on Side/Bed(QC): 6 Sit to Stand (QC): 6 Chair/Lsx-fi-Hmayq Xfer(QC): 6 Toilet Transfer (QC): 6 Car Transfer (QC): 6 Does the Patient Walk: Yes Walk 10 feet (QC): 6 Walk 50ft with 2 Turns (QC): 6 Walk 150 ft (QC): 6 Walking 10ft on Uneven Surface: 6 1 Step (curb) (QC): 6 4 Steps (QC): 6 12 Steps (QC): 88 Picking up an Object (QC): 6 Wheel 50 feet with 2 turns (QC: 9 Wheel 150 feet: 9 PT Plan Problem List Problem List: Activity Tolerance Treatment/Plan Treatment Plan: Continue Plan of Care Treatment Plan: Bed Mobility, Education, Functional Activity Maikel, Functional Strength, Group Therapy, Gait, Safety, Therapeutic Exercise, Transfers Treatment Duration: Dec 09, 2021 Frequency: At least 5 of 7 days/Wk (IRF) Estimated Hrs Per Day: 1.5 hours per day Patient and/or Family Agrees t: Yes Safety Risks/Education Patient Education: Steps Teaching Recipient: Patient Teaching Methods: Demonstration, Discussion Response to Teaching: Verbalize Understanding, Return Demonstration Time/GCodes Time In: 1300 Time Out: 1330 Total Billed Treatment Time: 30 Total Billed Treatment 1, FA x2 (30m) ASHWIN MACKENZIE [employer] TR[employer]MER Nov 22, 2021 14:25
[2021-11-22 18:06] VITALS: BP 111/75
[2021-11-22 20:24] VITALS: BP 123/79
--- NOTE | 2021-11-23 06:05 | PM&R Progress Note ---
Subjective HPI/CC On Admission Date Seen by Provider: Nov 23, 2021 Time Seen by Provider: 08:00 Subjective/Events-last exam 11/23/2021: Doing ok Had nausea earlier Nutrition is a challenge Dr Kaufman will arrange for Lifevest 11/22/2021: Pt is doing really well Albumin of 2.3 Blood is coming out of the ostomy drainage site Overall doing well Weight is 108 lbs 11/21/2021: Doing well No major concerns Dr Nieves did evaluate the fistula No cough of hypoxia 11/20/2021: Doing well Eating better today after emesis last night Compazine was helpful No pain reported No dyspnea 11/19/2021: Pt is doing well No oxygen required Dietary consult for poor nutrition White count is 3 Hemoglobin is 8.2 Review of Systems General: Fatigue, Malaise Objective Exam Vital Signs Vital Signs Date Time Temp Pulse Resp B/P (MAP) Pulse Ox O2 Delivery O2 Flow Rate FiO2 11/23/21 20:26 36.8 85 16 115/77 (90) 99 Room Air Capillary Refill : General Appearance: No Apparent Distress, WD/WN, Chronically ill, Thin HEENT: PERRL/EOMI, Normal ENT Inspection, Pharynx Normal Neck: Full Range of Motion, Normal Inspection, Non Tender, Supple, Carotid Bruit Respiratory: Chest Non Tender, Lungs Clear, Normal Breath Sounds, No Accessory Muscle Use, No Respiratory Distress Cardiovascular: Regular Rate, Rhythm, No Edema, No Gallop, No JVD, No Murmur, Normal Peripheral Pulses Gastrointestinal: Normal Bowel Sounds, No Organomegaly, No Pulsatile Mass, Non Tender, Soft Back: Normal Inspection, No CVA Tenderness, No Vertebral Tenderness Extremity: Normal Capillary Refill, Normal Inspection, Normal Range of Motion, Non Tender, No Calf Tenderness, No Pedal Edema Neurologic/Psychiatric: Alert, Oriented x3, 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, evaluation manager II-XII Norm as Tested, Abnormal Gait, Depressed Affect, Motor Weakness (generalized) Skin: Normal Color, Warm/Dry Lymphatic: No Adenopathy Results/Procedures Lab Patient resulted labs reviewed. FIM Transfers Therapy Code Descriptions/Definitions Functional [place] Measure: 0=Not Assessed/NA 4=Minimal Assistance 1=Total Assistance 5=Supervision or Setup 2=Maximal Assistance 6=Modified [place] 3=Moderate Assistance 7=Complete IndependenceSCALE: Activities may be completed with or without assistive devices. 6-Jzssqvcygr-vweohrv completes the activity by him/herself with no assistance from a helper. 5-Set-up or Clean-up Assistance-helper sets up or cleans up; patient completes activity. [place] assists only prior to or following the activity. 4-Supervision or Touching Assistance-helper provides verbal cues and/or touching/steadying and/or contact guard assistance as patient completes activity. Assistance may be provided throughout the activity or intermittently. 3-Partial/Moderate Assistance-helper does LESS THAN HALF the effort. [place] lifts, holds or supports trunk or limbs, but provides less than half the effort. 2-Substantial/Maximal Assistance-helper does MORE THAN HALF the effort. [place] lifts or holds trunk or limbs and provides more than half the effort. 7-Nczelkieb-mnnakd does ALL the effort. Patient does none of the effort to complete the activity. Or, the assistance of 2 or more helpers is required for the patient to complete the activity. If activity was not attempted, code reason: 7-Patient Refused. 9-Not Applicable-not attempted and the patient did not perform the activity before the current illness, exacerbation or injury. 10-Not Attempted due to Environmental Limitations-(lack of equipment, weather restraints, etc.). 88-Not Attempted due to Medical Conditions or Safety Concerns. Roll Left to Right (QC): 6 Sit to Lying (QC): 6 Sit to Stand (QC): 5 Chair/Wwy-vy-Okirc Xfer(QC): 4 Car Transfer (QC): 4 Gait Training Does the Patient Walk?: Yes Distance: 40' Walk 10 feet (QC): 5 Walk 50 ft with 2 Turns(QC): 4 Walk 150 ft (QC): 88 Walking 10ft/uneven surface-QC: 10 Gait Persons Needed: 1 Gait Assistive Device: FWW Wheelchair Training Does the Pt Use a Wheelchair?: No Wheel 50 ft with 2 turns (QC): 9 Wheel 150 ft (QC): 9 Stair Training Stair Training: Handrails/: uses walker #of Steps: 4 1 Step (curb) (QC): 5 4 Steps (QC): 5 12 Steps (QC): 88 Stairs: Pattern: Step to Balance Picking up an Object (QC): 88 ADL-Treatment Eating (QC): 6 Oral Hygiene (QC): 5 Shower/Bathe Self (QC): 4 (Supervision for safety) Upper Body Dressing (QC): 5 Lower Body Dressing (QC): 4 On/Off Footwear (QC): 5 Toileting Hygiene (QC): 5 (Set up to gather colostomy supplies.) Toilet Transfer (QC): 6 Assessment/Plan Assessment and Plan Assess & Plan/Chief Complaint Assessment: Myopathy Malnutrition prealbumin 11 COVID infection with vaccination and 1 booster -Central line maintained -No oxygen required at this time -Currently on isolation for 20 days S/p ileostomy reversal with fistula and abscess October 2021 Dr Nieves -General surgery consulted again for possible drain removal today, 11/18/21 -Drain removed 11/18/21 after placed from [facility] 10/14 -Levofloxacin last day CHF -Echo EF 20-25% -Lasix and spironolactone and Entresto Type II MD -Cardiology following, appreciate their recs -Telemetry DC Afib -Lovenox HTN -Well controlled currently Diabetes -SSI CKD3a -BUN/Cr wnl Recent hospitalization at [facility] 10/20-11/11 following stay at [facility] 10/14 for pelvic abscess drainage. Diet: Regular DVT prophylaxis: Lovenox and SCDs 11/19/2021: Dietary consult appreciated Continue therapy 11/20/2021: Monitor N/V IS PT OT 11/21/2021: Monitor nutrition Supportive care 11/22/2021: Increase nutrition 11/23/2021: Life vest Monitor closely (1) Acute heart failure with reduced ejection fraction and diastolic dysfunction Assessment & Plan: Symptomatically improved. She is on carvedilol, Entresto and spironolactone. (2) Cardiomyopathy Assessment & Plan: Her most recent previous echocardiogram from 2020 showed mild left ventricular systolic dysfunction. Now she has severe left ventricular systolic dysfunction. She may need an ischemic evaluation once she recovers from her COVID. We may also want to consider a LifeVest prior to discharge. (3) Primary hypertension Assessment & Plan: Blood pressure is reasonably controlled with the present combination of medications. If anything, at times she is running on the low side. (4) Mixed hyperlipidemia Assessment & Plan: It appears as though she may have been on both atorvastatin and fenofibrate at home. I will resume the atorvastatin. I will hold off on restarting fenofibrate due to her acute debility with potentially increased risk for medication interactions between the atorvastatin and fenofibrate. LORENZO MIMS DO Nov 23, 2021 06:05
[2021-11-23] MEDS: inSUlin ASPART (NovoLOG) 1 UNIT/0.01 ML (CHARGE PER UNIT) SC SCH ×4 (06:18→20:53)
[2021-11-23] MEDS: CATHETER FLUSH 10 ML SYR IVP SCH ×3 (06:45→20:53)
[2021-11-23] MEDS: KCL 20 MEQ TAB (K-DUR) PO SCH ×2 (06:46→09:00)
[2021-11-23 07:04] VITALS: BP 123/80
--- NOTE | 2021-11-23 08:23 | Occupational Ther Daily Note ---
OT Current Status-Daily Note Subjective Pt alert, sitting in recliner. Pt agrees to therapy. No c/o pain, c/o nausea and nrsg notified. Mental Status/Objective Patient Orientation: Person, Place, Time, Situation Attachments: Colostomy/Ileostomy, IV ADL-Treatment Pt agrees to shower. Independent with eating. Pt ambulates to bathroom and transfers to toilet using FWW independently. Supplies gathered for pt then pt completed ostomy care by self. Clothing manipulation and hygiene after voiding independently. Pt used FWW to gather clothing off of bed and take to area to dress. Sitting on shower bench, pt able to complete shower by self, sitting 100 % of the time while showering. Independent with oral care. Independent with dressing. After session, pt lying in bed with call light/phone in reach. All needs met in room. Therapy Code Descriptions/Definitions Functional [place] Measure: 0=Not Assessed/NA 4=Minimal Assistance 1=Total Assistance 5=Supervision or Setup 2=Maximal Assistance 6=Modified [place] 3=Moderate Assistance 7=Complete IndependenceSCALE: Activities may be completed with or without assistive devices. 3-Vkvrvezdhm-vgwcodi completes the activity by him/herself with no assistance from a helper. 5-Set-up or Clean-up Assistance-helper sets up or cleans up; patient completes activity. [place] assists only prior to or following the activity. 4-Supervision or Touching Assistance-helper provides verbal cues and/or touching/steadying and/or contact guard assistance as patient completes activity. Assistance may be provided throughout the activity or intermittently. 3-Partial/Moderate Assistance-helper does LESS THAN HALF the effort. [place] lifts, holds or supports trunk or limbs, but provides less than half the effort. 2-Substantial/Maximal Assistance-helper does MORE THAN HALF the effort. [place] lifts or holds trunk or limbs and provides more than half the effort. 0-Mtuqvvgzj-ykxfsa does ALL the effort. Patient does none of the effort to complete the activity. Or, the assistance of 2 or more helpers is required for the patient to complete the activity. If activity was not attempted, code reason: 7-Patient Refused. 9-Not Applicable-not attempted and the patient did not perform the activity before the current illness, exacerbation or injury. 10-Not Attempted due to Environmental Limitations-(lack of equipment, weather restraints, etc.). 88-Not Attempted due to Medical Conditions or Safety Concerns. Eating (QC): 6 Oral Hygiene (QC): 6 Shower/Bathe Self (QC): 6 Upper Body Dressing (QC): 6 Lower Body Dressing (QC): 6 On/Off Footwear: 6 Toileting Hygiene (QC): 6 Toilet Transfer (QC): 6 Pt takes increased time to complete all tasks due to decreased stamina and requiring lengthy recovery breaks. OT Short Term Goals Short Term Goals Time Frame: Nov 25, 2021 Eatin Oral hygiene: 6 Toileting hygiene: 6 Shower/bathe self: 5 Upper body dressin Lower body dressin Putting on/taking off footwear: 6 OT Lumber Checker Goals Residential Goals Time Frame: Dec 02, 2021 Eating (QC): 6 (met) Oral Hygiene (QC): 6 (met) Toileting Hygiene (QC): 6 (met) Shower/Bathe Self (QC): 6 (met) Upper Body Dressing (QC): 6 (met) Lower Body Dressing (QC): 6 (met) On/Off Footwear (QC): 6 (met) 1=Demonstrate adherence to instructed precautions during ADL tasks. 2=Patient will verbalize/demonstrate understanding of assistive devices/modifications for ADL. 3=Patient will improve strength/tolerance for activity to enable patient to perform ADL's. OT Education/Plan Problem List/Assessment Assessment: Decreased Activ Tolerance, Impaired Self-Care Skills Discharge Recommendations Plan/Recommendations: Continue POC Treatment Plan/Plan of Care Patient would benefit from OT for education, treatment and training to promote independence in ADL's, mobility, safety and/or upper extremity function for ADL's. Plan of Care: ADL Retraining, Concurrent Therapy, Functional Mobility, Group Exercise/Act as Ind, UE Funct Exercise/Act Treatment Duration: Dec 02, 2021 Frequency: At least 5 of 7 days/Wk (IRF) Estimated Hrs Per Day: 1.5 hours per day (75-90 min/day ) Agreement: Yes Rehab Potential: Fair Time/GCodes Start Time: 07:15 Stop Time: 08:30 Total Time Billed (hr/min): 75 Billed Treatment Time 1 visit-ADL 5 (75 min) ELIZABETH BUTLER Nov 23, 2021 08:23
[2021-11-23] MEDS: ONDANSETRON 4 MG (ZOFRAN) ORAL DISSOLVE TAB PO PRN (08:25)
--- NOTE | 2021-11-23 08:43 | Progress Note - Surgery ---
LUZMA KLINE 11/23/21 0843: Subjective Date Seen by a Provider: Nov 23, 2021 Time Seen by a Provider: 08:35 Subjective/Events-last exam Ms. Garcia is being followed for a drain that was placed in her ventral abdomen. It was pulled 5 days ago. 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 Output of the fistula has been monitored 50 mL of output yesterday. She endorses minor pain around the site of the fistula. She showered this morning and reports nausea and vomiting after that. She says her breathing is okay and she continues to work with PT. Review of Systems General: No Chills, No Fatigue HEENT: No Head Aches, No Visual Changes Pulmonary: No Dyspnea, No Cough Cardiovascular: No: Chest Pain, Palpitations Gastrointestinal: Nausea, Vomiting, Abdominal Pain Neurological: No: Weakness, Confusion Objective Exam Vital Signs Date Time Temp Pulse Resp B/P (MAP) Pulse Ox O2 Delivery O2 Flow Rate FiO2 11/23/21 07:04 36.7 89 20 123/80 (94) 97 Room Air 11/22/21 21:00 Room Air 11/22/21 20:24 36.2 90 20 123/79 (94) 99 Room Air 11/22/21 18:06 92 111/75 (87) 11/22/21 09:56 92 119/77 (91) 11/22/21 09:00 Room Air I & O 11/23/21 07:00 Intake Total 962 ml Output Total 15 ml Balance 947 ml Capillary Refill : General Appearance: No Apparent Distress, Chronically ill, Thin HEENT: PERRL/EOMI, Moist Mucous Membranes Neck: Non Tender, Supple Respiratory: Chest Non Tender, Lungs Clear, Normal Breath Sounds, No Accessory Muscle Use, No Respiratory Distress Cardiovascular: Regular Rate, Rhythm, No Edema, Normal Peripheral Pulses Peripheral Pulses: 2+ Radial Pulses (R), 2+ Radial Pulses (L) Gastrointestinal: soft; No distended, No guarding, No rebound; tenderness (Around fistula), other (Ostomy bag covering fistula) Extremity: Non Tender, No Pedal Edema Neurologic/Psychiatric: Alert, Oriented x3, 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 Skin: Normal Color, Warm/Dry Results Lab Laboratory Tests 11/22/21 10:50: Glucometer 120H 11/22/21 15:41: Glucometer 115H 11/22/21 20:23: Glucometer 165H 11/23/21 05:44: Glucometer 87 Assessment/Plan Assessment/Plan Assessment/Plan Enterocutaneous Fistula Weakness COVID Malnutrition Removed the drain 5 days ago will monitor fistula output. Yesterday was 50 mL. Likely a low-output fistula. Will monitor and see if this continues to decrease on its own, still may need to discuss NPO and TPN. Will add protein shakes TID to help with nutrition Pt encouraged to ambulate and work with PT CHRIS LONDON DO 11/23/21 1456: Subjective Time Seen by a Provider: 11:42 Subjective/Events-last exam Pt seen and examined, states she had some vomiting this am. Review of Systems General: No Chills; Fatigue Pulmonary: No Dyspnea, No Cough Cardiovascular: No: Chest Pain, Palpitations Gastrointestinal: Nausea, Vomiting, Abdominal Pain Objective Exam General Appearance: No Apparent Distress, Chronically ill, Thin Respiratory: Lungs Clear, Normal Breath Sounds, No Accessory Muscle Use, No Respiratory Distress Cardiovascular: Regular Rate, Rhythm, No Murmur Gastrointestinal: soft; No distended, No guarding, No rebound; tenderness (Around fistula), other (Ostomy bag covering fistula) Neurologic/Psychiatric: Alert, Oriented x3 Assessment/Plan Assessment/Plan Assessment/Plan Enterocutaneous Fistula Weakness COVID Malnutrition Removed the drain 5 days ago will monitor fistula output. Yesterday was 50 mL. Likely a low-output fistula. Will monitor and see if this continues to decrease on its own, still may need to discuss NPO and TPN. Pt encouraged to take her protein shakes TID to help with nutrition, Pt encouraged to ambulate and work with PT Supervisory-Addendum Brief Verification & Attestation Participated in pt care: history, MDM, physical Personally performed: exam, history, MDM, supervision of care Care discussed with: Medical Student Procedures: n/a Verification and Attestation of Medical Student E/M Service A medical student performed and documented this service. I then reviewed and verified all information documented by the medical student and made modifications to such information, when appropriate. I personally performed a physical exam, medical decision making and then discussed any differences between the notes and made revisions as necessary to create one note. Chris London , 11/23/21 , 14:56 LUZMA KLINE Nov 23, 2021 08:43 CHRIS LONDON DO Nov 23, 2021 14:56
[2021-11-23] MEDS: FUROSEMIDE 40 MG (LASIX) TAB PO SCH (08:59)
[2021-11-23] MEDS: CALCIUM CARBONATE 500 MG (TUMS) TAB.CHEW PO SCH ×3 (08:59→20:52)
[2021-11-23] MEDS: VITAMIN D3 125 MCG (5,000 UNITS) CAPSULE PO SCH (08:59)
[2021-11-23] MEDS: SPIRONOLACTONE 25 MG (ALDACTONE) TAB PO SCH (08:59)
[2021-11-23] MEDS: SACUBITRIL/VALSARTAN 24/26 MG (ENTRESTO) TABLET PO SCH ×2 (08:59→20:52)
[2021-11-23] MEDS: ASPIRIN 81 MG CHEW (CHILDREN'S ASA) PO SCH (09:00)
[2021-11-23] MEDS: DOCUSATE SODIUM 100 MG (COLACE) CAP PO SCH ×2 (09:00→20:52)
[2021-11-23] MEDS: polyethylene glycoL POWDER 17 GM (MIRALAX) PACK PO SCH ×2 (09:01→20:52)
[2021-11-23] MEDS: SENNA W/DOCUSATE (SENOKOT S) TABLET PO SCH ×2 (09:01→20:52)
[2021-11-23] MEDS: SENNOSIDES 8.6 MG (SENOKOT) TAB PO SCH ×2 (09:01→20:53)
--- NOTE | 2021-11-23 11:06 | Physical Therapy Daily Note ---
PT Daily Note-Current Subjective Pt laying Supine in bed upon arrival. Pt agrees to PT. Pain Location: No Pain Reported Mental Status Patient Orientation: Person, Place, Time, Situation Transfers SCALE: Activities may be completed with or without assistive devices. 8-Faivnvuxje-uhqzvjk completes the activity by him/herself with no assistance from a helper. 5-Set-up or Clean-up Assistance-helper sets up or cleans up; patient completes activity. [place] assists only prior to or following the activity. 4-Supervision or Touching Assistance-helper provides verbal cues and/or touching/steadying and/or contact guard assistance as patient completes activity. Assistance may be provided throughout the activity or intermittently. 3-Partial/Moderate Assistance-helper does LESS THAN HALF the effort. [place] lifts, holds or supports trunk or limbs, but provides less than half the effort. 2-Substantial/Maximal Assistance-helper does MORE THAN HALF the effort. [place] lifts or holds trunk or limbs and provides more than half the effort. 5-Iwexitvtx-raofxu does ALL the effort. Patient does none of the effort to complete the activity. Or, the assistance of 2 or more helpers is required for the patient to complete the activity. If activity was not attempted, code reason: 7-Patient Refused. 9-Not Applicable-not attempted and the patient did not perform the activity be fore the current illness, exacerbation or injury. 10-Not Attempted due to Environmental Limitations-(lack of equipment, weather restraints, etc.). 88-Not Attempted due to Medical Conditions or Safety Concerns. Sit to Stand (QC): 6 Toilet Transfer (QC): 6 Weight Bearing Full Weight Bearing Full Weight Bearing Gait Training Does the Patient Walk?: Yes Distance: 20' Walk 10 feet (QC): 6 Gait Assistive Device: FWW Exercises Supine Ex: Ankle pumps, Quad Set, Glut sets, Heel Slides, Straight leg raise, Hip abd/add Supine Reps: 15 Seated Therapy Exercises: Ankle pumps, Long arc quads, Hip flexion, Hip abd/add, Glut set Seated Reps: 15 Treatments TF from Supine to EOB to standing. Pt amb. to BR. Pt is able to complete pericare then amb back to EOB to rest. Pt completes Seated then Supine EX. Pt rests in bed at end of tx with all needs met, call light in hand. Assessment Current Status: Good Progress Pt is able to complete tasks given but fatigues needing RB. PT Short Term Goals Short Term Goals Time Frame: Nov 25, 2021 Roll Left & Right: 6 Sit to lyin Lying to sitting on side of be: 6 Sit to stand: 4 (CGA) Chair/qpu-nw-dkpcc transfer: 4 (SBA) Walk 10 feet: 4 (SBA) Walk 50 feet with two turns: 4 (SBA) PT Fci Goals Mer[place] Go Round Attendant Goals PT [place] Attendant Goals Time Frame: Dec 09, 2021 Roll Left & Right (QC): 6 Sit to Lying (QC): 6 Lying-Sitting on Side/Bed(QC): 6 Sit to Stand (QC): 6 Chair/Mzk-zz-Osvbb Xfer(QC): 6 Toilet Transfer (QC): 6 Car Transfer (QC): 6 Does the Patient Walk: Yes Walk 10 feet (QC): 6 Walk 50ft with 2 Turns (QC): 6 Walk 150 ft (QC): 6 Walking 10ft on Uneven Surface: 6 1 Step (curb) (QC): 6 4 Steps (QC): 6 12 Steps (QC): 88 Picking up an Object (QC): 6 Wheel 50 feet with 2 turns (QC: 9 Wheel 150 feet: 9 PT Plan Problem List Problem List: Activity Tolerance Treatment/Plan Treatment Plan: Continue Plan of Care Treatment Plan: Bed Mobility, Education, Functional Activity Maikel, Functional Strength, Group Therapy, Gait, Safety, Therapeutic Exercise, Transfers Treatment Duration: Dec 09, 2021 Frequency: At least 5 of 7 days/Wk (IRF) Estimated Hrs Per Day: 1.5 hours per day Patient and/or Family Agrees t: Yes Time/GCodes Time In: 1000 Time Out: 1100 Total Billed Treatment Time: 60 Total Billed Treatment 1, FA x2 (30m) & EX x2 (30m) ASHWIN MACKENZIE FORK ASSEMBLER Nov 23, 2021 11:06
--- NOTE | 2021-11-23 11:20 | Speech Therapy Daily Note ---
Speech Daily Progress Note Subjective Date Seen by Provider: Nov 23, 2021 Time Seen by Provider: 09:00 The patient was lying in bed, awake and alert upon entrance to the patient's room. The patient greeted the clinician appropriately and was agreeable to participation in the cognitive linguistic treatment session. The patient does state she was recently feeling nauseated and received Zofran from the RN. Objective The patient completed multiple portions of the MoCA ([place] Cognitive Assessment) with the exception of "executive function" tasks due to the necessity of the patient re-positioning upright for completion of writing (the patient stated secondary to nausea, re-positioning would be difficult). The patient displayed a result of +24/25 displaying excellent cognitive function at this time. The patient received a one point deduction due to generative naming difficulty. The patient stated she has experienced difficulty with generative naming and would like to word towards improved word finding skills throughout therapy. Assessment Assessment Current Status: Good Progress Treatment Plan Continue Plan of Care Speech Short Term Goals Short Term Goals Short Term Goals 1. The patient will demonstrate 80% accuracy with memory exercises with mild clinician verbal and visual cueing. Time Frame-STG: One Week. Speech Slitter Cut Off Operator Goals Mcfp Goals 1. The patient will improve her cognitive linguistic skills for safe discharge to the least restrictive environment. Time Frame: Two Weeks. Speech-Plan Treatment Plan Speech Therapy Treatment Plan: Continue Plan of Care Treatment Duration: Dec 02, 2021 Frequency: 4 times per week (Four to five times per day.) Estimated Hrs Per Day: .5 hour per day Rehab Potential: Fair Safety Risks/Education Teaching Recipient: Patient Teaching Methods: Discussion Response to Teaching: Verbalize Understanding Education Topics Provided: Results of MoCA, Updated Goals for ST. Time Speech Therapy Time In: 09:00 Speech Therapy Time Out: 09:30 Total Billed Time: 30 Billed Treatment Time 1FÉLIX ELIZABETH Nov 23, 2021 11:20
--- NOTE | 2021-11-23 12:57 | Cardiology Progress Note ---
Progress Note-Cardiology Events since last exam Date Seen by Provider: Nov 23, 2021 Time Seen by Provider: 09:50 Events since last exam We are following her due to acute heart failure with reduced ejection fraction in the setting of COVID infection. She remains on the inpatient physical rehabilitation facility. This morning she continues to feel weak and tired. However, her breathing has improved. She denies chest discomfort, palpitations, syncope, or ankle edema. I did have a discussion with her about long-term treatment goals and she states that she would want everything done. Certain portions of this document may have been dictated utilizing voice recognition technology. Inherent to this technology, typographical and grammatical errors may exist. As much as I am diligent to identify and correct these mistakes, some errors may remain in the document. Vitals Last set of Vitals Signs Vital Signs 11/23/21 11/23/21 07:04 09:05 Temp 36.7 Pulse 89 Resp 20 B/P (MAP) 123/80 (94) Pulse Ox 97 O2 Delivery Room Air Exam Vital Signs Vital Signs Date Time Temp Pulse Resp B/P (MAP) Pulse Ox O2 Delivery O2 Flow Rate FiO2 11/23/21 09:05 Room Air 11/23/21 07:04 36.7 89 20 123/80 (94) 97 Physical Exam Due to the patient's COVID status, I spoke with the patient from the doorway. General: The patient is not on a ventilator. HENT: Normocephalic. Atraumatic. Skin: There is no pallor. Neurologic: Oriented x3. Cranial nerves III through XII grossly intact. Moving all 4 extremities. Psychiatric: Appears cooperative. Labs Laboratory Tests Test 11/22/21 20:23 11/23/21 05:44 11/23/21 10:58 11/23/21 15:41 Range/Units Glucometer 165 H 87 147 H 134 H 70-110 MG/DL Diagnosis/Problems Diagnosis/Problems (1) Acute heart failure with reduced ejection fraction and diastolic dysfunction Assessment & Plan: Symptomatically improved. She is on carvedilol, Entresto and spironolactone. At some point, she may need an ischemic evaluation but we will wait until she recovers from the COVID infection for pursuing this further. (2) Cardiomyopathy Assessment & Plan: Her most recent previous echocardiogram from 2020 showed mild left ventricular systolic dysfunction. Now she has severe left ventricular systolic dysfunction. She may need an ischemic evaluation once she recovers fro m her COVID. We will continue the present guideline directed medical therapy. I have ordered a LifeVest that will be fitted possibly tomorrow. (3) Primary hypertension Assessment & Plan: Blood pressure is reasonably controlled with the present combination of medications. If anything, at times she is running on the low side. (4) Mixed hyperlipidemia Assessment & Plan: It appears as though she may have been on both atorvastatin and fenofibrate at home. I resumed the atorvastatin. I will hold off on restarting fenofibrate due to her acute debility with potentially increased risk for medication interactions between the atorvastatin and fenofibrate. GABE COOPER JR, MD Nov 23, 2021 12:57
--- NOTE | 2021-11-23 15:20 | Physical Therapy Daily Note ---
PT Daily Note-Current Subjective Pt laying Supine in bed upon arrival. Pt agrees to PT. Mental Status Patient Orientation: Person, Place, Time, Situation Transfers SCALE: Activities may be completed with or without assistive devices. 0-Fewqerpiqi-eyzefbm completes the activity by him/herself with no assistance from a helper. 5-Set-up or Clean-up Assistance-helper sets up or cleans up; patient completes activity. [place] assists only prior to or following the activity. 4-Supervision or Touching Assistance-helper provides verbal cues and/or touching/steadying and/or contact guard assistance as patient completes activity. Assistance may be provided throughout the activity or intermittently. 3-Partial/Moderate Assistance-helper does LESS THAN HALF the effort. [place] lifts, holds or supports trunk or limbs, but provides less than half the effort. 2-Substantial/Maximal Assistance-helper does MORE THAN HALF the effort. [place] lifts or holds trunk or limbs and provides more than half the effort. 4-Tshhbsknl-wjvsdq does ALL the effort. Patient does none of the effort to complete the activity. Or, the assistance of 2 or more helpers is required for the patient to complete the activity. If activity was not attempted, code reason: 7-Patient Refused. 9-Not Applicable-not attempted and the patient did not perform the activity before the current illness, exacerbation or injury. 10-Not Attempted due to Environmental Limitations-(lack of equipment, weather restraints, etc.). 88-Not Attempted due to Medical Conditions or Safety Concerns. Sit to Stand (QC): 5 Toilet Transfer (QC): 5 Weight Bearing Full Weight Bearing Full Weight Bearing Gait Training Does the Patient Walk?: Yes Distance: 25' Walk 10 feet (QC): 5 Gait Assistive Device: FWW Exercises Supine Ex: Ankle pumps, Quad Set, Glut sets, Heel Slides, Hip abd/add Supine Reps: 15 Treatments TF to EOB then standing and uses BR. Pt returns to bed to rest. Pt completes EX then resting. All needs met, call light in hand. Assessment Current Status: Good Progress Pt needs occasional RB for fatigue. PT Short Term Goals Short Term Goals Time Frame: Nov 25, 2021 Roll Left & Right: 6 Sit to lyin Lying to sitting on side of be: 6 Sit to stand: 4 (CGA) Chair/uei-bl-xbbsp transfer: 4 (SBA) Walk 10 feet: 4 (SBA) Walk 50 feet with two turns: 4 (SBA) PT Custodial Goals Custodial Goals PT Custodial Goals Time Frame: Dec 09, 2021 Roll Left & Right (QC): 6 Sit to Lying (QC): 6 Lying-Sitting on Side/Bed(QC): 6 Sit to Stand (QC): 6 Chair/Pxr-yg-Wlpwj Xfer(QC): 6 Toilet Transfer (QC): 6 Car Transfer (QC): 6 Does the Patient Walk: Yes Walk 10 feet (QC): 6 Walk 50ft with 2 Turns (QC): 6 Walk 150 ft (QC): 6 Walking 10ft on Uneven Surface: 6 1 Step (curb) (QC): 6 4 Steps (QC): 6 12 Steps (QC): 88 Picking up an Object (QC): 6 Wheel 50 feet with 2 turns (QC: 9 Wheel 150 feet: 9 PT Plan Problem List Problem List: Activity Tolerance Treatment/Plan Treatment Plan: Continue Plan of Care Treatment Plan: Bed Mobility, Education, Functional Activity Maikel, Functional Strength, Group Therapy, Gait, Safety, Therapeutic Exercise, Transfers Treatment Duration: Dec 09, 2021 Frequency: At least 5 of 7 days/Wk (IRF) Estimated Hrs Per Day: 1.5 hours per day Patient and/or Family Agrees t: Yes Time/GCodes Time In: 1300 Time Out: 1330 Total Billed Treatment Time: 30 Total Billed Treatment 1, FA (15m) & EX (15m) ASHWIN MACKENZIE [employer] Nov 23, 2021 15:20
[2021-11-23 20:26] VITALS: BP 115/77
[2021-11-24] MEDS: CATHETER FLUSH 10 ML SYR IVP SCH ×3 (05:03→20:39)
[2021-11-24 05:24] LABS: POTASSIUM 4.6 MMOL/L (3.6-5.0)
[2021-11-24 05:25] LABS: CALCIUM 7.7 MG/DL (8.5-10.1)
[2021-11-24] MEDS: inSUlin ASPART (NovoLOG) 1 UNIT/0.01 ML (CHARGE PER UNIT) SC SCH ×4 (05:27→20:27)
[2021-11-24 05:29] LABS: CREATININE SERUM 0.88 MG/DL (0.60-1.30)
--- NOTE | 2021-11-24 06:24 | PM&R Progress Note ---
Subjective HPI/CC On Admission Date Seen by Provider: Nov 24, 2021 Time Seen by Provider: 09:00 Subjective/Events-last exam 11/24/2021: Doing well DC planned for Monday Still in isolation for the full 10 days due to ICU admit but not due to hypoxia No pain Improved diet Life vest will be fitted. 11/23/2021: Doing ok Had nausea earlier Nutrition is a challenge Dr Kaufman will arrange for Lifevest 11/22/2021: Pt is doing really well Albumin of 2.3 Blood is coming out of the ostomy drainage site Overall doing well Weight is 108 lbs 11/21/2021: Doing well No major concerns Dr Nieves did evaluate the fistula No cough of hypoxia 11/20/2021: Doing well Eating better today after emesis last night Compazine was helpful No pain reported No dyspnea 11/19/2021: Pt is doing well No oxygen required Dietary consult for poor nutrition White count is 3 Hemoglobin is 8.2 Review of Systems General: Fatigue, Malaise Objective Exam Vital Signs Vital Signs Date Time Temp Pulse Resp B/P (MAP) Pulse Ox O2 Delivery O2 Flow Rate FiO2 11/24/21 20:48 Room Air 11/24/21 19:25 36.8 93 18 128/79 (95) 98 Capillary Refill : General Appearance: No Apparent Distress, WD/WN, Chronically ill, Thin HEENT: PERRL/EOMI, Normal ENT Inspection, Pharynx Normal Neck: Full Range of Motion, Normal Inspection, Non Tender, Supple, Carotid Bruit Respiratory: Chest Non Tender, Lungs Clear, Normal Breath Sounds, No Accessory Muscle Use, No Respiratory Distress Cardiovascular: Regular Rate, Rhythm, No Edema, No Gallop, No JVD, No Murmur, Normal Peripheral Pulses Gastrointestinal: Normal Bowel Sounds, No Organomegaly, No Pulsatile Mass, Non Tender, Soft Back: Normal Inspection, No CVA Tenderness, No Vertebral Tenderness Extremity: Normal Capillary Refill, Normal Inspection, Normal Range of Motion, Non Tender, No Calf Tenderness, No Pedal Edema Neurologic/Psychiatric: Alert, Oriented x3, 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 FIM Transfers Therapy Code Descriptions/Definitions Functional [place] Measure: 0=Not Assessed/NA 4=Minimal Assistance 1=Total Assistance 5=Supervision or Setup 2=Maximal Assistance 6=Modified [place] 3=Moderate Assistance 7=Complete IndependenceSCALE: Activities may be completed with or without assistive devices. 0-Gdnflfdjeu-newwgxf completes the activity by him/herself with no assistance from a helper. 5-Set-up or Clean-up Assistance-helper sets up or cleans up; patient completes activity. [place] assists only prior to or following the activity. 4-Supervision or Touching Assistance-helper provides verbal cues and/or touching/steadying and/or contact guard assistance as patient completes activity. Assistance may be provided throughout the activity or intermittently. 3-Partial/Moderate Assistance-helper does LESS THAN HALF the effort. [place] lifts, holds or supports trunk or limbs, but provides less than half the effort. 2-Substantial/Maximal Assistance-helper does MORE THAN HALF the effort. [place] lifts or holds trunk or limbs and provides more than half the effort. 2-Yxwosbfpc-ougekz does ALL the effort. Patient does none of the effort to complete the activity. Or, the assistance of 2 or more helpers is required for the patient to complete the activity. If activity was not attempted, code reason: 7-Patient Refused. 9-Not Applicable-not attempted and the patient did not perform the activity before the current illness, exacerbation or injury. 10-Not Attempted due to Environmental Limitations-(lack of equipment, weather restraints, etc.). 88-Not Attempted due to Medical Conditions or Safety Concerns. Roll Left to Right (QC): 6 Sit to Lying (QC): 6 Sit to Stand (QC): 5 Chair/Ohl-rz-Cvvna Xfer(QC): 4 Car Transfer (QC): 4 Gait Training Does the Patient Walk?: Yes Distance: 25' Walk 10 feet (QC): 5 Walk 50 ft with 2 Turns(QC): 4 Walk 150 ft (QC): 88 Walking 10ft/uneven surface-QC: 10 Gait Persons Needed: 1 Gait Assistive Device: FWW Wheelchair Training Does the Pt Use a Wheelchair?: No Wheel 50 ft with 2 turns (QC): 9 Wheel 150 ft (QC): 9 Stair Training Stair Training: Handrails/: uses walker #of Steps: 4 1 Step (curb) (QC): 5 4 Steps (QC): 5 12 Steps (QC): 88 Stairs: Pattern: Step to Balance Picking up an Object (QC): 88 ADL-Treatment Eating (QC): 6 Oral Hygiene (QC): 6 Shower/Bathe Self (QC): 6 Upper Body Dressing (QC): 6 Lower Body Dressing (QC): 6 On/Off Footwear (QC): 6 Toileting Hygiene (QC): 6 Toilet Transfer (QC): 6 Assessment/Plan Assessment and Plan Assess & Plan/Chief Complaint Assessment: Myopathy Malnutrition prealbumin 11 COVID infection with vaccination and 1 booster -Central line maintained -No oxygen required at this time -Currently on isolation for 20 days S/p ileostomy reversal with fistula and abscess October 2021 Dr Nieves -General surgery consulted again for possible drain removal today, 11/18/21 -Drain removed 11/18/21 after placed from [facility] IR 10/14 -Levofloxacin last day CHF -Echo EF 20-25% -Lasix and spironolactone and Entresto Type II DE -Cardiology following, appreciate their recs -Telemetry DC Afib -Lovenox HTN -Well controlled currently Diabetes -SSI CKD3a -BUN/Cr wnl Recent hospitalization at [place] 10/20-11/11 following stay at [facility] 10/14 for pelvic abscess drainage. Diet: Regular DVT prophylaxis: Lovenox and SCDs 11/19/2021: Dietary consult appreciated Continue therapy 11/20/2021: Monitor N/V IS PT OT 11/21/2021: Monitor nutrition Supportive care 11/22/2021: Increase nutrition 11/23/2021: Life vest Monitor closely 11/24/2021: Life vest fitting DC Monday (1) Acute heart failure with reduced ejection fraction and diastolic dysfunction Assessment & Plan: Symptomatically improved. She is on carvedilol, Entresto and spironolactone. At some point, she may need an ischemic evaluation but we will wait until she recovers from the COVID infection for pursuing this further. (2) Cardiomyopathy Assessment & Plan: Her most recent previous echocardiogram from 2020 showed mild left ventricular systolic dysfunction. Now she has severe left ventricular systolic dysfunction. She may need an ischemic evaluation once she recovers from her COVID. We will continue the present guideline directed medical therapy. I have ordered a LifeVest that will be fitted possibly tomorrow. (3) Primary hypertension Assessment & Plan: Blood pressure is reasonably controlled with the present combination of medications. If anything, at times she is running on the low side. (4) Mixed hyperlipidemia Assessment & Plan: It appears as though she may have been on both atorvastatin and fenofibrate at home. I resumed the atorvastatin. I will hold off on restarting fenofibrate due to her acute debility with potentially increased risk for medication interactions between the atorvastatin and fenofibrate. LORENZO MIMS DO Nov 24, 2021 06:24
--- NOTE | 2021-11-24 07:29 | Progress Note - Surgery ---
LUZMA KLINE 11/24/21 0729: Subjective Date Seen by a Provider: Nov 24, 2021 Time Seen by a Provider: 07:25 Subjective/Events-last exam Ms. Garcia is being followed for a drain that was placed in her ventral abdomen. It was pulled 6 days ago. 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 She reports the bag was changed yesterday and there has been no drainage in the last 24 hours. She is working with PT. The plan is for her to go home tomorrow. Review of Systems General: No Chills, No Fatigue HEENT: No Head Aches, No Visual Changes Pulmonary: No Dyspnea, No Cough Cardiovascular: No: Chest Pain, Palpitations Gastrointestinal: Abdominal Pain; No: Nausea, Vomiting Objective Exam Vital Signs Date Time Temp Pulse Resp B/P (MAP) Pulse Ox O2 Delivery O2 Flow Rate FiO2 11/23/21 21:22 Room Air 11/23/21 20:26 36.8 85 16 115/77 (90) 99 Room Air 11/23/21 09:05 Room Air I & O 11/24/21 07:00 Intake Total 950 ml Output Total 0 ml Balance 950 ml Capillary Refill : General Appearance: No Apparent Distress, Chronically ill, Thin HEENT: PERRL/EOMI, Moist Mucous Membranes Neck: Non Tender, Supple Respiratory: Chest Non Tender, Lungs Clear, Normal Breath Sounds, No Accessory Muscle Use, No Respiratory Distress Cardiovascular: Regular Rate, Rhythm, No Edema, Normal Peripheral Pulses Peripheral Pulses: 2+ Radial Pulses (R), 2+ Radial Pulses (L) Gastrointestinal: soft; No distended, No guarding, No rebound; tenderness (Around fistula), other (Ostomy bag covering fistula) Extremity: Non Tender, No Pedal Edema Neurologic/Psychiatric: Alert, Oriented x3 Skin: Normal Color, Warm/Dry Results Lab Laboratory Tests 11/23/21 10:58: Glucometer 147H 11/23/21 15:41: Glucometer 134H 11/23/21 20:24: Glucometer 144H 11/24/21 05:00: Sodium Level 138, Potassium Level 4.6, Chloride Level 108H, Carbon Dioxide Level 19L, Anion Gap 11, Blood Urea Nitrogen 15, Creatinine 0.88, Estimat Glomerular Filtration Rate 68, BUN/Creatinine Ratio 17, Glucose Level 93, Calcium Level 7.7L Assessment/Plan Assessment/Plan Assessment/Plan Enterocutaneous Fistula Weakness COVID Malnutrition Removed the drain 6 days ago will monitor fistula output. Yesterday was 0 mL. Likely a low-output fistula. Will monitor and see if this continues to decrease on its own, still may need to discuss NPO and TPN. Pt encouraged to take her protein shakes TID to help with nutrition, Pt encouraged to ambulate and work with PT CHRIS LONDON DO 11/24/21 2348: Subjective Time Seen by a Provider: 17:37 Subjective/Events-last exam Pt seen and examined, no new complaints states she still has some nausea and can't eat everything. Nurse stated she ate 85% of calories yesterday, but today "won't even be close". Review of Systems General: No Chills; Fatigue Pulmonary: No Dyspnea, No Cough Cardiovascular: No: Chest Pain, Palpitations Gastrointestinal: Abdominal Pain; No: Nausea, Vomiting Objective Exam General Appearance: No Apparent Distress, Chronically ill, Thin Respiratory: Chest Non Tender, Lungs Clear, Normal Breath Sounds, No Accessory Muscle Use, No Respiratory Distress Cardiovascular: Regular Rate, Rhythm, No Murmur Gastrointestinal: soft; No distended, No guarding, No rebound; tenderness (Around fistula), other (Ostomy bag covering fistula) Assessment/Plan Assessment/Plan Assessment/Plan Enterocutaneous Fistula Weakness COVID Malnutrition Removed the drain 6 days ago will monitor fistula output. Yesterday was 0 mL. Likely a low-output fistula. Will monitor and see if this continues to decrease on its own, still may need to discuss NPO and TPN. Pt encouraged to take her protein shakes TID to help with nutrition, Pt encouraged to ambulate and work with PT Supervisory-Addendum Brief Verification & Attestation Participated in pt care: history, MDM, physical Personally performed: exam, history, MDM, supervision of care Care discussed with: Medical Student Procedures: n/a Verification and Attestation of Medical Student E/M Service A medical student performed and documented this service. I then reviewed and verified all information documented by the medical student and made modifications to such information, when appropriate. I personally performed a physical exam, medical decision making and then discussed any differences between the notes and made revisions as necessary to create one note. Chris London , 11/24/21 , 23:48 LUZMA KLINE Nov 24, 2021 07:29 CHRIS LONDON DO Nov 24, 2021 23:48
[2021-11-24 07:38] VITALS: BP 111/73
--- NOTE | 2021-11-24 07:58 | Occupational Ther Daily Note ---
OT Current Status-Daily Note Subjective Pt alert, sitting in recliner. Pt agrees to therapy. No c/o pain. Pt takes increased time to complete all tasks due to decreased stamina. Pt is able to complete more steps of tasks before recovery break is needed. Mental Status/Objective Patient Orientation: Person, Place, Time, Situation ADL-Treatment Pt independent with eating. Independent with toilet transfer and toileting using FWW and grabbars. Pt completed sponge bath sitting at sink, independently. Pt completed dressing independently sitting EOB. Oral care independently. Therapy Code Descriptions/Definitions Functional [place] Measure: 0=Not Assessed/NA 4=Minimal Assistance 1=Total Assistance 5=Supervision or Setup 2=Maximal Assistance 6=Modified [place] 3=Moderate Assistance 7=Complete IndependenceSCALE: Activities may be completed with or without assistive devices. 5-Bnlurzlljd-nsfyeiu completes the activity by him/herself with no assistance from a helper. 5-Set-up or Clean-up Assistance-helper sets up or cleans up; patient completes activity. [place] assists only prior to or following the activity. 4-Supervision or Touching Assistance-helper provides verbal cues and/or touching/steadying and/or contact guard assistance as patient completes activity. Assistance may be provided throughout the activity or intermittently. 3-Partial/Moderate Assistance-helper does LESS THAN HALF the effort. [place] lifts, holds or supports trunk or limbs, but provides less than half the effort. 2-Substantial/Maximal Assistance-helper does MORE THAN HALF the effort. [place] lifts or holds trunk or limbs and provides more than half the effort. 3-[place]yv-mdnptb does ALL the effort. Patient does none of the effort to complete the activity. Or, the assistance of 2 or more helpers is required for the patient to complete the activity. If activity was not attempted, code reason: 7-Patient Refused. 9-Not Applicable-not attempted and the patient did not perform the activity before the current illness, exacerbation or injury. 10-Not Attempted due to Environmental Limitations-(lack of equipment, weather restraints, etc.). 88-Not Attempted due to Medical Conditions or Safety Concerns. Eating (QC): 6 Oral Hygiene (QC): 6 Shower/Bathe Self (QC): 6 Upper Body Dressing (QC): 6 Lower Body Dressing (QC): 6 On/Off Footwear: 6 Toileting Hygiene (QC): 6 Toilet Transfer (QC): 6 Other Treatment Pt given HEP for B UE theraband exercises. Skilled instruction for correct technique during exercises. Pt fatigued and did not demonstrate understanding, did verbalize understanding. Pt given energy conservation handout and verbalized understanding. After session, pt sitting in recliner with call light/phone in reach. All needs met in room Education OT Patient Education: Energy conservation, Exercise program Teaching Recipient: Patient Teaching Methods: Demonstration, Handout, Discussion Response to Teaching: Verbalize Understanding OT Short Term Goals Short Term Goals Time Frame: Nov 25, 2021 Eatin Oral hygiene: 6 Toileting hygiene: 6 Shower/bathe self: 5 Upper body dressin Lower body dressin Putting on/taking off footwear: 6 OT Director Writing Goals [facility] Goals Time Frame: Dec 02, 2021 Eating (QC): 6 (met) Oral Hygiene (QC): 6 (met) Toileting Hygiene (QC): 6 (met) Shower/Bathe Self (QC): 6 (met) Upper Body Dressing (QC): 6 (met) Lower Body Dressing (QC): 6 (met) On/Off Footwear (QC): 6 (met) 1=Demonstrate adherence to instructed precautions during ADL tasks. 2=Patient will verbalize/demonstrate understanding of assistive devices/mod ifications for ADL. 3=Patient will improve strength/tolerance for activity to enable patient to perform ADL's. OT Education/Plan Problem List/Assessment Assessment: Decreased Activ Tolerance Discharge Recommendations Plan/Recommendations: Continue POC Treatment Plan/Plan of Care Patient would benefit from OT for education, treatment and training to promote independence in ADL's, mobility, safety and/or upper extremity function for ADL's. Plan of Care: ADL Retraining, Concurrent Therapy, Functional Mobility, Group Exercise/Act as Ind, UE Funct Exercise/Act Treatment Duration: Dec 02, 2021 Frequency: At least 5 of 7 days/Wk (IRF) Estimated Hrs Per Day: 1.5 hours per day (75-90 min/day ) Agreement: Yes Rehab Potential: Fair Time/GCodes Start Time: 07:15 Stop Time: 08:30 Total Time Billed (hr/min): 75 Billed Treatment Time 1 visit-ADL 4 (60 min) FA 1 (15 min) ELIZABETH BUTLER Nov 24, 2021 07:58
[2021-11-24] MEDS: FUROSEMIDE 40 MG (LASIX) TAB PO SCH (09:21)
[2021-11-24] MEDS: SACUBITRIL/VALSARTAN 24/26 MG (ENTRESTO) TABLET PO SCH ×2 (09:21→20:38)
[2021-11-24] MEDS: VITAMIN D3 125 MCG (5,000 UNITS) CAPSULE PO SCH (09:21)
[2021-11-24] MEDS: ASPIRIN 81 MG CHEW (CHILDREN'S ASA) PO SCH (09:21)
[2021-11-24] MEDS: CALCIUM CARBONATE 500 MG (TUMS) TAB.CHEW PO SCH ×3 (09:21→20:38)
[2021-11-24] MEDS: SPIRONOLACTONE 25 MG (ALDACTONE) TAB PO SCH (09:22)
--- NOTE | 2021-11-24 09:37 | Speech Therapy Daily Note ---
Speech Daily Progress Note Subjective Date Seen by Provider: Nov 24, 2021 Time Seen by Provider: 09:00 The patient was lying in her bed, awake and alert upon entrance to her room by the clinician. The patient greeted the clinician appropriately and was agreeable to participation in the cognitive linguistic treatment session. Objective Orientation: The patient remains 100% independently oriented to self, location, month, day of the week, date, and year. The patient participated in word finding exercises with 100% accuracy. The patient was provided a letter and a category. The patient was asked to find a word which fits into the category and begins with the letter. The patient did not require verbal cueing for the accuracy displayed. Assessment Assessment Current Status: Good Progress Treatment Plan Continue Plan of Care Speech Short Term Goals Short Term Goals Short Term Goals 1. The patient will demonstrate 80% accuracy with memory exercises with mild clinician verbal and visual cueing. Time Frame-STG: One Week. Speech Long-Term Goals Long-Term Goals 1. The patient will improve her cognitive linguistic skills for safe discharge to the least restrictive environment. Time Frame: Two Weeks. Speech-Plan Treatment Plan Speech Therapy Treatment Plan: Continue Plan of Care Treatment Duration: Dec 02, 2021 Frequency: 4 times per week (Four to five times per day.) Estimated Hrs Per Day: .5 hour per day Rehab Potential: Fair Safety Risks/Education Teaching Recipient: Patient Teaching Methods: Discussion Response to Teaching: Verbalize Understanding Education Topics Provided: Word Finding Strategies Time Speech Therapy Time In: 09:00 Speech Therapy Time Out: 09:30 Total Billed Time: 30 Billed Treatment Time FÉLIX Lind ELIZABETH Nov 24, 2021 09:37
[2021-11-24] MEDS: DOCUSATE SODIUM 100 MG (COLACE) CAP PO SCH ×2 (09:42→20:25)
[2021-11-24] MEDS: SENNA W/DOCUSATE (SENOKOT S) TABLET PO SCH ×2 (09:42→20:25)
[2021-11-24] MEDS: polyethylene glycoL POWDER 17 GM (MIRALAX) PACK PO SCH ×2 (09:42→20:25)
[2021-11-24] MEDS: SENNOSIDES 8.6 MG (SENOKOT) TAB PO SCH ×2 (09:43→20:25)
--- NOTE | 2021-11-24 11:56 | Physical Therapy Daily Note ---
PT Daily Note-Current Subjective Pt laying Supine in bed upon arrival. Pt agrees to PT for QC scoring for possible d/c tomorrow. Pain Location: No Pain Reported Mental Status Patient Orientation: Person, Place, Time, Situation Transfers SCALE: Activities may be completed with or without assistive devices. 3-Oxksfnubfu-iwsbnul completes the activity by him/herself with no assistance from a helper. 5-Set-up or Clean-up Assistance-helper sets up or cleans up; patient completes activity. [place] assists only prior to or following the activity. 4-Supervision or Touching Assistance-helper provides verbal cues and/or touching/steadying and/or contact guard assistance as patient completes activity. Assistance may be provided throughout the activity or intermittently. 3-Partial/Moderate Assistance-helper does LESS THAN HALF the effort. [place] lifts, holds or supports trunk or limbs, but provides less than half the effort. 2-Substantial/Maximal Assistance-helper does MORE THAN HALF the effort. [place] lifts or holds trunk or limbs and provides more than half the effort. 5-Hbtkzbcxk-ycyzwj does ALL the effort. Patient does none of the effort to complete the activity. Or, the assistance of 2 or more helpers is required for the patient to complete the activity. If activity was not attempted, code reason: 7-Patient Refused. 9-Not Applicable-not attempted and the patient did not perform the activity before the current illness, exacerbation or injury. 10-Not Attempted due to Environmental Limitations-(lack of equipment, weather restraints, etc.). 88-Not Attempted due to Medical Conditions or Safety Concerns. Roll Left & Right (QC): 6 Sit to Lying (QC): 6 Lying to Sitting/Side of Bed(Q: 6 Sit to Stand (QC): 6 Chair/Lhr-hr-Htgix Xfer(QC): 6 Toilet Transfer (QC): 6 Car Transfer (QC): 6 Weight Bearing Full Weight Bearing Full Weight Bearing Gait Training Does the Patient Walk?: Yes Distance: 50' Walk 10 feet (QC): 6 Walk 50 ft with 2 Turns(QC): 6 Walking 10ft/uneven surface-QC: 6 Gait Assistive Device: FWW Stair Training Stair Training: Handrails/: uses walker #of Steps: 3 1 Step (curb) (QC): 6 4 Steps (QC): 7 12 Steps (QC): 7 Stairs: Pattern: Step to Balance Picking up an Object (QC): 6 Exercises Supine Ex: Ankle pumps, Quad Set, Glut sets, Heel Slides, Short Arc Quads, Hip abd/add Supine Reps: 15 Seated Therapy Exercises: Ankle pumps, Long arc quads, Hip flexion, Hip abd/add, Glut set Seated Reps: 15 Treatments Pt completes QC scoring items listed above including single step using FWW but has to rest at end of 3rd step. Pt also able to fold and hang recently washed clothes and put into closet. Pt is issued and reviewed written HEP for Supine & Seated Ex. Pt takes frequent RB between tasks for fatigue. Pt resting in recliner awaiting lunch at end of tx. All needs met, call light in hand. Assessment Current Status: Good Progress Pt is improving with mobility and activity tolerance but still requires frequent rest breaks for fatigue. PT Short Term Goals Short Term Goals Time Frame: Nov 25, 2021 Roll Left & Right: 6 Sit to lyin Lying to sitting on side of be: 6 Sit to stand: 4 (CGA) Chair/ipy-ve-ehkru transfer: 4 (SBA) Walk 10 feet: 4 (SBA) Walk 50 feet with two turns: 4 (SBA) PT Transplant Coordinator Goals Transplant Coordinator Goals PT Correction Goals Time Frame: Dec 09, 2021 Roll Left & Right (QC): 6 Sit to Lying (QC): 6 Lying-Sitting on Side/Bed(QC): 6 Sit to Stand (QC): 6 Chair/Mpq-xq-Owuks Xfer(QC): 6 Toilet Transfer (QC): 6 Car Transfer (QC): 6 Does the Patient Walk: Yes Walk 10 feet (QC): 6 Walk 50ft with 2 Turns (QC): 6 Walk 150 ft (QC): 6 Walking 10ft on Uneven Surface: 6 1 Step (curb) (QC): 6 4 Steps (QC): 6 12 Steps (QC): 88 Picking up an Object (QC): 6 Wheel 50 feet with 2 turns (QC: 9 Wheel 150 feet: 9 PT Plan Problem List Problem List: Activity Tolerance Treatment/Plan Treatment Plan: Continue Plan of Care Treatment Plan: Bed Mobility, Education, Functional Activity Maikel, Functional Strength, Group Therapy, Gait, Safety, Therapeutic Exercise, Transfers Treatment Duration: Dec 09, 2021 Frequency: At least 5 of 7 days/Wk (IRF) Estimated Hrs Per Day: 1.5 hours per day Patient and/or Family Agrees t: Yes Safety Risks/Education Patient Education: Steps, Issued Written HEP, Correct Positioning Teaching Recipient: Patient Teaching Methods: Demonstration, Discussion Response to Teaching: Verbalize Understanding, Return Demonstration Time/GCodes Time In: 1015 Time Out: 1145 Total Billed Treatment Time: 90 Total Billed Treatment 1, GT (15m), EX (20m) & FA x4 (55m) ASHWIN MACKENZIE DIRECTOR STRATEGIC PLANNING Nov 24, 2021 11:56
[2021-11-24 18:02] VITALS: BP 104/69
[2021-11-24 19:25] VITALS: BP 128/79
[2021-11-25] MEDS: CALCIUM CARBONATE 500 MG (TUMS) TAB.CHEW PO PRN (00:49)
[2021-11-25] MEDS: CATHETER FLUSH 10 ML SYR IVP SCH ×3 (05:23→20:37)
[2021-11-25] MEDS: KCL 20 MEQ TAB (K-DUR) PO SCH (05:23)
[2021-11-25] MEDS: inSUlin ASPART (NovoLOG) 1 UNIT/0.01 ML (CHARGE PER UNIT) SC SCH ×4 (05:23→20:37)
--- NOTE | 2021-11-25 05:52 | PM&R Progress Note ---
Subjective HPI/CC On Admission Date Seen by Provider: Nov 25, 2021 Time Seen by Provider: 12:00 Subjective/Events-last exam 11/25/2021: Patient ready for discharge tomorrow LifeVest will be fitted today Checked meds and labs 11/24/2021: Doing well DC planned for Monday Still in isolation for the full 10 days due to ICU admit but not due to hypoxia No pain Improved diet Life vest will be fitted. 11/23/2021: Doing ok Had nausea earlier Nutrition is a challenge Dr Kaufman will arrange for Lifevest 11/22/2021: Pt is doing really well Albumin of 2.3 Blood is coming out of the ostomy drainage site Overall doing well Weight is 108 lbs 11/21/2021: Doing well No major concerns Dr Nieves did evaluate the fistula No cough of hypoxia 11/20/2021: Doing well Eating better today after emesis last night Compazine was helpful No pain reported No dyspnea 11/19/2021: Pt is doing well No oxygen required Dietary consult for poor nutrition White count is 3 Hemoglobin is 8.2 Review of Systems General: Fatigue, Malaise Objective Exam Vital Signs Vital Signs Date Time Temp Pulse Resp B/P (MAP) Pulse Ox O2 Delivery O2 Flow Rate FiO2 11/25/21 20:22 36.7 89 18 113/73 (86) 100 Room Air Capillary Refill : General Appearance: No Apparent Distress, WD/WN, Chronically ill, Thin HEENT: PERRL/EOMI, Normal ENT Inspection, Pharynx Normal Neck: Full Range of Motion, Normal Inspection, Non Tender, Supple, Carotid Brui t Respiratory: Chest Non Tender, Lungs Clear, Normal Breath Sounds, No Accessory Muscle Use, No Respiratory Distress Cardiovascular: Regular Rate, Rhythm, No Edema, No Gallop, No JVD, No Murmur, Normal Peripheral Pulses Gastrointestinal: Normal Bowel Sounds, No Organomegaly, No Pulsatile Mass, Non Tender, Soft Back: Normal Inspection, No CVA Tenderness, No Vertebral Tenderness Extremity: Normal Capillary Refill, Normal Inspection, Normal Range of Motion, Non Tender, No Calf Tenderness, No Pedal Edema Neurologic/Psychiatric: Alert, Oriented x3, 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, motor block mechanic II-XII Norm as Tested, Abnormal Gait, Depressed Affect, Motor Weakness (generalized) Skin: Normal Color, Warm/Dry Lymphatic: No Adenopathy Results/Procedures Lab Patient resulted labs reviewed. FIM Transfers Therapy Code Descriptions/Definitions Functional [place] Measure: 0=Not Assessed/NA 4=Minimal Assistance 1=Total Assistance 5=Supervision or Setup 2=Maximal Assistance 6=Modified [place] 3=Moderate Assistance 7=Complete IndependenceSCALE: Activities may be completed with or without assistive devices. 2-Qnvyejfhkr-pdaktzv completes the activity by him/herself with no assistance from a helper. 5-Set-up or Clean-up Assistance-helper sets up or cleans up; patient completes activity. [place] assists only prior to or following the activity. 4-Supervision or Touching Assistance-helper provides verbal cues and/or touching/steadying and/or contact guard assistance as patient completes activity. Assistance may be provided throughout the activity or intermittently. 3-Partial/Moderate Assistance-helper does LESS THAN HALF the effort. [place] lifts, holds or supports trunk or limbs, but provides less than half the effort. 2-Substantial/Maximal Assistance-helper does MORE THAN HALF the effort. [place] lifts or holds trunk or limbs and provides more than half the effort. 8-Ghnmcdtlt-yadios does ALL the effort. Patient does none of the effort to complete the activity. Or, the assistance of 2 or more helpers is required for the patient to complete the activity. If activity was not attempted, code reason: 7-Patient Refused. 9-Not Applicable-not attempted and the patient did not perform the activity before the current illness, exacerbation or injury. 10-Not Attempted due to Environmental Limitations-(lack of equipment, weather restraints, etc.). 88-Not Attempted due to Medical Conditions or Safety Concerns. Roll Left to Right (QC): 6 Sit to Lying (QC): 6 Sit to Stand (QC): 6 Chair/Jzl-tp-Ajquy Xfer(QC): 6 Car Transfer (QC): 6 Gait Training Does the Patient Walk?: Yes Distance: 50' Walk 10 feet (QC): 6 Walk 50 ft with 2 Turns(QC): 6 Walk 150 ft (QC): 88 Walking 10ft/uneven surface-QC: 6 Gait Persons Needed: 1 Gait Assistive Device: FWW Wheelchair Training Does the Pt Use a Wheelchair?: No Wheel 50 ft with 2 turns (QC): 9 Wheel 150 ft (QC): 9 Stair Training Stair Training: Handrails/: uses walker #of Steps: 3 1 Step (curb) (QC): 6 4 Steps (QC): 7 12 Steps (QC): 7 Stairs: Pattern: Step to Balance Picking up an Object (QC): 6 ADL-Treatment Eating (QC): 6 Oral Hygiene (QC): 6 Shower/Bathe Self (QC): 6 Upper Body Dressing (QC): 6 Lower Body Dressing (QC): 6 On/Off Footwear (QC): 6 Toileting Hygiene (QC): 6 Toilet Transfer (QC): 6 Assessment/Plan Assessment and Plan Assess & Plan/Chief Complaint Assessment: Myopathy Malnutrition prealbumin 11 COVID infection with vaccination and 1 booster -Central line maintained -No oxygen required at this time -Currently on isolation for 20 days S/p ileostomy reversal with fistula and abscess October 2021 Dr Nieves -General surgery consulted again for possible drain removal today, 11/18/21 -Drain removed 11/18/21 after placed from [facility] 10/14 -Levofloxacin last day CHF -Echo EF 20-25% -Lasix and spironolactone and Entresto Type II MD -Cardiology following, appreciate their recs -Telemetry DC Afib -Lovenox HTN -Well controlled currently Diabetes -SSI CKD3a -BUN/Cr wnl Recent hospitalization at [place] 10/20-11/11 following stay at [facility] 10/14 for pelvic abscess drainage. Diet: Regular DVT prophylaxis: Lovenox and SCDs 11/19/2021: Dietary consult appreciated Continue therapy 11/20/2021: Monitor N/V IS PT OT 11/21/2021: Monitor nutrition Supportive care 11/22/2021: Increase nutrition 11/23/2021: Life vest Monitor closely 11/24/2021: Life vest fitting DC Monday11/25/2021: LifeVest Discharge home tomorrow (1) Acute heart failure with reduced ejection fraction and diastolic dysfunction Assessment & Plan: Symptomatically improved. She is on carvedilol, Entresto and spironolactone. At some point, she may need an ischemic evaluation but we will wait until she recovers from the COVID infection for pursuing this further. (2) Cardiomyopathy Assessment & Plan: Her most recent previous echocardiogram from 2020 showed mild left ventricular systolic dysfunction. Now she has severe left ventricular systolic dysfunction. She may need an ischemic evaluation once she recovers from her COVID. We will continue the present guideline directed medical therapy. I have ordered a LifeVest that will be fitted possibly tomorrow. (3) Primary hypertension Assessment & Plan: Blood pressure is reasonably controlled with the present combination of medications. If anything, at times she is running on the low side. (4) Mixed hyperlipidemia Assessment & Plan: It appears as though she may have been on both atorvastatin and fenofibrate at home. I resumed the atorvastatin. I will hold off on rest arting fenofibrate due to her acute debility with potentially increased risk for medication interactions between the atorvastatin and fenofibrate. LORENZO MIMS DO Nov 25, 2021 05:52
[2021-11-25 07:23] VITALS: BP 121/75
--- NOTE | 2021-11-25 07:50 | Progress Note - Surgery ---
LUZMA KLINE 11/25/21 0750: Subjective Date Seen by a Provider: Nov 25, 2021 Time Seen by a Provider: 07:12 Subjective/Events-last exam Ms. Garcia is being followed for a drain that was placed in her ventral abdomen. It was pulled 7 days ago. 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 She reports the bag was changed 2 days ago and there has been no drainage in the last 48 hours. She is working with PT. She reports some diarrhea early this morning and she has not been able to go back to sleep after that. She also reports some heartburn with the Ensure drinks but not the Glucerna. The plan is for her to go home tomorrow. Review of Systems General: No Chills, No Fatigue HEENT: No Head Aches, No Visual Changes Pulmonary: No Dyspnea, No Cough Cardiovascular: No: Chest Pain, Palpitations Gastrointestinal: Diarrhea, Other (Heartburn) Neurological: No: Weakness, Confusion Objective Exam Vital Signs Date Time Temp Pulse Resp B/P (MAP) Pulse Ox O2 Delivery O2 Flow Rate FiO2 11/25/21 07:23 36.8 93 18 121/75 (90) 100 Room Air 11/24/21 20:48 Room Air 11/24/21 19:25 36.8 93 18 128/79 (95) 98 Room Air 11/24/21 18:02 94 104/69 (81) 11/24/21 09:00 Room Air I & O 11/25/21 07:00 Intake Total 1121 ml Output Total 0 ml Balance 1121 ml Capillary Refill : General Appearance: No Apparent Distress, Chronically ill, Thin HEENT: PERRL/EOMI, Moist Mucous Membranes Neck: Non Tender, Supple Respiratory: Chest Non Tender, Lungs Clear, Normal Breath Sounds, No Accessory Muscle Use, No Respiratory Distress Cardiovascular: Regular Rate, Rhythm, No Edema, Normal Peripheral Pulses Peripheral Pulses: 2+ Radial Pulses (R), 2+ Radial Pulses (L) Gastrointestinal: soft; No distended, No guarding, No rebound; tenderness (Around fistula), other (Ostomy bag covering fistula) Extremity: Non Tender, No Pedal Edema Neurologic/Psychiatric: Alert, Oriented x3, 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 Skin: Normal Color, Warm/Dry Results Lab Laboratory Tests 11/24/21 11:19: Glucometer 135H 11/24/21 15:29: Glucometer 130H 11/24/21 20:10: Glucometer 124H 11/25/21 05:22: Glucometer 96 Assessment/Plan Assessment/Plan Assessment/Plan Enterocutaneous Fistula Weakness COVID Malnutrition Removed the drain 7 days ago will monitor fistula output. Last 48 hours was 0 mL. Likely a low-output fistula. Will monitor and see if this continues to decrease on its own, still may need to discuss NPO and TPN. Pt encouraged to take her protein shakes TID to help with nutrition, Pt encouraged to ambulate and work with PT Home tomorrow. CHRIS LONDON DO 11/25/21 1055: Subjective Time Seen by a Provider: 10:49 Subjective/Events-last exam Pt seen and examined, states she got woken up at 5am with diarrhea. Also states the shake she drank last night gave her "abdominal cramps". Review of Systems General: No Chills; Fatigue Pulmonary: No Dyspnea, No Cough Cardiovascular: No: Chest Pain, Palpitations Gastrointestinal: Diarrhea, Other (Heartburn) Objective Exam General Appearance: No Apparent Distress, Chronically ill, Thin HEENT: Moist Mucous Membranes Respiratory: Chest Non Tender, Lungs Clear, Normal Breath Sounds, No Accessory Muscle Use, No Respiratory Distress Cardiovascular: Regular Rate, Rhythm, No Murmur Gastrointestinal: soft; No distended, No guarding, No rebound; tenderness (Around fistula), other (Ostomy bag covering fistula - no output) Assessment/Plan Assessment/Plan Assessment/Plan Enterocutaneous Fistula Weakness COVID Malnutrition Removed the drain 7 days ago will monitor fistula output. Last 48 hours was 0 mL. Likely a low-output fistula. Will monitor and see if this continues to decrease on its own, still may need to discuss NPO and TPN. Pt encouraged to take her protein shakes TID to help with nutrition, Pt encouraged to ambulate and work with PT Home tomorrow. Supervisory-Addendum Brief Verification & Attestation Participated in pt care: history, MDM, physical Personally performed: exam, history, MDM, supervision of care Care discussed with: Medical Student Procedures: n/a Verification and Attestation of Medical Student E/M Service A medical student performed and documented this service. I then reviewed and verified all information documented by the medical student and made modifications to such information, when appropriate. I personally performed a physical exam, medical decision making and then discussed any differences between the notes and made revisions as necessary to create one note. Chris London , 11/25/21 , 10:55 LUZMA KLINE Nov 25, 2021 07:50 CHRIS LONDON DO Nov 25, 2021 10:55
[2021-11-25] MEDS: VITAMIN D3 125 MCG (5,000 UNITS) CAPSULE PO SCH (08:39)
[2021-11-25] MEDS: FUROSEMIDE 40 MG (LASIX) TAB PO SCH (08:39)
[2021-11-25] MEDS: ASPIRIN 81 MG CHEW (CHILDREN'S ASA) PO SCH (08:39)
[2021-11-25] MEDS: SACUBITRIL/VALSARTAN 24/26 MG (ENTRESTO) TABLET PO SCH ×2 (08:39→20:37)
[2021-11-25] MEDS: CALCIUM CARBONATE 500 MG (TUMS) TAB.CHEW PO SCH ×3 (08:41→20:37)
[2021-11-25] MEDS: SPIRONOLACTONE 25 MG (ALDACTONE) TAB PO SCH (08:41)
[2021-11-25] MEDS: SENNA W/DOCUSATE (SENOKOT S) TABLET PO SCH ×2 (09:43→20:37)
[2021-11-25] MEDS: DOCUSATE SODIUM 100 MG (COLACE) CAP PO SCH ×2 (09:43→20:38)
[2021-11-25] MEDS: polyethylene glycoL POWDER 17 GM (MIRALAX) PACK PO SCH ×2 (09:43→20:38)
[2021-11-25] MEDS: SENNOSIDES 8.6 MG (SENOKOT) TAB PO SCH ×2 (09:44→20:37)
--- NOTE | 2021-11-25 09:58 | Speech Therapy Daily Note ---
Speech Daily Progress Note Subjective Date Seen by Provider: Nov 25, 2021 Time Seen by Provider: 08:30 The patient was transferring from the restroom to the bed upon entrance to her room. The patient was appropriately using her walker for safety and being aided by the RN. The patient greeted the clinician appropriately and was agreeable to participation in the cognitive linguistic treatment session. The patient reported increased weakness on this date, as she has experienced diarrhea throughout the morning. Per patient, the frequent trips to and from the bathroom are resulting in the reported fatigue. Objective The patient completed word-finding exercises on this date, as she was provided three words and asked to provide the category of the three words, as well as, a fourth word which could be included in the category. The patient displayed excellent accuracy (100%), independently. Expression of Ideas/Wants: (4) Understanding Verbal Content: (4) Brief Interview-Mental Status: Yes Repetition of Three Words: Three (3) Temporal Orientation: Year: Correct (3) Temporal Orientation: Month: Accurate within 5 days(2) Temporal Orientation: Day: Correct (1) Recall : Wear to say "Sock": Yes, no cue required (2) Recall : Color: Yes, no cue required (2) Recall : Bed: Yes,after cueing (1) Memory/Recall Ability: Current season, That he or she is in a hsp/hsp unit, room number, staff names Assessment Assessment Current Status: Good Progress Treatment Plan Discontinue ST Speech Short Term Goals Short Term Goals Short Term Goals 1. The patient will demonstrate 80% accuracy with memory exercises with mild clinician verbal and visual cueing. Time Frame-STG: One Week. Speech Kitchen Help Handyman Goals Half-Way Goals 1. The patient will improve her cognitive linguistic skills for safe discharge to the least restrictive environment. Time Frame: Two Weeks. Speech-Plan Treatment Plan Speech Therapy Treatment Plan: Discontinue ST Treatment Duration: Dec 02, 2021 Frequency: 4 times per week (Four to five times per day.) Estimated Hrs Per Day: .5 hour per day Rehab Potential: Fair Safety Risks/Education Teaching Recipient: Patient Teaching Methods: Discussion Response to Teaching: Verbalize Understanding Education Topics Provided: Plan of Care Time Speech Therapy Time In: 08:30 Speech Therapy Time Out: 09:00 Total Billed Time: 30 Billed Treatment Time 1FÉLIX ELIZABETH ST Nov 25, 2021 09:58
--- NOTE | 2021-11-25 09:59 | Therapy Team Discharge Summary ---
Therapy Discharge Summary Discharge Recommendations Date of Discharge Physical Therapy Roll Left to Right (QC): 6 Sit to Lying (QC): 6 Lying to Sitting/Side of Bed(Q: 6 Sit to Stand (QC): 6 Chair/Hwc-on-Zdffd Xfer(QC): 6 Toilet Transfer (QC): 5 Car Transfer (QC): 6 Does the Patient Walk: Yes Mode of Locomotion: Walk Anticipated Mode of Locomotion: Walk Walk 10 feet (QC): 6 Walk 50 ft with 2 Turns(QC): 6 Walk 150 ft (QC): 88 Walking 10ft on uneven surface: 6 Distance: 50'x3 Gait Assistive Device: FWW Does the Pt Use a Wheelchair: No Wheel 50 ft with 2 turns (QC): 9 Wheel 150 ft (QC): 9 #of Steps: 3 1 Step (curb) (QC): 6 4 Steps (QC): 7 12 Steps (QC): 7 Walking Assistive Device: Walker Balance Sitting Static: Normal Balance Sitting Dynamic: Normal Balance-Standing Static: Fair Picking up an Object (QC): 6 Occupational Therapy Decreased Activ Tolerance Eating (QC): 6 Oral Hygiene (QC): 6 Shower/Bathe Self (QC): 6 Upper Body Dressing (QC): 6 Lower Body Dressing (QC): 6 On/Off Footwear (QC): 6 Toileting Hygiene (QC): 6 Speech-Language Pathology The patient has met speech pathology goals placed at admission and has displayed excellent progression with cognitive skills. Per patient, "I think the infection just made everything more difficult." Expression of Ideas/Wants: (4) Understanding Verbal Content: (4) Brief Interview-Mental Status: Yes Repetition of Three Words: Three (3) Temporal Orientation: Year: Correct (3) Temporal Orientation: Month: Accurate within 5 days(2) Temporal Orientation: Day: Correct (1) Recall : Wear to say "Sock": Yes, no cue required (2) Recall : Color: Yes, no cue required (2) Recall : Bed: Yes,after cueing (1) Memory/Recall Ability: Current season, That he or she is in a hsp/hsp unit, room number, staff names PT Senior Care Goals Industrial Designer Goals PT Senior Care Goals Time Frame: Dec 09, 2021 Roll Left to Right (QC): 6 Sit to Lying (QC): 6 Lying-Sitting on Side/Bed(QC): 6 Sit to Stand (QC): 6 Chair/Wno-pb-Vxmah Xfer(QC): 6 Car Transfer (QC): 6 Does the Patient Walk: Yes Walk 10 feet (QC): 6 Walk 10ft-Uneven Surface(QC): 6 Walk 50ft with 2 Turns (QC): 6 Walk 150 ft (QC): 6 Wheel 50 feet with 2 turns (QC: 9 1 Step (curb) (QC): 6 4 Steps (QC): 6 12 Steps (QC): 88 Picking up an Object (QC): 6 OT Industrial Designer Goals Senior Care Goals Time Frame: Dec 02, 2021 Eating (QC): 6 (met) Oral Hygiene (QC): 6 (met) Shower/Bathe Self (QC): 6 (met) Upper Body Dressing (QC): 6 (met) Lower Body Dressing (QC): 6 (met) On/Off Footwear (QC): 6 (met) Toileting Hygiene (QC): 6 (met) Toilet/Commode Transfer (QC): 6 1=Demonstrate adherence to instructed precautions during ADL tasks. 2=Patient will verbalize/demonstrate understanding of assistive devices/modifications for ADL. 3=Patient will improve strength/tolerance for activity to enable patient to perform ADL's. Speech Industrial Designer Goals Senior Care Goals 1. The patient will improve her cognitive linguistic skills for safe discharge to the least restrictive environment. MET: The patient has met speech pathology goals placed at admission and has displayed excellent progression with cognitive skills. Per patient, "I think the infection just made everything more difficult." Time Frame: Two Weeks. CHAIM ELLIS Nov 25, 2021 09:59
--- NOTE | 2021-11-25 10:09 | Physical Therapy Daily Note ---
PT Daily Note-Current Subjective Patient in bed pre tx, agrees to PT, has no complaints of pain but states she is very tired and can't do much, feels ill. Will be co-treating with OT due to poor patient mobility, strength, endurance, severe debility and fatigue, coordinate UE and LE with activity, safety and reduce risk of falls. Appearance Patient in bed post tx with nurse call, phone, tray, all needs met. Mental Status Patient Orientation: Person, Place, Situation Attachments: Colostomy/Ileostomy Transfers SCALE: Activities may be completed with or without assistive devices. 7-Fjbfgnwnsr-lgtcgmq completes the activity by him/herself with no assistance from a helper. 5-Set-up or Clean-up Assistance-helper sets up or cleans up; patient completes activity. [place] assists only prior to or following the activity. 4-Supervision or Touching Assistance-helper provides verbal cues and/or touching/steadying and/or contact guard assistance as patient completes activity. Assistance may be provided throughout the activity or intermittently. 3-Partial/Moderate Assistance-helper does LESS THAN HALF the effort. Independence lifts, holds or supports trunk or limbs, but provides less than half the effort. 2-Substantial/Maximal Assistance-helper does MORE THAN HALF the effort. Independence lifts or holds trunk or limbs and provides more than half the effort. 4-Uswjtxffe-nezstm does ALL the effort. Patient does none of the effort to complete the activity. Or, the assistance of 2 or more helpers is required for the patient to complete the activity. If activity was not attempted, code reason: 7-Patient Refused. 9-Not Applicable-not attempted and the patient did not perform the activity before the current illness, exacerbation or injury. 10-Not Attempted due to Environmental Limitations-(lack of equipment, weather restraints, etc.). 88-Not Attempted due to Medical Conditions or Safety Concerns. Roll Left & Right (QC): 6 Sit to Lying (QC): 6 Lying to Sitting/Side of Bed(Q: 6 Sit to Stand (QC): 6 Chair/Ypi-fo-Rivmo Xfer(QC): 6 Weight Bearing Full Weight Bearing Full Weight Bearing Gait Training Distance: 80', 40'x3 Walk 10 feet (QC): 6 Walk 50 ft with 2 Turns(QC): 6 Gait Assistive Device: FWW slow but steady ambulation Exercises Supine Ex: Ankle pumps, Quad Set, Glut sets, Heel Slides, Short Arc Quads, Straight leg raise, Hip abd/add Supine Reps: 20 Treatments PT performed bed mobility and transfers, ambulation, LE strengthening, OT performed UE strengthening, UE positioning and safety during activity. Assessment Current Status: Poor Progress Patient needed many long rest breaks due to fatigue. PT Short Term Goals Short Term Goals Time Frame: Nov 25, 2021 Roll Left & Right: 6 Sit to lyin Lying to sitting on side of be: 6 Sit to stand: 4 (CGA) Chair/rfh-fe-ocexk transfer: 4 (SBA) Walk 10 feet: 4 (SBA) Walk 50 feet with two turns: 4 (SBA) PT Nursing Home Goals Nursing Home Goals PT Nursing Home Goals Time Frame: Dec 09, 2021 Roll Left & Right (QC): 6 Sit to Lying (QC): 6 Lying-Sitting on Side/Bed(QC): 6 Sit to Stand (QC): 6 Chair/Ezr-wo-Ndwbo Xfer(QC): 6 Toilet Transfer (QC): 6 Car Transfer (QC): 6 Does the Patient Walk: Yes Walk 10 feet (QC): 6 Walk 50ft with 2 Turns (QC): 6 Walk 150 ft (QC): 6 Walking 10ft on Uneven Surface: 6 1 Step (curb) (QC): 6 4 Steps (QC): 6 12 Steps (QC): 88 Picking up an Object (QC): 6 Wheel 50 feet with 2 turns (QC: 9 Wheel 150 feet: 9 PT Plan Problem List Problem List: Activity Tolerance, Functional Strength, Safety, Balance, Gait, Transfer, Bed Mobility, ROM Treatment/Plan Treatment Plan: Continue Plan of Care Treatment Plan: Bed Mobility, Education, Functional Activity Maikel, Functional Strength, Group Therapy, Gait, Safety, Therapeutic Exercise, Transfers Treatment Duration: Dec 09, 2021 Frequency: At least 5 of 7 days/Wk (IRF) Estimated Hrs Per Day: 1.5 hours per day Patient and/or Family Agrees t: Yes Safety Risks/Education Patient Education: Gait Training, Transfer Techniques, Correct Positioning, Safety Issues Teaching Recipient: Patient Teaching Methods: Demonstration, Discussion Response to Teaching: Reinforcement Needed Time/GCodes Time In: 0900 Time Out: 1015 Total Billed Treatment Time: 75 Total Billed Treatment 1 visit FA 30' EX 45' co-treated with OT for 75' RANI DUMONT PT Nov 25, 2021 10:09
--- NOTE | 2021-11-25 10:13 | Occupational Ther Daily Note ---
OT Current Status-Daily Note Subjective Pt dozing in bed, woke easily to name. Pt agrees to therapy. Pt c/o fatigue, pt did not sleep last night due to diarrhea and needing to get up multiple times last night and this morning. OT/PT co-treat ([id number]), skills of 2 clinicians required due to increased fatigue, increasing overall strength for daily tasks and activity tolerance. PT focusing on ambulation and B LE strengthening while OT focusing on functional tasks and B UE strengthening. Mental Status/Objective Patient Orientation: Person, Place, Time, Situation Attachments: IV ADL-Treatment Pt declines any ADLs. Does ambulate to closet and gather clothing to don when pt feels better. Uses FWW to transport clothing to bed. Pt declines to eat food. Therapy Code Descriptions/Definitions Functional [place] Measure: 0=Not Assessed/NA 4=Minimal Assistance 1=Total Assistance 5=Supervision or Setup 2=Maximal Assistance 6=Modified [place] 3=Moderate Assistance 7=Complete IndependenceSCALE: Activities may be completed with or without assistive devices. 2-Mxiplpywsw-ewltooq completes the activity by him/herself with no assistance from a helper. 5-Set-up or Clean-up Assistance-helper sets up or cleans up; patient completes activity. [place] assists only prior to or following the activity. 4-Supervision or Touching Assistance-helper provides verbal cues and/or touching/steadying and/or contact guard assistance as patient completes activity. Assistance may be provided throughout the activity or intermittently. 3-Partial/Moderate Assistance-helper does LESS THAN HALF the effort. [place] lifts, holds or supports trunk or limbs, but provides less than half the effort. 2-Substantial/Maximal Assistance-helper does MORE THAN HALF the effort. [place] lifts or holds trunk or limbs and provides more than half the effort. 3-Wowaihftx-gxplee does ALL the effort. Patient does none of the effort to complete the activity. Or, the assistance of 2 or more helpers is required for the patient to complete the activity. If activity was not attempted, code reason: 7-Patient Refused. 9-Not Applicable-not attempted and the patient did not perform the activity before the current illness, exacerbation or injury. 10-Not Attempted due to Environmental Limitations-(lack of equipment, weather restraints, etc.). 88-Not Attempted due to Medical Conditions or Safety Concerns. Toileting Hygiene (QC): 6 (Pt is getting up and completing toileting independently throughout day.) Toilet Transfer (QC): 6 Other Treatment Pt requires frequent and lengthy recovery breaks throughout session. Pt completes 6 B UE strengthening exercises against gravity while in supine. Skilled instructions required for correct technique. Pt tolerated 1 set 20 reps of each. After session, pt lying in bed with call light/phone in reach. All needs met in room. OT Short Term Goals Short Term Goals Time Frame: Nov 25, 2021 Eatin Oral hygiene: 6 Toileting hygiene: 6 Shower/bathe self: 5 Upper body dressin Lower body dressin Putting on/taking off footwear: 6 OT Long-Term Goals Long-Term Goals Time Frame: Dec 02, 2021 Eating (QC): 6 (met) Oral Hygiene (QC): 6 (met) Toileting Hygiene (QC): 6 (met) Shower/Bathe Self (QC): 6 (met) Upper Body Dressing (QC): 6 (met) Lower Body Dressing (QC): 6 (met) On/Off Footwear (QC): 6 (met) 1=Demonstrate adherence to instructed precautions during ADL tasks. 2=Patient will verbalize/demonstrate understanding of assistive devices/modifications for ADL. 3=Patient will improve strength/tolerance for activity to enable patient to perform ADL's. OT Education/Plan Problem List/Assessment Assessment: Decreased Activ Tolerance, Decreased UE Strength Discharge Recommendations Plan/Recommendations: Continue POC Treatment Plan/Plan of Care Patient would benefit from OT for education, treatment and training to promote independence in ADL's, mobility, safety and/or upper extremity function for ADL's. Plan of Care: ADL Retraining, Concurrent Therapy, Functional Mobility, Group Exercise/Act as Ind, UE Funct Exercise/Act Treatment Duration: Dec 02, 2021 Frequency: At least 5 of 7 days/Wk (IRF) Estimated Hrs Per Day: 1.5 hours per day (75-90 min/day ) Agreement: Yes Rehab Potential: Fair Time/GCodes Start Time: 09:00 Stop Time: 10:15 Total Time Billed (hr/min): 75 Billed Treatment Time 1 visit-EX 2 (30 min) FA 3 (45 min) co-treat with PT 75 min ELIZABETH BUTLER Nov 25, 2021 10:13
[2021-11-25] MEDS ORDERED: LEVO150T6 PO (13:12)
[2021-11-25] MEDS ORDERED: ATOR20TA66 PO (13:12)
[2021-11-25] MEDS: PREPARATION H OINTMENT 57 GR TUBE PR PRN (15:59)
[2021-11-25] MEDS: LOPERAMIDE 2 MG (IMODIUM) TABLET PO PRN (16:01)
[2021-11-25 20:22] VITALS: BP 113/73
[2021-11-25] MEDS ORDERED: ASPI81TA64 PO (21:34)
[2021-11-25] MEDS ORDERED: SPIR25TA5 PO (21:34)
[2021-11-25] MEDS ORDERED: ATOR40TA PO (21:34)
[2021-11-25] MEDS ORDERED: FURO40TA4 PO (21:34)
[2021-11-25] MEDS ORDERED: POTA-169 PO (21:34)
[2021-11-25] MEDS ORDERED: CARV3.122 PO (21:34)
[2021-11-25] MEDS ORDERED: SACU1TAB2 PO (21:34)
--- NOTE | 2021-11-25 21:37 | D/C HH Face to Face Order ---
D/C HH Face to Face Orders Reconcile Patient Problems Problems Reviewed?: Yes Instructions for Patient HH Patient Instructions/FollowUp: pcp 1 week Physician to follow Patient: [facility] Discharge Diet for Home: No Restrictions Patient Problems: Debility COVID Patient Data-Allergies,Ht & Wt Patient Allergies: Coded Allergies: Penicillins (Verified Allergy, Unknown, 08/20/20) raspberry (Verified Allergy, Unknown, 08/20/20) Home Health Need/Face to Face Date of Face to Face: Nov 25, 2021 Clinical Findings: Generalized weakness and fatigue, Instability, Muscle weakness, Unsteady gait I have seen Pt vlfi-qm-vxax: Yes Discharged To: Home Diagnosis/Conditions: Debility Patient is Homebound due to: Jenny fall risk due to instabilty, Muscle weakness Homebound Status Due to the above stated illness, injury or surgical procedure (medical condition or diagnosis) and associated clinical findings, the patient is homebound because of his/her inability to leave home except with aid of a supportive device and/or person AND leaving the home requires a considerable and taxing effort or is medically contraindicated. Pt req the following assistanc: Walker Home Health Nursing Orders Home Health Services Order: Nursing Services, [place]-Evaluate & Treat, Physical Therapy-Evaluate & Treat, Wound Care-Eval/Treat Certify Stmt I certify that this patient is under my care and that I, a nurse practitioner or a physician; a community assistant working with me, had a face to face encounter that - meets the physician face to face encounter requirements with this patient as dated. LORENZO MIMS DO Nov 25, 2021 21:37
--- NOTE | 2021-11-26 04:58 | Discharge Summary ---
Diagnosis/Chief Complaint Date of Admission Nov 18, 2021 at 13:25 Date of Discharge Discharge Date: Nov 26, 2021 Discharge Diagnosis Assessment: Myopathy Malnutrition prealbumin 11 COVID infection with vaccination and 1 booster -Central line maintained -No oxygen required at this time -Currently on isolation for 20 days S/p ileostomy reversal with fistula and abscess October 2021 Dr Nieves -General surgery consulted again for possible drain removal today, 11/18/21 -Drain removed 11/18/21 after placed from [facility] IR 10/14 -Levofloxacin last day CHF -Echo EF 20-25% -Lasix and spironolactone and Entresto Type II IN -Cardiology following, appreciate their recs -Telemetry DC Afib -Lovenox HTN -Well controlled currently Diabetes -SSI CKD3a -BUN/Cr wnl Recent hospitalization at [facility] 10/20-11/11 following stay at [facility] 10/14 for pelvic abscess drainage. Diet: Regular DVT prophylaxis: Lovenox and SCDs 11/19/2021: Dietary consult appreciated Continue therapy 11/20/2021: Monitor N/V IS PT OT 11/21/2021: Monitor nutrition Supportive care 11/22/2021: Increase nutrition 11/23/2021: Life vest Monitor closely 11/24/2021: Life vest fitting DC Monday11/25/2021: LifeVest Discharge home tomorrow (1) Acute heart failure with reduced ejection fraction and diastolic dysfunction Assessment & Plan: Symptomatically improved. She is on carvedilol, Entresto and spironolactone. At some point, she may need an ischemic evaluation but we will wait until she recovers from the COVID infection for pursuing this further. (2) Cardiomyopathy Assessment & Plan: Her most recent previous echocardiogram from 2020 showed mild left ventricular systolic dysfunction. Now she has severe left ventricular systolic dysfunction. She may need an ischemic evaluation once she recovers from her COVID. We will continue the present guideline directed medical therapy. I have ordered a LifeVest that will be fitted possibly tomorrow. (3) Primary hypertension Assessment & Plan: Blood pressure is reasonably controlled with the present combination of medications. If anything, at times she is running on the low side. (4) Mixed hyperlipidemia Assessment & Plan: It appears as though she may have been on both atorvastatin and fenofibrate at home. I resumed the atorvastatin. I will hold off on restarting fenofibrate due to her acute debility with potentially increased risk for medication interactions between the atorvastatin and fenofibrate. Discharge Summary Discharge Physical Examination Allergies: Coded Allergies: Penicillins (Verified Allergy, Unknown, 08/20/20) raspberry (Verified Allergy, Unknown, 08/20/20) Vitals & I&Os Vital Signs Date Time Temp Pulse Resp B/P (MAP) Pulse Ox O2 Delivery O2 Flow Rate FiO2 11/26/21 11:10 36.5 92 18 117/74 99 Room Air General Appearance: Alert, Oriented X3, Cooperative Respiratory: Clear to Auscultation Cardiovascular: Regular Rate Neuro: Normal Gait, Normal Speech, Strength at 5/5 X4 Ext Psych/Mental Status: Mental Status NL Hospital Course Was the Problem List Reviewed?: Yes Standard hospital course after she was admitted following a diagnosis of COVID- 19 infection without hypoxia but she remained in isolation the entire rehab course. Focused on nutrition due to severe malnutrition gastrointestinal surgeries. Overall she regained enough function and independence in order to return back home to independent living with family checking in on her life alert battery was replaced and she had her cell phone on at all times. Ejection fraction noted to have 25% So LifeVest was placed before discharge. Labs (last 24 hrs) Laboratory Tests 11/18/21 16:21: Glucometer 101 11/18/21 20:38: Glucometer 202H 11/19/21 06:00: White Blood Count 3.0L, Red Blood Count 2.80L, Hemoglobin 8.2L, Hematocrit 25L, Mean Corpuscular Volume 89, Mean Corpuscular Hemoglobin 29, Mean Corpuscular Hemoglobin Concent 33, Red Cell Distribution Width 17.3H, Platelet Count 148, Mean Platelet Volume 11.4, Immature Granulocyte % (Auto) 0, Neutrophils (%) (Auto) 42, Lymphocytes (%) (Auto) 45H, Monocytes (%) (Auto) 9, Eosinophils (%) (Auto) 3, Basophils (%) (Auto) 1, Neutrophils # (Auto) 1.3L, Lymphocytes # (Auto) 1.3, Monocytes # (Auto) 0.3, Eosinophils # (Auto) 0.1, Basophils # (Auto) 0.0, Immature Granulocyte # (Auto) 0.0, Sodium Level 141, Potassium Level 3.8, Chloride Level 110H, Carbon Dioxide Level 19L, Anion Gap 12, Blood Urea Nitrogen 11, Creatinine 0.93, Estimat Glomerular Filtration Rate 64, BUN/Creatinine Ratio 12, Glucose Level 74, Calcium Level 6.3L, Corrected Calcium 7.8L, Total Bilirubin 0.3, Aspartate Amino Transf (AST/SGOT) 27, Alanine Aminotransferase (ALT/SGPT) 17, Alkaline Phosphatase 60, Total Protein 4.9L, Albumin 2.1L 11/19/21 11:14: Glucometer 123H 11/19/21 15:26: Glucometer 122H 11/19/21 20:48: Glucometer 144H 11/20/21 06:18: Glucometer 84 11/20/21 11:02: Glucometer 145H 11/20/21 16:05: Glucometer 102 11/20/21 20:33: Glucometer 191H 11/21/21 05:09: Glucometer 82 11/21/21 11:16: Glucometer 147H 11/21/21 15:43: Glucometer 116H 11/21/21 20:18: Glucometer 177H 11/22/21 06:23: White Blood Count 2.8L, Red Blood Count 3.04L, Hemoglobin 8.7L, Hematocrit 28L, Mean Corpuscular Volume 91, Mean Corpuscular Hemoglobin 29, Mean Corpuscular Hemoglobin Concent 31L, Red Cell Distribution Width 16.9H, Platelet Count 180, Mean Platelet Volume 10.9, Immature Granulocyte % (Auto) 0, Neutrophils (%) (Auto) 43, Lymphocytes (%) (Auto) 39, Monocytes (%) (Auto) 10, Eosinophils (%) (Auto) 7, Basophils (%) (Auto) 1, Neutrophils # (Auto) 1.2L, Lymphocytes # (Auto) 1.1, Monocytes # (Auto) 0.3, Eosinophils # (Auto) 0.2, Basophils # (Auto) 0.0, Immature Granulocyte # (Auto) 0.0, Sodium Level 138, Potassium Level 4.1, Chloride Level 112H, Carbon Dioxide Level 19L, Anion Gap 7, Blood Urea Nitrogen 11, Creatinine 0.85, Estimat Glomerular Filtration Rate 71, BUN/Creatinine Ratio 13, Glucose Level 84, Calcium Level 6.9L, Corrected Calcium 8.3L, Total Bilirubin 0.4, Aspartate Amino Transf (AST/SGOT) 29, Alanine Aminotransferase (ALT/SGPT) 20, Alkaline Phosphatase 81, Total Protein 5.3L, Albumin 2.3L 11/22/21 10:50: Glucometer 120H 11/22/21 15:41: Glucometer 115H 11/22/21 20:23: Glucometer 165H 11/23/21 05:44: Glucometer 87 11/23/21 10:58: Glucometer 147H 11/23/21 15:41: Glucometer 134H 11/23/21 20:24: Glucometer 144H 11/24/21 05:00: Sodium Level 138, Potassium Level 4.6, Chloride Level 108H, Carbon Dioxide Level 19L, Anion Gap 11, Blood Urea Nitrogen 15, Creatinine 0.88, Estimat Glomerular Filtration Rate 68, BUN/Creatinine Ratio 17, Glucose Level 93, Calcium Level 7.7L 11/24/21 11:19: Glucometer 135H 11/24/21 15:29: Glucometer 130H 11/24/21 20:10: Glucometer 124H 11/25/21 05:22: Glucometer 96 11/25/21 10:46: Glucometer 123H 11/25/21 15:26: Glucometer 189H 11/25/21 20:17: Glucometer 91 11/26/21 05:32: Glucometer 96 Pending Labs Laboratory Tests 11/18/21 16:21: Glucometer 101 11/18/21 20:38: Glucometer 202 11/19/21 06:00: White Blood Count 3.0, Red Blood Count 2.80, Hemoglobin 8.2, Hematocrit 25, Mean Corpuscular Volume 89, Mean Corpuscular Hemoglobin 29, Mean Corpuscular Hemoglobin Concent 33, Red Cell Distribution Width 17.3, Platelet Count 148, Mean Platelet Volume 11.4, Immature Granulocyte % (Auto) 0, Neutrophils (%) (Auto) 42, Lymphocytes (%) (Auto) 45, Monocytes (%) (Auto) 9, Eosinophils (%) (Auto) 3, Basophils (%) (Auto) 1, Neutrophils # (Auto) 1.3, Lymphocytes # (Auto) 1.3, Monocytes # (Auto) 0.3, Eosinophils # (Auto) 0.1, Basophils # (Auto) 0.0, Immature Granulocyte # (Auto) 0.0, Sodium Level 141, Potassium Level 3.8, Chloride Level 110, Carbon Dioxide Level 19, Anion Gap 12, Blood Urea Nitrogen 11, Creatinine 0.93, Estimat Glomerular Filtration Rate 64, BUN/Creatinine Ratio 12, Glucose Level 74, Calcium Level 6.3, Corrected Calcium 7.8, Total Bilirubin 0.3, Aspartate Amino Transf (AST/SGOT) 27, Alanine Aminotransferase (ALT/SGPT) 17, Alkaline Phosphatase 60, Total Protein 4.9, Albumin 2.1 11/19/21 11:14: Glucometer 123 11/19/21 15:26: Glucometer 122 11/19/21 20:48: Glucometer 144 11/20/21 06:18: Glucometer 84 11/20/21 11:02: Glucometer 145 11/20/21 16:05: Glucometer 102 11/20/21 20:33: Glucometer 191 11/21/21 05:09: Glucometer 82 11/21/21 11:16: Glucometer 147 11/21/21 15:43: Glucometer 116 11/21/21 20:18: Glucometer 177 11/22/21 06:23: White Blood Count 2.8, Red Blood Count 3.04, Hemoglobin 8.7, Hematocrit 28, Mean Corpuscular Volume 91, Mean Corpuscular Hemoglobin 29, Mean Corpuscular Hemoglobin Concent 31, Red Cell Distribution Width 16.9, Platelet Count 180, Mean Platelet Volume 10.9, Immature Granulocyte % (Auto) 0, Neutrophils (%) (Auto) 43, Lymphocytes (%) (Auto) 39, Monocytes (%) (Auto) 10, Eosinophils (%) (Auto) 7, Basophils (%) (Auto) 1, Neutrophils # (Auto) 1.2, Lymphocytes # (Auto) 1.1, Monocytes # (Auto) 0.3, Eosinophils # (Auto) 0.2, Basophils # (Auto) 0.0, Immature Granulocyte # (Auto) 0.0, Sodium Level 138, Potassium Level 4.1, Chloride Level 112, Carbon Dioxide Level 19, Anion Gap 7, Blood Urea Nitrogen 11, Creatinine 0.85, Estimat Glomerular Filtration Rate 71, BUN/Creatinine Ratio 13, Glucose Level 84, Calcium Level 6.9, Corrected Calcium 8.3, Total Bilirubin 0.4, Aspartate Amino Transf (AST/SGOT) 29, Alanine Aminotransferase (ALT/SGPT) 20, Alkaline Phosphatase 81, Total Protein 5.3, Albumin 2.3 11/22/21 10:50: Glucometer 120 11/22/21 15:41: Glucometer 115 11/22/21 20:23: Glucometer 165 11/23/21 05:44: Glucometer 87 11/23/21 10:58: Glucometer 147 11/23/21 15:41: Glucometer 134 11/23/21 20:24: Glucometer 144 11/24/21 05:00: Sodium Level 138, Potassium Level 4.6, Chloride Level 108, Carbon Dioxide Level 19, Anion Gap 11, Blood Urea Nitrogen 15, Creatinine 0.88, Estimat Glomerular Filtration Rate 68, BUN/Creatinine Ratio 17, Glucose Level 93, Calcium Level 7.7 11/24/21 11:19: Glucometer 135 11/24/21 15:29: Glucometer 130 11/24/21 20:10: Glucometer 124 11/25/21 05:22: Glucometer 96 11/25/21 10:46: Glucometer 123 11/25/21 15:26: Glucometer 189 11/25/21 20:17: Glucometer 91 11/26/21 05:32: Glucometer 96 Discharge Home Medications: Active Scripts Active Furosemide 40 Mg Tablet 40 Mg PO DAILY Klor-Con M20 (Potassium Chloride) 20 Meq Tab.er.prt 20 Meq PO DAILY@0700 Children's Aspirin (Aspirin) 81 Mg Tab.chew 81 Mg PO DAILY Spironolactone 25 Mg Tablet 25 Mg PO DAILY Entresto 24 mg-26 mg Tablet (Sacubitril/Valsartan) 24 Mg-26 Mg Tablet 1 Tab PO BID Carvedilol 3.125 Mg Tablet 3.125 Mg PO BID WITH MEALS Lipitor (Atorvastatin Calcium) 40 Mg Tablet 40 Mg PO 1700 Reported Levothyroxine Sodium 150 Mcg Tablet 150 Mcg PO DAILY Tylenol Arthritis (Acetaminophen) 650 Mg Tablet.er 650 Mg PO Q6H PRN Vitamin D3 (Cholecalciferol (Vitamin D3)) 25 Mcg (1000 Unit) Capsule 25 Mcg PO DAILY Timolol Maleate 0.5% (Timolol Maleate) 0.5 % Drops 1 Drop OU HS Oxybutynin Chloride 5 Mg Tablet 5 Mg PO BID Xalatan (Latanoprost) 0.005 % Drops 1 Drop OU HS Famotidine 20 Mg Tablet 20 Mg PO DAILY Iron (Ferrous Sulfate) 325 Mg Tablet 325 Mg PO BID Leflunomide 20 Mg Tablet 20 Mg PO Q48H Amitriptyline HCl 100 Mg Tablet 100 Mg PO HS Fenofibrate 160 Mg Tablet 160 Mg PO HS Cetirizine HCl 10 Mg Tablet 10 Mg PO DAILY Instructions to patient/family Please see electronic discharge instructions given to patient. 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
[2021-11-26] MEDS: inSUlin ASPART (NovoLOG) 1 UNIT/0.01 ML (CHARGE PER UNIT) SC SCH (05:33)
[2021-11-26] MEDS: CATHETER FLUSH 10 ML SYR IVP SCH (05:33)
[2021-11-26] MEDS: KCL 20 MEQ TAB (K-DUR) PO SCH (05:34)
[2021-11-26 07:09] VITALS: BP 98/65
[2021-11-26] MEDS: CALCIUM CARBONATE 500 MG (TUMS) TAB.CHEW PO SCH (08:12)
[2021-11-26] MEDS: FUROSEMIDE 40 MG (LASIX) TAB PO SCH (08:12)
[2021-11-26] MEDS: ASPIRIN 81 MG CHEW (CHILDREN'S ASA) PO SCH (08:12)
[2021-11-26] MEDS: LOPERAMIDE 2 MG (IMODIUM) TABLET PO PRN (08:12)
[2021-11-26] MEDS: VITAMIN D3 125 MCG (5,000 UNITS) CAPSULE PO SCH (08:12)
[2021-11-26] MEDS: SPIRONOLACTONE 25 MG (ALDACTONE) TAB PO SCH (08:13)
[2021-11-26] MEDS: PREPARATION H OINTMENT 57 GR TUBE PR PRN (08:15)
[2021-11-26 08:20] VITALS: BP 117/74
[2021-11-26] MEDS: SACUBITRIL/VALSARTAN 24/26 MG (ENTRESTO) TABLET PO SCH (08:22)
--- NOTE | 2021-11-26 08:47 | Progress Note - Surgery ---
LUZMA KLINE 11/26/21 0847: Subjective Date Seen by a Provider: Nov 26, 2021 Time Seen by a Provider: 08:01 Subjective/Events-last exam Ms. Garcia is being followed for a drain that was placed in her ventral abdomen. It was pulled 8 days ago. 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 She says she changed her own bag last night and it had a small amount of output that looked like chocolate milk. She threw away the bag before it could be measured.. She is working with PT. She had nasuea and vomiting this morning. She is going home today at 1000. Review of Systems General: No Chills, No Fatigue HEENT: No Head Aches, No Visual Changes Pulmonary: No Dyspnea, No Cough Cardiovascular: No: Chest Pain, Palpitations Gastrointestinal: Nausea, Vomiting, Abdominal Pain Neurological: No: Weakness, Confusion Objective Exam Vital Signs Date Time Temp Pulse Resp B/P (MAP) Pulse Ox O2 Delivery O2 Flow Rate FiO2 11/26/21 08:20 92 117/74 (88) 11/26/21 07:09 36.5 94 18 98/65 (76) 99 Room Air 11/25/21 20:47 Room Air 11/25/21 20:22 36.7 89 18 113/73 (86) 100 Room Air I & O 11/26/21 07:00 Intake Total 940 ml Output Total 0 ml Balance 940 ml Capillary Refill : General Appearance: No Apparent Distress, WD/WN, Chronically ill, Thin HEENT: PERRL/EOMI, Moist Mucous Membranes Neck: Non Tender, Supple Respiratory: Chest Non Tender, Lungs Clear, Normal Breath Sounds, No Accessory Muscle Use, No Respiratory Distress Cardiovascular: Regular Rate, Rhythm, No Edema, Normal Peripheral Pulses Peripheral Pulses: 2+ Radial Pulses (R), 2+ Radial Pulses (L) Gastrointestinal: soft; No distended, No guarding, No rebound; tenderness (Around fistula), other (Ostomy bag covering fistula) Extremity: Non Tender, No Pedal Edema Neurologic/Psychiatric: Alert, Oriented x3, 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 Skin: Normal Color, Warm/Dry Results Lab Laboratory Tests 11/25/21 10:46: Glucometer 123H 11/25/21 15:26: Glucometer 189H 11/25/21 20:17: Glucometer 91 11/26/21 05:32: Glucometer 96 Assessment/Plan Assessment/Plan Assessment/Plan Enterocutaneous Fistula Weakness COVID Malnutrition Removed the drain 8 days ago will monitor fistula output. Small output that was not measured. Likely a low-output fistula. Will monitor and see if this continues to decrease on its own, still may need to discuss NPO and TPN. Pt encouraged to take her protein shakes TID to help with nutrition, Pt encour ed to ambulate and work with PT Home today Outpatient f/u YADIRA LONDON DO 11/26/21 1205: Supervisory-Addendum Brief Verification & Attestation Participated in pt care: other (Pt left before I could see her today) Personally performed: other (Pt left before I could see her today) Care discussed with: Medical Student Procedures: n/a Pt left before I could see her today LUZMA KLINE Nov 26, 2021 08:47 YADIRA LONDON DO Nov 26, 2021 12:05
--- NOTE | 2021-11-26 08:52 | Cardiology Progress Note ---
Progress Note-Cardiology Events since last exam Date Seen by Provider: Nov 26, 2021 Time Seen by Provider: 08:51 Events since last exam I am following her due to heart failure and cardiomyopathy. She had previously been following with Dr. Gaviria but not in a number of years. She is planning to be discharged from inpatient rehab later this morning. Her breathing is much improved. She denies chest discomfort, palpitations, syncope, or ankle edema. Certain portions of this document may have been dictated utilizing voice recognition technology. Inherent to this technology, typographical and grammatical errors may exist. As much as I am diligent to identify and correct these mistakes, some errors may remain in the document. Vitals Last set of Vitals Signs Vital Signs 11/26/21 11:10 Temp 36.5 Pulse 92 Resp 18 B/P (MAP) 117/74 Pulse Ox 99 O2 Delivery Room Air Exam Vital Signs Vital Signs Date Time Temp Pulse Resp B/P (MAP) Pulse Ox O2 Delivery O2 Flow Rate FiO2 11/26/21 11:10 36.5 92 18 117/74 99 Room Air Physical Exam Due to the patient's COVID status, I spoke with the patient from the doorway. General: The patient is not on a ventilator. HENT: Normocephalic. Atraumatic. Skin: There is no pallor. Neurologic: Oriented x3. Cranial nerves III through XII grossly intact. Moving all 4 extremities. Psychiatric: Appears cooperative. Labs Laboratory Tests Test 11/25/21 15:26 11/25/21 20:17 11/26/21 05:32 Range/Units Glucometer 189 H 91 96 70-110 MG/DL Diagnosis/Problems Diagnosis/Problems (1) Acute heart failure with reduced ejection fraction and diastolic dysfunction Assessment & Plan: Symptomatically improved. She is on carvedilol, Entresto and spironolactone. At some point, she may need an ischemic evaluation but we will wait until she recovers from the COVID infection for pursuing this further. This can be arranged following discharge. From a cardiac standpoint, she can be discharged home today. (2) Cardiomyopathy Assessment & Plan: Her most recent previous echocardiogram from 2020 showed mild left ventricular systolic dysfunction. Now she has severe left ventricular systolic dysfunction. She may need an ischemic evaluation once she recovers from her COVID. We will continue the present guideline directed medical therapy. She has been fitted and instructed on the use of LifeVest and she needs to be discharged with this equipment. (3) Primary hypertension Assessment & Plan: Blood pressure is reasonably controlled with the present combination of medications. If anything, at times she is running on the low side. (4) Mixed hyperlipidemia Assessment & Plan: It appears as though she may have been on both atorvastatin and fenofibrate at home. I resumed the atorvastatin. I will hold off on restarting fenofibrate due to her acute debility with potentially increased risk for medication interactions between the atorvastatin and fenofibrate. GABE COOPER JR, MD Nov 26, 2021 08:52
[2021-11-26] MEDS: DOCUSATE SODIUM 100 MG (COLACE) CAP PO SCH (08:54)
[2021-11-26] MEDS: polyethylene glycoL POWDER 17 GM (MIRALAX) PACK PO SCH (08:55)
[2021-11-26] MEDS: SENNA W/DOCUSATE (SENOKOT S) TABLET PO SCH (08:55)
[2021-11-26] MEDS: SENNOSIDES 8.6 MG (SENOKOT) TAB PO SCH (08:56)
[2021-11-26] MEDS: ONDANSETRON 4 MG (ZOFRAN) ORAL DISSOLVE TAB PO PRN (09:27)
--- NOTE | 2021-11-26 10:32 | Therapy Team Discharge Summary ---
Therapy Discharge Summary Discharge Recommendations Date of Discharge Therapy D/C Recommendations: Home Independently Physical Therapy Roll Left to Right (QC): 6 Sit to Lying (QC): 6 Lying to Sitting/Side of Bed(Q: 6 Sit to Stand (QC): 6 Chair/[id number] Xfer(QC): 6 Toilet Transfer (QC): 5 Car Transfer (QC): 6 Does the Patient Walk: Yes Mode of Locomotion: Walk Anticipated Mode of Locomotion: Walk Walk 10 feet (QC): 6 Walk 50 ft with 2 Turns(QC): 6 Walk 150 ft (QC): 88 Walking 10ft on uneven surface: 6 Distance: 50'x3 Gait Assistive Device: FWW Does the Pt Use a Wheelchair: No Wheel 50 ft with 2 turns (QC): 9 Wheel 150 ft (QC): 9 #of Steps: 3 1 Step (curb) (QC): 6 4 Steps (QC): 7 12 Steps (QC): 7 Walking Assistive Device: Walker Balance Sitting Static: Normal Balance Sitting Dynamic: Normal Balance-Standing Static: Fair Picking up an Object (QC): 6 Occupational Therapy Pt admitted to [facility] with Covid debility. At time of evaluation, she was SBA-CGA for toileting, footwear, lower body dressing, upper body dressing, bathing, and oral care and set up for eating. During her rehab stay OT focused on endurance, standing tolerance, strengthening, energy conservation strategies, and safety in order to improve performance and independence in adls and functional mobility. 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 See below for current levels of assist. Pt will be discharging from this facility today and will be discharge from OT at this time. Decreased Activ Tolerance, Decreased UE Strength Eating (QC): 6 Oral Hygiene (QC): 6 Shower/Bathe Self (QC): 6 Upper Body Dressing (QC): 6 Lower Body Dressing (QC): 6 On/Off Footwear (QC): 6 Toileting Hygiene (QC): 6 (Pt is getting up and completing toileting independently throughout day.) PT Residential Goals Internal Investigator Goals PT Residential Goals Time Frame: Dec 09, 2021 Roll Left to Right (QC): 6 Sit to Lying (QC): 6 Lying-Sitting on Side/Bed(QC): 6 Sit to Stand (QC): 6 Chair/[id number]-Quxsr Xfer(QC): 6 Car Transfer (QC): 6 Does the Patient Walk: Yes Walk 10 feet (QC): 6 Walk 10ft-Uneven Surface(QC): 6 Walk 50ft with 2 Turns (QC): 6 Walk 150 ft (QC): 6 Wheel 50 feet with 2 turns (QC: 9 1 Step (curb) (QC): 6 4 Steps (QC): 6 12 Steps (QC): 88 Picking up an Object (QC): 6 OT Residential Goals Residential Goals Time Frame: Dec 02, 2021 Eating (QC): 6 (met) Oral Hygiene (QC): 6 (met) Shower/Bathe Self (QC): 6 (met) Upper Body Dressing (QC): 6 (met) Lower Body Dressing (QC): 6 (met) On/Off Footwear (QC): 6 (met) Toileting Hygiene (QC): 6 (met) Toilet/Commode Transfer (QC): 6 (met) 1=Demonstrate adherence to instructed precautions during ADL tasks. 2=Patient will verbalize/demonstrate understanding of assistive devices/modifications for ADL. 3=Patient will improve strength/tolerance for activity to enable patient to perform ADL's. Speech Residential Goals Residential Goals 1. The patient will improve her cognitive linguistic skills for safe discharge to the least restrictive environment. MET: The patient has met speech pathology goals placed at admission and has displayed excellent progression with cognitive skills. Per patient, "I think the infection just made everything more difficult. Time Frame: Two Weeks. Neli De Paz OT Nov 26, 2021 10:32
--- NOTE | 2021-11-26 10:37 | Therapy Team Discharge Summary ---
Therapy Discharge Summary Discharge Recommendations Date of Discharge Physical Therapy Patient came to rehab with covid 19 debility. Upon evaluation patient performs rolling and supine <-> sit with independence, sit <-> stand min assist, transfers CGA, car transfer CGA, ambulate 50' with a rolling walker with CGA ( including 50' with at least 2 turns of 90 degrees), can go up and down 1 step using a rolling walker with CGA. Patient has been performing bed mobility and transfer training, balance and endurance training, functional strengthening, stair training, gait training, and education. Patient has made fair progress but has not met her group home goals for distance of ambulation and number of stairs. Now, patient performs rolling and supine <-> sit with independence, sit <-> stand and transfers independent, ambulates 50' with a rolling walker with independence (including 50' with at least 2 turns of 90 degrees and 10' over an uneven surface), can go up and down 3 steps using a rolling walker with independence, and can berry picker machine operator an object from the floor with independence. Patient is being discharged from this facility today and will be discharged from PT at this time. Roll Left to Right (QC): 6 Sit to Lying (QC): 6 Lying to Sitting/Side of Bed(Q: 6 Sit to Stand (QC): 6 Chair/Dfg-sf-Mfvdl Xfer(QC): 6 Toilet Transfer (QC): 5 Car Transfer (QC): 6 Does the Patient Walk: Yes Mode of Locomotion: Walk Anticipated Mode of Locomotion: Walk Walk 10 feet (QC): 6 Walk 50 ft with 2 Turns(QC): 6 Walk 150 ft (QC): 88 Walking 10ft on uneven surface: 6 Distance: 50'x3 Gait Assistive Device: FWW Does the Pt Use a Wheelchair: No Wheel 50 ft with 2 turns (QC): 9 Wheel 150 ft (QC): 9 #of Steps: 3 1 Step (curb) (QC): 6 4 Steps (QC): 7 12 Steps (QC): 7 Walking Assistive Device: Walker Balance Sitting Static: Normal Balance Sitting Dynamic: Normal Balance-Standing Static: Fair Picking up an Object (QC): 6 Occupational Therapy Decreased Activ Tolerance, Decreased UE Strength Eating (QC): 6 Oral Hygiene (QC): 6 Shower/Bathe Self (QC): 6 Upper Body Dressing (QC): 6 Lower Body Dressing (QC): 6 On/Off Footwear (QC): 6 Toileting Hygiene (QC): 6 (Pt is getting up and completing toileting independently throughout day.) PT Jail Goals Loan Assistant Goals PT Loan Assistant Goals Time Frame: Dec 09, 2021 Roll Left to Right (QC): 6 Sit to Lying (QC): 6 Lying-Sitting on Side/Bed(QC): 6 Sit to Stand (QC): 6 Chair/Pao-ws-Iobhc Xfer(QC): 6 Car Transfer (QC): 6 Does the Patient Walk: Yes Walk 10 feet (QC): 6 Walk 10ft-Uneven Surface(QC): 6 Walk 50ft with 2 Turns (QC): 6 Walk 150 ft (QC): 6 Wheel 50 feet with 2 turns (QC: 9 1 Step (curb) (QC): 6 4 Steps (QC): 6 12 Steps (QC): 88 Picking up an Object (QC): 6 OT Jail Goals Loan Assistant Goals Time Frame: Dec 02, 2021 Eating (QC): 6 (met) Oral Hygiene (QC): 6 (met) Shower/Bathe Self (QC): 6 (met) Upper Body Dressing (QC): 6 (met) Lower Body Dressing (QC): 6 (met) On/Off Footwear (QC): 6 (met) Toileting Hygiene (QC): 6 (met) Toilet/Commode Transfer (QC): 6 1=Demonstrate adherence to instructed precautions during ADL tasks. 2=Patient will verbalize/demonstrate understanding of assistive devices/modifications for ADL. 3=Patient will improve strength/tolerance for activity to enable patient to perf orm ADL's. Speech Jail Goals Loan Assistant Goals 1. The patient will improve her cognitive linguistic skills for safe discharge to the least restrictive environment. MET: The patient has met speech pathology goals placed at admission and has displayed excellent progression with cognitive skills. Per patient, "I think the infection just made everything more difficult. Time Frame: Two Weeks. RANI DUMONT PT Nov 26, 2021 10:37
[2021-11-26 11:10] VITALS: BP 117/74
== END 2021-11-26 11:10 | disposition home health service (06) | DRG 91 ==
PROVIDERS: ADMIT Internal Medicine; ATTEND Internal Medicine
PROC: 8E0ZXY6 Isolation (ICD-10-PCS; principal; 2021-11-18)
DX: G72.89 Other specified myopathies (principal); I50.41 Acute combined systolic (congestive) and diastolic (congestive) heart failure; E46 Unspecified protein-calorie malnutrition; Z68.1 Body mass index [BMI] 19.9 or less, adult; K63.2 Fistula of intestine; I42.9 Cardiomyopathy, unspecified; I13.0 Hypertensive heart and chronic kidney disease with heart failure and stage 1 through stage 4 chronic kidney disease, or unspecified chronic kidney disease; U09.9 Post COVID-19 condition, unspecified; I48.91 Unspecified atrial fibrillation; E78.2 Mixed hyperlipidemia; E11.22 Type 2 diabetes mellitus with diabetic chronic kidney disease; N18.31 Chronic kidney disease, stage 3a; E03.9 Hypothyroidism, unspecified; K21.9 Gastro-esophageal reflux disease without esophagitis; M06.9 Rheumatoid arthritis, unspecified; M19.91 Primary osteoarthritis, unspecified site; Z87.891 Personal history of nicotine dependence; Z90.5 Acquired absence of kidney; Z85.43 Personal history of malignant neoplasm of ovary; Z82.61 Family history of arthritis; Z83.3 Family history of diabetes mellitus; Z82.49 Family history of ischemic heart disease and other diseases of the circulatory system; Z88.0 Allergy status to penicillin
CPT/HCPCS: 36415; 80048; 80053; 82947; 85025

== ENCOUNTER → 2021-12-06 | Outpatient (CLI) | payer MEDICARE ==
[~2021-12-06] MED LIST changes: +ASPI81TA64 PO; +ATOR40TA PO; +CARV3.122 PO; +FURO40TA4 PO; +LEVO150T6 PO; +POTA-169 PO; +SACU1TAB2 PO; +SPIR25TA5 PO
== END ==
LOC: WOUNDCARE 13:10
PROVIDERS: ATTEND Family Medicine
DX: K63.2 Fistula of intestine (principal); I95.2 Hypotension due to drugs; D46.4 Refractory anemia, unspecified; D70.9 Neutropenia, unspecified; E43 Unspecified severe protein-calorie malnutrition
CPT/HCPCS: 99212

== ENCOUNTER 2021-12-13 16:35 | Inpatient (IN) | payer MEDICARE ==
[~2021-12-13] VITALS: Ht 157.5 cm; Wt 54.0 kg
[2021-12-13] MEDS ORDERED: LACTATED RINGERS 1,000 ML IV ONE (16:53)
[2021-12-13] MEDS ORDERED: LACTATED RINGERS 1,000 ML IV SCH ×2 (17:15→18:00)
--- NOTE | 2021-12-13 17:17 | ED General ---
General Chief Complaint: General Problems/Pain Stated Complaint: WEAKNESS,DIARRHEA Source of Information: Patient Exam Limitations: No Limitations History of Present Illness Date Seen by Provider: Dec 13, 2021 Time Seen by Provider: 17:15 Initial Comments To ER with general weakness and diarrhea watery and 3-4 episodes in total. She arrives by [facility]. Symptoms present for 1 to 2 days. She just got out of [facility] about 2 weeks ago. She states that she had an infection in her abdomen treated with a drain that they have subsequently removed and she is on a couple of antibiotics. Timing/Duration: 1-2 Days Severity: Moderate Associated Systoms: Nausea/Vomiting Allergies and Home Medications Allergies Coded Allergies: Penicillins (Verified Allergy, Unknown, 08/20/20) raspberry (Verified Allergy, Unknown, 08/20/20) Patient Home Medication List Home Medication List Reviewed: Yes Acetaminophen (Tylenol Arthritis) 650 Mg Tablet.er, 650 MG PO Q6H PRN for PAIN- MILD (1-4) OR TEMPATURE, (Reported) Entered as Reported by: CHAZ HARDING on 11/12/21 1145 Amitriptyline HCl (Amitriptyline HCl) 100 Mg Tablet, 100 MG PO HS, (Reported) Entered as Reported by: CHAZ HARDING on 03/03/20 1433 Aspirin (Children's Aspirin) 81 Mg Tab.chew, 81 MG PO DAILY Prescribed by: LORENZO MIMS on 11/25/212133 Atorvastatin Calcium (Lipitor) 40 Mg Tablet, 40 MG PO 1700 Prescribed by: LORENZO MIMS on 11/25/212133 Carvedilol (Carvedilol) 3.125 Mg Tablet, 3.125 MG PO BID WITH MEALS Prescribed by: LORENZO MIMS on 11/25/212133 Cetirizine HCl (Cetirizine HCl) 10 Mg Tablet, 10 MG PO DAILY, (Reported) Entered as Reported by: CHAZ HARDING on 02/28/20 1109 Cholecalciferol (Vitamin D3) (Vitamin D3) 25 Mcg (1000 Unit) Capsule, 25 MCG PO DAILY, (Reported) Entered as Reported by: CHAZ HARDING on 11/12/21 1145 Famotidine (Famotidine) 20 Mg Tablet, 20 MG PO DAILY, (Reported) Entered as Reported by: CHAZ HARDING on 11/12/21 114 Fenofibrate (Fenofibrate) 160 Mg Tablet, 160 MG PO HS, (Reported) Entered as Reported by: CHAZ HARDING on 03/03/20 1433 Ferrous Sulfate (Iron) 325 Mg Tablet, 325 MG PO BID, (Reported) Entered as Reported by: CHAZ HARDING on 03/04/20 1256 Furosemide (Furosemide) 40 Mg Tablet, 40 MG PO DAILY Prescribed by: LORENZO MIMS on 11/25/212133 Latanoprost (Xalatan) 0.005 % Drops, 1 DROP OU HS, (Reported) Entered as Reported by: CHAZ HARDING on 11/12/21 114 Leflunomide (Leflunomide) 20 Mg Tablet, 20 MG PO Q48H, (Reported) Entered as Reported by: CHAZ HARDING on 03/03/20 143 Levothyroxine Sodium (Levothyroxine Sodium) 150 Mcg Tablet, 150 MCG PO DAILY, (Reported) Entered as Reported by: CHAZ HARDING on 11/25/21 1312 Oxybutynin Chloride (Oxybutynin Chloride) 5 Mg Tablet, 5 MG PO BID, (Reported) Entered as Reported by: CHAZ HARDING on 11/12/21 114 Potassium Chloride (Klor-Con M20) 20 Meq Tab.er.prt, 20 MEQ PO DAILY@0700 Prescribed by: LORENZO MIMS on 11/25/212133 Sacubitril/Valsartan (Entresto 24 mg-26 mg Tablet) 24 Mg-26 Mg Tablet, 1 TAB PO BID Prescribed by: LORENZO MIMS on 11/25/212133 Spironolactone (Spironolactone) 25 Mg Tablet, 25 MG PO DAILY Prescribed by: LORENZO MIMS on 11/25/212133 Timolol Maleate (Timolol Maleate 0.5%) 0.5 % Drops, 1 DROP OU HS, (Reported) Entered as Reported by: CHAZ HARDING on 11/12/21 114 Review of Systems Review of Systems Constitutional: see HPI EENTM: see HPI Respiratory: no symptoms reported Cardiovascular: no symptoms reported Genitourinary: no symptoms reported Musculoskeletal: no symptoms reported Skin: no symptoms reported Psychiatric/Neurological: No Symptoms Reported Hematologic/Lymphatic: No Symptoms Reported Past Jmjpdym-Slvmyd-Hhicyc Hx Immunizations Up To Date First/Initial COVID19 Vaccinat: 2020 Second COVID19 Vaccination [place]: 2020 Third COVID19 Vaccination Date: 2020 Seasonal Allergies Seasonal Allergies: No Past Medical History Surgery/Hospitalization HX: C-DIFF, MULTIPLE ABD SURGERY,. SURGERY. TAILBONE REMOVED. 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, Menopausal Sexually Transmitted Disease: No HIV/AIDS: No Genitourinary: Yes (HAS ONLY 1 KIDNEY (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 HAD REMOVED CAUSE BLOOD VESSELS WRAPPED ) Bladder Infection Gastrointestinal: Yes (PERMANENT ILEOSTOMY/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/2019;[place]) Colitis, Gastroesophageal Reflux, Liver Disease/Jaundice, C-Diff, Gall Bladder Disease Musculoskeletal: Yes (RA/OSTEOARTHRITIS) Arthritis, Rheumatoid Arthritis Endocrine: Yes Hypothyroidsim, Diabetes, Non-Insulin dep HEENT: No Cancer: Yes Ovarian Did You Recieve Any Treatments: Yes What Type of Treatment Did You: Surgical Intervention Psychosocial: No Integumentary: Yes (DELAYED HEALING OF SURGICAL WOUND; PERISTOMAL SKIN BREAKDOWN) Blood Disorders: No Adverse Reaction/Blood Tranf: No Family Medical History Arthritis 19 MOTHER Cardiovascular disease 19 MOTHER Diabetes mellitus 19 FATHER 19 MOTHER No Pertinent Family Hx PAST MEDICAL /SURGICAL HISTORY: -12/2019--HAD SEVERE C. DIFFICILE COLITIS--ADMITTED TO [facility] 01/21/20. PT HAD SYNCOPAL EPISODE WITH LOSS OF PULSE AND CPR/RESUSCITATION FOR APPROXIMATELY 2 MINUTES WITH [facility]. DURING THAT STAY SHE HAD ATRIAL FIBRILLATION WITH [facility] THAT REQUIRED CARDIOVERSION PT UNDERWENT SUBTOTAL COLECTOMY WITH PERMANENT ILEOSTOMY. PT REPORTS THAT SHE WAS ON VENTILATOR FOR 10 DAYS PT WAS TRANSFERRED FROM [facility] TO [facility], AND WAS THERE FROM 02/08/20-02/28/20, THEN TRANSFERRED HERE FOR REHAB FROM 02/28/20-03/10/20. SEEING WOUND CARE FOR DELAYED HEALING OF MIDLINE SURGICAL WOUND AND SKIN BREAKDOWN AROUND STOMA. 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 JOE -SEBACEOUS CYST OF ABDOMINAL WALL REMOVED 05/[address] JOE -SUBTOTAL COLECTOMY WITH PERMANENT ILEOSTOMY 12/2019 AT [facility] BY DR. BRYANT Physical Exam Vital Signs Vital Signs - First Documented 12/13/21 16:35 Temp 37.5 Pulse 124 Resp 16 B/P (MAP) 92/60 (71) Pulse Ox 100 Capillary Refill : Height, Weight, BMI Height: '" Weight: lbs. oz. kg; 18.54 BMI Method:Stated General Appearance: No Apparent Distress, WD/WN, Thin (Very frail. On arrival heart rate 122 sinus, blood pressure consistently 70s over 40s. IV started) HEENT: PERRL/EOMI, TMs Normal Neck: Full Range of Motion, Normal Inspection Respiratory: No Accessory Muscle Use, No Respiratory Distress Cardiovascular: Regular Rate, Rhythm, Normal Peripheral Pulses Gastrointestinal: Normal Bowel Sounds, Non Tender, Soft Extremity: Normal Capillary Refill, Normal Inspection Neurologic/Psychiatric: Alert, Oriented x3 Skin: Normal Color, Warm/Dry Focused Exam Lactate Level 12/13/21 16:50: Lactic Acid Level 1.67 Lactic Acid Level Laboratory Tests Test 12/13/21 16:50 Lactic Acid Level 1.67 MMOL/L (0.50-2.00) Progress/Results/Core Measures Suspected Sepsis SIRS Temperature: Pulse: Respiratory Rate: Laboratory Tests 12/13/21 16:50: White Blood Count 30.7*H Blood Pressure / Mean: 12/13/21 16:50: Lactic Acid Level 1.67 Laboratory Tests 12/13/21 16:50: Creatinine 3.62H, Platelet Count 247, Total Bilirubin 0.7 Results/Orders Lab Results Laboratory Tests Test 12/13/21 16:50 12/13/21 18:29 Range/Units White Blood Count 30.7 *H 4.3-11.0 10^3/uL Red Blood Count 3.67 L 3.80-5.11 10^6/uL Hemoglobin 10.9 L 11.5-16.0 g/dL Hematocrit 33 L 35-52 % Mean Corpuscular Volume 91 80-99 fL Mean Corpuscular Hemoglobin 30 25-34 pg Mean Corpuscular Hemoglobin Concent 33 32-36 g/dL Red Cell Distribution Width 13.5 10.0-14.5 % Platelet Count 247 130-400 10^3/uL Mean Platelet Volume 11.9 9.0-12.2 fL Immature Granulocyte % (Auto) 2 % Neutrophils (%) (Auto) 92 H 42-75 % Lymphocytes (%) (Auto) 3 L 12-44 % Monocytes (%) (Auto) 3 0-12 % Eosinophils (%) (Auto) 0 0-10 % Basophils (%) (Auto) 0 0-10 % Neutrophils # (Auto) 28.2 H 1.8-7.8 10^3/uL Lymphocytes # (Auto) 1.0 1.0-4.0 10^3/uL Monocytes # (Auto) 0.9 0.0-1.0 10^3/uL Eosinophils # (Auto) 0.0 0.0-0.3 10^3/uL Basophils # (Auto) 0.1 0.0-0.1 10^3/uL Immature Granulocyte # (Auto) 0.5 H 0.0-0.1 10^3/uL Neutrophils % (Manual) 95 % Lymphocytes % (Manual) 4 % Monocytes % (Manual) 1 % Hypersegmented Neutrophils MODERATE Stomatocytes SLIGHT Elliptocytes SLIGHT Sodium Level 135 135-145 MMOL/L Potassium Level 4.9 3.6-5.0 MMOL/L Chloride Level 102 98-107 MMOL/L Carbon Dioxide Level 18 L 21-32 MMOL/L Anion Gap 15 H 5-14 MMOL/L Blood Urea Nitrogen 54 H 7-18 MG/DL Creatinine 3.62 H 0.60-1.30 MG/DL Estimat Glomerular Filtration Rate 13 BUN/Creatinine Ratio 15 Glucose Level 166 H 70-105 MG/DL Lactic Acid Level 1.67 0.50-2.00 MMOL/L Calcium Level 7.8 L 8.5-10.1 MG/DL Corrected Calcium 8.8 8.5-10.1 MG/DL Magnesium Level 1.4 L 1.6-2.4 MG/DL Total Bilirubin 0.7 0.1-1.0 MG/DL Aspartate Amino Transf (AST/SGOT) 13 5-34 U/L Alanine Aminotransferase (ALT/SGPT) 16 0-55 U/L Alkaline Phosphatase 64 40-136 U/L Total Protein 6.2 L 6.4-8.2 GM/DL Albumin 2.8 L 3.2-4.5 GM/DL Urine Color YELLOW Urine Clarity CLEAR Urine pH 5.0 5-9 Urine Specific [place] 1.020 1.016-1.022 Urine Protein NEGATIVE NEGATIVE Urine Glucose (UA) NEGATIVE NEGATIVE Urine Ketones NEGATIVE NEGATIVE Urine Nitrite NEGATIVE NEGATIVE Urine Bilirubin NEGATIVE NEGATIVE Urine Urobilinogen 0.2 < = 1.0 MG/DL Urine Leukocyte Esterase TRACE H NEGATIVE Urine RBC (Auto) NEGATIVE NEGATIVE Urine RBC NONE /HPF Urine WBC 2-5 /HPF Urine Squamous Epithelial Cells 2-5 /HPF Urine Crystals NONE /LPF Urine Bacteria TRACE /HPF Urine Casts PRESENT /LPF Urine Hyaline Casts 5-10 H /LPF Urine Mucus NEGATIVE /LPF Urine Culture Indicated YES My Orders Orders - JESS FISHER APRN Cbc With Automated Diff (12/13/21 16:47) Comprehensive Metabolic Panel (12/13/21 16:47) Magnesium (12/13/21 16:47) Ed Iv/Invasive Line Start (12/13/21 16:47) Lactated Ringers (Lr 1000 Ml Iv Solution (12/13/21 16:53) C Difficile Ag + Toxin A/B. (12/13/21 17:01) Blood Culture (12/13/21 17:01) Lactic Acid Analyzer (12/13/21 17:01) Ed Iv/Invasive Line Start (12/13/21 17:01) Lactated Ringers (Lr 1000 Ml Iv Solution (12/13/21 17:15) Ct Abdomen/Pelvis Wo (12/13/21 17:11) Ua Culture If Indicated (12/13/21 17:19) Chest 1 View, Ap/Pa Only (12/13/21 17:19) Manual Differential (12/13/21 16:50) Lactated Ringers (Lr 1000 Ml Iv Solution (12/13/21 18:00) Cefepime Injection (Maxipime Injection) (12/13/21 18:00) Metronidazole 500mg/100ml Ivpb (Flagyl 5 (12/13/21 18:00) Knapp Cath (12/13/21 18:03) Urine Culture (12/13/21 18:29) Medications Given in ED Current Medications Medications Dose Ordered Sig/Kay Route Start Time Stop Time Status Last Admin Dose Admin Cefepime HCl 1000 mg/Sodium Chloride 50 ml @ 100 mls/hr ONCE ONCE IV 12/13/21 18:00 12/13/21 18:29 DC 12/13/21 18:20 100 MLS/HR Metronidazole 100 ml @ 100 mls/hr ONCE ONCE IV 12/13/21 18:00 12/13/21 18:59 DC 12/13/21 18:59 100 MLS/HR Vital Signs/I&O 12/13/21 16:35 Temp 37.5 Pulse 124 Resp 16 B/P (MAP) 92/60 (71) Pulse Ox 100 Capillary Refill : Departure Communication (Admissions) She has received a 2 L LR bolus here in the emergency room. On arrival heart rate 122 blood pressure 70s. After the bolus her heart rate is down to 105 her blood pressure is up to 117/80. Oxygen 100% on room air. Respiratory rate is 12. I will collect a culture of the draining abdominal wound just inferior to the umbilicus. I will put her on cefepime and IV Flagyl to include anaerobic coverage until the cultures from this wound come back. I will put her on p.o. vancomycin for suspected C. difficile colitis. We will collect a stool sample a s soon as possible. She does wear a LifeVest started on 11/26/2021 for severe cardiomyopathy with reduced ejection fraction at 20 to 25% found on echocardiogram 11/13/2021. She does wish to remain full CODE STATUS. Spoke to Dr. Gresham, spoke with Dr. Ortega but Dr. Nieves is actually familiar with this patient. Ill write to consult him in the morning. NAME: NATHANIEL CAMARILLO [facility] REC#: [id number] PT STATUS: REG ER : 1945 PHYSICIAN: JESS FISHER APRN ADMIT DATE: 12/13/21/ER Draft Date of Exam:12/13/21 CT ABDOMEN/PELVIS WO PROCEDURE: CT abdomen and pelvis without contrast. TECHNIQUE: Multiple contiguous axial images were obtained through the abdomen and pelvis without the use of intravenous contrast. Auto Exposure Controls were utilized during the CT exam to meet ALARA standards for radiation dose reduction. INDICATION: Periumbilical abdominal pain COMPARISON: 11/17/2021 Unenhanced images of the liver and spleen reveal no focal abnormality. No pancreatic, adrenal gland or left renal abnormality is identified. Right kidney is absent. Gallbladder has been removed. There is fluid distention of colon with diffuse mural thickening. There is extensively thickened sigmoid colon and rectal arias. Surgical findings are seen in the anterior abdominal wall with small amount of gas and fluid along the midline incision site. Unenhanced urinary bladder is distended but otherwise unremarkable. IMPRESSION: Extensive mural thickening of the distal colon and rectum suggestive of proctocolitis. There is a small amount of fluid within the anterior abdominal wall incision site, however, no other focal fluid collection is seen to indicate abscess. Dictated on workstation # [id number] Dict: 12/13/21 1758 Trans: 12/13/21 1808 PENDING SALE TO [facility] [id number] Interpreted by: SUSANNE VILLEGAS MD Electronically signed by: Impression Primary Impression: Sepsis Additional Impressions: Proctocolitis Peritoneal fistula Disposition: ADMITTED INPATIENT Condition: Stable Admissions Decision to Admit Reason: Admit from ER (General) Decision to Admit/Date: Dec 13, 2021 Time/Decision to Admit Time: 18:13 Departure-Patient Inst. Referrals: SOLANGE TRIANA MD (PCP/Family) Primary Care Physician JESS FISHER APRN Dec 13, 2021 17:17
[2021-12-13 17:21] LABS: ALBUMIN 2.8 GM/DL (3.2-4.5)
[2021-12-13 17:22] LABS: POTASSIUM 4.9 MMOL/L (3.6-5.0)
[2021-12-13 17:23] LABS: CALCIUM 7.8 MG/DL (8.5-10.1)
[2021-12-13 17:24] LABS: TOTAL PROTEIN 6.2 GM/DL (6.4-8.2)
[2021-12-13 17:26] LABS: BASOPHILS # (AUTO) 0.1 10^3/uL (0.0-0.1); BASOPHILS % (AUTO) 0 % (0-10); BILIRUBIN,TOTAL 0.7 MG/DL (0.1-1.0); EOSINOPHILS % (AUTO) 0 % (0-10); HEMATOCRIT 33 % (35-52); HEMOGLOBIN 10.9 g/dL (11.5-16.0); LYMPHOCYTES % (AUTO) 3 % (12-44); MEAN CORPUSCULAR HEMOGLOBIN 30 pg (25-34); MEAN CORPUSCULAR HGB CONC 33 g/dL (32-36); MEAN CORPUSCULAR VOLUME 91 fL (80-99); MEAN PLATELET VOLUME 11.9 fL (9.0-12.2); MONOCYTES # (AUTO) 0.9 10^3/uL (0.0-1.0); MONOCYTES % (AUTO) 3 % (0-12); NEUTROPHILS # (AUTO) 28.2 10^3/uL (1.8-7.8); NEUTROPHILS % (AUTO) 92 % (42-75); PLATELET COUNT 247 10^3/uL (130-400)
[2021-12-13 17:27] LABS: WHITE BLOOD COUNT 30.7 10^3/uL (4.3-11.0)
[2021-12-13 17:28] LABS: CREATININE SERUM 3.62 MG/DL (0.60-1.30)
[2021-12-13 17:31] LABS: MAGNESIUM 1.4 MG/DL (1.6-2.4)
[2021-12-13 17:59] LABS: ELLIPT/OVALOCYTES SLIGHT; LYMPHOCYTES % (MANUAL) 4 %; MONOCYTES % (MANUAL) 1 %; NEUTROPHILS % (MANUAL) 95 %; STOMATOCYTES SLIGHT
[2021-12-13 18:00] LABS: HYPERSEGMENTED NEUT MODERATE
[2021-12-13] MEDS ORDERED: metroNIDAZOLE 500MG/100ML IVPB 100 ML IV ONE (18:00)
[2021-12-13] MEDS ORDERED: CEFEPIME INJECTION 1,000 MG in NS (IVPB) 50 ML IV ONE (18:00)
--- NOTE | 2021-12-13 18:09 | Diagnostic Imaging Report ---
PROCEDURE: CT abdomen and pelvis without contrast. TECHNIQUE: Multiple contiguous axial images were obtained through the abdomen and pelvis without the use of intravenous contrast. Auto Exposure Controls were utilized during the CT exam to meet ALARA standards for radiation dose reduction. INDICATION: Periumbilical abdominal pain COMPARISON: 11/17/2021 Unenhanced images of the liver and spleen reveal no focal abnormality. No pancreatic, adrenal gland or left renal abnormality is identified. Right kidney is absent. Gallbladder has been removed. There is fluid distention of colon with diffuse mural thickening. There is extensively thickened sigmoid colon and rectal arias. Surgical findings are seen in the anterior abdominal wall with small amount of gas and fluid along the midline incision site. Unenhanced urinary bladder is distended but otherwise unremarkable. IMPRESSION: Extensive mural thickening of the distal colon and rectum suggestive of proctocolitis. There is a small amount of fluid within the anterior abdominal wall incision site, however, no other focal fluid collection is seen to indicate abscess. Dictated by: Dictated on workstation # [id number]
[2021-12-13 18:34] LABS: BILIRUBIN,URINE NEGATIVE (NEGATIVE); CLARITY,URINE CLEAR; COLOR,URINE YELLOW; GLUCOSE, URINE (UA) NEGATIVE (NEGATIVE); KETONES,URINE NEGATIVE (NEGATIVE); LEUKOCYTE ESTERASE ,URINE TRACE (NEGATIVE); NITRITE,URINE NEGATIVE (NEGATIVE); PROTEIN,URINE NEGATIVE (NEGATIVE)
--- NOTE | 2021-12-13 18:42 | Diagnostic Imaging Report ---
INDICATION: Sepsis AP view of the chest is obtained with comparison made study of 11/15/2021. Heart size and pulmonary vascularity are within normal limits. There is mild air trapping bilaterally. No pneumothorax or consolidation is seen. There is no significant pleural fluid. IMPRESSION: Bilateral air trapping is likely due to emphysema. Otherwise, no acute abnormality is seen. Dictated by: Dictated on workstation # [id number]
[2021-12-13 18:50] LABS: BACTERIA,URINE TRACE /HPF
[2021-12-13 21:00] VITALS: BP 104/64
[2021-12-13 21:15] VITALS: BP 94/64
[2021-12-13 21:30] VITALS: BP 81/61
[2021-12-13 22:00] VITALS: BP 97/64
[2021-12-13] MEDS: LACTATED RINGERS 1,000 ML IV SCH (22:24)
[2021-12-13] MEDS ORDERED: fentaNYL INJ 100 MCG/2 ML AMP IV PRN (22:30)
[2021-12-13] MEDS ORDERED: ACETAMINOPHEN 325 MG TABLET PO PRN (22:30)
[2021-12-13] MEDS ORDERED: ONDANSETRON 4 MG/2 ML (SDV) Z0FRAN IV PRN (22:30)
[2021-12-13 23:15] VITALS: BP 117/73
[2021-12-13] MEDS: VANCOMYCIN 125 MG CAPSULE PO SCH (23:31)
[2021-12-14] VITALS (12 sets, daily range): BP systolic 96–122; BP diastolic 53–78
[2021-12-14] MEDS ORDERED: DEXTROSE 50% 50 ML (IMS) SYR ONE (00:41)
[2021-12-14] MEDS ORDERED: DEXTROSE 50% 50 ML (IMS) SYR IV ONE (00:45)
[2021-12-14] MEDS: metroNIDAZOLE 500 MG/100 ML IVPB (PRE-MIX) IV SCH ×3 (00:50→17:49)
[2021-12-14] MEDS: LACTATED RINGERS 1,000 ML IV SCH ×3 (02:09→23:14)
[2021-12-14 05:28] LABS: BASOPHILS # (AUTO) 0.1 10^3/uL (0.0-0.1); BASOPHILS % (AUTO) 0 % (0-10); EOSINOPHILS # (AUTO) 0.2 10^3/uL (0.0-0.3); EOSINOPHILS % (AUTO) 1 % (0-10); HEMATOCRIT 30 % (35-52); HEMOGLOBIN 10.1 g/dL (11.5-16.0); LYMPHOCYTES # (AUTO) 1.1 10^3/uL (1.0-4.0); LYMPHOCYTES % (AUTO) 4 % (12-44); MEAN CORPUSCULAR HEMOGLOBIN 30 pg (25-34); MEAN CORPUSCULAR HGB CONC 33 g/dL (32-36); MEAN CORPUSCULAR VOLUME 89 fL (80-99); MEAN PLATELET VOLUME 10.8 fL (9.0-12.2); MONOCYTES # (AUTO) 0.7 10^3/uL (0.0-1.0); MONOCYTES % (AUTO) 3 % (0-12); NEUTROPHILS # (AUTO) 21.9 10^3/uL (1.8-7.8); NEUTROPHILS % (AUTO) 89 % (42-75); PLATELET COUNT 212 10^3/uL (130-400); WHITE BLOOD COUNT 24.7 10^3/uL (4.3-11.0)
[2021-12-14] MEDS: VANCOMYCIN 125 MG CAPSULE PO SCH ×4 (05:30→23:15)
[2021-12-14 05:34] LABS: POTASSIUM 4.5 MMOL/L (3.6-5.0)
[2021-12-14 05:35] LABS: CALCIUM 7.2 MG/DL (8.5-10.1)
[2021-12-14 05:39] LABS: CREATININE SERUM 2.84 MG/DL (0.60-1.30)
[2021-12-14] MEDS ORDERED: CEFEPIME 1,000 MG/NS 50 ML IVPB IV SCH ×2 (06:00)
--- NOTE | 2021-12-14 08:54 | Consultation - Surgery ---
MARY FINN 12/14/21 0854: History of Present Illness History of Present Illness Patient Consulted On(argelia/time) 12/14/21 08:51 Date Seen by Provider: Dec 14, 2021 Time Seen by Provider: 08:51 History of Present Illness Consult requested by Dr. Gresham. Pt reports watery diarrhea for the last x 3 days. She also has general weakness and mild abdominal pain. Pt states 2 weeks ago she was seen at [facility] and was told she had "a mass growing 3 bacteria." She was started on abx. Pt has a hx of C. diff infection with iliostomy in 2019 and reversal of iliostomy in September 2020, by Dr. London. She has no fever. She does have chills, nausea and states she gets confused when her heart rate elevates. She denies blood in stool, Chest pain, SOB, vomiting. She had a nephrectomy at age 16. Allergies and Home Medications Allergies Coded Allergies: Penicillins (Verified Allergy, Unknown, 08/20/20) raspberry (Verified Allergy, Unknown, 08/20/20) Patient Home Medication List Acetaminophen (Tylenol Arthritis) 650 Mg Tablet.er, 650 MG PO Q6H PRN for PAIN- MILD (1-4) OR TEMPATURE, (Reported) Entered as Reported by: CHAZ HARDING on 11/12/21 1145 Amitriptyline HCl (Amitriptyline HCl) 100 Mg Tablet, 100 MG PO HS, (Reported) Entered as Reported by: CHAZ HARDING on 03/03/20 1433 Aspirin (Children's Aspirin) 81 Mg Tab.chew, 81 MG PO DAILY Prescribed by: LORENZO MIMS on 11/25/212133 Atorvastatin Calcium (Lipitor) 40 Mg Tablet, 40 MG PO 1700 Prescribed by: LORENZO MIMS on 11/25/212133 Carvedilol (Carvedilol) 3.125 Mg Tablet, 3.125 MG PO BID WITH MEALS Prescribed by: LORENZO MIMS on 11/25/212133 Cetirizine HCl (Cetirizine HCl) 10 Mg Tablet, 10 MG PO DAILY, (Reported) Entered as Reported by: CHAZ HARDING on 02/28/20 1109 Cholecalciferol (Vitamin D3) (Vitamin D3) 25 Mcg (1000 Unit) Capsule, 25 MCG PO DAILY, (Reported) Entered as Reported by: CHAZ HARDING on 11/12/21 114 Famotidine (Famotidine) 20 Mg Tablet, 20 MG PO DAILY, (Reported) Entered as Reported by: CHAZ HARDING on 11/12/21 114 Fenofibrate (Fenofibrate) 160 Mg Tablet, 160 MG PO HS, (Reported) Entered as Reported by: CHAZ HARDING on 03/03/20 1433 Ferrous Sulfate (Iron) 325 Mg Tablet, 325 MG PO BID, (Reported) Entered as Reported by: CHAZ HARDING on 03/04/20 1256 Furosemide (Furosemide) 40 Mg Tablet, 40 MG PO DAILY Prescribed by: LORENZO MIMS on 11/25/212133 Latanoprost (Xalatan) 0.005 % Drops, 1 DROP OU HS, (Reported) Entered as Reported by: CHAZ HARDING on 11/12/21 114 Leflunomide (Leflunomide) 20 Mg Tablet, 20 MG PO Q48H, (Reported) Entered as Reported by: CHAZ HARDING on 03/03/20 143 Levothyroxine Sodium (Levothyroxine Sodium) 150 Mcg Tablet, 150 MCG PO DAILY, (Reported) Entered as Reported by: CHAZ HARDING on 11/25/21 1312 Oxybutynin Chloride (Oxybutynin Chloride) 5 Mg Tablet, 5 MG PO BID, (Reported) Entered as Reported by: CHAZ HARDING on 11/12/21 114 Potassium Chloride (Klor-Con M20) 20 Meq Tab.er.prt, 20 MEQ PO DAILY@0700 Prescribed by: LORENZO MIMS on 11/25/212133 Sacubitril/Valsartan (Entresto 24 mg-26 mg Tablet) 24 Mg-26 Mg Tablet, 1 TAB PO BID Prescribed by: LORENZO MIMS on 11/25/212133 Spironolactone (Spironolactone) 25 Mg Tablet, 25 MG PO DAILY Prescribed by: LORENZO MIMS on 11/25/212133 Timolol Maleate (Timolol Maleate 0.5%) 0.5 % Drops, 1 DROP OU HS, (Reported) Entered as Reported by: CHAZ HARDING on 11/12/21 1145 Past Lqywbxq-Bzqowf-Nrrubz Hx Patient Social History Smoking Status: Never a Smoker Former Smoker, Quit: Jul 28, 1984 Type Used: Cigarettes 2nd Hand Smoke Exposure: No Recent Hopitalizations: No Alcohol Use?: No Have you traveled recently?: No Immunizations Up To Date Date of Pneumonia Vaccine: Feb 06, 2020 Date of Influenza Vaccine: Feb 05, 2020 Seasonal Allergies Seasonal Allergies: No Surgeries History of Surgeries: Yes (Abdominal, Bowel Surgery, Cardiac, Gallbladder, Hysterectomy, Nephrectomy, ) Surgeries: Bowel Surgery (iliostomy and iliostomy reversal), Cardiac, Gallbladder, Hysterectomy, Nephrectomy, Oophorectomy, Tonsillectomy Respiratory History of Respiratory Disorde: No Cardiovascular History of Cardiac Disorders: Yes (AFIB/RVR/CARDIOVERSION 12/2019; ) Cardiac Disorders: Atrial Fibrillation, High Cholesterol, Hypertension Neurological History of Neurological Disord: No Reproductive System Hx Reproductive Disorders: Yes (OVARIAN CANCER) Sexually Transmitted Disease: No HIV/AIDS: 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, 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 Genitourinary History of Genitourinary Disor: Yes (HAS ONLY 1 KIDNEY (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 HAD REMOVED CAUSE BLOOD VESSELS WRAPPED ) Genitourinary Disorders: Bladder Infection Gastrointestinal History of Gastrointestinal Di: Yes (PERMANENT ILEOSTOMY/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/2019;[facility]) Gastrointestinal Disorders: Colitis, Gastroesophageal Reflux, Liver Disease/Jaundice, C-Diff, Gall Bladder Disease Musculoskeletal History of Musculoskeletal Dis: Yes (RA/OSTEOARTHRITIS) Musculoskeletal Disorders: Arthritis, Rheumatoid Arthritis Endocrine History of Endocrine Disorders: Yes Endocrine Disorders: Hypothyroidsim, Diabetes, Non-Insulin dep HEENT History of HEENT Disorders: No Cancer History of Cancer: Yes Cancer: Ovarian Psychosocial History of Psychiatric Problem: No Integumentary History of Skin or Integumenta: Yes (DELAYED HEALING OF SURGICAL WOUND; PERISTOMAL SKIN BREAKDOWN) Blood Transfusions History of Blood Disorders: No Adverse Reaction to a Blood Tr: No Family Medical History Significant Family History: No Pertinent Family Hx, Diabetes, Hypertension Family Medial History: Arthritis 19 MOTHER Cardiovascular disease 19 MOTHER Diabetes mellitus 19 FATHER 19 MOTHER Review of Systems-General Constitutional: chills; No fever EENTM: No blurred vision, No double vision Respiratory: No cough, No short of breath Cardiovascular: No chest pain Gastrointestinal: abdominal pain (diffuse), diarrhea (watery ); No melena; nausea; No vomiting : No Skin: No change in color Psychiatric/Neurological: Denies Headache Physical Exam-General Problems Physical Exam Vital Signs Vital Signs - First Documented 12/13/21 12/13/21 16:35 20:43 Temp 37.5 Pulse 124 Resp 16 B/P (MAP) 92/60 (71) Pulse Ox 100 O2 Delivery Nasal Cannula O2 Flow Rate 2.00 Capillary Refill : General Appearance: no apparent distress, thin Eyes: Bilateral Eye PERRL, Bilateral Eye EOMI HEENT: pharynx normal Neck: non-tender, supple Respiratory: lungs clear, normal breath sounds, no respiratory distress, no accessory muscle use Cardiovascular: regular rate, rhythm, no gallop, no JVD, no murmur Peripheral Pulses: 2+ Radial Pulses (R), 2+ Radial Pulses (L) Gastrointestinal: normal bowel sounds, soft, tenderness (mild diffuse tenderness to palpation) Back: no CVA tenderness Extremities: no pedal edema, no calf tenderness Neurologic/Psychiatric: alert, oriented x 3 Skin: normal color, warm/dry Lymphatic: no adenopathy Data Review Labs Laboratory Tests 12/13/21 16:50: White Blood Count 30.7*H, Red Blood Count 3.67L, Hemoglobin 10.9L, Hematocrit 33L, Mean Corpuscular Volume 91, Mean Corpuscular Hemoglobin 30, Mean Corpuscular Hemoglobin Concent 33, Red Cell Distribution Width 13.5, Platelet Count 247, Mean Platelet Volume 11.9, Immature Granulocyte % (Auto) 2, Neutrophils (%) (Auto) 92H, Lymphocytes (%) (Auto) 3L, Monocytes (%) (Auto) 3, Eosinophils (%) (Auto) 0, Basophils (%) (Auto) 0, Neutrophils # (Auto) 28.2H, Lymphocytes # (Auto) 1.0, Monocytes # (Auto) 0.9, Eosinophils # (Auto) 0.0, Basophils # (Auto) 0.1, Immature Granulocyte # (Auto) 0.5H, Neutrophils % (Manual) 95, Lymphocytes % (Manual) 4, Monocytes % (Manual) 1, Hypersegmented Neutrophils MODERATE, Stomatocytes SLIGHT, Elliptocytes SLIGHT, Sodium Level 135, Potassium Level 4.9, Chloride Level 102, Carbon Dioxide Level 18L, Anion Gap 15H, Blood Urea Nitrogen 54H, Creatinine 3.62H, Estimat Glomerular Filtration Rate 13, BUN/Creatinine Ratio 15, Glucose Level 166H, Lactic Acid Level 1.67, Calcium Level 7.8L, Corrected Calcium 8.8, Magnesium Level 1.4L, Total Bilirubin 0.7, Aspartate Amino Transf (AST/SGOT) 13, Alanine Aminotransferase (ALT/SGPT) 16, Alkaline Phosphatase 64, Total Protein 6.2L, Albumin 2.8L 12/13/21 18:29: Urine Color YELLOW, Urine Clarity CLEAR, Urine pH 5.0, Urine Specific [place] 1.020, Urine Protein NEGATIVE, Urine Glucose (UA) NEGATIVE, Urine Ketones NEGATIVE, Urine Nitrite NEGATIVE, Urine Bilirubin NEGATIVE, Urine Urobilinogen 0.2, Urine Leukocyte Esterase TRACEH, Urine RBC (Auto) NEGATIVE, Urine RBC NONE, Urine WBC 2-5, Urine Squamous Epithelial Cells 2-5, Urine Crystals NONE, Urine Bacteria TRACE, Urine Casts PRESENT, Urine Hyaline Casts 5-10H, Urine Mucus NEGATIVE, Urine Culture Indicated YES 12/13/21 22:22: Glucometer 85 12/14/21 00:28: Glucometer 72 12/14/21 05:15: White Blood Count 24.7H, Red Blood Count 3.39L, Hemoglobin 10.1L, Hematocrit 30L , Mean Corpuscular Volume 89, Mean Corpuscular Hemoglobin 30, Mean Corpuscular Hemoglobin Concent 33, Red Cell Distribution Width 13.4, Platelet Count 212, Mean Platelet Volume 10.8, Immature Granulocyte % (Auto) 3, Neutrophils (%) (Auto) 89H, Lymphocytes (%) (Auto) 4L, Monocytes (%) (Auto) 3, Eosinophils (%) (Auto) 1, Basophils (%) (Auto) 0, Neutrophils # (Auto) 21.9H, Lymphocytes # (Auto) 1.1, Monocytes # (Auto) 0.7, Eosinophils # (Auto) 0.2, Basophils # (Auto) 0.1, Immature Granulocyte # (Auto) 0.8H, Sodium Level 133L, Potassium Level 4.5, Chloride Level 106, Carbon Dioxide Level 17L, Anion Gap 10, Blood Urea Nitrogen 48H, Creatinine 2.84#H, Estimat Glomerular Filtration Rate 17, BUN/Creatinine Ratio 17, Glucose Level 88, Calcium Level 7.2L Microbiology 12/13/21 C. difficile GDH Antigen & Toxins - Final, Complete Assessment/Plan Assessment/Plan Assessment/Plan Proctocolitis Low output fistula C.diff infection Hyponatremia CT shows thickening of colon wall, but no evidence of focal fluid collection or abscess. No surgical intervention at this time. IV fluids, vancomycin, and electrolyte replacement. Continue to monitor labs. YADIRA LONDON DO 12/14/21 1144: History of Present Illness History of Present Illness Time Seen by Provider: 11:05 History of Present Illness Surgery asked to consult regarding Colitis/Proctitis. HPI per ED: To ER with general weakness and diarrhea watery and 3-4 episodes in total. She arrives by [facility]. Symptoms present for 1 to 2 days. She just got out of [facility] about 2 weeks ago. She states that she had an infection in her abdomen treated with a drain that they have subsequently removed and she is on a couple of antibiotics. Pt is well known to me and has been recovering from fistula, which is low output now. States she did have drainage last night and new dressing placed. She has been on ABX recently and has hx of C. Diff. Allergies and Home Medications Allergies Coded Allergies: Penicillins (Verified Allergy, Unknown, 08/20/20) raspberry (Verified Allergy, Unknown, 08/20/20) Patient Home Medication List Home Medication List Reviewed: Yes Acetaminophen (Tylenol Arthritis) 650 Mg Tablet.er, 650 MG PO Q6H PRN for PAIN- MILD (1-4) OR TEMPATURE, (Reported) Entered as Reported by: CHAZ HARDING on 11/12/21 1145 Amitriptyline HCl (Amitriptyline HCl) 100 Mg Tablet, 100 MG PO HS, (Reported) Entered as Reported by: CHAZ HARDING on 03/03/20 1433 Aspirin (Children's Aspirin) 81 Mg Tab.chew, 81 MG PO DAILY Prescribed by: LORENZO MIMS on 11/25/212133 Atorvastatin Calcium (Lipitor) 40 Mg Tablet, 40 MG PO 1700 Prescribed by: LORENZO MIMS on 11/25/212133 Carvedilol (Carvedilol) 3.125 Mg Tablet, 3.125 MG PO BID WITH MEALS Prescribed by: LORENZO MIMS on 11/25/212133 Cetirizine HCl (Cetirizine HCl) 10 Mg Tablet, 10 MG PO DAILY, (Reported) Entered as Reported by: CHAZ HARDING on 02/28/20 1109 Cholecalciferol (Vitamin D3) (Vitamin D3) 25 Mcg (1000 Unit) Capsule, 25 MCG PO DAILY, (Reported) Entered as Reported by: CHAZ HARDING on 11/12/21 1145 Famotidine (Famotidine) 20 Mg Tablet, 20 MG PO DAILY, (Reported) Entered as Reported by: CHAZ HARDING on 11/12/21 1145 Fenofibrate (Fenofibrate) 160 Mg Tablet, 160 MG PO HS, (Reported) Entered as Reported by: CHAZ HARDING on 03/03/20 1433 Ferrous Sulfate (Iron) 325 Mg Tablet, 325 MG PO BID, (Reported) Entered as Reported by: CHAZ HARDING on 03/04/20 1256 Furosemide (Furosemide) 40 Mg Tablet, 40 MG PO DAILY Prescribed by: LORENZO MIMS on 11/25/212133 Latanoprost (Xalatan) 0.005 % Drops, 1 DROP OU HS, (Reported) Entered as Reported by: CHAZ HARDING on 11/12/21 1145 Leflunomide (Leflunomide) 20 Mg Tablet, 20 MG PO Q48H, (Reported) Entered as Reported by: CHAZ HARDING on 03/03/20 1434 Levothyroxine Sodium (Levothyroxine Sodium) 150 Mcg Tablet, 150 MCG PO DAILY, (Reported) Entered as Reported by: CHAZ HARDING on 11/25/21 1312 Oxybutynin Chloride (Oxybutynin Chloride) 5 Mg Tablet, 5 MG PO BID, (Reported) Entered as Reported by: CHAZ HARDING on 11/12/21 114 Potassium Chloride (Klor-Con M20) 20 Meq Tab.er.prt, 20 MEQ PO DAILY@0700 Prescribed by: LORENZO MIMS on 11/25/212133 Sacubitril/Valsartan (Entresto 24 mg-26 mg Tablet) 24 Mg-26 Mg Tablet, 1 TAB PO BID Prescribed by: LORENZO MIMS on 11/25/212133 Spironolactone (Spironolactone) 25 Mg Tablet, 25 MG PO DAILY Prescribed by: LORENZO MIMS on 11/25/212133 Timolol Maleate (Timolol Maleate 0.5%) 0.5 % Drops, 1 DROP OU HS, (Reported) Entered as Reported by: CHAZ HARDING on 11/12/21 1145 Past Unvmsiy-Ckaskp-Tdimzh Hx Patient Social History Smoking Status: Former Smoker Alcohol Use?: No Surgeries History of Surgeries: Yes Surgeries: Bowel Surgery (iliostomy and iliostomy reversal), Cardiac, Gallbladder, Hysterectomy, Nephrectomy, Oophorectomy, Tonsillectomy Respiratory History of Respiratory Disorde: No Cardiovascular History of Cardiac Disorders: Yes Cardiac Disorders: Atrial Fibrillation, High Cholesterol, Hypertension Neurological History of Neurological Disord: Yes Neurological Disorders: Neuropathy Genitourinary History of Genitourinary Disor: Yes (hx of nephrectomy) Genitourinary Disorders: UTI-Chronic Gastrointestinal History of Gastrointestinal Di: Yes Gastrointestinal Disorders: Obstructive Bowel, C-Diff Musculoskeletal History of Musculoskeletal Dis: Yes Musculoskeletal Disorders: Arthritis, Chronic Back Pain Endocrine History of Endocrine Disorders: Yes Endocrine Disorders: Diabetes, Insulin dep, Hypothyroidsim Cancer History of Cancer: Yes Cancer: Ovarian Psychosocial History of Psychiatric Problem: Yes Behavioral Health Disorders: Depression Integumentary History of Skin or Integumenta: No Family Medical History Significant Family History: Diabetes, Hypertension Family Medial History: Arthritis 19 MOTHER Cardiovascular disease 19 MOTHER Diabetes mellitus 19 FATHER 19 MOTHER Review of Systems-General Constitutional: chills; No fever; malaise, weakness EENTM: No blurred vision, No double vision Respiratory: No cough, No short of breath Cardiovascular: No chest pain; palpitations Gastrointestinal: abdominal pain (diffuse but mild, maybe more lower quadrants), diarrhea (watery ); No melena; nausea; No vomiting : No Skin: No change in color, No change in hair/nails Psychiatric/Neurological: Depressed; Denies Headache; Weakness Physical Exam-General Problems Physical Exam General Appearance: no apparent distress, cachetic, thin Eyes: Bilateral Eye PERRL, Bilateral Eye EOMI HEENT: pharynx normal; No scleral icterus (R), No scleral icterus (L) Neck: non-tender, supple Respiratory: lungs clear, normal breath sounds, no respiratory distress, no accessory muscle use Cardiovascular: regular rate, rhythm, no murmur Gastrointestinal: soft; No distended; tenderness (mild diffuse tenderness to palpation), other (has midline wound with scant drainage) Back: no CVA tenderness, no vertebral tenderness Extremities: no pedal edema, no calf tenderness Neurologic/Psychiatric: alert, oriented x 3 Skin: warm/dry, pallor Lymphatic: no adenopathy (neck, axilla or groin) Data Review Radiology Date of Exam:12/13/21 CT ABDOMEN/PELVIS WO PROCEDURE: CT abdomen and pelvis without contrast. TECHNIQUE: Multiple contiguous axial images were obtained through the abdomen and pelvis without the use of intravenous contrast. Auto Exposure Controls were utilized during the CT exam to meet ALARA standards for radiation dose reduction. INDICATION: Periumbilical abdominal pain COMPARISON: 11/17/2021 Unenhanced images of the liver and spleen reveal no focal abnormality. No pancreatic, adrenal gland or left renal abnormality is identified. Right kidney is absent. Gallbladder has been removed. There is fluid distention of colon with diffuse mural thickening. There is extensively thickened sigmoid colon and rectal arias. Surgical findings are seen in the anterior abdominal wall with small amount of gas and fluid along the midline incision site. Unenhanced urinary bladder is distended but otherwise unremarkable. IMPRESSION: Extensive mural thickening of the distal colon and rectum suggestive of proctocolitis. There is a small amount of fluid within the anterior abdominal wall incision site, however, no other focal fluid collection is seen to indicate abscess. Dictated by: Dictated on workstation # [id number] Dict: 12/13/21 1758 Trans: 12/13/[id number] [facility] [id number] Interpreted by: SUSANNE VILLEGAS MD Electronically signed by: SUSANNE VILLEGAS MD 12/13/21 1816 Assessment/Plan Assessment/Plan Assessment/Plan C. Diff - causing Proctocolitis Low output fistula Hyponatremia CT shows thickening of colon wall, but no evidence of focal fluid collection or abscess. No surgical intervention; will continue to monitor low output fistula. IV fluids, encourage oral intake (magdalena protein) Oral vancomycin vs possible rectal to treat the C. Diff, and electrolyte replacement. Continue to monitor labs. I reviewed the CT films myself and discussed the case with Dr. Gresham Supervisory-Addendum Brief Verification & Attestation Participated in pt care: history, MDM, physical Personally performed: exam, history, MDM, supervision of care Care discussed with: Medical Student Procedures: n/a Verification and Attestation of Medical Student E/M Service A medical student performed and documented this service. I then reviewed and verified all information documented by the medical student and made modifications to such information, when appropriate. I personally performed a physical exam, medical decision making and then discussed any differences between the notes and made revisions as necessary to create one note. Yadira London , 12/14/21 , 11:46 MARY FINN Dec 14, 2021 08:54 YADIRA LONDON DO Dec 14, 2021 11:44
[2021-12-14] MEDS ORDERED: ENOXAPARIN INJECTION 30 MG/0.3 ML SYR SC SCH (09:00)
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
[2021-12-14] MEDS: ENOXAPARIN INJECTION 30 MG/0.3 ML SYR SC SCH (23:16)
[2021-12-15] VITALS (9 sets, daily range): BP systolic 88–115; BP diastolic 54–75
[2021-12-15] MEDS: metroNIDAZOLE 500 MG/100 ML IVPB (PRE-MIX) IV SCH ×2 (02:44→10:48)
[2021-12-15 05:43] LABS: HEMATOCRIT 28 % (35-52); HEMOGLOBIN 9.5 g/dL (11.5-16.0); MEAN CORPUSCULAR HEMOGLOBIN 30 pg (25-34); MEAN CORPUSCULAR HGB CONC 34 g/dL (32-36); MEAN CORPUSCULAR VOLUME 89 fL (80-99); MEAN PLATELET VOLUME 10.8 fL (9.0-12.2); PLATELET COUNT 227 10^3/uL (130-400); WHITE BLOOD COUNT 23.8 10^3/uL (4.3-11.0)
[2021-12-15 05:50] LABS: POTASSIUM 3.9 MMOL/L (3.6-5.0)
[2021-12-15 05:56] LABS: CREATININE SERUM 2.04 MG/DL (0.60-1.30)
[2021-12-15 05:58] LABS: MAGNESIUM 1.3 MG/DL (1.6-2.4)
[2021-12-15] MEDS: LACTATED RINGERS 1,000 ML IV SCH (06:00)
[2021-12-15] MEDS: VANCOMYCIN 125 MG CAPSULE PO SCH ×3 (06:00→17:25)
[2021-12-15] MEDS ORDERED: MAGNESIUM 1 GM/100 ML IVPB 100 ML IV ONE (07:00)
[2021-12-15] MEDS: D5 1/2 NS 1000 ML IV SOLUTION 1,000 ML IV SCH ×4 (07:31→23:00)
[2021-12-15] MEDS: OXYBUTYNIN (DITROPAN) 5 MG TAB PO SCH ×2 (08:27→21:17)
[2021-12-15] MEDS: ASPIRIN 81 MG CHEW (CHILDREN'S ASA) PO SCH (08:27)
[2021-12-15] MEDS: LORATADINE (CLARITIN) 10 MG TAB PO SCH (08:27)
[2021-12-15] MEDS: LEVOTHYROXINE 150 MCG (LEVOTHROID) TAB PO SCH (08:28)
[2021-12-15] MEDS: FERROUS SULF 325 MG (IRON) TAB PO SCH ×2 (08:28→21:17)
--- NOTE | 2021-12-15 10:36 | Progress Note ---
Subjective Subjective/Events-last exam Still feeling pretty weak, but a little better than yesterday. Wondering how long she will need to be here. Focused Exam Lactate Level 12/13/21 16:50: Lactic Acid Level 1.67 Objective Exam Last Set of Vital Signs Vital Signs Date Time Temp Pulse Resp B/P (MAP) Pulse Ox O2 Delivery O2 Flow Rate FiO2 12/15/21 08:00 98 Room Air 12/15/21 07:56 37.0 98 18 100/61 (74) 12/14/21 14:08 1.00 Capillary Refill : I&O Intake and Output 12/15/21 00:00 Intake Total 3760 ml Output Total 876 ml Balance 2884 ml Intake Oral 1510 ml IV Total 2250 ml Output Urine Total 876 ml # Bowel Movements 4 # Emeses 1 General: Alert, No Acute Distress Lungs: Clear to Auscultation, Normal Air Movement Heart: Other (tachycardic) Abdomen: Normal Bowel Sounds, Soft Extremities: No Edema Neuro: Normal Speech Psych/Mental Status: Mood NL Results/Procedures Lab Laboratory Tests 12/14/21 11:37: Glucometer 165H 12/14/21 17:43: Glucometer 141H 12/14/21 23:45: Glucometer 82 12/15/21 05:23: White Blood Count 23.8H, Red Blood Count 3.18L, Hemoglobin 9.5L, Hematocrit 28L, Mean Corpuscular Volume 89, Mean Corpuscular Hemoglobin 30, Mean Corpuscular Hemoglobin Concent 34, Red Cell Distribution Width 13.4, Platelet Count 227, Mean Platelet Volume 10.8, Sodium Level 133L, Potassium Level 3.9, Chloride Level 107, Carbon Dioxide Level 16L, Anion Gap 10, Blood Urea Nitrogen 40H, Creatinine 2.04H, Estimat Glomerular Filtration Rate 25, BUN/Creatinine Ratio 20, Glucose Level 61L, Calcium Level 7.0L, Magnesium Level 1.3L 12/15/21 05:30: Glucometer 60*L Microbiology 12/13/21 C. difficile GDH Antigen & Toxins - Final, Complete 12/13/21 Gram Stain, Resulted Pending 12/13/21 Wound Culture - Preliminary, Resulted Staphylococcus aureus 12/13/21 Urine Culture - Preliminary, Resulted 12/13/21 Blood Culture - Preliminary, Resulted No growth Radiology CT abdomen: IMPRESSION: Extensive mural thickening of the distal colon and rectum suggestive of proctocolitis. There is a small amount of fluid within the anterior abdominal wall incision site, however, no other focal fluid collection is seen to indicate abscess. Assessment/Plan Assessment/Plan (1) C. difficile colitis Status: Acute Assessment & Plan: PO Vancomycin, IVF (2) Diabetes mellitus Status: Chronic Qualifiers: (3) Fistula Status: Chronic Assessment & Plan: Surgery consulted, does not appear acutely infected (4) Hypothyroidism Status: Chronic Assessment & Plan: Resume home levothyroxine (5) Mixed hyperlipidemia Status: Chronic (6) Primary hypertension Status: Chronic (7) Cardiomyopathy Status: Acute Assessment & Plan: 11/14/21 Echo with EF 25%, discharged with [facility] last hospitalization. Hold Entresto due to JAILENE. Resume home carvedilol. Monitor fluid status closely. (8) Acute kidney insufficiency Status: Acute Assessment & Plan: Secondary to dehydration from diarrhea, IVF, monitor fluid status closely given CHF. 12/15 slowly improving (9) DVT prophylaxis Status: Acute Assessment & Plan: Enoxaparin JULIA ARNETT MD Dec 15, 2021 10:36
[2021-12-15] MEDS ORDERED: MAG CARB/AL HYDROX EXTRA STRENGTH TAB (GAVISCON ES) PO PRN (14:15)
--- NOTE | 2021-12-15 19:18 | Progress Note - Surgery ---
Subjective Time Seen by a Provider: 14:21 Subjective/Events-last exam Pt seen and examined, states she is feeling worse; she is talking about feeling weak. She denied new abd pain and doesn't think there is a lot of fluid coming from fistula. Review of Systems General: Fatigue, Malaise Pulmonary: No Dyspnea, No Cough Cardiovascular: No: Chest Pain Gastrointestinal: Abdominal Pain (minimal); No: Nausea, Vomiting Focused Exam Lactate Level 12/13/21 16:50: Lactic Acid Level 1.67 Objective Exam Vital Signs Date Time Temp Pulse Resp B/P (MAP) Pulse Ox O2 Delivery O2 Flow Rate FiO2 12/15/21 16:06 36.0 85 20 110/65 (80) 100 Room Air 12/15/21 12:35 83 12/15/21 11:17 36.5 92 18 97/68 (78) 99 Room Air 12/15/21 08:00 98 Room Air 12/15/21 07:56 37.0 98 18 100/61 (74) 98 Room Air 12/15/21 07:24 95 12/15/21 04:30 90/54 (66) 12/15/21 04:00 36.6 107 20 88/56 (67) 97 Room Air 12/15/21 01:00 106 12/15/21 00:00 36.7 110 22 91/60 (70) 94 Room Air 12/14/21 21:00 Room Air 12/14/21 19:20 36.5 107 19 104/65 (78) 95 Room Air I & O 12/15/21 07:00 Intake Total 2550 ml Output Total 1000 ml Balance 1550 ml Capillary Refill : General Appearance: No Apparent Distress, Chronically ill, Thin (Very frail. On arrival heart rate 122 sinus, blood pressure consistently 70s over 40s. IV started) HEENT: PERRL/EOMI Respiratory: Lungs Clear, Normal Breath Sounds, No Accessory Muscle Use, No Respiratory Distress Cardiovascular: Regular Rate, Rhythm, Normal Peripheral Pulses Peripheral Pulses: 2+ Radial Pulses (R), 2+ Radial Pulses (L) Gastrointestinal: normal bowel sounds, soft; No guarding, No rebound; tenderness, other (small fistula with minimal serous drainage noted) Results Lab Laboratory Tests 12/14/21 23:45: Glucometer 82 12/15/21 05:23: White Blood Count 23.8H, Red Blood Count 3.18L, Hemoglobin 9.5L, Hematocrit 28L, Mean Corpuscular Volume 89, Mean Corpuscular Hemoglobin 30, Mean Corpuscular Hemoglobin Concent 34, Red Cell Distribution Width 13.4, Platelet Count 227, Mean Platelet Volume 10.8, Sodium Level 133L, Potassium Level 3.9, Chloride Level 107, Carbon Dioxide Level 16L, Anion Gap 10, Blood Urea Nitrogen 40H, Creatinine 2.04H, Estimat Glomerular Filtration Rate 25, BUN/Creatinine Ratio 20, Glucose Level 61L, Calcium Level 7.0L, Magnesium Level 1.3L 12/15/21 05:30: Glucometer 60*L 12/15/21 11:08: Glucometer 161H 12/15/21 18:23: Glucometer 164H Microbiology 12/13/21 C. difficile GDH Antigen & Toxins - Final, Complete 12/13/21 Gram Stain - Final, Resulted 12/13/21 Wound Culture - Preliminary, Resulted Staphylococcus aureus 12/13/21 Urine Culture - Final, Complete NO GROWTH 12/13/21 Blood Culture - Preliminary, Resulted No growth Assessment/Plan Assessment/Plan Assessment/Plan C. Diff - causing Proctocolitis Low output fistula Hyponatremia CT shows thickening of colon wall, but no evidence of focal fluid collection or abscess. No surgical intervention; will continue to monitor low output fistula. IV fluids, encourage oral intake (magdalena protein) Oral vancomycin vs possible rectal to treat the C. Diff, and electrolyte replacement. Continue to monitor labs. I reviewed the CT films myself and discussed the case with YADIRA Kendrcik DO Dec 15, 2021 19:18
[2021-12-15] MEDS: ENOXAPARIN INJECTION 30 MG/0.3 ML SYR SC SCH (21:17)
[2021-12-15] MEDS: AMITRIPTYLINE 25 MG (ELAVIL) TAB PO SCH (21:17)
[2021-12-15] MEDS: FENOFIBRATE 134 MG (LOFIBRA) CAPSULE PO SCH (21:17)
[2021-12-15] MEDS: LATANOPROST 0.005% (XALATAN) OPHTH SOLN 2.5 ML OU SCH (21:18)
[2021-12-16] MEDS: VANCOMYCIN 125 MG CAPSULE PO SCH ×5 (00:07→23:57)
[2021-12-16 03:20] VITALS: BP 96/63
[2021-12-16] MEDS: D5 1/2 NS 1000 ML IV SOLUTION 1,000 ML IV SCH (05:45)
[2021-12-16] MEDS: LEVOTHYROXINE 150 MCG (LEVOTHROID) TAB PO SCH (05:47)
[2021-12-16 06:49] LABS: HEMATOCRIT 30 % (35-52); MEAN CORPUSCULAR HEMOGLOBIN 29 pg (25-34); MEAN CORPUSCULAR HGB CONC 33 g/dL (32-36); MEAN CORPUSCULAR VOLUME 89 fL (80-99); PLATELET COUNT 246 10^3/uL (130-400); WHITE BLOOD COUNT 13.6 10^3/uL (4.3-11.0)
[2021-12-16 06:57] LABS: POTASSIUM 3.2 MMOL/L (3.6-5.0)
[2021-12-16 06:58] LABS: CALCIUM 6.5 MG/DL (8.5-10.1)
[2021-12-16 07:03] LABS: CREATININE SERUM 1.73 MG/DL (0.60-1.30)
[2021-12-16 07:05] LABS: MAGNESIUM 1.3 MG/DL (1.6-2.4)
[2021-12-16 07:40] VITALS: BP 108/69
--- NOTE | 2021-12-16 08:08 | Progress Note - Surgery ---
MARY FINN 12/16/21 0808: Subjective Date Seen by a Provider: Dec 16, 2021 Time Seen by a Provider: 08:04 Subjective/Events-last exam Pt resting comfortably in bed. States she slept much better last night. She had some diarrhea and one episode of vomiting yesterday evening, without any blood. Notes her weakness is better. She has some abdominal cramping, but denies fever, chills, chest pain, SOB, or nausea this morning. Review of Systems General: No Chills, No Night Sweats HEENT: No Visual Changes Pulmonary: No Cough Cardiovascular: No: Chest Pain Gastrointestinal: Vomiting; No: Nausea, Abdominal Pain Genitourinary: No Dysuria, No Retention Neurological: Weakness (improving) Focused Exam Lactate Level 12/13/21 16:50: Lactic Acid Level 1.67 Objective Exam Vital Signs Date Time Temp Pulse Resp B/P (MAP) Pulse Ox O2 Delivery O2 Flow Rate FiO2 12/16/21 07:40 36.1 79 18 108/69 (82) 98 Room Air 12/16/21 07:00 76 12/16/21 03:20 36.6 83 18 96/63 (74) 99 Room Air 12/16/21 01:00 83 12/15/21 23:41 36.1 89 16 101/58 (72) 98 Room Air 12/15/21 20:20 Room Air 12/15/21 20:06 35.8 76 20 115/75 (88) 99 Room Air 12/15/21 19:33 35.8 76 20 115/75 (88) 99 Room Air 12/15/21 19:00 80 12/15/21 16:06 36.0 85 20 110/65 (80) 100 Room Air 12/15/21 12:35 83 12/15/21 11:17 36.5 92 18 97/68 (78) 99 Room Air I & O 12/16/21 06:59 Intake Total 3970 ml Output Total 375 ml Balance 3595 ml Capillary Refill : General Appearance: No Apparent Distress, Chronically ill, Thin (Very frail. On arrival heart rate 122 sinus, blood pressure consistently 70s over 40s. IV started) HEENT: PERRL/EOMI, Moist Mucous Membranes Neck: Non Tender, Supple Respiratory: Lungs Clear, Normal Breath Sounds, No Accessory Muscle Use, No Respiratory Distress Cardiovascular: Regular Rate, Rhythm, No Murmur Peripheral Pulses: 2+ Radial Pulses (R), 2+ Radial Pulses (L) Gastrointestinal: normal bowel sounds, soft; No guarding, No rebound; tenderness (very mild diffuse tenderness), other (small fistula with minimal serous drainage noted) Extremity: No Calf Tenderness, No Pedal Edema Neurologic/Psychiatric: Alert, Oriented x3 Skin: Normal Color, Warm/Dry Lymphatic: No Adenopathy (supraclavicular nodes) Results Lab Laboratory Tests 12/15/21 11:08: Glucometer 161H 12/15/21 18:23: Glucometer 164H 12/16/21 00:07: Glucometer 185H 12/16/21 06:46: White Blood Count 13.6H, Red Blood Count 3.41L, Hemoglobin 10.0L, Hematocrit 30L , Mean Corpuscular Volume 89, Mean Corpuscular Hemoglobin 29, Mean Corpuscular Hemoglobin Concent 33, Red Cell Distribution Width 13.4, Platelet Count 246, Mean Platelet Volume 11.0, Sodium Level 128L, Potassium Level 3.2L, Chloride Level 102, Carbon Dioxide Level 17L, Anion Gap 9, Blood Urea Nitrogen 32H, Creatinine 1.73H, Estimat Glomerular Filtration Rate 30, BUN/Creatinine Ratio 18, Glucose Level 159H, Calcium Level 6.5L, Magnesium Level 1.3L Microbiology 12/13/21 C. difficile GDH Antigen & Toxins - Final, Complete 12/13/21 Gram Stain - Final, Resulted 12/13/21 Wound Culture - Preliminary, Resulted Staphylococcus aureus 12/13/21 Urine Culture - Final, Complete NO GROWTH 12/13/21 Blood Culture - Preliminary, Resulted No growth Assessment/Plan Assessment/Plan Assessment/Plan C. Diff - causing Proctocolitis Low output fistula Hyponatremia CT shows thickening of colon wall, but no evidence of focal fluid collection or abscess. No surgical intervention; will continue to monitor low output fistula. IV fluids, encourage oral intake (magdalena protein) Oral vancomycin vs possible rectal to treat the C. Diff, and electrolyte replacement. Continue to monitor labs. I reviewed the CT films myself and discussed the case with CHRIS Kendrick DO 12/16/21 1101: Subjective Time Seen by a Provider: 10:12 Subjective/Events-last exam Pt seen and examined, states feels a little better than yesterday. Still weak and had some diarrhea. Review of Systems General: No Chills, No Night Sweats; Fatigue, Malaise Pulmonary: No Cough Cardiovascular: No: Chest Pain Gastrointestinal: Vomiting; No: Nausea, Abdominal Pain Genitourinary: No Dysuria Objective Exam General Appearance: No Apparent Distress, Chronically ill, Thin (Very frail. On arrival heart rate 122 sinus, blood pressure consistently 70s over 40s. IV started) HEENT: PERRL/EOMI, Moist Mucous Membranes Respiratory: Lungs Clear, Normal Breath Sounds, No Accessory Muscle Use, No Respiratory Distress Cardiovascular: Regular Rate, Rhythm, No Murmur Gastrointestinal: soft; No guarding, No rebound; tenderness (very mild diffuse tenderness), other (small fistula with minimal serous drainage noted) Neurologic/Psychiatric: Alert, Oriented x3 Assessment/Plan Assessment/Plan Assessment/Plan C. Diff - causing Proctocolitis Low output fistula Hyponatremia CT shows thickening of colon wall, but no evidence of focal fluid collection or abscess. No surgical intervention; will continue to monitor low output fistula. IV fluids, encourage oral intake (magdalena protein) Oral vancomycin to treat the C. Diff, and electrolyte replacement. Continue to monitor labs. Supervisory-Addendum Brief Verification & Attestation Participated in pt care: history, MDM, physical Personally performed: exam, history, MDM, supervision of care Care discussed with: Medical Student Procedures: n/a Verification and Attestation of Medical Student E/M Service A medical student performed and documented this service. I then reviewed and verified all information documented by the medical student and made modifications to such information, when appropriate. I personally performed a physical exam, medical decision making and then discussed any differences between the notes and made revisions as necessary to create one note. Chris Nieves , 12/16/21 , 11:01 MARY FINN Dec 16, 2021 08:08 CHRIS NIEVES DO Dec 16, 2021 11:01
[2021-12-16] MEDS ORDERED: KCL 20 MEQ TAB (K-DUR) PO ONE (08:15)
[2021-12-16] MEDS: LORATADINE (CLARITIN) 10 MG TAB PO SCH (08:55)
[2021-12-16] MEDS: OXYBUTYNIN (DITROPAN) 5 MG TAB PO SCH ×2 (08:55→21:00)
[2021-12-16] MEDS: ASPIRIN 81 MG CHEW (CHILDREN'S ASA) PO SCH (08:55)
[2021-12-16] MEDS: FERROUS SULF 325 MG (IRON) TAB PO SCH ×2 (08:55→21:00)
[2021-12-16] MEDS: MAGNESIUM 1 GM/100 ML IVPB 100 ML IV SCH ×2 (08:56→12:07)
[2021-12-16 11:46] VITALS: BP 110/70
--- NOTE | 2021-12-16 13:27 | Occupational Therapy Eval ---
OT Evaluation-General/PLF Medical Diagnosis Admission Date Dec 13, 2021 at 19:18 Medical Diagnosis: Sepsis, JAILENE, R/O C-diff Onset Date: Dec 13, 2021 Therapy Diagnosis Therapy Diagnosis: reduced adl status Precautions Precautions/Isolations: Fall Prevention, Contact/Enteric Isolation Referral Referral Reason: Evaluation/Treatment Medical History Pertinent Medical History: Atrial Fib, DM, HTN, Hypothroidism, OA, Renal Insufficiency Current History Pt confused on timing of events. She is recalling events that led up to last hospital stay. According to patient, she still lives alone in a single story home. However, her grandson has been coming over to assist with iadls. She reports indep with adls. Pt uses a 4WW at baseline. Reviewed History: Yes Social History Home: Single Level Current Living Status: Alone ADL-Prior Level of Function SCALE: Activities may be completed with or without assistive devices. 3-Rznclgkxix-irkkpuv completes the activity by him/herself with no assistance from a helper. 5-Set-up or Clean-up Assistance-helper sets up or cleans up; patient completes activity. [place] assists only prior to or following the activity. 4-Supervision or Touching Assistance-helper provides verbal cues and/or touching/steadying and/or contact guard assistance as patient completes activ ity. Assistance may be provided throughout the activity or intermittently. 3-Partial/Moderate Assistance-helper does LESS THAN HALF the effort. [place] lifts, holds or supports trunk or limbs, but provides less than half the effort. 2-Substantial/Maximal Assistance-helper does MORE THAN HALF the effort. [place] lifts or holds trunk or limbs and provides more than half the effort. 3-Diwkoqzoc-iumnlf does ALL the effort. Patient does none of the effort to complete the activity. Or, the assistance of 2 or more helpers is required for the patient to complete the activity. If activity was not attempted, code reason: 7-Patient Refused. 9-Not Applicable-not attempted and the patient did not perform the activity before the current illness, exacerbation or injury. 10-Not Attempted due to Environmental Limitations-(lack of equipment, weather restraints, etc.). 88-Not Attempted due to Medical Conditions or Safety Concerns. Self Care: Independent Functional Cognition: Unknown DME/Equipment: Grab Bars, Tub/Shower (built in shower seat) OT Current Status Subjective Pt confused, extra time for processing. Appearance Pt returned to supine in bed, all needs within reach. Mental Status/Objective Patient Orientation: Person, Confused Attachments: Knapp Catheter, IV, Telemetry, Other-See Comments (LifeVest) Current Glasses/Contacts: Yes Hand Dominance: Right Upper Extremity Strength debilitated ADL-Treatment Lower Body Dressing (QC): 2 On/Off Footwear (QC): 1 Toileting Hygiene (QC): 3 Pt incontinent of stools at OT arrival. C-diff pending. Min a to elevate torso secondary to weakness. Unable to reach feet to don socks, thus dependent to complete. She stood with min a and ambulated to/from bathroom with use of walker. Cues for safety and attention/awareness to IV line. While sitting, pt able to perform amanuel care with set up/supervision. Dependent to don new brief over feet due to weakness and increased c/o dizziness when bending. She was able to manage brief up to waist with min a to pull up completely in the back, steadying assist required. C/o lightheadedness in standing. BP: 82/57. SENIOR MANUFACTURING SUPERVISOR called in for safety when transferring back to bed. Simplification and repetition of commands required throughout treatment. Education OT Patient Education: Correct positioning, Energy conservation, Purpose of tx/functional activities, Safety issues, Transfer techniques Teaching Recipient: Patient Teaching Methods: Demonstration, Discussion Response to Teaching: Reinforcement Needed OT Jail Goals Jail Goals Time Frame: Jan 06, 2022 Eating (QC): 5 Oral Hygiene (QC): 5 Toileting Hygiene (QC): 5 Shower/Bathe Self (QC): 4 Upper Body Dressing (QC): 5 Lower Body Dressing (QC): 4 On/Off Footwear (QC): 4 1=Demonstrate adherence to instructed precautions during ADL tasks. 2=Patient will verbalize/demonstrate understanding of assistive devices/modifications for ADL. 3=Patient will improve strength/tolerance for activity to enable patient to perform ADL's. OT Education/Plan Problem List/Assessment Assessment: Decreased Activ Tolerance, Decreased Safety Aware, Decreased UE Strength, Impaired Bed Mobility, Impaired Cognition, Impaired Funct Balance, Impaired I ADL's, Impaired Self-Care Skills Discharge Recommendations Plan/Recommendations: Continue POC Therapy Discharge Recommendati: Post Acute OT Treatment Plan/Plan of Care Treatment,Training & Education: Yes Patient would benefit from OT for education, treatment and training to promote independence in ADL's, mobility, safety and/or upper extremity function for ADL's. Plan of Care: ADL Retraining, Cognitive Retraining, Functional Mobility, Group Exercise/Act as Ind, UE Funct Exercise/Act Treatment Duration: Jan 06, 2022 Frequency: 3 times per week (3-5x/week) Estimated Hrs Per Day: .25 hour per day Agreement: Yes Rehab Potential: Fair Time/GCodes Start Time: 12:46 Stop Time: 13:17 Total Time Billed (hr/min): 31 Billed Treatment Time 1 visit EVH (10 min) ADL (21 min) Neli De Paz OT Dec 16, 2021 13:27
--- NOTE | 2021-12-16 14:35 | Physical Therapy Evaluation ---
PT Evaluation-General Medical Diagnosis Admission Date Dec 13, 2021 at 19:18 Medical Diagnosis: Sepsis, JAILENE, R/O C-diff Onset Date: Dec 13, 2021 Therapy Diagnosis Therapy Diagnosis: generalized weakness/debility Precautions Precautions/Isolations: Fall Prevention, Contact/Enteric Isolation Referral Physician: Mp Reason for Referral: Evaluation/Treatment Medical History Pertinent Medical History: Atrial Fib, Arthritis, DM, HTN, Hypothroidism, OA, Renal Insufficiency Current History ER secondary to generalized weakness and diarrhea Reviewed History: Yes Social History Home: Single Level Current Living Status: Alone (grandson has been staying and assisting patient per her report) Prior Prior Level of Function SCALE: Activities may be completed with or without assistive devices. 2-Muyxbtrndh-uullgeo completes the activity by him/herself with no assistance from a helper. 5-Set-up or Clean-up Assistance-helper sets up or cleans up; patient completes activity. [place] assists only prior to or following the activity. 4-Supervision or Touching Assistance-helper provides verbal cues and/or touching/steadying and/or contact guard assistance as patient completes activity. Assistance may be provided throughout the activity or intermittently. 3-Partial/Moderate Assistance-helper does LESS THAN HALF the effort. [place] lifts, holds or supports trunk or limbs, but provides less than half the effort. 2-Substantial/Maximal Assistance-helper does MORE THAN HALF the effort. [place] lifts or holds trunk or limbs and provides more than half the effort. 4-Oqvtanaju-ceolqd does ALL the effort. Patient does none of the effort to complete the activity. Or, the assistance of 2 or more helpers is required for the patient to complete the activity. If activity was not attempted, code reason: 7-Patient Refused. 9-Not Applicable-not attempted and the patient did not perform the activity before the current illness, exacerbation or injury. 10-Not Attempted due to Environmental Limitations-(lack of equipment, weather restraints, etc.). 88-Not Attempted due to Medical Conditions or Safety Concerns. Bed Mobility: 6 Transfers (B,C,W/C): 6 Gait: 6 Indoor Mobility (Ambulation): Independent Prior Devices Use: Walker PT Evaluation-Current Subjective Patient agrees to PT. Objective Patient Orientation: Normal For Age Attachments: Knapp Catheter, IV life vest ROM/Strength ROM Lower Extremities bilateral LE WFL Strength Lower Extremities 3-/5 grossly bilateral LE all planes Integumentary/Posture Integumentary refer to nursing notes Bladder Incontinence: Knapp Cath Posture WFL Neuromuscular (Tone, Coordination, Reflexes) grossly intact Sensory Vision: Wears Glasses Hearing: Functional Hand Dominance: Right Transfers Sit to Lying (QC): 6 Lying to Sitting/Side of Bed(Q: 6 Sit to Stand (QC): 4 Gait Mode of Locomotion: Walk Anticipated Mode of Locomotion: Walk Walk 10 feet (QC): 4 Walk 50 ft with 2 Turns(QC): 4 Walk 150 ft (QC): 88 Distance: 50' Gait Assistive Device: FWW Comments/Gait Description very slow, functional gait sequence Balance Sitting Static: Normal Sitting Dynamic: Normal Standing Static: Fair Standing Dynamic: Fair Assessment/Needs 76 y.o. female, will benefit from skilled PT to address functional strength and mobility to improve current LOF. Rehab Potential: Fair PT Mcc Goals Manager Lean Goals PT Manager Lean Goals Time Frame: Jan 01, 2022 Roll Left & Right (QC): 6 Sit to Lying (QC): 6 Lying-Sitting on Side/Bed(QC): 6 Sit to Stand (QC): 6 Chair/Bli-wl-Cxzek Xfer(QC): 6 Toilet Transfer (QC): 6 Walk 10 feet (QC): 6 Walk 50ft with 2 Turns (QC): 6 PT Plan Problem List Problem List: Activity Tolerance, Functional Strength, Safety, Balance, Gait, Transfer, Bed Mobility Treatment/Plan Treatment Plan: Continue Plan of Care Treatment Plan: Bed Mobility, Education, Functional Activity Maikel, Functional Strength, Gait, Safety, Therapeutic Exercise, Transfers Treatment Duration: Jan 01, 2022 Frequency: 6 times per week Estimated Hrs Per Day: .25 hour per day Patient and/or Family Agrees t: Yes Time/GCodes Time In: 1331 Time Out: 1346 Total Billed Treatment Time: 15 Total Billed Treatment 1 visit EVModC 15 min ARELI JENNINGS PT Dec 16, 2021 14:35
[2021-12-16 16:07] VITALS: BP 107/63
--- NOTE | 2021-12-16 16:19 | Progress Note ---
Subjective Subjective/Events-last exam Felling a little better again today, although still weak. Focused Exam Lactate Level 12/13/21 16:50: Lactic Acid Level 1.67 Objective Exam Last Set of Vital Signs Vital Signs Date Time Temp Pulse Resp B/P (MAP) Pulse Ox O2 Delivery O2 Flow Rate FiO2 12/16/21 16:07 36.1 74 20 107/63 (78) 100 Room Air 12/14/21 14:08 1.00 Capillary Refill : I&O Intake and Output 12/16/21 00:00 Intake Total 3260 ml Output Total 375 ml Balance 2885 ml Intake Oral 960 ml IV Total 2300 ml Output Urine Total 375 ml # Bowel Movements 3 General: Alert, No Acute Distress Lungs: Clear to Auscultation, Normal Air Movement Heart: Regular Rate Abdomen: Normal Bowel Sounds, Soft, No Tenderness Extremities: No Edema Neuro: Normal Speech Psych/Mental Status: Mood NL Results/Procedures Lab Laboratory Tests 12/15/21 18:23: Glucometer 164H 12/16/21 00:07: Glucometer 185H 12/16/21 06:46: White Blood Count 13.6H, Red Blood Count 3.41L, Hemoglobin 10.0L, Hematocrit 30L , Mean Corpuscular Volume 89, Mean Corpuscular Hemoglobin 29, Mean Corpuscular Hemoglobin Concent 33, Red Cell Distribution Width 13.4, Platelet Count 246, Mean Platelet Volume 11.0, Sodium Level 128L, Potassium Level 3.2L, Chloride Level 102, Carbon Dioxide Level 17L, Anion Gap 9, Blood Urea Nitrogen 32H, Creatinine 1.73H, Estimat Glomerular Filtration Rate 30, BUN/Creatinine Ratio 18, Glucose Level 159H, Calcium Level 6.5L, Magnesium Level 1.3L 12/16/21 11:37: Glucometer 158H Microbiology 12/13/21 C. difficile GDH Antigen & Toxins - Final, Complete 12/13/21 Gram Stain - Final, Complete 12/13/21 Wound Culture - Final, Complete Gram Pos Mixed Bacterial Carly Staphylococcus aureus 12/13/21 Urine Culture - Final, Complete NO GROWTH 12/13/21 Blood Culture - Preliminary, Resulted No growth Radiology CT abdomen: IMPRESSION: Extensive mural thickening of the distal colon and rectum suggestive of proctocolitis. There is a small amount of fluid within the anterior abdominal wall incision site, however, no other focal fluid collection is seen to indicate abscess. Assessment/Plan Assessment/Plan (1) C. difficile colitis Status: Acute Assessment & Plan: PO Vancomycin, IVF (2) Diabetes mellitus Status: Chronic Qualifiers: (3) Fistula Status: Chronic Assessment & Plan: Surgery consulted, does not appear acutely infected (4) Hypothyroidism Status: Chronic Assessment & Plan: Resume home levothyroxine (5) Mixed hyperlipidemia Status: Chronic (6) Primary hypertension Status: Chronic (7) Cardiomyopathy Status: Acute Assessment & Plan: 11/14/21 Echo with EF 25%, discharged with Lifevest last hospitalization. Hold Entresto due to JAILENE. Resume home carvedilol. Monitor fluid status closely. (8) Acute kidney insufficiency Status: Acute Assessment & Plan: Secondary to dehydration from diarrhea, IVF, monitor fluid status closely given CHF. 12/15 slowly improving 12/16 Cr down to 1.73 (9) DVT prophylaxis Status: Acute Assessment & Plan: Enoxaparin JULIA ARNETT MD Dec 16, 2021 16:19
[2021-12-16] MEDS: NS IV 1000 ML 1,000 ML IV SCH (16:40)
[2021-12-16 19:38] VITALS: BP 111/70
[2021-12-16] MEDS: LATANOPROST 0.005% (XALATAN) OPHTH SOLN 2.5 ML OU SCH (20:59)
[2021-12-16] MEDS: ENOXAPARIN INJECTION 30 MG/0.3 ML SYR SC SCH (21:00)
[2021-12-16] MEDS: FENOFIBRATE 134 MG (LOFIBRA) CAPSULE PO SCH (21:00)
[2021-12-16] MEDS: AMITRIPTYLINE 25 MG (ELAVIL) TAB PO SCH (21:00)
[2021-12-17] VITALS (7 sets, daily range): BP systolic 92–110; BP diastolic 56–70
[2021-12-17] MEDS: NS IV 1000 ML 1,000 ML IV SCH ×3 (02:09→23:33)
[2021-12-17] MEDS: VANCOMYCIN 125 MG CAPSULE PO SCH ×4 (05:35→23:33)
[2021-12-17] MEDS: LEVOTHYROXINE 150 MCG (LEVOTHROID) TAB PO SCH (05:36)
[2021-12-17 06:26] LABS: HEMATOCRIT 32 % (35-52); HEMOGLOBIN 10.5 g/dL (11.5-16.0); MEAN CORPUSCULAR HEMOGLOBIN 30 pg (25-34); MEAN CORPUSCULAR HGB CONC 33 g/dL (32-36); MEAN CORPUSCULAR VOLUME 91 fL (80-99); MEAN PLATELET VOLUME 11.4 fL (9.0-12.2); PLATELET COUNT 221 10^3/uL (130-400)
[2021-12-17 06:27] LABS: POTASSIUM 4.2 MMOL/L (3.6-5.0)
[2021-12-17 06:28] LABS: CALCIUM 6.4 MG/DL (8.5-10.1)
[2021-12-17 06:32] LABS: CREATININE SERUM 1.3 MG/DL (0.60-1.30)
[2021-12-17 06:35] LABS: MAGNESIUM 1.9 MG/DL (1.6-2.4)
--- NOTE | 2021-12-17 09:03 | Occupational Ther Daily Note ---
OT Current Status-Daily Note Subjective Pt continues to report she is "too weak" to do very much. Appearance Pt left sitting in recliner, all needs within reach, POKER MANAGER notified. Mental Status/Objective Patient Orientation: Person, Place Attachments: Knapp Catheter, IV, Telemetry LifeVest ADL-Treatment Therapy Code Descriptions/Definitions Functional [place] Measure: 0=Not Assessed/NA 4=Minimal Assistance 1=Total Assistance 5=Supervision or Setup 2=Maximal Assistance 6=Modified [place] 3=Moderate Assistance 7=Complete IndependenceSCALE: Activities may be completed with or without assistive devices. 0-Akiureyjet-jsqwhoj completes the activity by him/herself with no assistance from a helper. 5-Set-up or Clean-up Assistance-helper sets up or cleans up; patient completes activity. [place] assists only prior to or following the activity. 4-Supervision or Touching Assistance-helper provides verbal cues and/or touching/steadying and/or contact guard assistance as patient completes activity. Assistance may be provided throughout the activity or intermittently. 3-Partial/Moderate Assistance-helper does LESS THAN HALF the effort. [place] lifts, holds or supports trunk or limbs, but provides less than half the effort. 2-Substantial/Maximal Assistance-helper does MORE THAN HALF the effort. [place] lifts or holds trunk or limbs and provides more than half the effort. 2-Jpaqbutpx-ykuqnt does ALL the effort. Patient does none of the effort to complete the activity. Or, the assistance of 2 or more helpers is required for the patient to complete the activity. If activity was not attempted, code reason: 7-Patient Refused. 9-Not Applicable-not attempted and the patient did not perform the activity before the current illness, exacerbation or injury. 10-Not Attempted due to Environmental Limitations-(lack of equipment, weather restraints, etc.). 88-Not Attempted due to Medical Conditions or Safety Concerns. Eating (QC): 5 On/Off Footwear: 2 Pt sleeping at OT arrival, easy to rouse. She is very weak and takes significant time for all transfers. Mod to elevate torso when sitting EOB. Max a to don bilateral socks after effortful (but failed) attempts given. She stood from bed with Min a and ambulated to recliner with CGA and walker. Cues for attention to IV line. Poor eccentric control when lowering, assist for safety needed. Assist for meal set up including opening all containers secondary to weakness. Pt able to demonstrate ability to bring utensils/cup to mouth without assist. Pt is currently on a liquid/clear diet. Education OT Patient Education: Correct positioning, Modified ADL techniques, Progress toward Goal/Update tx plan, Purpose of tx/functional activities, Safety issues, Transfer techniques Teaching Recipient: Patient Teaching Methods: Demonstration, Discussion Response to Teaching: Verbalize Understanding, Reinforcement Needed OT Tip Stitcher Goals Tip Stitcher Goals Time Frame: Jan 06, 2022 Eating (QC): 5 Oral Hygiene (QC): 5 Toileting Hygiene (QC): 5 Shower/Bathe Self (QC): 4 Upper Body Dressing (QC): 5 Lower Body Dressing (QC): 4 On/Off Footwear (QC): 4 1=Demonstrate adherence to instructed precautions during ADL tasks. 2=Patient will verbalize/demonstrate understanding of assistive devices/modifications for ADL. 3=Patient will improve strength/tolerance for activity to enable patient to perform ADL's. OT Education/Plan Problem List/Assessment Assessment: Decreased Activ Tolerance, Decreased Safety Aware, Decreased UE Strength, Impaired Bed Mobility, Impaired Cognition, Impaired Funct Balance, Impaired I ADL's, Impaired Self-Care Skills Discharge Recommendations Plan/Recommendations: Continue POC Therapy Discharge Recommendati: Post Acute OT Treatment Plan/Plan of Care Patient would benefit from OT for education, treatment and training to promote independence in ADL's, mobility, safety and/or upper extremity function for ADL's. Plan of Care: ADL Retraining, Cognitive Retraining, Functional Mobility, Group Exercise/Act as Ind, UE Funct Exercise/Act Treatment Duration: Jan 06, 2022 Frequency: 3 times per week (3-5x/week) Estimated Hrs Per Day: .25 hour per day Agreement: Yes Rehab Potential: Fair Time/GCodes Start Time: 08:29 Stop Time: 08:41 Total Time Billed (hr/min): 12 Billed Treatment Time 1 visit Neli Talavera OT Dec 17, 2021 09:03
[2021-12-17] MEDS: LORATADINE (CLARITIN) 10 MG TAB PO SCH (09:06)
[2021-12-17] MEDS: FERROUS SULF 325 MG (IRON) TAB PO SCH ×2 (09:06→20:42)
[2021-12-17] MEDS: OXYBUTYNIN (DITROPAN) 5 MG TAB PO SCH ×2 (09:06→20:42)
[2021-12-17] MEDS: ASPIRIN 81 MG CHEW (CHILDREN'S ASA) PO SCH (09:06)
--- NOTE | 2021-12-17 09:43 | Physical Therapy Daily Note ---
PT Daily Note-Current Subjective Patient agrees to PT. Mental Status Patient Orientation: Normal For Age Attachments: Knapp Catheter, IV life vest Transfers SCALE: Activities may be completed with or without assistive devices. 9-Csuxhkekod-azjzyya completes the activity by him/herself with no assistance from a helper. 5-Set-up or Clean-up Assistance-helper sets up or cleans up; patient completes activity. [place] assists only prior to or following the activity. 4-Supervision or Touching Assistance-helper provides verbal cues and/or touching/steadying and/or contact guard assistance as patient completes activity. Assistance may be provided throughout the activity or intermittently. 3-Partial/Moderate Assistance-helper does LESS THAN HALF the effort. [place] lifts, holds or supports trunk or limbs, but provides less than half the effort. 2-Substantial/Maximal Assistance-helper does MORE THAN HALF the effort. [place] lifts or holds trunk or limbs and provides more than half the effort. 4-Fbpqnpmxb-crsonx does ALL the effort. Patient does none of the effort to complete the activity. Or, the assistance of 2 or more helpers is required for the patient to complete the activity. If activity was not attempted, code reason: 7-Patient Refused. 9-Not Applicable-not attempted and the patient did not perform the activity before the current illness, exacerbation or injury. 10-Not Attempted due to Environmental Limitations-(lack of equipment, weather restraints, etc.). 88-Not Attempted due to Medical Conditions or Safety Concerns. Sit to Stand (QC): 4 Toilet Transfer (QC): 4 Gait Training Distance: 50' Walk 10 feet (QC): 4 Walk 50 ft with 2 Turns(QC): 4 Gait Assistive Device: FWW slow, steady Assessment Patient incontinent BM and on toilet. PT changed patient's brief. Call light in hand. Increase activity as tolerated by patient. PT Penitentiary Goals Penitentiary Goals PT Penitentiary Goals Time Frame: Jan 01, 2022 Roll Left & Right (QC): 6 Sit to Lying (QC): 6 Lying-Sitting on Side/Bed(QC): 6 Sit to Stand (QC): 6 Chair/Byf-av-Hswrp Xfer(QC): 6 Toilet Transfer (QC): 6 Walk 10 feet (QC): 6 Walk 50ft with 2 Turns (QC): 6 PT Plan Treatment/Plan Treatment Plan: Continue Plan of Care Treatment Plan: Bed Mobility, Education, Functional Activity Maikel, Functional Strength, Gait, Safety, Therapeutic Exercise, Transfers Treatment Duration: Jan 01, 2022 Frequency: 6 times per week Estimated Hrs Per Day: .25 hour per day Patient and/or Family Agrees t: Yes Time/GCodes Time In: 917 Time Out: 930 Total Billed Treatment Time: 13 Total Billed Treatment 1 visit FA 13 min ARELI JENNINGS PT Dec 17, 2021 09:43
--- NOTE | 2021-12-17 10:27 | Progress Note - Surgery ---
MARY FINN 12/17/21 1027: Subjective Date Seen by a Provider: Dec 17, 2021 Time Seen by a Provider: 10:23 Subjective/Events-last exam Pt resting comfortably in chair, drinking protein shake. States she is feeling much better today. She had some diarrhea last night and this morning, but no blood was found in stool. Reports she was able to walk with her walker yesterday and feels much less weak. She had one episode of N/V yesterday, but none this morning. She denies abdominal pain, fever, chills, chest pain, and SOB. Review of Systems General: No Chills, No Night Sweats HEENT: No Visual Changes Pulmonary: No Cough Cardiovascular: No: Chest Pain Gastrointestinal: Diarrhea; No: Nausea, Vomiting, Abdominal Pain, Melena, Hematochezia Genitourinary: No Retention Objective Exam Vital Signs Date Time Temp Pulse Resp B/P (MAP) Pulse Ox O2 Delivery O2 Flow Rate FiO2 12/17/21 07:50 36.4 79 18 92/56 (68) 99 Room Air 12/17/21 07:00 80 12/17/21 04:03 36.8 79 16 97/62 (74) 97 Room Air 12/17/21 01:00 80 12/17/21 00:15 36.5 82 18 110/70 (83) 98 Room Air 12/16/21 20:59 Room Air 12/16/21 19:38 36.5 71 20 111/70 (84) 100 Room Air 12/16/21 19:00 71 12/16/21 16:07 36.1 74 20 107/63 (78) 100 Room Air 12/16/21 13:00 84 12/16/21 11:46 36.4 81 18 110/70 (83) 98 Room Air I & O 12/17/21 07:00 Intake Total 2120 ml Output Total 1250 ml Balance 870 ml Capillary Refill : General Appearance: No Apparent Distress, Chronically ill, Thin (Very frail. On arrival heart rate 122 sinus, blood pressure consistently 70s over 40s. IV started) HEENT: PERRL/EOMI, Moist Mucous Membranes Neck: Non Tender, Supple Respiratory: Lungs Clear, Normal Breath Sounds, No Accessory Muscle Use, No Respiratory Distress Cardiovascular: Regular Rate, Rhythm, No Gallop, No Murmur Peripheral Pulses: 2+ Radial Pulses (R), 2+ Radial Pulses (L) Gastrointestinal: normal bowel sounds, non tender, soft; No guarding, No rebound; other (small fistula no drainage this am) Extremity: No Calf Tenderness, No Pedal Edema Neurologic/Psychiatric: Alert, Oriented x3 Skin: Normal Color, Warm/Dry Lymphatic: No Adenopathy (supraclavicular nodes) Results Lab Laboratory Tests 12/16/21 11:37: Glucometer 158H 12/16/21 18:07: Glucometer 128H 12/17/21 05:01: Glucometer 70 12/17/21 05:21: White Blood Count 11.0, Red Blood Count 3.49L, Hemoglobin 10.5L, Hematocrit 32L, Mean Corpuscular Volume 91, Mean Corpuscular Hemoglobin 30, Mean Corpuscular Hemoglobin Concent 33, Red Cell Distribution Width 13.7, Platelet Count 221, Mean Platelet Volume 11.4, Sodium Level 129L, Potassium Level 4.2, Chloride Level 109H, Carbon Dioxide Level 11L, Anion Gap 9, Blood Urea Nitrogen 24H, Creatinine 1.30, Estimat Glomerular Filtration Rate 43, BUN/Creatinine Ratio 18, Glucose Level 61L, Calcium Level 6.4L, Magnesium Level 1.9 12/17/21 06:24: Glucometer 103 Microbiology 12/13/21 C. difficile GDH Antigen & Toxins - Final, Complete 12/13/21 Gram Stain - Final, Complete 12/13/21 Wound Culture - Final, Complete Gram Pos Mixed Bacterial Carly Staphylococcus aureus 12/13/21 Urine Culture - Final, Complete NO GROWTH 12/13/21 Blood Culture - Preliminary, Resulted No growth Assessment/Plan Assessment/Plan Assessment/Plan C. Diff - causing Proctocolitis Low output fistula Hyponatremia CT shows thickening of colon wall, but no evidence of focal fluid collection or abscess. No surgical intervention; will continue to monitor low output fistula. IV fluids, encourage oral intake (magdalena protein) Oral vancomycin to treat the C. Diff, and electrolyte replacement. Continue to monitor labs. YADIRA NIEVES DO 12/17/21 1448: Subjective Time Seen by a Provider: 14:29 Subjective/Events-last exam Pt seen and examined, states she is feeling better today and a little bit stronger. Tolerating more food. Review of Systems General: No Chills, No Night Sweats Pulmonary: No Cough Cardiovascular: No: Chest Pain Gastrointestinal: No: Nausea, Vomiting, Abdominal Pain Objective Exam General Appearance: No Apparent Distress, Chronically ill, Thin (Very frail. On arrival heart rate 122 sinus, blood pressure consistently 70s over 40s. IV started) HEENT: PERRL/EOMI Respiratory: Lungs Clear, Normal Breath Sounds, No Accessory Muscle Use, No Respiratory Distress Cardiovascular: Regular Rate, Rhythm, No Murmur Gastrointestinal: non tender, soft; No guarding, No rebound; other (small fistula no drainage this am) Neurologic/Psychiatric: Alert, Oriented x3 Assessment/Plan Assessment/Plan Assessment/Plan C. Diff - causing Proctocolitis Low output fistula Hyponatremia CT shows thickening of colon wall, but no evidence of focal fluid collection or abscess. No surgical intervention; will continue to monitor low output fistula. IV fluids, encourage oral intake (magdalena protein) Oral vancomycin to treat the C. Diff, and electrolyte replacement. Continue to monitor labs. Supervisory-Addendum Brief Verification & Attestation Participated in pt care: history, MDM, physical Personally performed: exam, history, MDM, supervision of care Care discussed with: Medical Student Procedures: n/a Verification and Attestation of Medical Student E/M Service A medical student performed and documented this service. I then reviewed and verified all information documented by the medical student and made modifications to such information, when appropriate. I personally performed a physical exam, medical decision making and then discussed any differences between the notes and made revisions as necessary to create one note. Yadira Nieves , 12/17/21 , 14:48 MARY FINN Dec 17, 2021 10:27 YADIRA NIEVES DO Dec 17, 2021 14:48
--- NOTE | 2021-12-17 13:12 | Progress Note ---
Subjective Subjective/Events-last exam Sitting up in chair. Pt states she feels better than yesterday but is still having frequent liquid stools, thought they were going to get some form last night but didn't. Saw a little bit of blood in stool yesterday. Objective Exam Last Set of Vital Signs Vital Signs Date Time Temp Pulse Resp B/P (MAP) Pulse Ox O2 Delivery O2 Flow Rate FiO2 12/17/21 12:39 71 12/17/21 11:43 36.4 18 95/58 (70) 99 Room Air 12/14/21 14:08 1.00 Capillary Refill : I&O Intake and Output 12/17/21 00:00 Intake Total 3020 ml Output Total 625 ml Balance 2395 ml Intake Oral 820 ml IV Total 2200 ml Output Urine Total 625 ml # Bowel Movements 3 General: Alert, No Acute Distress Lungs: Clear to Auscultation, Normal Air Movement Heart: Regular Rate, No Murmurs Abdomen: Normal Bowel Sounds, Other (mild diffuse ttp) Extremities: No Edema Neuro: Normal Speech Psych/Mental Status: Mood NL Results/Procedures Lab Laboratory Tests 12/16/21 18:07: Glucometer 128H 12/17/21 05:01: Glucometer 70 12/17/21 05:21: White Blood Count 11.0, Red Blood Count 3.49L, Hemoglobin 10.5L, Hematocrit 32L, Mean Corpuscular Volume 91, Mean Corpuscular Hemoglobin 30, Mean Corpuscular Hemoglobin Concent 33, Red Cell Distribution Width 13.7, Platelet Count 221, Mean Platelet Volume 11.4, Sodium Level 129L, Potassium Level 4.2, Chloride Level 109H, Carbon Dioxide Level 11L, Anion Gap 9, Blood Urea Nitrogen 24H, Creatinine 1.30, Estimat Glomerular Filtration Rate 43, BUN/Creatinine Ratio 18, Glucose Level 61L, Calcium Level 6.4L, Magnesium Level 1.9 12/17/21 06:24: Glucometer 103 12/17/21 11:09: Glucometer 105 Microbiology 12/13/21 C. difficile GDH Antigen & Toxins - Final, Complete 12/13/21 Gram Stain - Final, Complete 12/13/21 Wound Culture - Final, Complete Gram Pos Mixed Bacterial Carly Staphylococcus aureus 12/13/21 Urine Culture - Final, Complete NO GROWTH 12/13/21 Blood Culture - Preliminary, Resulted No growth Radiology CT abdomen: IMPRESSION: Extensive mural thickening of the distal colon and rectum suggestive of proctocolitis. There is a small amount of fluid within the anterior abdominal wall incision site, however, no other focal fluid collection is seen to indicate abscess. Assessment/Plan Assessment/Plan (1) C. difficile colitis Status: Acute Assessment & Plan: PO Vancomycin, IVF (2) Diabetes mellitus Status: Chronic Qualifiers: (3) Fistula Status: Chronic Assessment & Plan: Surgery consulted, does not appear acutely infected (4) Hypothyroidism Status: Chronic Assessment & Plan: Resume home levothyroxine (5) Mixed hyperlipidemia Status: Chronic (6) Primary hypertension Status: Chronic (7) Cardiomyopathy Status: Acute Assessment & Plan: 11/14/21 Echo with EF 25%, discharged with Lifevest last hospitalization. Hold Entresto due to JAILENE. Resume home carvedilol. Monitor fluid status closely. (8) Acute kidney insufficiency Status: Acute Assessment & Plan: Secondary to dehydration from diarrhea, IVF, monitor fluid status closely given CHF. 12/15 slowly improving 12/16 Cr down to 1.73 12/17 Cr down to 1.3 (9) DVT prophylaxis Status: Acute Assessment & Plan: Enoxaparin JULIA ARNETT MD Dec 17, 2021 13:12
--- NOTE | 2021-12-17 16:30 | Physician Query Clarification ---
Physician Query-General Query to Physician: Clinical Validation Clarification Dr Jessica Gresham Sepsis has been documented in the medical record. After study, has Sepsis been ruled out? If it has been ruled out, please document Sepsis ruled out" in the progress notes and/or discharge summary. 1. Yes Sepsis was ruled out/is not clinically valid 2. No Sepsis has not been ruled out/is clinically valid* *Please document the clinical evidence supportive of this diagnosis (even if now resolved) in the Progress Notes and Discharge Summary 3. Other, with explanation of the clinical findings 4. Clinically undetermined, no explanation for the clinical findings Additional information: C diff colitis, fistula: Vital Signs: HR 124, RR 16, BP 92/60, SpO2 100% sat on room air T 37.5, WBC 30.7, lactic acid 1.67, ER? Lactated 2 L bolus, abdominal wound cultured , cefepime IV Flagyl IV, p.o. vancomycin for suspected C. difficile, BC X 2 negative In responding to this query, please exercise your independent professional judgment. The purpose of this communication is to more accurately reflect the complexity of your patients condition. The fact that a question is asked does not imply that any particular answer is desired or expected. Thank you for your timely response to this clarification. Pattie Rodrigues MSN, RN Clinical Associate Material Handler PHYSICIAN RESPONSE: Based on the clinical findings in the record, please respond to the query above on this document as an addendum. Physician Response: Physician Response 2, sepsis is clinically valid- sepsis due to C diff If you have questions please contact: Crime Scene Examiner: Ext: Thank you for your time and cooperation. Clinical Associate Material Handler/Crime Scene Examiner This is a permanent part of the medical record PATTIE RODRIGUES Dec 17, 2021 16:29 JULIA GRESHAM MD Dec 20, 2021 12:32
[2021-12-17] MEDS: ENOXAPARIN INJECTION 30 MG/0.3 ML SYR SC SCH (20:42)
[2021-12-17] MEDS: AMITRIPTYLINE 25 MG (ELAVIL) TAB PO SCH (20:42)
[2021-12-17] MEDS: FENOFIBRATE 134 MG (LOFIBRA) CAPSULE PO SCH (20:42)
[2021-12-17] MEDS: LATANOPROST 0.005% (XALATAN) OPHTH SOLN 2.5 ML OU SCH (20:43)
[2021-12-18] MEDS: NS IV 1000 ML 1,000 ML IV SCH (03:56)
[2021-12-18 04:03] VITALS: BP 110/66
[2021-12-18] MEDS: VANCOMYCIN 125 MG CAPSULE PO SCH ×4 (05:26→23:29)
[2021-12-18] MEDS: LEVOTHYROXINE 150 MCG (LEVOTHROID) TAB PO SCH (05:26)
[2021-12-18 07:35] VITALS: BP 120/71
--- NOTE | 2021-12-18 07:39 | Progress Note - Hospitalist ---
Subjective HPI/CC On Admission Date Seen by Provider: Dec 18, 2021 Time Seen by Provider: 06:00 Subjective/Events-last exam Patient doing pretty well She is going to retirement at discharge Metabolic acidosis noted so checking ABG Starting sodium bicarb tablets Loose stools continue Appears to be very debilitated Review of Systems General: Fatigue, Malaise Gastrointestinal: Diarrhea Objective Exam Vital Signs Vital Signs Date Time Temp Pulse Resp B/P (MAP) Pulse Ox O2 Delivery O2 Flow Rate FiO2 12/18/21 07:35 35.9 88 18 120/71 (87) 98 Room Air 12/18/21 07:05 0.00 Capillary Refill : General Appearance: No Apparent Distress, WD/WN, Chronically ill Respiratory: Lungs Clear, Normal Breath Sounds Cardiovascular: Regular Rate, Rhythm Neurologic/Psychiatric: Alert, Oriented x3, Depressed Affect Results/Procedures Lab Laboratory Tests 12/18/21 07:17 Patient resulted labs reviewed. Assessment/Plan Assessment and Plan Assess & Plan/Chief Complaint Assessment: C. difficile colitis Metabolic acidosis due to diarrhea and volume depletion Myopathy Malnutrition Recent COVID infection with prior vaccination and 1 booster S/p ileostomy reversal with fistula and abscess October 2021 Dr Nieves CHF -Echo EF 20-25% -Lasix and spironolactone and Entresto and LifeVest History of type II [place] Afib HTN Diabetes CKD3a Recent hospitalization at [place] 10/20-11/11 following stay at [facility] 10/14 for pelvic abscess drainage. Plan: Sodium bicarb addition Ambulate Decrease IV fluids Needs retirement at discharge LORENZO MIMS DO Dec 18, 2021 07:39
[2021-12-18 07:43] LABS: BASOPHILS # (AUTO) 0.1 10^3/uL (0.0-0.1); BASOPHILS % (AUTO) 1 % (0-10); EOSINOPHILS # (AUTO) 0.3 10^3/uL (0.0-0.3); EOSINOPHILS % (AUTO) 4 % (0-10); HEMATOCRIT 27 % (35-52); LYMPHOCYTES # (AUTO) 0.9 10^3/uL (1.0-4.0); LYMPHOCYTES % (AUTO) 12 % (12-44); MEAN CORPUSCULAR HEMOGLOBIN 29 pg (25-34); MEAN CORPUSCULAR HGB CONC 33 g/dL (32-36); MEAN CORPUSCULAR VOLUME 89 fL (80-99); MEAN PLATELET VOLUME 11.3 fL (9.0-12.2); MONOCYTES # (AUTO) 0.4 10^3/uL (0.0-1.0); MONOCYTES % (AUTO) 5 % (0-12); NEUTROPHILS # (AUTO) 5.6 10^3/uL (1.8-7.8); NEUTROPHILS % (AUTO) 76 % (42-75); PLATELET COUNT 228 10^3/uL (130-400); WHITE BLOOD COUNT 7.3 10^3/uL (4.3-11.0)
[2021-12-18 07:55] LABS: ALBUMIN 1.7 GM/DL (3.2-4.5)
[2021-12-18 07:57] LABS: CALCIUM 6.2 MG/DL (8.5-10.1)
[2021-12-18 07:58] LABS: TOTAL PROTEIN 3.9 GM/DL (6.4-8.2)
[2021-12-18 07:59] LABS: BILIRUBIN,TOTAL 0.2 MG/DL (0.1-1.0)
[2021-12-18 08:01] LABS: CREATININE SERUM 1.03 MG/DL (0.60-1.30)
[2021-12-18] MEDS: OXYBUTYNIN (DITROPAN) 5 MG TAB PO SCH ×2 (08:33→20:28)
[2021-12-18] MEDS: SODIUM BICARBONATE 650 MG TABLET PO SCH ×3 (08:33→20:28)
[2021-12-18] MEDS: FERROUS SULF 325 MG (IRON) TAB PO SCH ×2 (08:33→20:28)
[2021-12-18] MEDS: LORATADINE (CLARITIN) 10 MG TAB PO SCH (08:33)
[2021-12-18] MEDS: ASPIRIN 81 MG CHEW (CHILDREN'S ASA) PO SCH (08:33)
--- NOTE | 2021-12-18 10:11 | Physical Therapy Daily Note ---
PT Daily Note-Current Subjective Patient agrees to bed exercises. Mental Status Patient Orientation: Normal For Age Attachments: IV life vest Transfers SCALE: Activities may be completed with or without assistive devices. 5-Ytbylxyrxi-hqcvptj completes the activity by him/herself with no assistance from a helper. 5-Set-up or Clean-up Assistance-helper sets up or cleans up; patient completes activity. [place] assists only prior to or following the activity. 4-Supervision or Touching Assistance-helper provides verbal cues and/or touching/steadying and/or contact guard assistance as patient completes activity. Assistance may be provided throughout the activity or intermittently. 3-Partial/Moderate Assistance-helper does LESS THAN HALF the effort. [place] lifts, holds or supports trunk or limbs, but provides less than half the effort. 2-Substantial/Maximal Assistance-helper does MORE THAN HALF the effort. [place] lifts or holds trunk or limbs and provides more than half the effort. 5-Uziuzksjj-nmigwv does ALL the effort. Patient does none of the effort to complete the activity. Or, the assistance of 2 or more helpers is required for the patient to complete the activity. If activity was not attempted, code reason: 7-Patient Refused. 9-Not Applicable-not attempted and the patient did not perform the activity before the current illness, exacerbation or injury. 10-Not Attempted due to Environmental Limitations-(lack of equipment, weather restraints, etc.). 88-Not Attempted due to Medical Conditions or Safety Concerns. Exercises Supine Ex: Bridging, Ankle pumps, Quad Set, Glut sets, Heel Slides, Straight leg raise Supine Reps: 15 Assessment Patient remains in bed with needs met. Increase activity as tolerated by patient. PT Penitentiary Goals Glycerine Plant Operator Goals PT Penitentiary Goals Time Frame: Jan 01, 2022 Roll Left & Right (QC): 6 Sit to Lying (QC): 6 Lying-Sitting on Side/Bed(QC): 6 Sit to Stand (QC): 6 Chair/Ukr-dr-Ecevx Xfer(QC): 6 Toilet Transfer (QC): 6 Walk 10 feet (QC): 6 Walk 50ft with 2 Turns (QC): 6 PT Plan Treatment/Plan Treatment Plan: Continue Plan of Care Treatment Plan: Bed Mobility, Education, Functional Activity Maikel, Functional Strength, Gait, Safety, Therapeutic Exercise, Transfers Treatment Duration: Jan 01, 2022 Frequency: 6 times per week Estimated Hrs Per Day: .25 hour per day Patient and/or Family Agrees t: Yes Time/GCodes Time In: 1000 Time Out: 1008 Total Billed Treatment Time: 8 Total Billed Treatment 1 visit EX 8 min ARELI JENNINGS PT Dec 18, 2021 10:11
--- NOTE | 2021-12-18 11:42 | Progress Note - Surgery ---
MARY FINN 12/18/21 1142: Subjective Date Seen by a Provider: Dec 18, 2021 Time Seen by a Provider: 10:45 Subjective/Events-last exam Pt resting comfortably. States she continues to feel stronger each day. She had a bowel movement this morning, that she believes is starting to firm up. She was started on soft diet last night and is tolerating well. States she has been ambulating without difficulty. She denies fever, chills, N/V, abdominal pain, chest pain, sob, or any other complaints at this time. Pt fistula had no drainage yesterday or this morning. Review of Systems General: No Chills, No Night Sweats HEENT: No Visual Changes Pulmonary: No Dyspnea, No Cough Cardiovascular: No: Chest Pain Gastrointestinal: Diarrhea; No: Nausea, Vomiting, Abdominal Pain, Melena Genitourinary: No Retention Objective Exam Vital Signs Date Time Temp Pulse Resp B/P (MAP) Pulse Ox O2 Delivery O2 Flow Rate FiO2 12/18/21 07:35 35.9 88 18 120/71 (87) 98 Room Air 12/18/21 07:05 Room Air 0.00 12/18/21 07:00 92 12/18/21 04:03 36.3 90 16 110/66 (81) 99 Room Air 12/18/21 01:00 86 12/17/21 23:24 36.2 81 18 106/63 (77) 99 Room Air 12/17/21 20:00 Room Air 12/17/21 19:34 35.9 88 18 108/64 (79) 80 Room Air 12/17/21 19:00 84 12/17/21 15:39 35.9 73 18 95/58 (70) 97 Room Air 12/17/21 12:39 71 12/17/21 11:43 36.4 80 18 95/58 (70) 99 Room Air I & O 12/18/21 07:00 Intake Total 1070 ml Output Total 800 ml Balance 270 ml Capillary Refill : General Appearance: No Apparent Distress, Chronically ill HEENT: PERRL/EOMI, Moist Mucous Membranes Neck: Non Tender, Supple Respiratory: Lungs Clear, Normal Breath Sounds, No Accessory Muscle Use, No Respiratory Distress Cardiovascular: Regular Rate, Rhythm, No Gallop, No Murmur Peripheral Pulses: 2+ Radial Pulses (R), 2+ Radial Pulses (L) Gastrointestinal: normal bowel sounds, non tender, soft; No guarding, No rebound; other (small fistula no drainage this am) Extremity: No Calf Tenderness, No Pedal Edema Neurologic/Psychiatric: Alert, Oriented x3, 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, Depressed Affect Skin: Normal Color, Warm/Dry Lymphatic: No Adenopathy (supraclavicular nodes) Results Lab Laboratory Tests 12/17/21 18:17: Glucometer 53*L 12/17/21 19:16: Glucometer 88 12/17/21 23:28: Glucometer 124H 12/18/21 05:23: Glucometer 83 12/18/21 07:17: White Blood Count 7.3, Red Blood Count 3.06L, Hemoglobin 9.0L, Hematocrit 27L, Mean Corpuscular Volume 89, Mean Corpuscular Hemoglobin 29, Mean Corpuscular Hemoglobin Concent 33, Red Cell Distribution Width 13.7, Platelet Count 228, Mean Platelet Volume 11.3, Immature Granulocyte % (Auto) 2, Neutrophils (%) (Auto) 76H, Lymphocytes (%) (Auto) 12, Monocytes (%) (Auto) 5, Eosinophils (%) (Auto) 4, Basophils (%) (Auto) 1, Neutrophils # (Auto) 5.6, Lymphocytes # (Auto) 0.9L, Monocytes # (Auto) 0.4, Eosinophils # (Auto) 0.3, Basophils # (Auto) 0.1, Immature Granulocyte # (Auto) 0.1, Sodium Level 133L, Potassium Level 4.0, Chloride Level 114H, Carbon Dioxide Level 14L, Anion Gap 5, Blood Urea Nitrogen 19H, Creatinine 1.03, Estimat Glomerular Filtration Rate 57, BUN/Creatinine Ratio 18, Glucose Level 99, Calcium Level 6.2L, Corrected Calcium 8.0L, Total Bilirubin 0.2, Aspartate Amino Transf (AST/SGOT) 18, Alanine Aminotransferase (ALT/SGPT) 14, Alkaline Phosphatase 50, Total Protein 3.9L, Albumin 1.7L 12/18/21 08:16: Bedside Blood Gas pH (LAB) 7.321, Bedside Blood Gas pCO2 (LAB) 29.0L, Bedside Blood Gas pO2 (LAB) 118H, Bedside Blood Gas HCO3 (LAB) 15.0*L, POC Blood Gas Total CO2 Calc 16L, Bedside Bl Gas O2 Saturation (Calc) 98, Bedside Arterial Blood Base Excess -11L Microbiology 12/13/21 C. difficile GDH Antigen & Toxins - Final, Complete 12/13/21 Gram Stain - Final, Complete 12/13/21 Wound Culture - Final, Complete Gram Pos Mixed Bacterial Carly Staphylococcus aureus 12/13/21 Urine Culture - Final, Complete NO GROWTH 12/13/21 Blood Culture - Preliminary, Resulted No growth Assessment/Plan Assessment/Plan Assessment/Plan C. Diff - causing Proctocolitis Low output fistula Hyponatremia CT shows thickening of colon wall, but no evidence of focal fluid collection or abscess. No surgical intervention; will continue to monitor low output fistula. IV fluids, encourage oral intake (magdalena protein), she is tolerating soft diet well. Continue oral vancomycin to treat the C. Diff, and electrolyte replacement. Continue to monitor labs. YADIRA NIEVES DO 12/18/21 1328: Subjective Time Seen by a Provider: 12:46 Subjective/Events-last exam Pt seen and examined, no changes. States she is feeling stronger and having more firm BMs. Review of Systems General: No Chills, No Night Sweats; Fatigue Pulmonary: No Dyspnea, No Cough Cardiovascular: No: Chest Pain Gastrointestinal: Diarrhea; No: Nausea, Vomiting, Abdominal Pain Neurological: Weakness (mostly secondary to malnutrition) Objective Exam General Appearance: No Apparent Distress, Chronically ill, Thin HEENT: Moist Mucous Membranes Respiratory: Lungs Clear, Normal Breath Sounds, No Accessory Muscle Use, No Respiratory Distress Cardiovascular: Regular Rate, Rhythm, No Murmur Gastrointestinal: non tender, soft; No guarding, No rebound; other (small fistula no drainage this am) Assessment/Plan Assessment/Plan Assessment/Plan C. Diff - causing Proctocolitis Low output fistula Hyponatremia CT shows thickening of colon wall, but no evidence of focal fluid collection or abscess. No surgical intervention; will continue to monitor low output fistula. IV fluids, encourage oral intake (magdalena protein), she is tolerating soft diet well. Continue oral vancomycin to treat the C. Diff, and electrolyte replacement. Continue to monitor labs. Supervisory-Addendum Brief Verification & Attestation Participated in pt care: history, MDM, physical Personally performed: exam, history, MDM, supervision of care Care discussed with: Medical Student Procedures: n/a Verification and Attestation of Medical Student E/M Service A medical student performed and documented this service. I then reviewed and verified all information documented by the medical student and made modifications to such information, when appropriate. I personally performed a physical exam, medical decision making and then discussed any differences between the notes and made revisions as necessary to create one note. Yadira Nieves , 12/18/21 , 13:28 MARY FINN Dec 18, 2021 11:42 YADIRA NIEVES DO Dec 18, 2021 13:28
[2021-12-18 11:56] VITALS: BP 117/61
[2021-12-18 16:14] VITALS: BP 109/64
[2021-12-18 19:14] VITALS: BP 116/63
[2021-12-18] MEDS: LATANOPROST 0.005% (XALATAN) OPHTH SOLN 2.5 ML OU SCH (20:27)
[2021-12-18] MEDS: FENOFIBRATE 134 MG (LOFIBRA) CAPSULE PO SCH (20:28)
[2021-12-18] MEDS: AMITRIPTYLINE 25 MG (ELAVIL) TAB PO SCH (20:28)
[2021-12-18] MEDS: ENOXAPARIN INJECTION 30 MG/0.3 ML SYR SC SCH (20:28)
[2021-12-18 23:37] VITALS: BP 119/65
[2021-12-19 03:40] VITALS: BP 139/64
[2021-12-19] MEDS: VANCOMYCIN 125 MG CAPSULE PO SCH ×4 (05:22→23:54)
[2021-12-19] MEDS: LEVOTHYROXINE 150 MCG (LEVOTHROID) TAB PO SCH (05:22)
[2021-12-19] MEDS: NS IV 1000 ML 1,000 ML IV SCH ×2 (05:23→17:48)
[2021-12-19 06:33] LABS: BASOPHILS % (AUTO) 1 % (0-10); EOSINOPHILS # (AUTO) 0.3 10^3/uL (0.0-0.3); EOSINOPHILS % (AUTO) 6 % (0-10); HEMATOCRIT 26 % (35-52); HEMOGLOBIN 8.6 g/dL (11.5-16.0); LYMPHOCYTES # (AUTO) 0.9 10^3/uL (1.0-4.0); LYMPHOCYTES % (AUTO) 20 % (12-44); MEAN CORPUSCULAR HEMOGLOBIN 29 pg (25-34); MEAN CORPUSCULAR HGB CONC 33 g/dL (32-36); MEAN CORPUSCULAR VOLUME 88 fL (80-99); MEAN PLATELET VOLUME 11.3 fL (9.0-12.2); MONOCYTES # (AUTO) 0.4 10^3/uL (0.0-1.0); MONOCYTES % (AUTO) 9 % (0-12); NEUTROPHILS # (AUTO) 2.7 10^3/uL (1.8-7.8); NEUTROPHILS % (AUTO) 62 % (42-75); PLATELET COUNT 246 10^3/uL (130-400); WHITE BLOOD COUNT 4.4 10^3/uL (4.3-11.0)
[2021-12-19 06:42] LABS: ALBUMIN 1.8 GM/DL (3.2-4.5)
[2021-12-19 06:43] LABS: POTASSIUM 4.1 MMOL/L (3.6-5.0)
[2021-12-19 06:44] LABS: CALCIUM 7.1 MG/DL (8.5-10.1)
[2021-12-19 06:47] LABS: BILIRUBIN,TOTAL 0.3 MG/DL (0.1-1.0)
[2021-12-19 06:49] LABS: CREATININE SERUM 0.89 MG/DL (0.60-1.30)
[2021-12-19] MEDS: ASPIRIN 81 MG CHEW (CHILDREN'S ASA) PO SCH (07:38)
[2021-12-19] MEDS: FERROUS SULF 325 MG (IRON) TAB PO SCH ×2 (07:38→21:04)
[2021-12-19] MEDS: OXYBUTYNIN (DITROPAN) 5 MG TAB PO SCH ×2 (07:38→21:04)
[2021-12-19] MEDS: LORATADINE (CLARITIN) 10 MG TAB PO SCH (07:38)
[2021-12-19] MEDS: SODIUM BICARBONATE 650 MG TABLET PO SCH ×3 (07:38→21:04)
[2021-12-19 07:48] VITALS: BP 113/60
--- NOTE | 2021-12-19 07:59 | Progress Note - Hospitalist ---
Subjective HPI/CC On Admission Date Seen by Provider: Dec 19, 2021 Time Seen by Provider: 11:30 Subjective/Events-last exam Doing the same No pain reported SNF needed Loose stools about the same Lab reviewed Review of Systems General: Fatigue, Malaise Gastrointestinal: Diarrhea Objective Exam Vital Signs Vital Signs Date Time Temp Pulse Resp B/P (MAP) Pulse Ox O2 Delivery O2 Flow Rate FiO2 12/19/21 15:16 35.7 86 18 133/68 (89) 96 Room Air 12/18/21 07:05 0.00 Capillary Refill : General Appearance: No Apparent Distress, WD/WN, Chronically ill, Thin Respiratory: Lungs Clear, Normal Breath Sounds Cardiovascular: Regular Rate, Rhythm Neurologic/Psychiatric: Alert, Oriented x3, No Motor/Sensory Deficits, 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 Results/Procedures Lab Laboratory Tests 12/19/21 05:25 Patient resulted labs reviewed. Assessment/Plan Assessment and Plan Assess & Plan/Chief Complaint Assessment: C. difficile colitis Metabolic acidosis due to diarrhea and volume depletion Myopathy Malnutrition Recent COVID infection with prior vaccination and 1 booster S/p ileostomy reversal with fistula and abscess October 2021 Dr Nieves CHF -Echo EF 20-25% -Lasix and spironolactone and Entresto and LifeVest History of type II [place] Afib HTN Diabetes CKD3a Recent hospitalization at [place] 10/20-11/11 following stay at [facility] 10/14 for pelvic abscess drainage. Plan: Sodium bicarb addition Ambulate Decrease IV fluids Needs intermediate at discharge LORENZO MIMS DO Dec 19, 2021 07:59
--- NOTE | 2021-12-19 11:05 | Progress Note - Surgery ---
MARY FINN 12/19/21 1105: Subjective Date Seen by a Provider: Dec 19, 2021 Time Seen by a Provider: 10:30 Subjective/Events-last exam Pt was getting ready to take a shower. States she continues to have diarrhea. Her nurse noted minimal blood in her stool last night, but none this morning. Pt states her weakness is better and she continues to tolerate increasing protein in her diet. She continues to ambulate and her weakness has improved. She denies fever, chills, N/V, chest pain, or SOB. Review of Systems General: No Chills, No Night Sweats HEENT: No Head Aches, No Visual Changes Pulmonary: No Cough Cardiovascular: No: Chest Pain Gastrointestinal: Diarrhea, Other (mild blood noted in stool yesterday. ); No: Nausea, Vomiting, Abdominal Pain Genitourinary: No Retention Objective Exam Vital Signs Date Time Temp Pulse Resp B/P (MAP) Pulse Ox O2 Delivery O2 Flow Rate FiO2 12/19/21 08:37 Room Air 12/19/21 07:48 36.0 88 18 113/60 (77) 99 Room Air 12/19/21 07:00 91 12/19/21 03:40 36.0 96 16 139/64 (89) 98 Room Air 12/19/21 01:00 87 12/18/21 23:37 36.2 86 16 119/65 (83) 97 Room Air 12/18/21 20:51 Room Air 12/18/21 19:14 35.9 77 18 116/63 (80) 99 Room Air 12/18/21 19:02 81 12/18/21 16:14 36.2 80 18 109/64 (79) 94 Room Air 12/18/21 12:28 87 12/18/21 11:56 36.0 87 18 117/61 (79) 97 Room Air I & O 12/19/21 07:00 Intake Total 1320 ml Balance 1320 ml Capillary Refill : General Appearance: No Apparent Distress, Chronically ill, Thin HEENT: PERRL/EOMI, Moist Mucous Membranes Neck: Non Tender, Supple Respiratory: No Respiratory Distress Cardiovascular: Regular Rate, Rhythm, No Murmur Peripheral Pulses: 2+ Radial Pulses (R), 2+ Radial Pulses (L) Gastrointestinal: non tender, soft; No guarding, No rebound; other (small fistula no drainage this am) Extremity: No Calf Tenderness, No Pedal Edema Neurologic/Psychiatric: Alert, Oriented x3, 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, Depressed Affect Skin: Normal Color, Warm/Dry Lymphatic: No Adenopathy (supraclavicular nodes) Results Lab Laboratory Tests 12/18/21 11:56: Glucometer 115H 12/18/21 20:40: Glucometer 129H 12/19/21 05:18: Glucometer 73 12/19/21 05:25: White Blood Count 4.4, Red Blood Count 2.93L, Hemoglobin 8.6L, Hematocrit 26L, Mean Corpuscular Volume 88, Mean Corpuscular Hemoglobin 29, Mean Corpuscular Hemoglobin Concent 33, Red Cell Distribution Width 13.7, Platelet Count 246, Mean Platelet Volume 11.3, Immature Granulocyte % (Auto) 3, Neutrophils (%) (Auto) 62, Lymphocytes (%) (Auto) 20, Monocytes (%) (Auto) 9, Eosinophils (%) (Auto) 6, Basophils (%) (Auto) 1, Neutrophils # (Auto) 2.7, Lymphocytes # (Auto) 0.9L, Monocytes # (Auto) 0.4, Eosinophils # (Auto) 0.3, Basophils # (Auto) 0.0, Immature Granulocyte # (Auto) 0.1, Sodium Level 138, Potassium Level 4.1, Chloride Level 116H, Carbon Dioxide Level 15L, Anion Gap 7, Blood Urea Nitrogen 17, Creatinine 0.89, Estimat Glomerular Filtration Rate 68, BUN/Creatinine Ratio 19, Glucose Level 81, Calcium Level 7.1L, Corrected Calcium 8.9, Total Bilirubin 0.3, Aspartate Amino Transf (AST/SGOT) 31, Alanine Aminotransferase (ALT/SGPT) 16, Alkaline Phosphatase 55, Total Protein 4.0L, Albumin 1.8L Microbiology 12/13/21 C. difficile GDH Antigen & Toxins - Final, Complete 12/13/21 Gram Stain - Final, Complete 12/13/21 Wound Culture - Final, Complete Gram Pos Mixed Bacterial Carly Staphylococcus aureus 12/13/21 Urine Culture - Final, Complete NO GROWTH 12/13/21 Blood Culture - Preliminary, Resulted No growth Assessment/Plan Assessment/Plan Assessment/Plan C. Diff - causing Proctocolitis Low output fistula Hyponatremia She continues to tolerate protein and soft diet well. Continue oral vancomycin to treat the C. Diff, and electrolyte replacement. She may be getting transferred to a rehab facility in [place] on Monday per family request. CHRIS NIEVES DO 12/19/21 1202: Subjective Time Seen by a Provider: 11:23 Subjective/Events-last exam Pt seen and examined, no changes. States she feels like she is doing ok and is waiting to get sent to SNF. Review of Systems General: No Chills, No Night Sweats Pulmonary: No Cough Cardiovascular: No: Chest Pain Gastrointestinal: No: Nausea, Vomiting, Abdominal Pain Objective Exam General Appearance: No Apparent Distress, Chronically ill HEENT: Moist Mucous Membranes Respiratory: Lungs Clear, Normal Breath Sounds, No Accessory Muscle Use, No Respiratory Distress Cardiovascular: Regular Rate, Rhythm, No Murmur Gastrointestinal: non tender, soft; No guarding, No rebound; other (small fistula no drainage this am) Assessment/Plan Assessment/Plan Assessment/Plan C. Diff - causing Proctocolitis Low output fistula Hyponatremia She continues to tolerate protein and soft diet well. Continue oral vancomycin to treat the C. Diff, and electrolyte replacement. She may be getting transferred to a rehab facility in [place] on Monday per family request. Supervisory-Addendum Brief Verification & Attestation Participated in pt care: history, MDM, physical Personally performed: exam, history, MDM, supervision of care Care discussed with: Medical Student Procedures: n/a Verification and Attestation of Medical Student E/M Service A medical student performed and documented this service. I then reviewed and verified all information documented by the medical student and made modifications to such information, when appropriate. I personally performed a physical exam, medical decision making and then discussed any differences between the notes and made revisions as necessary to create one note. Chris Nieves , 12/19/21 , 12:02 MARY FINN Dec 19, 2021 11:05 CHRIS NIEVES DO Dec 19, 2021 12:02
[2021-12-19 11:09] VITALS: BP 112/67
[2021-12-19 15:16] VITALS: BP 133/68
[2021-12-19 19:53] VITALS: BP 133/70
[2021-12-19] MEDS: AMITRIPTYLINE 25 MG (ELAVIL) TAB PO SCH (21:04)
[2021-12-19] MEDS: FENOFIBRATE 134 MG (LOFIBRA) CAPSULE PO SCH (21:04)
[2021-12-19] MEDS: ENOXAPARIN INJECTION 30 MG/0.3 ML SYR SC SCH (21:04)
[2021-12-19] MEDS: LATANOPROST 0.005% (XALATAN) OPHTH SOLN 2.5 ML OU SCH (21:05)
[2021-12-19 23:05] VITALS: BP 147/72
[2021-12-20 03:06] VITALS: BP 110/60
[2021-12-20] MEDS: VANCOMYCIN 125 MG CAPSULE PO SCH ×4 (05:51→23:26)
[2021-12-20] MEDS: LEVOTHYROXINE 150 MCG (LEVOTHROID) TAB PO SCH (05:51)
[2021-12-20 06:21] LABS: BASOPHILS # (AUTO) 0.1 10^3/uL (0.0-0.1); BASOPHILS % (AUTO) 1 % (0-10); EOSINOPHILS # (AUTO) 0.2 10^3/uL (0.0-0.3); EOSINOPHILS % (AUTO) 4 % (0-10); HEMATOCRIT 27 % (35-52); HEMOGLOBIN 8.9 g/dL (11.5-16.0); LYMPHOCYTES # (AUTO) 0.8 10^3/uL (1.0-4.0); LYMPHOCYTES % (AUTO) 15 % (12-44); MEAN CORPUSCULAR HEMOGLOBIN 30 pg (25-34); MEAN CORPUSCULAR HGB CONC 34 g/dL (32-36); MEAN CORPUSCULAR VOLUME 88 fL (80-99); MEAN PLATELET VOLUME 10.9 fL (9.0-12.2); MONOCYTES # (AUTO) 0.3 10^3/uL (0.0-1.0); MONOCYTES % (AUTO) 5 % (0-12); NEUTROPHILS # (AUTO) 4.1 10^3/uL (1.8-7.8); NEUTROPHILS % (AUTO) 74 % (42-75); PLATELET COUNT 282 10^3/uL (130-400); WHITE BLOOD COUNT 5.6 10^3/uL (4.3-11.0)
[2021-12-20 06:46] LABS: ALBUMIN 1.9 GM/DL (3.2-4.5); BILIRUBIN,TOTAL 0.2 MG/DL (0.1-1.0); CALCIUM 7.3 MG/DL (8.5-10.1); CREATININE SERUM 1.09 MG/DL (0.60-1.30); POTASSIUM 4.2 MMOL/L (3.6-5.0); TOTAL PROTEIN 4.1 GM/DL (6.4-8.2)
--- NOTE | 2021-12-20 07:53 | Progress Note - Surgery ---
BIANCA BARTLETT 12/20/21 0753: Subjective Date Seen by a Provider: Dec 20, 2021 Time Seen by a Provider: 07:41 Subjective/Events-last exam Patient reports feeling well this morning. She had a normal, formed stool the other day but then it became watery again. She does feel as though it is getting less watery each day. Denies any nausea/vomiting, sweats/chills or palpitations. Review of Systems General: No Chills, No Night Sweats Pulmonary: No Cough Gastrointestinal: No: Nausea, Vomiting, Abdominal Pain Objective Exam Vital Signs Date Time Temp Pulse Resp B/P (MAP) Pulse Ox O2 Delivery O2 Flow Rate FiO2 12/20/21 03:06 36.5 104 18 110/60 (77) 98 Room Air 12/20/21 01:00 101 12/19/21 23:05 36.2 87 18 147/72 (97) 96 Room Air 12/19/21 21:05 Room Air 12/19/21 19:53 36.3 86 18 133/70 (91) 99 Room Air 12/19/21 19:00 99 12/19/21 15:16 35.7 86 18 133/68 (89) 96 Room Air 12/19/21 12:54 98 12/19/21 11:09 36.5 87 20 112/67 (82) 99 Room Air 12/19/21 08:37 Room Air I & O 12/20/21 06:59 Intake Total 1250 ml Balance 1250 ml Capillary Refill : General Appearance: No Apparent Distress, WD/WN, Chronically ill, Thin HEENT: Moist Mucous Membranes Neck: Non Tender, Supple Respiratory: Lungs Clear, Normal Breath Sounds Cardiovascular: Regular Rate, Rhythm Peripheral Pulses: 2+ Radial Pulses (R), 2+ Radial Pulses (L) Gastrointestinal: non tender, soft, other (small fistula no drainage this am) Extremity: No Calf Tenderness, No Pedal Edema Neurologic/Psychiatric: Alert, Oriented x3, 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 Skin: Normal Color, Warm/Dry Lymphatic: No Adenopathy (supraclavicular nodes) Results Lab Laboratory Tests 12/19/21 11:14: Glucometer 126H 12/19/21 15:27: Glucometer 148H 12/20/21 05:48: Glucometer 83 12/20/21 06:11: White Blood Count 5.6, Red Blood Count 3.02L, Hemoglobin 8.9L, Hematocrit 27L, Mean Corpuscular Volume 88, Mean Corpuscular Hemoglobin 30, Mean Corpuscular He moglobin Concent 34, Red Cell Distribution Width 14.1, Platelet Count 282, Mean Platelet Volume 10.9, Immature Granulocyte % (Auto) 2, Neutrophils (%) (Auto) 74, Lymphocytes (%) (Auto) 15, Monocytes (%) (Auto) 5, Eosinophils (%) (Auto) 4, Basophils (%) (Auto) 1, Neutrophils # (Auto) 4.1, Lymphocytes # (Auto) 0.8L, Monocytes # (Auto) 0.3, Eosinophils # (Auto) 0.2, Basophils # (Auto) 0.1, Immature Granulocyte # (Auto) 0.1, Sodium Level 137, Potassium Level 4.2, Chloride Level 116H, Carbon Dioxide Level 15L, Anion Gap 6, Blood Urea Nitrogen 15, Creatinine 1.09, Estimat Glomerular Filtration Rate 53, BUN/Creatinine Ratio 14, Glucose Level 83, Calcium Level 7.3L, Corrected Calcium 9.0, Total Bilirubin 0.2, Aspartate Amino Transf (AST/SGOT) 33, Alanine Aminotransferase (ALT/SGPT) 18, Alkaline Phosphatase 58, Total Protein 4.1L, Albumin 1.9L Microbiology 12/13/21 C. difficile GDH Antigen & Toxins - Final, Complete 12/13/21 Gram Stain - Final, Complete 12/13/21 Wound Culture - Final, Complete Gram Pos Mixed Bacterial Carly Staphylococcus aureus 12/13/21 Urine Culture - Final, Complete NO GROWTH 12/13/21 Blood Culture - Final, Complete No growth Assessment/Plan Assessment/Plan Assessment/Plan C. Diff - causing Proctocolitis Low output fistula Hyponatremia She continues to tolerate protein and soft diet well. Continue oral vancomycin to treat the C. Diff, and electrolyte replacement. She may be getting transferred to a rehab facility in [place] today per family request. CHRIS NIEVES DO 12/20/21 1414: Subjective Time Seen by a Provider: 13:18 Subjective/Events-last exam Pt seen and examined, no changes. States she is feeling stronger. Review of Systems General: No Chills, No Night Sweats Pulmonary: No Cough Cardiovascular: No: Chest Pain Gastrointestinal: No: Nausea, Vomiting, Abdominal Pain Objective Exam General Appearance: No Apparent Distress, Chronically ill, Thin HEENT: Moist Mucous Membranes Respiratory: Lungs Clear, Normal Breath Sounds, No Accessory Muscle Use, No Respiratory Distress Cardiovascular: Regular Rate, Rhythm, No Murmur Gastrointestinal: non tender, soft, other (small fistula no drainage this am) Extremity: No Calf Tenderness Neurologic/Psychiatric: Alert, Oriented x3 Assessment/Plan Assessment/Plan Assessment/Plan C. Diff - causing Proctocolitis Low output fistula Hyponatremia She continues to tolerate protein and soft diet well. Continue oral vancomycin t o treat the C. Diff, and electrolyte replacement. She may be getting transferred to a rehab facility in [place] today per family request. Supervisory-Addendum Brief Verification & Attestation Participated in pt care: history, MDM, physical Personally performed: exam, history, MDM, supervision of care Care discussed with: Medical Student Procedures: n/a Verification and Attestation of Medical Student E/M Service A medical student performed and documented this service. I then reviewed and verified all information documented by the medical student and made modifications to such information, when appropriate. I personally performed a physical exam, medical decision making and then discussed any differences between the notes and made revisions as necessary to create one note. Chris Nieves , 12/20/21 , 14:14 BIANCA BARTLETT Dec 20, 2021 07:53 CHRIS NIEVES DO Dec 20, 2021 14:14
[2021-12-20 08:00] VITALS: BP 101/59
[2021-12-20] MEDS: ASPIRIN 81 MG CHEW (CHILDREN'S ASA) PO SCH (08:12)
[2021-12-20] MEDS: OXYBUTYNIN (DITROPAN) 5 MG TAB PO SCH ×2 (08:12→20:43)
[2021-12-20] MEDS: NS IV 1000 ML 1,000 ML IV SCH (08:12)
[2021-12-20] MEDS: SODIUM BICARBONATE 650 MG TABLET PO SCH ×3 (08:12→20:43)
[2021-12-20] MEDS: FERROUS SULF 325 MG (IRON) TAB PO SCH ×2 (08:12→20:43)
[2021-12-20] MEDS: LORATADINE (CLARITIN) 10 MG TAB PO SCH (08:13)
--- NOTE | 2021-12-20 10:04 | Occupational Ther Daily Note ---
OT Current Status-Daily Note Subjective Pt alert, lying in bed. Pt agrees to therapy. Physician entered room for rounds and told pt that she may discharge to [facility] today. No c/o pain. Mental Status/Objective Patient Orientation: Person, Place, Time, Situation Attachments: IV, Telemetry, Other-See Comments (life vest) ADL-Treatment Pt stated she has already been to bathroom today. Min A for supine to EOB due to weakness. SBA to ambulate from EOB to recliner using FWW. Pt then washed hands and face prior to eating breakfast. Pt able to complete set up and use regular utensils to eat. Pt fatigues quickly though no LOB noted with function al activities. Therapy Code Descriptions/Definitions Functional [place] Measure: 0=Not Assessed/NA 4=Minimal Assistance 1=Total Assistance 5=Supervision or Setup 2=Maximal Assistance 6=Modified [place] 3=Moderate Assistance 7=Complete IndependenceSCALE: Activities may be completed with or without assistive devices. 7-Aqqzkymujo-toyslyv completes the activity by him/herself with no assistance from a helper. 5-Set-up or Clean-up Assistance-helper sets up or cleans up; patient completes activity. [place] assists only prior to or following the activity. 4-Supervision or Touching Assistance-helper provides verbal cues and/or touching/steadying and/or contact guard assistance as patient completes activity. Assistance may be provided throughout the activity or intermittently. 3-Partial/Moderate Assistance-helper does LESS THAN HALF the effort. [place] lifts, holds or supports trunk or limbs, but provides less than half the effort. 2-Substantial/Maximal Assistance-helper does MORE THAN HALF the effort. [place] lifts or holds trunk or limbs and provides more than half the effort. 0-Duswngcde-wofyne does ALL the effort. Patient does none of the effort to complete the activity. Or, the assistance of 2 or more helpers is required for the patient to complete the activity. If activity was not attempted, code reason: 7-Patient Refused. 9-Not Applicable-not attempted and the patient did not perform the activity before the current illness, exacerbation or injury. 10-Not Attempted due to Environmental Limitations-(lack of equipment, weather restraints, etc.). 88-Not Attempted due to Medical Conditions or Safety Concerns. Other Treatment Pt completed 2 B UE exercises against gravity, 1 set 10 reps. Skilled instruction for correct technique during exercises. After session, pt sitting in recliner with call light/phone in reach. All needs met in room. OT Mcc Goals Mcc Goals Time Frame: Jan 06, 2022 Eating (QC): 5 Oral Hygiene (QC): 5 Toileting Hygiene (QC): 5 Shower/Bathe Self (QC): 4 Upper Body Dressing (QC): 5 Lower Body Dressing (QC): 4 On/Off Footwear (QC): 4 1=Demonstrate adherence to instructed precautions during ADL tasks. 2=Patient will verbalize/demonstrate understanding of assistive devices/modifications for ADL. 3=Patient will improve strength/tolerance for activity to enable patient to perform ADL's. OT Education/Plan Problem List/Assessment Assessment: Decreased Activ Tolerance, Decreased UE Strength, Impaired Self- Care Skills Discharge Recommendations Plan/Recommendations: Continue POC Treatment Plan/Plan of Care Patient would benefit from OT for education, treatment and training to promote independence in ADL's, mobility, safety and/or upper extremity function for ADL's. Plan of Care: ADL Retraining, Cognitive Retraining, Functional Mobility, Group Exercise/Act as Ind, UE Funct Exercise/Act Treatment Duration: Jan 06, 2022 Frequency: 3 times per week (3-5x/week) Estimated Hrs Per Day: .25 hour per day Agreement: Yes Rehab Potential: Fair Time/GCodes Start Time: 09:43 Stop Time: 10:00 Total Time Billed (hr/min): 17 Billed Treatment Time 1 visit-FA 1 (17 min) ELIZABETH BUTLER Dec 20, 2021 10:04
[2021-12-20] MEDS ORDERED: SACU1TAB2 PO (10:28)
[2021-12-20] MEDS ORDERED: VANC125C5 PO (10:28)
[2021-12-20] MEDS ORDERED: ENOX40DI8 SC (10:28)
[2021-12-20] MEDS ORDERED: NF-SODBICA PO (10:28)
--- NOTE | 2021-12-20 10:29 | Discharge Inst-Skilled Nursing ---
Discharge Inst-Skilled NF Reconcile Patient Problems Problems Reviewed?: Yes Patient Instructions Patient Problems: Debility C diff Entercutaneous fistula Consult/Follow Up/Orders Follow Up Appt.: PCP 1 week Skilled NF Admit to: Certification (SNF) I certify that SNF services are required to be given on an inpatient basis because of the above named patient's need for longterm care on a continuing basis for the conditions(s) for which he/she was receiving inpatient hospital services prior to his/her transfer to the SNF. Intermediate Facility Order: Nursing Services, Plant Control Aide-Evaluate & Treat, Physical Therapy-Evaluate & Treat Oxygen Delivery Method: Room Air Discharge Diet: No Restrictions Daily Activity as Tolerated: Yes Resuscitation Status: Full Code New & Resume Previous Orders New Medications: Enoxaparin Sodium (Enoxaparin Sodium) 40 Mg/0.4 Ml Syringe 40 MG SC HS for 14 Days, SYRINGE Sodium Bicarbonate (Sodium Bicarbonate) 650 Mg Tablet 650 MG PO TID for 14 Days, TAB Vancomycin HCl (Vancomycin HCl) 125 Mg Capsule 125 MG PO QID for 14 Days, CAP Continued Medications: Acetaminophen (Tylenol Arthritis) 650 Mg Tablet.er 650 MG PO Q6H PRN for PAIN-MILD (1-4) OR TEMPATURE, TAB Amitriptyline HCl (Amitriptyline HCl) 100 Mg Tablet 100 MG PO HS, TAB Aspirin (Children's Aspirin) 81 Mg Tab.chew 81 MG PO DAILY, #30 TAB Atorvastatin Calcium (Lipitor) 40 Mg Tablet 40 MG PO 1700, #30 TAB Carvedilol (Carvedilol) 3.125 Mg Tablet 3.125 MG PO BID WITH MEALS, #60 TAB Cetirizine HCl (Cetirizine HCl) 10 Mg Tablet 10 MG PO DAILY, TAB Fenofibrate (Fenofibrate) 160 Mg Tablet 160 MG PO HS, TAB Ferrous Sulfate (Iron) 325 Mg Tablet 325 MG PO BID, TAB Latanoprost (Xalatan) 0.005 % Drops 1 DROP OU HS, DROPS Levothyroxine Sodium (Levothyroxine Sodium) 150 Mcg Tablet 150 MCG PO DAILY, TAB Oxybutynin Chloride (Oxybutynin Chloride) 5 Mg Tablet 5 MG PO BID, TAB Sacubitril/Valsartan (Entresto 24 mg-26 mg Tablet) 24 Mg-26 Mg Tablet 1 TAB PO BID for 30 Days, TAB (This prescription has been renewed) Discontinued Medications: Furosemide (Furosemide) 40 Mg Tablet 40 MG PO DAILY, #30 TAB Potassium Chloride (Klor-Con M20) 20 Meq Tab.er.prt 20 MEQ PO DAILY@0700, #30 EA Spironolactone (Spironolactone) 25 Mg Tablet 25 MG PO DAILY, #30 TAB Nena Muniz Dec 20, 2021 10:28 NENA MUNIZ DO Dec 20, 2021 10:29
--- NOTE | 2021-12-20 10:29 | Discharge Summary ---
Discharge Summary Hospital Course Hospital Course Date of Admission: Dec 13, 2021 at 19:18 Admission Diagnosis : Family Physician/Provider: Hermann Zhang MD Date of Discharge: 12/20/21 Discharge Diagnosis: [ ] Hospital Course: [ ] Labs and Pending Lab Test: Laboratory Tests 12/19/21 11:14: Glucometer 126H 12/19/21 15:27: Glucometer 148H 12/20/21 05:48: Glucometer 83 12/20/21 06:11: White Blood Count 5.6, Red Blood Count 3.02L, Hemoglobin 8.9L, Hematocrit 27L, Mean Corpuscular Volume 88, Mean Corpuscular Hemoglobin 30, Mean Corpuscular Hemoglobin Concent 34, Red Cell Distribution Width 14.1, Platelet Count 282, Mean Platelet Volume 10.9, Immature Granulocyte % (Auto) 2, Neutrophils (%) (Auto) 74, Lymphocytes (%) (Auto) 15, Monocytes (%) (Auto) 5, Eosinophils (%) (Auto) 4, Basophils (%) (Auto) 1, Neutrophils # (Auto) 4.1, Lymphocytes # (Auto) 0.8L, Monocytes # (Auto) 0.3, Eosinophils # (Auto) 0.2, Basophils # (Auto) 0.1, Immature Granulocyte # (Auto) 0.1, Sodium Level 137, Potassium Level 4.2, Chloride Level 116H, Carbon Dioxide Level 15L, Anion Gap 6, Blood Urea Nitrogen 15, Creatinine 1.09, Estimat Glomerular Filtration Rate 53, BUN/Creatinine Ratio 14, Glucose Level 83, Calcium Level 7.3L, Corrected Calcium 9.0, Total Bilirubin 0.2, Aspartate Amino Transf (AST/SGOT) 33, Alanine Aminotransferase (ALT/SGPT) 18, Alkaline Phosphatase 58, Total Protein 4.1L, Albumin 1.9L Microbiology 12/13/21 C. difficile GDH Antigen & Toxins - Final, Complete 12/13/21 Gram Stain - Final, Complete 12/13/21 Wound Culture - Final, Complete Gram Pos Mixed Bacterial Carly Staphylococcus aureus 12/13/21 Urine Culture - Final, Complete NO GROWTH 12/13/21 Blood Culture - Final, Complete No growth Home Meds Active Sodium Bicarbonate 650 Mg Tablet 650 Mg PO TID 14 Days Enoxaparin Sodium 40 Mg/0.4 Ml Syringe 40 Mg SC HS 14 Days Vancomycin HCl 125 Mg Capsule 125 Mg PO QID 14 Days Entresto 24 mg-26 mg Tablet (Sacubitril/Valsartan) 24 Mg-26 Mg Tablet 1 Tab PO BID 30 Days Furosemide 40 Mg Tablet 40 Mg PO DAILY Klor-Con M20 (Potassium Chloride) 20 Meq Tab.er.prt 20 Meq PO DAILY@0700 Children's Aspirin (Aspirin) 81 Mg Tab.chew 81 Mg PO DAILY Spironolactone 25 Mg Tablet 25 Mg PO DAILY Carvedilol 3.125 Mg Tablet 3.125 Mg PO BID WITH MEALS Lipitor (Atorvastatin Calcium) 40 Mg Tablet 40 Mg PO 1700 Reported Levothyroxine Sodium 150 Mcg Tablet 150 Mcg PO DAILY Tylenol Arthritis (Acetaminophen) 650 Mg Tablet.er 650 Mg PO Q6H PRN Oxybutynin Chloride 5 Mg Tablet 5 Mg PO BID Xalatan (Latanoprost) 0.005 % Drops 1 Drop OU HS Iron (Ferrous Sulfate) 325 Mg Tablet 325 Mg PO BID Amitriptyline HCl 100 Mg Tablet 100 Mg PO HS Fenofibrate 160 Mg Tablet 160 Mg PO HS Cetirizine HCl 10 Mg Tablet 10 Mg PO DAILY Discharge Instructions Discharge Diet: No Restrictions Discharge Physical Examination Vital Signs Vital Signs Date Time Temp Pulse Resp B/P (MAP) Pulse Ox O2 Delivery O2 Flow Rate FiO2 12/20/21 08:00 35.9 91 18 101/59 (73) 98 Room Air 12/18/21 07:05 0.00 Allergies: Coded Allergies: Penicillins (Verified Allergy, Unknown, 08/20/20) raspberry (Verified Allergy, Unknown, 08/20/20) Discharge Summary Date of Admission Dec 13, 2021 at 19:18 Date of Discharge Discharge Date: Dec 20, 2021 Discharge Diagnosis Assessment: C. difficile colitis Metabolic acidosis due to diarrhea and volume depletion Myopathy Malnutrition Recent COVID infection with prior vaccination and 1 booster S/p ileostomy reversal with fistula and abscess October [address] Dr Nieves CHF -Echo EF 20-25% -Lasix and spironolactone and Entresto and LifeVest History of type II CA Afib HTN Diabetes CKD3a Recent hospitalization at [place] 10/20-11/11 following stay at [facility] 10/14 for pelvic abscess drainage. Plan: Sodium bicarb addition Ambulate Decrease IV fluids Needs care home at discharge LORENZO MIMS DO Dec 20, 2021 10:29
--- NOTE | 2021-12-20 10:51 | Progress Note ---
JOSE ARMANDO SINGLETON 12/20/21 1051: Progress Note Hospital course: Zoe Garcia is a 76y/o who was admitted on 12/13 after presenting to the ER due to diarrhea and generalized weakness. She was found to have c.diff and was started on oral vancomycin. Surgery was consulted for fistula present from ileostomy reversal done on 11/25/21. Abdominal CT done showed thickening of colon wall but no evidence of fecal fluid collection or abscess. JAILENE also present on admission due to dehydration from the diarrhea, treated with IVF. PT and OT started on 12/17. Metabolic acidosis found on 12/18 and she was then started on sodium bicarb tablets. Has received treatment for the c.diff w/ vancomycin and electrolytes have been managed throughout course of stay. Fistula has had minimal drainage. She will be hopefully transferring to [place] to a swing bed today. NENA MIMS DO 12/21/21 0517: Supervisory-Addendum Brief Verification & Attestation Participated in pt care: history, MDM, physical Personally performed: exam, history, MDM, supervision of care Care discussed with: Medical Student Procedures: n/a Results interpretation: Verified all documentation Verification and Attestation of Medical Student E/M Service A medical student performed and documented this service in my presence. I reviewed and verified all information documented by the medical student and made modifications to such information, when appropriate. I personally performed the physical exam and medical decision making. Nena Mims, Dec 21, 2021,05:17 JOSE ARMANDO SINGLETON Dec 20, 2021 10:51 NENA MIMS DO Dec 21, 2021 05:17
[2021-12-20 11:34] VITALS: BP 108/60
--- NOTE | 2021-12-20 11:39 | Physical Therapy Daily Note ---
PT Daily Note-Current Subjective Patient agrees to PT. Mental Status Patient Orientation: Normal For Age Attachments: IV life vest Transfers SCALE: Activities may be completed with or without assistive devices. 8-Vatkmiiqfc-xokyeiq completes the activity by him/herself with no assistance from a helper. 5-Set-up or Clean-up Assistance-helper sets up or cleans up; patient completes activity. [place] assists only prior to or following the activity. 4-Supervision or Touching Assistance-helper provides verbal cues and/or touching/steadying and/or contact guard assistance as patient completes activity. Assistance may be provided throughout the activity or intermittently. 3-Partial/Moderate Assistance-helper does LESS THAN HALF the effort. [place] lifts, holds or supports trunk or limbs, but provides less than half the effort. 2-Substantial/Maximal Assistance-helper does MORE THAN HALF the effort. [place] lifts or holds trunk or limbs and provides more than half the effort. 1-Zhssjeoya-psrnwb does ALL the effort. Patient does none of the effort to complete the activity. Or, the assistance of 2 or more helpers is required for the patient to complete the activity. If activity was not attempted, code reason: 7-Patient Refused. 9-Not Applicable-not attempted and the patient did not perform the activity before the current illness, exacerbation or injury. 10-Not Attempted due to Environmental Limitations-(lack of equipment, weather restraints, etc.). 88-Not Attempted due to Medical Conditions or Safety Concerns. Sit to Stand (QC): 5 Chair/Xqt-cu-Sktna Xfer(QC): 5 Toilet Transfer (QC): 5 Gait Training Distance: 200' in room Walk 10 feet (QC): 5 Walk 50 ft with 2 Turns(QC): 5 Walk 150 ft (QC): 5 Gait Assistive Device: FWW safe and functional with no deviation Assessment Patient in restroom for BM after PT. Plan dismissal to in OSH this week per report. PT Correctional Maintenance Technician Goals [facility] Goals PT Correctional Maintenance Technician Goals Time Frame: Jan 01, 2022 Roll Left & Right (QC): 6 Sit to Lying (QC): 6 Lying-Sitting on Side/Bed(QC): 6 Sit to Stand (QC): 6 Chair/Ivc-kq-Bdfvj Xfer(QC): 6 Toilet Transfer (QC): 6 Walk 10 feet (QC): 6 Walk 50ft with 2 Turns (QC): 6 PT Plan Treatment/Plan Treatment Plan: Continue Plan of Care Treatment Plan: Bed Mobility, Education, Functional Activity Maikel, Functional Strength, Gait, Safety, Therapeutic Exercise, Transfers Treatment Duration: Jan 01, 2022 Frequency: 6 times per week Estimated Hrs Per Day: .25 hour per day Patient and/or Family Agrees t: Yes Time/GCodes Time In: 1030 Time Out: 1044 Total Billed Treatment Time: 14 Total Billed Treatment 1 visit FA 14 min ARELI JENNINGS PT Dec 20, 2021 11:39
[2021-12-20 15:25] VITALS: BP 121/75
[2021-12-20 20:23] VITALS: BP 148/78
[2021-12-20] MEDS: AMITRIPTYLINE 25 MG (ELAVIL) TAB PO SCH (20:43)
[2021-12-20] MEDS: FENOFIBRATE 134 MG (LOFIBRA) CAPSULE PO SCH (20:43)
[2021-12-20] MEDS: LATANOPROST 0.005% (XALATAN) OPHTH SOLN 2.5 ML OU SCH (20:44)
--- NOTE | 2021-12-20 20:50 | Progress Note - Hospitalist ---
Subjective HPI/CC On Admission Date Seen by Provider: Dec 20, 2021 Time Seen by Provider: 09:30 Subjective/Events-last exam Pt is doing well Tentatively discharged to [facility] bed Monitoring closely Loose stools continue Bicarb is 15, continue on salt sodium bicarb tablets Heart rate is 100 Review of Systems General: Fatigue, Malaise Objective Exam Vital Signs Vital Signs Date Time Temp Pulse Resp B/P (MAP) Pulse Ox O2 Delivery O2 Flow Rate FiO2 12/21/21 03:22 36.3 95 18 139/79 (99) 99 Room Air 12/18/21 07:05 0.00 Capillary Refill : General Appearance: No Apparent Distress, WD/WN, Chronically ill Respiratory: Lungs Clear, Normal Breath Sounds Cardiovascular: Regular Rate, Rhythm Neurologic/Psychiatric: Alert, Oriented x3, No Motor/Sensory Deficits, 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 Results/Procedures Lab Laboratory Tests 12/20/21 06:11 Patient resulted labs reviewed. Assessment/Plan Assessment and Plan Assess & Plan/Chief Complaint Assessment: C. 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 Plan: Sodium bicarb addition Ambulate Decrease IV fluids Needs retirement at discharge LORENZO MIMS DO Dec 20, 2021 20:50
[2021-12-20] MEDS ORDERED: ENOXAPARIN 40 MG/0.4 ML (LOVENOX) SYR SC SCH (21:00)
[2021-12-20 23:25] VITALS: BP 120/67
[2021-12-21] MEDS: NS IV 1000 ML 1,000 ML IV SCH (02:10)
[2021-12-21 03:22] VITALS: BP 139/79
[2021-12-21] MEDS: LEVOTHYROXINE 150 MCG (LEVOTHROID) TAB PO SCH (05:44)
[2021-12-21] MEDS: VANCOMYCIN 125 MG CAPSULE PO SCH ×2 (05:44→11:38)
[2021-12-21 06:46] LABS: BASOPHILS # (AUTO) 0.1 10^3/uL (0.0-0.1); BASOPHILS % (AUTO) 1 % (0-10); EOSINOPHILS # (AUTO) 0.3 10^3/uL (0.0-0.3); EOSINOPHILS % (AUTO) 5 % (0-10); HEMATOCRIT 25 % (35-52); HEMOGLOBIN 8.3 g/dL (11.5-16.0); LYMPHOCYTES # (AUTO) 1.2 10^3/uL (1.0-4.0); LYMPHOCYTES % (AUTO) 24 % (12-44); MEAN CORPUSCULAR HEMOGLOBIN 29 pg (25-34); MEAN CORPUSCULAR HGB CONC 33 g/dL (32-36); MEAN CORPUSCULAR VOLUME 88 fL (80-99); MEAN PLATELET VOLUME 10.8 fL (9.0-12.2); MONOCYTES # (AUTO) 0.4 10^3/uL (0.0-1.0); MONOCYTES % (AUTO) 9 % (0-12); NEUTROPHILS # (AUTO) 3.1 10^3/uL (1.8-7.8); NEUTROPHILS % (AUTO) 61 % (42-75); PLATELET COUNT 293 10^3/uL (130-400)
[2021-12-21 07:07] LABS: ALBUMIN 1.7 GM/DL (3.2-4.5); POTASSIUM 4.3 MMOL/L (3.6-5.0)
[2021-12-21 07:08] LABS: CALCIUM 7.9 MG/DL (8.5-10.1)
[2021-12-21 07:10] LABS: TOTAL PROTEIN 3.8 GM/DL (6.4-8.2)
[2021-12-21 07:11] LABS: BILIRUBIN,TOTAL 0.2 MG/DL (0.1-1.0)
[2021-12-21 07:13] LABS: CREATININE SERUM 0.86 MG/DL (0.60-1.30)
[2021-12-21 08:00] VITALS: BP 101/58
--- NOTE | 2021-12-21 08:47 | Progress Note - Surgery ---
BIANCA BARTLETT 12/21/21 0847: Subjective Date Seen by a Provider: Dec 21, 2021 Time Seen by a Provider: 07:44 Subjective/Events-last exam Patient reports feeling about the same today. She was still having runny bowel movements yesterday and thinks she saw a minimal amount of blood in the stool last night. She denies any nausea/vomiting or abdominal pain. Review of Systems General: No Chills, No Night Sweats Pulmonary: No Cough Cardiovascular: No: Chest Pain Gastrointestinal: Diarrhea, Hematochezia; No: Nausea, Vomiting, Abdominal Pain Objective Exam Vital Signs Date Time Temp Pulse Resp B/P (MAP) Pulse Ox O2 Delivery O2 Flow Rate FiO2 12/21/21 08:00 36.7 97 16 101/58 (72) 97 Room Air 12/21/21 07:13 91 12/21/21 03:22 36.3 95 18 139/79 (99) 99 Room Air 12/21/21 01:00 94 12/20/21 23:25 36.6 89 18 120/67 (84) 98 Room Air 12/20/21 20:45 Room Air 12/20/21 20:23 36.0 90 19 148/78 (101) 100 Room Air 12/20/21 19:00 91 12/20/21 15:25 36.3 84 18 121/75 (90) 100 Room Air 12/20/21 13:00 88 12/20/21 11:34 36.0 85 18 108/60 (76) 96 Room Air I & O 12/21/21 07:00 Intake Total 1397 ml Balance 1397 ml Capillary Refill : General Appearance: No Apparent Distress, WD/WN, Chronically ill HEENT: Moist Mucous Membranes Neck: Non Tender, Supple Respiratory: Lungs Clear, Normal Breath Sounds Cardiovascular: Regular Rate, Rhythm Peripheral Pulses: 2+ Radial Pulses (R), 2+ Radial Pulses (L) Gastrointestinal: non tender, soft, other (small fistula no drainage this am) Neurologic/Psychiatric: Alert, Oriented x3, 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 Skin: Normal Color, Warm/Dry Lymphatic: No Adenopathy (supraclavicular nodes) Results Lab Laboratory Tests 12/20/21 11:33: Glucometer 85 12/20/21 15:31: Glucometer 121H 12/20/21 20:26: Glucometer 146H 12/21/21 05:50: Sodium Level 138, Potassium Level 4.3, Chloride Level 115H, Carbon Dioxide Level 16L, Anion Gap 7, Blood Urea Nitrogen 15, Creatinine 0.86, Estimat Glomerular Filtration Rate 70, BUN/Creatinine Ratio 17, Glucose Level 79, Calcium Level 7.9L, Corrected Calcium 9.7, Total Bilirubin 0.2, Aspartate Amino Transf (AST/SGOT) 31, Alanine Aminotransferase (ALT/SGPT) 15, Alkaline Phosphatase 49, Total Protein 3.8L, Albumin 1.7L 12/21/21 06:23: White Blood Count 5.0, Red Blood Count 2.83L, Hemoglobin 8.3L, Hematocrit 25L, Mean Corpuscular Volume 88, Mean Corpuscular Hemoglobin 29, Mean Corpuscular Hemoglobin Concent 33, Red Cell Distribution Width 14.2, Platelet Count 293, Mean Platelet Volume 10.8, Immature Granulocyte % (Auto) 1, Neutrophils (%) (Auto) 61, Lymphocytes (%) (Auto) 24, Monocytes (%) (Auto) 9, Eosinophils (%) (Auto) 5, Basophils (%) (Auto) 1, Neutrophils # (Auto) 3.1, Lymphocytes # (Auto) 1.2, Monocytes # (Auto) 0.4, Eosinophils # (Auto) 0.3, Basophils # (Auto) 0.1, Immature Granulocyte # (Auto) 0.1 Microbiology 12/13/21 C. difficile [facility] Antigen & Toxins - Final, Complete 12/13/21 Gram Stain - Final, Complete 12/13/21 Wound Culture - Final, Complete Gram Pos Mixed Bacterial Carly Staphylococcus aureus 12/13/21 Urine Culture - Final, Complete NO GROWTH 12/13/21 Blood Culture - Final, Complete No growth Assessment/Plan Assessment/Plan Assessment/Plan C. Diff - causing Proctocolitis Low output fistula Hyponatremia She continues to tolerate protein and soft diet well. Continue oral vancomycin to treat the C. Diff, and electrolyte replacement. She may be getting transferred to a rehab facility in [place] today per family request. CHRIS NIEVES DO 12/21/21 1346: Subjective Time Seen by a Provider: 11:41 Subjective/Events-last exam Pt seen and examined, no new changes. Review of Systems General: No Chills, No Night Sweats; Fatigue Cardiovascular: No: Chest Pain Gastrointestinal: Diarrhea; No: Nausea, Vomiting, Abdominal Pain Objective Exam General Appearance: No Apparent Distress, Chronically ill HEENT: Moist Mucous Membranes Respiratory: Lungs Clear, Normal Breath Sounds, No Accessory Muscle Use, No Respiratory Distress Cardiovascular: Regular Rate, Rhythm, No Murmur Gastrointestinal: non tender, other (small fistula no drainage this am) Assessment/Plan Assessment/Plan Assessment/Plan C. Diff - causing Proctocolitis Low output fistula Hyponatremia She continues to tolerate protein and soft diet well. Continue oral vancomycin to treat the C. Diff, and electrolyte replacement. She may be getting transferred to a rehab facility in [place] today per family request. Supervisory-Addendum Brief Verification & Attestation Participated in pt care: history, MDM, physical Personally performed: exam, history, MDM, supervision of care Care discussed with: Medical Student Procedures: n/a Verification and Attestation of Medical Student E/M Service A medical student performed and documented this service. I then reviewed and verified all information documented by the medical student and made modifications to such information, when appropriate. I personally performed a physical exam, medical decision making and then discussed any differences between the notes and made revisions as necessary to create one note. Chris Nieves , 12/21/21 , 13:46 BIANCA BARTLETT Dec 21, 2021 08:47 CHRIS NIEVES DO Dec 21, 2021 13:46
[2021-12-21] MEDS: FERROUS SULF 325 MG (IRON) TAB PO SCH (10:07)
[2021-12-21] MEDS: OXYBUTYNIN (DITROPAN) 5 MG TAB PO SCH (10:07)
[2021-12-21] MEDS: LORATADINE (CLARITIN) 10 MG TAB PO SCH (10:07)
[2021-12-21] MEDS: ASPIRIN 81 MG CHEW (CHILDREN'S ASA) PO SCH (10:07)
[2021-12-21] MEDS: SODIUM BICARBONATE 650 MG TABLET PO SCH ×2 (10:07→13:20)
[2021-12-21] MEDS ORDERED: PANTOPRAZOLE 40 MG (PROTONIX) TAB PO SCH (10:15)
--- NOTE | 2021-12-21 10:26 | Progress Note - Hospitalist ---
Subjective HPI/CC On Admission Date Seen by Provider: Dec 21, 2021 Objective Exam Vital Signs Vital Signs Date Time Temp Pulse Resp B/P (MAP) Pulse Ox O2 Delivery O2 Flow Rate FiO2 12/21/21 15:39 36.8 90 17 121/65 (83) 96 Room Air 12/21/21 15:28 0.00 Capillary Refill : Results/Procedures Lab Laboratory Tests 12/21/21 05:50 12/21/21 06:23 Patient resulted labs reviewed. Assessment/Plan Assessment and Plan Assess & Plan/Chief Complaint Assessment: C. difficile colitis Metabolic acidosis due to diarrhea and volume depletion Myopathy Malnutrition Recent COVID infection with prior vaccination and 1 booster S/p ileostomy reversal with fistula and abscess October 2021 Dr Nieves CHF -Echo EF 20-25% -Lasix and spironolactone and Entresto and LifeVest History of type II [place] Afib HTN Diabetes CKD3a Recent hospitalization at [place] 10/20-11/11 following stay at [facility] 10/14 for pelvic abscess drainage. Plan: Sodium bicarb addition Ambulate Decrease IV fluids Needs usp at discharge LORENZO MIMS DO Dec 21, 2021 10:26
[2021-12-21] MEDS ORDERED: PANT40TA52 PO (10:38)
--- NOTE | 2021-12-21 10:38 | Discharge Summary ---
Discharge Summary Hospital Course Was the Problem List Reviewed?: Yes Problems/Dx: (1) C. difficile colitis Status: Acute (2) Atrial fibrillation Status: Chronic (3) Physical debility Status: Chronic (4) Cardiomyopathy Status: Acute (5) Peritoneal fistula Status: Acute Hospital Course Date of Admission: Dec 13, 2021 at 19:18 Admission Diagnosis : Family Physician/Provider: Hermann Zhang MD Date of Discharge: 12/21/21 Discharge Diagnosis: [ ] Hospital Course: Zoe Garcia is a 76y/o who was admitted on 12/13 after presenting to the ER due to diarrhea and generalized weakness. She was found to have c.diff and was started on oral vancomycin. Surgery was consulted for fistula present from ileos maryam reversal done on 11/25/21. Abdominal CT done showed thickening of colon wall but no evidence of fecal fluid collection or abscess. JAILENE also present on admission due to dehydration from the diarrhea, treated with IVF. PT and OT started on 12/17. Metabolic acidosis found on 12/18 and she was then started on sodium bicarb tablets. Has received treatment for the c.diff w/ vancomycin and electrolytes have been managed throughout course of stay. Fistula has had minimal drainage. She will be hopefully transferring to [place] to a swing bed today. Labs and Pending Lab Test: Laboratory Tests 12/20/21 11:33: Glucometer 85 12/20/21 15:31: Glucometer 121H 12/20/21 20:26: Glucometer 146H 12/21/21 05:50: Sodium Level 138, Potassium Level 4.3, Chloride Level 115H, Carbon Dioxide Level 16L, Anion Gap 7, Blood Urea Nitrogen 15, Creatinine 0.86, Estimat Glomerular Filtration Rate 70, BUN/Creatinine Ratio 17, Glucose Level 79, Calcium Level 7.9L, Corrected Calcium 9.7, Total Bilirubin 0.2, Aspartate Amino Transf (AST/SGOT) 31, Alanine Aminotransferase (ALT/SGPT) 15, Alkaline Phosphatase 49, Total Protein 3.8L, Albumin 1.7L 12/21/21 06:23: White Blood Count 5.0, Red Blood Count 2.83L, Hemoglobin 8.3L, Hematocrit 25L, Mean Corpuscular Volume 88, Mean Corpuscular Hemoglobin 29, Mean Corpuscular Hem oglobin Concent 33, Red Cell Distribution Width 14.2, Platelet Count 293, Mean Platelet Volume 10.8, Immature Granulocyte % (Auto) 1, Neutrophils (%) (Auto) 61, Lymphocytes (%) (Auto) 24, Monocytes (%) (Auto) 9, Eosinophils (%) (Auto) 5, Basophils (%) (Auto) 1, Neutrophils # (Auto) 3.1, Lymphocytes # (Auto) 1.2, Monocytes # (Auto) 0.4, Eosinophils # (Auto) 0.3, Basophils # (Auto) 0.1, Immature Granulocyte # (Auto) 0.1 Microbiology 12/13/21 C. difficile [facility] Antigen & Toxins - Final, Complete 12/13/21 Gram Stain - Final, Complete 12/13/21 Wound Culture - Final, Complete Gram Pos Mixed Bacterial Carly Staphylococcus aureus 12/13/21 Urine Culture - Final, Complete NO GROWTH 12/13/21 Blood Culture - Final, Complete No growth Home Meds Active Sodium Bicarbonate 650 Mg Tablet 650 Mg PO TID 14 Days Enoxaparin Sodium 40 Mg/0.4 Ml Syringe 40 Mg SC HS 14 Days Vancomycin HCl 125 Mg Capsule 125 Mg PO QID 14 Days Entresto 24 mg-26 mg Tablet (Sacubitril/Valsartan) 24 Mg-26 Mg Tablet 1 Tab PO BID 30 Days Furosemide 40 Mg Tablet 40 Mg PO DAILY Klor-Con M20 (Potassium Chloride) 20 Meq Tab.er.prt 20 Meq PO DAILY@0700 Children's Aspirin (Aspirin) 81 Mg Tab.chew 81 Mg PO DAILY Spironolactone 25 Mg Tablet 25 Mg PO DAILY Carvedilol 3.125 Mg Tablet 3.125 Mg PO BID WITH MEALS Lipitor (Atorvastatin Calcium) 40 Mg Tablet 40 Mg PO 1700 Reported Levothyroxine Sodium 150 Mcg Tablet 150 Mcg PO DAILY Tylenol Arthritis (Acetaminophen) 650 Mg Tablet.er 650 Mg PO Q6H PRN Oxybutynin Chloride 5 Mg Tablet 5 Mg PO BID Xalatan (Latanoprost) 0.005 % Drops 1 Drop OU HS Iron (Ferrous Sulfate) 325 Mg Tablet 325 Mg PO BID Amitriptyline HCl 100 Mg Tablet 100 Mg PO HS Fenofibrate 160 Mg Tablet 160 Mg PO HS Cetirizine HCl 10 Mg Tablet 10 Mg PO DAILY Assessment/Pt Instructions [place] Discharge Planning: <30 minutes discharge planning Discharge Instructions Discharge Diet: No Restrictions Discharge Physical Examination Vital Signs Vital Signs Date Time Temp Pulse Resp B/P (MAP) Pulse Ox O2 Delivery O2 Flow Rate FiO2 12/21/21 08:00 36.7 97 16 101/58 (72) 97 Room Air 12/18/21 07:05 0.00 General Appearance: No Apparent Distress, WD/WN, Chronically ill, Thin Allergies: Coded Allergies: Penicillins (Verified Allergy, Unknown, 08/20/20) raspberry (Verified Allergy, Unknown, 08/20/20) Discharge Summary Date of Admission Dec 13, 2021 at 19:18 Date of Discharge Discharge Date: Dec 21, 2021 Discharge Diagnosis Assessment: C. difficile colitis Metabolic acidosis due to diarrhea and volume depletion Myopathy Malnutrition Recent COVID infection with prior vaccination and 1 booster S/p ileostomy reversal with fistula and abscess October 2021 Dr Nieves CHF -Echo EF 20-25% -Lasix and spironolactone and Entresto and LifeVest History of type II [place] Afib HTN Diabetes CKD3a Recent hospitalization at [place] 10/20-11/11 following stay at [facility] 10/14 for pelvic abscess drainage. Plan: Sodium bicarb addition Ambulate Decrease IV fluids Needs mcfp at discharge LORENZO MIMS DO Dec 21, 2021 10:38
[2021-12-21 11:05] VITALS: BP 96/53
--- NOTE | 2021-12-21 11:41 | Occupational Ther Daily Note ---
OT Current Status-Daily Note Subjective Pt alert in bathroom. Pt agrees to therapy. Mental Status/Objective Patient Orientation: Person, Place, Time, Situation Attachments: IV, Telemetry, Other-See Comments (Life Vest) ADL-Treatment Pt requested change of gown, due to tubing pt required min A to don gown. Pt independent in toilet hygiene. Pt CGA in lower body dressing. Pt required min A from sit to stand with FWW from toilet. Pt CGA, for hand hygiene standing at sink. Pt ambulated from bathroom to bed with FWW , CGA due to fatigue. Pt EOB to Supine, Min A to assist with LE. Pt left supine in bed with call light/phone in reach. All needs met in room. Therapy Code Descriptions/Definitions Functional [place] Measure: 0=Not Assessed/NA 4=Minimal Assistance 1=Total Assistance 5=Supervision or Setup 2=Maximal Assistance 6=Modified [place] 3=Moderate Assistance 7=Complete IndependenceSCALE: Activities may be completed with or without assistive devices. 2-Kuelltzirl-mlzbyfw completes the activity by him/herself with no assistance from a helper. 5-Set-up or Clean-up Assistance-helper sets up or cleans up; patient completes activity. [place] assists only prior to or following the activity. 4-Supervision or Touching Assistance-helper provides verbal cues and/or touching/steadying and/or contact guard assistance as patient completes activity. Assistance may be provided throughout the activity or intermittently. 3-Partial/Moderate Assistance-helper does LESS THAN HALF the effort. [place] lifts, holds or supports trunk or limbs, but provides less than half the effort. 2-Substantial/Maximal Assistance-helper does MORE THAN HALF the effort. [place] lifts or holds trunk or limbs and provides more than half the effort. 4-Chkpznneg-ujgrny does ALL the effort. Patient does none of the effort to complete the activity. Or, the assistance of 2 or more helpers is required for the patient to complete the activity. If activity was not attempted, code reason: 7-Patient Refused. 9-Not Applicable-not attempted and the patient did not perform the activity before the current illness, exacerbation or injury. 10-Not Attempted due to Environmental Limitations-(lack of equipment, weather restraints, etc.). 88-Not Attempted due to Medical Conditions or Safety Concerns. Upper Body Dressing (QC): 3 (Min A) Lower Body Dressing (QC): 3 (Min A) Toileting Hygiene (QC): 6 Toilet Transfer (QC): 3 (Min A) OT Nursing Home Goals Nursing Home Goals Time Frame: Jan 06, 2022 Eating (QC): 5 Oral Hygiene (QC): 5 Toileting Hygiene (QC): 5 Shower/Bathe Self (QC): 4 Upper Body Dressing (QC): 5 Lower Body Dressing (QC): 4 On/Off Footwear (QC): 4 1=Demonstrate adherence to instructed precautions during ADL tasks. 2=Patient will verbalize/demonstrate understanding of assistive devices/modifications for ADL. 3=Patient will improve strength/tolerance for activity to enable patient to perform ADL's. OT Education/Plan Problem List/Assessment Assessment: Decreased Activ Tolerance, Impaired Bed Mobility, Impaired Coordination, Impaired Self-Care Skills Discharge Recommendations Plan/Recommendations: Continue POC Treatment Plan/Plan of Care Patient would benefit from OT for education, treatment and training to promote independence in ADL's, mobility, safety and/or upper extremity function for ADL's. Plan of Care: ADL Retraining, Cognitive Retraining, Functional Mobility, Group Exercise/Act as Ind, UE Funct Exercise/Act Treatment Duration: Jan 06, 2022 Frequency: 3 times per week (3-5x/week) Estimated Hrs Per Day: .25 hour per day Agreement: Yes Rehab Potential: Fair Time/GCodes Start Time: 11:09 Stop Time: 11:28 Total Time Billed (hr/min): 19 Billed Treatment Time 1 visit ADL 1 (19min) ELIZABETH BUTLER Dec 21, 2021 11:41
[2021-12-21 15:28] VITALS: BP 96/53
[2021-12-21 15:39] VITALS: BP 121/65
--- NOTE | 2021-12-27 10:04 | Physician Query Clarification ---
PQ-Intro New Diagnosis Admission/Discharge Admission Date: Dec 13, 2021 at 19:18 Discharge Date: Dec 21, 2021 at 16:13 Dr. Muniz, The medical record reflects the following clinical scenario: History/Risk Factors: recent hx Covid, Sepsis, peritoneal fistula, c diff colitis Clinical Findings: generalized weakness, diarrhea, serology positive for covid on 12/21 Treatment: IV Cefepime, IV Vancomycin Question: What condition best reflects the above clinical scenario? Please document a response in the Progress Noter or Discharge Summary. 1. Covid present on admission 2. Covid developed after admission 3. Hx covid not present on this admission 4. post covid syndrome 5. Other, with explanation of the clinical findings. 6. Clinically undetermined, no explanation for the clinical findings. PHYSICIAN RESPONSE What condition reflects above: Other, explanation/clinical finding (colonized o nly) In responding to this query, please exercise your independent professional judgment. The purpose of this communication is to more accurately reflect the complexity of your patients condition. The fact that a question is asked does not imply that any particular answer is desired or expected. Thank you for your timely response to this clarification. Requestors name: Nathaniel THIS PHYSICIAN QUERY FORM IS A PERMANENT PART OF THE MEDICAL RECORD NATHANIEL CHAVIS Dec 27, 2021 10:04 LORENZO MUNIZ DO Dec 27, 2021 11:08
== END 2021-12-21 16:13 | disposition swing bed (61) | DRG 871 ==
LOC: EDUNIT# 16:35 → ER 16:37 → CSD 19:18 → 4TH 12-14 13:58
PROVIDERS: ADMIT Family Medicine; ATTEND Internal Medicine
DX: A41.89 Other specified sepsis (principal); K65.9 Peritonitis, unspecified; A04.72 Enterocolitis due to Clostridium difficile, not specified as recurrent; E87.1 Hypo-osmolality and hyponatremia; N17.9 Acute kidney failure, unspecified; E87.2 Acidosis; E46 Unspecified protein-calorie malnutrition; I13.0 Hypertensive heart and chronic kidney disease with heart failure and stage 1 through stage 4 chronic kidney disease, or unspecified chronic kidney disease; E86.0 Dehydration; G72.9 Myopathy, unspecified; Z68.21 Body mass index [BMI] 21.0-21.9, adult; I48.91 Unspecified atrial fibrillation; E78.2 Mixed hyperlipidemia; E11.22 Type 2 diabetes mellitus with diabetic chronic kidney disease; N18.31 Chronic kidney disease, stage 3a; I50.9 Heart failure, unspecified; K21.9 Gastro-esophageal reflux disease without esophagitis; M06.9 Rheumatoid arthritis, unspecified; M19.91 Primary osteoarthritis, unspecified site; E03.9 Hypothyroidism, unspecified; Z87.891 Personal history of nicotine dependence; Z90.5 Acquired absence of kidney; Z85.43 Personal history of malignant neoplasm of ovary; Z88.0 Allergy status to penicillin; Z91.018 Allergy to other foods; Z79.82 Long term (current) use of aspirin; Z82.61 Family history of arthritis; Z83.3 Family history of diabetes mellitus; Z82.49 Family history of ischemic heart disease and other diseases of the circulatory system; Z22.8 Carrier of other infectious diseases
CPT/HCPCS: 36410; 36415; 36600; 51702; 71045; 74176; 76937; 80048; 80053; 81000; 82805; 82947; 83605; 83735; 85007; 85025; 85027; 87040; 87070; 87077; 87088; 87186; 87205; 87324; 87449; 87636; 96361; 96365; 96367

== ENCOUNTER 2021-12-28 10:00 | Inpatient (IN) | payer MEDICARE ==
[~2021-12-28] VITALS: Ht 157.6 cm; Wt 117.8 kg
[~2021-12-28 10:00] MED LIST changes: +ENOX40DI8 SC; +VANC125C5 PO
[2021-12-28] MEDS ORDERED: NS IV 500 ML 500 ML IV PRN (14:30)
[2021-12-28 15:07] VITALS: BP 97/75
[2021-12-28] MEDS ORDERED: LEFL20TA18 PO (15:48)
[2021-12-28] MEDS ORDERED: ERGO1250 PO (15:48)
[2021-12-28] MEDS ORDERED: CHOL4POW4 PO (15:48)
[2021-12-28] MEDS ORDERED: MEGE400O20 PO (15:48)
[2021-12-28] MEDS ORDERED: AMLO-250 PO (15:48)
[2021-12-28] MEDS ORDERED: LEVO125T6 PO (15:48)
[2021-12-28] MEDS ORDERED: RT-ALBUTEROL SULF 2.5 MG/3 ML PRE-MIX VIAL INH PRN (16:00)
[2021-12-28 16:25] LABS: BASOPHILS % (AUTO) 1 % (0-10); EOSINOPHILS # (AUTO) 0.1 10^3/uL (0.0-0.3); EOSINOPHILS % (AUTO) 2 % (0-10); LYMPHOCYTES # (AUTO) 1.4 10^3/uL (1.0-4.0); LYMPHOCYTES % (AUTO) 26 % (12-44); MEAN CORPUSCULAR HEMOGLOBIN 30 pg (25-34); MEAN CORPUSCULAR HGB CONC 33 g/dL (32-36); MEAN CORPUSCULAR VOLUME 89 fL (80-99); MONOCYTES # (AUTO) 0.5 10^3/uL (0.0-1.0); MONOCYTES % (AUTO) 10 % (0-12); NEUTROPHILS # (AUTO) 3.2 10^3/uL (1.8-7.8); NEUTROPHILS % (AUTO) 62 % (42-75); PLATELET COUNT 255 10^3/uL (130-400); WHITE BLOOD COUNT 5.2 10^3/uL (4.3-11.0)
[2021-12-28 16:27] LABS: HEMOGLOBIN 6.7 g/dL (11.5-16.0)
[2021-12-28 16:28] LABS: HEMATOCRIT 20 % (35-52)
[2021-12-28 16:36] LABS: ALBUMIN 1.9 GM/DL (3.2-4.5); POTASSIUM 4.3 MMOL/L (3.6-5.0)
[2021-12-28 16:37] LABS: CALCIUM 6.8 MG/DL (8.5-10.1)
[2021-12-28 16:38] LABS: TOTAL PROTEIN 4.1 GM/DL (6.4-8.2)
[2021-12-28 16:40] LABS: BILIRUBIN,TOTAL 0.2 MG/DL (0.1-1.0)
[2021-12-28 16:42] LABS: CREATININE SERUM 1.14 MG/DL (0.60-1.30)
[2021-12-28] MEDS: VANCOMYCIN 125 MG CAPSULE PO SCH ×2 (17:33→23:41)
[2021-12-28] MEDS ORDERED: NS IV 500 ML 500 ML IV SCH (18:00)
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
[2021-12-28 20:15] VITALS: BP 131/65
[2021-12-28 20:43] VITALS: BP 131/70
[2021-12-28] MEDS: LATANOPROST 0.005% (XALATAN) OPHTH SOLN 2.5 ML OU SCH (20:53)
[2021-12-28] MEDS ORDERED: OXYBUTYNIN (DITROPAN) 5 MG TAB ONE (20:57)
[2021-12-28] MEDS ORDERED: SACUBITRIL/VALSARTAN 24/26 MG (ENTRESTO) TABLET ONE (20:57)
[2021-12-28] MEDS ORDERED: NON-FORMULARY MEDICATION 1 EA EA (Amitriptyline HCl 100 MG) PO SCH (21:00)
[2021-12-28] MEDS: SACUBITRIL/VALSARTAN 24/26 MG (ENTRESTO) TABLET PO SCH (21:01)
[2021-12-28] MEDS: OXYBUTYNIN (DITROPAN) 5 MG TAB PO SCH (21:01)
--- NOTE | 2021-12-28 21:05 | Consultation - Surgery ---
History of Present Illness History of Present Illness Patient Consulted On(argelia/time) 12/28/21 20:59 Time Seen by Provider: 18:12 History of Present Illness Surgery asked to consult regarding hx of fistula, C. Diff colitis, rectal bleed, Anemia. HPI per IM:Patient is a 76 yo female admitted for D. difficile infection and continued rectal bleeding. She states that she is still experiencing diarrhea but it has slowed down somewhat. She admits fatigue, gas pains, lightheadedness when she sits up, SOB, and bright red blood seen after bowel movements. She denies cough, headache, pain with bowel movement, dysuria or other urinary symptoms, and muscle pain. She recalls a previous occurrence of C diff. infection 2 years ago and was discharged on 12/21/2021 from [facility] after being treated for her current infection (vancomycin). She has a previous history of peritoneal fistula. Pt is well known to me and I was seeing her during last admit. She was at a SNF in [place] when she started having fatigue, near syncope and rectal bleeding. When I saw her tonight she stated she was getting some "stuff" out of fistula and it looked possibly bloody. She was having minimal abdominal pain. The nurse states she was admitted for sepsis. Allergies and Home Medications Allergies Coded Allergies: Penicillins (Verified Allergy, Unknown, 08/20/20) raspberry (Verified Allergy, Unknown, 08/20/20) Patient Home Medication List Home Medication List Reviewed: Yes Acetaminophen (Tylenol Arthritis) 650 Mg Tablet.er, 650 MG PO Q6H PRN for PAIN- MILD (1-4) OR TEMPATURE, (Reported) Entered as Reported by: CHAZ HARDING on 11/12/21 1145 Last Action: Continued Amitriptyline HCl (Amitriptyline HCl) 100 Mg Tablet, 100 MG PO HS, (Reported) Entered as Reported by: CHAZ HARDING on 03/03/20 1433 Last Action: Converted Amlodipine Besylate (Amlodipine Besylate) 5 Mg Tablet, 5 MG PO DAILY, (Reported) Entered as Reported by: CHAZ HARDING on 12/28/21 1548 Last Action: Reviewed Atorvastatin Calcium (Lipitor) 40 Mg Tablet, 40 MG PO 1700 Prescribed by: LORENZO MIMS on 11/25/21 2134 Last Action: Reviewed Carvedilol (Carvedilol) 3.125 Mg Tablet, 3.125 MG PO BID WITH MEALS Prescribed by: LORENZO MIMS on 11/25/212133 Last Action: Continued Cetirizine HCl (Cetirizine HCl) 10 Mg Tablet, 10 MG PO DAILY, (Reported) Entered as Reported by: CHAZ HARDING on 02/28/20 1109 Last Action: Reviewed Cholestyramine (with Sugar) (Cholestyramine Packet) 4 Gram Powd.pack, 4 GM PO BID, (Reported) Entered as Reported by: CHAZ HARDING on 12/28/211547 Last Action: Reviewed Ergocalciferol (Vitamin D2) (Vitamin D2) 1,250 Mcg (70186 Unit) Capsule, 1,250 MCG PO WED, (Reported) Entered as Reported by: CHAZ HARDNIG on 12/28/211547 Last Action: Reviewed Fenofibrate (Fenofibrate) 160 Mg Tablet, 160 MG PO HS, (Reported) Entered as Reported by: CHAZ HARDING on 03/03/20 1433 Last Action: Reviewed Ferrous Sulfate (Iron) 325 Mg Tablet, 325 MG PO BID, (Reported) Entered as Reported by: CHAZ HARDING on 03/04/20 1256 Last Action: Reviewed Latanoprost (Xalatan) 0.005 % Drops, 1 DROP OU HS, (Reported) Entered as Reported by: CHAZ HARDING on 11/12/21 1145 Last Action: Continued Leflunomide (Leflunomide) 20 Mg Tablet, 20 MG PO DAILY, (Reported) Entered as Reported by: CHAZ HARDING on 12/28/211547 Last Action: Reviewed Levothyroxine Sodium (Levothyroxine Sodium) 125 Mcg Tablet, 125 MCG PO DAILY, (Reported) Entered as Reported by: CHAZ HARDING on 12/28/211547 Last Action: Continued Megestrol Acetate (Megestrol Acetate) 400 Mg/10 Ml (10 Ml) Oral.susp, 200 MG PO QIDACHS, (Reported) Entered as Reported by: CHAZ HARDING on 12/28/211547 Last Action: Reviewed Oxybutynin Chloride (Oxybutynin Chloride) 5 Mg Tablet, 5 MG PO BID, (Reported) Entered as Reported by: CHAZ HARDING on 11/12/21 1145 Last Action: Continued Pantoprazole Sodium (Pantoprazole Sodium) 40 Mg Tablet.dr, 40 MG PO DAILY Prescribed by: LORENZO MIMS on 12/21/21 1038 Last Action: Continued Sacubitril/Valsartan (Entresto 24 mg-26 mg Tablet) 24 Mg-26 Mg Tablet, 1 TAB PO BID Prescribed by: LORENZO MIMS on 12/20/21 1028 Last Action: Continued Sodium Bicarbonate (Sodium Bicarbonate) 650 Mg Tablet, 650 MG PO TID Prescribed by: LORENZO MIMS on 12/20/21 1028 Last Action: Reviewed Discontinued Medications Aspirin (Children's Aspirin) 81 Mg Tab.chew, 81 MG PO DAILY Discontinued Reason: No Longer Taking Prescribed by: LORENZO MIMS on 11/25/21 2134 Last Action: Discontinued Enoxaparin Sodium (Enoxaparin Sodium) 40 Mg/0.4 Ml Syringe, 40 MG SC HS Discontinued Reason: No Longer Taking Prescribed by: LORENZO MIMS on 12/20/21 1028 Last Action: Discontinued Levothyroxine Sodium (Levothyroxine Sodium) 150 Mcg Tablet, 150 MCG PO DAILY, (Reported) Discontinued Reason: No Longer Taking Entered as Reported by: CHAZ HARDING on 11/25/21 1312 Last Action: Discontinued Vancomycin HCl (Vancomycin HCl) 125 Mg Capsule, 125 MG PO QID Discontinued Reason: No Longer Taking Prescribed by: LORENZO MIMS on 12/20/21 1028 Last Action: Discontinued Past [id number] Hx Patient Social History Smoking Status: Never a Smoker Former Smoker, Quit: Jul 28, 1984 Type Used: Cigarettes 2nd Hand Smoke Exposure: No Recent Hopitalizations: No Alcohol Use?: No Have you traveled recently?: No Immunizations Up To Date Date of Pneumonia Vaccine: Feb 06, 2020 Date of Influenza Vaccine: Feb 05, 2020 Seasonal Allergies Seasonal Allergies: No Surgeries History of Surgeries: Yes Surgeries: Bowel Surgery, Cardiac, Gallbladder, Hysterectomy, Nephrectomy, Oophorectomy, Tonsillectomy Respiratory History of Respiratory Disorde: No Cardiovascular History of Cardiac Disorders: Yes Cardiac Disorders: Atrial Fibrillation, High Cholesterol, Hypertension Neurological History of Neurological Disord: Yes Neurological Disorders: Neuropathy Reproductive System Hx Reproductive Disorders: Yes (OVARIAN CANCER) Sexually Transmitted Disease: No HIV/AIDS: 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, Menopausal Genitourinary History of Genitourinary Disor: Yes (hx of nephrectomy) Genitourinary Disorders: UTI-Chronic Gastrointestinal History of Gastrointestinal Di: Yes Gastrointestinal Disorders: Obstructive Bowel, C-Diff Musculoskeletal History of Musculoskeletal Dis: Yes Musculoskeletal Disorders: Arthritis, Chronic Back Pain Endocrine History of Endocrine Disorders: Yes Endocrine Disorders: Diabetes, Insulin dep, Hypothyroidsim HEENT History of HEENT Disorders: No Cancer History of Cancer: Yes Cancer: Ovarian Psychosocial History of Psychiatric Problem: Yes Behavioral Health Disorders: Depression Integumentary History of Skin or Integumenta: No Blood Transfusions History of Blood Disorders: No Adverse Reaction to a Blood Tr: No Family Medical History Significant Family History: Diabetes, Hypertension Family Medial History: Arthritis 19 MOTHER Cardiovascular disease 19 MOTHER Diabetes mellitus 19 FATHER 19 MOTHER Review of Systems-General Constitutional: No diaphoresis; malaise, weakness EENTM: No blurred vision, No double vision, No mouth swelling, No epistaxis Respiratory: No cough; dyspnea on exertion, short of breath Cardiovascular: No chest pain; palpitations Gastrointestinal: abdominal pain, other (hx of enterocutaneous fistula) Genitourinary: No dysuria, No frequency, No hematuria Musculoskeletal: joint pain, joint swelling, muscle pain, muscle stiffness Skin: No change in color, No change in hair/nails Psychiatric/Neurological: Anxiety; Denies Depressed, Denies Seizure Physical Exam-General Problems Physical Exam Vital Signs Vital Signs - First Documented 12/28/21 12/28/21 12/28/21 12:15 12:45 15:07 Pulse 95 Resp 12 B/P (MAP) 124/75 (91) O2 Delivery Room Air O2 Flow Rate 0.00 FiO2 21 Capillary Refill : General Appearance: mild distress, cachetic Eyes: Bilateral Eye PERRL, Bilateral Eye EOMI HEENT: pharynx normal; No scleral icterus (R), No scleral icterus (L); pale c onjunctivae (R), pale conjunctivae (L) Neck: non-tender, supple Respiratory: lungs clear, normal breath sounds, no respiratory distress, no accessory muscle use Cardiovascular: regular rate, rhythm, no murmur Gastrointestinal: non tender, soft, other (small 2-3mm opening on abdomen, able to push on the surrounding area and get a thin liquid with dark tint, does not look purulent) Extremities: no calf tenderness, pedal edema Neurologic/Psychiatric: alert, oriented x 3 Skin: ecchymosis; No jaundice, No mottled; pallor Lymphatic: no adenopathy (neck, axilla or groin) Data Review Labs Laboratory Tests 12/28/21 15:55: 12/28/21 15:56: White Blood Count 5.2, Red Blood Count 2.27L, Hemoglobin 6.7*L, Hematocrit 20*L, Mean Corpuscular Volume 89, Mean Corpuscular Hemoglobin 30, Mean Corpuscular Hemoglobin Concent 33, Red Cell Distribution Width 15.4H, Platelet Count 255, Mean Platelet Volume 11.0, Immature Granulocyte % (Auto) 0, Neutrophils (%) (Auto) 62, Lymphocytes (%) (Auto) 26, Monocytes (%) (Auto) 10, Eosinophils (%) (Auto) 2, Basophils (%) (Auto) 1, Neutrophils # (Auto) 3.2, Lymphocytes # (Auto) 1.4, Monocytes # (Auto) 0.5, Eosinophils # (Auto) 0.1, Basophils # (Auto) 0.0, Immature Granulocyte # (Auto) 0.0, Sodium Level 142, Potassium Level 4.3, Chloride Level 117H, Carbon Dioxide Level 18L, Anion Gap 7, Blood Urea Nitrogen 19H, Creatinine 1.14, Estimat Glomerular Filtration Rate 50, BUN/Creatinine Ratio 17, Glucose Level 71, Lactic Acid Level 0.70, Calcium Level 6.8L, Corrected Calcium 8.5, Total Bilirubin 0.2, Aspartate Amino Transf (AST/SGOT) 16, Alanine Aminotransferase (ALT/SGPT) 13, Alkaline Phosphatase 41, Total Prote in 4.1L, Albumin 1.9L Assessment/Plan Assessment/Plan Assessment/Plan Anemia C. Diff Colitis Enterocutaneous fistula Hx of Afib I am not sure why pt was thought to be septic, I don't think this is the case. I think most of her symptoms are due to her anemia; most likely caused by C. Diff. She will be getting a unit of blood and then will monitor H/H. Pt told to increase protein intake, work with PT and move around as much as possible. Continue oral vancomycin and use IS. Supportive care. YADIRA LONDON DO Dec 28, 2021 21:05
[2021-12-28 23:56] VITALS: BP 96/73
[2021-12-29] MEDS: ACETAMINOPHEN ER 650 MG (TYLENOL ARTHRITIS) PO PRN (00:07)
--- NOTE | 2021-12-29 02:26 | Progress Note ---
Standard Progress Note Progress Notes/Assess & Plan Date Seen by a Provider: Dec 29, 2021 Time Seen by a Provider: 02:25 Progress/Assessment & Plan having mod to severe pain, takes Tramadol 50 mg at home will order MD GAIL Almonte JOSEPH K MD Dec 29, 2021 02:26
[2021-12-29 05:26] LABS: BASOPHILS # (AUTO) 0.1 10^3/uL (0.0-0.1); BASOPHILS % (AUTO) 1 % (0-10); EOSINOPHILS # (AUTO) 0.2 10^3/uL (0.0-0.3); EOSINOPHILS % (AUTO) 3 % (0-10); HEMATOCRIT 27 % (35-52); LYMPHOCYTES # (AUTO) 1.5 10^3/uL (1.0-4.0); LYMPHOCYTES % (AUTO) 22 % (12-44); MEAN CORPUSCULAR HEMOGLOBIN 30 pg (25-34); MEAN CORPUSCULAR HGB CONC 34 g/dL (32-36); MEAN CORPUSCULAR VOLUME 88 fL (80-99); MONOCYTES # (AUTO) 0.6 10^3/uL (0.0-1.0); MONOCYTES % (AUTO) 9 % (0-12); NEUTROPHILS # (AUTO) 4.3 10^3/uL (1.8-7.8); NEUTROPHILS % (AUTO) 64 % (42-75); PLATELET COUNT 268 10^3/uL (130-400); WHITE BLOOD COUNT 6.7 10^3/uL (4.3-11.0)
[2021-12-29 05:42] LABS: POTASSIUM 4.3 MMOL/L (3.6-5.0)
[2021-12-29 05:44] LABS: CALCIUM 6.6 MG/DL (8.5-10.1)
[2021-12-29 05:45] LABS: TOTAL PROTEIN 4.2 GM/DL (6.4-8.2)
[2021-12-29 05:47] LABS: BILIRUBIN,TOTAL 0.3 MG/DL (0.1-1.0)
[2021-12-29] MEDS: POTASSIUM CL 10MEQ/50ML IVPB 50 ML IV SCH (05:47)
[2021-12-29] MEDS: KCL 20 MEQ TAB (K-DUR) PO SCH (05:47)
[2021-12-29 05:48] LABS: PHOSPHORUS 1.6 MG/DL (2.3-4.7)
[2021-12-29 05:49] LABS: CREATININE SERUM 0.99 MG/DL (0.60-1.30)
[2021-12-29 05:52] LABS: MAGNESIUM 1.4 MG/DL (1.6-2.4)
[2021-12-29] MEDS: MAGNESIUM 1 GM/100 ML IVPB 100 ML IV SCH ×5 (05:55→21:50)
[2021-12-29] MEDS: LEVOTHYROXINE 125 MCG (LEVOTHROID) TABLET PO SCH (06:04)
[2021-12-29] MEDS: VANCOMYCIN 125 MG CAPSULE PO SCH ×3 (06:04→17:56)
[2021-12-29] MEDS: PANTOPRAZOLE 40 MG (PROTONIX) TAB PO SCH (08:08)
[2021-12-29] MEDS: SACUBITRIL/VALSARTAN 24/26 MG (ENTRESTO) TABLET PO SCH ×2 (08:09→21:48)
[2021-12-29] MEDS: OXYBUTYNIN (DITROPAN) 5 MG TAB PO SCH ×2 (08:09→21:48)
--- NOTE | 2021-12-29 09:44 | Progress Note - Surgery ---
BIANCA BARTLETT 12/29/21 0944: Subjective Date Seen by a Provider: Dec 29, 2021 Time Seen by a Provider: 08:15 Subjective/Events-last exam Patient was resting in bed this morning and states she feels well. She received one unit of blood last night after showing up to the ER with a Hgb of 6.7. She c urrently denies any N/V, sweats/chills, or SOA. She is having many loose stools, currently being treated for C. diff. She is not in any pain. She denies seeing any blood in her stool. Review of Systems General: No Chills, No Night Sweats Pulmonary: No Dyspnea Gastrointestinal: No: Nausea, Vomiting, Abdominal Pain Focused Exam Lactate Level 12/28/21 15:56: Lactic Acid Level 0.70 Objective Exam Vital Signs Date Time Temp Pulse Resp B/P (MAP) Pulse Ox O2 Delivery O2 Flow Rate FiO2 12/29/21 08:00 98 Room Air 12/29/21 08:00 85 12 137/80 (99) 98 Room Air 12/29/21 07:15 81 12/29/21 07:00 88 18 128/67 (87) 96 Room Air 12/29/21 06:00 89 13 108/60 (76) 96 Room Air 12/29/21 05:00 89 14 111/61 (78) 96 Room Air 12/29/21 04:19 99 Room Air 12/29/21 04:18 36.8 Room Air 12/29/21 04:00 90 14 131/74 (93) 97 Room Air 12/29/21 03:00 95 16 136/79 (98) 99 Room Air 12/29/21 02:00 97 14 133/73 (93) 98 Room Air 12/29/21 01:00 94 16 133/78 (96) 97 Room Air 12/29/21 01:00 94 12/29/21 00:00 97 16 136/70 (92) 99 Room Air 12/28/21 23:58 36.2 12/28/21 23:56 36.2 101 15 96/73 99 Room Air 12/28/21 23:42 99 Room Air 12/28/21 23:00 101 16 139/75 (96) 98 Room Air 12/28/21 22:00 101 20 140/72 (94) 99 Room Air 12/28/21 21:00 103 15 136/76 (96) 99 Room Air 12/28/21 20:43 36.2 104 15 131/70 99 Room Air 12/28/21 20:42 36.2 12/28/21 20:15 36.1 98 11 131/65 99 Room Air 12/28/21 20:10 36.1 Room Air 12/28/21 20:00 99 Room Air 12/28/21 20:00 101 13 131/65 (87) 99 Room Air 12/28/21 19:20 Room Air 12/28/21 19:15 95 Room Air 12/28/21 19:00 92 12/28/21 19:00 92 13 137/81 (99) 98 Room Air 12/28/21 18:00 98 9 130/42 (71) 100 Room Air 12/28/21 17:00 98 14 125/68 (87) 100 Room Air 12/28/21 16:00 92 Room Air 12/28/21 16:00 93 23 133/60 (84) 97 Room Air 12/28/21 15:15 93 23 118/75 (89) 98 Room Air 12/28/21 15:07 97 Room Air 0.00 12/28/21 15:07 36.1 93 97 21 12/28/21 14:30 98 23 97/75 (82) Room Air 12/28/21 14:00 98 23 Room Air 12/28/21 13:45 101 18 98 Room Air 12/28/21 13:30 90 12 126/81 (96) 99 Room Air 12/28/21 13:15 95 14 126/73 (90) 93 Room Air 12/28/21 13:00 92 11 134/80 (98) 98 Room Air 12/28/21 12:47 93 12/28/21 12:45 93 12 124/75 (91) 99 Room Air 12/28/21 12:30 92 Room Air 12/28/21 12:30 36.1 Room Air 12/28/21 12:30 93 Room Air 12/28/21 12:15 95 124/75 (91) Room Air I & O 12/29/21 06:59 Intake Total 1230 ml Balance 1230 ml Capillary Refill : General Appearance: No Apparent Distress HEENT: PERRL/EOMI, Moist Mucous Membranes Neck: Supple Respiratory: Lungs Clear, Normal Breath Sounds, No Accessory Muscle Use, No Respiratory Distress Cardiovascular: Regular Rate, Rhythm, No Murmur Gastrointestinal: normal bowel sounds, soft, tenderness (around fistula location) Extremity: No Pedal Edema Neurologic/Psychiatric: Alert, Oriented x3, 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 Skin: Pallor Results Lab Laboratory Tests 12/28/21 15:55: 12/28/21 15:56: White Blood Count 5.2, Red Blood Count 2.27L, Hemoglobin 6.7*L, Hematocrit 20*L, Mean Corpuscular Volume 89, Mean Corpuscular Hemoglobin 30, Mean Corpuscular Hemoglobin Concent 33, Red Cell Distribution Width 15.4H, Platelet Count 255, Mean Platelet Volume 11.0, Immature Granulocyte % (Auto) 0, Neutrophils (%) (Auto) 62, Lymphocytes (%) (Auto) 26, Monocytes (%) (Auto) 10, Eosinophils (%) (Auto) 2, Basophils (%) (Auto) 1, Neutrophils # (Auto) 3.2, Lymphocytes # (Auto) 1.4, Monocytes # (Auto) 0.5, Eosinophils # (Auto) 0.1, Basophils # (Auto) 0.0, Immature Granulocyte # (Auto) 0.0, Sodium Level 142, Potassium Level 4.3, Chloride Level 117H, Carbon Dioxide Level 18L, Anion Gap 7, Blood Urea Nitrogen 19H, Creatinine 1.14, Estimat Glomerular Filtration Rate 50, BUN/Creatinine Ratio 17, Glucose Level 71, Lactic Acid Level 0.70, Calcium Level 6.8L, Corrected Calcium 8.5, Total Bilirubin 0.2, Aspartate Amino Transf (AST/SGOT) 16, Alanine Aminotransferase (ALT/SGPT) 13, Alkaline Phosphatase 41, Total Protein 4.1L, Albumin 1.9L 12/29/21 04:40: White Blood Count 6.7, Red Blood Count 3.05L, Hemoglobin 9.0#L, Hematocrit 27L, Mean Corpuscular Volume 88, Mean Corpuscular Hemoglobin 30, Mean Corpuscular Hemoglobin Concent 34, Red Cell Distribution Width 14.8H, Platelet Count 268, Mean Platelet Volume 11.0, Immature Granulocyte % (Auto) 0, Neutrophils (%) (Auto) 64, Lymphocytes (%) (Auto) 22, Monocytes (%) (Auto) 9, Eosinophils (%) (Auto) 3, Basophils (%) (Auto) 1, Neutrophils # (Auto) 4.3, Lymphocytes # (Auto) 1.5, Monocytes # (Auto) 0.6, Eosinophils # (Auto) 0.2, Basophils # (Auto) 0.1, Immature Granulocyte # (Auto) 0.0, Sodium Level 144, Potassium Level 4.3, Chloride Level 120H, Carbon Dioxide Level 15L, Anion Gap 9, Blood Urea Nitrogen 16, Creatinine 0.99, Estimat Glomerular Filtration Rate 59, BUN/Creatinine Ratio 16, Glucose Level 67L, Calcium Level 6.6L, Corrected Calcium 8.2L, Total Bilirubin 0.3, Aspartate Amino Transf (AST/SGOT) 25, Alanine Aminotransferase (ALT/SGPT) 15, Alkaline Phosphatase 51, Total Protein 4.2L, Albumin 2.0L, Phosphorus Level 1.6L, Magnesium Level 1.4L 12/29/21 08:05: Glucometer 75 Microbiology 12/28/21 MRSA Screen - Final, Complete MRSA not isolated Assessment/Plan Assessment/Plan Assessment/Plan Anemia C. Diff Colitis Enterocutaneous fistula Hx of Afib Pt received 1 unit of blood last night, Hgb improved from 6.7 to 9.0. I think most of her symptoms are due to her anemia; most likely caused by C. Diff. Will continue to trend Hgb and transfuse as needed. Pt told to increase protein intake, work with PT and move around as much as possible. Continue oral vancomycin and use IS. Supportive care. CHRIS NIEVES DO 12/29/21 6477: Subjective Time Seen by a Provider: 14:25 Subjective/Events-last exam Pt seen and examined, states she is doing much better than yesterday and feels stronger. Review of Systems General: No Chills, No Night Sweats Pulmonary: No Dyspnea Gastrointestinal: No: Nausea, Vomiting, Abdominal Pain Objective Exam General Appearance: No Apparent Distress, Chronically ill, Thin HEENT: PERRL/EOMI, Moist Mucous Membranes Respiratory: Lungs Clear, Normal Breath Sounds, No Accessory Muscle Use, No Respiratory Distress Cardiovascular: Regular Rate, Rhythm, No Murmur Gastrointestinal: soft, tenderness (around fistula location) Neurologic/Psychiatric: Alert, Oriented x3, 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 Assessment/Plan Assessment/Plan Assessment/Plan Anemia C. Diff Colitis Enterocutaneous fistula Hx of Afib Pt received 1 unit of blood last night, Hgb improved from 6.7 to 9.0. I think most of her symptoms are due to her anemia; most likely caused by C. Diff. Will continue to trend Hgb and transfuse as needed. Pt told to increase protein intake, work with PT and move around as much as possible. Continue oral vancomycin and use IS. Supportive care. Supervisory-Addendum Brief Verification & Attestation Participated in pt care: history, MDM, physical Personally performed: exam, history, MDM, supervision of care Care discussed with: Medical Student Procedures: n/a Verification and Attestation of Medical Student E/M Service A medical student performed and documented this service. I then reviewed and verified all information documented by the medical student and made modific ations to such information, when appropriate. I personally performed a physical exam, medical decision making and then discussed any differences between the notes and made revisions as necessary to create one note. Chris Nieves , 12/29/21 , 16:57 BIANCA BARTLETT Dec 29, 2021 09:44 CHRIS NIEVES DO Dec 29, 2021 16:57
--- NOTE | 2021-12-29 11:58 | Tele-ICU Progress Note ---
Subjective Date Seen by a Provider: Dec 29, 2021 Time Seen by a Provider: 11:58 Subjective/Events-last exam (Tele-ICU Physician , Progress Note ) Available chart/ vitals / labs / Images reviewed Video assessment done using teleICU camera, rest of exam as per RN Discussed with RN Events overnight : Afebrile hemodynamically stable Respiratory - I/O = Drips: Pressors- no Consultants: Hospital course: 76 y/o female from snf with abnormal labs A/P Anemia - Hb 6.7 , no active bleeding , not on AC , PLT WNL - transfusion 1 u prbc , follow labs = w/up as per PCP recent C. difficile colitis - no diarrhea , on Vanco po CHF -Echo EF 20-25% -Lasix and spironolactone and Entresto and LifeVest Myopathy Malnutrition Recent COVID infection with prior vaccination and 1 booster h/o Afib - in sinus now Diabetes CKD Recent hospitalization at [facility] 10/20-11/11 following stay at [facility] 10/14 for pelvic abscess drainage. Lines : midline , (Central Line Necessity Reviewed) Knapp: void OG: Nutrition: Analgesia: Anxiety/ delirium VTE Prophylaxis: scd Stress Ulcer Prophylaxis: Plans in collaboration with bedside consultants and IM MDs. Discussed with RN to reach out if any questions or concerns A total of 20 minutes of critical care time was devoted to this patient today, required to treat and/or prevent further deterioration of critical care condition ( as above ) . Sepsis Event Evaluation Height, Weight, BMI Height: '" Weight: lbs. oz. kg; 22.78 BMI Method:Stated Focused Exam Lactate Level 12/28/21 15:56: Lactic Acid Level 0.70 Exam Exam Patient acknowledged, consented, and participated in this virtual visit which was conducted using real time audio/video Vital Signs Date Time Temp Pulse Resp B/P (MAP) Pulse Ox O2 Delivery O2 Flow Rate FiO2 12/29/21 11:00 82 12 122/63 (82) 97 Room Air 12/29/21 10:00 98 17 126/69 (88) 94 Room Air 12/29/21 09:00 87 12 122/98 (106) 98 Room Air 12/29/21 08:00 98 Room Air 12/29/21 08:00 85 12 137/80 (99) 98 Room Air 12/29/21 07:15 81 12/29/21 07:00 88 18 128/67 (87) 96 Room Air 12/29/21 06:00 89 13 108/60 (76) 96 Room Air 12/29/21 05:00 89 14 111/61 (78) 96 Room Air 12/29/21 04:19 99 Room Air 12/29/21 04:18 36.8 Room Air 12/29/21 04:00 90 14 131/74 (93) 97 Room Air 12/29/21 03:00 95 16 136/79 (98) 99 Room Air 12/29/21 02:00 97 14 133/73 (93) 98 Room Air 12/29/21 01:00 94 16 133/78 (96) 97 Room Air 12/29/21 01:00 94 12/29/21 00:00 97 16 136/70 (92) 99 Room Air 12/28/21 23:58 36.2 12/28/21 23:56 36.2 101 15 96/73 99 Room Air 12/28/21 23:42 99 Room Air 12/28/21 23:00 101 16 139/75 (96) 98 Room Air 12/28/21 22:00 101 20 140/72 (94) 99 Room Air 12/28/21 21:00 103 15 136/76 (96) 99 Room Air 12/28/21 20:43 36.2 104 15 131/70 99 Room Air 12/28/21 20:42 36.2 12/28/21 20:15 36.1 98 11 131/65 99 Room Air 12/28/21 20:10 36.1 Room Air 12/28/21 20:00 99 Room Air 12/28/21 20:00 101 13 131/65 (87) 99 Room Air 12/28/21 19:20 Room Air 12/28/21 19:15 95 Room Air 12/28/21 19:00 92 12/28/21 19:00 92 13 137/81 (99) 98 Room Air 12/28/21 18:00 98 9 130/42 (71) 100 Room Air 12/28/21 17:00 98 14 125/68 (87) 100 Room Air 12/28/21 16:00 92 Room Air 12/28/21 16:00 93 23 133/60 (84) 97 Room Air 12/28/21 15:15 93 23 118/75 (89) 98 Room Air 12/28/21 15:07 97 Room Air 0.00 12/28/21 15:07 36.1 93 97 21 12/28/21 14:30 98 23 97/75 (82) Room Air 12/28/21 14:00 98 23 Room Air 12/28/21 13:45 101 18 98 Room Air 12/28/21 13:30 90 12 126/81 (96) 99 Room Air 12/28/21 13:15 95 14 126/73 (90) 93 Room Air 12/28/21 13:00 92 11 134/80 (98) 98 Room Air 12/28/21 12:47 93 12/28/21 12:45 93 12 124/75 (91) 99 Room Air 12/28/21 12:30 92 Room Air 12/28/21 12:30 36.1 Room Air 12/28/21 12:30 93 Room Air 12/28/21 12:15 95 124/75 (91) Room Air I & O 12/29/21 07:00 Intake Total 1230 ml Balance 1230 ml Height & Weight Height: '" Weight: lbs. oz. kg; 22.78 BMI Method:Stated General Appearance: No Apparent Distress HEENT: PERRL/EOMI, Moist Mucous Membranes Neck: Supple Respiratory: Lungs Clear, Normal Breath Sounds, No Accessory Muscle Use, No Respiratory Distress Cardiovascular: Regular Rate, Rhythm, No Murmur Gastrointestinal: normal bowel sounds, soft, tenderness (around fistula location) Extremity: No Pedal Edema Neurologic/Psychiatric: Alert, Oriented x3, 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 Skin: Pallor Results Lab Laboratory Tests 12/28/21 15:56 12/29/21 04:40 Assessment/Plan Assessment/Plan 1 ROLLY MCCLELLAND MD Dec 29, 2021 11:58
--- NOTE | 2021-12-29 13:07 | Progress Note ---
BARBARA GALINDO 12/29/21 1307: Subjective Subjective/Events-last exam Patient is a 76 year old female admitted for C. diff infection and rectal bleeding. Says she is feeling much better than yesterday and that her diarrhea is improving. She notes no blood in her stool since yesterday but states that prior to admission she would pass stools that were completely black. Patient admits fatigue, abdominal pain, and positional lightheadedness. She denies SOB, nausea, vomiting, headache, dysuria, cough, or chills. Review of Systems General: No Chills; Fatigue HEENT: No Head Aches Pulmonary: No Cough, No Other (Denies SOB) Cardiovascular: Lt Headedness (Lightheadedness when sitting up on occasion); No: Chest Pain, Palpitations Gastrointestinal: Abdominal Pain, Diarrhea (Improving); No: Nausea, Vomiting, Hematochezia (No gross blood in stool since yesterday) Genitourinary: No Dysuria Musculoskeletal: No: other (Denies muscle soreness) Neurological: No: Change in speech, Confusion Focused Exam Sepsis Stage: Ruled Out Reason for ruling out sepsis: Patient no longer meets SIRS criteria for sepsis diagnosis Possible Source: GI Tract/Intra-Abdominal (C. Diff) Lactate Level 12/28/21 15:56: Lactic Acid Level 0.70 Time of Focused Exam: 08:15 Respiratory: Chest Non Tender, Lungs Clear, Normal Breath Sounds, No Accessory Muscle Use, No Respiratory Distress Cardiovascular: Regular Rate, Rhythm, No Edema, No Gallop, No JVD, No Murmur Skin: normal color, warm/dry, other (Bilateral pitting edema in shins) Objective Exam Last Set of Vital Signs Vital Signs Date Time Temp Pulse Resp B/P (MAP) Pulse Ox O2 Delivery O2 Flow Rate FiO2 12/29/21 12:00 98 Room Air 12/29/21 11:00 82 12 122/63 (82) 12/29/21 04:18 36.8 12/28/21 15:07 0.00 12/28/21 15:07 21 Capillary Refill : I&O Intake and Output 12/29/21 00:00 Intake Total 880 ml Balance 880 ml Intake Oral 520 ml IV Total 30 ml Other 330 ml # Voids 4 # Bowel Movements 3 Daily Weight Change Yes, 2-13 lbs General: Alert, Oriented X3, Cooperative, No Acute Distress Neck: Supple, No JVD Lungs: Clear to Auscultation, Normal Air Movement Heart: Regular Rate, Normal S1, Normal S2, No Murmurs Abdomen: Soft, Other (Slight tenderness to palpation throughout the abdomen with more tenderness noted in the RLQ) Extremities: Other (Bilateral pitting edema noted in shins) Skin: No Rashes, No Breakdown, No Significant Lesion Neuro: Normal Speech, Normal Tone Psych/Mental Status: Mental Status NL, Mood NL Results/Procedures Lab Laboratory Tests 12/28/21 15:55: 12/28/21 15:56: White Blood Count 5.2, Red Blood Count 2.27L, Hemoglobin 6.7*L, Hematocrit 20*L, Mean Corpuscular Volume 89, Mean Corpuscular Hemoglobin 30, Mean Corpuscular Hemoglobin Concent 33, Red Cell Distribution Width 15.4H, Platelet Count 255, Mean Platelet Volume 11.0, Immature Granulocyte % (Auto) 0, Neutrophils (%) (Auto) 62, Lymphocytes (%) (Auto) 26, Monocytes (%) (Auto) 10, Eosinophils (%) (Auto) 2, Basophils (%) (Auto) 1, Neutrophils # (Auto) 3.2, Lymphocytes # (Auto) 1.4, Monocytes # (Auto) 0.5, Eosinophils # (Auto) 0.1, Basophils # (Auto) 0.0, Immature Granulocyte # (Auto) 0.0, Sodium Level 142, Potassium Level 4.3, Chloride Level 117H, Carbon Dioxide Level 18L, Anion Gap 7, Blood Urea Nitrogen 19H, Creatinine 1.14, Estimat Glomerular Filtration Rate 50, BUN/Creatinine Ratio 17, Glucose Level 71, Lactic Acid Level 0.70, Calcium Level 6.8L, Corrected Calcium 8.5, Total Bilirubin 0.2, Aspartate Amino Transf (AST/SGOT) 16, Alanine Aminotransferase (ALT/SGPT) 13, Alkaline Phosphatase 41, Total Protein 4.1L, Albumin 1.9L 12/29/21 04:40: White Blood Count 6.7, Red Blood Count 3.05L, Hemoglobin 9.0#L, Hematocrit 27L, Mean Corpuscular Volume 88, Mean Corpuscular Hemoglobin 30, Mean Corpuscular Hemoglobin Concent 34, Red Cell Distribution Width 14.8H, Platelet Count 268, Mean Platelet Volume 11.0, Immature Granulocyte % (Auto) 0, Neutrophils (%) (Auto) 64, Lymphocytes (%) (Auto) 22, Monocytes (%) (Auto) 9, Eosinophils (%) (Auto) 3, Basophils (%) (Auto) 1, Neutrophils # (Auto) 4.3, Lymphocytes # (Auto) 1.5, Monocytes # (Auto) 0.6, Eosinophils # (Auto) 0.2, Basophils # (Auto) 0.1, Immature Granulocyte # (Auto) 0.0, Sodium Level 144, Potassium Level 4.3, Chloride Level 120H, Carbon Dioxide Level 15L, Anion Gap 9, Blood Urea Nitrogen 16, Creatinine 0.99, Estimat Glomerular Filtration Rate 59, BUN/Creatinine Ratio 16, Glucose Level 67L, Calcium Level 6.6L, Corrected Calcium 8.2L, Total Bilirubin 0.3, Aspartate Amino Transf (AST/SGOT) 25, Alanine Aminotransferase (ALT/SGPT) 15, Alkaline Phosphatase 51, Total Protein 4.2L, Albumin 2.0L, Phosphorus Level 1.6L, Magnesium Level 1.4L 12/29/21 08:05: Glucometer 75 Microbiology 12/28/21 MRSA Screen - Final, Complete MRSA not isolated Radiology PROCEDURE: CT abdomen and pelvis without contrast. TECHNIQUE: Multiple contiguous axial images were obtained through the abdomen and pelvis without the use of intravenous contrast. Auto Exposure Controls were utilized during the CT exam to meet ALARA standards for radiation dose reduction. INDICATION: Periumbilical abdominal pain COMPARISON: 11/17/2021 Unenhanced images of the liver and spleen reveal no focal abnormality. No pancreatic, adrenal gland or left renal abnormality is identified. Right kidney is absent. Gallbladder has been removed. There is fluid distention of colon with diffuse mural thickening. There is extensively thickened sigmoid colon and rectal arias. Surgical findings are seen in the anterior abdominal wall with small amount of gas and fluid along the midline incision site. Unenhanced urinary bladder is distended but otherwise unremarkable. IMPRESSION: Extensive mural thickening of the distal colon and rectum suggestive of proctocolitis. There is a small amount of fluid within the anterior abdominal wall incision site, however, no other focal fluid collection is seen to indicate abscess. Dictated by: Dictated on workstation # [id number] Dict: 12/13/21 1758 Trans: 12/13/21 1816 [facility] [id number] Interpreted by: SUSANNE VILLEGAS MD Electronically signed by: SUSANNE VILLEGAS MD 12/13/21 1816 Meds As noted in Medications List Assessment/Plan Assessment/Plan Admission Dx C. Diff infection accompanied by rectal bleeding Admission Status: Inpatient Order (span 2 midnights) Reason for Inpatient Admission: Inpatient admission required for close monitoring of vital signs, infectious course, and administration of IV fluids, medications, and transfusion of blood products. Assessment & Plan C. Diff - Continue Vancomycin Anemia - Patient received transfusion with substantial improvement in CBC results: RBC (3.05 up from 2.27), HGB (9.0 up from 6.7), HCT (27 up from 20), RDW stable at 14.8. Continue monitoring with CBC results and iron studies to address secondary factors contributing to anemia A. fib - continue medical management Diabetes Mellitus - continue medical management Hypertension - Sacubitril/valsartan Hypothyroidism - levothyroxine Hyperlipidemia - Atorvastatin Clinical Quality Measures Admission Status Admission Dx C. Diff infection accompanied by rectal bleeding Admission Status: Inpatient Order (span 2 midnights) Reason for Inpatient Admission: Admission is necessary to administer IV fluids and blood products. Close monitoring of infectious course and vital signs are necessary to ensure patient safety LISA NELSON MD 12/29/21 194: Subjective Review of Systems General: Fatigue, Malaise Pulmonary: No Dyspnea, No Cough Cardiovascular: No: Chest Pain, Palpitations Gastrointestinal: Abdominal Pain, Diarrhea (Improving); No: Nausea, Vomiting Genitourinary: No Dysuria Neurological: Weakness, Incoordination Objective Exam General: Alert, Oriented X3, Cooperative, No Acute Distress Lungs: Clear to Auscultation, Normal Air Movement Heart: Regular Rate, No Murmurs Abdomen: Soft, No Tenderness, Other (ttp around fistula) Extremities: Other (2+ pitting edema) Neuro: Normal Speech, Cranial Nerves 3-12 NL Supervisory-Addendum Brief Verification & Attestation Participated in pt care: history, physical Personally performed: exam, history Care discussed with: Medical Student Procedures: n/a Verification and Attestation of Medical Student E/M Service A medical student performed and documented this service in my presence. I reviewed and verified all information documented by the medical student and made modifications to such information, when appropriate. I personally performed the physical exam and medical decision making. 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 - Upon arrival to hospital patient did not meet sepsis criteria Lower GI bleed Anemia of Acute Blood Loss - Type and Cross, will transfuse 1 unit pRBCs and then repeat CBC in AM - Iron panel pending - Consult Dr Nieves, appreciate recommendations - 12/29: Hgb 9.0, will continue to monitor, no further bleeding present Acute on Chronic Renal Failure - Improved upon arrival with 1 L NS prior to discharge from [facility] Chronic Systolic CHF Atrial Fibrillation Rate controlled - Does not seem to be in acute exacerbation - Can not tolerated OAC due to GI bleeding - 12/29: Lasix given today for increase LE swelling Severe PEM - Appreciate dietary recommendations Peritoneal Fistula - General Surgery consulted BARBARA GALINDO Dec 29, 2021 13:07 LISA NELSON MD Dec 29, 2021 19:43
[2021-12-29] MEDS: LATANOPROST 0.005% (XALATAN) OPHTH SOLN 2.5 ML OU SCH (21:48)
[2021-12-29] MEDS: AMITRIPTYLINE 25 MG (ELAVIL) TAB PO SCH (21:48)
[2021-12-30] MEDS: VANCOMYCIN 125 MG CAPSULE PO SCH ×4 (02:07→17:47)
[2021-12-30 06:29] LABS: BASOPHILS # (AUTO) 0.1 10^3/uL (0.0-0.1); BASOPHILS % (AUTO) 2 % (0-10); EOSINOPHILS # (AUTO) 0.2 10^3/uL (0.0-0.3); EOSINOPHILS % (AUTO) 4 % (0-10); HEMATOCRIT 29 % (35-52); HEMOGLOBIN 9.6 g/dL (11.5-16.0); LYMPHOCYTES # (AUTO) 1.3 10^3/uL (1.0-4.0); LYMPHOCYTES % (AUTO) 22 % (12-44); MEAN CORPUSCULAR HEMOGLOBIN 29 pg (25-34); MEAN CORPUSCULAR HGB CONC 33 g/dL (32-36); MEAN CORPUSCULAR VOLUME 88 fL (80-99); MEAN PLATELET VOLUME 10.4 fL (9.0-12.2); MONOCYTES # (AUTO) 0.4 10^3/uL (0.0-1.0); MONOCYTES % (AUTO) 7 % (0-12); NEUTROPHILS % (AUTO) 66 % (42-75); PLATELET COUNT 243 10^3/uL (130-400); WHITE BLOOD COUNT 6.1 10^3/uL (4.3-11.0)
[2021-12-30 06:45] LABS: POTASSIUM 4.7 MMOL/L (3.6-5.0)
[2021-12-30 06:47] LABS: CALCIUM 6.6 MG/DL (8.5-10.1)
[2021-12-30 06:48] LABS: TOTAL PROTEIN 4.4 GM/DL (6.4-8.2)
[2021-12-30 06:49] LABS: BILIRUBIN,TOTAL 0.3 MG/DL (0.1-1.0)
[2021-12-30 06:51] LABS: PHOSPHORUS 2.1 MG/DL (2.3-4.7)
[2021-12-30 06:52] LABS: CREATININE SERUM 0.93 MG/DL (0.60-1.30)
[2021-12-30 06:54] LABS: MAGNESIUM 2.2 MG/DL (1.6-2.4)
[2021-12-30] MEDS: POTASSIUM CL 10MEQ/50ML IVPB 50 ML IV SCH (07:07)
[2021-12-30] MEDS: MAGNESIUM 1 GM/100 ML IVPB 100 ML IV SCH (07:07)
[2021-12-30] MEDS: KCL 20 MEQ TAB (K-DUR) PO SCH (07:08)
--- NOTE | 2021-12-30 07:52 | Progress Note - Surgery ---
CELIO HOOK 12/30/21 0752: Subjective Date Seen by a Provider: Dec 30, 2021 Time Seen by a Provider: 07:00 Subjective/Events-last exam Patient is feeling better. She did complain of diffuse abdominal tenderness and said it felt more like a fullness. She claimed she has been urinating and having bowel movements and denied any blood present in stool the last bowel movement she had. She is ambulating to go to the bathroom only, she did not have an IS in her room this morning. She had a transient episode of nausea last night when sitting in her chair but it went away quickly. She reports the fistula is not draining as much. Review of Systems General: No Chills, No Night Sweats Pulmonary: No Dyspnea, No Cough Cardiovascular: No: Chest Pain Gastrointestinal: Nausea, Abdominal Pain; No: Vomiting Musculoskeletal: No: neck pain Focused Exam Lactate Level 12/28/21 15:56: Lactic Acid Level 0.70 Time of Focused Exam: 08:15 Objective Exam Vital Signs Date Time Temp Pulse Resp B/P (MAP) Pulse Ox O2 Delivery O2 Flow Rate FiO2 12/30/21 07:12 87 12/30/21 04:12 36.0 80 20 141/81 (101) 99 Room Air 12/30/21 01:00 88 12/29/21 23:55 36.5 92 20 116/58 (77) 93 Room Air 12/29/21 20:00 Room Air 12/29/21 19:59 36.5 83 20 131/69 (89) 100 Room Air 12/29/21 19:05 116 12/29/21 18:52 100 Room Air 12/29/21 16:04 36.7 81 18 134/69 (90) 100 Room Air 12/29/21 14:42 36.4 84 16 125/59 (81) 99 Room Air 12/29/21 14:30 Room Air 12/29/21 14:27 85 12/29/21 14:00 87 16 133/75 (94) 98 Room Air 12/29/21 13:06 84 12/29/21 13:00 83 11 135/74 (94) 98 Room Air 12/29/21 12:00 98 Room Air 12/29/21 12:00 82 14 123/65 (84) 99 Room Air 12/29/21 11:00 82 12 122/63 (82) 97 Room Air 12/29/21 10:00 98 17 126/69 (88) 94 Room Air 12/29/21 09:00 87 12 122/98 (106) 98 Room Air 12/29/21 08:00 98 Room Air 12/29/21 08:00 85 12 137/80 (99) 98 Room Air I & O 12/30/21 07:00 Intake Total 1680 ml Balance 1680 ml Capillary Refill : General Appearance: No Apparent Distress, Chronically ill, Thin Neck: Non Tender; No Lymphadenopathy (L), No Lymphadenopathy (R) Respiratory: Lungs Clear, Normal Breath Sounds, No Accessory Muscle Use, No Respiratory Distress Cardiovascular: Regular Rate, Rhythm, No Murmur, Normal Peripheral Pulses Gastrointestinal: soft, tenderness (diffuse tenderness to light palpation) Extremity: No Pedal Edema, Other (dorsalis pedis 2+ b/l. Sensation intact b/l in LE) Neurologic/Psychiatric: Alert, Oriented x3, 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 Results Lab Laboratory Tests 12/29/21 08:05: Glucometer 75 12/30/21 06:17: White Blood Count 6.1, Red Blood Count 3.29L, Hemoglobin 9.6L, Hematocrit 29L, Mean Corpuscular Volume 88, Mean Corpuscular Hemoglobin 29, Mean Corpuscular Hemoglobin Concent 33, Red Cell Distribution Width 15.2H, Platelet Count 243, Mean Platelet Volume 10.4, Immature Granulocyte % (Auto) 0, Neutrophils (%) (Auto) 66, Lymphocytes (%) (Auto) 22, Monocytes (%) (Auto) 7, Eosinophils (%) (Auto) 4, Basophils (%) (Auto) 2, Neutrophils # (Auto) 4.0, Lymphocytes # (Auto) 1.3, Monocytes # (Auto) 0.4, Eosinophils # (Auto) 0.2, Basophils # (Auto) 0.1, Immature Granulocyte # (Auto) 0.0, Sodium Level 141, Potassium Level 4.7, Chloride Level 119H, Carbon Dioxide Level 17L, Anion Gap 5, Blood Urea Nitrogen 15, Creatinine 0.93, Estimat Glomerular Filtration Rate 64, BUN/Creatinine Ratio 16, Glucose Level 86, Calcium Level 6.6L, Corrected Calcium 8.2L, Phosphorus Level 2.1L, Magnesium Level 2.2, Total Bilirubin 0.3, Aspartate Amino Transf (AST/SGOT) 18, Alanine Aminotransferase (ALT/SGPT) 14, Alkaline Phosphatase 45, Total Protein 4.4L, Albumin 2.0L Microbiology 12/28/21 Blood Culture - Preliminary, Resulted No growth 12/28/21 MRSA Screen - Final, Complete MRSA not isolated Assessment/Plan Assessment/Plan Assessment/Plan Anemia C. Diff Colitis (Positive test on 12/13/2021) Enterocutaneous fistula Hx of Afib Hgb stabilized at 9.6 from 9.0 yesterday. Check Hgb with AM labs daily, transfuse if level drops below 7. Maintain patient on oral vancomycin. Patient did not have an IS next to her bed today so ensure she receives and uses it. Ambulate as much as she can tolerate. CHRIS NIEVES DO 12/30/21 1301: Subjective Time Seen by a Provider: 09:47 Subjective/Events-last exam Pt seen and examined, states she feels good today and stronger. Fistula with minimal output, "less than yesterday". Review of Systems General: No Chills, No Night Sweats Pulmonary: No Dyspnea, No Cough Cardiovascular: No: Chest Pain Gastrointestinal: Nausea, Abdominal Pain (minimal); No: Vomiting Objective Exam General Appearance: No Apparent Distress, Chronically ill, Thin Respiratory: Lungs Clear, Normal Breath Sounds, No Accessory Muscle Use, No Respiratory Distress Cardiovascular: Regular Rate, Rhythm, No Murmur Gastrointestinal: soft, tenderness (minimal tenderness to light palpation) Neurologic/Psychiatric: Alert, Oriented x3 Assessment/Plan Assessment/Plan Assessment/Plan Anemia C. Diff Colitis (Positive test on 12/13/2021) Enterocutaneous fistula Hx of Afib Hgb stabilized at 9.6 from 9.0 yesterday. Check Hgb with AM labs daily, transfuse if level drops below 7. Maintain patient on oral vancomycin. Patient did not have an IS next to her bed today so ensure she receives and uses it. Ambulate as much as she can tolerate. Supervisory-Addendum Brief Verification & Attestation Participated in pt care: history, MDM, physical Personally performed: exam, history, MDM, supervision of care Care discussed with: Medical Student Procedures: n/a Verification and Attestation of Medical Student E/M Service A medical student performed and documented this service. I then reviewed and verified all information documented by the medical student and made modifications to such information, when appropriate. I personally performed a physical exam, medical decision making and then discussed any differences between the notes and made revisions as necessary to create one note. Chris Nieves , 12/30/21 , 13:01 CELIO HOOK Dec 30, 2021 07:52 CHRIS NIEVES DO Dec 30, 2021 13:01
[2021-12-30] MEDS: OXYBUTYNIN (DITROPAN) 5 MG TAB PO SCH ×2 (09:27→20:49)
[2021-12-30] MEDS: PANTOPRAZOLE 40 MG (PROTONIX) TAB PO SCH (09:27)
[2021-12-30] MEDS: SACUBITRIL/VALSARTAN 24/26 MG (ENTRESTO) TABLET PO SCH ×2 (09:27→20:49)
[2021-12-30] MEDS: LEVOTHYROXINE 125 MCG (LEVOTHROID) TABLET PO SCH (09:35)
--- NOTE | 2021-12-30 11:16 | Discharge Summary ---
Discharge Summary Hospital Course Problems Reviewed?: Yes Hospital Course Date of Admission: Dec 28, 2021 at 12:13 Admission Diagnosis : C. difficile infection and severe anemia Family Physician/Provider: Hermann Zhang MD Date of Discharge: 12/30/21 Discharge Diagnosis: C. Difficile Infection Severe Anemia - resolved Hospital Course: Patient was readmitted to [facility] after her C. Difficile infection worsened at the [facility]. Upon admission, she was found to be severely anemic wi th a HGB of 6.7 and HCT of 20. She received one unit of A positive leukocyte reduced RBCs correcting her HGB to 9.0 and HCT to 27. Her labs continued to improve throughout her stay and she remains on vancomycin for her C. diff infection. Patient to be discharged back to [facility]. Labs and Pending Lab Test: Laboratory Tests 12/30/21 06:17: White Blood Count 6.1, Red Blood Count 3.29L, Hemoglobin 9.6L, Hematocrit 29L, Mean Corpuscular Volume 88, Mean Corpuscular Hemoglobin 29, Mean Corpuscular Hemoglobin Concent 33, Red Cell Distribution Width 15.2H, Platelet Count 243, Mean Platelet Volume 10.4, Immature Granulocyte % (Auto) 0, Neutrophils (%) (Auto) 66, Lymphocytes (%) (Auto) 22, Monocytes (%) (Auto) 7, Eosinophils (%) (Auto) 4, Basophils (%) (Auto) 2, Neutrophils # (Auto) 4.0, Lymphocytes # (Auto) 1.3, Monocytes # (Auto) 0.4, Eosinophils # (Auto) 0.2, Basophils # (Auto) 0.1, Immature Granulocyte # (Auto) 0.0, Sodium Level 141, Potassium Level 4.7, Chloride Level 119H, Carbon Dioxide Level 17L, Anion Gap 5, Blood Urea Nitrogen 15, Creatinine 0.93, Estimat Glomerular Filtration Rate 64, BUN/Creatinine Ratio 16, Glucose Level 86, Calcium Level 6.6L, Corrected Calcium 8.2L, Phosphorus Level 2.1L, Magnesium Level 2.2, Total Bilirubin 0.3, Aspartate Amino Transf (AST/SGOT) 18, Alanine Aminotransferase (ALT/SGPT) 14, Alkaline Phosphatase 45, Total Protein 4.4L, Albumin 2.0L Microbiology 12/28/21 Blood Culture - Preliminary, Resulted No growth 12/28/21 MRSA Screen - Final, Complete MRSA not isolated Home Meds Active Pantoprazole Sodium 40 Mg Tablet.dr 40 Mg PO DAILY 30 Days Sodium Bicarbonate 650 Mg Tablet 650 Mg PO TID 14 Days Entresto 24 mg-26 mg Tablet (Sacubitril/Valsartan) 24 Mg-26 Mg Tablet 1 Tab PO BID 30 Days Carvedilol 3.125 Mg Tablet 3.125 Mg PO BID WITH MEALS Lipitor (Atorvastatin Calcium) 40 Mg Tablet 40 Mg PO 1700 Reported Megestrol Acetate 400 Mg/10 Ml (10 Ml) Oral.susp 200 Mg PO QIDACHS Levothyroxine Sodium 125 Mcg Tablet 125 Mcg PO DAILY Leflunomide 20 Mg Tablet 20 Mg PO DAILY Vitamin D2 (Ergocalciferol (Vitamin D2)) 1,250 Mcg (94594 Unit) Capsule 1,250 Mcg PO WED Cholestyramine Packet (Cholestyramine (with Sugar)) 4 Gram Powd.pack 4 Gm PO BID Amlodipine Besylate 5 Mg Tablet 5 Mg PO DAILY Tylenol Arthritis (Acetaminophen) 650 Mg Tablet.er 650 Mg PO Q6H PRN Oxybutynin Chloride 5 Mg Tablet 5 Mg PO BID Xalatan (Latanoprost) 0.005 % Drops 1 Drop OU HS Iron (Ferrous Sulfate) 325 Mg Tablet 325 Mg PO BID Amitriptyline HCl 100 Mg Tablet 100 Mg PO HS Fenofibrate 160 Mg Tablet 160 Mg PO HS Cetirizine HCl 10 Mg Tablet 10 Mg PO DAILY Assessment/Pt DC Instructions C. Diff infection - continue course of vancomycin Anemia - severe anemia has resolved and serial cbcwd continue to show improvement in HGB and HCT. Her iron studies showed no marked abnormality. Vitals should continue to be monitored for signs of recurrence. Patient should continue iron supplementation A. fib - continue medical management Diabetes mellitus - continue medical management Hypertension - continue medical management Hypothyroidism - levothyroxine Hyperlipidemia - atorvastatin Patient to be discharged back to [facility]. Activity as Tolerated: Yes Discharge Physical Examination Allergies: Coded Allergies: Penicillins (Verified Allergy, Unknown, 08/20/20) raspberry (Verified Allergy, Unknown, 08/20/20) General Appearance: No Apparent Distress, WD/WN Respiratory: Chest Non Tender, Lungs Clear, Normal Breath Sounds, No Accessory Muscle Use, No Respiratory Distress Cardiovascular: Regular Rate, Rhythm, No Edema, No Gallop, No JVD, No Murmur Gastrointestinal: Normal Bowel Sounds, No Organomegaly, No Pulsatile Mass, Soft, Tenderness (Tenderness to palpation in RLQ) Extremity: Normal Inspection, Normal Range of Motion, Non Tender Skin: Normal Color, Warm/Dry Neurologic/Psychiatric: Alert, Oriented x3, No Motor/Sensory Deficits, 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 Discharge Summary Date of Admission Dec 28, 2021 at 12:13 Date of Discharge 12/30/2021 Discharge Date: Dec 30, 2021 Admission Diagnosis C. Difficile infection with severe anemia (initially met SIRS criteria but symptoms were more likely from anemia rather than sepsis) Discharge Diagnosis C. Difficile Infection Severe Anemia (resolved) BARBARA GALINDO Dec 30, 2021 11:03
[2021-12-30 11:32] VITALS: BP 133/88
[2021-12-30] MEDS ORDERED: MAG CARB/AL HYDROX EXTRA STRENGTH TAB (GAVISCON ES) PO PRN (14:30)
[2021-12-30 15:38] VITALS: BP 158/88
--- NOTE | 2021-12-30 15:59 | Physical Therapy Evaluation ---
PT Evaluation-General Medical Diagnosis Admission Date Dec 28, 2021 at 12:13 Medical Diagnosis: C. difficile infection and continued rectal bleeding Onset Date: Nov 28, 2011 Therapy Diagnosis Therapy Diagnosis: Gait deficit, strength defict Precautions Precautions/Isolations: Contact Isolation, Fall Prevention, Pressure Ulcer Weight Bear Status Right Lower Extremity: Right Full Weight Bearing Left Lower Extremity: Left Full Weight Bearing Referral Physician: Dr. Schafer Reason for Referral: Evaluation/Treatment Medical History Pertinent Medical History: Atrial Fib, Arthritis, DM, HTN, Hypothroidism, OA, Renal Insufficiency Social History Home: Single Level Current Living Status: Other Family (Grandson) PT Steps Into Home: 4 Prior Prior Level of Function SCALE: Activities may be completed with or without assistive devices. 1-Rwmgcwpqsy-ageqkme completes the activity by him/herself with no assistance from a helper. 5-Set-up or Clean-up Assistance-helper sets up or cleans up; patient completes activity. [place] assists only prior to or following the activity. 4-Supervision or Touching Assistance-helper provides verbal cues and/or touching/steadying and/or contact guard assistance as patient completes activity. Assistance may be provided throughout the activity or intermittently. 3-Partial/Moderate Assistance-helper does LESS THAN HALF the effort. [place] lifts, holds or supports trunk or limbs, but provides less than half the effort. 2-Substantial/Maximal Assistance-helper does MORE THAN HALF the effort. [place] lifts or holds trunk or limbs and provides more than half the effort. 1-Vjghckbri-tszdgv does ALL the effort. Patient does none of the effort to complete the activity. Or, the assistance of 2 or more helpers is required for the patient to complete the activity. If activity was not attempted, code reason: 7-Patient Refused. 9-Not Applicable-not attempted and the patient did not perform the activity before the current illness, exacerbation or injury. 10-Not Attempted due to Environmental Limitations-(lack of equipment, weather restraints, etc.). 88-Not Attempted due to Medical Conditions or Safety Concerns. Bed Mobility: 6 Transfers (B,C,W/C): 6 Gait: 6 Stairs: 6 Indoor Mobility (Ambulation): Independent Stairs: Independent Prior Devices Use: Walker PT Evaluation-Current Subjective Patient in the bathroom upon PT arrival, agreeable to treatment. Objective Patient Orientation: Person, Place, Time, Situation ROM/Strength ROM Lower Extremities WFLs bilaterally all planes Strength Lower Extremities 3+/5 bilaterally all planes Sensory Vision: Functional Hearing: Functional Sensation Right Lower Extremit: Intact Sensation Left Lower Extremity: Intact Transfers Roll Left to Right (QC): 5 Sit to Lying (QC): 5 Lying to Sitting/Side of Bed(Q: 4 Sit to Stand (QC): 5 Chair/Bjh-jm-Nodzx Xfer(QC): 5 Toilet Transfer (QC): 5 Gait Does the Patient Walk?: Yes Mode of Locomotion: Walk Anticipated Mode of Locomotion: Walk Walk 10 feet (QC): 6 Walk 50 ft with 2 Turns(QC): 4 Walk 150 ft (QC): 88 Distance: 120 Gait Assistive Device: FWW Balance Sitting Static: Fair Sitting Dynamic: Fair Standing Static: Fair Standing Dynamic: Fair Assessment/Needs Patient tolerated treatment well. Has been getting up to the bathroom I per nurse. Patient in the bathroom upon PT arrival. Patient performs all observed bed mobility and transfers with SBA/setup. She demonstrates difficulty pulling her LEs into bed at end of treatment. Patient ambulates 120 feet with FWW, with CGA and verbal, cues for safety, progression, posture and conservation of energy. Patient in bed post treatment with all needs met, nursing notified and call light in reach. Rehab Potential: Fair PT Lead Installer Goals Intermediate Goals PT Lead Installer Goals Time Frame: Jan 07, 2022 Roll Left & Right (QC): 6 Sit to Lying (QC): 6 Lying-Sitting on Side/Bed(QC): 6 Sit to Stand (QC): 6 Chair/Lpm-ig-Njwwz Xfer(QC): 6 Toilet Transfer (QC): 6 Car Transfer (QC): 6 Does the Patient Walk: Yes Walk 10 feet (QC): 6 Walk 50ft with 2 Turns (QC): 6 Walk 150 ft (QC): 6 PT Plan Problem List Problem List: Activity Tolerance, Functional Strength, Safety, Balance, Gait, Transfer, Bed Mobility, ROM Treatment/Plan Treatment Plan: Continue Plan of Care Treatment Plan: Bed Mobility, Education, Functional Activity Maikel, Functional Strength, Group Therapy, Gait, Safety, Therapeutic Exercise, Transfers Treatment Duration: Jan 07, 2022 Frequency: 6 times per week Estimated Hrs Per Day: .25 hour per day Patient and/or Family Agrees t: Yes Safety Risks/Education Patient Education: Gait Training, Transfer Techniques Teaching Recipient: Patient Teaching Methods: Demonstration, Discussion Response to Teaching: Verbalize Understanding, Return Demonstration Time/GCodes Time In: 1337 Time Out: 1353 Total Billed Treatment Time: 16 Total Billed Treatment Visit, JUSTINO Agrawal PT Dec 30, 2021 15:59
--- NOTE | 2021-12-30 16:00 | Occupational Therapy Eval ---
OT Evaluation-General/PLF Medical Diagnosis Admission Date Dec 28, 2021 at 12:13 Medical Diagnosis: sepsis, GI bleed, C Diff Onset Date: Dec 28, 2021 Therapy Diagnosis Therapy Diagnosis: weakness, decreased ADL status Precautions Precautions/Isolations: Contact Isolation, Fall Prevention, Pressure Ulcer Referral Physician: Gilmar Aceves Reason: Evaluation/Treatment Medical History Pertinent Medical History: Atrial Fib, Arthritis, DM, HTN, Hypothroidism, OA, Renal Insufficiency Additional Medical History DM, HTN, HLD, RA, OA, single kidney, CKD, C-Diff, appendectomy, R kidney resection, cholecystectomy, tailbone resection, hysterectomy, colectomy with ileostomy, ileostomy reversal Current History admitted with c-diff and continued rectal bleeding. Social History Home: Single Level Current Living Status: grandson Entry Into Home: Stairs With Railing Steps Into Home: 4 ADL-Prior Level of Function SCALE: Activities may be completed with or without assistive devices. 9-Fobjkwctts-vnajmyb completes the activity by him/herself with no assistance from a helper. 5-Set-up or Clean-up Assistance-helper sets up or cleans up; patient completes activity. [place] assists only prior to or following the activity. 4-Supervision or Touching Assistance-helper provides verbal cues and/or touching/steadying and/or contact guard assistance as patient completes act ivity. Assistance may be provided throughout the activity or intermittently. 3-Partial/Moderate Assistance-helper does LESS THAN HALF the effort. [place] lifts, holds or supports trunk or limbs, but provides less than half the effort. 2-Substantial/Maximal Assistance-helper does MORE THAN HALF the effort. [place] lifts or holds trunk or limbs and provides more than half the effort. 8-Xuqagdipu-tsqsfu does ALL the effort. Patient does none of the effort to complete the activity. Or, the assistance of 2 or more helpers is required for the patient to complete the activity. If activity was not attempted, code reason: 7-Patient Refused. 9-Not Applicable-not attempted and the patient did not perform the activity before the current illness, exacerbation or injury. 10-Not Attempted due to Environmental Limitations-(lack of equipment, weather restraints, etc.). 88-Not Attempted due to Medical Conditions or Safety Concerns. ADL PLOF Comments Pt reports IND with ADLs and functional mobility with walker prior to recent hospitalizations. She has a walk in shower (6 inch step in), with built in seat. Self Care: Independent Functional Cognition: Independent OT Current Status Subjective Pt in bathroom, agreeable to OT evaluation. Mental Status/Objective Patient Orientation: Person, Place, Time, Situation Attachments: Telemetry, Other-See Comments (Life vest) Current Upper Extremity ROM WFL Upper Extremity Strength grossly 3/5 ADL-Treatment Eating (QC): 6 (Per pt report) Shower/Bathe Self (QC): 3 (Per clinical judgment, assist with washing BLEs lower legs/feet for thoroughness) On/Off Footwear (QC): 3 (Min A donning R gripper socks, pt able to don L and able to doff bilaterally.) Toileting Hygiene (QC): 6 (IND with toileting) Other Treatments Pt in bathroom, completed toileting independently, and then stood at sink to w antoinette her hands. Pt returned to EOB, holding onto arias/furniture. Walker provided to pt, then she performed functional mobility in hallways, CGA with FWW for longer distance, 120'. Pt returned to room. Post tx, pt in bed, call light in reach and all needs met. Education OT Patient Education: Correct positioning, Energy conservation, Modified ADL techniques, Progress toward Goal/Update tx plan, Purpose of tx/functional activities, Rehab process Teaching Recipient: Patient Teaching Methods: Discussion Response to Teaching: Verbalize Understanding OT Detention Goals Detention Goals Time Frame: Jan 07, 2022 Eating (QC): 6 Oral Hygiene (QC): 6 Toileting Hygiene (QC): 6 Shower/Bathe Self (QC): 6 Upper Body Dressing (QC): 6 Lower Body Dressing (QC): 6 On/Off Footwear (QC): 6 Additional Goals: 1-Demonstrate ADL Tasks, 2-Verbalize Understanding, 3- ImproveStrength/Maikel 1=Demonstrate adherence to instructed precautions during ADL tasks. 2=Patient will verbalize/demonstrate understanding of assistive devices/modifications for ADL. 3=Patient will improve strength/tolerance for activity to enable patient to perform ADL's. OT Education/Plan Problem List/Assessment Assessment: Decreased Activ Tolerance, Decreased UE Strength, Impaired I ADL's Pt would benefit from short term skilled OT services in order to increase BUE Strength and activity tolerance, and increase independence with ADLs and functional mobility in order to maximize LOF for safe discharge. Discharge Recommendations Plan/Recommendations: Continue POC Treatment Plan/Plan of Care Patient would benefit from OT for education, treatment and training to promote independence in ADL's, mobility, safety and/or upper extremity function for ADL's. Plan of Care: ADL Retraining, Functional Mobility, UE Funct Exercise/Act Treatment Duration: Jan 07, 2022 Frequency: 3 times per week (3-5 times per week) Estimated Hrs Per Day: .25 hour per day Agreement: Yes Rehab Potential: Fair Time/GCodes Start Time: 15:35 Stop Time: 15:50 Total Time Billed (hr/min): 25 Billed Treatment Time 1EMRE ADDISON OT Dec 30, 2021 16:00
[2021-12-30 16:05] VITALS: BP 139/76
--- NOTE | 2021-12-30 18:53 | Progress Note ---
Subjective Subjective/Events-last exam Patient is feeling much better. Tolerating PO diet. She has been up walking around the room. Review of Systems Pulmonary: Dyspnea Cardiovascular: No: Chest Pain, Palpitations Gastrointestinal: Abdominal Pain; No: Nausea, Vomiting Neurological: Weakness, Incoordination Focused Exam Lactate Level 12/28/21 15:56: Lactic Acid Level 0.70 Time of Focused Exam: 08:15 Objective Exam Last Set of Vital Signs Vital Signs Date Time Temp Pulse Resp B/P (MAP) Pulse Ox O2 Delivery O2 Flow Rate FiO2 12/30/21 16:05 36.3 84 20 139/76 (97) 100 Room Air 12/28/21 15:07 0.00 12/28/21 15:07 21 Capillary Refill : I&O Intake and Output 12/30/21 00:00 Intake Total 1070 ml Balance 1070 ml Intake Oral 870 ml IV Total 200 ml # Voids 4 # Bowel Movements 2 General: Alert, Oriented X3, No Acute Distress Lungs: Clear to Auscultation, Normal Air Movement Heart: Regular Rate, No Murmurs Abdomen: Normal Bowel Sounds, Soft Extremities: Other (2+ pitting edema) Neuro: Normal Speech Results/Procedures Lab Laboratory Tests 12/30/21 06:17: White Blood Count 6.1, Red Blood Count 3.29L, Hemoglobin 9.6L, Hematocrit 29L, Mean Corpuscular Volume 88, Mean Corpuscular Hemoglobin 29, Mean Corpuscular Hemoglobin Concent 33, Red Cell Distribution Width 15.2H, Platelet Count 243, Mean Platelet Volume 10.4, Immature Granulocyte % (Auto) 0, Neutrophils (%) (Auto) 66, Lymphocytes (%) (Auto) 22, Monocytes (%) (Auto) 7, Eosinophils (%) (Auto) 4, Basophils (%) (Auto) 2, Neutrophils # (Auto) 4.0, Lymphocytes # (Auto) 1.3, Monocytes # (Auto) 0.4, Eosinophils # (Auto) 0.2, Basophils # (Auto) 0.1, Immature Granulocyte # (Auto) 0.0, Sodium Level 141, Potassium Level 4.7, Chloride Level 119H, Carbon Dioxide Level 17L, Anion Gap 5, Blood Urea Nitrogen 15, Creatinine 0.93, Estimat Glomerular Filtration Rate 64, BUN/Creatinine Ratio 16, Glucose Level 86, Calcium Level 6.6L, Corrected Calcium 8.2L, Phosphorus Level 2.1L, Magnesium Level 2.2, Total Bilirubin 0.3, Aspartate Amino Transf (AST/SGOT) 18, Alanine Aminotransferase (ALT/SGPT) 14, Alkaline Phosphatase 45, Total Protein 4.4L, Albumin 2.0L Microbiology 12/28/21 Blood Culture - Preliminary, Resulted No growth 12/28/21 MRSA Screen - Final, Complete MRSA not isolated Radiology PROCEDURE: CT abdomen and pelvis without contrast. TECHNIQUE: Multiple contiguous axial images were obtained through the abdomen and pelvis without the use of intravenous contrast. Auto Exposure Controls were utilized during the CT exam to meet ALARA standards for radiation dose reduction. INDICATION: Periumbilical abdominal pain COMPARISON: 11/17/2021 Unenhanced images of the liver and spleen reveal no focal abnormality. No pancreatic, adrenal gland or left renal abnormality is identified. Right kidney is absent. Gallbladder has been removed. There is fluid distention of colon with diffuse mural thickening. There is extensively thickened sigmoid colon and rectal arias. Surgical findings are seen in the anterior abdominal wall with small amount of gas and fluid along the midline incision site. Unenhanced urinary bladder is distended but otherwise unremarkable. IMPRESSION: Extensive mural thickening of the distal colon and rectum suggestive of proctocolitis. There is a small amount of fluid within the anterior abdominal wall incision site, however, no other focal fluid collection is seen to indicate abscess. Dictated by: Dictated on workstation # [id number] Dict: 12/13/21 1758 Trans: 12/13/21 1816 [facility] [id number] Interpreted by: SUSANNE VILLEGAS MD Electronically signed by: SUSANNE VILLEGAS MD 12/13/21 1816 Assessment/Plan Assessment/Plan Assessment & Plan 76 yo F that presented with rectal bleeding and severe anemia Recurrent C Diff Colitis - Continue PO Vancomycin - Upon arrival to hospital patient did not meet sepsis criteria - 12/30: Plan to treat for 1 additional week Lower GI bleed Anemia of Acute Blood Loss - Type and Cross, will transfuse 1 unit pRBCs and then repeat CBC in AM - Iron panel pending - Consult Dr Nieves, appreciate recommendations - 12/29: Hgb 9.0, will continue to monitor, no further bleeding present - 12/30: Hgb trending up, normal iron panel Acute on Chronic Renal Failure - Improved upon arrival with 1 L NS prior to discharge from [facility] Chronic Systolic CHF Atrial Fibrillation Rate controlled - Does not seem to be in acute exacerbation - Can not tolerated OAC due to GI bleeding - 12/29: Lasix given today for increase LE swelling Severe PEM - Appreciate dietary recommendations Peritoneal Fistula - General Surgery consulted Discharge Planning: Plan to d/c to SNF tomorrow LISA NELSON MD Dec 30, 2021 18:53
[2021-12-30] MEDS ORDERED: VANC125C5 PO (19:06)
[2021-12-30 19:28] VITALS: BP 183/95
[2021-12-30] MEDS: AMITRIPTYLINE 25 MG (ELAVIL) TAB PO SCH (20:50)
[2021-12-30] MEDS: LATANOPROST 0.005% (XALATAN) OPHTH SOLN 2.5 ML OU SCH (20:50)
[2021-12-30 23:30] VITALS: BP 138/84
[2021-12-31] MEDS: VANCOMYCIN 125 MG CAPSULE PO SCH ×5 (00:26→22:16)
[2021-12-31 03:30] VITALS: BP 140/94
[2021-12-31] MEDS: LEVOTHYROXINE 125 MCG (LEVOTHROID) TABLET PO SCH (05:07)
[2021-12-31 06:25] LABS: BASOPHILS # (AUTO) 0.1 10^3/uL (0.0-0.1); BASOPHILS % (AUTO) 1 % (0-10); EOSINOPHILS # (AUTO) 0.2 10^3/uL (0.0-0.3); EOSINOPHILS % (AUTO) 3 % (0-10); HEMATOCRIT 30 % (35-52); HEMOGLOBIN 10.1 g/dL (11.5-16.0); LYMPHOCYTES # (AUTO) 1.1 10^3/uL (1.0-4.0); LYMPHOCYTES % (AUTO) 14 % (12-44); MEAN CORPUSCULAR HEMOGLOBIN 29 pg (25-34); MEAN CORPUSCULAR HGB CONC 33 g/dL (32-36); MEAN CORPUSCULAR VOLUME 87 fL (80-99); MEAN PLATELET VOLUME 10.4 fL (9.0-12.2); MONOCYTES # (AUTO) 0.4 10^3/uL (0.0-1.0); MONOCYTES % (AUTO) 5 % (0-12); NEUTROPHILS # (AUTO) 6.1 10^3/uL (1.8-7.8); NEUTROPHILS % (AUTO) 77 % (42-75); PLATELET COUNT 275 10^3/uL (130-400); WHITE BLOOD COUNT 7.9 10^3/uL (4.3-11.0)
--- NOTE | 2021-12-31 07:16 | Progress Note - Surgery ---
CELIO HOOK 12/31/21 0716: Subjective Date Seen by a Provider: Dec 31, 2021 Time Seen by a Provider: 06:30 Subjective/Events-last exam Patient is not feeling well this AM. Claims the abdominal pain has escalated to an 8/10 even with tramadol being given at 0500. Initially she said the pain was "just everywhere" but when asked she said the pain was associated with the fistula site. She has had nausea throughout the night. She had a BM this morning around 0400 and she believes there was blood in it, has not had a BM since. She is ambulating much less than yesterday due to the pain, there is still not an IS in the room. Review of Systems Pulmonary: No Dyspnea, No Cough Cardiovascular: No: Chest Pain Gastrointestinal: Nausea, Abdominal Pain, Other (patient claims she had blood in stool) Musculoskeletal: No: neck pain Focused Exam Lactate Level 12/28/21 15:56: Lactic Acid Level 0.70 Time of Focused Exam: 08:15 Objective Exam Vital Signs Date Time Temp Pulse Resp B/P (MAP) Pulse Ox O2 Delivery O2 Flow Rate FiO2 12/31/21 03:30 36.2 90 18 140/94 (109) 99 Room Air 12/31/21 01:00 97 12/30/21 23:30 36.1 92 18 138/84 (102) 97 Room Air 12/30/21 20:00 Room Air 12/30/21 19:28 36.4 89 18 183/95 (124) 100 Room Air 12/30/21 19:00 84 12/30/21 16:05 36.3 84 20 139/76 (97) 100 Room Air 12/30/21 11:32 36.3 88 17 133/88 (103) 100 Room Air 12/30/21 08:23 36.2 88 18 130/82 (98) 98 Room Air 12/30/21 08:00 Room Air I & O 12/31/21 07:00 Intake Total 1860 ml Balance 1860 ml Capillary Refill : General Appearance: Chronically ill, Thin Neck: Non Tender; No Lymphadenopathy (L), No Lymphadenopathy (R) Respiratory: Lungs Clear, Normal Breath Sounds, No Accessory Muscle Use, No Respiratory Distress Cardiovascular: Regular Rate, Rhythm, No Murmur Peripheral Pulses: 2+ Radial Pulses (R), 2+ Radial Pulses (L) Gastrointestinal: normal bowel sounds, soft, tenderness (diffuse tenderness to light palpation) Extremity: No Pedal Edema, Other (dorsalis pedis 2+ b/l. Sensation intact b/l in LE) Neurologic/Psychiatric: Alert, Oriented x3 Results Lab Laboratory Tests 12/31/21 06:09: White Blood Count 7.9, Red Blood Count 3.48L, Hemoglobin 10.1L, Hematocrit 30L, Mean Corpuscular Volume 87, Mean Corpuscular Hemoglobin 29, Mean Corpuscular Hemoglobin Concent 33, Red Cell Distribution Width 15.5H, Platelet Count 275, Mean Platelet Volume 10.4, Immature Granulocyte % (Auto) 0, Neutrophils (%) (Auto) 77H, Lymphocytes (%) (Auto) 14, Monocytes (%) (Auto) 5, Eosinophils (%) (Auto) 3, Basophils (%) (Auto) 1, Neutrophils # (Auto) 6.1, Lymphocytes # (Auto) 1.1, Monocytes # (Auto) 0.4, Eosinophils # (Auto) 0.2, Basophils # (Auto) 0.1, Immature Granulocyte # (Auto) 0.0, Phosphorus Level 2.4 Microbiology 12/28/21 Blood Culture - Preliminary, Resulted No growth 12/28/21 MRSA Screen - Final, Complete MRSA not isolated Assessment/Plan Assessment/Plan Assessment/Plan Anemia C. Diff Colitis (Positive test on 12/13/2021) Enterocutaneous fistula Hx of Afib Hgb stabilized at 10.1 from 9.6 yesterday. Check Hgb with AM labs daily, transfuse if level drops below 7. Perform fecal occult blood due to pt. report of blood in stool. Maintain patient on oral vancomycin. Patient did not have an IS next to her bed today so ensure she receives and uses it. Ambulate as much as she can tolerate. Pain control with tramadol. CHRIS NIEVES DO 12/31/21 1013: Subjective Time Seen by a Provider: 09:27 Subjective/Events-last exam Pt seen and examined, states she has more abdominal pain than yesterday. Did h ave BM and tolerating diet without N/V. Review of Systems Pulmonary: No Dyspnea, No Cough Cardiovascular: No: Chest Pain Gastrointestinal: Abdominal Pain, Other (patient claims she had blood in stool); No: Nausea, Vomiting Objective Exam General Appearance: No Apparent Distress, Chronically ill, Thin Respiratory: Lungs Clear, Normal Breath Sounds, No Accessory Muscle Use, No Respiratory Distress Cardiovascular: Regular Rate, Rhythm, No Murmur Gastrointestinal: normal bowel sounds, tenderness (diffuse tenderness to light palpation), other (fistula hole has closed, abdomen feels tense but she is very thin) Extremity: No Pedal Edema Neurologic/Psychiatric: Alert, Oriented x3 Assessment/Plan Assessment/Plan Assessment/Plan Anemia C. Diff Colitis (Positive test on 12/13/2021) Enterocutaneous fistula Hx of Afib Hgb stabilized at 10.1 from 9.6 yesterday. May need to do CT if abdominal pain gets worse, could be collection of fluid from fistula and pt may get relief if it drains. Maintain patient on oral vancomycin. Patient did not have an IS next to her bed today so ensure she receives and uses it. Ambulate as much as she can tolerate. Pain control with tramadol and Fentanyl for breakthrough. Supervisory-Addendum Brief Verification & Attestation Participated in pt care: history, MDM, physical Personally performed: exam, history, MDM, supervision of care Care discussed with: Medical Student Procedures: n/a Verification and Attestation of Medical Student E/M Service A medical student performed and documented this service. I then reviewed and verified all information documented by the medical student and made modifications to such information, when appropriate. I personally performed a physical exam, medical decision making and then discussed any differences between the notes and made revisions as necessary to create one note. Chris Nieves , 12/31/21 , 10:13 CELIO HOOK Dec 31, 2021 07:16 CHRIS NIEVES DO Dec 31, 2021 10:13
[2021-12-31] MEDS: POTASSIUM CL 10MEQ/50ML IVPB 50 ML IV SCH (07:44)
[2021-12-31] MEDS: MAGNESIUM 1 GM/100 ML IVPB 100 ML IV SCH (07:45)
[2021-12-31] MEDS: KCL 20 MEQ TAB (K-DUR) PO SCH (07:45)
[2021-12-31 08:07] LABS: CALCIUM 6.8 MG/DL (8.5-10.1); CREATININE SERUM 1.03 MG/DL (0.60-1.30); POTASSIUM 4.7 MMOL/L (3.6-5.0)
[2021-12-31 08:51] VITALS: BP 144/77
--- NOTE | 2021-12-31 08:56 | Physical Therapy Progress Note ---
Therapy Progress Note Patient adamantly declined any OOB activity and PT stating, "I had a bad day yesterday and a bad night. I'm not doing anything. Maybe tomorrow." PT attempted to educate patient on importance of OOB activity, however, patient continued to decline. Will attempt in a.m. 1 ref ARELI JENNINGS PT Dec 31, 2021 08:56
--- NOTE | 2021-12-31 09:16 | Occupational Ther Daily Note ---
OT Current Status-Daily Note Subjective Pt asleep, lying in bed. Pt easily woke to name. Pt agrees to therapy, states she is not getting out of bed. Mental Status/Objective Patient Orientation: Person, Place, Time, Situation ADL-Treatment Pt refused to complete any OOB tasks. Pt refuses changing of clothes. Pt agrees to oral care in bed. After supplies gathered, pt completed oral care sitting up in bed. Pt left in room with call light/phone in reach. All needs met in room. Therapy Code Descriptions/Definitions Functional [place] Measure: 0=Not Assessed/NA 4=Minimal Assistance 1=Total Assistance 5=Supervision or Setup 2=Maximal Assistance 6=Modified [place] 3=Moderate Assistance 7=Complete IndependenceSCALE: Activities may be completed with or without assistive devices. 8-[id number]-[id number] completes the activity by him/herself with no assistance from a helper. 5-Set-up or Clean-up Assistance-helper sets up or cleans up; patient completes a ctivity. Hart[place] assists only prior to or following the activity. 4-Supervision or Touching Assistance-helper provides verbal cues and/or touching/steadying and/or contact guard assistance as patient completes activity. Assistance may be provided throughout the activity or intermittently. 3-Partial/Moderate Assistance-helper does LESS THAN HALF the effort. Hartly lifts, holds or supports trunk or limbs, but provides less than half the effort. 2-Substantial/Maximal Assistance-helper does MORE THAN HALF the effort. Hartly lifts or holds trunk or limbs and provides more than half the effort. 6-Pnrrftdlc-dxsdyn does ALL the effort. Patient does none of the effort to complete the activity. Or, the assistance of 2 or more helpers is required for the patient to complete the activity. If activity was not attempted, code reason: 7-Patient Refused. 9-Not Applicable-not attempted and the patient did not perform the activity before the current illness, exacerbation or injury. 10-Not Attempted due to Environmental Limitations-(lack of equipment, weather restraints, etc.). 88-Not Attempted due to Medical Conditions or Safety Concerns. Oral Hygiene (QC): 5 (Set up) OT Maintenance Equipment Operator Goals Maintenance Equipment Operator Goals Time Frame: Jan 07, 2022 Eating (QC): 6 Oral Hygiene (QC): 6 Toileting Hygiene (QC): 6 Shower/Bathe Self (QC): 6 Upper Body Dressing (QC): 6 Lower Body Dressing (QC): 6 On/Off Footwear (QC): 6 Additional Goals: 1-Demonstrate ADL Tasks, 2-Verbalize Understanding, 3- ImproveStrength/Maikel 1=Demonstrate adherence to instructed precautions during ADL tasks. 2=Patient will verbalize/demonstrate understanding of assistive devices/modifications for ADL. 3=Patient will improve strength/tolerance for activity to enable patient to perform ADL's. OT Education/Plan Problem List/Assessment Assessment: Decreased Activ Tolerance, Decreased UE Strength, Impaired Self- Care Skills Pt would benefit from short term skilled OT services in order to increase BUE Strength and activity tolerance, and increase independence with ADLs and functional mobility in order to maximize LOF for safe discharge. Discharge Recommendations Plan/Recommendations: Continue POC Treatment Plan/Plan of Care Patient would benefit from OT for education, treatment and training to promote independence in ADL's, mobility, safety and/or upper extremity function for ADL's. Plan of Care: ADL Retraining, Functional Mobility, UE Funct Exercise/Act Treatment Duration: Jan 07, 2022 Frequency: 3 times per week (3-5 times per week) Estimated Hrs Per Day: .25 hour per day Agreement: Yes Rehab Potential: Fair Time/GCodes Start Time: 08:40 Stop Time: 08:53 Total Time Billed (hr/min): 13 Billed Treatment Time 1 visit ADL 1 (13 min) ELIZABETH BUTLER Dec 31, 2021 09:16
[2021-12-31] MEDS: OXYBUTYNIN (DITROPAN) 5 MG TAB PO SCH ×2 (09:19→20:21)
[2021-12-31] MEDS: SACUBITRIL/VALSARTAN 24/26 MG (ENTRESTO) TABLET PO SCH ×2 (09:19→20:21)
[2021-12-31] MEDS: PANTOPRAZOLE 40 MG (PROTONIX) TAB PO SCH (09:19)
[2021-12-31] MEDS ORDERED: fentaNYL INJ 100 MCG/2 ML AMP IVP NR (10:00)
--- NOTE | 2021-12-31 10:02 | Progress Note ---
Subjective Subjective/Events-last exam Patient is a 76 yo Female admitted for C. difficile infection and anemia. She says she is feeling alright this morning. Notes that she had a little nausea yesterday w/o vomiting. Still experiencing abdominal pain, had 4 to 5 bowel movements yesterday. Diarrhea seems to be improving in consistency with soft but formed stools; she noted dark stools yesterday but with no bright red blood visible. Denies SOB, headaches, lightheadedness. Review of Systems General: No Chills, No Malaise HEENT: No Head Aches Pulmonary: No Cough Cardiovascular: No: Chest Pain, Palpitations, Lt Headedness Gastrointestinal: Nausea, Abdominal Pain (More prominent today in LLQ), Diarrhea (Formed but loose stools), Melena (Dark stool noted yesterday); No: Vomiting Genitourinary: No Dysuria, No Frequency Neurological: No: Change in speech Focused Exam Sepsis Stage: Ruled Out Reason for ruling out sepsis: Patient does not meet SIRS criteria for sepsis diagnosis Possible Source: GI Tract/Intra-Abdominal Lactate Level 12/28/21 15:56: Lactic Acid Level 0.70 Time of Focused Exam: 08:15 Objective Exam Last Set of Vital Signs Vital Signs Date Time Temp Pulse Resp B/P (MAP) Pulse Ox O2 Delivery O2 Flow Rate FiO2 12/31/21 08:51 36.6 103 18 144/77 (99) 97 Room Air 12/28/21 15:07 0.00 12/28/21 15:07 21 Capillary Refill : I&O Intake and Output 12/31/21 00:00 Intake Total 2570 ml Balance 2570 ml Intake Oral 2370 ml IV Total 200 ml # Voids 8 # Bowel Movements 4 General: Alert, Oriented X3, Cooperative, No Acute Distress Neck: Supple, No JVD Lungs: Clear to Auscultation, Normal Air Movement Heart: Regular Rate, Normal S1, Normal S2, No Murmurs Abdomen: Normal Bowel Sounds, Soft, No Masses, Other (Tenderness to palpation in LLQ) Extremities: Other (Bilateral pitting edema of the lower legs) Skin: No Rashes, No Breakdown, No Significant Lesion Neuro: Normal Speech, Normal Tone Psych/Mental Status: Mental Status NL, Mood NL Results/Procedures Lab Laboratory Tests 12/31/21 06:09: White Blood Count 7.9, Red Blood Count 3.48L, Hemoglobin 10.1L, Hematocrit 30L, Mean Corpuscular Volume 87, Mean Corpuscular Hemoglobin 29, Mean Corpuscular Hemoglobin Concent 33, Red Cell Distribution Width 15.5H, Platelet Count 275, Mean Platelet Volume 10.4, Immature Granulocyte % (Auto) 0, Neutrophils (%) (Auto) 77H, Lymphocytes (%) (Auto) 14, Monocytes (%) (Auto) 5, Eosinophils (%) (Auto) 3, Basophils (%) (Auto) 1, Neutrophils # (Auto) 6.1, Lymphocytes # (Auto) 1.1, Monocytes # (Auto) 0.4, Eosinophils # (Auto) 0.2, Basophils # (Auto) 0.1, Immature Granulocyte # (Auto) 0.0, Sodium Level 141, Potassium Level 4.7, Chloride Level 117H, Carbon Dioxide Level 16L, Anion Gap 8, Blood Urea Nitrogen 16, Creatinine 1.03, Estimat Glomerular Filtration Rate 57, BUN/Creatinine Ratio 16, Glucose Level 141H, Calcium Level 6.8L, Phosphorus Level 2.4, Magnesium Level 2.0 Microbiology 12/28/21 Blood Culture - Preliminary, Resulted No growth 12/28/21 MRSA Screen - Final, Complete MRSA not isolated Radiology PROCEDURE: CT abdomen and pelvis without contrast. TECHNIQUE: Multiple contiguous axial images were obtained through the abdomen and pelvis without the use of intravenous contrast. Auto Exposure Controls were utilized during the CT exam to meet ALARA standards for radiation dose reduction. INDICATION: Periumbilical abdominal pain COMPARISON: 11/17/2021 Unenhanced images of the liver and spleen reveal no focal abnormality. No pancreatic, adrenal gland or left renal abnormality is identified. Right kidney is absent. Gallbladder has been removed. There is fluid distention of colon with diffuse mural thickening. There is extensively thickened sigmoid colon and rectal arias. Surgical findings are seen in the anterior abdominal wall with small amount of gas and fluid along the midline incision site. Unenhanced urinary bladder is distended but otherwise unremarkable. IMPRESSION: Extensive mural thickening of the distal colon and rectum suggestive of proctocolitis. There is a small amount of fluid within the anterior abdominal wall incision site, however, no other focal fluid collection is seen to indicate abscess. Dictated by: Dictated on workstation # [id number] Dict: 12/13/21 1758 Trans: 12/13/21 1816 SHILPA [id number] Interpreted by: SUSANNE VILLEGAS MD Electronically signed by: SUSANNE VILLEGAS MD 12/13/211815 Meds See medication list. Assessment/Plan Assessment/Plan Admission Dx C. Difficile infection, Anemia Admission Status: Inpatient Order (span 2 midnights) Reason for Inpatient Admission: Patient admitted to assess and treat anemia and to monitor infectious course and vital signs. Transfusion was needed. Assessment & Plan 76 yo F that presented with rectal bleeding and severe anemia Recurrent C Diff Colitis - Continue PO Vancomycin - Upon arrival to hospital patient did not meet sepsis criteria - 12/30: Plan to treat for 1 additional week Lower GI bleed Anemia of Acute Blood Loss - Type and Cross, will transfuse 1 unit pRBCs and then repeat CBC in AM - Iron panel pending - Consult Dr Nieves, appreciate recommendations - 12/29: Hgb 9.0, will continue to monitor, no further bleeding present - 12/30: Hgb trending up, normal iron panel Acute on Chronic Renal Failure - Improved upon arrival with 1 L NS prior to discharge from [facility] Chronic Systolic CHF Atrial Fibrillation Rate controlled - Does not seem to be in acute exacerbation - Can not tolerated OAC due to GI bleeding - 12/29: Lasix given today for increase LE swelling Severe PEM - Appreciate dietary recommendations Peritoneal Fistula - General Surgery consulted Discharge Planning: Plan to d/c to SNF tomorrow Clinical Quality Measures Admission Status Admission Dx C. Diff infection accompanied by rectal bleeding BARBARA GALINDO Dec 31, 2021 10:02
[2021-12-31 12:00] VITALS: BP 127/84
[2021-12-31 16:00] VITALS: BP 153/76
[2021-12-31 19:52] VITALS: BP 142/79
[2021-12-31] MEDS: LATANOPROST 0.005% (XALATAN) OPHTH SOLN 2.5 ML OU SCH (20:21)
[2021-12-31] MEDS: AMITRIPTYLINE 25 MG (ELAVIL) TAB PO SCH (20:22)
[2021-12-31] MEDS: ACETAMINOPHEN ER 650 MG (TYLENOL ARTHRITIS) PO PRN (22:16)
[2021-12-31 23:13] VITALS: BP 139/81
[2022-01-01] VITALS (7 sets, daily range): BP systolic 122–173; BP diastolic 72–91
[2022-01-01 04:56] LABS: BASOPHILS # (AUTO) 0.1 10^3/uL (0.0-0.1); BASOPHILS % (AUTO) 1 % (0-10); EOSINOPHILS # (AUTO) 0.2 10^3/uL (0.0-0.3); EOSINOPHILS % (AUTO) 4 % (0-10); HEMATOCRIT 27 % (35-52); HEMOGLOBIN 8.8 g/dL (11.5-16.0); LYMPHOCYTES # (AUTO) 1.2 10^3/uL (1.0-4.0); LYMPHOCYTES % (AUTO) 23 % (12-44); MEAN CORPUSCULAR HEMOGLOBIN 29 pg (25-34); MEAN CORPUSCULAR HGB CONC 33 g/dL (32-36); MEAN CORPUSCULAR VOLUME 88 fL (80-99); MEAN PLATELET VOLUME 10.2 fL (9.0-12.2); MONOCYTES # (AUTO) 0.4 10^3/uL (0.0-1.0); MONOCYTES % (AUTO) 7 % (0-12); NEUTROPHILS # (AUTO) 3.3 10^3/uL (1.8-7.8); NEUTROPHILS % (AUTO) 64 % (42-75); PLATELET COUNT 240 10^3/uL (130-400); WHITE BLOOD COUNT 5.2 10^3/uL (4.3-11.0)
[2022-01-01 05:08] LABS: POTASSIUM 4.9 MMOL/L (3.6-5.0)
[2022-01-01 05:10] LABS: CALCIUM 6.8 MG/DL (8.5-10.1)
[2022-01-01 05:11] LABS: TOTAL PROTEIN 4.3 GM/DL (6.4-8.2)
[2022-01-01 05:13] LABS: BILIRUBIN,TOTAL 0.3 MG/DL (0.1-1.0)
[2022-01-01 05:15] LABS: CREATININE SERUM 0.95 MG/DL (0.60-1.30)
[2022-01-01] MEDS: VANCOMYCIN 125 MG CAPSULE PO SCH ×4 (05:24→23:14)
[2022-01-01] MEDS: LEVOTHYROXINE 125 MCG (LEVOTHROID) TABLET PO SCH (05:25)
--- NOTE | 2022-01-01 08:02 | Progress Note - Hospitalist ---
Subjective HPI/CC On Admission Date Seen by Provider: Jan 01, 2022 Time Seen by Provider: 11:00 Subjective/Events-last exam No major issues Steroid suppository ordered by Dr Nieves Labs stable Review of Systems Gastrointestinal: Melena Focused Exam Time of Focused Exam: 08:15 Objective Exam Vital Signs Vital Signs Date Time Temp Pulse Resp B/P (MAP) Pulse Ox O2 Delivery O2 Flow Rate FiO2 01/01/22 12:35 90 01/01/22 11:17 36.3 18 139/78 (98) 97 Room Air 12/28/21 15:07 0.00 12/28/21 15:07 21 Capillary Refill : General Appearance: No Apparent Distress, WD/WN, Chronically ill Respiratory: Lungs Clear, Normal Breath Sounds Cardiovascular: Regular Rate, Rhythm Neurologic/Psychiatric: Alert, Oriented x3, No Motor/Sensory Deficits, 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 Results/Procedures Lab Laboratory Tests 01/01/22 04:36 Patient resulted labs reviewed. Assessment/Plan Assessment and Plan Assess & Plan/Chief Complaint Assessment: Colitis Hematochezia Recent C diff Recent COVID Debility Ischemic cardiomyopathy Life vest maintained Plan: Pain control LORENZO MIMS DO Jan 01, 2022 08:02
[2022-01-01] MEDS: OXYBUTYNIN (DITROPAN) 5 MG TAB PO SCH ×2 (09:14→20:07)
[2022-01-01] MEDS: PANTOPRAZOLE 40 MG (PROTONIX) TAB PO SCH (09:14)
[2022-01-01] MEDS: SACUBITRIL/VALSARTAN 24/26 MG (ENTRESTO) TABLET PO SCH ×2 (09:14→20:07)
--- NOTE | 2022-01-01 10:52 | Physical Therapy Progress Note ---
Therapy Progress Note Pt refused therapy as she has just returned from sitting and using the restroom. [id number] NATHALY MUSTAFA PT Jan 01, 2022 10:52
--- NOTE | 2022-01-01 11:12 | Progress Note - Surgery ---
CELIO HOOK 01/01/22 1112: Subjective Date Seen by a Provider: Jan 01, 2022 Time Seen by a Provider: 07:30 Subjective/Events-last exam Patient is feeling much better today than she did yesterday. Abdominal pain is still present at fistula sight but not as bad as yesterday. She reports that she had a small amount of bright red blood in her stool this morning. She continues to ambulate and move from bed to chair. RN for the patient said he was going to get her an IS. Review of Systems General: Chills; No Night Sweats Pulmonary: No Dyspnea, No Cough Cardiovascular: No: Chest Pain Gastrointestinal: Nausea, Abdominal Pain; No: Vomiting Genitourinary: No Dysuria, No Frequency Musculoskeletal: No: neck pain Focused Exam Time of Focused Exam: 08:15 Objective Exam Vital Signs Date Time Temp Pulse Resp B/P (MAP) Pulse Ox O2 Delivery O2 Flow Rate FiO2 01/01/22 08:00 Room Air 01/01/22 07:32 36.3 90 18 122/72 (89) 98 Room Air 01/01/22 07:00 93 01/01/22 03:33 36.1 93 16 128/81 (97) 98 Room Air 01/01/22 02:34 36.7 95 100 01/01/22 01:01 95 12/31/21 23:13 36.7 104 16 139/81 (100) 100 Room Air 12/31/21 20:39 Room Air 12/31/21 19:52 36.3 84 18 142/79 (100) 100 Room Air 12/31/21 19:00 97 12/31/21 16:00 36.6 87 18 153/76 (101) 99 Room Air 12/31/21 12:42 114 12/31/21 12:00 36.1 94 18 127/84 (98) 98 Room Air I & O 01/01/22 07:00 Intake Total 1360 ml Balance 1360 ml Capillary Refill : General Appearance: No Apparent Distress, Chronically ill, Thin Neck: Non Tender; No Lymphadenopathy (L), No Lymphadenopathy (R) Respiratory: Lungs Clear, Normal Breath Sounds, No Accessory Muscle Use, No Respiratory Distress Cardiovascular: Regular Rate, Rhythm, No Murmur Peripheral Pulses: 2+ Radial Pulses (R), 2+ Radial Pulses (L) Gastrointestinal: normal bowel sounds, soft, tenderness (still has diffuse tenderness but more tender near fistula sight) Neurologic/Psychiatric: Alert Results Lab Laboratory Tests 01/01/22 04:36: White Blood Count 5.2, Red Blood Count 3.07L, Hemoglobin 8.8L, Hematocrit 27L, Mean Corpuscular Volume 88, Mean Corpuscular Hemoglobin 29, Mean Corpuscular Hemoglobin Concent 33, Red Cell Distribution Width 15.7H, Platelet Count 240, Mean Platelet Volume 10.2, Immature Granulocyte % (Auto) 0, Neutrophils (%) (Auto) 64, Lymphocytes (%) (Auto) 23, Monocytes (%) (Auto) 7, Eosinophils (%) (Auto) 4, Basophils (%) (Auto) 1, Neutrophils # (Auto) 3.3, Lymphocytes # (Auto) 1.2, Monocytes # (Auto) 0.4, Eosinophils # (Auto) 0.2, Basophils # (Auto) 0.1, Immature Granulocyte # (Auto) 0.0, Sodium Level 142, Potassium Level 4.9, Chloride Level 117H, Carbon Dioxide Level 16L, Anion Gap 9, Blood Urea Nitrogen 16, Creatinine 0.95, Estimat Glomerular Filtration Rate 62, BUN/Creatinine Ratio 17, Glucose Level 102, Calcium Level 6.8L, Corrected Calcium 8.4L, Total Bilirubin 0.3, Aspartate Amino Transf (AST/SGOT) 13, Alanine Aminotransferase (ALT/SGPT) 12, Alkaline Phosphatase 41, Total Protein 4.3L, Albumin 2.0L Microbiology 12/28/21 Blood Culture - Preliminary, Resulted No growth 12/28/21 MRSA Screen - Final, Complete MRSA not isolated Assessment/Plan Assessment/Plan Assessment/Plan Anemia C. Diff Colitis (Positive test on 12/13/2021) Enterocutaneous fistula Hx of Afib Hgb dropped to 8.8 from 10.1 yesterday, monitor with AM labs. Maintain patient on oral vancomycin. Patient did not have an IS next to her bed today so ensure she receives and uses it. Ambulate as much as she can tolerate. Pain control with tramadol. CHRIS NIEVES DO 01/01/22 1147: Subjective Time Seen by a Provider: 10:34 Subjective/Events-last exam Pt seen and examined, states she feels better than yesterday. Review of Systems General: Chills; No Night Sweats Pulmonary: No Dyspnea, No Cough Cardiovascular: No: Chest Pain Gastrointestinal: Nausea, Abdominal Pain; No: Vomiting Genitourinary: No Dysuria, No Frequency Musculoskeletal: neck pain Objective Exam General Appearance: No Apparent Distress, Chronically ill, Thin Respiratory: Lungs Clear, Normal Breath Sounds, No Accessory Muscle Use, No Respiratory Distress Cardiovascular: Regular Rate, Rhythm, No Murmur Gastrointestinal: normal bowel sounds, soft, tenderness (still has diffuse tenderness but more tender near fistula sight, less than yesterday) Neurologic/Psychiatric: Alert Assessment/Plan Assessment/Plan Assessment/Plan Anemia C. Diff Colitis (Positive test on 12/13/2021) Enterocutaneous fistula Hx of Afib Hgb dropped to 8.8 from 10.1 yesterday, monitor with AM labs. Maintain patient on oral vancomycin and will try a steroid rectal suppository. Patient did not have an IS next to her bed today so ensure she receives and uses it. Ambulate as much as she can tolerate. Pain control with tramadol. Supervisory-Addendum Brief Verification & Attestation Participated in pt care: history, MDM, physical Personally performed: exam, history, MDM, supervision of care Care discussed with: Medical Student Procedures: n/a Verification and Attestation of Medical Student E/M Service A medical student performed and documented this service. I then reviewed and verified all information documented by the medical student and made modifications to such information, when appropriate. I personally performed a physical exam, medical decision making and then discussed any differences between the notes and made revisions as necessary to create one note. Chris Nieves , 01/01/22 , 11:51 CELIO HOOK Jan 01, 2022 11:12 CHRIS NIEVES DO Jan 01, 2022 11:47
[2022-01-01] MEDS: AMITRIPTYLINE 25 MG (ELAVIL) TAB PO SCH (20:07)
[2022-01-01] MEDS: LATANOPROST 0.005% (XALATAN) OPHTH SOLN 2.5 ML OU SCH (20:07)
[2022-01-01] MEDS: ACETAMINOPHEN ER 650 MG (TYLENOL ARTHRITIS) PO PRN (23:14)
[2022-01-02] VITALS (7 sets, daily range): BP systolic 136–163; BP diastolic 83–93
[2022-01-02] MEDS: LEVOTHYROXINE 125 MCG (LEVOTHROID) TABLET PO SCH (05:36)
[2022-01-02] MEDS: VANCOMYCIN 125 MG CAPSULE PO SCH ×3 (05:37→16:43)
[2022-01-02 05:46] LABS: BASOPHILS # (AUTO) 0.1 10^3/uL (0.0-0.1); BASOPHILS % (AUTO) 1 % (0-10); EOSINOPHILS # (AUTO) 0.3 10^3/uL (0.0-0.3); EOSINOPHILS % (AUTO) 5 % (0-10); HEMATOCRIT 27 % (35-52); LYMPHOCYTES # (AUTO) 1.4 10^3/uL (1.0-4.0); LYMPHOCYTES % (AUTO) 23 % (12-44); MEAN CORPUSCULAR HEMOGLOBIN 29 pg (25-34); MEAN CORPUSCULAR HGB CONC 33 g/dL (32-36); MEAN CORPUSCULAR VOLUME 89 fL (80-99); MEAN PLATELET VOLUME 10.4 fL (9.0-12.2); MONOCYTES # (AUTO) 0.4 10^3/uL (0.0-1.0); MONOCYTES % (AUTO) 6 % (0-12); NEUTROPHILS # (AUTO) 3.9 10^3/uL (1.8-7.8); NEUTROPHILS % (AUTO) 65 % (42-75); PLATELET COUNT 273 10^3/uL (130-400); WHITE BLOOD COUNT 5.9 10^3/uL (4.3-11.0)
[2022-01-02 06:08] LABS: ALBUMIN 2.1 GM/DL (3.2-4.5); POTASSIUM 4.9 MMOL/L (3.6-5.0)
[2022-01-02 06:09] LABS: CALCIUM 7.3 MG/DL (8.5-10.1)
[2022-01-02 06:10] LABS: TOTAL PROTEIN 4.6 GM/DL (6.4-8.2)
[2022-01-02 06:12] LABS: BILIRUBIN,TOTAL 0.4 MG/DL (0.1-1.0)
[2022-01-02 06:14] LABS: CREATININE SERUM 0.99 MG/DL (0.60-1.30)
--- NOTE | 2022-01-02 06:41 | Progress Note - Hospitalist ---
Subjective HPI/CC On Admission Date Seen by Provider: Jan 02, 2022 Time Seen by Provider: 11:00 Subjective/Events-last exam No major issues No blood in stool at this time Check meds labs No other concerns Review of Systems General: Fatigue, Malaise Focused Exam Time of Focused Exam: 08:15 Objective Exam Vital Signs Vital Signs Date Time Temp Pulse Resp B/P (MAP) Pulse Ox O2 Delivery O2 Flow Rate FiO2 01/02/22 16:23 37.2 96 18 157/84 (108) 99 Room Air 12/28/21 15:07 0.00 12/28/21 15:07 21 Capillary Refill : General Appearance: No Apparent Distress, WD/WN, Chronically ill Respiratory: Lungs Clear, Normal Breath Sounds Cardiovascular: Regular Rate, Rhythm Results/Procedures Lab Laboratory Tests 01/02/22 05:02 Patient resulted labs reviewed. Assessment/Plan Assessment and Plan Assess & Plan/Chief Complaint Assessment: Colitis Hematochezia Recent C diff Recent COVID Debility Ischemic cardiomyopathy Life vest maintained Plan: Pain control LORENZO MIMS DO Jan 02, 2022 06:40
[2022-01-02] MEDS: PANTOPRAZOLE 40 MG (PROTONIX) TAB PO SCH (08:47)
[2022-01-02] MEDS: OXYBUTYNIN (DITROPAN) 5 MG TAB PO SCH ×2 (08:47→19:43)
[2022-01-02] MEDS: SACUBITRIL/VALSARTAN 24/26 MG (ENTRESTO) TABLET PO SCH ×2 (08:47→19:43)
--- NOTE | 2022-01-02 09:09 | Progress Note - Surgery ---
CELIO HOOK 01/02/22 0909: Subjective Date Seen by a Provider: Jan 02, 2022 Time Seen by a Provider: 07:40 Subjective/Events-last exam Patient claims she is feeling better today. Pain in abdomen associated with fistula site is a 5/10 but improving. She had a BM this morning and reported a small amount of bright red blood, she did not receive steroid suppository yesterday. She continues to ambulate and she expressed that she would like to move around more. Dressing over fistula was changed last night and was still clean this AM. Review of Systems General: No Chills, No Night Sweats Pulmonary: No Dyspnea Cardiovascular: No: Chest Pain Gastrointestinal: Nausea, Abdominal Pain; No: Vomiting Musculoskeletal: No: neck pain Focused Exam Time of Focused Exam: 08:15 Objective Exam Vital Signs Date Time Temp Pulse Resp B/P (MAP) Pulse Ox O2 Delivery O2 Flow Rate FiO2 01/02/22 07:19 36.6 98 16 137/83 (101) 97 Room Air 01/02/22 07:00 98 01/02/22 03:11 36.3 95 18 160/90 (113) 96 Room Air 01/02/22 00:31 36.3 90 16 152/86 (108) 97 Room Air 01/01/22 22:09 96 158/91 (113) 01/01/22 21:00 37.0 90 22 173/85 (114) 96 Room Air 01/01/22 19:56 Room Air 01/01/22 19:00 100 01/01/22 15:58 36.6 83 18 141/77 (98) 100 Room Air 01/01/22 12:35 90 01/01/22 11:17 36.3 96 18 139/78 (98) 97 Room Air I & O 01/02/22 07:00 Intake Total 970 ml Balance 970 ml Capillary Refill : General Appearance: No Apparent Distress, Chronically ill, Thin Neck: Non Tender; No Lymphadenopathy (L), No Lymphadenopathy (R) Respiratory: Lungs Clear, Normal Breath Sounds, No Accessory Muscle Use, No Respiratory Distress Cardiovascular: Regular Rate, Rhythm, No Murmur Peripheral Pulses: 2+ Radial Pulses (R), 2+ Radial Pulses (L) Gastrointestinal: normal bowel sounds, soft, tenderness (diffuse, less than yesterday), other (Fistula site closed, no blood or purulent fluid on dressing) Neurologic/Psychiatric: Alert, Oriented x3 Results Lab Laboratory Tests 01/02/22 05:02: White Blood Count 5.9, Red Blood Count 3.07L, Hemoglobin 9.0L, Hematocrit 27L, Mean Corpuscular Volume 89, Mean Corpuscular Hemoglobin 29, Mean Corpuscular Hemoglobin Concent 33, Red Cell Distribution Width 15.9H, Platelet Count 273, Mean Platelet Volume 10.4, Immature Granulocyte % (Auto) 0, Neutrophils (%) (Auto) 65, Lymphocytes (%) (Auto) 23, Monocytes (%) (Auto) 6, Eosinophils (%) (Auto) 5, Basophils (%) (Auto) 1, Neutrophils # (Auto) 3.9, Lymphocytes # (Auto) 1.4, Monocytes # (Auto) 0.4, Eosinophils # (Auto) 0.3, Basophils # (Auto) 0.1, Immature Granulocyte # (Auto) 0.0, Sodium Level 144, Potassium Level 4.9, Chloride Level 118H, Carbon Dioxide Level 17L, Anion Gap 9, Blood Urea Nitrogen 16, Creatinine 0.99, Estimat Glomerular Filtration Rate 59, BUN/Creatinine Ratio 16, Glucose Level 95, Calcium Level 7.3L, Corrected Calcium 8.8, Total Bilirubin 0.4, Aspartate Amino Transf (AST/SGOT) 15, Alanine Aminotransferase (ALT/SGPT) 13, Alkaline Phosphatase 41, Total Protein 4.6L, Albumin 2.1L Microbiology 12/28/21 Blood Culture - Preliminary, Resulted No growth 12/28/21 MRSA Screen - Final, Complete MRSA not isolated Assessment/Plan Assessment/Plan Assessment/Plan Anemia C. Diff Colitis (Positive test on 12/13/2021) Enterocutaneous fistula Hx of Afib Hgb stable at 9.0 today from 8.8 yesterday, monitor with AM labs. Maintain patient on oral vancomycin and will try a steroid rectal suppository. Patient did not have an IS next to her bed today so ensure she receives and uses it. Ambulate as much as she can tolerate. Pain control with tramadol. CHRIS NIEVES DO 01/02/22 1640: Subjective Time Seen by a Provider: 12:31 Subjective/Events-last exam Pt seen and examined, states she has more abdominal pain today. She is not getting up to move; "I feel tired and have pain". Tolerating diet, thinks the BM was formed and much less blood than previous BM. Review of Systems General: Fatigue, Malaise Pulmonary: No Dyspnea Cardiovascular: No: Chest Pain Gastrointestinal: Abdominal Pain; No: Nausea, Vomiting Objective Exam General Appearance: Chronically ill, Thin Neck: Non Tender Respiratory: Lungs Clear, Normal Breath Sounds, No Accessory Muscle Use, No Res piratory Distress Cardiovascular: Regular Rate, Rhythm, No Murmur Gastrointestinal: normal bowel sounds, soft, tenderness (diffuse, less than yesterday), other (Fistula site closed, no blood or fluid on dressing) Assessment/Plan Assessment/Plan Assessment/Plan Anemia C. Diff Colitis (Positive test on 12/13/2021) Enterocutaneous fistula Hx of Afib Hgb stable at 9.0 today from 8.8 yesterday, monitor with AM labs. Maintain patient on oral vancomycin and will try a steroid rectal suppository. Patient did not have an IS next to her bed today so ensure she receives and uses it. Ambulate as much as she can tolerate. Steroid suppository ordered, pain control with tramadol. Supervisory-Addendum Brief Verification & Attestation Participated in pt care: history, MDM, physical Personally performed: exam, history, MDM, supervision of care Care discussed with: Medical Student Procedures: n/a Verification and Attestation of Medical Student E/M Service A medical student performed and documented this service. I then reviewed and verified all information documented by the medical student and made modifications to such information, when appropriate. I personally performed a physical exam, medical decision making and then discussed any differences between the notes and made revisions as necessary to create one note. Chris Nieves , 01/02/22 , 16:40 CELIO HOOK Jan 02, 2022 09:09 CHRIS NIEVES DO Jan 02, 2022 16:40
[2022-01-02] MEDS: HYDROCORTISONE 25 MG SUPPOSITORY (ANUSOL HC) PR SCH (17:59)
[2022-01-02] MEDS: AMITRIPTYLINE 25 MG (ELAVIL) TAB PO SCH (19:43)
[2022-01-02] MEDS: LATANOPROST 0.005% (XALATAN) OPHTH SOLN 2.5 ML OU SCH (19:44)
[2022-01-03] VITALS (8 sets, daily range): BP systolic 132–166; BP diastolic 77–93
[2022-01-03] MEDS: VANCOMYCIN 125 MG CAPSULE PO SCH ×5 (00:22→23:06)
[2022-01-03] MEDS: HYDROCORTISONE 25 MG SUPPOSITORY (ANUSOL HC) PR SCH ×4 (00:22→23:05)
[2022-01-03 05:40] LABS: BASOPHILS # (AUTO) 0.1 10^3/uL (0.0-0.1); BASOPHILS % (AUTO) 1 % (0-10); EOSINOPHILS # (AUTO) 0.2 10^3/uL (0.0-0.3); EOSINOPHILS % (AUTO) 3 % (0-10); HEMATOCRIT 29 % (35-52); HEMOGLOBIN 9.5 g/dL (11.5-16.0); LYMPHOCYTES % (AUTO) 14 % (12-44); MEAN CORPUSCULAR HEMOGLOBIN 29 pg (25-34); MEAN CORPUSCULAR HGB CONC 33 g/dL (32-36); MEAN CORPUSCULAR VOLUME 90 fL (80-99); MEAN PLATELET VOLUME 9.6 fL (9.0-12.2); MONOCYTES # (AUTO) 0.3 10^3/uL (0.0-1.0); MONOCYTES % (AUTO) 4 % (0-12); NEUTROPHILS # (AUTO) 5.7 10^3/uL (1.8-7.8); NEUTROPHILS % (AUTO) 78 % (42-75); PLATELET COUNT 277 10^3/uL (130-400); WHITE BLOOD COUNT 7.3 10^3/uL (4.3-11.0)
[2022-01-03] MEDS: LEVOTHYROXINE 125 MCG (LEVOTHROID) TABLET PO SCH (05:42)
[2022-01-03 05:50] LABS: ALBUMIN 2.2 GM/DL (3.2-4.5); POTASSIUM 4.7 MMOL/L (3.6-5.0)
[2022-01-03 05:51] LABS: CALCIUM 7.8 MG/DL (8.5-10.1)
[2022-01-03 05:53] LABS: TOTAL PROTEIN 4.8 GM/DL (6.4-8.2)
[2022-01-03 05:54] LABS: BILIRUBIN,TOTAL 0.5 MG/DL (0.1-1.0)
--- NOTE | 2022-01-03 06:53 | Progress Note - Hospitalist ---
Subjective HPI/CC On Admission Date Seen by Provider: Jan 03, 2022 Time Seen by Provider: 11:00 Subjective/Events-last exam No complaints Labs reviewed Lifevest on No falls Focused Exam Time of Focused Exam: 08:15 Objective Exam Vital Signs Vital Signs Date Time Temp Pulse Resp B/P (MAP) Pulse Ox O2 Delivery O2 Flow Rate FiO2 01/03/22 16:08 36.7 95 20 166/93 (117) 100 Room Air 12/28/21 15:07 0.00 12/28/21 15:07 21 Capillary Refill : General Appearance: No Apparent Distress, WD/WN, Chronically ill Respiratory: Lungs Clear Cardiovascular: Regular Rate, Rhythm Neurologic/Psychiatric: Alert, Oriented x3, No Motor/Sensory Deficits, 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 Results/Procedures Lab Laboratory Tests 01/03/22 05:27 Patient resulted labs reviewed. Assessment/Plan Assessment and Plan Assess & Plan/Chief Complaint Assessment: Colitis Hematochezia Recent C diff Recent COVID Debility Ischemic cardiomyopathy Life vest maintained Plan: Pain control LORENZO MIMS DO Jan 03, 2022 06:53
[2022-01-03] MEDS: PANTOPRAZOLE 40 MG (PROTONIX) TAB PO SCH (08:35)
[2022-01-03] MEDS: SACUBITRIL/VALSARTAN 24/26 MG (ENTRESTO) TABLET PO SCH ×2 (08:35→19:57)
[2022-01-03] MEDS: OXYBUTYNIN (DITROPAN) 5 MG TAB PO SCH ×2 (08:36→19:57)
--- NOTE | 2022-01-03 08:49 | Physical Therapy Daily Note ---
PT Daily Note-Current Subjective Patient lying supine in bed upon PT arrival, agreeable to treatment. Transfers SCALE: Activities may be completed with or without assistive devices. 7-Omewriwrnr-bcrdvlm completes the activity by him/herself with no assistance from a helper. 5-Set-up or Clean-up Assistance-helper sets up or cleans up; patient completes activity. [place] assists only prior to or following the activity. 4-Supervision or Touching Assistance-helper provides verbal cues and/or touching/steadying and/or contact guard assistance as patient completes act ivity. Assistance may be provided throughout the activity or intermittently. 3-Partial/Moderate Assistance-helper does LESS THAN HALF the effort. [place] lifts, holds or supports trunk or limbs, but provides less than half the effort. 2-Substantial/Maximal Assistance-helper does MORE THAN HALF the effort. [place] lifts or holds trunk or limbs and provides more than half the effort. 1-Mqvwmdykw-ycxnpz does ALL the effort. Patient does none of the effort to complete the activity. Or, the assistance of 2 or more helpers is required for the patient to complete the activity. If activity was not attempted, code reason: 7-Patient Refused. 9-Not Applicable-not attempted and the patient did not perform the activity before the current illness, exacerbation or injury. 10-Not Attempted due to Environmental Limitations-(lack of equipment, weather restraints, etc.). 88-Not Attempted due to Medical Conditions or Safety Concerns. Roll Left & Right (QC): 5 Sit to Lying (QC): 5 Lying to Sitting/Side of Bed(Q: 5 Sit to Stand (QC): 5 Chair/Jtp-ac-Wfjrs Xfer(QC): 5 Weight Bearing Right Lower Extremity: Right Full Weight Bearing Left Lower Extremity: Left Full Weight Bearing Gait Training Does the Patient Walk?: Yes Distance: 130 feet Walk 10 feet (QC): 4 Walk 50 ft with 2 Turns(QC): 4 Gait Assistive Device: FWW Exercises Supine Ex: Ankle pumps, Quad Set, Glut sets Supine Reps: 20 Assessment Current Status: Fair Progress Patient tolerated treatment well. Demonstrates setup for all bed mobility and transfers. Performs LE therapeutic exercise as listed. Patient ambulates 130 feet with FWW, with setup and verbal cues for conservation of energy. Patient in chair post treatment with all needs met, nursing notified, call light in hand. PT Group Home Goals Group Home Goals PT Insurance Loss Control Surveyor Goals Time Frame: Jan 07, 2022 Roll Left & Right (QC): 6 Sit to Lying (QC): 6 Lying-Sitting on Side/Bed(QC): 6 Sit to Stand (QC): 6 Chair/Wtc-ho-Rrfip Xfer(QC): 6 Toilet Transfer (QC): 6 Car Transfer (QC): 6 Does the Patient Walk: Yes Walk 10 feet (QC): 6 Walk 50ft with 2 Turns (QC): 6 Walk 150 ft (QC): 6 PT Plan Treatment/Plan Treatment Plan: Continue Plan of Care Treatment Plan: Bed Mobility, Education, Functional Activity Maikel, Functional Strength, Group Therapy, Gait, Safety, Therapeutic Exercise, Transfers Treatment Duration: Jan 07, 2022 Frequency: 6 times per week Estimated Hrs Per Day: .25 hour per day Patient and/or Family Agrees t: Yes Safety Risks/Education Patient Education: Gait Training, Transfer Techniques Teaching Recipient: Patient Teaching Methods: Demonstration, Discussion Response to Teaching: Verbalize Understanding, Return Demonstration Time/GCodes Time In: 819 Time Out: 845 Total Billed Treatment Time: 24 Total Billed Treatment Visit, Ex, Gait JUSTINO MCGRATH PT Jan 03, 2022 08:49
--- NOTE | 2022-01-03 09:38 | Progress Note - Surgery ---
CELIO HOOK 01/03/22 0938: Subjective Date Seen by a Provider: Jan 03, 2022 Time Seen by a Provider: 08:10 Subjective/Events-last exam Patient says she is doing better today with less abdominal pain than yesterday. She had a BM last night that she said had a small amount of BRB. She did not wa nt the steroid suppository. She is ambulating to use the restroom and to get into chair. She is eating a normal diet but says she does not have much of an appetite because it hurts when she eats. She denied the pain being retrosternal, said it localizes to the "middle of her stomach". Review of Systems General: No Chills; Night Sweats, Fatigue, Appetite (lack of appetite) HEENT: No Head Aches, No Dysphasia, No Sore Throat Pulmonary: No Dyspnea, No Cough Cardiovascular: No: Chest Pain, Lt Headedness Gastrointestinal: Diarrhea; No: Nausea, Vomiting, Abdominal Pain, Melena Genitourinary: No Dysuria; Frequency; No Hematuria Musculoskeletal: neck pain; No: shoulder pain, back pain Neurological: Weakness; No: Numbness, Confusion Focused Exam Time of Focused Exam: 08:15 Objective Exam Vital Signs Date Time Temp Pulse Resp B/P (MAP) Pulse Ox O2 Delivery O2 Flow Rate FiO2 01/03/22 07:32 36.9 100 18 159/77 (104) 97 Room Air 01/03/22 07:29 Room Air 01/03/22 07:00 101 01/03/22 03:50 36.9 102 16 152/90 (110) 97 Room Air 01/03/22 01:00 103 01/02/22 23:42 36.5 100 18 136/92 (107) 99 Room Air 01/02/22 22:25 Room Air 01/02/22 20:20 Room Air 01/02/22 19:35 36.8 95 18 163/87 (112) 99 Room Air 01/02/22 19:03 Room Air 01/02/22 19:00 95 01/02/22 16:23 37.2 96 18 157/84 (108) 99 Room Air 01/02/22 12:36 92 01/02/22 12:10 36.8 93 16 160/93 (115) 96 Room Air I & O 01/03/22 07:00 Intake Total 718 ml Balance 718 ml Capillary Refill : General Appearance: No Apparent Distress, Chronically ill, Thin HEENT: PERRL/EOMI, Moist Mucous Membranes Neck: Supple, Tender Lateral (on right superior SCM, felt like a tight muscle) Respiratory: Lungs Clear, Normal Breath Sounds, No Accessory Muscle Use, No Respiratory Distress Cardiovascular: No Murmur, Tachycardia Peripheral Pulses: 2+ Dorsalis Pedis (R), 2+ Left Dors-Pedis (L), 2+ Radial Pulses (R), 2+ Radial Pulses (L) Gastrointestinal: normal bowel sounds, non tender, soft, other (Fistula site draining mild amount of blood) Extremity: Calf Tenderness (b/l), Pedal Edema (1+ b/l) Neurologic/Psychiatric: Alert, Oriented x3, Depressed Affect Skin: Warm/Dry, Pallor Lymphatic: No Adenopathy Results Lab Laboratory Tests 01/03/22 05:27: White Blood Count 7.3, Red Blood Count 3.23L, Hemoglobin 9.5L, Hematocrit 29L, Mean Corpuscular Volume 90, Mean Corpuscular Hemoglobin 29, Mean Corpuscular H emoglobin Concent 33, Red Cell Distribution Width 15.8H, Platelet Count 277, Mean Platelet Volume 9.6, Immature Granulocyte % (Auto) 0, Neutrophils (%) (Auto) 78H, Lymphocytes (%) (Auto) 14, Monocytes (%) (Auto) 4, Eosinophils (%) (Auto) 3, Basophils (%) (Auto) 1, Neutrophils # (Auto) 5.7, Lymphocytes # (Auto) 1.0, Monocytes # (Auto) 0.3, Eosinophils # (Auto) 0.2, Basophils # (Auto) 0.1, Immature Granulocyte # (Auto) 0.0, Sodium Level 141, Potassium Level 4.7, Chloride Level 116H, Carbon Dioxide Level 16L, Anion Gap 9, Blood Urea Nitrogen 16, Creatinine 1.00, Estimat Glomerular Filtration Rate 59, BUN/Creatinine Ratio 16, Glucose Level 106H, Calcium Level 7.8L, Corrected Calcium 9.2, Total Bilirubin 0.5, Aspartate Amino Transf (AST/SGOT) 24, Alanine Aminotransferase (ALT/SGPT) 15, Alkaline Phosphatase 57, Total Protein 4.8L, Albumin 2.2L Microbiology 12/28/21 Blood Culture - Preliminary, Resulted No growth 12/28/21 MRSA Screen - Final, Complete MRSA not isolated Assessment/Plan Assessment/Plan Assessment/Plan Anemia C. Diff Colitis (Positive test on 12/13/2021) Enterocutaneous fistula Hx of Afib Hgb stable at 9.5 today from 9.0 yesterday, monitor with AM labs. Maintain patient on oral vancomycin. Patient did not want the steroid rectal suppository today. Encouraged patient to ambulate as much as possible. Pain controlled with tramadol. CHRIS NIEVES DO 01/03/22 1222: Subjective Time Seen by a Provider: 09:43 Subjective/Events-last exam Pt seen and examined, no new complaints and she thinks she is a little stronger today. She was sitting up in chair. Review of Systems General: No Chills; Night Sweats, Fatigue, Appetite (lack of appetite) HEENT: No Head Aches Pulmonary: No Dyspnea, No Cough Cardiovascular: No: Chest Pain Gastrointestinal: Diarrhea; No: Nausea, Vomiting, Abdominal Pain, Melena Genitourinary: No Dysuria; Frequency; No Hematuria Musculoskeletal: neck pain Neurological: Weakness; No: Numbness, Confusion Objective Exam General Appearance: No Apparent Distress, Chronically ill, Thin HEENT: PERRL/EOMI, Moist Mucous Membranes Respiratory: Lungs Clear, Normal Breath Sounds, No Accessory Muscle Use, No Respiratory Distress Cardiovascular: No Murmur, Tachycardia Gastrointestinal: normal bowel sounds, non tender, soft, other (Fistula site draining mild amount of blood) Extremity: Calf Tenderness (b/l), Pedal Edema (1+ b/l) Neurologic/Psychiatric: Alert, Oriented x3, Depressed Affect Skin: Warm/Dry, Pallor Assessment/Plan Assessment/Plan Assessment/Plan Anemia C. Diff Colitis (Positive test on 12/13/2021) Enterocutaneous fistula Hx of Afib Hgb stable at 9.5 today from 9.0 yesterday, monitor with AM labs. Maintain patient on oral vancomycin. Patient did not want the steroid rectal suppository today. Encouraged patient to ambulate as much as possible. Pain controlled with tramadol. Will discuss with SW, getting pt back to SNF. Supervisory-Addendum Brief Verification & Attestation Participated in pt care: history, MDM, physical Personally performed: exam, history, MDM, supervision of care Care discussed with: Medical Student Procedures: n/a Verification and Attestation of Medical Student E/M Service A medical student performed and documented this service. I then reviewed and verified all information documented by the medical student and made modif ications to such information, when appropriate. I personally performed a physical exam, medical decision making and then discussed any differences between the notes and made revisions as necessary to create one note. Chris Nieves , 01/03/22 , 12:22 CELIO HOOK Jan 03, 2022 09:38 CHRIS NIEVES DO Jan 03, 2022 12:22
--- NOTE | 2022-01-03 13:00 | Occupational Ther Daily Note ---
OT Current Status-Daily Note Subjective Pt alert, lying in bed. Pt agrees to therapy. No c/o pain only fatigue and weakness. Mental Status/Objective Patient Orientation: Person, Place, Time, Situation Attachments: IV, Telemetry, Other-See Comments (life vest) ADL-Treatment Independent with bed mobility. Independent with toileting. Pt threads first LE into briefs then requires assistance for 2nd LE then pt is able to complete by self. Pt ambulated to sink and washed hands independently. Alerted nrsg that pt wanted nrsg to look at surgical site. After therapy, pt lying in bed with call light/phone in reach. All needs met in room. Therapy Code Descriptions/Definitions Functional Webster Measure: 0=Not Assessed/NA 4=Minimal Assistance 1=Total Assistance 5=Supervision or Setup 2=Maximal Assistance 6=Modified [place] 3=Moderate Assistance 7=Complete IndependenceSCALE: Activities may be completed with or without assistive devices. 4-Arfdhhiyei-ipkvikk completes the activity by him/herself with no assistance from a helper. 5-Set-up or Clean-up Assistance-helper sets up or cleans up; patient completes activity. [place] assists only prior to or following the activity. 4-Supervision or Touching Assistance-helper provides verbal cues and/or touching/steadying and/or contact guard assistance as patient completes activity. Assistance may be provided throughout the activity or intermittently. 3-Partial/Moderate Assistance-helper does LESS THAN HALF the effort. [place] lifts, holds or supports trunk or limbs, but provides less than half the effort. 2-Substantial/Maximal Assistance-helper does MORE THAN HALF the effort. [place] lifts or holds trunk or limbs and provides more than half the effort. 2-Misgvkoxk-qhiyun does ALL the effort. Patient does none of the effort to complete the activity. Or, the assistance of 2 or more helpers is required for the patient to complete the activity. If activity was not attempted, code reason: 7-Patient Refused. 9-Not Applicable-not attempted and the patient did not perform the activity before the current illness, exacerbation or injury. 10-Not Attempted due to Environmental Limitations-(lack of equipment, weather restraints, etc.). 88-Not Attempted due to Medical Conditions or Safety Concerns. OT Strategic Analyst Goals Strategic Analyst Goals Time Frame: Jan 07, 2022 Eating (QC): 6 Oral Hygiene (QC): 6 Toileting Hygiene (QC): 6 Shower/Bathe Self (QC): 6 Upper Body Dressing (QC): 6 Lower Body Dressing (QC): 6 On/Off Footwear (QC): 6 Additional Goals: 1-Demonstrate ADL Tasks, 2-Verbalize Understanding, 3- ImproveStrength/Maikel 1=Demonstrate adherence to instructed precautions during ADL tasks. 2=Patient will verbalize/demonstrate understanding of assistive devices/modifications for ADL. 3=Patient will improve strength/tolerance for activity to enable patient to perform ADL's. OT Education/Plan Problem List/Assessment Assessment: Decreased Activ Tolerance, Impaired Self-Care Skills Pt would benefit from short term skilled OT services in order to increase BUE Strength and activity tolerance, and increase independence with ADLs and functional mobility in order to maximize LOF for safe discharge. Discharge Recommendations Plan/Recommendations: Continue POC Treatment Plan/Plan of Care Patient would benefit from OT for education, treatment and training to promote independence in ADL's, mobility, safety and/or upper extremity function for ADL's. Plan of Care: ADL Retraining, Functional Mobility, UE Funct Exercise/Act Treatment Duration: Jan 07, 2022 Frequency: 3 times per week (3-5 times per week) Estimated Hrs Per Day: .25 hour per day Agreement: Yes Rehab Potential: Fair Time/GCodes Start Time: 12:39 Stop Time: 12:55 Total Time Billed (hr/min): 16 Billed Treatment Time 1 visit-ADL 1 (16 min) ELIZABETH BUTLER Jan 03, 2022 13:00
[2022-01-03] MEDS: LATANOPROST 0.005% (XALATAN) OPHTH SOLN 2.5 ML OU SCH (19:57)
[2022-01-03] MEDS: AMITRIPTYLINE 25 MG (ELAVIL) TAB PO SCH (19:57)
[2022-01-04 00:11] VITALS: BP 183/93
[2022-01-04 04:17] VITALS: BP 162/83
[2022-01-04] MEDS: VANCOMYCIN 125 MG CAPSULE PO SCH ×3 (05:56→17:11)
[2022-01-04] MEDS: LEVOTHYROXINE 125 MCG (LEVOTHROID) TABLET PO SCH (05:56)
[2022-01-04 06:35] LABS: BASOPHILS % (AUTO) 1 % (0-10); EOSINOPHILS # (AUTO) 0.3 10^3/uL (0.0-0.3); EOSINOPHILS % (AUTO) 4 % (0-10); HEMATOCRIT 27 % (35-52); HEMOGLOBIN 8.8 g/dL (11.5-16.0); LYMPHOCYTES % (AUTO) 14 % (12-44); MEAN CORPUSCULAR HEMOGLOBIN 30 pg (25-34); MEAN CORPUSCULAR HGB CONC 33 g/dL (32-36); MEAN CORPUSCULAR VOLUME 91 fL (80-99); MEAN PLATELET VOLUME 10.6 fL (9.0-12.2); MONOCYTES # (AUTO) 0.3 10^3/uL (0.0-1.0); MONOCYTES % (AUTO) 5 % (0-12); NEUTROPHILS # (AUTO) 5.5 10^3/uL (1.8-7.8); NEUTROPHILS % (AUTO) 77 % (42-75); PLATELET COUNT 280 10^3/uL (130-400); WHITE BLOOD COUNT 7.1 10^3/uL (4.3-11.0)
[2022-01-04 06:59] LABS: ALBUMIN 2.1 GM/DL (3.2-4.5)
--- NOTE | 2022-01-04 06:59 | Progress Note - Hospitalist ---
Subjective HPI/CC On Admission Date Seen by Provider: Jan 04, 2022 Time Seen by Provider: 09:30 Subjective/Events-last exam Doing well NO complaints ML Aruna accepted for tomorrow Review of Systems General: Fatigue, Malaise Focused Exam Time of Focused Exam: 08:15 Objective Exam Vital Signs Vital Signs Date Time Temp Pulse Resp B/P (MAP) Pulse Ox O2 Delivery O2 Flow Rate FiO2 01/04/22 19:37 36.3 100 18 136/87 (103) 100 Room Air Capillary Refill : General Appearance: No Apparent Distress, WD/WN Respiratory: Lungs Clear, Normal Breath Sounds Cardiovascular: Regular Rate, Rhythm Neurologic/Psychiatric: Alert, Oriented x3, No Motor/Sensory Deficits, 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 Results/Procedures Lab Laboratory Tests 01/04/22 05:12 Patient resulted labs reviewed. Assessment/Plan Assessment and Plan Assess & Plan/Chief Complaint Assessment: Colitis Hematochezia Recent C diff Recent COVID Debility Ischemic cardiomyopathy Life vest maintained Plan: Pain control DC tomorrow LORENZO MIMS DO Jan 04, 2022 06:59
[2022-01-04 07:00] LABS: POTASSIUM 4.2 MMOL/L (3.6-5.0)
[2022-01-04 07:01] LABS: CALCIUM 8.1 MG/DL (8.5-10.1)
[2022-01-04 07:02] LABS: TOTAL PROTEIN 4.6 GM/DL (6.4-8.2)
[2022-01-04 07:04] LABS: BILIRUBIN,TOTAL 0.5 MG/DL (0.1-1.0)
[2022-01-04 07:06] LABS: CREATININE SERUM 0.93 MG/DL (0.60-1.30)
--- NOTE | 2022-01-04 07:33 | Progress Note - Surgery ---
CELIO HOOK 01/04/22 0733: Subjective Date Seen by a Provider: Jan 04, 2022 Time Seen by a Provider: 06:50 Subjective/Events-last exam Patient says she is doing better today. She reports better pain control, rated at a 5/10. She has been ambulating well. She reported her last BM had no BRB in it. Review of Systems General: No Chills, No Night Sweats HEENT: No Head Aches, No Dysphasia, No Sore Throat Pulmonary: No Dyspnea, No Cough Cardiovascular: Lt Headedness (on standing); No: Chest Pain Gastrointestinal: Abdominal Pain (at incision), Diarrhea; No: Nausea, Vomiting, Melena Genitourinary: No Dysuria, No Frequency, No Hematuria Musculoskeletal: No: neck pain, shoulder pain, back pain Neurological: Weakness; No: Numbness Focused Exam Time of Focused Exam: 08:15 Objective Exam Vital Signs Date Time Temp Pulse Resp B/P (MAP) Pulse Ox O2 Delivery O2 Flow Rate FiO2 01/04/22 07:25 Room Air 01/04/22 07:14 103 01/04/22 04:17 36.6 102 18 162/83 (109) 98 Room Air 01/04/22 01:00 106 01/04/22 00:11 37.1 104 20 183/93 (123) 98 Room Air 01/03/22 20:06 Room Air 01/03/22 19:41 36.5 97 18 132/86 (101) 99 Room Air 01/03/22 19:21 36.7 95 100 01/03/22 19:00 114 01/03/22 18:57 132/86 (101) 01/03/22 16:08 36.7 95 20 166/93 (117) 100 Room Air 01/03/22 14:00 156/88 (110) 01/03/22 12:00 99 01/03/22 11:37 36.7 95 18 163/91 (115) 96 Room Air 01/03/22 07:32 36.9 100 18 159/77 (104) 97 Room Air 01/03/22 07:29 Room Air I & O 01/04/22 07:00 Intake Total 1100 ml Balance 1100 ml Capillary Refill : General Appearance: No Apparent Distress, Chronically ill, Thin HEENT: PERRL/EOMI, Moist Mucous Membranes Neck: Non Tender, Supple Respiratory: Lungs Clear, Normal Breath Sounds, No Accessory Muscle Use, No Respiratory Distress Cardiovascular: Regular Rate, Rhythm, Tachycardia Peripheral Pulses: 2+ Dorsalis Pedis (R), 2+ Left Dors-Pedis (L), 2+ Radial Pulses (R), 2+ Radial Pulses (L) Gastrointestinal: non tender, soft, other (Fistula site draining brown fluid, dressing soaked through, changed last night) Extremity: Calf Tenderness (b/l), Pedal Edema (1+ b/l) Neurologic/Psychiatric: Alert, Oriented x3, No Motor/Sensory Deficits, 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 Skin: Warm/Dry, Pallor Lymphatic: No Adenopathy Results Lab Laboratory Tests 01/04/22 05:12: White Blood Count 7.1, Red Blood Count 2.97L, Hemoglobin 8.8L, Hematocrit 27L, Mean Corpuscular Volume 91, Mean Corpuscular Hemoglobin 30, Mean Corpuscular Hemoglobin Concent 33, Red Cell Distribution Width 15.8H, Platelet Count 280, Mean Platelet Volume 10.6, Immature Granulocyte % (Auto) 0, Neutrophils (%) (Auto) 77H, Lymphocytes (%) (Auto) 14, Monocytes (%) (Auto) 5, Eosinophils (%) (Auto) 4, Basophils (%) (Auto) 1, Neutrophils # (Auto) 5.5, Lymphocytes # (Auto) 1.0, Monocytes # (Auto) 0.3, Eosinophils # (Auto) 0.3, Basophils # (Auto) 0.0, Immature Granulocyte # (Auto) 0.0, Sodium Level 141, Potassium Level 4.2, Chloride Level 116H, Carbon Dioxide Level 19L, Anion Gap 6, Blood Urea Nitrogen 16, Creatinine 0.93, Estimat Glomerular Filtration Rate 64, BUN/Creatinine Ratio 17, Glucose Level 89, Calcium Level 8.1L, Corrected Calcium 9.6, Total Bilirubin 0.5, Aspartate Amino Transf (AST/SGOT) 32, Alanine Aminotransferase (ALT/SGPT) 15, Alkaline Phosphatase 60, Total Protein 4.6L, Albumin 2.1L Microbiology 12/28/21 Blood Culture - Final, Complete No growth 12/28/21 MRSA Screen - Final, Complete MRSA not isolated Assessment/Plan Assessment/Plan Assessment/Plan Anemia C. Diff Colitis (Positive test on 12/13/2021) Enterocutaneous fistula Hx of Afib Hgb stable at 8.8 today from 9.5 yesterday, monitor with AM labs. Maintain patient on oral vancomycin. Encouraged patient to ambulate as much as possible. Pain controlled with tramadol. Will discuss with SW, getting pt back to SNF. CHRIS NIEVES DO 01/04/22 1153: Subjective Time Seen by a Provider: 08:59 Subjective/Events-last exam Pt seen and examined, states she is doing better and looks better. She does think she has more fluid coming out from fistula. She was also a little concerned because she had been having solid BMs and today it was very soft. Review of Systems General: No Chills, No Night Sweats; Fatigue HEENT: No Head Aches Pulmonary: No Dyspnea, No Cough Cardiovascular: Lt Headedness (on standing); No: Chest Pain Gastrointestinal: Abdominal Pain (at incision), Diarrhea; No: Nausea, Vomiting, Melena Genitourinary: No Dysuria; Frequency; No Hematuria Objective Exam General Appearance: No Apparent Distress, Chronically ill, Thin HEENT: PERRL/EOMI, Moist Mucous Membranes Respiratory: Lungs Clear, Normal Breath Sounds, No Accessory Muscle Use, No Respiratory Distress Cardiovascular: No Murmur, Tachycardia Gastrointestinal: non tender, soft, other (Fistula site draining brown fluid, dressing soaked through, changed last night) Extremity: Calf Tenderness (b/l), Pedal Edema (1+ b/l) Neurologic/Psychiatric: Alert, Oriented x3 Skin: Pallor Assessment/Plan Assessment/Plan Assessment/Plan Anemia C. Diff Colitis (Positive test on 12/13/2021) Enterocutaneous fistula Hx of Afib Hgb stable at 8.8 today from 9.5 yesterday, monitor with AM labs. Maintain patient on oral vancomycin. We will continue to monitor fistula, since it appears to be low output. Encouraged patient to ambulate as much as possible. Pain controlled with tramadol. Will discuss with SW, getting pt back to SNF. Supervisory-Addendum Brief Verification & Attestation Participated in pt care: history, MDM, physical Personally performed: exam, history, MDM, supervision of care Care discussed with: Medical Student Procedures: n/a Verification and Attestation of Medical Student E/M Service A medical student performed and documented this service. I then reviewed and verified all information documented by the medical student and made mod ifications to such information, when appropriate. I personally performed a physical exam, medical decision making and then discussed any differences between the notes and made revisions as necessary to create one note. Chris Nieves , 01/04/22 , 11:53 CELIO HOOK Jan 04, 2022 07:33 CHRIS NIEVES DO Jan 04, 2022 11:53
[2022-01-04 07:38] VITALS: BP 141/80
[2022-01-04] MEDS: OXYBUTYNIN (DITROPAN) 5 MG TAB PO SCH ×2 (08:37→21:37)
[2022-01-04] MEDS: SACUBITRIL/VALSARTAN 24/26 MG (ENTRESTO) TABLET PO SCH ×2 (08:37→21:37)
[2022-01-04] MEDS: PANTOPRAZOLE 40 MG (PROTONIX) TAB PO SCH (08:38)
[2022-01-04] MEDS: HYDROCORTISONE 25 MG SUPPOSITORY (ANUSOL HC) PR SCH ×2 (09:19→13:21)
--- NOTE | 2022-01-04 10:17 | Physical Therapy Daily Note ---
PT Daily Note-Current Subjective Patient agrees to PT. Incontinent BM Mental Status Patient Orientation: Normal For Age Transfers SCALE: Activities may be completed with or without assistive devices. 9-Vnulgtfnsz-ymcpwif completes the activity by him/herself with no assistance from a helper. 5-Set-up or Clean-up Assistance-helper sets up or cleans up; patient completes activity. [place] assists only prior to or following the activity. 4-Supervision or Touching Assistance-helper provides verbal cues and/or touching/steadying and/or contact guard assistance as patient completes activity. Assistance may be provided throughout the activity or intermittently. 3-Partial/Moderate Assistance-helper does LESS THAN HALF the effort. [place] lifts, holds or supports trunk or limbs, but provides less than half the effort. 2-Substantial/Maximal Assistance-helper does MORE THAN HALF the effort. [place] lifts or holds trunk or limbs and provides more than half the effort. 2-Imrdmtije-atumhm does ALL the effort. Patient does none of the effort to complete the activity. Or, the assistance of 2 or more helpers is required for the patient to complete the activity. If activity was not attempted, code reason: 7-Patient Refused. 9-Not Applicable-not attempted and the patient did not perform the activity before the current illness, exacerbation or injury. 10-Not Attempted due to Environmental Limitations-(lack of equipment, weather restraints, etc.). 88-Not Attempted due to Medical Conditions or Safety Concerns. Lying to Sitting/Side of Bed(Q: 6 Sit to Stand (QC): 5 Chair/Kzw-nf-Llwhj Xfer(QC): 4 Toilet Transfer (QC): 3 Weight Bearing Right Lower Extremity: Right Full Weight Bearing Left Lower Extremity: Left Full Weight Bearing Gait Training Distance: 200' Walk 10 feet (QC): 4 Walk 50 ft with 2 Turns(QC): 4 Walk 150 ft (QC): 4 Gait Assistive Device: FWW slow, steady with no deviation Assessment Patient is up in recliner with needs met. Patient improved with increase in ambulation distance. PT Wardrobe Attendant Goals Wardrobe Attendant Goals PT Jail Goals Time Frame: Jan 07, 2022 Roll Left & Right (QC): 6 Sit to Lying (QC): 6 Lying-Sitting on Side/Bed(QC): 6 Sit to Stand (QC): 6 Chair/Bbz-en-Instn Xfer(QC): 6 Toilet Transfer (QC): 6 Car Transfer (QC): 6 Does the Patient Walk: Yes Walk 10 feet (QC): 6 Walk 50ft with 2 Turns (QC): 6 Walk 150 ft (QC): 6 PT Plan Treatment/Plan Treatment Plan: Continue Plan of Care Treatment Plan: Bed Mobility, Education, Functional Activity Maikel, Functional Strength, Group Therapy, Gait, Safety, Therapeutic Exercise, Transfers Treatment Duration: Jan 07, 2022 Frequency: 6 times per week Estimated Hrs Per Day: .25 hour per day Patient and/or Family Agrees t: Yes Time/GCodes Time In: 824 Time Out: 836 Total Billed Treatment Time: 12 Total Billed Treatment 1 visit FA 12 min ARELI JENNINGS PT Jan 04, 2022 10:17
[2022-01-04 11:57] VITALS: BP 132/68
--- NOTE | 2022-01-04 13:20 | Occ Therapy Progress Note ---
Therapy Progress Note Pt stated she was waiting for someone to tell her where she was going next and did not want to participate in therapy today. Pt was offered numerous different tasks and declined all. 1 Refusal ELIZABETH BUTLER Jan 04, 2022 13:19
[2022-01-04 15:41] VITALS: BP 145/79
[2022-01-04 19:37] VITALS: BP 136/87
[2022-01-04] MEDS: AMITRIPTYLINE 25 MG (ELAVIL) TAB PO SCH (21:37)
[2022-01-04] MEDS: LATANOPROST 0.005% (XALATAN) OPHTH SOLN 2.5 ML OU SCH (21:37)
[2022-01-05] MEDS: VANCOMYCIN 125 MG CAPSULE PO SCH ×2 (00:43→05:39)
[2022-01-05] MEDS: HYDROCORTISONE 25 MG SUPPOSITORY (ANUSOL HC) PR SCH ×2 (00:43→08:25)
[2022-01-05 00:45] VITALS: BP 133/66
[2022-01-05] MEDS: LEVOTHYROXINE 125 MCG (LEVOTHROID) TABLET PO SCH (05:39)
[2022-01-05 05:51] LABS: BASOPHILS % (AUTO) 1 % (0-10); EOSINOPHILS # (AUTO) 0.1 10^3/uL (0.0-0.3); EOSINOPHILS % (AUTO) 2 % (0-10); HEMATOCRIT 23 % (35-52); HEMOGLOBIN 7.6 g/dL (11.5-16.0); LYMPHOCYTES # (AUTO) 0.8 10^3/uL (1.0-4.0); LYMPHOCYTES % (AUTO) 13 % (12-44); MEAN CORPUSCULAR HEMOGLOBIN 29 pg (25-34); MEAN CORPUSCULAR HGB CONC 33 g/dL (32-36); MEAN CORPUSCULAR VOLUME 89 fL (80-99); MEAN PLATELET VOLUME 9.8 fL (9.0-12.2); MONOCYTES # (AUTO) 0.3 10^3/uL (0.0-1.0); MONOCYTES % (AUTO) 5 % (0-12); NEUTROPHILS % (AUTO) 79 % (42-75); PLATELET COUNT 243 10^3/uL (130-400); WHITE BLOOD COUNT 6.3 10^3/uL (4.3-11.0)
[2022-01-05 05:57] LABS: ALBUMIN 1.9 GM/DL (3.2-4.5)
[2022-01-05 05:58] LABS: CALCIUM 7.7 MG/DL (8.5-10.1)
[2022-01-05 06:00] LABS: TOTAL PROTEIN 4.2 GM/DL (6.4-8.2)
[2022-01-05 06:01] LABS: BILIRUBIN,TOTAL 0.3 MG/DL (0.1-1.0)
[2022-01-05 06:03] LABS: CREATININE SERUM 1.01 MG/DL (0.60-1.30)
[2022-01-05] MEDS ORDERED: AMLO-250 PO (06:05)
[2022-01-05] MEDS ORDERED: CETI10TA17 PO (06:05)
[2022-01-05] MEDS ORDERED: AMIT100T2 PO (06:05)
[2022-01-05] MEDS ORDERED: FERR-84 PO (06:05)
[2022-01-05] MEDS ORDERED: LEFL20TA18 PO (06:05)
[2022-01-05] MEDS ORDERED: HYDR25SU5 PR (06:05)
[2022-01-05] MEDS ORDERED: CHOL4POW4 PO (06:05)
[2022-01-05] MEDS ORDERED: PANT40TA52 PO (06:05)
[2022-01-05] MEDS ORDERED: LEVO125T6 PO (06:05)
[2022-01-05] MEDS ORDERED: ERGO1250 PO (06:05)
[2022-01-05] MEDS ORDERED: ATOR40TA PO (06:05)
[2022-01-05] MEDS ORDERED: NF-SODBICA PO (06:05)
[2022-01-05] MEDS ORDERED: VANC125C5 PO (06:05)
[2022-01-05] MEDS ORDERED: ACET-2650 PO (06:05)
[2022-01-05] MEDS ORDERED: FENO160T12 PO (06:05)
[2022-01-05] MEDS ORDERED: LATA2.5D19 OU (06:05)
[2022-01-05] MEDS ORDERED: TRM50T PO (06:05)
[2022-01-05] MEDS ORDERED: CARV3.122 PO (06:05)
[2022-01-05] MEDS ORDERED: OXYB5TAB13 PO (06:05)
[2022-01-05] MEDS ORDERED: MAGN1TAB31 PO (06:05)
[2022-01-05] MEDS ORDERED: MEGE400O20 PO (06:05)
[2022-01-05] MEDS ORDERED: SACU1TAB2 PO (06:05)
--- NOTE | 2022-01-05 06:07 | Discharge Inst-Skilled Nursing ---
Discharge Inst-Skilled NF Reconcile Patient Problems Problems Reviewed?: Yes Patient Instructions Patient Problems: Debility Goal: Carey Consult/Follow Up/Orders Follow Up Appt.: PCP MD rounds Skilled NF Admit to: [facility] Certification (SNF) I certify that SNF services are required to be given on an inpatient basis because of the above named patient's need for penitentiary care on a continuing basis for the conditions(s) for which he/she was receiving inpatient hospital services prior to his/her transfer to the SNF. Halfway Facility Order: Nursing Services, Rn Nursery-Evaluate & Treat, Physical Therapy-Evaluate & Treat Oxygen Delivery Method: Room Air Discharge Diet: No Restrictions Resuscitation Status: Full Code New & Resume Previous Orders New Medications: Vancomycin HCl (Vancomycin HCl) 125 Mg Capsule 125 MG PO BID, #14 CAP Hydrocortisone Acetate (Hydrocortisone Acetate) 25 Mg Supp.rect 1 EA OR Q8H, #12 SUPP.RECT Magnesium Carbonate/Al Hydrox (Gaviscon Es Tablet Chew) 105 Mg-160 Mg Tab.chew 2 EACH PO QID PRN for INDIGESTION, #30 TAB Tramadol HCl (Tramadol HCl) 50 Mg Tablet 50 MG PO TID PRN for PAIN-SEVERE (8-10), #30 TAB Changed Medications: Ferrous Sulfate (Iron) 325 Mg (65 Mg Iron) Tablet 325 MG PO BID, #60 TAB (Changed from: Ferrous Sulfate (Iron) 325 Mg Tablet 325 Mg PO BID) Sacubitril/Valsartan (Entresto 24 mg-26 mg Tablet) 24 Mg-26 Mg Tablet 1 MG PO BID for 30 Days, #60 TAB (Changed from: 1 TAB) Continued Medications: Acetaminophen (Tylenol Arthritis) 650 Mg Tablet.er 650 MG PO Q6H PRN for PAIN-MILD (1-4) OR TEMPATURE, #30 TAB (This prescription has been renewed) Amitriptyline HCl (Amitriptyline HCl) 100 Mg Tablet 100 MG PO HS, #30 TAB (This prescription has been renewed) Amlodipine Besylate (Amlodipine Besylate) 5 Mg Tablet 5 MG PO DAILY, #30 TAB (This prescription has been renewed) Atorvastatin Calcium (Lipitor) 40 Mg Tablet 40 MG PO 1700, #30 TAB (This prescription has been renewed) Carvedilol (Carvedilol) 3.125 Mg Tablet 3.125 MG PO BID WITH MEALS, #60 TAB (This prescription has been renewed) Cetirizine HCl (Cetirizine HCl) 10 Mg Tablet 10 MG PO DAILY, #30 TAB (This prescription has been renewed) Cholestyramine (with Sugar) (Cholestyramine Packet) 4 Gram Powd.pack 4 GM PO BID, #60 EACH (This prescription has been renewed) Ergocalciferol (Vitamin D2) (Vitamin D2) 1,250 Mcg (19750 Unit) Capsule 1250 MCG PO WED, #4 CAP (This prescription has been renewed) Fenofibrate (Fenofibrate) 160 Mg Tablet 160 MG PO HS, #30 TAB (This prescription has been renewed) Latanoprost (Xalatan) 0.005 % Drops 1 DROP OU HS, #1 EA (This prescription has been renewed) Leflunomide (Leflunomide) 20 Mg Tablet 20 MG PO DAILY, #30 TAB (This prescription has been renewed) Levothyroxine Sodium (Levothyroxine Sodium) 125 Mcg Tablet 125 MCG PO DAILY, #30 TAB (This prescription has been renewed) Megestrol Acetate (Megestrol Acetate) 400 Mg/10 Ml (10 Ml) Oral.susp 200 MG PO QIDACHS, #240 ML (This prescription has been renewed) Oxybutynin Chloride (Oxybutynin Chloride) 5 Mg Tablet 5 MG PO BID, #60 TAB (This prescription has been renewed) Pantoprazole Sodium (Pantoprazole Sodium) 40 Mg Tablet.dr 40 MG PO DAILY, #30 TAB (This prescription has been renewed) Sodium Bicarbonate (Sodium Bicarbonate) 650 Mg Tablet 650 MG PO TID, #90 TAB (This prescription has been renewed) Nena Muniz Jan 05, 2022 06:07 NNEA MUNIZ DO Jan 05, 2022 06:07
--- NOTE | 2022-01-05 06:08 | Discharge Summary ---
Discharge Summary Hospital Course Was the Problem List Reviewed?: Yes Problems/Dx: (1) Sepsis Status: Acute (2) Peritoneal fistula Status: Acute (3) Acute kidney insufficiency Status: Acute (4) Proctocolitis Status: Acute (5) Acute heart failure with reduced ejection fraction and diastolic dysfunction (6) Cardiomyopathy Status: Acute (7) Primary hypertension Status: Chronic (8) Mixed hyperlipidemia Status: Chronic (9) Ovarian cancer in remission Status: Chronic (10) Physical debility Status: Chronic (11) Solitary kidney (12) Hypothyroidism Status: Chronic (13) Diabetes mellitus Status: Chronic (14) Atrial fibrillation Status: Chronic Hospital Course Date of Admission: Dec 28, 2021 at 12:13 Admission Diagnosis : Family Physician/Provider: Hermann Zhang MD Date of Discharge: 01/05/22 Discharge Diagnosis: Debility, sepsis, colitis, c diff Hospital Course: Pt had a lengthy hospital course for 9 days after she was admitted for presumed sepsis with GI bleed and C. Diff issues. She underwent aggressive IV fluid resuscitation. 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 She was found to have no evidence of active GI bleeding. She was moved to the floor and awaited placement at the custodial at [facility]. Overall poor prognosis due to the chronic severe debility. Labs and Pending Lab Test: Laboratory Tests 01/05/22 05:35: White Blood Count 6.3, Red Blood Count 2.62L, Hemoglobin 7.6L, Hematocrit 23L, Mean Corpuscular Volume 89, Mean Corpuscular Hemoglobin 29, Mean Corpuscular Hemoglobin Concent 33, Red Cell Distribution Width 15.8H, Platelet Count 243, Mean Platelet Volume 9.8, Immature Granulocyte % (Auto) 0, Neutrophils (%) (Auto) 79H, Lymphocytes (%) (Auto) 13, Monocytes (%) (Auto) 5, Eosinophils (%) (Auto) 2, Basophils (%) (Auto) 1, Neutrophils # (Auto) 5.0, Lymphocytes # (Auto) 0.8L, Monocytes # (Auto) 0.3, Eosinophils # (Auto) 0.1, Basophils # (Auto) 0.0, Immature Granulocyte # (Auto) 0.0, Sodium Level 140, Potassium Level 4.0, Chloride Level [Pending], Carbon Dioxide Level 18L, Anion Gap 7, Blood Urea Nitrogen 14, Creatinine 1.01, Estimat Glomerular Filtration Rate 58, BUN/Creatinine Ratio 14, Glucose Level 109H, Calcium Level 7.7L, Corrected Calcium 9.4, Total Bilirubin 0.3, Aspartate Amino Transf (AST/SGOT) 18, Alanine Aminotransferase (ALT/SGPT) 14, Alkaline Phosphatase 47, Total Protein 4.2L, Albumin 1.9L Microbiology 12/28/21 Blood Culture - Final, Complete No growth 12/28/21 MRSA Screen - Final, Complete MRSA not isolated Home Meds Active Vancomycin HCl 125 Mg Capsule 125 Mg PO BID Hydrocortisone Acetate 25 Mg Supp.rect [address] Q8H Gaviscon Es Tablet Chew (Magnesium Carbonate/Al Hydrox) 105 Mg-160 Mg Tab.chew 2 Each PO QID PRN Tramadol HCl 50 Mg Tablet 50 Mg PO TID PRN Megestrol Acetate 400 Mg/10 Ml (10 Ml) Oral.susp 200 Mg PO QIDACHS Levothyroxine Sodium 125 Mcg Tablet 125 Mcg PO DAILY Leflunomide 20 Mg Tablet 20 Mg PO DAILY Vitamin D2 (Ergocalciferol (Vitamin D2)) 1,250 Mcg (00968 Unit) Capsule 1,250 Mcg PO WED Cholestyramine Packet (Cholestyramine (with Sugar)) 4 Gram Powd.pack 4 Gm PO BID Amlodipine Besylate 5 Mg Tablet 5 Mg PO DAILY Pantoprazole Sodium 40 Mg Tablet.dr 40 Mg PO DAILY Sodium Bicarbonate 650 Mg Tablet 650 Mg PO TID Entresto 24 mg-26 mg Tablet (Sacubitril/Valsartan) 24 Mg-26 Mg Tablet 1 Mg PO BID 30 Days Carvedilol 3.125 Mg Tablet 3.125 Mg PO BID WITH MEALS Lipitor (Atorvastatin Calcium) 40 Mg Tablet 40 Mg PO 1700 Tylenol Arthritis (Acetaminophen) 650 Mg Tablet.er 650 Mg PO Q6H PRN Oxybutynin Chloride 5 Mg Tablet 5 Mg PO BID Xalatan (Latanoprost) 0.005 % Drops 1 Drop OU HS Iron (Ferrous Sulfate) 325 Mg (65 Mg Iron) Tablet 325 Mg PO BID Amitriptyline HCl 100 Mg Tablet 100 Mg PO HS Fenofibrate 160 Mg Tablet 160 Mg PO HS Cetirizine HCl 10 Mg Tablet 10 Mg PO DAILY Assessment/Pt Instructions PCP [facility] rounds Discharge Planning: <30 minutes discharge planning Discharge Instructions Discharge Diet: No Restrictions Activity as Tolerated: Yes Discharge Physical Examination Vital Signs Vital Signs Date Time Temp Pulse Resp B/P (MAP) Pulse Ox O2 Delivery O2 Flow Rate FiO2 01/05/22 01:00 103 01/05/22 00:45 36.4 18 133/66 (88) 98 Room Air General Appearance: No Apparent Distress, WD/WN, Chronically ill, Thin Respiratory: Lungs Clear, Normal Breath Sounds Cardiovascular: Regular Rate, Rhythm Neurologic/Psychiatric: Alert, Oriented x3, No Motor/Sensory Deficits, 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 Allergies: Coded Allergies: Penicillins (Verified Allergy, Unknown, 08/20/20) raspberry (Verified Allergy, Unknown, 08/20/20) Discharge Summary Date of Admission Dec 28, 2021 at 12:13 Date of Discharge Discharge Date: Jan 05, 2022 Admission Diagnosis C. Difficile infection with severe anemia (initially met SIRS criteria but s ymptoms were more likely from anemia rather than sepsis) Discharge Diagnosis Assessment: Colitis Hematochezia Recent C diff Recent COVID Debility Ischemic cardiomyopathy Life vest maintained Plan: Pain control KATHY tomorrow LORENZO MIMS DO Jan 05, 2022 06:07
--- NOTE | 2022-01-05 06:46 | Progress Note - Surgery ---
CELIO HOOK 01/05/22 0646: Subjective Date Seen by a Provider: Jan 05, 2022 Time Seen by a Provider: 06:20 Subjective/Events-last exam Patient says she is feeling better today. She claimed she has no pain in her abdomen. She has been ambulating to sit in her chair and for the restroom. Her last BM was this morning and she claimed there was no BRB in it. Review of Systems General: No Chills, No Night Sweats HEENT: No Head Aches, No Dysphasia, No Sore Throat Pulmonary: No Dyspnea, No Cough Cardiovascular: No: Chest Pain, Lt Headedness Gastrointestinal: Diarrhea, Other (no BRB); No: Nausea, Vomiting, Abdominal Pain, Melena Genitourinary: No Dysuria, No Frequency, No Hematuria Musculoskeletal: No: neck pain, back pain, leg pain Neurological: No: Weakness, Confusion Focused Exam Time of Focused Exam: 08:15 Objective Exam Vital Signs Date Time Temp Pulse Resp B/P (MAP) Pulse Ox O2 Delivery O2 Flow Rate FiO2 01/05/22 01:00 103 01/05/22 00:45 36.4 101 18 133/66 (88) 98 Room Air 01/04/22 20:00 Room Air 01/04/22 19:37 36.3 100 18 136/87 (103) 100 Room Air 01/04/22 19:02 103 01/04/22 15:41 36.2 90 18 145/79 (101) 100 Room Air 01/04/22 12:24 100 01/04/22 11:57 36.3 92 18 132/68 (89) 99 Room Air 01/04/22 07:38 36.4 101 18 141/80 (100) 97 Room Air 01/04/22 07:25 Room Air 01/04/22 07:14 103 I & O 01/05/22 07:00 Intake Total 1030 ml Balance 1030 ml Capillary Refill : General Appearance: No Apparent Distress, Chronically ill HEENT: PERRL/EOMI, Moist Mucous Membranes Neck: Non Tender, Supple Respiratory: Lungs Clear, Normal Breath Sounds, No Accessory Muscle Use, No Respiratory Distress Cardiovascular: Regular Rate, Rhythm, No Murmur Peripheral Pulses: 2+ Dorsalis Pedis (R), 2+ Left Dors-Pedis (L), 2+ Radial Pulses (R), 2+ Radial Pulses (L) Gastrointestinal: non tender, soft, other (Fistula site draining increased amount of brown fluid, dressing soaked through, changed last night) Extremity: Calf Tenderness (right calf), Pedal Edema (2+ b/l) Neurologic/Psychiatric: Alert, Oriented x3, 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 Skin: Warm/Dry, Pallor Lymphatic: No Adenopathy Results Lab Laboratory Tests 01/05/22 05:35: White Blood Count 6.3, Red Blood Count 2.62L, Hemoglobin 7.6L, Hematocrit 23L, Mean Corpuscular Volume 89, Mean Corpuscular Hemoglobin 29, Mean Corpuscular Hemoglobin Concent 33, Red Cell Distribution Width 15.8H, Platelet Count 243, Mean Platelet Volume 9.8, Immature Granulocyte % (Auto) 0, Neutrophils (%) (Auto) 79H, Lymphocytes (%) (Auto) 13, Monocytes (%) (Auto) 5, Eosinophils (%) (Auto) 2, Basophils (%) (Auto) 1, Neutrophils # (Auto) 5.0, Lymphocytes # (Auto) 0.8L, Monocytes # (Auto) 0.3, Eosinophils # (Auto) 0.1, Basophils # (Auto) 0.0, Immature Granulocyte # (Auto) 0.0, Sodium Level 140, Potassium Level 4.0, Chloride Level 115H, Carbon Dioxide Level 18L, Anion Gap 7, Blood Urea Nitrogen 14, Creatinine 1.01, Estimat Glomerular Filtration Rate 58, BUN/Creatinine Ratio 14, Glucose Level 109H, Calcium Level 7.7L, Corrected Calcium 9.4, Total Bilirubin 0.3, Aspartate Amino Transf (AST/SGOT) 18, Alanine Aminotransferase (ALT/SGPT) 14, Alkaline Phosphatase 47, Total Protein 4.2L, Albumin 1.9L 01/05/22 06:15: Microbiology 12/28/21 Blood Culture - Final, Complete No growth 12/28/21 MRSA Screen - Final, Complete MRSA not isolated Assessment/Plan Assessment/Plan Assessment/Plan Anemia C. Diff Colitis (Positive test on 12/13/2021) Enterocutaneous fistula Hx of Afib Hgb decreased to 7.6 from 8.8 yesterday, monitor with AM labs. Maintain patient on oral vancomycin. We will continue to monitor fistula, since it appears to be low output. Encouraged patient to ambulate as much as possible. Pain controlled with tramadol. Will discuss with SW, getting pt back to SNF. CHRIS NIEVES DO 01/05/22 1129: Subjective Time Seen by a Provider: 09:48 Subjective/Events-last exam Pt seen and examined, states feels good today and is getting to medical lodge. Review of Systems General: No Chills, No Night Sweats HEENT: No Head Aches Pulmonary: No Dyspnea, No Cough Cardiovascular: No: Chest Pain Gastrointestinal: Diarrhea, Other (no BRB); No: Nausea, Vomiting, Abdominal Pain, Melena Objective Exam General Appearance: No Apparent Distress, Chronically ill HEENT: Moist Mucous Membranes Respiratory: Lungs Clear, Normal Breath Sounds, No Accessory Muscle Use, No Respiratory Distress Cardiovascular: Regular Rate, Rhythm, No Murmur Gastrointestinal: non tender, soft, other (Fistula site draining increased amount of brown fluid, dressing soaked through, changed last night) Extremity: Calf Tenderness (right calf), Pedal Edema (2+ b/l) Assessment/Plan Assessment/Plan Assessment/Plan Anemia C. Diff Colitis (Positive test on 12/13/2021) Enterocutaneous fistula Hx of Afib Hgb decreased to 7.6 from 8.8 yesterday, monitor with AM labs. Maintain patient on oral vancomycin. We will continue to monitor fistula, since it appears to be low output. Encouraged patient to ambulate as much as possible. Pain controlled with tramadol. Will discuss with SW, getting pt back to SNF. Supervisory-Addendum Brief Verification & Attestation Participated in pt care: history, MDM, physical Personally performed: exam, history, MDM, supervision of care Care discussed with: Medical Student Procedures: n/a Verification and Attestation of Medical Student E/M Service A medical student performed and documented this service. I then reviewed and verified all information documented by the medical student and made modifications to such information, when appropriate. I personally performed a physical exam, medical decision making and then discussed any differences between the notes and made revisions as necessary to create one note. Chris Nieves , 01/05/22 , 11:29 CELIO HOOK Jan 05, 2022 06:46 CHRIS NIEVES DO Jan 05, 2022 11:29
[2022-01-05] MEDS: OXYBUTYNIN (DITROPAN) 5 MG TAB PO SCH (08:25)
[2022-01-05] MEDS: PANTOPRAZOLE 40 MG (PROTONIX) TAB PO SCH (08:25)
[2022-01-05] MEDS: SACUBITRIL/VALSARTAN 24/26 MG (ENTRESTO) TABLET PO SCH (08:25)
[2022-01-05 08:37] VITALS: BP 122/66
[2022-01-05 11:17] VITALS: BP 122/66
== END 2022-01-05 11:42 | DRG 371 ==
LOC: ICU 12:13 → 4TH 12-29 14:24
PROVIDERS: ADMIT Family Medicine; ATTEND Family Medicine
DX: A04.71 Enterocolitis due to Clostridium difficile, recurrent (principal); E43 Unspecified severe protein-calorie malnutrition; K65.9 Peritonitis, unspecified; K92.1 Melena; D62 Acute posthemorrhagic anemia; N17.9 Acute kidney failure, unspecified; I13.0 Hypertensive heart and chronic kidney disease with heart failure and stage 1 through stage 4 chronic kidney disease, or unspecified chronic kidney disease; I50.22 Chronic systolic (congestive) heart failure; R65.10 Systemic inflammatory response syndrome (SIRS) of non-infectious origin without acute organ dysfunction; Z68.42 Body mass index [BMI] 45.0-49.9, adult; K63.2 Fistula of intestine; I48.91 Unspecified atrial fibrillation; E03.9 Hypothyroidism, unspecified; E78.2 Mixed hyperlipidemia; N18.9 Chronic kidney disease, unspecified; E11.22 Type 2 diabetes mellitus with diabetic chronic kidney disease; Z88.0 Allergy status to penicillin; M06.9 Rheumatoid arthritis, unspecified; Z90.5 Acquired absence of kidney; G72.9 Myopathy, unspecified; Z86.16 Personal history of COVID-19; R53.81 Other malaise; I25.5 Ischemic cardiomyopathy; G89.29 Other chronic pain; M54.9 Dorsalgia, unspecified; F32.A Depression, unspecified; Z20.822 Contact with and (suspected) exposure to COVID-19
CPT/HCPCS: 36410; 36415; 76937; 80048; 80053; 82728; 82947; 83540; 83550; 83605; 83735; 84100; 85025; 86850; 86900; 86901; 86920; 87040; 87081; 87636; 94664

== ENCOUNTER 2022-01-24 11:25 | Observation (INO) | payer MEDICARE ==
[~2022-01-24] VITALS: Ht 157.4 cm; Wt 45.5 kg
[~2022-01-24 11:25] MED LIST changes: -MEGE400O5 PO
--- NOTE | 2022-01-24 12:07 | ED General ---
General Chief Complaint: Altered Mental Status Stated Complaint: AMS - SOA Nursing Triage Note: Pt to ed from [facility] with staff with c/o AMS, SOA and hypoxia. state she was 88% on 2l O2, pt does not usually wear O2 Source of Information: Patient Exam Limitations: No Limitations History of Present Illness Date Seen by Provider: Jan 24, 2022 Time Seen by Provider: 11:45 Initial Comments Patient here from senior living with report of shortness of air, chest pain, weakness and low O2 despite application of oxygen at 2 L via nasal cannula. Apparently her outpatient provider was trying to work her up in the outpatient setting. She did have labs drawn this morning including CBC and CMP. Patient was sent here to the hospital for chest x-ray as well as D-dimer and troponin evaluation. D-dimer was noted to be elevated and patient was noted to be hypoxic on return to senior living. She was then sent to the emergency department for further evaluation. She apparently has had recent GI bleed. She has known history of atrial fibrillation but is off anticoagulation due to bleeding. Overall patient denies chest pain currently as well as denies shortness of air. She is on 2 L via nasal cannula and satting 98 to 100%. Patient admits to being weak and feeling dehydrated. 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 She recently completed treatment for C. difficile infection. She has noted the smell of stool and have stool leakage from dressing into adult briefs around the amanuel-area. Timing/Duration: 24 Hours Severity: Moderate Associated Systoms: Chest Pain; No Cough, No Fever/Chills, No Nausea/Vomiting, No Rash; Shortness of Air, Weakness Allergies and Home Medications Allergies Coded Allergies: Penicillins (Verified Allergy, Unknown, 08/20/20) raspberry (Verified Allergy, Unknown, 08/20/20) Patient Home Medication List Home Medication List Reviewed: Yes Acetaminophen (Tylenol Arthritis) 650 Mg Tablet.er, 650 MG PO Q6H PRN for PAIN- MILD (1-4) OR TEMPATURE Prescribed by: LORENZO MIMS on 01/05/22604 Amitriptyline HCl (Amitriptyline HCl) 100 Mg Tablet, 100 MG PO HS Prescribed by: LORENZO MIMS on 01/05/22604 Amlodipine Besylate (Amlodipine Besylate) 5 Mg Tablet, 5 MG PO DAILY Prescribed by: LORENZO MIMS on 01/05/22604 Atorvastatin Calcium (Lipitor) 40 Mg Tablet, 40 MG PO 1700 Prescribed by: LORENZO MIMS on 01/05/22604 Carvedilol (Carvedilol) 3.125 Mg Tablet, 3.125 MG PO BID WITH MEALS Prescribed by: LORENZO MIMS on 01/05/22604 Cetirizine HCl (Cetirizine HCl) 10 Mg Tablet, 10 MG PO DAILY Prescribed by: LORENZO MIMS on 01/05/22604 Cholestyramine (with Sugar) (Cholestyramine Packet) 4 Gram Powd.pack, 4 GM PO BID Prescribed by: LORENZO MIMS on 01/05/22604 Ergocalciferol (Vitamin D2) (Vitamin D2) 1,250 Mcg (01783 Unit) Capsule, 1,250 MCG PO WED Prescribed by: LORENZO MIMS on 01/05/22604 Fenofibrate (Fenofibrate) 160 Mg Tablet, 160 MG PO HS Prescribed by: LORENZO MIMS on 01/05/22604 Ferrous Sulfate (Iron) 325 Mg (65 Mg Iron) Tablet, 325 MG PO BID Prescribed by: LORENZO MIMS on 01/05/22604 Hydrocortisone Acetate (Hydrocortisone Acetate) 25 Mg Supp.rect, 1 EA FL Q8H Prescribed by: LORENZO MIMS on 01/05/22604 Latanoprost (Xalatan) 0.005 % Drops, 1 DROP OU HS Prescribed by: LORENZO MIMS on 01/05/22604 Leflunomide (Leflunomide) 20 Mg Tablet, 20 MG PO DAILY Prescribed by: LORENZO MIMS on 01/05/22604 Levothyroxine Sodium (Levothyroxine Sodium) 125 Mcg Tablet, 125 MCG PO DAILY Prescribed by: LORENZO MIMS on 01/05/22604 Magnesium Carbonate/Al Hydrox (Gaviscon Es Tablet Chew) 105 Mg-160 Mg Tab.chew, 2 EACH PO QID PRN for INDIGESTION Prescribed by: LORENZO MIMS on 01/05/22604 Megestrol Acetate (Megestrol Acetate) 400 Mg/10 Ml (10 Ml) Oral.susp, 200 MG PO QIDACHS Prescribed by: LORENZO MIMS on 01/05/22604 Oxybutynin Chloride (Oxybutynin Chloride) 5 Mg Tablet, 5 MG PO BID Prescribed by: LORENZO MIMS on 01/05/22604 Pantoprazole Sodium (Pantoprazole Sodium) 40 Mg Tablet.dr, 40 MG PO DAILY Prescribed by: LORENZO MIMS on 01/05/22604 Sacubitril/Valsartan (Entresto 24 mg-26 mg Tablet) 24 Mg-26 Mg Tablet, 1 MG PO BID Prescribed by: LORENZO MIMS on 01/05/22604 Sodium Bicarbonate (Sodium Bicarbonate) 650 Mg Tablet, 650 MG PO TID Prescribed by: LORENZO MIMS on 01/05/22604 Tramadol HCl (Tramadol HCl) 50 Mg Tablet, 50 MG PO TID PRN for PAIN-SEVERE (8- 10) Prescribed by: LORENZO MIMS on 01/05/22605 Vancomycin HCl (Vancomycin HCl) 125 Mg Capsule, 125 MG PO BID Prescribed by: LORENZO MIMS on 01/05/22604 Review of Systems Review of Systems Constitutional: see HPI; No chills, No fever; weakness EENTM: No nose congestion, No throat pain Respiratory: No cough; short of breath Cardiovascular: chest pain; No edema Gastrointestinal: see HPI; No nausea, No vomiting Genitourinary: No dysuria, No pain Musculoskeletal: No back pain; muscle weakness Skin: see HPI; No change in color Hematologic/Lymphatic: Other (Recent GI bleed) All Other Systems Reviewed Negative Unless Noted: Yes Past Hjjlqum-Isnudz-Xkrmgf Hx Patient Social History Tobacco Use?: No Substance use?: No Alcohol Use?: No Immunizations Up To Date First/Initial COVID19 Vaccinat: 2020 Second COVID19 Vaccination [place]: 2020 Third COVID19 Vaccination Date: 2020 Seasonal Allergies Seasonal Allergies: No Past Medical History Surgery/Hospitalization HX: several Surgeries: Yes Bowel Surgery, Cardiac, Gallbladder, Hysterectomy, Nephrectomy, Oophorectomy, Tonsillectomy Respiratory: No Currently Using CPAP: No Cardiac: Yes Atrial Fibrillation, High Cholesterol, Hypertension Neurological: Yes Neuropathy Reproductive Disorders: Yes (OVARIAN CANCER) 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, 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 Sexually Transmitted Disease: No HIV/AIDS: No Genitourinary: Yes (hx of nephrectomy) UTI-Chronic Gastrointestinal: Yes Obstructive Bowel, C-Diff Musculoskeletal: Yes Arthritis, Chronic Back Pain Endocrine: Yes Diabetes, Insulin dep, Hypothyroidsim HEENT: No Cancer: Yes Ovarian Did You Recieve Any Treatments: Yes What Type of Treatment Did You: Surgical Intervention Psychosocial: Yes Depression Integumentary: No Blood Disorders: No Adverse Reaction/Blood Tranf: No Family Medical History Reviewed Nursing Family Hx Arthritis 19 MOTHER Cardiovascular disease 19 MOTHER Diabetes mellitus 19 FATHER 19 MOTHER Diabetes, Hypertension PAST MEDICAL /SURGICAL HISTORY: -12/2019--HAD SEVERE C. DIFFICILE COLITIS--ADMITTED TO [facility] 01/21/20. PT HAD SYNCOPAL EPISODE WITH LOSS OF PULSE AND CPR/RESUSCITATION FOR APPROXIMATELY 2 MINUTES WITH [facility]. DURING THAT STAY SHE HAD ATRIAL FIBRILLATION WITH [employer] THAT REQUIRED CARDIOVERSION PT UNDERWENT SUBTOTAL COLECTOMY WITH PERMANENT ILEOSTOMY. PT REPORTS THAT SHE WAS ON VENTILATOR FOR 10 DAYS PT WAS TRANSFERRED FROM [facility] TO [facility], AND WAS THERE FROM 02/08/20-02/28/20, THEN TRANSFERRED HERE FOR REHAB FROM 02/28/20-03/10/20. SEEING WOUND CARE FOR DELAYED HEALING OF MIDLINE SURGICAL WOUND AND SKIN BREAKDOWN AROUND STOMA. 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 JOE -SEBACEOUS CYST OF ABDOMINAL WALL REMOVED 05/[address] JOE -SUBTOTAL COLECTOMY WITH PERMANENT ILEOSTOMY 12/2019 AT [facility] BY [address]. BRYANT Physical Exam-Suspected Sepsis Physical Exam Vital Signs Vital Signs - First Documented 01/24/22 11:34 Temp 35.2 Pulse 87 Resp 14 B/P (MAP) 101/74 (83) Pulse Ox 98 O2 Delivery Nasal Cannula O2 Flow Rate 2.00 Capillary Refill : Less Than 3 Seconds Blood Pressure Mean: 83 Height, Weight, BMI Height: '" Weight: lbs. oz. kg; 22.00 BMI Method:Stated General Appearance: No Apparent Distress, Thin HEENT: PERRL/EOMI, Pharynx Normal Neck: Non Tender, Supple Respiratory: Lungs Clear, Normal Breath Sounds Cardiovascular: Regular Rate, Rhythm, No Murmur Gastrointestinal: Non Tender, Soft, Other (Enterocutaneous fistula central lower abdomen draining feculent fluid) Genital/Rectal: Other (Fecal material noted in the perivaginal area) Back: Normal Inspection, No CVA Tenderness, No Vertebral Tenderness Extremity: Non Tender, No Calf Tenderness, No Pedal Edema Neurologic/Psychiatric: Alert, Oriented x3, No Motor/Sensory Deficits Skin: warm/dry; No rash, No ulcerations Focused Exam Lactate Level 01/24/22 11:50: Lactic Acid Level 1.27 Lactic Acid Level Laboratory Tests Test 01/24/22 11:50 Lactic Acid Level 1.27 MMOL/L (0.50-2.00) Progress/Results/Core Measures Suspected Sepsis SIRS Temperature: Pulse: 87 Respiratory Rate: 14 Blood Pressure 101 /74 Mean: 83 01/24/22 11:50: Lactic Acid Level 1.27 Results/Orders Lab Results Laboratory Tests Test 01/24/22 11:50 01/24/22 12:22 Range/Units Lactic Acid Level 1.27 0.50-2.00 MMOL/L C-Reactive Protein High Sensitivity 0.19 0.00-0.50 MG/DL Procalcitonin 0.10 H <0.10 NG/ML Urine Color YELLOW Urine Clarity CLEAR Urine pH 5.5 5-9 Urine Specific [place] 1.025 H 1.016-1.022 Urine Protein TRACE H NEGATIVE Urine Glucose (UA) NEGATIVE NEGATIVE Urine Ketones NEGATIVE NEGATIVE Urine Nitrite NEGATIVE NEGATIVE Urine Bilirubin NEGATIVE NEGATIVE Urine Urobilinogen 0.2 < = 1.0 MG/DL Urine Leukocyte Esterase NEGATIVE NEGATIVE Urine RBC (Auto) NEGATIVE NEGATIVE Urine RBC NONE /HPF Urine WBC NONE /HPF Urine Squamous Epithelial Cells RARE /HPF Urine Crystals NONE /LPF Urine Bacteria NEGATIVE /HPF Urine Casts NONE /LPF Urine Mucus NEGATIVE /LPF Urine Culture Indicated NO My Orders Orders - CORDELL GERMAN MD Hs C Reactive Protein (01/24/22 11:54) Lactic Acid Analyzer (01/24/22 11:54) Procalcitonin (Pct) (01/24/22 11:54) Blood Culture (01/24/22 11:54) Ed Iv/Invasive Line Start (01/24/22 11:54) Ua Culture If Indicated (01/24/22 12:00) Ns Iv 500 Ml (Sodium Chloride 0.9%) (01/24/22 12:15) Medications Given in ED Current Medications Medications Dose Ordered Sig/Kay Route Start Time Stop Time Status Last Admin Dose Admin Sodium Chloride 500 ml @ 0 mls/hr Q0M ONCE IV 01/24/22 12:15 01/24/22 12:16 DC 01/24/22 12:38 0 MLS/HR Vital Signs/I&O 01/24/22 11:34 Temp 35.2 Pulse 87 Resp 14 B/P (MAP) 101/74 (83) Pulse Ox 98 O2 Delivery Nasal Cannula O2 Flow Rate 2.00 Capillary Refill : Less Than 3 Seconds Blood Pressure Mean: 83 Progress Note : Progress Note Seen and evaluated. IV ordered. Labs reviewed from [facility] that were drawn this morning and shows CBC with white count of 15.7, hemoglobin of 9.5, platelets of 311 with ANC of 14.1. Chemistry from [facility] today shows sodium 140, potassium 5.2, chloride 120, BUN 29, creatinine 1.6, LFTs in normal range and glucose of 125. I did review troponin and D-dimer that was drawn here earlier today. I have reviewed chest x-ray results done earlier today. We will check blood culture, lactic acid and UA with culture now. Normal saline 500 mL bolus ordered. We will check urine via straight cath UA due to perivaginal contamination concerns. Patient has LifeVest on and we will keep that in place at this time. 1410: I did discuss the case with Dr. Newman. Patient does have elevated D-dimer from today. Currently her oxygen saturation is upper 90s to 100% on 2 L. There is concerns about initiating anticoagulation due to history of GI bleed as recently as a few weeks ago. She has acute renal insufficiency preventing CT angiogram. We will continue hydration and recheck labs tomorrow and then he can order appropriate evaluation at that time. I believe she is lower risk for pulmonary embolism given current physical exam findings and vital sign findings and risk of anticoagulation exceeds benefit given her history with current findings. This may change based on further results. Admit, observation status. Dr. Newman agrees to plan. Patient agrees to plan. Diagnostic Imaging Diagonstic Imaging: Xray Comments [facility] [place], [place] NAME: NATHANIEL CAMARILLO [facility] REC#: [id number] PT STATUS: REG CLI : 1945 PHYSICIAN: BAYLEE HERNANDEZ APRN ADMIT DATE: 01/24/22/RAD Signed Date of Exam:01/24/22 CHEST PA/LAT (2 VIEW) EXAMINATION: Chest 2 view HISTORY: DYSPNEA DIZZINESS COMPARISON: 12/13/2021 FINDINGS: Heart size and pulmonary vasculature are normal. The lungs are clear without consolidation, pleural effusion, or pneumothorax. Degenerative changes of the thoracic spine. Osseous structures are otherwise intact. Multiple metallic device overlying the lower chest. IMPRESSION: 1. No acute radiographic abnormality in the chest. Dictated by: Dictated on workstation # [id number] Dict: 01/24/22 1029 Trans: 01/24/22 1032 [facility] [id number] Interpreted by: LEOBARDO LARKIN DO Electronically signed by: LEOBARDO LARKIN DO 01/24/22 1032 Reviewed: Reviewed by Me Departure Communication (Admissions) Time/Spoke to Admitting Phy: 14:10 Impression Primary Impression: Acute kidney insufficiency Additional Impression: Elevated d-dimer Disposition: ADMITTED INPATIENT Condition: Stable Admissions Decision to Admit Reason: Admit from ER (General) Decision to Admit/Date: Jan 24, 2022 Time/Decision to Admit Time: 14:10 Departure-Patient Inst. Referrals: JUSTINO MEDRANO MD (PCP/Family) Primary Care Physician CORDELL GERMAN MD Jan 24, 2022 12:07
[2022-01-24] MEDS ORDERED: NS IV 500 ML 500 ML IV ONE (12:15)
[2022-01-24 12:31] LABS: BILIRUBIN,URINE NEGATIVE (NEGATIVE); CLARITY,URINE CLEAR; COLOR,URINE YELLOW; GLUCOSE, URINE (UA) NEGATIVE (NEGATIVE); KETONES,URINE NEGATIVE (NEGATIVE); LEUKOCYTE ESTERASE ,URINE NEGATIVE (NEGATIVE); NITRITE,URINE NEGATIVE (NEGATIVE); PH,URINE 5.5 (5-9); PROTEIN,URINE TRACE (NEGATIVE)
[2022-01-24 12:40] LABS: BACTERIA,URINE NEGATIVE /HPF; SQUAMOUS EPITHELIAL CELL,UR RARE /HPF
[2022-01-24] MEDS ORDERED: polyethylene glycoL POWDER 17 GM (MIRALAX) PACK PO PRN (14:30)
[2022-01-24] MEDS ORDERED: MELATONIN 3 MG TABLET PO PRN (14:30)
[2022-01-24] MEDS ORDERED: ACETAMINOPHEN 325 MG TABLET PO PRN (14:30)
[2022-01-24] MEDS ORDERED: ONDANSETRON 4 MG/2 ML (SDV) Z0FRAN IV PRN (14:30)
[2022-01-24] MEDS ORDERED: CALCIUM CARBONATE 500 MG (TUMS) TAB.CHEW PO PRN (14:30)
[2022-01-24] MEDS ORDERED: ONDANSETRON 4 MG (ZOFRAN) ORAL DISSOLVE TAB PO PRN (14:30)
[2022-01-24] MEDS ORDERED: ANTACID SUSP 30 ML UDC (MYLANTA) PO PRN (14:30)
[2022-01-24] MEDS ORDERED: ENOXAPARIN 40 MG/0.4 ML (LOVENOX) SYR SC SCH (15:00)
[2022-01-24 15:05] VITALS: BP 105/69
[2022-01-24] MEDS ORDERED: MEGE400O5 PO (15:09)
[2022-01-24 16:10] VITALS: BP 105/69
[2022-01-24] MEDS ORDERED: RT-ALBUTEROL SULF 2.5 MG/3 ML PRE-MIX VIAL INH PRN (16:15)
[2022-01-24 19:46] VITALS: BP 118/68
[2022-01-24] MEDS ORDERED: ACETAMINOPHEN ER 650 MG (TYLENOL ARTHRITIS) PO PRN (21:15)
[2022-01-24] MEDS ORDERED: MAG CARB/AL HYDROX EXTRA STRENGTH TAB (GAVISCON ES) PO PRN (21:15)
[2022-01-24] MEDS: HYDROCORTISONE 25 MG SUPPOSITORY (ANUSOL HC) PR SCH (22:55)
[2022-01-25] VITALS (8 sets, daily range): BP systolic 115–131; BP diastolic 59–84
[2022-01-25] MEDS: LEVOTHYROXINE 125 MCG (LEVOTHROID) TABLET PO SCH (05:52)
[2022-01-25] MEDS: HYDROCORTISONE 25 MG SUPPOSITORY (ANUSOL HC) PR SCH ×3 (05:52→20:23)
[2022-01-25] MEDS: PANTOPRAZOLE 40 MG (PROTONIX) TAB PO SCH (05:52)
[2022-01-25 05:55] LABS: CALCIUM 8.9 MG/DL (8.5-10.1); CREATININE SERUM 1.73 MG/DL (0.60-1.30); POTASSIUM 4.7 MMOL/L (3.6-5.0)
[2022-01-25] MEDS ORDERED: MEGESTROL ACETATE PO SCH (06:00)
[2022-01-25] MEDS: SACUBITRIL/VALSARTAN 24/26 MG (ENTRESTO) TABLET PO SCH ×2 (08:48→20:23)
[2022-01-25] MEDS: SODIUM BICARBONATE 650 MG TABLET PO SCH ×3 (08:48→20:23)
[2022-01-25] MEDS: OXYBUTYNIN (DITROPAN) 5 MG TAB PO SCH ×2 (08:48→20:23)
[2022-01-25] MEDS: amLODIPine 5 MG (NORVASC) TAB PO SCH (08:48)
[2022-01-25] MEDS: LORATADINE (CLARITIN) 10 MG TAB PO SCH (08:48)
[2022-01-25] MEDS: CHOLESTYRAMINE 4 GM (QUESTRAN LITE, PREVALITE) PKT PO SCH ×2 (08:48→20:23)
[2022-01-25] MEDS: FERROUS SULF 325 MG (IRON) TAB PO SCH ×2 (08:48→20:23)
[2022-01-25] MEDS: NS IV 1000 ML 1,000 ML IV SCH ×2 (08:52→18:34)
[2022-01-25] MEDS ORDERED: NON-FORMULARY MEDICATION 1 EA EA (Leflunomide 20 MG) PO SCH (09:00)
[2022-01-25] MEDS ORDERED: VITAMIN D2 1.25 MG (50,000 UNITS) CAP PO SCH (09:00)
[2022-01-25 11:35] LABS: BASOPHILS # (AUTO) 0.1 10^3/uL (0.0-0.1); BASOPHILS % (AUTO) 0 % (0-10); EOSINOPHILS # (AUTO) 0.1 10^3/uL (0.0-0.3); EOSINOPHILS % (AUTO) 1 % (0-10); HEMATOCRIT 30 % (35-52); LYMPHOCYTES # (AUTO) 0.8 10^3/uL (1.0-4.0); LYMPHOCYTES % (AUTO) 4 % (12-44); MEAN CORPUSCULAR HEMOGLOBIN 29 pg (25-34); MEAN CORPUSCULAR HGB CONC 30 g/dL (32-36); MEAN CORPUSCULAR VOLUME 94 fL (80-99); MEAN PLATELET VOLUME 11.3 fL (9.0-12.2); MONOCYTES # (AUTO) 0.6 10^3/uL (0.0-1.0); MONOCYTES % (AUTO) 3 % (0-12); NEUTROPHILS % (AUTO) 93 % (42-75); PLATELET COUNT 274 10^3/uL (130-400); WHITE BLOOD COUNT 21.6 10^3/uL (4.3-11.0)
[2022-01-25 12:36] LABS: ANISOCYTOSIS SLIGHT; BAND NEUTROPHILS 2 %; BASOPHILS % (MANUAL) 0 %; EOSINOPHILS % (MANUAL) 0 %; HYPOCHROMASIA SLIGHT; LYMPHOCYTES % (MANUAL) 3 %; MONOCYTES % (MANUAL) 1 %; NEUTROPHILS % (MANUAL) 94 %
[2022-01-25] MEDS ORDERED: ENOXAPARIN INJECTION 30 MG/0.3 ML SYR SC SCH (15:00)
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
[2022-01-25] MEDS ORDERED: metroNIDAZOLE 500MG/100ML IVPB 100 ML IV NR (17:00)
[2022-01-25] MEDS: VANCOMYCIN 125 MG CAPSULE PO SCH ×2 (18:33→23:52)
--- NOTE | 2022-01-25 19:23 | Diagnostic Imaging Report ---
INDICATION: Hypoxia. Perfusion imaging performed following intravenous administration of 5.5 mCi technetium 99m MAA. This study is interpreted in correlation with a 2 view chest x-ray one day prior. FINDINGS: There is no segmental pleural-based perfusion defect to suggest scintigraphic evidence for PE. Some mild generalized heterogeneous distribution of the radiopharmacy in keeping with radiographic features of COPD. IMPRESSION: Low probability study for PE. Dictated by: Dictated on workstation # [id number]
[2022-01-25] MEDS ORDERED: AMITRIPTYLINE 25 MG (ELAVIL) TAB PO SCH (21:00)
[2022-01-25] MEDS ORDERED: LATANOPROST 0.005% (XALATAN) OPHTH SOLN 2.5 ML OU SCH (21:00)
[2022-01-25] MEDS ORDERED: FENOFIBRATE 134 MG (LOFIBRA) CAPSULE PO SCH (21:00)
[2022-01-25] MEDS: metroNIDAZOLE 500MG/100ML IVPB 100 ML IV SCH (23:52)
[2022-01-26] MEDS: HYDROCORTISONE 25 MG SUPPOSITORY (ANUSOL HC) PR SCH ×2 (01:11→11:55)
[2022-01-26] MEDS: NS IV 1000 ML 1,000 ML IV SCH (02:37)
[2022-01-26 03:19] VITALS: BP 139/77
[2022-01-26 05:52] LABS: POTASSIUM 4.2 MMOL/L (3.6-5.0)
[2022-01-26 05:53] LABS: CALCIUM 8.5 MG/DL (8.5-10.1)
[2022-01-26 05:58] LABS: CREATININE SERUM 1.46 MG/DL (0.60-1.30)
[2022-01-26] MEDS: PANTOPRAZOLE 40 MG (PROTONIX) TAB PO SCH (06:16)
[2022-01-26] MEDS: LEVOTHYROXINE 125 MCG (LEVOTHROID) TABLET PO SCH (06:16)
[2022-01-26] MEDS: VANCOMYCIN 125 MG CAPSULE PO SCH ×2 (06:16→12:03)
[2022-01-26] MEDS ORDERED: D5 1/2 NS 1000 ML IV SOLUTION 1,000 ML IV SCH (08:00)
[2022-01-26 08:02] LABS: WHITE BLOOD COUNT 9.6 10^3/uL (4.3-11.0)
[2022-01-26 08:03] LABS: BASOPHILS # (AUTO) 0.1 10^3/uL (0.0-0.1); BASOPHILS % (AUTO) 1 % (0-10); EOSINOPHILS # (AUTO) 0.1 10^3/uL (0.0-0.3); EOSINOPHILS % (AUTO) 1 % (0-10); HEMATOCRIT 28 % (35-52); HEMOGLOBIN 8.8 g/dL (11.5-16.0); LYMPHOCYTES # (AUTO) 0.9 10^3/uL (1.0-4.0); LYMPHOCYTES % (AUTO) 10 % (12-44); MEAN CORPUSCULAR HEMOGLOBIN 29 pg (25-34); MEAN CORPUSCULAR HGB CONC 32 g/dL (32-36); MEAN CORPUSCULAR VOLUME 92 fL (80-99); MONOCYTES # (AUTO) 0.3 10^3/uL (0.0-1.0); MONOCYTES % (AUTO) 4 % (0-12); NEUTROPHILS # (AUTO) 8.2 10^3/uL (1.8-7.8); NEUTROPHILS % (AUTO) 85 % (42-75); PLATELET COUNT 211 10^3/uL (130-400)
[2022-01-26 08:17] VITALS: BP 122/77
[2022-01-26] MEDS: FERROUS SULF 325 MG (IRON) TAB PO SCH (08:21)
[2022-01-26] MEDS: amLODIPine 5 MG (NORVASC) TAB PO SCH (08:21)
[2022-01-26] MEDS: SACUBITRIL/VALSARTAN 24/26 MG (ENTRESTO) TABLET PO SCH (08:21)
[2022-01-26] MEDS: OXYBUTYNIN (DITROPAN) 5 MG TAB PO SCH (08:21)
[2022-01-26] MEDS: metroNIDAZOLE 500MG/100ML IVPB 100 ML IV SCH (08:21)
[2022-01-26] MEDS: SODIUM BICARBONATE 650 MG TABLET PO SCH ×2 (08:21→12:03)
[2022-01-26] MEDS: LORATADINE (CLARITIN) 10 MG TAB PO SCH (08:21)
[2022-01-26] MEDS: CHOLESTYRAMINE 4 GM (QUESTRAN LITE, PREVALITE) PKT PO SCH (08:22)
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
[2022-01-26] MEDS ORDERED: VANC125C5 PO (11:33)
[2022-01-26 12:00] VITALS: BP 128/70
--- NOTE | 2022-01-26 12:35 | Occupational Therapy Eval ---
OT Evaluation-General/PLF Medical Diagnosis Admission Date Jan 24, 2022 at 14:10 Medical Diagnosis: JAILENE and CKD Onset Date: Jan 24, 2022 Therapy Diagnosis Therapy Diagnosis: Reduced ADL status Precautions Precautions/Isolations: Contact Isolation, Fall Prevention Referral Physician: Trent Aceves Reason: Evaluation/Treatment Medical History Pertinent Medical History: Atrial Fib, Arthritis, DM, HTN, Hypothroidism, OA, Renal Insufficiency Current History [facility] due [facility] AMS, SOB, weakness and low O2 stats. The day she came to the ER, was [facility] last day [facility] before returning home. She will be returning home after this hospital stay. She will be living at home with her grandson. She was independent with all ADLs prior to hospitalization and confusion. She was using a walker/ cane at baseline. Reviewed History: Yes Social History Home: Single Level Current Living Status: Other Family (Grandson) ADL-Prior Level of Function SCALE: Activities may be completed with or without assistive devices. 6-Vctpbvhdti-dpdakte completes the activity by him/herself with no assistance from a helper. 5-Set-up or Clean-up Assistance-helper sets up or cleans up; patient completes activity. [place] assists only prior to or following the activity. 4-Supervision or Touching Assistance-helper provides verbal cues and/or touching/steadying and/or contact guard assistance as patient completes activity. Assistance may be provided throughout the activity or intermittently. 3-Partial/Moderate Assistance-helper does LESS THAN HALF the effort. [place] lifts, holds or supports trunk or limbs, but provides less than half the effort. 2-Substantial/Maximal Assistance-helper does MORE THAN HALF the effort. [place] lifts or holds trunk or limbs and provides more than half the effort. 7-Rayrmidlp-hsozvf does ALL the effort. Patient does none of the effort to complete the activity. Or, the assistance of 2 or more helpers is required for the patient to complete the activity. If activity was not attempted, code reason: 7-Patient Refused. 9-Not Applicable-not attempted and the patient did not perform the activity before the current illness, exacerbation or injury. 10-Not Attempted due to Environmental Limitations-(lack of equipment, weather restraints, etc.). 88-Not Attempted due to Medical Conditions or Safety Concerns. Self Care: Independent Functional Cognition: Needed Some Help DME/Equipment: Bath Chair OT Current Status Subjective Pt sitting in recliner upon arrival and agreeable to therapy eval. Pt and nursing stated d/c for today. Appearance Pt left sitting in recliner with all needs within reach. Mental Status/Objective Patient Orientation: Person, Confused, Place Attachments: IV Current Glasses/Contacts: Yes Upper Extremity ROM WFL ~165-170 shoulder flexion Upper Extremity Strength 3+/5 shoulder Field Technical Assistant strength: impaired ADL-Treatment Eating (QC): 6 Oral Hygiene (QC): 6 (per clinical judgment) Upper Body Dressing (QC): 6 (per pt report) Lower Body Dressing (QC): 6 (per pt report) On/Off Footwear (QC): 6 Toileting Hygiene (QC): 6 Per pt report, she was able to get dressed with independence this morning. Sit<>stand transfers: Sup. Pt ambulated to bathroom, performed toilet transfer with supervision and washed her hands with independence. Pt denies any self care concerns at this time. OT will discharge. Education OT Patient Education: Correct positioning, Modified ADL techniques, Progress toward Goal/Update tx plan, Purpose of tx/functional activities, Reviewed prec autions, Rehab process Teaching Recipient: Patient Teaching Methods: Discussion Response to Teaching: Verbalize Understanding, Return Demonstration OT Penitentiary Goals Penitentiary Goals 1=Demonstrate adherence to instructed precautions during ADL tasks. 2=Patient will verbalize/demonstrate understanding of assistive devices/modifications for ADL. 3=Patient will improve strength/tolerance for activity to enable patient to perform ADL's. OT Education/Plan Problem List/Assessment Assessment: No Skilled OT Needs ID'd Discharge Recommendations Plan/Recommendations: Discontinue OT Therapy Discharge Recommendati: Homemaker Support, Home & Family Equpiment Recommendations-D/C: Bath Chair Treatment Plan/Plan of Care Treatment,Training & Education: Yes Patient would benefit from OT for education, treatment and training to promote independence in ADL's, mobility, safety and/or upper extremity function for ADL's. Plan of Care: ADL Retraining, Functional Mobility Treatment Duration: Jan 26, 2022 Frequency: 1 time per week Estimated Hrs Per Day: .25 hour per day Agreement: Yes Rehab Potential: Fair Time/GCodes Start Time: 11:39 Stop Time: 11:53 Total Time Billed (hr/min): 14 Billed Treatment Time 1 visit Neli Luo OT Jan 26, 2022 12:35
--- NOTE | 2022-01-26 15:17 | Discharge Summary ---
Discharge Summary Reconcile Patient Problems Problems Reviewed?: Yes Instructions for Patient Via [employer], Assessment/Instructions See instructions Physician to follow Patient: Laureano Zhang Discharge Diet for Home: Low Sodium Diet Hospital Course Date of Admission: Jan 24, 2022 at 14:10 Admission Diagnosis : Acute kidney injury Family Physician/Provider: Vicente Date of Discharge: 01/26/22 Discharge Diagnosis: Recurrent C diff diarrhea, JAILENE on CKD Hospital Course: Zoe Garcia is a 77 year old female who presented with weakness and was admitted with JAILENE on CKD 3a. She was having some diarrhea and has a history of C diff. She was found to have a second recurrence of C diff. She was started on oral Vancomycin and will complete a prolonged taper. Her kidney function improved with IV fluids. Her diarrhea improved. She was eating and drinking. She was ambulating well with therapy. She was set up with home health care. She was given information regarding C diff by infection control nurse, Von Bernal. She should follow up at [facility] in about a week. She was discharged home in stable condition. Labs and Pending Lab Test: Laboratory Tests 01/26/22 05:12: White Blood Count 9.6, Red Blood Count 3.01L, Hemoglobin 8.8L, Hematocrit 28L, Mean Corpuscular Volume 92, Mean Corpuscular Hemoglobin 29, Mean Corpuscular Hemoglobin Concent 32, Red Cell Distribution Width 17.5H, Platelet Count 211, Mean Platelet Volume 11.0, Immature Granulocyte % (Auto) 0, Neutrophils (%) (Auto) 85H, Lymphocytes (%) (Auto) 10L, Monocytes (%) (Auto) 4, Eosinophils (%) (Auto) 1, Basophils (%) (Auto) 1, Neutrophils # (Auto) 8.2H, Lymphocytes # (Auto) 0.9L, Monocytes # (Auto) 0.3, Eosinophils # (Auto) 0.1, Basophils # (Auto) 0.1, Immature Granulocyte # (Auto) 0.0, Sodium Level 148H, Potassium Level 4.2, Chloride Level 124H, Carbon Dioxide Level 11L, Anion Gap 13, Blood Urea Nitrogen 24H, Creatinine 1.46H, Estimat Glomerular Filtration Rate 37, BUN/Creatinine Ratio 16, Glucose Level 101, Calcium Level 8.5 Microbiology 01/25/22 C. difficile DNA Amplification - Final, Complete 01/25/22 C. difficile [facility] Antigen & Toxins - Final, Complete 01/24/22 Blood Culture - Preliminary, Resulted No growth Home Meds Active Vancomycin HCl 125 Mg Capsule 250 Mg PO Q6HR 35 Days TAKE 125MG 4X DAILY FOR 10 DAYS, THEN 125MG 2X DAILY FOR 7 DAYS, THEN 125MG DAILY FOR 7 DAYS, THEN 125MG EVERY 3 DAYS FOR TWO WEEKS. Hydrocortisone Acetate 25 Mg Supp.rect 1 Ea [place] Q8H Gaviscon Es Tablet Chew (Magnesium Carbonate/Al Hydrox) 105 Mg-160 Mg Tab.chew 2 Each PO QID PRN Tramadol HCl 50 Mg Tablet 50 Mg PO TID PRN Levothyroxine Sodium 125 Mcg Tablet 125 Mcg PO DAILY Leflunomide 20 Mg Tablet 20 Mg PO DAILY Vitamin D2 (Ergocalciferol (Vitamin D2)) 1,250 Mcg (80995 Unit) Capsule 1,250 Mcg PO WED Cholestyramine Packet (Cholestyramine (with Sugar)) 4 Gram Powd.pack 4 Gm PO BID Amlodipine Besylate 5 Mg Tablet 5 Mg PO DAILY Pantoprazole Sodium 40 Mg Tablet.dr 40 Mg PO DAILY Sodium Bicarbonate 650 Mg Tablet 650 Mg PO TID Entresto 24 mg-26 mg Tablet (Sacubitril/Valsartan) 24 Mg-26 Mg Tablet 1 Mg PO BID 30 Days Carvedilol 3.125 Mg Tablet 3.125 Mg PO BID WITH MEALS Tylenol Arthritis (Acetaminophen) 650 Mg Tablet.er 650 Mg PO Q6H PRN Oxybutynin Chloride 5 Mg Tablet 5 Mg PO BID Xalatan (Latanoprost) 0.005 % Drops 1 Drop OU HS Iron (Ferrous Sulfate) 325 Mg (65 Mg Iron) Tablet 325 Mg PO BID Amitriptyline HCl 100 Mg Tablet 100 Mg PO HS Fenofibrate 160 Mg Tablet 160 Mg PO HS Cetirizine HCl 10 Mg Tablet 10 Mg PO DAILY Reported Megestrol Acetate 400 Mg/10 Ml (40 Mg/Ml) Oral.susp 20 Ml PO ACHS Patient Allergies: Coded Allergies: Penicillins (Verified Allergy, Unknown, 01/24/22) raspberry (Verified Allergy, Unknown, 01/24/22) Home Health Need/Face to Face Date of Face to Face: Jan 26, 2022 Clinical Findings: Generalized weakness and fatigue, Instability, Muscle weakness I have seen Pt [id number]: Yes Discharged To: Home Diagnosis/Conditions: C diff diarrhea JAILENE on CKD HFrEF T2DM Fistula Problems/Diagnosis/Condition: (1) Recurrent Clostridioides difficile diarrhea (2) Stage 3a chronic kidney disease (3) Atrial fibrillation (4) Diabetes mellitus (5) Fistula Patient is Homebound due to: Jenny fall risk due to instabilty, Muscle weakness Homebound Status Due to the above stated illness, injury or surgical procedure (medical condition or diagnosis) and associated clinical findings, the patient is homebound because of his/her inability to leave home except with aid of a supportive device and/or person AND leaving the home requires a considerable and taxing effort or is medically contraindicated. Pt req the following assistanc: Aid of another person, Walker Home Health Nursing Orders Home Health Services Order: Nursing Services, Vehicle Leasing And Rental Manager-Evaluate & Treat, Physical Therapy-Evaluate & Treat, Wound Care-Eval/Treat Home Health Infusion Therapy Line Start Date: Jan 24, 2022 Therapy Orders Therapy Orders: OT (must have SN or PT order), Physical Therapy Therapy Specific Orders: Eval assistive deivces, Teach strategies/cognitive deficits, Teach enviro modifications/safety, Gait training, Increase strength/endurance Certify Stmt I certify that this patient is under my care and that I, a nurse practitioner or a physician; a perinatal breastfeeding assistant working with me, had a face to face encounter that - meets the physician face to face encounter requirements with this patient as dated. Discharge Physical Exam General: Alert, Cooperative, No Acute Distress HEENT: Atraumatic, EOMI, Mucous Memb Moist/[place] Lungs: Clear to Auscultation, Normal Air Movement Heart: Regular Rate, No Murmurs Abdomen: Normal Bowel Sounds, Soft, No Tenderness Extremities: No Edema, No Tenderness/Swelling Psych/Mental Status: Mental Status NL, Mood NL SEVEN WARD MD Jan 26, 2022 15:07
[2022-01-26 15:30] VITALS: BP 131/75
[2022-01-26 16:36] VITALS: BP 131/75
== END 2022-01-26 12:03 | disposition home health service (06) ==
LOC: EDUNIT# 11:25 → ER 11:26 → UNDOADMOB 14:10 → 4TH 14:10 → UNDODISOB 01-26 12:03
PROVIDERS: ADMIT Internal Medicine; ATTEND Internal Medicine
DX: A04.71 Enterocolitis due to Clostridium difficile, recurrent (principal); I13.0 Hypertensive heart and chronic kidney disease with heart failure and stage 1 through stage 4 chronic kidney disease, or unspecified chronic kidney disease; N17.9 Acute kidney failure, unspecified; N18.31 Chronic kidney disease, stage 3a; R53.1 Weakness; E78.5 Hyperlipidemia, unspecified; E03.9 Hypothyroidism, unspecified; I48.91 Unspecified atrial fibrillation; I50.20 Unspecified systolic (congestive) heart failure; Z79.899 Other long term (current) drug therapy; Z28.311 Partially vaccinated for COVID-19
CPT/HCPCS: 78580; 80048 ×2; 81000; 83605; 84145; 85007; 85025; 85027; 86141; 87040; 87324; 87449; 87493; 96372 ×2; 96375; 96376 ×2; 97162; 97165; 99284; A9540; G0378; 36415

== ENCOUNTER → 2022-01-24 | Outpatient (CLI) | payer MEDICARE ==
[~2022-01-24] MED LIST changes: +AMLO-250 PO; +CHOL4POW4 PO; +ERGO1250 PO; +HYDR25SU5 PR; +MAGN1TAB31 PO; +MEGE400O20 PO; +MEGE400O5 PO; +TRM50T PO
--- NOTE | 2022-01-24 10:30 | Diagnostic Imaging Report ---
EXAMINATION: Chest 2 view HISTORY: DYSPNEA DIZZINESS COMPARISON: 12/13/2021 FINDINGS: Heart size and pulmonary vasculature are normal. The lungs are clear without consolidation, pleural effusion, or pneumothorax. Degenerative changes of the thoracic spine. Osseous structures are otherwise intact. Multiple metallic device overlying the lower chest. IMPRESSION: 1. No acute radiographic abnormality in the chest. Dictated by: Dictated on workstation # [id number]
== END ==
LOC: RAD 09:44
PROVIDERS: ATTEND Nurse Practitioner Family
DX: R06.00 Dyspnea, unspecified (principal); R42 Dizziness and giddiness
CPT/HCPCS: 36415; 71046; 84484; 85379

== ENCOUNTER → 2022-02-16 | Outpatient (CLI) | payer MEDICARE ==
[~2022-02-16] MED LIST changes: +MEGE400O5 PO
== END ==
LOC: CARD 13:50
PROVIDERS: ATTEND Internal Medicine Cardiovascular Disease
DX: I50.9 Heart failure, unspecified (principal)
CPT/HCPCS: 93306

== ENCOUNTER 2022-03-09 11:00 | Day surgery (SDC) | payer MEDICARE ==
[~2022-03-09] VITALS: Ht 157.5 cm; Wt 46.7 kg
[2022-03-09] VITALS (10 sets, daily range): BP systolic 114–153; BP diastolic 66–96
--- NOTE | 2022-03-09 10:16 | Diagnostic Imaging Report ---
EXAMINATION: Chest 1 view HISTORY: Preoperative evaluation. COMPARISON: 12/13/2021 FINDINGS: Heart size and pulmonary vasculature are normal. The lungs are clear without consolidation, pleural effusion, or pneumothorax. The osseous structures are intact. IMPRESSION: 1. No acute radiographic abnormality in the chest. Dictated by: Dictated on workstation # [id number]
[2022-03-09 10:21] LABS: HEMATOCRIT 29 % (35-52); HEMOGLOBIN 8.9 g/dL (11.5-16.0); MEAN CORPUSCULAR HEMOGLOBIN 28 pg (25-34); MEAN CORPUSCULAR HGB CONC 31 g/dL (32-36); MEAN CORPUSCULAR VOLUME 91 fL (80-99); MEAN PLATELET VOLUME 9.5 fL (9.0-12.2); PLATELET COUNT 343 10^3/uL (130-400); WHITE BLOOD COUNT 8.9 10^3/uL (4.3-11.0)
[2022-03-09 10:37] LABS: BILIRUBIN,URINE NEGATIVE (NEGATIVE); CLARITY,URINE CLEAR; COLOR,URINE YELLOW; GLUCOSE, URINE (UA) NEGATIVE (NEGATIVE); KETONES,URINE NEGATIVE (NEGATIVE); LEUKOCYTE ESTERASE ,URINE 2+ (NEGATIVE); NITRITE,URINE POSITIVE (NEGATIVE); PH,URINE 5.5 (5-9); PROTEIN,URINE TRACE (NEGATIVE)
[2022-03-09 10:39] LABS: ALBUMIN 3.2 GM/DL (3.2-4.5); BILIRUBIN,TOTAL 0.3 MG/DL (0.1-1.0); CREATININE SERUM 1.59 MG/DL (0.60-1.30); TOTAL PROTEIN 6.2 GM/DL (6.4-8.2)
[2022-03-09 10:40] LABS: BACTERIA,URINE LARGE /HPF; RBC,URINE 0-2 /HPF; WBC,URINE TNTC /HPF
--- NOTE | 2022-03-09 10:45 | Cardiac Procedure Note-CS/ASA ---
Pre-Procedure Note Pre-Op Procedure Note Date of Available H&P: Mar 08, 2022 Date H&P Reviewed: Mar 09, 2022 Time H&P Reviewed: 10:45 History & Physical: H&P Reviewed, Patient Examed, No changes noted Pre-Operative Diagnosis: CAD Conscious Sedation Pre-Proced Time 10:45 ASA Score 3 For ASA 3 and 4: Consider anesthesia and medical clearance. Also, for patients with a history of failed moderate sedation consider anesthesia. Airway Lungs Heart ASA score ASA 1: a normal healthy patient ASA 2: a patient with a mild systemic disease (mid diabetes, controlled hypertension, obesity ASA 3: a patient with a severe systemic disease that limits activity (angina, COPD, prior Myocardial infarction) ASA 4: a patient with an incapacitating disease that is a constant threat to life (CHF, renal failure) ASA 5: a moribund patient not expected to survive 24 hrs. (ruptured aneurysm) ASA 6: a declared brain- patient whose organs are being harvested. For emergent operations, add the letter E after the classification Mallampati Classification Grade 3 Sedation Plan Analgesia, Amnesia, Plan communicated to team members, Discussed options with patient/fam, Discussed risks with patient/fam The patient is an appropriate candidate to undergo the planned procedure, sedation, and anesthesia. The patient immediately re-assessed prior to indication. DAVID HANSON MD Mar 09, 2022 10:45
[~2022-03-09 11:00] MED LIST changes: +BACI1TAB3 PO; +CETI10TA49 PO; +HEParin (CATH LAB) 2,000 ML IV ONE; +HEParin 1000 UNIT/ML (10ML VIAL) FOR BOLUS ONE; +LATA7.5D OP; +LEVO150C4 PO; +LIDOCAINE 1% INJ 30 ML (XYLOCAINE) VIAL ONE; +MIDAZOLAM 2 MG/2 ML (VERSED) VIAL ONE; +NITRO DRIP 25000 MCG/D5W 250 ML IV ONE; +NS IV 1000 ML 1,000 ML IV SCH; +NS IV 1000 ML 1,000 ML ONE; +VERAPAMIL 5 MG/2 ML (CALAN) VIAL IV ONE; +fentaNYL INJ 100 MCG/2 ML AMP ONE
--- NOTE | 2022-03-09 11:44 | Cardiac Cath Report ---
Cardiac Cath Report Physician (s)/Steward/Stewardess [employer] Car (s) Physician DAVID HANSON MD Pre-Procedure Diagnosis Pre-Procedure Diagnosis: CAD Post-Procedure Note Procedure Start Date: Mar 09, 2022 Name of Procedure: Left heart catheterization IFR to the right coronary artery Findings/Procedure Note PROCEDURE NOTE: 77-year-old lady with history of hypertension, paroxysmal atrial fibrillation, congestive heart failure. Cardiac catheterization was advised to rule out underlying coronary artery disease. After explaining the procedure to the patient, all pros and cons were explained, all questions were answered. The patient signed the consent and then she was placed on the cardiac catheterization laboratory. Groin was prepped SL fashion local anesthesia was used. Sheath placed in the right radial artery, [place] catheter was advanced to the left ventricular cavity, pressure was measured, pullback LV to aorta was done, engage the right and left coronary system, angiogram was done. Then I advanced the IFR wire through the right coronary artery and did IFR. Initial IFR was 0.88 then repeat IFR after flushing the catheter was 1.05. Wire was removed, no complication noted. At the end of the procedure the sheath was removed. Vascular band was used FINDINGS: Hemodynamics LV 107/14, end-diastolic pressure 14 Aorta 109/71 mean of 90 ANATOMY: Left Main is free of obstructive disease Left Anterior Descending has mild disease nonobstructive disease Left Circumflex has mild disease nonobstructive disease Right Coronary Artery is a large dominant artery with 50% stenosis at the proximal and distal portion, IFR through both lesions was 1.05. LV Gram was not done, pressure was measured CONCLUSION: 1. 50% stenosis and the mid and distal right coronary artery with IFR 1.05. Nonobstructive disease 2. Otherwise mild coronary artery disease nonobstructive disease 3. Normal left ventricular end-diastolic pressure DISCUSSION AND RECOMMENDATION: Continue with medical therapy no intervention is needed Anesthesia Type: Conscious Sedation Estimated blood loss (mL): 15 ml Contrast Amount: 15 ml Total Radiation Dose: 77 mGy Post-Procedure Diagnosis Post-operative diagnosis: Coronary artery disease Congestive heart failure, chronic compensated left ventricular systolic dysfunction Paroxysmal atrial fibrillation Hypertension DAVID HANSON MD Mar 09, 2022 11:44
--- NOTE | 2022-03-09 11:44 | Discharge Inst-Post CATH ---
Discharge Inst-CATH/EP Problems Reviewed?: Yes Post Cardiac Cath/EP D/C Inst Follow Up/Plan Appointment with Dr. Gaviria's office in 2 to 4 weeks <b>CARDIAC CATH/EP PROCEDURE DISCHARGE INSTRUCTIONS</b> ACTIVITY * Go Home directly and rest. * Limit activity of the leg (or wrist if it was used) for 7 days including aer obics, swimming, jogging, bicycling, etc. * Restrict stair-climbing for 7 days if possible, if not, climb up with your non-cath leg, then bring together on the same step. * Avoid lifting, pushing, pulling or excessive movement of the affected extremi ty for 7 days. * Customary sexual activity may be resumed after 2 days-use caution not to use a position that strains or causes pain to the affected extremity. * No driving for 24 hours. * NO SMOKING. * Avoid straining for bowel movements for 7 days. * Gentle walking on level ground is allowed. * Returning to work will depend on the type of procedure and the results. Your doctor will discuss this with you. CALL YOUR DOCTOR FOR ANY OF THE FOLLOWING: *If bleeding from the puncture site occurs- Apply gentle pressure to site with clean cloth and call your doctor or EMS. * If a knot or lump forms under the skin, increases in size, or causes pain. * If bruising appears to be worsening or moving further down your leg instead of disappearing. * Temperature above 101 F. CARE OF YOUR GROIN INCISION; * Bruising or purple discoloration of the skin near the puncture site is common. * You may shower only, no bathtub bathing for 5 days. Be careful to avoid slipping as your leg may feel stiff. * If a closure device was used on your femoral artery, please see the attached guide regarding care of the device and your leg. * Leave dressing on FOR 24 hours. CARE OF YOUR WRIST INCISION; * Bruising or purple discoloration of the skin near the puncture site is common. * You may shower. * DO NOT submerge wrist. * Leave dressing on FOR 24 hours. DAVID GAVIRIA MD Mar 09, 2022 11:44
[2022-03-09] MEDS ORDERED: NS IV 1000 ML 1,000 ML IV SCH (11:45)
== END 2022-03-09 14:03 | disposition home or self-care (01) ==
LOC: CATH 11:00 → SDC 11:51 → CATH 14:03
PROVIDERS: ATTEND Internal Medicine Cardiovascular Disease
DX: I25.10 Atherosclerotic heart disease of native coronary artery without angina pectoris (principal); I11.0 Hypertensive heart disease with heart failure; I48.0 Paroxysmal atrial fibrillation; I50.22 Chronic systolic (congestive) heart failure; E11.9 Type 2 diabetes mellitus without complications; E78.2 Mixed hyperlipidemia; Z85.43 Personal history of malignant neoplasm of ovary; Z87.891 Personal history of nicotine dependence; Z79.899 Other long term (current) drug therapy; Z28.311 Partially vaccinated for COVID-19; Z79.82 Long term (current) use of aspirin; Z79.84 Long term (current) use of oral hypoglycemic drugs
CPT/HCPCS: 71045; 80053; 80061; 81000; 85027; 85610; 85730; 87077; 87081; 87088; 87186; 93005; 93458; 93571; C1769; C1894; 36415

== ENCOUNTER → 2023-02-15 | Outpatient (CLI) | payer MEDICARE ==
[~2023-02-15] MED LIST changes: -HEParin (CATH LAB) 2,000 ML IV ONE; -HEParin 1000 UNIT/ML (10ML VIAL) FOR BOLUS ONE; -INSU100V39 SQ; +INSU100V45 SQ; -LIDOCAINE 1% INJ 30 ML (XYLOCAINE) VIAL ONE; -MEGE400O20 PO; -MIDAZOLAM 2 MG/2 ML (VERSED) VIAL ONE; -NITRO DRIP 25000 MCG/D5W 250 ML IV ONE; -NS IV 1000 ML 1,000 ML IV SCH; -NS IV 1000 ML 1,000 ML ONE; +TIMO5DRO16 OU; -TIMO5DRO5 OU; -VERAPAMIL 5 MG/2 ML (CALAN) VIAL IV ONE; +[UNRECOGNIZED DRUG - CODE] PO; -fentaNYL INJ 100 MCG/2 ML AMP ONE
== END ==
LOC: RAD 08:55
PROVIDERS: ATTEND Surgery
DX: K63.2 Fistula of intestine (principal); Z53.9 Procedure and treatment not carried out, unspecified reason

== ENCOUNTER → 2023-02-15 | Outpatient (CLI) | payer MEDICARE ==
[~2023-02-15] MED LIST changes: +IOHEXOL 240 MGI/ML 20 ML (OMNIPAQUE) VIAL IV ONE; -OXYB5TAB13 PO; +OXYB5TAB14 PO
--- NOTE | 2023-02-16 15:07 | Diagnostic Imaging Report ---
PROCEDURE: CT abdomen and pelvis without contrast. TECHNIQUE: Multiple contiguous axial images were obtained through the abdomen and pelvis without the use of intravenous contrast. Auto Exposure Controls were utilized during the CT exam to meet ALARA standards for radiation dose reduction. INDICATION: Draining wound in the midline anterior abdomen. Study is performed to evaluate for enterocutaneous fistula. FINDINGS: Precontrast axial imaging through the abdomen and pelvis was performed. Next, the patient's tiny draining wound in the midline abdomen in the left paramidline location was catheterized using a Yueh catheter. A small amount of Omnipaque 240 contrast was injected. After injection, axial imaging through the abdomen and pelvis was performed. Next, the right paramidline tiny draining wound was catheterized with a Yueh catheter, and a small volume of Omnipaque 240 contrast was injected. After injection, axial imaging through the abdomen and pelvis was performed. After injection of the right paramidline drainage site, there is filling of a fistulous tract with contrast to a small cavity in the left paramidline anterior pelvis. No definite communication with the small or large bowel is identified. After injection of the right paramidline draining wound, there is filling of the same cavity as the left-sided injection with contrast. There is a separate fistulous tract extending to the right in the anterior pelvis and appears to be communicating with the small bowel loop. There is also a tract extending from the cavity posteriorly with contrast seen within a portion of the sigmoid colon. Lung bases are clear. The liver is unremarkable. Gallbladder is surgically absent. The pancreas, spleen, adrenal glands, and left kidney are unremarkable. Right kidney appears to be absent. Aorta is nonaneurysmal. There is no free fluid. 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 The right paramidline drainage site communicates with the small cavity in the left paramidline anterior pelvis. Dictated by: Dictated on workstation # [id number]
== END ==
LOC: RAD 10:15
PROVIDERS: ATTEND Surgery
DX: K63.2 Fistula of intestine (principal)
CPT/HCPCS: 74176; C1729